=== PATIENT | male | born 1950 | race American Indian/Alaskan Native ===

== ENCOUNTER 2019-12-10 13:26 | Emergency (ER) | payer MEDICARE ==
--- NOTE | 2019-12-10 17:18 | Emergency Department Report ---
ED Medical Clearance HPI - General Chief complaint: BP Check / Ring removal req Stated complaint: HIGH BP Time Seen by Provider: 12/10/19 17:02 Source: patient Mode of arrival: Ambulatory - History of Present Illness Initial comments: 69-year-old -[place] male presents to the emergency room stated that he went to [facility] and his blood pressure was elevated so they sent him to the emergency room to be evaluated. Patient denies any headache no chest pain no shortness of breath. Patient reports no past medical history except chronic back pain. Patient reports he does not have a primary care provider. MD Complaint: medical clearance request Associated Symptoms: denies: chest pain, shortness of breath, palpitations, diaphoresis, fever/chills, headaches, weakness Treatments Prior to Arrival: none Allergies/Adverse reactions: Allergies Allergy/AdvReac Type Severity Reaction Status Date / Time No Known Allergies Allergy Unverified 12/10/19 14:03 ED Review of Systems ROS: Stated complaint: HIGH BP Other details as noted in HPI Comment: All other systems reviewed and negative ED Past Medical Hx - Past Medical History Previous Medical History?: No - Surgical History Past Surgical History?: No - Social History Smoking Status: Never Smoker ED Physical Exam - General Limitations: No Limitations General appearance: alert, in no apparent distress - Head Head exam: Present: atraumatic, normocephalic - Eye Eye exam: Present: normal appearance - ENT ENT exam: Present: mucous membranes moist - Respiratory Respiratory exam: Present: normal lung sounds bilaterally. Absent: respiratory distress - Cardiovascular Cardiovascular Exam: Present: regular rate, normal rhythm. Absent: systolic murmur, diastolic murmur, rubs, gallop - GI/Abdominal GI/Abdominal exam: Present: soft, normal bowel sounds - Extremities Exam Extremities exam: Present: normal inspection, full ROM. Absent: pedal edema - Back Exam Back exam: Present: full ROM - Neurological Exam Neurological exam: Present: alert, oriented X3, normal gait - Psychiatric Psychiatric exam: Present: normal affect, normal mood - Skin Skin exam: Present: warm, dry, intact, normal color. Absent: rash ED Course Vital Signs 12/10/19 14:01 Temperature 98.4 F Pulse Rate 53 L Respiratory 16 Rate Blood Pressure 185/90 O2 Sat by Pulse 98 Oximetry ED Medical Decision Making - Lab Data Result diagrams: 12/10/19 18:06 12/10/19 18:06 - Medical Decision Making 69-year-old -[place] male presents to the emergency room stated that he went to [facility] and his blood pressure was elevated so they sent him to the emergency room to be evaluated. Patient denies any headache no chest pain no shortness of breath. Patient reports no past medical history except chronic back pain. Patient reports he does not have a primary care provider. Patient has asymptomatic elevated blood pressure. We recommend patient to follow-up with a primary care provider so he can have his blood pressure rechecked and monitored. Labs are stable. Patient is to follow-up with her primary care provider. ED Disposition Clinical Impression: Elevated blood pressure reading Disposition: -01 TO HOME OR SELFCARE Is pt being admited?: No Does the pt Need Aspirin: No Condition: Stable Instructions: Heart Healthy Diet (ED), Low Sodium Diet (ED) Additional Instructions: Recommend for you to follow-up with a primary care provider Referrals: PRIMARY CARE [Primary Care Provider] - 3-5 Days
[2019-12-10 18:27] LABS: Basophils # (Auto) 0.1 K/mm3 (0.0-0.1); Basophils % (Auto) 1.7 % (0.0-1.8); Eosinophils # (Auto) 0.6 K/mm3 (0.0-0.4); Eosinophils % (Auto) 10.3 % (0.0-4.3); Hematocrit 46.4 % (35.5-45.6); Hemoglobin 15.6 gm/dl (11.8-15.2); Lymphocytes # (Auto) 1.7 K/mm3 (1.2-5.4); Lymphocytes % (Auto) 29.5 % (13.4-35.0); Mean Corpuscular HGB Conc 34 % (32-34); Mean Corpuscular Volume 92 fl (84-94); Monocytes # (Auto) 0.6 K/mm3 (0.0-0.8); Platelet Count 165 K/mm3 (140-440); Red Blood Count 5.05 M/mm3 (3.65-5.03); Red Cell Distribution Width 15.4 % (13.2-15.2)
[2019-12-10 18:48] LABS: Alanine Aminotransferase 20 units/L (7-56); Albumin 4.5 g/dL (3.9-5); BUN/Creatinine Ratio 14; Blood Urea Nitrogen 17 mg/dL (9-20); Calcium 9.7 mg/dL (8.4-10.2); Hemolysis Index 15
[2019-12-10 20:47] VITALS: BP 169/92
== END 2019-12-10 19:30 | disposition home or self-care (01) ==
LOC: ED 13:26
DX: R03.0 Elevated blood-pressure reading, without diagnosis of hypertension (principal)
CPT/HCPCS: 36415; 80053; 85025; 99283

== ENCOUNTER 2021-02-18 19:49 | Emergency (ER) | payer MEDICARE ==
[2021-02-18] MEDS ORDERED: SODIUM CHLORIDE 0.9% 1000 ML 1,000 ML IV ONE (21:15)
[2021-02-18] MEDS ORDERED: ONDANSETRON 4 MG/2 ML INJ IV ONE (21:15)
--- NOTE | 2021-02-18 21:16 | Emergency Department Report ---
ED Abdominal Pain HPI - General Stated Complaint: NAUSEA, WEAKNESS Time Seen by Provider: 02/18/21 21:04 - History of Present Illness Initial Comments: Patient presents ambulance with anorexia. He has had no appetite for 3 days. He has not eaten anything in 3 days. He has not had anything to drink. He states that he does have nausea. He does have epigastric pain. There is no history of recent travel or trauma. Is no cough congestion. There is no hematemesis or coffee-ground emesis. He has no melenic stool. Patient states he is never had symptoms like this before. There is no chest pain or shortness of breath. Has had no fever. He has had no sick contacts. He has not eaten anything that tasted bad unusual. Pain is kind of cramping and in the epigastric area. It does not radiate or migrate. He has not noticed aggravating or alleviating factors. - Related Data Allergies Allergy/AdvReac Type Severity Reaction Status Date / Time No Known Allergies Allergy Verified 02/18/21 22:00 ED Review of Systems ROS: Stated complaint: NAUSEA, WEAKNESS Other details as noted in HPI Comment: All other systems reviewed and negative Constitutional: denies: fever Eyes: denies: eye pain ENT: denies: throat pain Respiratory: denies: cough Cardiovascular: denies: chest pain Endocrine: denies: unexplained weight loss Gastrointestinal: as per HPI Genitourinary: denies: dysuria Musculoskeletal: denies: back pain Skin: denies: rash Neurological: denies: headache Hematological/Lymphatic: denies: easy bruising ED Past Medical Hx - Family History Family history: hypertension - Social History Smoking Status: Never Smoker ED Physical Exam - General Limitations: No Limitations, Other (Pulse ox noted and normal) General appearance: alert, in no apparent distress - Head Head exam: Present: atraumatic, normocephalic, normal inspection - Eye Eye exam: Present: normal appearance, EOMI. Absent: scleral icterus - ENT ENT exam: Present: mucous membranes dry, normal external ear exam - Neck Neck exam: Present: normal inspection. Absent: meningismus - Respiratory Respiratory exam: Present: normal lung sounds bilaterally. Absent: respiratory distress - Cardiovascular Cardiovascular Exam: Present: regular rate, normal rhythm - GI/Abdominal GI/Abdominal exam: Present: soft, tenderness (Mild epigastric). Absent: guarding, rebound, pulsatile mass - Extremities Exam Extremities exam: Present: normal capillary refill. Absent: pedal edema - Back Exam Back exam: Absent: CVA tenderness (R), CVA tenderness (L) - Neurological Exam Neurological exam: Present: alert, oriented X3, CN II-XII intact. Absent: motor sensory deficit - Psychiatric Psychiatric exam: Present: normal affect, normal mood - Skin Skin exam: Present: warm, dry ED Course Vital Signs 02/18/21 22:00 Temperature 97.8 F Pulse Rate 70 Respiratory 16 Rate Blood Pressure 147/88 [Right] O2 Sat by Pulse 99 Oximetry - Reevaluation(s) Reevaluation #1: 02/18/21 21:10 EMS was met. Labs ordered. Old records reviewed. Reevaluation #2: 02/18/21 23:[address] was ordered. Reevaluation #3: 02/19/21 01:[address] was noted. This was reviewed with the patient. Subsequently discharged. ED Medical Decision Making - Lab Data Result diagrams: 02/18/21 21:42 02/18/21 21:42 Rhythm strip: Normal sinus rhythm without ectopy per monitor observe 10 seconds. - Radiology Data Radiology results: report reviewed - Medical Decision Making Patient presents with abdominal pain and nausea and vomiting. He states that he felt weak. He did have some slightly bumped pancreatic enzyme but no CT evidence of acute pancreatitis. There is no bowel obstruction. There is no tumor there is no mass. He does have an acute kidney injury and has been hydrated. He had mild hyperkalemia but did not have symptoms from this. He had been hydrated as well. This will dilute his potassium. He certainly does not appear to be dehydrated clinically at this time. He feels well. Abdomen remains soft and nontender at this time. There is no distention or tympany. He has had no vomiting or diarrhea. I do believe the discharge would be appropriate. He is tolerating liquids at this time. He was referred back to his PCP for recheck and invited to return for any problems or concerns. We have discussed dehydration. We have discussed his electrolytes. At this time, there is no evidence of focal weakness. He is not taking exogenous potassium. He does not appear to be toxic. He is able to tolerate orals without difficulty. Critical Care Time: No Critical care attestation.: If time is entered above; I have spent that time in minutes in the direct care of this critically ill patient, excluding procedure time. ED Disposition Clinical Impression: General weakness, Anorexia, Hyperkalemia, HARDIK (acute kidney injury), Hyponatremia Disposition: 01 HOME / SELF CARE / HOMELESS Is pt being admited?: No Condition: Stable Instructions: Acute Kidney Injury, Adult, Weakness, [id number], Hyperkalemia Additional Instructions: Do not eat bananas or drink orange juice. Return for problems. Follow-up with your regular doctor in 48 hours for recheck. If you cannot follow-up with your doctor, return here. Eat a regular and balanced diet. Referrals: NEVAEH WILEY MD [Primary Care Provider] - 2-3 Days
[2021-02-18 22:07] LABS: Hematocrit 45.7 % (35.5-45.6); Hemoglobin 15.3 gm/dl (11.8-15.2); Mean Corpuscular HGB Conc 33 % (32-34); Mean Corpuscular Volume 93 fl (84-94); Red Blood Count 4.92 M/mm3 (3.65-5.03); Red Cell Distribution Width 17.3 % (13.2-15.2)
[2021-02-18 22:23] LABS: Alanine Aminotransferase 8 units/L (7-56); Albumin 4.2 g/dL (3.9-5); BUN/Creatinine Ratio 16; Blood Urea Nitrogen 28 mg/dL (9-20); Calcium 9.8 mg/dL (8.4-10.2); Hemolysis Index 62
[2021-02-18 22:29] LABS: Platelet Count 237 K/mm3 (140-440)
--- NOTE | 2021-02-19 00:08 | Cat Scan Report ---
CT ABDOMEN AND PELVIS WITHOUT CONTRAST INDICATION / CLINICAL INFORMATION: Abdominal pain, elevated lipase. TECHNIQUE: Axial CT images were obtained through the abdomen and pelvis without IV contrast. All CT scans at this location are performed using CT dose reduction for ALARA by means of automated exposure control. COMPARISON: None available. FINDINGS: LOWER CHEST: Mild bibasilar bronchiectasis and scarring. No acute airspace disease. LIVER: No significant abnormality. GALLBLADDER: No significant abnormality. BILE DUCTS: No significant abnormality. PANCREAS: No significant abnormality. No peripancreatic inflammation. SPLEEN: No significant abnormality. ADRENALS: No significant abnormality. RIGHT KIDNEY / URETER: No significant abnormality. LEFT KIDNEY / URETER: No significant abnormality. STOMACH / SMALL BOWEL: No significant abnormality. COLON: No significant abnormality. APPENDIX: No significant abnormality. PERITONEUM: No free fluid. No free air. No fluid collection. LYMPH NODES: No significant adenopathy. AORTA / ARTERIES: Mild atherosclerotic calcification without acute abnormality. IVC / VEINS: No significant abnormality. URINARY BLADDER: No significant abnormality. REPRODUCTIVE ORGANS: No significant abnormality. ADDITIONAL FINDINGS: None. SKELETAL SYSTEM: No significant abnormality. IMPRESSION: 1. No acute process in the abdomen or pelvis. No CT evidence for acute pancreatitis. Signer Name: Timbo Montoya MD Signed: 02/19/2021 12:04 AM Workstation Name: [id number]
[2021-02-19] MEDS ORDERED: METOCLOPRAMIDE 10 MG/2 ML INJ IV ONE (01:31)
[2021-02-19 02:22] VITALS: BP 127/87
== END 2021-02-19 02:23 | disposition home or self-care (01) ==
LOC: ED 19:49
DX: E87.5 Hyperkalemia (principal); R53.1 Weakness; R63.0 Anorexia; N17.9 Acute kidney failure, unspecified; E87.1 Hypo-osmolality and hyponatremia; R10.13 Epigastric pain
CPT/HCPCS: 36415; 74176; 80053; 83690; 84484; 85027; 96361; 96374; 96375; 99284; J2405; J2765; J7030

== ENCOUNTER 2021-05-06 23:57 | Inpatient (IN) | payer MEDICARE ==
[2021-05-07] MEDS ORDERED: ACETAMINOPHEN 500 MG TAB PO ONE (05:32)
--- NOTE | 2021-05-07 05:34 | Event Note ---
ED Screening Note Date of service: 05/07/21 Time: 05:33 ED Screening Note: Patient is a 20-year-old -[place]ian male with a history of chronic renal failure who presented to the ED with complaint of acute onset persistent bilateral foot and ankle swelling with severe pain for the last 1 week, worse in the last 2 days. Patient states that he has been on his feet extensively in the last 1 week and that the swelling has worsened. Patient denies dizziness, syncope, chest pain, shortness of breath, traumatic injury, fall, numbness and tingling or weakness of lower extremities bilaterally, low back pain, fever and chills. This initial assessment/diagnostic orders/clinical plan/treatment(s) is/are subject to change based on patients health status, clinical progression and re- assessment by fellow clinical providers in the ED. Further treatment and workup at subsequent clinical providers discretion. Patient/guardian urged not to elope from the ED as their condition may be serious if not clinically assessed and managed. Initial orders include: CBC, CMP, BNP,
[2021-05-07 06:29] LABS: Basophils # (Auto) 0.1 K/mm3 (0.0-0.1); Basophils % (Auto) 0.6 % (0.0-1.8); Eosinophils % (Auto) 0.5 % (0.0-4.3); Hematocrit 36.3 % (35.5-45.6); Hemoglobin 11.7 gm/dl (11.8-15.2); Lymphocytes # (Auto) 1.3 K/mm3 (1.2-5.4); Lymphocytes % (Auto) 15.1 % (13.4-35.0); Mean Corpuscular HGB Conc 32 % (32-34); Mean Corpuscular Volume 87 fl (84-94); Monocytes # (Auto) 1.2 K/mm3 (0.0-0.8); Monocytes % (Auto) 13.7 % (0.0-7.3); Platelet Count 233 K/mm3 (140-440); Red Blood Count 4.16 M/mm3 (3.65-5.03); Red Cell Distribution Width 16.4 % (13.2-15.2)
[2021-05-07 06:53] LABS: Alanine Aminotransferase 11 units/L (7-56); Albumin 3.8 g/dL (3.9-5); BUN/Creatinine Ratio 13; Blood Urea Nitrogen 18 mg/dL (9-20); Calcium 8.8 mg/dL (8.4-10.2); Hemolysis Index 0
--- NOTE | 2021-05-07 06:55 | Emergency Department Report ---
ED General Adult HPI - General Chief complaint: Extremity Problem,Nontraumatic Stated complaint: DOES NOT FEEL WELL PUI?: No Time Seen by Provider: 05/07/21 06:33 Source: patient Mode of arrival: Wheelchair Limitations: No Limitations, Physical Limitation - History of Present Illness Initial comments: Chief complaint: Feet swelling HPI: This is a 70-year-old male with history of CKD, hypertension, depression who presents with ankle and foot swelling with pain for 1 to 2 weeks. He denies shortness of breath, chest pain. No known history of heart failure. -: Gradual, week(s) (1 to 2 weeks) Location: left, right, lower extremity Severity scale (0 -10): 5 Consistency: constant Improves with: none Worsens with: none Associated Symptoms: denies other symptoms Treatments Prior to Arrival: none - Related Data Allergies Allergy/AdvReac Type Severity Reaction Status Date / Time No Known Allergies Allergy Verified 02/18/21 22:00 ED Review of Systems ROS: Stated complaint: DOES NOT FEEL WELL Other details as noted in HPI Comment: All other systems reviewed and negative Constitutional: denies: fever, malaise Respiratory: denies: cough, shortness of breath Cardiovascular: denies: chest pain Gastrointestinal: denies: abdominal pain, nausea, vomiting Skin: rash, lesions, change in color ED Past Medical Hx - Past Medical History Previous Medical History?: Yes Hx Hypertension: Yes Hx Psychiatric Treatment: (depression) - Surgical History Past Surgical History?: No - Social History Smoking Status: Never Smoker Substance Use Type: None ED Physical Exam - General Limitations: No Limitations, Physical Limitation General appearance: alert, in no apparent distress - Head Head exam: Present: atraumatic, normocephalic - Eye Eye exam: Present: normal appearance - ENT ENT exam: Present: mucous membranes moist - Neck Neck exam: Present: normal inspection, full ROM - Respiratory Respiratory exam: Present: normal lung sounds bilaterally. Absent: respiratory distress, wheezes, rales, rhonchi, stridor - Cardiovascular Cardiovascular Exam: Present: regular rate, normal rhythm. Absent: systolic murmur, diastolic murmur, rubs, gallop - GI/Abdominal GI/Abdominal exam: Present: soft, normal bowel sounds. Absent: distended, tenderness, guarding, rebound - Rectal Rectal exam: Present: deferred - Extremities Exam Extremities exam: Present: other (Bilateral feet erythematous edematous intact pedal pulses, lower legs scaly flaking skin) - Back Exam Back exam: Present: normal inspection - Neurological Exam Neurological exam: Present: alert, oriented X3 - Psychiatric Psychiatric exam: Present: normal mood, flat affect - Skin Skin exam: Present: warm, dry, intact, normal color. Absent: rash ED Course Vital Signs 05/07/21 03:31 Temperature 99.3 F Pulse Rate 80 Respiratory 19 Rate Blood Pressure 180/100 [Right] O2 Sat by Pulse 97 Oximetry ED Medical Decision Making - Lab Data Result diagrams: 05/07/21 06:09 05/07/21 06:09 - EKG Data -: EKG Interpreted by Me - EKG Data 05/07/21 08:52 EKG obtained 0846 EKG read by me Rate 70 bpm normal sinus rhythm normal axis normal intervals PVC present positive LVH no significant ST elevation nonspecific T wave pattern - Radiology Data Radiology results: report reviewed [facility] [address] [place] [address] XRay Report Signed Patient: MOO ROCHA MR#: [id number] : 1950 Acct:[id number] Age/Sex: 70 / M ADM Date: 05/06/21 Loc: ED Attending Dr: Ordering Physician: Franci Murguia MD Date of Service: 05/07/21 Procedure(s): XR chest routine 2V Accession Number(s): [id number] cc: Franci Murguia MD Fluoro Time In Minutes: CHEST 2 VIEWS INDICATION / CLINICAL INFORMATION: leg swelling. COMPARISON: None available. FINDINGS: SUPPORT DEVICES: None. HEART / MEDIASTINUM: No significant abnormality. LUNGS / PLEURA: Mild increased interstitial prominence/chronic changes in the lower lungs No pneumothorax. ADDITIONAL FINDINGS: No significant additional findings. IMPRESSION: 1. No acute findings. Signer Name: Mariusz Melgar MD Signed: 05/07/2021 7:51 AM Workstation Name: [id number] Transcribed By: WOODY Dictated By: NEERU MELGAR MD Electronically Authenticated By: NEERU MELGAR MD Signed Date/Time: 05/07/21750 DD/ 9 TD/TT: - Medical Decision Making 1. Subacute lower extremity swelling due to right-sided heart failure will need further evaluation treatment Admitted to hospital service. 2. Venous stasis dermatitis with superimposed cellulitis: IV clindamycin administered in the ED Critical care attestation.: If time is entered above; I have spent that time in minutes in the direct care of this critically ill patient, excluding procedure time. ED Disposition Clinical Impression: Acute heart failure, Venous stasis dermatitis of both lower extremities, Bilateral lower leg cellulitis Disposition: 09 ADMITTED INPATIENT Is pt being admited?: Yes Does the pt Need Aspirin: No Condition: Stable Referrals: SILVERIO CEJA MD [Primary Care Provider] - 3-5 Days
--- NOTE | 2021-05-07 07:55 | XRay Report ---
CHEST 2 VIEWS INDICATION / CLINICAL INFORMATION: leg swelling. COMPARISON: None available. FINDINGS: SUPPORT DEVICES: None. HEART / MEDIASTINUM: No significant abnormality. LUNGS / PLEURA: Mild increased interstitial prominence/chronic changes in the lower lungs No pneumoth orax. ADDITIONAL FINDINGS: No significant additional findings. IMPRESSION: 1. No acute findings. Signer Name: Mariusz Melgar MD Signed: 05/07/2021 7:51 AM Workstation Name: [id number] [id number]
[2021-05-07] MEDS ORDERED: CLINDAMYCIN 600 MG/50 mL 600 MG/50 ML BAG IV ONE (08:19)
--- NOTE | 2021-05-07 09:45 | History and Physical Report ---
History of Present Illness Date of examination: 05/07/21 Date of admission: 05/07/2021 Chief complaint: BLE edema History of present illness: 70-year-old male with history of CKD, hypertension, depression who presents with ankle and foot swelling with pain for 1 to 2 weeks. He denies shortness of breath, chest pain. No headache or visual disturbances. Patient denies PND or orthopnea. No diaphoresis. No nausea vomiting Past History Past Medical History: hypertension Medications and Allergies Allergies Allergy/AdvReac Type Severity Reaction Status Date / Time No Known Allergies Allergy Verified 02/18/21 22:00 Review of Systems All systems: negative Exam - Constitutional Vitals: Temp Pulse Resp BP Pulse Ox 99.3 F 80 19 180/100 97 05/07/21 03:31 05/07/21 03:31 05/07/21 03:31 05/07/21 03:31 05/07/21 03:31 General appearance: Present: no acute distress, well-nourished - EENT Eyes: Present: PERRL ENT: hearing intact, clear oral mucosa - Neck Neck: Present: supple, normal ROM - Respiratory Respiratory effort: normal Respiratory: bilateral: CTA - Cardiovascular Heart Sounds: Present: S1 & S2. Absent: rub, click - Extremities Extremities: pulses symmetrical Extremity abnormal: edema Peripheral Pulses: within normal limits - Abdominal General gastrointestinal: Present: soft, non-tender, non-distended, normal bowel sounds Male genitourinary: Present: normal - Integumentary Integumentary: Present: clear, warm, dry - Musculoskeletal Musculoskeletal: gait normal, strength equal bilaterally - Psychiatric Psychiatric: appropriate mood/affect, intact judgment & insight - Neurologic Neurologic: CNII-XII intact, moves all extremities HEART Score - HEART Score Troponin: Troponin T < 0.010 ng/mL (0.00-0.029) 05/07/21 07:10 Results - Labs CBC & Chem 7: 05/07/21 06:09 05/07/21 06:09 Labs: Laboratory Last Values WBC 8.6 K/mm3 (4.5-11.0) 05/07/21 06:09 RBC 4.16 M/mm3 (3.65-5.03) 05/07/21 06:09 Hgb 11.7 gm/dl (11.8-15.2) L 05/07/21 06:09 Hct 36.3 % (35.5-45.6) 05/07/21 06:09 MCV 87 fl (84-94) 05/07/21 06:09 MCH 28 pg (28-32) 05/07/21 06:09 MCHC 32 % (32-34) 05/07/21 06:09 RDW 16.4 % (13.2-15.2) H 05/07/21 06:09 Plt Count 233 K/mm3 (140-440) 05/07/21 06:09 Lymph % (Auto) 15.1 % (13.4-35.0) 05/07/21 06:09 Hood % (Auto) 13.7 % (0.0-7.3) H 05/07/21 06:09 Eos % (Auto) 0.5 % (0.0-4.3) 05/07/21 06:09 Baso % (Auto) 0.6 % (0.0-1.8) 05/07/21 06:09 Lymph # (Auto) 1.3 K/mm3 (1.2-5.4) 05/07/21 06:09 Hood # (Auto) 1.2 K/mm3 (0.0-0.8) H 05/07/21 06:09 Eos # (Auto) 0.0 K/mm3 (0.0-0.4) 05/07/21 06:09 Baso # (Auto) 0.1 K/mm3 (0.0-0.1) 05/07/21 06:09 Seg Neutrophils % 70.1 % (40.0-70.0) H 05/07/21 06:09 Seg Neutrophils # 6.1 K/mm3 (1.8-7.7) 05/07/21 06:09 Sodium 144 mmol/L (137-145) 05/07/21 06:09 Potassium 4.5 mmol/L (3.6-5.0) 05/07/21 06:09 Chloride 104.1 mmol/L (98-107) 05/07/21 06:09 Carbon Dioxide 26 mmol/L (22-30) 05/07/21 06:09 Anion Gap 18 mmol/L 05/07/21 06:09 BUN 18 mg/dL (9-20) 05/07/21 06:09 Creatinine 1.4 mg/dL (0.8-1.3) H 05/07/21 06:09 Estimated GFR > 60 ml/min 05/07/21 06:09 BUN/Creatinine Ratio 13 % 05/07/21 06:09 Glucose 112 mg/dL (75-100) H 05/07/21 06:09 Calcium 8.8 mg/dL (8.4-10.2) 05/07/21 06:09 Total Bilirubin 0.50 mg/dL (0.1-1.2) 05/07/21 06:09 AST 29 units/L (5-40) 05/07/21 06:09 ALT 11 units/L (7-56) 05/07/21 06:09 Alkaline Phosphatase 93 units/L (35-129) 05/07/21 06:09 Troponin T < 0.010 ng/mL (0.00-0.029) 05/07/21 07:10 NT-Pro-B Natriuret Pep 1206 pg/mL (0-900) H 05/07/21 06:09 Total Protein 7.0 g/dL (6.3-8.2) 05/07/21 06:09 Albumin 3.8 g/dL (3.9-5) L 05/07/21 06:09 Albumin/Globulin Ratio 1.2 % 05/07/21 06:09 Assessment and Plan Assessment and plan: Mild CHF. Bilateral lower extremity edema Hypertension 05/07/2021. Patient will be admitted to the hospital with diagnosis of mild heart failure. Etiology of systolic or diastolic dysfunction yet to be determined. We will obtain an echocardiogram for further evaluation. Patient has a mildly elevated BNP at 1206. We will also check bilateral lower extremity Dopplers for lower extremity edema
[2021-05-07] MEDS ORDERED: ONDANSETRON 4 MG/2 ML INJ IV PRN ×2 (09:48→09:52)
[2021-05-07] MEDS ORDERED: MORPHINE 4 MG/1 ML INJ IV PRN ×2 (09:48→21:48)
[2021-05-07] MEDS ORDERED: ACETAMINOPHEN 325 MG TAB PO PRN ×3 (09:48→21:48)
[2021-05-07] MEDS: carvediloL 3.125 MG TAB PO SCH (13:17)
[2021-05-07] MEDS: FUROSEMIDE 20 MG/2 ML INJ IV SCH (13:18)
[2021-05-07] MEDS: LISINOPRIL 5 MG TAB PO SCH (14:28)
[2021-05-07] MEDS ORDERED: MORPHINE 2 MG/1 ML INJ IV PRN (21:48)
[2021-05-08] MEDS: LISINOPRIL 5 MG TAB PO SCH ×3 (00:40→21:49)
[2021-05-08] MEDS: carvediloL 3.125 MG TAB PO SCH ×3 (00:40→21:48)
[2021-05-08] MEDS: HYDROcodone/ACETAMINOPHEN 5-325 MG TAB PO PRN ×3 (00:47→21:49)
[2021-05-08 08:38] LABS: Basophils % (Auto) 0.7 % (0.0-1.8); Eosinophils # (Auto) 0.1 K/mm3 (0.0-0.4); Eosinophils % (Auto) 1.2 % (0.0-4.3); Hematocrit 34.4 % (35.5-45.6); Hemoglobin 10.9 gm/dl (11.8-15.2); Lymphocytes # (Auto) 1.3 K/mm3 (1.2-5.4); Lymphocytes % (Auto) 21.8 % (13.4-35.0); Mean Corpuscular HGB Conc 32 % (32-34); Mean Corpuscular Volume 87 fl (84-94); Monocytes # (Auto) 0.9 K/mm3 (0.0-0.8); Monocytes % (Auto) 15.2 % (0.0-7.3); Platelet Count 285 K/mm3 (140-440); Red Blood Count 3.95 M/mm3 (3.65-5.03); Red Cell Distribution Width 16.6 % (13.2-15.2)
[2021-05-08 09:01] LABS: BUN/Creatinine Ratio 14; Blood Urea Nitrogen 20 mg/dL (9-20); Calcium 8.8 mg/dL (8.4-10.2); Hemolysis Index 4
--- NOTE | 2021-05-08 09:19 | Progress Note ---
Assessment and Plan Assessment and plan: Mild CHF. Bilateral lower extremity edema Hypertension 05/07/2021. Patient will be admitted to the hospital with diagnosis of mild heart failure. Etiology of systolic or diastolic dysfunction yet to be determined. We will obtain an echocardiogram for further evaluation. Patient has a mildly elevated BNP at 1206. We will also check bilateral lower extremity Dopplers for lower extremity edema 05/08/2021. Await bilateral lower extremity Dopplers and echocardiogram. Consider cardiology consultation for CHF. Continue aspirin, Coreg 3.125 p.o. twice daily, lisinopril 5 mg p.o. twice daily and Lasix IV. History Interval history: No new issues overnight Hospitalist Physical - Constitutional Vitals: Temp Pulse Resp BP Pulse Ox 98.4 F 74 18 148/78 98 05/08/21 08:09 05/08/21 08:09 05/08/21 08:09 05/08/21 08:09 05/08/21 08:09 General appearance: Present: no acute distress, well-nourished - EENT Eyes: Present: PERRL, EOM intact ENT: hearing intact, clear oral mucosa, dentition normal - Neck Neck: Present: supple, normal ROM - Respiratory Respiratory effort: normal Respiratory: bilateral: CTA - Cardiovascular Rhythm: regular Heart Sounds: Present: S1 & S2. Absent: gallop, rub - Extremities Extremities: no ischemia, No edema, Full ROM - Abdominal General gastrointestinal: soft, non-tender, non-distended, normal bowel sounds - Integumentary Integumentary: Present: clear, warm, dry - Neurologic Neurologic: CNII-XII intact, moves all extremities HEART Score - HEART Score Troponin: Troponin T < 0.010 ng/mL (0.00-0.029) 05/07/21 07:10 Results - Labs CBC & Chem 7: 05/08/21 08:19 05/08/21 08:19 Labs: Laboratory Last Values WBC 5.7 K/mm3 (4.5-11.0) 05/08/21 08:19 RBC 3.95 M/mm3 (3.65-5.03) 05/08/21 08:19 Hgb 10.9 gm/dl (11.8-15.2) L 05/08/21 08:19 Hct 34.4 % (35.5-45.6) L 05/08/21 08:19 MCV 87 fl (84-94) 05/08/21 08:19 MCH 28 pg (28-32) 05/08/21 08:19 MCHC 32 % (32-34) 05/08/21 08:19 RDW 16.6 % (13.2-15.2) H 05/08/21 08:19 Plt Count 285 K/mm3 (140-440) 05/08/21 08:19 Lymph % (Auto) 21.8 % (13.4-35.0) 05/08/21 08:19 [place] % (Auto) 15.2 % (0.0-7.3) H 05/08/21 08:19 Eos % (Auto) 1.2 % (0.0-4.3) 05/08/21 08:19 Baso % (Auto) 0.7 % (0.0-1.8) 05/08/21 08:19 Lymph # (Auto) 1.3 K/mm3 (1.2-5.4) 05/08/21 08:19 [place] # (Auto) 0.9 K/mm3 (0.0-0.8) H 05/08/21 08:19 Eos # (Auto) 0.1 K/mm3 (0.0-0.4) 05/08/21 08:19 Baso # (Auto) 0.0 K/mm3 (0.0-0.1) 05/08/21 08:19 Seg Neutrophils % 61.1 % (40.0-70.0) 05/08/21 08:19 Seg Neutrophils # 3.5 K/mm3 (1.8-7.7) 05/08/21 08:19 Sodium 138 mmol/L (137-145) 05/08/21 08:19 Potassium 3.9 mmol/L (3.6-5.0) 05/08/21 08:19 Chloride 101.2 mmol/L (98-107) 05/08/21 08:19 Carbon Dioxide 25 mmol/L (22-30) 05/08/21 08:19 Anion Gap 16 mmol/L 05/08/21 08:19 BUN 20 mg/dL (9-20) 05/08/21 08:19 Creatinine 1.4 mg/dL (0.8-1.3) H 05/08/21 08:19 Estimated GFR > 60 ml/min 05/08/21 08:19 BUN/Creatinine Ratio 14 % 05/08/21 08:19 Glucose 93 mg/dL (75-100) 05/08/21 08:19 Calcium 8.8 mg/dL (8.4-10.2) 05/08/21 08:19 Total Bilirubin 0.50 mg/dL (0.1-1.2) 05/07/21 06:09 AST 29 units/L (5-40) 05/07/21 06:09 ALT 11 units/L (7-56) 05/07/21 06:09 Alkaline Phosphatase 93 units/L (35-129) 05/07/21 06:09 Troponin T < 0.010 ng/mL (0.00-0.029) 05/07/21 07:10 NT-Pro-B Natriuret Pep 1206 pg/mL (0-900) H 05/07/21 06:09 Total Protein 7.0 g/dL (6.3-8.2) 05/07/21 06:09 Albumin 3.8 g/dL (3.9-5) L 05/07/21 06:09 Albumin/Globulin Ratio 1.2 % 05/07/21 06:09 Paez/IV: Voiding Method Urinal Active Medications - Current Medications Current Medications: Generic Name Dose Route Start Last Admin Trade Name Freq PRN Reason Stop Dose Admin Acetaminophen 650 mg 05/07/21 09:48 Acetaminophen 325 Mg Tab PO Q4H PRN Pain MILD(1-3)/Fever >100.5/[place] Hydrocodone Bitart/Acetaminophen 2 each 05/07/21 09:48 05/08/21 00:47 Hydrocodone/Acetaminophen 5-325 Mg Tab PO 2 each Q6H PRN Administration Pain, Moderate (4-6) Carvedilol 3.125 mg 05/07/21 12:00 05/08/21 00:40 Carvedilol 3.125 Mg Tab PO 3.125 mg BID FREDI Administration Furosemide 20 mg 05/07/21 12:00 05/07/21 13:18 Furosemide 20 Mg/2 Ml Inj IV 20 mg QDAY FREDI Administration Lisinopril 5 mg 05/07/21 12:00 05/08/21 00:40 Lisinopril 5 Mg Tab PO 5 mg BID FREDI Administration Morphine Sulfate 2 mg 05/07/21 09:48 Morphine 4 Mg/1 Ml Inj IV Q4H PRN Pain , Severe (7-10) Morphine Sulfate 4 mg 05/07/21 21:48 Morphine 4 Mg/1 Ml Inj IV Q4H PRN Pain , Severe (7-10) Ondansetron HCl 4 mg 05/07/21 09:52 Ondansetron 4 Mg/2 Ml Inj IV Q8H PRN Nausea And Vomiting Sodium Chloride 10 ml 05/07/21 10:00 05/08/21 00:40 Sodium Chloride 0.9% 10 Ml Flush Syringe IV 10 ml BID FREDI Administration Sodium Chloride 10 ml 05/07/21 09:48 Sodium Chloride 0.9% 10 Ml Flush Syringe IV PRN PRN LINE FLUSH Sodium Chloride 10 ml 05/07/21 10:00 05/08/21 00:40 Sodium Chloride 0.9% 10 Ml Flush Syringe IV 10 ml BID FREDI Administration Sodium Chloride 10 ml 05/07/21 09:52 Sodium Chloride 0.9% 10 Ml Flush Syringe IV PRN PRN LINE FLUSH
[2021-05-08] MEDS: FUROSEMIDE 20 MG/2 ML INJ IV SCH (09:36)
[2021-05-09 06:16] LABS: Basophils # (Auto) 0.1 K/mm3 (0.0-0.1); Basophils % (Auto) 1.2 % (0.0-1.8); Eosinophils # (Auto) 0.1 K/mm3 (0.0-0.4); Hematocrit 34.8 % (35.5-45.6); Hemoglobin 10.8 gm/dl (11.8-15.2); Lymphocytes # (Auto) 1.4 K/mm3 (1.2-5.4); Lymphocytes % (Auto) 25.2 % (13.4-35.0); Mean Corpuscular HGB Conc 31 % (32-34); Mean Corpuscular Volume 88 fl (84-94); Monocytes # (Auto) 0.9 K/mm3 (0.0-0.8); Monocytes % (Auto) 15.8 % (0.0-7.3); Platelet Count 316 K/mm3 (140-440); Red Blood Count 3.95 M/mm3 (3.65-5.03); Red Cell Distribution Width 16.2 % (13.2-15.2)
[2021-05-09 06:34] LABS: BUN/Creatinine Ratio 17; Blood Urea Nitrogen 20 mg/dL (9-20); Calcium 8.7 mg/dL (8.4-10.2); Hemolysis Index 19
--- NOTE | 2021-05-09 08:54 | Progress Note ---
Assessment and Plan Assessment and plan: Mild diastolic heart failure exacerbation. Bilateral lower extremity edema Hypertension 05/07/2021. Patient will be admitted to the hospital with diagnosis of mild heart failure. Etiology of systolic or diastolic dysfunction yet to be determined. We will obtain an echocardiogram for further evaluation. Patient has a mildly elevated BNP at 1206. We will also check bilateral lower extremity Dopplers for lower extremity edema 05/08/2021. Await bilateral lower extremity Dopplers and echocardiogram. Consider cardiology consultation for CHF. Continue aspirin, Coreg 3.125 p.o. twice daily, lisinopril 5 mg p.o. twice daily and Lasix IV. 05/09/2021. Echocardiogram reveals left ventricular size normal with function normal as well. LVEF is 60-65%. Patient with bilateral lower extremity edema. Await bilateral lower extremity Dopplers. Anticipate discharge later today or in a.m. History Interval history: No new issues overnight Hospitalist Physical - Constitutional Vitals: Temp Pulse Resp BP Pulse Ox 98.0 F 78 18 166/93 96 05/09/21 08:41 05/09/21 08:41 05/09/21 08:41 05/09/21 08:41 05/09/21 08:41 General appearance: Present: no acute distress, well-nourished - EENT Eyes: Present: PERRL, EOM intact ENT: hearing intact, clear oral mucosa, dentition normal - Neck Neck: Present: supple, normal ROM - Respiratory Respiratory effort: normal Respiratory: bilateral: CTA - Cardiovascular Rhythm: regular Heart Sounds: Present: S1 & S2. Absent: gallop, rub - Extremities Extremities: no ischemia, No edema, Full ROM - Abdominal General gastrointestinal: soft, non-tender, non-distended, normal bowel sounds - Integumentary Integumentary: Present: clear, warm, dry - Neurologic Neurologic: CNII-XII intact, moves all extremities HEART Score - HEART Score Troponin: Troponin T < 0.010 ng/mL (0.00-0.029) 05/07/21 07:10 Results - Labs CBC & Chem 7: 05/09/21 06:03 05/09/21 06:03 Labs: Laboratory Last Values WBC 5.7 K/mm3 (4.5-11.0) 05/09/21 06:03 RBC 3.95 M/mm3 (3.65-5.03) 05/09/21 06:03 Hgb 10.8 gm/dl (11.8-15.2) L 05/09/21 06:03 Hct 34.8 % (35.5-45.6) L 05/09/21 06:03 MCV 88 fl (84-94) 05/09/21 06:03 MCH 28 pg (28-32) 05/09/21 06:03 MCHC 31 % (32-34) L 05/09/21 06:03 RDW 16.2 % (13.2-15.2) H 05/09/21 06:03 Plt Count 316 K/mm3 (140-440) 05/09/21 06:03 Lymph % (Auto) 25.2 % (13.4-35.0) 05/09/21 06:03 [place] % (Auto) 15.8 % (0.0-7.3) H 05/09/21 06:03 Eos % (Auto) 1.0 % (0.0-4.3) 05/09/21 06:03 Baso % (Auto) 1.2 % (0.0-1.8) 05/09/21 06:03 Lymph # (Auto) 1.4 K/mm3 (1.2-5.4) 05/09/21 06:03 [place] # (Auto) 0.9 K/mm3 (0.0-0.8) H 05/09/21 06:03 Eos # (Auto) 0.1 K/mm3 (0.0-0.4) 05/09/21 06:03 Baso # (Auto) 0.1 K/mm3 (0.0-0.1) 05/09/21 06:03 Seg Neutrophils % 56.8 % (40.0-70.0) 05/09/21 06:03 Seg Neutrophils # 3.2 K/mm3 (1.8-7.7) 05/09/21 06:03 Sodium 143 mmol/L (137-145) 05/09/21 06:03 Potassium 4.5 mmol/L (3.6-5.0) 05/09/21 06:03 Chloride 104.2 mmol/L (98-107) 05/09/21 06:03 Carbon Dioxide 26 mmol/L (22-30) 05/09/21 06:03 Anion Gap 17 mmol/L 05/09/21 06:03 BUN 20 mg/dL (9-20) 05/09/21 06:03 Creatinine 1.2 mg/dL (0.8-1.3) 05/09/21 06:03 Estimated GFR > 60 ml/min 05/09/21 06:03 BUN/Creatinine Ratio 17 % 05/09/21 06:03 Glucose 94 mg/dL (75-100) 05/09/21 06:03 Calcium 8.7 mg/dL (8.4-10.2) 05/09/21 06:03 Total Bilirubin 0.50 mg/dL (0.1-1.2) 05/07/21 06:09 AST 29 units/L (5-40) 05/07/21 06:09 ALT 11 units/L (7-56) 05/07/21 06:09 Alkaline Phosphatase 93 units/L (35-129) 05/07/21 06:09 Troponin T < 0.010 ng/mL (0.00-0.029) 05/07/21 07:10 NT-Pro-B Natriuret Pep 1206 pg/mL (0-900) H 05/07/21 06:09 Total Protein 7.0 g/dL (6.3-8.2) 05/07/21 06:09 Albumin 3.8 g/dL (3.9-5) L 05/07/21 06:09 Albumin/Globulin Ratio 1.2 % 05/07/21 06:09 Paez/IV: Voiding Method Urinal Active Medications - Current Medications Current Medications: Generic Name Dose Route Start Last Admin Trade Name Freq PRN Reason Stop Dose Admin Acetaminophen 650 mg 05/07/21 09:48 Acetaminophen 325 Mg Tab PO Q4H PRN Pain MILD(1-3)/Fever >100.5/[place] Hydrocodone Bitart/Acetaminophen 2 each 05/07/21 09:48 05/08/21 21:49 Hydrocodone/Acetaminophen 5-325 Mg Tab PO 2 each Q6H PRN Administration Pain, Moderate (4-6) Carvedilol 3.125 mg 05/07/21 12:00 05/08/21 21:48 Carvedilol 3.125 Mg Tab PO 3.125 mg BID FREDI Administration Furosemide 20 mg 05/07/21 12:00 05/08/21 09:36 Furosemide 20 Mg/2 Ml Inj IV 20 mg QDAY FREDI Administration Lisinopril 5 mg 05/07/21 12:00 05/08/21 21:49 Lisinopril 5 Mg Tab PO 5 mg BID FREDI Administration Morphine Sulfate 2 mg 05/07/21 09:48 Morphine 4 Mg/1 Ml Inj IV Q4H PRN Pain , Severe (7-10) Morphine Sulfate 4 mg 05/07/21 21:48 Morphine 4 Mg/1 Ml Inj IV Q4H PRN Pain , Severe (7-10) Ondansetron HCl 4 mg 05/07/21 09:52 Ondansetron 4 Mg/2 Ml Inj IV Q8H PRN Nausea And Vomiting Sodium Chloride 10 ml 05/07/21 10:00 05/08/21 21:49 Sodium Chloride 0.9% 10 Ml Flush Syringe IV 10 ml BID FREDI Administration Sodium Chloride 10 ml 05/07/21 09:48 Sodium Chloride 0.9% 10 Ml Flush Syringe IV PRN PRN LINE FLUSH Sodium Chloride 10 ml 05/07/21 10:00 05/08/21 21:49 Sodium Chloride 0.9% 10 Ml Flush Syringe IV 10 ml BID FREDI Administration
[2021-05-09] MEDS: LISINOPRIL 5 MG TAB PO SCH ×2 (11:13→21:56)
[2021-05-09] MEDS: carvediloL 3.125 MG TAB PO SCH ×2 (11:13→21:56)
[2021-05-09] MEDS: FUROSEMIDE 20 MG/2 ML INJ IV SCH (11:14)
--- NOTE | 2021-05-09 14:12 | Vascular Lab Report ---
DUPLEX DOPPLER LOWER EXTREMITY VEINS, BILATERAL INDICATION / CLINICAL INFORMATION: BLE edema. TECHNIQUE: Duplex doppler imaging was performed through the veins of both lower extremities using arely ous compression and other maneuvers. COMPARISON: None available. FINDINGS: RIGHT COMMON FEMORAL VEIN: Negative. RIGHT FEMORAL VEIN: Negative. RIGHT POPLITEAL VEIN: Negative. RIGHT CALF VEINS: Negative. LEFT COMMON FEMORAL VEIN: Negative. LEFT FEMORAL VEIN: Negative. LEFT POPLITEAL VEIN: Negative. LEFT CALF VEINS: Negative. ADDITIONAL FINDINGS: None. IMPRESSION: 1. No sonographic evidence for DVT in either lower extremity. Signer Name: Ryan Sims MD Signed: 05/09/2021 2:08 PM Workstation Name: [id number]
[2021-05-09] MEDS: HYDROcodone/ACETAMINOPHEN 5-325 MG TAB PO PRN (21:55)
[2021-05-10] MEDS: FUROSEMIDE 20 MG/2 ML INJ IV SCH (09:32)
[2021-05-10] MEDS: carvediloL 3.125 MG TAB PO SCH ×2 (09:32→21:25)
[2021-05-10] MEDS: LISINOPRIL 5 MG TAB PO SCH ×2 (09:33→21:24)
[2021-05-10] MEDS: HYDROcodone/ACETAMINOPHEN 5-325 MG TAB PO PRN ×2 (09:33→21:24)
--- NOTE | 2021-05-10 12:40 | Discharge Summary ---
Providers - Providers Date of Admission: 05/07/21 21:48 Date of discharge: 05/10/21 Attending physician: LEAH ROSENTHAL MD [facility] Reason for admission: HARDIK Condition: Stable Pertinent studies: Reviewed. Procedures: None. Hospital course: The patient is a 70-year-old male with past medical history of hypertension and depression who presented with bilateral ankle and foot swelling for approximately 1 to 2 weeks. The patient endorses "not feeling well". Patient was found to be hemodynamically stable on presentation; however, the patient had an HARDIK with a creatinine of 1.4. The patient was found to be negative for coronavirus. The patient was found to have an elevated BNP of 1206. A TTE was ordered and was unremarkable with an EF of 60-65%. Bilateral venous Dopplers were performed to evaluate for possible DVT, and it was unremarkable. The patient's creatinine has decreased to 1.2. Patient is currently medically ready for discharge. Patient expresses understanding. Disposition: 01 HOME / SELF CARE / HOMELESS Final Discharge Diagnosis (Prints w/discharge instructions): Mild acute on chronic diastolic heart failure, hypertension, HARDIK secondary to vasomotor nephropathy Time spent for discharge: 45 min Core Measure Documentation - Palliative Care Palliative Care/ Comfort Measures: Not Applicable - Core Measures Any of the following diagnoses?: none - Heart Failure Discharge Requirements EMILIANO/ARB for LVSD if EF <40%: Yes Beta timur at discharge: Yes Exam - Constitutional Vitals: Temp Pulse Resp BP Pulse Ox 98.5 F 70 20 156/80 97 05/10/21 08:05 05/10/21 08:05 05/10/21 08:05 05/10/21 08:05 05/10/21 08:05 General appearance: Present: no acute distress - EENT Eyes: Present: PERRL, EOM intact ENT: hearing intact, clear oral mucosa, poor dentition, edentulous - Neck Neck: Present: supple, normal ROM - Respiratory Respiratory effort: normal Respiratory: bilateral: CTA - Cardiovascular Rhythm: regular Heart Sounds: Present: S1 & S2 - Extremities Extremities: no ischemia, pulses intact, pulses symmetrical, normal temperature, normal color, Full ROM Peripheral Pulses: within normal limits - Abdominal General gastrointestinal: Present: soft, non-tender, non-distended, normal bowel sounds Male genitourinary: Present: deferred - Rectal Rectal Exam: deferred - Integumentary Integumentary: Present: clear, warm, dry - Musculoskeletal Musculoskeletal: strength equal bilaterally - Psychiatric Psychiatric: appropriate mood/affect, cooperative - Neurologic Neurologic: CNII-XII intact, moves all extremities - Allied Health Allied health notes reviewed: nursing Plan Activity: advance as tolerated Diet: low salt Additional Instructions: The patient is a 70-year-old male with past medical history of hypertension and depression who presented with bilateral ankle and foot swelling for approximately 1 to 2 weeks. The patient endorses "not feeling well". Patient was found to be hemodynamically stable on presentation; however, the patient had an HARDIK with a creatinine of 1.4. The patient was found to be negative for coronavirus. The patient was found to have an elevated BNP of 1206. A TTE was ordered and was unremarkable with an EF of 60-65%. Bilateral venous Dopplers were performed to evaluate for possible DVT, and it was unremarkable. The patient's creatinine has decreased to 1.2. Patient is currently medically ready for discharge. Patient expresses understanding. Care Plan Goals: Patient is medically cleared for discharge. Assessment: The patient is a 70-year-old male with past medical history of hypertension and depression who presented with bilateral ankle and foot swelling for approximately 1 to 2 weeks. The patient endorses "not feeling well". Patient was found to be hemodynamically stable on presentation; however, the patient had an HARDIK with a creatinine of 1.4. The patient was found to be negative for coronavirus. The patient was found to have an elevated BNP of 1206. A TTE was ordered and was unremarkable with an EF of 60-65%. Bilateral venous Dopplers were performed to evaluate for possible DVT, and it was unremarkable. The patient's creatinine has decreased to 1.2. Patient is currently medically ready for discharge. Patient expresses understanding. Follow up with: SILVERIO CEJA MD [Primary Care Provider] - 3-5 Days Prescriptions: carvediloL [Coreg] 3.125 mg PO BID #60 tablet lisinopriL [Zestril TAB] 5 mg PO BID #30 tablet
[2021-05-11] MEDS ORDERED: carvediloL 3.125 MG TAB PO SCH (07:43)
[2021-05-11] MEDS ORDERED: LISINOPRIL 5 MG TAB PO SCH (07:44)
[2021-05-11] MEDS: carvediloL 6.25 MG TAB PO SCH (10:15)
[2021-05-11] MEDS: HYDROcodone/ACETAMINOPHEN 5-325 MG TAB PO PRN ×2 (10:16→20:35)
[2021-05-11] MEDS: LISINOPRIL 20 MG TAB PO SCH (10:16)
[2021-05-11] MEDS: FUROSEMIDE 20 MG/2 ML INJ IV SCH (10:50)
[2021-05-12] MEDS: carvediloL 6.25 MG TAB PO SCH ×3 (00:11→21:34)
[2021-05-12] MEDS: LISINOPRIL 20 MG TAB PO SCH (05:36)
[2021-05-12] MEDS ORDERED: NIFEdipine XL 30 MG TAB PO SCH (07:39)
--- NOTE | 2021-05-12 13:19 | Electrocardiograph Report ---
[facility] Test Date: 2021-05-07 Test Time: 08:46:35 Pat Name: MOO ROCHA Department: Room: A472 Gender: M [employer] Equipment [employer]: CU[employer] : 1950 Requested By: WILLIAM VALDES Order Number: [id number] Reading MD: Nini Dee Measurements Intervals [place] Rate: 71 P: 68 ND: 167 QRS: 22 QRSD: 95 T: 17 QT: 408 QTc: 443 Interpretive Statements Sinus rhythm Ventricular premature complex Probable anterior infarct, age indeterminate No previous ECG available for comparison Electronically Signed On 05-12-2021 13:18:46 EST by Nini Dee
[2021-05-12] MEDS: VALSARTAN 160MG TAB PO SCH (16:22)
[2021-05-12] MEDS: FUROSEMIDE 20 MG/2 ML INJ IV SCH ×2 (16:22→22:31)
[2021-05-12] MEDS: NIFEdipine XL 60 MG TAB PO SCH (16:23)
[2021-05-12] MEDS: FUROSEMIDE 20 MG TAB PO SCH (20:45)
[2021-05-12] MEDS: HYDROcodone/ACETAMINOPHEN 5-325 MG TAB PO PRN (21:34)
[2021-05-13] MEDS: VALSARTAN 160MG TAB PO SCH (10:44)
[2021-05-13] MEDS: HYDROcodone/ACETAMINOPHEN 5-325 MG TAB PO PRN ×2 (10:44→22:30)
[2021-05-13] MEDS: NIFEdipine XL 60 MG TAB PO SCH (10:44)
[2021-05-13] MEDS: FUROSEMIDE 20 MG TAB PO SCH (10:44)
[2021-05-13] MEDS: carvediloL 6.25 MG TAB PO SCH ×2 (10:45→22:30)
--- NOTE | 2021-05-13 15:52 | Progress Note ---
Assessment and Plan Assessment and plan: #Acute on chronic diastolic heart failureresolved - Continue CHF exacerbation protocol: Telemetry, Strict I/O, monitor urine output every shift, daily weights, afterload reduction, low-sodium diet, and fluid restriction of approximately 1.5 mL/day - Supplemental oxygen: None - Cardiology consulted; appreciate recs - TTE (05/08/2021) reveals moderate concentric LVH. Grade 1 abnormal relaxation pattern. EF 60-65%. - Continue to monitor #Hypertension - home medications: None - current medications: Coreg 6.25 mg twice daily, valsartan 160 mg daily, nifedipine 60 mg daily, p.o. Lasix 40 mg daily - SBP goal <160 and DBP goal <90 while inpatient - continue to monitor #Debility Physical therapy evaluated; recommending SNF Case management made aware #Advanced care planning -Disease education conducted, care plan discussed, diagnoses discussed, prognosis discussed, and patient acknowledges understanding with care plan -Time: +30 min Disposition Plan: Pending SNF placement Total Time Spent with Patient (Minutes): 45 minutes History Interval history: No acute events overnight. Hospitalist Physical - Constitutional Vitals: Temp Pulse Resp BP Pulse Ox 98.0 F 57 L 16 119/58 100 05/13/21 07:46 05/13/21 07:46 05/13/21 07:46 05/13/21 07:46 05/13/21 08:27 General appearance: Present: no acute distress, disheveled - EENT Eyes: Present: PERRL, EOM intact ENT: hearing intact, poor dentition, edentulous - Neck Neck: Present: supple, normal ROM - Respiratory Respiratory effort: normal - Cardiovascular Rhythm: regular Heart Sounds: Present: S1 & S2 - Extremities Extremities: no ischemia, pulses intact, pulses symmetrical, No edema, normal temperature, normal color Peripheral Pulses: within normal limits - Abdominal General gastrointestinal: soft, non-tender, non-distended, normal bowel sounds - Integumentary Integumentary: Present: clear, warm, dry - Psychiatric Psychiatric: appropriate mood/affect, cooperative - Neurologic Neurologic: CNII-XII intact, moves all extremities - Allied Health Allied health notes reviewed: nursing HEART Score - HEART Score Troponin: Troponin T < 0.010 ng/mL (0.00-0.029) 05/07/21 07:10 Results - Labs CBC & Chem 7: 05/09/21 06:03 05/09/21 06:03 Labs: Laboratory Last Values WBC 5.7 K/mm3 (4.5-11.0) 05/09/21 06:03 RBC 3.95 M/mm3 (3.65-5.03) 05/09/21 06:03 Hgb 10.8 gm/dl (11.8-15.2) L 05/09/21 06:03 Hct 34.8 % (35.5-45.6) L 05/09/21 06:03 MCV 88 fl (84-94) 05/09/21 06:03 MCH 28 pg (28-32) 05/09/21 06:03 MCHC 31 % (32-34) L 05/09/21 06:03 RDW 16.2 % (13.2-15.2) H 05/09/21 06:03 Plt Count 316 K/mm3 (140-440) 05/09/21 06:03 Lymph % (Auto) 25.2 % (13.4-35.0) 05/09/21 06:03 [place] % (Auto) 15.8 % (0.0-7.3) H 05/09/21 06:03 Eos % (Auto) 1.0 % (0.0-4.3) 05/09/21 06:03 Baso % (Auto) 1.2 % (0.0-1.8) 05/09/21 06:03 Lymph # (Auto) 1.4 K/mm3 (1.2-5.4) 05/09/21 06:03 [place] # (Auto) 0.9 K/mm3 (0.0-0.8) H 05/09/21 06:03 Eos # (Auto) 0.1 K/mm3 (0.0-0.4) 05/09/21 06:03 Baso # (Auto) 0.1 K/mm3 (0.0-0.1) 05/09/21 06:03 Seg Neutrophils % 56.8 % (40.0-70.0) 05/09/21 06:03 Seg Neutrophils # 3.2 K/mm3 (1.8-7.7) 05/09/21 06:03 Sodium 143 mmol/L (137-145) 05/09/21 06:03 Potassium 4.5 mmol/L (3.6-5.0) 05/09/21 06:03 Chloride 104.2 mmol/L (98-107) 05/09/21 06:03 Carbon Dioxide 26 mmol/L (22-30) 05/09/21 06:03 Anion Gap 17 mmol/L 05/09/21 06:03 BUN 20 mg/dL (9-20) 05/09/21 06:03 Creatinine 1.2 mg/dL (0.8-1.3) 05/09/21 06:03 Estimated GFR > 60 ml/min 05/09/21 06:03 BUN/Creatinine Ratio 17 % 05/09/21 06:03 Glucose 94 mg/dL (75-100) 05/09/21 06:03 Calcium 8.7 mg/dL (8.4-10.2) 05/09/21 06:03 Total Bilirubin 0.50 mg/dL (0.1-1.2) 05/07/21 06:09 AST 29 units/L (5-40) 05/07/21 06:09 ALT 11 units/L (7-56) 05/07/21 06:09 Alkaline Phosphatase 93 units/L (35-129) 05/07/21 06:09 Troponin T < 0.010 ng/mL (0.00-0.029) 05/07/21 07:10 NT-Pro-B Natriuret Pep 1206 pg/mL (0-900) H 05/07/21 06:09 Total Protein 7.0 g/dL (6.3-8.2) 05/07/21 06:09 Albumin 3.8 g/dL (3.9-5) L 05/07/21 06:09 Albumin/Globulin Ratio 1.2 % 05/07/21 06:09 Coronavirus (PCR) Negative (Negative) 05/13/21 Unknown Paez/IV: Voiding Method Urinal Active Medications - Current Medications Current Medications: Generic Name Dose Route Start Last Admin Trade Name Freq PRN Reason Stop Dose Admin Acetaminophen 650 mg 05/07/21 09:48 05/12/21 16:34 Acetaminophen 325 Mg Tab PO 650 mg Q4H PRN Administration Pain MILD(1-3)/Fever >100.5/[place] Hydrocodone Bitart/Acetaminophen 2 each 05/07/21 09:48 05/13/21 10:44 Hydrocodone/Acetaminophen 5-325 Mg Tab PO 2 each Q6H PRN Administration Pain, Moderate (4-6) Carvedilol 6.25 mg 05/12/21 10:00 05/13/21 10:45 Carvedilol 6.25 Mg Tab PO 6.25 mg BID FREDI Administration Furosemide 20 mg 05/12/21 17:00 05/13/21 10:44 Furosemide 20 Mg Tab PO 20 mg QDAY FREDI Administration Morphine Sulfate 2 mg 05/07/21 09:48 Morphine 4 Mg/1 Ml Inj IV Q4H PRN Pain , Severe (7-10) Morphine Sulfate 4 mg 05/07/21 21:48 Morphine 4 Mg/1 Ml Inj IV Q4H PRN Pain , Severe (7-10) Nifedipine 60 mg 05/12/21 10:00 05/13/21 10:44 Nifedipine Xl 60 Mg Tab PO 60 mg QDAY FREDI Administration Ondansetron HCl 4 mg 05/07/21 09:52 Ondansetron 4 Mg/2 Ml Inj IV Q8H PRN Nausea And Vomiting Sodium Chloride 10 ml 05/07/21 10:00 05/13/21 15:27 Sodium Chloride 0.9% 10 Ml Flush Syringe IV Not Given BID FREDI Sodium Chloride 10 ml 05/07/21 09:48 Sodium Chloride 0.9% 10 Ml Flush Syringe IV PRN PRN LINE FLUSH Valsartan 160 mg 05/12/21 10:00 05/13/21 10:44 Valsartan 160mg Tab PO 160 mg DAILY FREDI Administration Nutrition/Malnutrition Assess - Dietary Evaluation Nutrition/Malnutrition Findings: Nutrition Notes Start: 05/12/21 12:15 Freq: Status: Active Protocol: Document 05/12/21 12:15 NOEL (Rec: 05/12/21 12:28 NOEL [id number]) Nutrition Notes Need for Assessment generated from: Low BMI Initial or Follow up Assessment Current Diagnosis Acute Kidney Injury, Hypertension,Heart Failure Current Diet Cardiac Diet (since L 05/07). Labs/Tests 05/12: WNL. Pertinent Medications 05/12: Nutritionally unremarkable. Height 6 ft 2 in Weight 63.4 kg [place] Body Weight (kg) 86.36 BMI 17.9 Intake Prior to Admission Good Weight change and time frame Pt states not having loss body weight [employer]. Weight Status Underweight Subjective/Other Information RD consult for Low BMI assessment. Pt's PO intake of meals has been Good (75-100%), according to ADL notes. Pt has missing teeth, but not difficulty chewing, according to Physical Assessment History notes. Pt ready to be discharged. Pt's Low BMI seems to correspond to a natural body composition, and not related to a sudden loss of body weight nor chronic malnutrition, since none were mentioned in the Physical Assessment History or the Progress notes. Percent of energy/protein needs met: Prescribed Cardiac Diet provides for energy/protein needs (2,230 Kcal/85 g) during LOS. Burn Absent Trauma Absent GI Symptoms None Food Allergy No Skin Integrity/Comment Clear, warm, dry. Current % PO Good (75-100%) Minimum of two criteria No Is patient on ventilator? No Is Patient Ambulatory and/or Out of Bed Yes REE-([facility]-ambulatory/OOB) [ [id number] [id number]] Calculation Used for Recommendations [facility] Additional Notes Protein: 1-1.2 g/Kg; 63-76 g/ day. Fluids: 1 ml/Kcal, or as per MD. Nutrition Intervention Revisit per MD consult or patient Sign Off request: Additional Comments Continue monitoring food tolerance, %PO intake of meals , and BM.
[2021-05-14] MEDS: HYDROcodone/ACETAMINOPHEN 5-325 MG TAB PO PRN ×2 (08:35→22:04)
[2021-05-14] MEDS: FUROSEMIDE 20 MG TAB PO SCH (10:33)
[2021-05-14] MEDS: VALSARTAN 160MG TAB PO SCH (10:33)
[2021-05-14] MEDS: carvediloL 6.25 MG TAB PO SCH ×2 (10:33→22:03)
[2021-05-14] MEDS: NIFEdipine XL 60 MG TAB PO SCH (10:34)
--- NOTE | 2021-05-14 13:51 | Progress Note ---
Assessment and Plan Assessment and plan: #Acute on chronic diastolic heart failureresolved - Continue CHF exacerbation protocol: Telemetry, Strict I/O, monitor urine output every shift, daily weights, afterload reduction, low-sodium diet, and fluid restriction of approximately 1.5 mL/day - Supplemental oxygen: None - Cardiology consulted; appreciate recs - TTE (05/08/2021) reveals moderate concentric LVH. Grade 1 abnormal relaxation pattern. EF 60-65%. - Continue to monitor #Hypertension - home medications: None - current medications: Coreg 6.25 mg twice daily, valsartan 160 mg daily, nifedipine 60 mg daily, p.o. Lasix 40 mg daily - SBP goal <160 and DBP goal <90 while inpatient - continue to monitor #Debility Physical therapy evaluated; recommending SNF Case management made aware #Advanced care planning -Disease education conducted, care plan discussed, diagnoses discussed, prognosis discussed, and patient acknowledges understanding with care plan -Time: +30 min Disposition Plan: Pending SNF placement Total Time Spent with Patient (Minutes): 30 minutes History Interval history: No acute events overnight. Hospitalist Physical - Constitutional Vitals: Temp Pulse Resp BP Pulse Ox 99.7 F H 57 L 20 134/75 98 05/14/21 11:57 05/14/21 11:57 05/14/21 11:57 05/14/21 11:57 05/14/21 11:57 General appearance: Present: no acute distress, disheveled - EENT Eyes: Present: PERRL, EOM intact ENT: hearing intact, clear oral mucosa, poor dentition, edentulous - Neck Neck: Present: supple, normal ROM - Respiratory Respiratory effort: normal Respiratory: bilateral: CTA - Cardiovascular Rhythm: regular Heart Sounds: Present: S1 & S2 - Extremities Extremities: no ischemia, pulses intact, pulses symmetrical, No edema, normal temperature, normal color Peripheral Pulses: within normal limits - Abdominal General gastrointestinal: soft, non-tender, non-distended, normal bowel sounds - Integumentary Integumentary: Present: clear, warm, dry - Psychiatric Psychiatric: appropriate mood/affect - Neurologic Neurologic: CNII-XII intact, moves all extremities - Allied Health Allied health notes reviewed: nursing HEART Score - HEART Score Troponin: Troponin T < 0.010 ng/mL (0.00-0.029) 05/07/21 07:10 Results - Labs CBC & Chem 7: 05/09/21 06:03 05/09/21 06:03 Labs: Laboratory Last Values WBC 5.7 K/mm3 (4.5-11.0) 05/09/21 06:03 RBC 3.95 M/mm3 (3.65-5.03) 05/09/21 06:03 Hgb 10.8 gm/dl (11.8-15.2) L 05/09/21 06:03 Hct 34.8 % (35.5-45.6) L 05/09/21 06:03 MCV 88 fl (84-94) 05/09/21 06:03 MCH 28 pg (28-32) 05/09/21 06:03 MCHC 31 % (32-34) L 05/09/21 06:03 RDW 16.2 % (13.2-15.2) H 05/09/21 06:03 Plt Count 316 K/mm3 (140-440) 05/09/21 06:03 Lymph % (Auto) 25.2 % (13.4-35.0) 05/09/21 06:03 [place] % (Auto) 15.8 % (0.0-7.3) H 05/09/21 06:03 Eos % (Auto) 1.0 % (0.0-4.3) 05/09/21 06:03 Baso % (Auto) 1.2 % (0.0-1.8) 05/09/21 06:03 Lymph # (Auto) 1.4 K/mm3 (1.2-5.4) 05/09/21 06:03 [place] # (Auto) 0.9 K/mm3 (0.0-0.8) H 05/09/21 06:03 Eos # (Auto) 0.1 K/mm3 (0.0-0.4) 05/09/21 06:03 Baso # (Auto) 0.1 K/mm3 (0.0-0.1) 05/09/21 06:03 Seg Neutrophils % 56.8 % (40.0-70.0) 05/09/21 06:03 Seg Neutrophils # 3.2 K/mm3 (1.8-7.7) 05/09/21 06:03 Sodium 143 mmol/L (137-145) 05/09/21 06:03 Potassium 4.5 mmol/L (3.6-5.0) 05/09/21 06:03 Chloride 104.2 mmol/L (98-107) 05/09/21 06:03 Carbon Dioxide 26 mmol/L (22-30) 05/09/21 06:03 Anion Gap 17 mmol/L 05/09/21 06:03 BUN 20 mg/dL (9-20) 05/09/21 06:03 Creatinine 1.2 mg/dL (0.8-1.3) 05/09/21 06:03 Estimated GFR > 60 ml/min 05/09/21 06:03 BUN/Creatinine Ratio 17 % 05/09/21 06:03 Glucose 94 mg/dL (75-100) 05/09/21 06:03 Calcium 8.7 mg/dL (8.4-10.2) 05/09/21 06:03 Total Bilirubin 0.50 mg/dL (0.1-1.2) 05/07/21 06:09 AST 29 units/L (5-40) 05/07/21 06:09 ALT 11 units/L (7-56) 05/07/21 06:09 Alkaline Phosphatase 93 units/L (35-129) 05/07/21 06:09 Troponin T < 0.010 ng/mL (0.00-0.029) 05/07/21 07:10 NT-Pro-B Natriuret Pep 1206 pg/mL (0-900) H 05/07/21 06:09 Total Protein 7.0 g/dL (6.3-8.2) 05/07/21 06:09 Albumin 3.8 g/dL (3.9-5) L 05/07/21 06:09 Albumin/Globulin Ratio 1.2 % 05/07/21 06:09 Coronavirus (PCR) Negative (Negative) 05/13/21 Unknown Paez/IV: Voiding Method Urinal Active Medications - Current Medications Current Medications: Generic Name Dose Route Start Last Admin Trade Name Freq PRN Reason Stop Dose Admin Acetaminophen 650 mg 05/07/21 09:48 05/12/21 16:34 Acetaminophen 325 Mg Tab PO 650 mg Q4H PRN Administration Pain MILD(1-3)/Fever >100.5/[place]IN Hydrocodone Bitart/Acetaminophen 2 each 05/07/21 09:48 05/14/21 08:35 Hydrocodone/Acetaminophen 5-325 Mg Tab PO 2 each Q6H PRN Administration Pain, Moderate (4-6) Carvedilol 6.25 mg 05/12/21 10:00 05/13/21 22:30 Carvedilol 6.25 Mg Tab PO 6.25 mg BID FREDI Administration Furosemide 20 mg 05/12/21 17:00 05/13/21 10:44 Furosemide 20 Mg Tab PO 20 mg QDAY FREDI Administration Morphine Sulfate 2 mg 05/07/21 09:48 Morphine 4 Mg/1 Ml Inj IV Q4H PRN Pain , Severe (7-10) Morphine Sulfate 4 mg 05/07/21 21:48 Morphine 4 Mg/1 Ml Inj IV Q4H PRN Pain , Severe (7-10) Nifedipine 60 mg 05/12/21 10:00 05/13/21 10:44 Nifedipine Xl 60 Mg Tab PO 60 mg QDAY FREDI Administration Ondansetron HCl 4 mg 05/07/21 09:52 Ondansetron 4 Mg/2 Ml Inj IV Q8H PRN Nausea And Vomiting Sodium Chloride 10 ml 05/07/21 10:00 05/13/21 22:32 Sodium Chloride 0.9% 10 Ml Flush Syringe IV 10 ml BID FREDI Administration Sodium Chloride 10 ml 05/07/21 09:48 Sodium Chloride 0.9% 10 Ml Flush Syringe IV PRN PRN LINE FLUSH Valsartan 160 mg 05/12/21 10:00 05/13/21 10:44 Valsartan 160mg Tab PO 160 mg DAILY FREDI Administration Nutrition/Malnutrition Assess - Dietary Evaluation Nutrition/Malnutrition Findings: Nutrition Notes Start: 05/12/21 12:15 Freq: Status: Active Protocol: Document 05/12/21 12:15 NOEL (Rec: 05/12/21 12:28 NOEL [id number]) Nutrition Notes Need for Assessment generated from: Low BMI Initial or Follow up Assessment Current Diagnosis Acute Kidney Injury, Hypertension,Heart Failure Current Diet Cardiac Diet (since L 05/07). Labs/Tests 05/12: WNL. Pertinent Medications 05/12: Nutritionally unremarkable. 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 Pt's PO intake of meals has been Good (75-100%), according to ADL notes. Pt has missing teeth, but not difficulty chewing, according to Physical Assessment History notes. Pt ready to be discharged. Pt's Low BMI seems to correspond to a natural body composition, and not related to a sudden loss of body weight nor chronic malnutrition, since none were mentioned in the Physical Assessment History or the Progress notes. Percent of energy/protein needs met: Prescribed Cardiac Diet provides for energy/protein needs (2,230 Kcal/85 g) during LOS. Burn Absent Trauma Absent GI Symptoms None Food Allergy No Skin Integrity/Comment Clear, warm, dry. Current % PO Good (75-100%) Minimum of two criteria No Is patient on ventilator? No Is Patient Ambulatory and/or Out of Bed Yes REE-([facility]-ambulatory/OOB) [ 1902.875 NUTR.[id number]] Calculation Used for Recommendations [facility] Additional Notes Protein: 1-1.2 g/Kg; 63-76 g/ day. Fluids: 1 ml/Kcal, or as per MD. Nutrition Intervention Revisit per MD consult or patient Sign Off request: Additional Comments Continue monitoring food tolerance, %PO intake of meals , and BM.
[2021-05-15] MEDS: HYDROcodone/ACETAMINOPHEN 5-325 MG TAB PO PRN ×2 (03:45→22:05)
[2021-05-15] MEDS: VALSARTAN 160MG TAB PO SCH (10:20)
[2021-05-15] MEDS: NIFEdipine XL 60 MG TAB PO SCH (10:20)
[2021-05-15] MEDS: carvediloL 6.25 MG TAB PO SCH ×2 (10:20→22:06)
[2021-05-15] MEDS: FUROSEMIDE 20 MG TAB PO SCH (10:20)
--- NOTE | 2021-05-15 13:35 | Progress Note ---
Assessment and Plan Assessment and plan: #Acute on chronic diastolic heart failureresolved - Continue CHF exacerbation protocol: Telemetry, Strict I/O, monitor urine output every shift, daily weights, afterload reduction, low-sodium diet, and fluid restriction of approximately 1.5 mL/day - Supplemental oxygen: None - Cardiology consulted; appreciate recs - TTE (05/08/2021) reveals moderate concentric LVH. Grade 1 abnormal relaxation pattern. EF 60-65%. - Continue to monitor #Hypertension - home medications: None - current medications: Coreg 6.25 mg twice daily, valsartan 160 mg daily, nifedipine 60 mg daily, p.o. Lasix 40 mg daily - SBP goal <160 and DBP goal <90 while inpatient - continue to monitor #Debility Physical therapy evaluated; recommending SNF Case management made aware #Advanced care planning -Disease education conducted, care plan discussed, diagnoses discussed, prognosis discussed, and patient acknowledges understanding with care plan -Time: +30 min Disposition Plan: Pending SNF placement Total Time Spent with Patient (Minutes): 30 min History Interval history: No acute events overnight. Hospitalist Physical - Constitutional Vitals: Temp Pulse Resp BP Pulse Ox 97.4 F L 69 18 155/85 96 05/15/21 08:36 05/15/21 08:36 05/15/21 08:36 05/15/21 08:36 05/15/21 08:36 General appearance: Present: no acute distress, disheveled - EENT Eyes: Present: PERRL, EOM intact ENT: hearing intact, clear oral mucosa, poor dentition - Neck Neck: Present: supple, normal ROM - Respiratory Respiratory effort: normal Respiratory: bilateral: CTA - Cardiovascular Rhythm: regular Heart Sounds: Present: S1 & S2 - Extremities Extremities: no ischemia, pulses intact, pulses symmetrical, No edema, normal temperature, normal color Peripheral Pulses: within normal limits - Abdominal General gastrointestinal: soft, non-tender, non-distended, normal bowel sounds - Integumentary Integumentary: Present: clear, warm, dry - Psychiatric Psychiatric: cooperative - Neurologic Neurologic: CNII-XII intact, moves all extremities - Allied Health Allied health notes reviewed: nursing HEART Score - HEART Score Troponin: Troponin T < 0.010 ng/mL (0.00-0.029) 05/07/21 07:10 Results - Labs CBC & Chem 7: 05/09/21 06:03 05/09/21 06:03 Labs: Laboratory Last Values WBC 5.7 K/mm3 (4.5-11.0) 05/09/21 06:03 RBC 3.95 M/mm3 (3.65-5.03) 05/09/21 06:03 Hgb 10.8 gm/dl (11.8-15.2) L 05/09/21 06:03 Hct 34.8 % (35.5-45.6) L 05/09/21 06:03 MCV 88 fl (84-94) 05/09/21 06:03 MCH 28 pg (28-32) 05/09/21 06:03 MCHC 31 % (32-34) L 05/09/21 06:03 RDW 16.2 % (13.2-15.2) H 05/09/21 06:03 Plt Count 316 K/mm3 (140-440) 05/09/21 06:03 Lymph % (Auto) 25.2 % (13.4-35.0) 05/09/21 06:03 [place] % (Auto) 15.8 % (0.0-7.3) H 05/09/21 06:03 Eos % (Auto) 1.0 % (0.0-4.3) 05/09/21 06:03 Baso % (Auto) 1.2 % (0.0-1.8) 05/09/21 06:03 Lymph # (Auto) 1.4 K/mm3 (1.2-5.4) 05/09/21 06:03 [place] # (Auto) 0.9 K/mm3 (0.0-0.8) H 05/09/21 06:03 Eos # (Auto) 0.1 K/mm3 (0.0-0.4) 05/09/21 06:03 Baso # (Auto) 0.1 K/mm3 (0.0-0.1) 05/09/21 06:03 Seg Neutrophils % 56.8 % (40.0-70.0) 05/09/21 06:03 Seg Neutrophils # 3.2 K/mm3 (1.8-7.7) 05/09/21 06:03 Sodium 143 mmol/L (137-145) 05/09/21 06:03 Potassium 4.5 mmol/L (3.6-5.0) 05/09/21 06:03 Chloride 104.2 mmol/L (98-107) 05/09/21 06:03 Carbon Dioxide 26 mmol/L (22-30) 05/09/21 06:03 Anion Gap 17 mmol/L 05/09/21 06:03 BUN 20 mg/dL (9-20) 05/09/21 06:03 Creatinine 1.2 mg/dL (0.8-1.3) 05/09/21 06:03 Estimated GFR > 60 ml/min 05/09/21 06:03 BUN/Creatinine Ratio 17 % 05/09/21 06:03 Glucose 94 mg/dL (75-100) 05/09/21 06:03 Calcium 8.7 mg/dL (8.4-10.2) 05/09/21 06:03 Total Bilirubin 0.50 mg/dL (0.1-1.2) 05/07/21 06:09 AST 29 units/L (5-40) 05/07/21 06:09 ALT 11 units/L (7-56) 05/07/21 06:09 Alkaline Phosphatase 93 units/L (35-129) 05/07/21 06:09 Troponin T < 0.010 ng/mL (0.00-0.029) 05/07/21 07:10 NT-Pro-B Natriuret Pep 1206 pg/mL (0-900) H 05/07/21 06:09 Total Protein 7.0 g/dL (6.3-8.2) 05/07/21 06:09 Albumin 3.8 g/dL (3.9-5) L 05/07/21 06:09 Albumin/Globulin Ratio 1.2 % 05/07/21 06:09 Coronavirus (PCR) Negative (Negative) 05/13/21 Unknown Paez/IV: Voiding Method Urinal Active Medications - Current Medications Current Medications: Generic Name Dose Route Start Last Admin Trade Name Freq PRN Reason Stop Dose Admin Acetaminophen 650 mg 05/07/21 09:48 05/12/21 16:34 Acetaminophen 325 Mg Tab PO 650 mg Q4H PRN Administration Pain MILD(1-3)/Fever >100.5/[place] Hydrocodone Bitart/Acetaminophen 2 each 05/07/21 09:48 05/15/21 03:45 Hydrocodone/Acetaminophen 5-325 Mg Tab PO 2 each Q6H PRN Administration Pain, Moderate (4-6) Carvedilol 6.25 mg 05/12/21 10:00 05/14/21 22:03 Carvedilol 6.25 Mg Tab PO 6.25 mg BID FREDI Administration Furosemide 20 mg 05/12/21 17:00 05/14/21 10:33 Furosemide 20 Mg Tab PO 20 mg QDAY FREDI Administration Morphine Sulfate 2 mg 05/07/21 09:48 Morphine 4 Mg/1 Ml Inj IV Q4H PRN Pain , Severe (7-10) Morphine Sulfate 4 mg 05/07/21 21:48 Morphine 4 Mg/1 Ml Inj IV Q4H PRN Pain , Severe (7-10) Nifedipine 60 mg 05/12/21 10:00 05/14/21 10:34 Nifedipine Xl 60 Mg Tab PO 60 mg QDAY FREDI Administration Ondansetron HCl 4 mg 05/07/21 09:52 Ondansetron 4 Mg/2 Ml Inj IV Q8H PRN Nausea And Vomiting Sodium Chloride 10 ml 05/07/21 10:00 05/14/21 22:03 Sodium Chloride 0.9% 10 Ml Flush Syringe IV 10 ml BID FREDI Administration Sodium Chloride 10 ml 05/07/21 09:48 Sodium Chloride 0.9% 10 Ml Flush Syringe IV PRN PRN LINE FLUSH Valsartan 160 mg 05/12/21 10:00 05/14/21 10:33 Valsartan 160mg Tab PO 160 mg DAILY FREDI Administration Nutrition/Malnutrition Assess - Dietary Evaluation Nutrition/Malnutrition Findings: Nutrition Notes Start: 05/12/21 12:15 Freq: Status: Active Protocol: Document 05/12/21 12:15 NOEL (Rec: 05/12/21 12:28 NOEL [id number]) Nutrition Notes Need for Assessment generated from: Low BMI Initial or Follow up Assessment Current Diagnosis Acute Kidney Injury, Hypertension,Heart Failure Current Diet Cardiac Diet (since L 05/07). Labs/Tests 05/12: WNL. Pertinent Medications 05/12: Nutritionally unremarkable. 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 Weight Status Underweight Subjective/Other Information RD consult for Low BMI assessment. Pt's PO intake of meals has been Good (75-100%), according to ADL notes. Pt has missing teeth, but not difficulty chewing, according to Physical Assessment History notes. Pt ready to be discharged. Pt's Low BMI seems to correspond to a natural body composition, and not related to a sudden loss of body weight nor chronic malnutrition, since none were mentioned in the Physical Assessment History or the Progress notes. Percent of energy/protein needs met: Prescribed Cardiac Diet provides for energy/protein needs (2,230 Kcal/85 g) during LOS. Burn Absent Trauma Absent GI Symptoms None Food Allergy No Skin Integrity/Comment Clear, warm, dry. Current % PO Good (75-100%) Minimum of two criteria No Is patient on ventilator? No Is Patient Ambulatory and/or Out of Bed Yes REE-([facility]-ambulatory/OOB) [ 1902.875 NUTR.MSJOOB] Calculation Used for Recommendations [facility] Additional Notes Protein: 1-1.2 g/Kg; 63-76 g/ day. Fluids: 1 ml/Kcal, or as per MD. Nutrition Intervention Revisit per MD consult or patient Sign Off request: Additional Comments Continue monitoring food tolerance, %PO intake of meals , and BM.
[2021-05-16] MEDS: HYDROcodone/ACETAMINOPHEN 5-325 MG TAB PO PRN (04:22)
[2021-05-16] MEDS: FUROSEMIDE 20 MG TAB PO SCH (10:10)
[2021-05-16] MEDS: VALSARTAN 160MG TAB PO SCH (10:10)
[2021-05-16] MEDS: carvediloL 6.25 MG TAB PO SCH (10:10)
[2021-05-16] MEDS: NIFEdipine XL 60 MG TAB PO SCH (10:10)
[2021-05-16 11:29] VITALS: BP 179/66
--- NOTE | 2021-05-16 11:55 | Event Note ---
Date: 05/16/21 Please refer to discharge summary on 05/10/2021.
== END 2021-05-16 18:40 | DRG 291 ==
LOC: ED 23:57 → 4A 05-07 21:48 → OBSVTOIN 05-13 12:23
PROVIDERS: ADMIT Hospitalist; ATTEND Student in an Organized Health Care Education/Training Program
DX: I13.0 Hypertensive heart and chronic kidney disease with heart failure and stage 1 through stage 4 chronic kidney disease, or unspecified chronic kidney disease (principal); N17.0 Acute kidney failure with tubular necrosis; I50.33 Acute on chronic diastolic (congestive) heart failure; L03.116 Cellulitis of left lower limb; L03.115 Cellulitis of right lower limb; N18.9 Chronic kidney disease, unspecified; Z20.822 Contact with and (suspected) exposure to COVID-19; F32.9 Major depressive disorder, single episode, unspecified; I87.8 Other specified disorders of veins; R53.81 Other malaise
CPT/HCPCS: 36415; 71046; 80048; 80053; 83880; 84484; 85025; 93005; 93010; 93306; 93970; G0378; J7502; C8929; J1940; J2405; U0003

== ENCOUNTER 2021-10-05 20:11 | Inpatient (IN) | payer MEDICARE ==
[2021-10-05] MEDS ORDERED: SODIUM CHLORIDE 0.9% 500 ML 500 ML IV ONE (21:30)
[2021-10-05 22:00] LABS: Basophils # (Auto) 0.1 K/mm3 (0.0-0.1); Basophils % (Auto) 0.5 % (0.0-1.8); Eosinophils # (Auto) 0.1 K/mm3 (0.0-0.4); Eosinophils % (Auto) 0.5 % (0.0-4.3); Hemoglobin 12.9 gm/dl (11.8-15.2); Lymphocytes # (Auto) 0.9 K/mm3 (1.2-5.4); Lymphocytes % (Auto) 7.6 % (13.4-35.0); Mean Corpuscular HGB Conc 33 % (32-34); Mean Corpuscular Volume 91 fl (84-94); Monocytes # (Auto) 0.9 K/mm3 (0.0-0.8); Monocytes % (Auto) 7.7 % (0.0-7.3); Red Blood Count 4.31 M/mm3 (3.65-5.03); Red Cell Distribution Width 15.3 % (13.2-15.2)
[2021-10-05 22:07] LABS: Platelet Count 221 K/mm3 (140-440)
[2021-10-05 22:12] LABS: INR 1.2 (0.87-1.13)
--- NOTE | 2021-10-05 22:39 | Cat Scan Report ---
CT HEAD WITHOUT CONTRAST INDICATION / CLINICAL INFORMATION: Altered Mental Status. Confused. No hemiplegia. TECHNIQUE: CT head was performed without administration of intravenous contrast. All CT scans at this location are performed using CT dose reduction for ALARA by means of automated exposure control. COMPARISON: None available. FINDINGS: CEREBRAL HEMISPHERES: Generalized atrophy and bilateral regions of periventricular white matter hypoa ttenuation compatible with microvascular ischemia are demonstrated. No midline shift. Basal cisterns patent. Lacunar infarctions are noted bilaterally within the basal ganglia as well as within the left centrum semiovale. Moderate hypoattenuation of the anterior right temporal lobe is demonstrated. No significant extra-axial dilatation of the right temporal horn. HEMORRHAGE: None. CEREBELLUM / BRAINSTEM: No significant abnormality. ORBITS: No significant abnormality. SOFT TISSUES: No significant abnormality. SKULL: No significant abnormality. PARANASAL SINUSES / MASTOID AIR CELLS: Normal as visualized. ADDITIONAL FINDINGS: IMPRESSION: 1. Moderately advanced central and cortical atrophy of the features of microvascular ischemic disease and bilateral lacunar infarctions within the basal ganglia and left centrum semiovale. 2. Area of hypoattenuation involving the right temporal lobe has minimal to no associated ex vacuo di latation of the right temporal horn. Subacute ischemia is not excluded. MRI recommended for further c haracterization. IMPORTANT FINDING: Possible subacute ischemia right temporal lobe. 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 Lemus Signer Name: Tim Zarate II, MD Signed: 10/05/2021 10:34 PM Workstation Name: [id number]
--- NOTE | 2021-10-05 22:46 | XRay Report ---
CHEST 1 VIEW 10/05/2021 9:02 PM INDICATION / CLINICAL INFORMATION: Altered Mental Status. COMPARISON: 05/07/2021 FINDINGS: SUPPORT DEVICES: None. HEART / MEDIASTINUM: No significant abnormality. LUNGS / PLEURA: No significant pulmonary or pleural abnormality. No pneumothorax. ADDITIONAL FINDINGS: No significant additional findings. IMPRESSION: 1. No acute findings. Signer Name: Rod Montoya DO Signed: 10/05/2021 10:42 PM Workstation Name: [id number]
--- NOTE | 2021-10-05 22:58 | Consultation ---
History of Present Illness - Reason for Consult Consult date: 10/05/21 - History of Present Illness [facility] Consult Note # Demographics Consult Type: General Neurology Patient Location: Emergency Room First Name: Reid Last Name: Joel Date of : 1950 Age: 71 Gender: Male Facility: [facility] Time of Initial Page (Eastern Time): 10/05/2021, 22:51 Time of Return Call (Eastern Time): 10/05/2021, 22:54 # HPI History: 71yo man who presents from correction with altered mentation. no focal weakness Last Known Normal: unknown Associated Symptoms: confusion # Data Head CT: subacute ischemic stroke right temporal lobe # Assessment Impression: Ischemic Stroke (Subacute) # Plan Thrombolytic/Intervention: NOT IV Thrombolysis or IA Intervention candidate Thrombolytic Exclusion (< 3 hour window): time of onset unclear Intraarterial Exclusion: unfavorable imaging/hypodensity Target Blood Pressure: SBP < 220 Labs: lipid panel Imaging: (urgency: STAT): CT Angiogram Head and CT Angiogram Neck AND call back with results if abnormal Imaging: (urgency: routine): MRI Brain without contrast Diagnostic Test: echo without bubble study Therapy/Evaluation: NPO until swallow evaluation PT/OT evaluation speech/swallow consultation Medication: aspirin 81 mg PLUS clopidogrel (Plavix) 75 mg for 21 days, then monotherapy DVT Prophylaxis: SCD chemical DVT prophylaxis Other: LDL < 70 If patient has any neurological deterioration please call me back immediately permissive hypertension telemetry monitoring I have discussed my recommendations with the referring provider Disposition: admit Medications and Allergies Allergies Allergy/AdvReac Type Severity Reaction Status Date / Time No Known Allergies Allergy Verified 05/09/21 13:32 Home Medications Medication Instructions Recorded Confirmed Last Taken Type Furosemide [Lasix TAB] 40 mg PO QDAY #30 tablet 05/10/21 Unknown Rx carvediloL [Coreg] 6.25 mg PO BID #60 tablet 05/11/21 Unknown Rx NIFEdipine [Nifedipine ER] 60 mg PO DAILY #30 tab 05/13/21 Unknown Rx Valsartan [Diovan] 160 mg PO QDAY #30 tablet 05/13/21 Unknown Rx Exam - Constitutional Vitals: Temp Pulse Resp BP Pulse Ox 98.9 F 50 L 10 L 133/68 90 10/05/21 21:14 10/05/21 22:31 10/05/21 22:31 10/05/21 22:15 10/05/21 22:45 Results - Labs CBC & Chem 7: 10/05/21 21:39 Labs: Abnormal lab results 10/05/21 10/05/21 Range/Units 21:39 21:39 WBC 11.3 H (4.5-11.0) K/mm3 RDW 15.3 H (13.2-15.2) % Lymph % (Auto) 7.6 L (13.4-35.0) % [place] % (Auto) 7.7 H (0.0-7.3) % Lymph # (Auto) 0.9 L (1.2-5.4) K/mm3 [place] # (Auto) 0.9 H (0.0-0.8) K/mm3 Seg Neutrophils % 83.7 H (40.0-70.0) % Seg Neutrophils # 9.5 H (1.8-7.7) K/mm3 PT 16.6 H (12.2-14.9) Sec. INR 1.20 H (0.87-1.13)
[2021-10-05 23:41] LABS: Albumin 4.9 g/dL (3.9-5); Calcium 10.1 mg/dL (8.4-10.2); Hemolysis Index 15
[2021-10-05 23:52] LABS: Alanine Aminotransferase < 5 units/L (7-56); BUN/Creatinine Ratio 12; Blood Urea Nitrogen 216 mg/dL (9-20)
[2021-10-06] MEDS ORDERED: SODIUM POLYSTYRENE 15 GM/60 ML ORAL LIQD PO ONE (01:17)
[2021-10-06] MEDS ORDERED: CALCIUM CHLORIDE 1,000 MG in SODIUM CHLORIDE 0.9% 100 ML IV ONE (01:17)
[2021-10-06] MEDS ORDERED: INSULIN REGULAR, HUMAN 100 UNITS/1 ML IV ONE (01:18)
[2021-10-06] MEDS ORDERED: DEXTROSE 50% IN WATER (25GM) 50 ML SYRINGE IV ONE (01:18)
[2021-10-06] MEDS ORDERED: ASPIRIN 81 MG TAB CHEW PO ONE (01:21)
--- NOTE | 2021-10-06 01:21 | Emergency Department Report ---
ED Altered Mental Status HPI - General Chief Complaint: Altered Mental Status Stated Complaint: CONFUSED Time Seen by Provider: 10/05/21 21:27 Source: EMS Mode of arrival: Stretcher Limitations: No Limitations - History of Present Illness Initial Comments: PT COMING FROM [facility] STAFF TOLD EMS PT IS CONFUSED "DIFFERENT THAN NORMAL SINCE YESTERDAY" EMS STATES STAFF WAS NOT HELPFUL IN GIVING REPORT, PT NOT ANSWERING DIRECT QUESTIONS TO EMS, Complaint: altered mental status, confusion -: unknown Severity: moderate Consistency of Symptoms: constant Associated Symptoms: denies: denies other symptoms, chest pain, cough, lloyd phoresis, fever/chills - Related Data Previous Rx's Medication Instructions Recorded Last Taken Type Furosemide [Lasix TAB] 40 mg PO QDAY #30 tablet 05/10/21 Unknown Rx carvediloL [Coreg] 6.25 mg PO BID #60 tablet 05/11/21 Unknown Rx NIFEdipine [Nifedipine ER] 60 mg PO DAILY #30 tab 05/13/21 Unknown Rx Valsartan [Diovan] 160 mg PO QDAY #30 tablet 05/13/21 Unknown Rx Allergies Allergy/AdvReac Type Severity Reaction Status Date / Time No Known Allergies Allergy Verified 05/09/21 13:32 ED Review of Systems ROS: Stated complaint: CONFUSED Other details as noted in HPI Constitutional: denies: chills, fever Eyes: denies: eye pain, eye discharge, vision change ENT: denies: ear pain, throat pain Respiratory: denies: cough, shortness of breath, wheezing Cardiovascular: denies: chest pain, palpitations Endocrine: no symptoms reported Gastrointestinal: denies: abdominal pain, nausea, diarrhea Genitourinary: denies: urgency, dysuria Musculoskeletal: denies: back pain, joint swelling, arthralgia Skin: denies: rash, lesions Neurological: denies: headache, weakness, paresthesias Psychiatric: denies: anxiety, depression Hematological/Lymphatic: denies: easy bleeding, easy bruising ED Past Medical Hx - Past Medical History Previous Medical History?: Yes Hx Hypertension: Yes Hx Congestive Heart Failure: Yes Hx Psychiatric Treatment: (depression) - Surgical History Past Surgical History?: No - Social History Smoking Status: Unknown if ever smoked - Medications Home Medications: Home Medications Medication Instructions Recorded Confirmed Last Taken Type Furosemide [Lasix TAB] 40 mg PO QDAY #30 tablet 05/10/21 Unknown Rx carvediloL [Coreg] 6.25 mg PO BID #60 tablet 05/11/21 Unknown Rx NIFEdipine [Nifedipine ER] 60 mg PO DAILY #30 tab 05/13/21 Unknown Rx Valsartan [Diovan] 160 mg PO QDAY #30 tablet 05/13/21 Unknown Rx ED Physical Exam - General Limitations: No Limitations General appearance: alert, other (confused) - Head Head exam: Present: atraumatic, normocephalic - Eye Eye exam: Present: normal appearance - ENT ENT exam: Present: mucous membranes moist - Neck Neck exam: Present: normal inspection - Respiratory Respiratory exam: Present: normal lung sounds bilaterally. Absent: respiratory distress - Cardiovascular Cardiovascular Exam: Present: regular rate, normal rhythm. Absent: systolic murmur, diastolic murmur, rubs, gallop - GI/Abdominal GI/Abdominal exam: Present: soft, normal bowel sounds - Rectal Rectal exam: Present: deferred - Extremities Exam Extremities exam: Present: normal inspection - Back Exam Back exam: Present: normal inspection - Neurological Exam Neurological exam: Present: other - Skin Skin exam: Present: warm, dry, intact, normal color. Absent: rash ED Course Vital Signs 10/05/21 10/05/21 10/05/21 21:14 21:39 21:45 Temperature 98.9 F Pulse Rate 56 L 52 L Respiratory 18 17 Rate Blood Pressure 132/69 141/67 O2 Sat by Pulse 100 90 99 Oximetry 10/05/21 10/05/21 10/05/21 22:01 22:15 22:31 Temperature Pulse Rate 51 L 51 L 50 L Respiratory 13 12 10 L Rate Blood Pressure 127/65 133/68 O2 Sat by Pulse 94 94 97 Oximetry 10/05/21 22:45 Temperature Pulse Rate Respiratory Rate Blood Pressure O2 Sat by Pulse 90 Oximetry - Lab Data Result diagrams: 10/05/21 21:39 10/05/21 22:41 Lab Results 10/05/21 10/05/21 10/05/21 Range/Units 21:39 21:39 21:39 WBC 11.3 H (4.5-11.0) K/mm3 RBC 4.31 (3.65-5.03) M/mm3 Hgb 12.9 (11.8-15.2) gm/dl Hct 39.0 (35.5-45.6) % MCV 91 (84-94) fl MCH 30 (28-32) pg MCHC 33 (32-34) % RDW 15.3 H (13.2-15.2) % Plt Count 221 (140-440) K/mm3 Lymph % (Auto) 7.6 L (13.4-35.0) % [place] % (Auto) 7.7 H (0.0-7.3) % Eos % (Auto) 0.5 (0.0-4.3) % Baso % (Auto) 0.5 (0.0-1.8) % Lymph # (Auto) 0.9 L (1.2-5.4) K/mm3 [place] # (Auto) 0.9 H (0.0-0.8) K/mm3 Eos # (Auto) 0.1 (0.0-0.4) K/mm3 Baso # (Auto) 0.1 (0.0-0.1) K/mm3 Seg Neutrophils % 83.7 H (40.0-70.0) % Seg Neutrophils # 9.5 H (1.8-7.7) K/mm3 PT 16.6 H (12.2-14.9) Sec. INR 1.20 H (0.87-1.13) Sodium (137-145) mmol/L Potassium (3.6-5.0) mmol/L Chloride (98-107) mmol/L Carbon Dioxide (22-30) mmol/L Anion Gap mmol/L BUN (9-20) mg/dL Creatinine (0.8-1.3) mg/dL Estimated GFR ml/min BUN/Creatinine Ratio % Glucose (75-100) mg/dL Calcium (8.4-10.2) mg/dL Total Bilirubin (0.1-1.2) mg/dL AST (5-40) units/L ALT (7-56) units/L Alkaline Phosphatase (35-129) units/L Ammonia (25-60) umol/L Total Protein (6.3-8.2) g/dL Albumin (3.9-5) g/dL Albumin/Globulin Ratio % Salicylates (2.8-20.0) mg/dL Plasma/Serum Alcohol < 0.01 (0-0.07) % 06/22/22 06/22/22 06/22/22 Range/Units 22:41 22:41 22:41 WBC (4.5-11.0) K/mm3 RBC (3.65-5.03) M/mm3 Hgb (11.8-15.2) gm/dl Hct (35.5-45.6) % MCV (84-94) fl MCH (28-32) pg MCHC (32-34) % RDW (13.2-15.2) % Plt Count (140-440) K/mm3 Lymph % (Auto) (13.4-35.0) % [place] % (Auto) (0.0-7.3) % Eos % (Auto) (0.0-4.3) % Baso % (Auto) (0.0-1.8) % Lymph # (Auto) (1.2-5.4) K/mm3 [place] # (Auto) (0.0-0.8) K/mm3 Eos # (Auto) (0.0-0.4) K/mm3 Baso # (Auto) (0.0-0.1) K/mm3 Seg Neutrophils % (40.0-70.0) % Seg Neutrophils # (1.8-7.7) K/mm3 PT (12.2-14.9) Sec. INR (0.87-1.13) Sodium 142 (137-145) mmol/L Potassium 7.7 H* (3.6-5.0) mmol/L Chloride 98.8 (98-107) mmol/L Carbon Dioxide 22 (22-30) mmol/L Anion Gap 29 mmol/L BUN 216 H (9-20) mg/dL Creatinine 18.1 H (0.8-1.3) mg/dL Estimated GFR 3 ml/min BUN/Creatinine Ratio 12 % Glucose 117 H (75-100) mg/dL Calcium 10.1 (8.4-10.2) mg/dL Total Bilirubin 0.50 (0.1-1.2) mg/dL AST 11 (5-40) units/L ALT < 5 L (7-56) units/L Alkaline Phosphatase 64 (35-129) units/L Ammonia 14.0 L (25-60) umol/L Total Protein 8.3 H (6.3-8.2) g/dL Albumin 4.9 (3.9-5) g/dL Albumin/Globulin Ratio 1.4 % Salicylates < 0.3 L (2.8-20.0) mg/dL Plasma/Serum Alcohol (0-0.07) % - Radiology Data Radiology results: report reviewed, image reviewed - Medical Decision Making ct scan shwqoed possible subacute stroke, not condidate for TPA or LVO, spoke with dr joaquin , will admit for stroke work up , hyperkalemia noted meds given , HARDIK noted Critical care attestation.: If time is entered above; I have spent that time in minutes in the direct care of this critically ill patient, excluding procedure time. ED Disposition Clinical Impression: Altered mental status, CVA (cerebral vascular accident), HARDIK (acute kidney injury), Hyperkalemia Disposition: 30 STILL A PATIENT Is pt being admited?: Yes Does the pt Need Aspirin: Yes Condition: Stable Referrals: PRIMARY CARE, [Primary Care Provider] - 3-5 Days
[2021-10-06] MEDS ORDERED: DEXTROSE 50% IN WATER (25GM) 50 ML SYRINGE IV PRN (01:42)
[2021-10-06] MEDS ORDERED: METOCLOPRAMIDE 10 MG TAB PO PRN (01:42)
[2021-10-06] MEDS ORDERED: ACETAMINOPHEN 325 MG TAB PO PRN ×2 (01:42)
[2021-10-06] MEDS ORDERED: PROMETHAZINE 25 MG RECT SUPP PR PRN (01:42)
[2021-10-06] MEDS ORDERED: ONDANSETRON 4 MG/2 ML INJ IV PRN ×2 (01:42)
[2021-10-06] MEDS ORDERED: MORPHINE 2 MG/1 ML INJ IV PRN ×2 (01:42)
[2021-10-06] MEDS ORDERED: MAGNESIUM HYDROXIDE (MOM) ORAL LIQD UDC PO PRN ×2 (01:42)
[2021-10-06] MEDS ORDERED: MORPHINE 4 MG/1 ML INJ IV PRN ×2 (01:42)
[2021-10-06] MEDS ORDERED: METOCLOPRAMIDE 10 MG/10 ML ORAL LIQD PO PRN (01:59)
--- NOTE | 2021-10-06 02:28 | History and Physical Report ---
History of Present Illness Date of examination: 10/06/21 Date of admission: 10/06/21 01:43 Chief complaint: Altered mental status History of present illness: 71-year-old male resident of [facility] with known history of hypertension sent to the emergency room for evaluation of changes in mental status since yesterday. Patient was said not to be his normal self over the past 24 hours. Patient unable to give any good history at this time most of the information was obtained from the ER staff. Work-up in the emergency room today, lab was significant for leukocytosis of 11.3, potassium of 7.7, BUN to 16 and creatinine of 18.1. EKG shows some peaked T waves. CT scan of the head consistent with features of microvascular ischemia bilateral lacunar infarcts within the basal ganglia and left central semiovale. Area of hypoattenuation involving the right temporal lobe. Subacute ischemia is not excluded. MRI recommended for further evaluation. Teleneurology consulted by the ER physician and recommendation was to have CVA work-up. Chemist Physical was also consulted regarding lab findings and EKG findings and admitted dialysis was recommended. [employer] was also consulted for prompt evaluation as a possible vascular access for dialysis. Past History Past Medical History: heart failure, hypertension, other (Depression) Past Surgical History: No surgical history Social history: no significant social history Family history: no significant family history Medications and Allergies Allergies Allergy/AdvReac Type Severity Reaction Status Date / Time No Known Allergies Allergy Verified 05/09/21 13:32 Home Medications Medication Instructions Recorded Confirmed Last Taken Type Furosemide [Lasix TAB] 40 mg PO QDAY #30 tablet 05/10/21 Unknown Rx carvediloL [Coreg] 6.25 mg PO BID #60 tablet 05/11/21 Unknown Rx NIFEdipine [Nifedipine ER] 60 mg PO DAILY #30 tab 05/13/21 Unknown Rx Valsartan [Diovan] 160 mg PO QDAY #30 tablet 05/13/21 Unknown Rx Active Meds: Active Medications Acetaminophen (Acetaminophen 325 Mg Tab) 650 mg PO Q4H PRN PRN Reason: Pain MILD(1-3)/Fever >100.5/MARROQUIN Aspirin (Aspirin 325 Mg Tab) 325 mg PO QDAY FREDI Bisacodyl (Bisacodyl 10 Mg Rect Supp) 10 mg [place] QDAY PRN PRN Reason: Constipation Dextrose (Dextrose 50% In Water (25gm) 50 Ml Syringe) 50 ml IV Q30MIN PRN; Protocol PRN Reason: Hypoglycemia Magnesium Hydroxide (Magnesium Hydroxide (Mom) Oral Liqd Udc) 30 ml PO Q4H PRN PRN Reason: Constipation Metoclopramide HCl (Metoclopramide 10 Mg/10 Ml Oral Liqd) 2.5 mg PO Q6H PRN PRN Reason: Nausea And Vomiting Morphine Sulfate (Morphine 2 Mg/1 Ml Inj) 2 mg IV Q4H PRN PRN Reason: Pain, Moderate (4-6) Morphine Sulfate (Morphine 4 Mg/1 Ml Inj) 4 mg IV Q4H PRN PRN Reason: Pain , Severe (7-10) Ondansetron HCl (Ondansetron 4 Mg/2 Ml Inj) 4 mg IV Q8H PRN PRN Reason: Nausea And Vomiting Promethazine HCl (Promethazine 25 Mg Rect Supp) 25 mg LA Q6H PRN PRN Reason: Nausea And Vomiting Sodium Chloride (Sodium Chloride 0.9% 10 Ml Flush Syringe) 10 ml IV BID FREDI Sodium Chloride (Sodium Chloride 0.9% 10 Ml Flush Syringe) 10 ml IV PRN PRN PRN Reason: LINE FLUSH Review of Systems ROS unobtainable: due to mental status Exam - Constitutional Vitals: Temp Pulse Resp BP Pulse Ox 98.9 F 50 L 10 L 133/68 90 10/05/21 21:14 10/05/21 22:31 10/05/21 22:31 10/05/21 22:15 10/05/21 22:45 General appearance: Present: no acute distress, well-nourished - EENT Eyes: Present: PERRL, EOM intact. Absent: scleral icterus ENT: hearing intact, clear oral mucosa, dentition normal - Neck Neck: Present: supple, normal ROM - Respiratory Respiratory effort: normal Respiratory: bilateral: CTA - Cardiovascular Rhythm: regular Heart Sounds: Present: S1 & S2. Absent: gallop, systolic murmur, diastolic murmur, rub, click - Extremities Extremities: no ischemia, No edema, Full ROM Peripheral Pulses: within normal limits - Abdominal General gastrointestinal: Present: soft, non-tender, non-distended, normal bowel sounds. Absent: mass - Integumentary Integumentary: Present: clear, warm, dry, normal turgor. Absent: rash - Musculoskeletal Musculoskeletal: strength equal bilaterally - Psychiatric Psychiatric: cooperative - Neurologic Neurologic: CNII-XII intact, moves all extremities, other (Confused) Results - Labs CBC & Chem 7: 10/05/21 21:39 10/06/21 04:21 Labs: Abnormal lab results 10/05/21 10/05/21 10/05/21 Range/Units 21:39 21:39 22:41 WBC 11.3 H (4.5-11.0) K/mm3 RDW 15.3 H (13.2-15.2) % Lymph % (Auto) 7.6 L (13.4-35.0) % [place] % (Auto) 7.7 H (0.0-7.3) % Lymph # (Auto) 0.9 L (1.2-5.4) K/mm3 [place] # (Auto) 0.9 H (0.0-0.8) K/mm3 Seg Neutrophils % 83.7 H (40.0-70.0) % Seg Neutrophils # 9.5 H (1.8-7.7) K/mm3 PT 16.6 H (12.2-14.9) Sec. INR 1.20 H (0.87-1.13) Potassium (3.6-5.0) mmol/L BUN (9-20) mg/dL Creatinine (0.8-1.3) mg/dL Glucose (75-100) mg/dL ALT (7-56) units/L Ammonia (25-60) umol/L Total Protein (6.3-8.2) g/dL Salicylates < 0.3 L (2.8-20.0) mg/dL 10/05/21 10/05/21 Range/Units 22:41 22:41 WBC (4.5-11.0) K/mm3 RDW (13.2-15.2) % Lymph % (Auto) (13.4-35.0) % [place] % (Auto) (0.0-7.3) % Lymph # (Auto) (1.2-5.4) K/mm3 [place] # (Auto) (0.0-0.8) K/mm3 Seg Neutrophils % (40.0-70.0) % Seg Neutrophils # (1.8-7.7) K/mm3 PT (12.2-14.9) Sec. INR (0.87-1.13) Potassium 7.7 H* (3.6-5.0) mmol/L BUN 216 H (9-20) mg/dL Creatinine 18.1 H (0.8-1.3) mg/dL Glucose 117 H (75-100) mg/dL ALT < 5 L (7-56) units/L Ammonia 14.0 L (25-60) umol/L Total Protein 8.3 H (6.3-8.2) g/dL Salicylates (2.8-20.0) mg/dL Assessment and Plan Assessment: 1.Altered mental Status 2.CVA 3. Hypertension 4. Acute renal failure 5. Hypokalemia Plan: 1. Patient admitted into the intensive care unit 2. Immediate dialysis recommended by dye mixer 3. Will monitor chemistry. 4. Consult placed to neurology for further evaluation and recommendations 5. We will resume routine home medications once reconciled. DVT Prophylaxis: Subcutaneous heparin Code Status: Full Code.
[2021-10-06] MEDS ORDERED: SODIUM CHLORIDE 0.9% 100 ML IV PRN (02:34)
--- NOTE | 2021-10-06 02:42 | Event Note ---
Date: 10/06/[address] Lemus. Patient admitted with CVA . Patient has HARDIK with a BUN/Cr of 216/18 and K of 7.7 Patient needs urgent dialysis . ICU team to be contacted from ER for vascath placement. Stat dialysis orders written . grinder dresser dialysis nurse to be notified . Medical treatment for hyperkalemia in the interim.
[2021-10-06 02:48] LABS: Bilirubin,Urine NEG (Negative); Blood,Urine SM (Negative); Color,Urine Yellow (Yellow); Protein,Urine <15 mg/dL mg/dL (Negative); Urobilinogen,Urine < 2.0 mg/dL (<2.0)
[2021-10-06 02:57] LABS: Bacteria,Urine 1+ /HPF (Negative); Hyaline Casts,Urine 14 /LPF; Mucus,Urine FEW /HPF
--- NOTE | 2021-10-06 03:21 | Event Note ---
Date: 10/06/21 - transfer to ICU - repeat [id number]@[id number] - Joe @ [phone]
[2021-10-06 03:28] LABS: Amphetamine Screen,Urine PRESUMPTIVE NEGATIVE; Benzodiazepines Screen,Urine PRESUMPTIVE NEGATIVE; Cannabinoid Screen,Urine PRESUMPTIVE NEGATIVE; Cocaine Screen,Urine PRESUMPTIVE NEGATIVE; Methadone Screen,Urine PRESUMPTIVE NEGATIVE; Opiate Screen,Urine PRESUMPTIVE NEGATIVE
[2021-10-06] MEDS ORDERED: LIDOCAINE (1%) 10 MG/1 ML VIAL 20 ML MDV ONE (06:06)
--- NOTE | 2021-10-06 06:28 | Consultation ---
History of Present Illness Consult date: 10/06/21 Requesting physician: THO OAKLEY Reason for consult: other (Severe Hyperkalemia; HARDIK) History of present illness: PULMONARY/CCM CONSULT NOTE (Full dictation # [id number]) Please see dictated notes for full details Past History Past Medical History: heart failure, hypertension, other (Depression) Past Surgical History: No surgical history Social history: no significant social history Family history: no significant family history Medications and Allergies Allergies Allergy/AdvReac Type Severity Reaction Status Date / Time No Known Allergies Allergy Verified 05/09/21 13:32 Home Medications Medication Instructions Recorded Confirmed Last Taken Type Furosemide [Lasix TAB] 40 mg PO QDAY #30 tablet 05/10/21 Unknown Rx carvediloL [Coreg] 6.25 mg PO BID #60 tablet 05/11/21 Unknown Rx NIFEdipine [Nifedipine ER] 60 mg PO DAILY #30 tab 05/13/21 Unknown Rx Valsartan [Diovan] 160 mg PO QDAY #30 tablet 05/13/21 Unknown Rx Active Meds: Active Medications Acetaminophen (Acetaminophen 325 Mg Tab) 650 mg PO Q4H PRN PRN Reason: Pain MILD(1-3)/Fever >100.5/MARROQUIN Aspirin (Aspirin 325 Mg Tab) 325 mg PO QDAY FREDI Bisacodyl (Bisacodyl 10 Mg Rect Supp) 10 mg [place] QDAY PRN PRN Reason: Constipation Dextrose (Dextrose 50% In Water (25gm) 50 Ml Syringe) 50 ml IV Q30MIN PRN; Protocol PRN Reason: Hypoglycemia Sodium Chloride (Nacl 0.9%) 100 mls @ 999 mls/hr IV DESHAWN PRN PRN Reason: Hypotension Magnesium Hydroxide (Magnesium Hydroxide (Mom) Oral Liqd Udc) 30 ml PO Q4H PRN PRN Reason: Constipation Metoclopramide HCl (Metoclopramide 10 Mg/10 Ml Oral Liqd) 2.5 mg PO Q6H PRN PRN Reason: Nausea And Vomiting Morphine Sulfate (Morphine 2 Mg/1 Ml Inj) 2 mg IV Q4H PRN PRN Reason: Pain, Moderate (4-6) Morphine Sulfate (Morphine 4 Mg/1 Ml Inj) 4 mg IV Q4H PRN PRN Reason: Pain , Severe (7-10) Ondansetron HCl (Ondansetron 4 Mg/2 Ml Inj) 4 mg IV Q8H PRN PRN Reason: Nausea And Vomiting Promethazine HCl (Promethazine 25 Mg Rect Supp) 25 mg [place] Q6H PRN PRN Reason: Nausea And Vomiting Sodium Chloride (Sodium Chloride 0.9% 10 Ml Flush Syringe) 10 ml IV BID FREDI Sodium Chloride (Sodium Chloride 0.9% 10 Ml Flush Syringe) 10 ml IV PRN PRN PRN Reason: LINE FLUSH Physical Examination Vital signs: Vital Signs Temp Pulse Resp BP Pulse Ox 98.9 F 56 L 18 132/69 100 10/05/21 21:14 10/05/21 21:14 10/05/21 21:14 10/05/21 21:14 10/05/21 21:14 Results - Laboratory Findings CBC and BMP: 10/05/21 21:39 10/06/21 04:21 PT/INR, D-dimer PT 16.6 Sec. (12.2-14.9) H 10/05/21 21:39 INR 1.20 (0.87-1.13) H 10/05/21 21:39 Abnormal lab findings: Abnormal Labs 10/05/21 10/05/21 10/05/21 21:39 21:39 22:41 WBC 11.3 H RDW 15.3 H Lymph % (Auto) 7.6 L [place] % (Auto) 7.7 H Lymph # (Auto) 0.9 L [place] # (Auto) 0.9 H Seg Neutrophils % 83.7 H Seg Neutrophils # 9.5 H PT 16.6 H INR 1.20 H Potassium Carbon Dioxide BUN Creatinine Glucose Calcium ALT Ammonia Total Protein Salicylates < 0.3 L 10/05/21 10/05/21 10/06/21 22:41 22:41 04:21 WBC RDW Lymph % (Auto) [place] % (Auto) Lymph # (Auto) [place] # (Auto) Seg Neutrophils % Seg Neutrophils # PT INR Potassium 7.7 H* 6.1 H* D Carbon Dioxide 19 L BUN 216 H 224 H Creatinine 18.1 H 19.7 H Glucose 117 H 64 L Calcium 11.0 H ALT < 5 L Ammonia 14.0 L Total Protein 8.3 H Salicylates
--- NOTE | 2021-10-06 06:44 | Procedure Note ---
Date of procedure: 10/06/21 Pre-op diagnosis: Hyperkalemia Post-op diagnosis: same Procedure: USS GUIDED RIJ TRIALYSIS VASCULAR CATHETER PLACEMENT (Full dictation # [id number]) Please see dictated notes for full details
--- NOTE | 2021-10-06 07:07 | XRay Report ---
CHEST 1 VIEW INDICATION / CLINICAL INFORMATION: Vas-cath placement, confirmation.. COMPARISON: Chest x-ray 10/05/2021 FINDINGS: SUPPORT DEVICES: Right IJ central venous catheter terminates within the superior vena cava. HEART / MEDIASTINUM: Heart size is within normal limits. Mediastinal contour demonstrates no signific ant abnormality. LUNGS / PLEURA: No significant pulmonary abnormality. BONES: Stable appearance of remote posterolateral left rib fractures. ADDITIONAL FINDINGS: No significant additional findings. IMPRESSION: 1. Interval placement right IJ central venous catheter tip within the superior vena cava. 2. Stable chest no superimposed acute process. Signer Name: Tim Zarate II, MD Signed: 10/06/2021 7:03 AM Workstation Name: [id number]
--- NOTE | 2021-10-06 07:25 | Operative Report ---
DATE OF SURGERY: 10/06/2021 PULMONARY PROCEDURE NOTE PROCEDURE: Right IJ vascular catheter placement. INDICATIONS: Acute kidney injury with severe hyperkalemia with a potassium of 7.7 and a creatinine of 18.1, BUN of 220. CONSENT: The sister was notified. The patient was also notified, but this is an emergent procedure, especially considering the acute encephalopathy in the patient. COMPLICATIONS: No immediate procedural complications. DESCRIPTION OF PROCEDURE: After consent, the area of the right upper anterior triangle of the neck was sterilely prepped and draped, strict sterile technique including hat, sterile gowns, sterile gloves, mask were used. Full barrier protection was also provided. Generous local anesthetic agent was used. This was an ultrasound-guided placement. The right IJ that is the right internal jugular vein was viewed with the ultrasound probe. He had a good vessel. It was easily collapsible. The patient, however, appeared to also be dry as there was not significant filling of the right IJ with the patient placed in the Trendelenburg position. The provided central venous access needle under ultrasound guidance was used to enter the right internal jugular vein. Good venous looking blood return was obtained. Again, it was a little difficult to keep the needle in the lumen of the vessel due to his hypovolemia, I would say hypovolemic state or dehydrated state. I was able to hold it in and the wire was passed threaded through the needle and catheter was then advanced over the wire after dilatation with 2 dilators provided. Blood loss was minimal. A good looking venous blood return was noticed. The catheter lumens were flushed. Catheter was sutured in place. A post-procedure chest x-ray is pending. No immediate procedural complications. TID: [id number] RECEIPT: [id number] CLAUDE/DOMINIC
--- NOTE | 2021-10-06 07:49 | Consultation ---
DATE OF CONSULTATION: 10/06/2021 PULMONARY CRITICAL CARE CONSULTATION NOTE CONSULTING PHYSICIAN: Dr. Herman as well as Dr. Rodgers of the Emergency Room. REASON FOR CONSULTATION: Severe hyperkalemia, acute kidney injury, need for emergent hemodialysis and vascular access. CHIEF COMPLAINT AND HISTORY OF PRESENT ILLNESS: The patient is a now 71-year-old male, as far as I can tell past medical history significant for a diagnosis of chronic kidney disease as well as hypertension, resident of a jail in the area, brought in by [facility] for altered mental status and confusion. They have described a change that had occurred over 24-48 hours. They gave no more history. In the Emergency Room, he was found to be indeed confused, moaning intermittently, alert and oriented only x1. Evaluation in the Emergency Room revealed severe hyperkalemia with a potassium of 7.7 as well as an acute kidney injury with a serum BUN of 216 and a creatinine of 18.1. Nephrology consultation was placed and emergent dialysis was recommended and we are asked to assist with management. When I stopped by to see him, he was resting in bed. He was on 2 liters nasal cannula, breathing without significant distress. He seemed to nod his head no when asked if he was in pain. I do not have any history of vomiting or overt aspiration. The patient's tobacco use/abuse history is unknown. This really is as much of the history of presentation as I have. PAST MEDICAL HISTORY: Chronic kidney disease, hypertension. PAST SURGICAL HISTORY: Unknown. MEDICATIONS: He was on at the time I stopped by to see him, according to the medication physician record included the following: Tylenol 650 mg p.o. q. 4 hours p.r.n. mild pain or fevers, aspirin 325 mg p.o. daily, bisacodyl 10 mg per rectum daily, Reglan 2.5 mg p.o. q. 6 hours p.r.n. nausea and vomiting, morphine sulfate 2 mg IV q. 4 hours p.r.n. moderate pain and 4 mg IV q. 4 hours p.r.n. severe pain, Zofran 4 mg IV q. 8 hours p.r.n. nausea and vomiting. ALLERGIES: No known drug allergies. DIET: Thin gentleman, cachectic in some ways. Acute weight loss or gain history is unknown. FAMILY AND SOCIAL HISTORY: [facility] resident. He has a sister in the community. Alcohol, tobacco or illicit drug use or abuse history is unknown. FAMILY HISTORY: Otherwise unknown. REVIEW OF SYSTEMS: Unobtainable secondary to the patient's medical and mental condition. Since he has been here, no gross hematochezia or melena, no gross hematuria, no hematemesis, no hemoptysis, no witnessed seizures. No palpitations. Complete 13-system review of system was obtained as best as I could. Pertinent positives and/or negatives as in body of history above, otherwise noncontributory. PHYSICAL EXAMINATION: VITAL SIGNS: At presentation in the Emergency Room, he was afebrile, temperature was 98.9 degrees Fahrenheit with a pulse of 56, respiratory rate of 18, blood pressure 132/69, O2 sats were 100% at the time I saw him on 2 liters nasal cannula. GENERAL: Again, he is an elderly, chronically ill looking male. Normocephalic, atraumatic. Resting in bed with normal respiratory effort at rest, but moaning intermittently. HEAD, EYES, EARS, NOSE AND THROAT: Anicteric. No conjunctival erythema. Oropharynx was dry. NECK: No gross jugular venous distention, no thyromegaly. He had bilateral temporal wasting. Grossly, there were no palpable lymph nodes in the supraclavicular or submandibular lymph node chains. LUNGS: Auscultation of both lung coyne, clear lungs, good bilateral air movement. No wheezing. HEART: Sounds 1 and 2 are heard. There were regular rate and rhythm at the time of my evaluation without overt rubs or murmurs. ABDOMEN: Soft, flat, bowel sounds are positive, nontender. No palpable hepatosplenomegaly. EXTREMITIES: Without overt digital clubbing or cyanosis. No pedal edema. Pedal pulses are 2+ bilaterally. NEUROLOGIC: Pupils were equal, round, about 4 mm, reactive to light. Extraocular muscle movements appeared intact. He had spontaneous movements to all his extremities. SKIN: Poor turgor in the areas I examined without overt cellulitis or rash. Please see the wound care nurses' notes for full description of his skin. PSYCHIATRIC: Mood was normal. Affect was appropriate. He did not have intact judgment and insight. LABORATORY DATA: From my review are as follows: Admission white cell count 11,300, hemoglobin 12.9, hematocrit 39.0, platelet count 221. INR 1.20. Serum sodium was 142, potassium was 7.7, chloride was 99, bicarbonate 22, BUN 216, creatinine 18.1, glucose was 117. Ammonia was within normal limits. Liver function tests otherwise within normal limits. Urinalysis was negative for nitrites and leukocyte esterase, small blood. Aspirin, Tylenol levels within expected limits. Urine drug screen was presumptive negative. No microbiology studies for my review. A chest x-ray was done. I have reviewed the x-ray as well as the radiologist's interpretation. There are clear lungs really. No gross cardiomegaly, no gross bony fractures, no acute findings. A CT scan was done, it was read as showing moderately advanced central and cortical atrophy and features of microvascular ischemic disease and bilateral lacunar infarcts within the basal ganglia, also areas of hypoattenuation that could be consistent with a subacute ischemia. ASSESSMENT: 1. Acute toxic metabolic encephalopathy. 2. Acute kidney injury. Serum creatinine was normal in April of this year.. 3. Severe hyperkalemia. 4. History of hypertension. 5. History of a cardiomyopathy, reported congestive heart failure. 6. Mild leukocytosis as presentation. PLAN: Vas-Cath has been placed. Dialysis will be done once written by the flight communications operator. We will continue supplemental oxygen to keep sats greater than or equal to about 90%. I should mention he did receive hyperkalemia cocktail at presentation. He received calcium. He received sodium bicarbonate. He received glucose and insulin I am told. His repeat potassium has just come back at 6.1. No major dysrhythmias. His initial EKG did show some peaked T waves. We will surveil those. Aspiration precautions will be maintained. I do feel he will benefit from gentle hydration. Actually I will go with D5W with a 75 mEq sodium bicarbonate per liter, run it just at 75 mL per hour for 1 liter, pending the time when he will begin dialysis. Chronic disease medications will be resumed by the attending physician. He is going to be placed on GI prophylaxis with Pepcid. DVT prophylaxis will be with SCDs in the short term. Flu and pneumonia vaccination will be addressed per protocol. Thank you very much for the consult. We will follow along and make further recommendations as picture progresses/becomes clearer. He is critically ill, about to be on life-sustaining interventions including the hemodialysis, at very high risk of from renal system decompensation. At this time, I spent about 35-40 minutes of critical care time without overlap and excluding any procedural time that may be necessary. TID: [id number] RECEIPT: [id number] CLAUDE/MUKUND
[2021-10-06] MEDS: ASPIRIN 325 MG TAB PO SCH (09:32)
[2021-10-06 09:35] LABS: Chol/HDL Ratio 10.11 %
[2021-10-06] MEDS ORDERED: FAMOTIDINE 20 MG/2 ML INJ IV SCH (10:00)
--- NOTE | 2021-10-06 10:05 | Consultation ---
History of Present Illness - Reason for Consult Consult date: 10/06/21 acute renal failure, hyperkalemia - History of Present Illness 71-year-old man, resident of [facility], with known history of hypertension sent to the emergency room for evaluation of changes in mental status. At time of consult, patient continues to be altered, unable to obtain history, all chart review performed. Noted to have K 7.7, BUN>200, creatinine 18.1 (creatinine 1.2 in 04/2021). EKG showed some peaked T waves. CT scan of the head consistent with features of microvascular ischemia bilateral lacunar infarcts within the basal ganglia and left central semiovale . Past History Past Medical History: heart failure, hypertension, other (Depression) Past Surgical History: No surgical history Social history: no significant social history Family history: no significant family history Medications and Allergies Allergies Allergy/AdvReac Type Severity Reaction Status Date / Time No Known Allergies Allergy Verified 05/09/21 13:32 Home Medications Medication Instructions Recorded Confirmed Last Taken Type Furosemide [Lasix TAB] 40 mg PO QDAY #30 tablet 05/10/21 Unknown Rx carvediloL [Coreg] 6.25 mg PO BID #60 tablet 05/11/21 Unknown Rx NIFEdipine [Nifedipine ER] 60 mg PO DAILY #30 tab 05/13/21 Unknown Rx Valsartan [Diovan] 160 mg PO QDAY #30 tablet 05/13/21 Unknown Rx Active Meds: Active Medications Acetaminophen (Acetaminophen 325 Mg Tab) 650 mg PO Q4H PRN PRN Reason: Pain MILD(1-3)/Fever >100.5/MARROQUIN Aspirin (Aspirin 325 Mg Tab) 325 mg PO QDAY [facility] Last Admin: 10/06/21 09:32 Dose: 325 mg Atorvastatin Calcium (Atorvastatin 40 Mg Tab) 40 mg PO QHS FREDI Bisacodyl (Bisacodyl 10 Mg Rect Supp) 10 mg AR QDAY PRN PRN Reason: Constipation Dextrose (Dextrose 50% In Water (25gm) 50 Ml Syringe) 50 ml IV Q30MIN PRN; Protocol PRN Reason: Hypoglycemia Famotidine (Famotidine 20 Mg/2 Ml Inj) 20 mg IV QDAY [facility] Last Admin: 10/06/21 09:32 Dose: 20 mg Heparin Sodium (Porcine) (Heparin 5,000 Unit/1 Ml Vial) 5,000 unit SUB-Q Q8HR [facility] Sodium Chloride (Nacl 0.9%) 100 mls @ 999 mls/hr IV DESHAWN PRN PRN Reason: Hypotension Magnesium Hydroxide (Magnesium Hydroxide (Mom) Oral Liqd Udc) 30 ml PO Q4H PRN PRN Reason: Constipation Metoclopramide HCl (Metoclopramide 10 Mg/10 Ml Oral Liqd) 2.5 mg PO Q6H PRN PRN Reason: Nausea And Vomiting Ondansetron HCl (Ondansetron 4 Mg/2 Ml Inj) 4 mg IV Q8H PRN PRN Reason: Nausea And Vomiting Promethazine HCl (Promethazine 25 Mg Rect Supp) 25 mg AR Q6H PRN PRN Reason: Nausea And Vomiting Sodium Chloride (Sodium Chloride 0.9% 10 Ml Flush Syringe) 10 ml IV BID [facility] Last Admin: 10/06/21 09:32 Dose: 10 ml Sodium Chloride (Sodium Chloride 0.9% 10 Ml Flush Syringe) 10 ml IV PRN PRN PRN Reason: LINE FLUSH Review of Systems ROS unobtainable: due to mental status Exam - Vital Signs Vital signs: Vital Signs Temp Pulse Resp BP Pulse Ox 98.9 F 56 L 18 132/69 100 10/05/21 21:14 10/05/21 21:14 10/05/21 21:14 10/05/21 21:14 10/05/21 21:14 - General Appearance General appearance: moderate distress, frail EENT: ATNC Neck: Present: neck supple Respiratory: Clear to Ascultation, Normal Exam Heart: regular Gastrointestinal: Present: normoactive bowel sounds Integumentary: no rash, cool/clammy Neurologic: asterixis, confused Results - Lab Results 10/05/21 21:39 10/06/21 04:21 Most recent lab results Calcium 11.0 mg/dL (8.4-10.2) H 10/06/21 04:21 Assessment and Plan # Acute Kidney Injury/Kidney Failure: creatinine 18, BUN>200 with hyperkalemia, acidosis, likely uremic effects. Noted to have creatinine 1.2 earlier this year so suspect acute kidney injury, needs full workup - STAT HD this AM for hyperkalemia, azotemia/uremia- appreciate vascath plac ement - check renal ultrasound, rule out obstruction - urinalysis reviewed, check serologies to rule out GN injury - check PTH, phos - may have CKD at baseline given HTN but less likely to have such drastic progression - strict Is/Os - consider IVF challenges as may have pre-renal injury - suspect will need daily dialysis for short duration given severity of azotemia, need to avoid dialysis disequilibrium - assess for renal recovery as able - avoid nephrotoxins - hold diuretics, EMILIANO/ARB for now # HTN: BP stable currently, off medications for now # Altered Mentation: unknown baseline, may have uremic effects # CVA: care per primary, neurology
--- NOTE | 2021-10-06 10:50 | Progress Note ---
<DIXON SANTO - Last Filed: 10/06/21 17:48> Assessment and Plan Assessment and plan: This is a 71- year- old male who resides at [facility] with known past medical history of HTN, HF, depression, and CKD admitted for AMS, hyperkalemia, and acute on chronic kidney failure required emergent iHD Hospital Course to Date: 10/06: Remains altered but stable on 2L NC, VSS. Still hyperkalemic this am, HD in progress at the bedside. Repeat BMP a hour after HD. CT head/Brain noted. Continue CVA workup, MRI brain, US carotid, and 2D echo pending. Neurology consulted. Patient is hypoglycemic this am, s/p IV insulin for hyperkalemia, continue BG check and hypoglycemic protocol. Will order diet if patient pass bedside swallow. PT/OT/Speech consulted. Left big toe ulcer noted. Per patient's daughter, patient is following with Vascular Surgery outpatient, revascularization was performed in the [facility] in the past and they were talking of possibly amputating that left toe. No evidence of any infectious process at this time and patient is currently hemodynamicaly stable. Will get wound care for w ound management. Follow up with Vascular surgery outpatient for further management. Assessment and Plan #Acute Metabolic Encephalopathy #R/O CVA - Presented with alerted mental status - Probably due to azotemia, but will also r/o acute cva - CT head/brain noted, please see report for full details - Patient is still pleasantly confused this am, still moving all extremities - No significant neuro deficits appreciated - MRI brain, Carotid US, and 2D Echo pending - ASA and Statin initiated - Continue Neuro check per protocol - PT/OT/Speech ordered - Neurology consulted - VTE proph- Heparin SubQ #Acute on Chronic Kidney Disease #Severe Hyperkalemia - Presented with a K of 7.1, Bun/Scr. as high as 224/19.7 this am - s/p IV insulin, D10w, cagluconate, and D50 for high K - Patient is oliguric, ST changes noted on the monitor - Nephrology Consulted and recommended emergent iHD - Temp VasCath inserted this am and HD initiated - Repeat BMP 1 hour after HD treatment - Avoid nephrotoxic medications; Renally dose medications - Monitor and replace electrolytes as needed #Hypertension - SBP in the 160s, SR on the monitor - Resume home meds - Continue blood pressure monitor per protocol - Maintain SBP less than 160 #Big Toe Ulcer, Left - Left big toe ulcer noted - Per patient's daughter, patient is following with Vascular Surgery outpatient, revascularization was performed in the [facility] in the past and they were talking of possibly amputating that left toe. - No evidence of any infectious process at this time and patient is currently hemodynamicaly stable - Will get wound care for wound management - Follow up with Vascular Surgery outpatient for further management. #Hypoglycemia - Received IV insulin for hyperkalemia - BG improved post IV D50w per hypoglycemic protocol - Continue BG check Q6hrs - Continue Hypoglycemic protocol - Will order diet if patient pass bedside swallow - Avoid hypoglycemia #GI/DVT Prophylaxis - PPI- Pepcid - Heparin SubQ - SCDs to bilateral lower extremities while in bed #Advance Care Planning - Disease education data, care plan, diagnoses, and prognosis were discussed with patient's daughter vai phone. Patient is a FULL code. Patient's daughter acknowledged understanding and agreement with current care plan. +CCT 60 minutes History Interval history: Patient seen and examined at the bedside. Only alert and oriented to self, pleasantly confused, on 2L NC. HD in process at the bedside. VSS Hospitalist Physical - Constitutional Vitals: Temp Pulse Resp BP Pulse Ox 98.9 F 56 L 17 113/62 100 10/05/21 21:14 10/06/21 10:15 10/06/21 10:15 10/06/21 10:15 10/06/21 10:15 General appearance: Present: no acute distress, cachectic - EENT Eyes: Present: PERRL ENT: hearing intact - Neck Neck: Present: normal ROM - Respiratory Respiratory effort: normal Respiratory: bilateral: diminished - Cardiovascular Rhythm: regular Heart Sounds: Present: S1 & S2 - Extremities Extremities: no ischemia, pulses intact, pulses symmetrical, abnormal (Lt. big toe ulcer noted) Peripheral Pulses: within normal limits - Abdominal General gastrointestinal: soft, non-distended, normal bowel sounds - Integumentary Integumentary: Present: warm, dry - Psychiatric Psychiatric: appropriate mood/affect, cooperative, other (AAOx1, pleasantly confused) - Neurologic Neurologic: moves all extremities, other (AAOx1, pleasantly confused) - Allied Health Allied health notes reviewed: nursing Results - Labs CBC & Chem 7: 10/05/21 21:39 10/06/21 04:21 Labs: Laboratory Last Values WBC 11.3 K/mm3 (4.5-11.0) H 10/05/21 21:39 RBC 4.31 M/mm3 (3.65-5.03) 10/05/21 21:39 Hgb 12.9 gm/dl (11.8-15.2) 10/05/21 21:39 Hct 39.0 % (35.5-45.6) 10/05/21 21:39 MCV 91 fl (84-94) 10/05/21 21:39 MCH 30 pg (28-32) 10/05/21 21:39 MCHC 33 % (32-34) 10/05/21 21:39 RDW 15.3 % (13.2-15.2) H 10/05/21 21:39 Plt Count 221 K/mm3 (140-440) 10/05/21 21:39 Lymph % (Auto) 7.6 % (13.4-35.0) L 10/05/21 21:39 Hardy % (Auto) 7.7 % (0.0-7.3) H 10/05/21 21:39 Eos % (Auto) 0.5 % (0.0-4.3) 10/05/21 21:39 Baso % (Auto) 0.5 % (0.0-1.8) 10/05/21 21:39 Lymph # (Auto) 0.9 K/mm3 (1.2-5.4) L 10/05/21 21:39 Hardy # (Auto) 0.9 K/mm3 (0.0-0.8) H 10/05/21 21:39 Eos # (Auto) 0.1 K/mm3 (0.0-0.4) 10/05/21 21:39 Baso # (Auto) 0.1 K/mm3 (0.0-0.1) 10/05/21 21:39 Seg Neutrophils % 83.7 % (40.0-70.0) H 10/05/21 21:39 Seg Neutrophils # 9.5 K/mm3 (1.8-7.7) H 10/05/21 21:39 PT 16.6 Sec. (12.2-14.9) H 10/05/21 21:39 INR 1.20 (0.87-1.13) H 10/05/21 21:39 Sodium 145 mmol/L (137-145) 10/06/21 04:21 Potassium 6.1 mmol/L (3.6-5.0) H* D 10/06/21 04:21 Chloride 101.6 mmol/L (98-107) 10/06/21 04:21 Carbon Dioxide 19 mmol/L (22-30) L 10/06/21 04:21 Anion Gap 31 mmol/L 10/06/21 04:21 BUN 224 mg/dL (9-20) H 10/06/21 04:21 Creatinine 19.7 mg/dL (0.8-1.3) H 10/06/21 04:21 Estimated GFR 3 ml/min 10/06/21 04:21 BUN/Creatinine Ratio 11 % 10/06/21 04:21 Glucose 64 mg/dL (75-100) L 10/06/21 04:21 Calcium 11.0 mg/dL (8.4-10.2) H 10/06/21 04:21 Total Bilirubin 0.50 mg/dL (0.1-1.2) 10/05/21 22:41 AST 11 units/L (5-40) 10/05/21 22:41 ALT < 5 units/L (7-56) L 10/05/21 22:41 Alkaline Phosphatase 64 units/L (35-129) 10/05/21 22:41 Ammonia 14.0 umol/L (25-60) L 10/05/21 22:41 Total Protein 8.3 g/dL (6.3-8.2) H 10/05/21 22:41 Albumin 4.9 g/dL (3.9-5) 10/05/21 22:41 Albumin/Globulin Ratio 1.4 % 10/05/21 22:41 Triglycerides 382 mg/dL (2-149) H 10/06/21 04:21 Cholesterol 273 mg/dL (50-199) H 10/06/21 04:21 LDL Cholesterol Direct 151 mg/dL (50-130) H 10/06/21 04:21 HDL Cholesterol 27 mg/dL (40-59) L 10/06/21 04:21 Cholesterol/HDL Ratio 10.11 % 10/06/21 04:21 Urine Color Yellow (Yellow) 10/06/21 Unknown Urine Turbidity Clear (Clear) 10/06/21 Unknown Urine pH 5.0 (5.0-7.0) 10/06/21 Unknown Ur Specific Daphne 1.015 (1.003-1.030) 10/06/21 Unknown Urine Protein <15 mg/dl mg/dL (Negative) 10/06/21 Unknown Urine Glucose (UA) Neg mg/dL (Negative) 10/06/21 Unknown Urine Ketones Neg mg/dL (Negative) 10/06/21 Unknown Urine Blood Sm (Negative) 10/06/21 Unknown Urine Nitrite Neg (Negative) 10/06/21 Unknown Urine Bilirubin Neg (Negative) 10/06/21 Unknown Urine Urobilinogen < 2.0 mg/dL (<2.0) 10/06/21 Unknown Ur Leukocyte Esterase Neg (Negative) 10/06/21 Unknown Urine WBC (Auto) 2.0 /HPF (0.0-6.0) 10/06/21 Unknown Urine RBC (Auto) 4.0 /HPF (0.0-6.0) 10/06/21 Unknown U Epithel Cells (Auto) 3.0 /HPF (0-13.0) 10/06/21 Unknown Urine Bacteria (Auto) 1+ /HPF (Negative) 10/06/21 Unknown Hyaline Casts 14 /LPF 10/06/21 Unknown Urine Mucus Few /HPF 10/06/21 Unknown Urine Yeast (Budding) 2+ /HPF 10/06/21 Unknown Salicylates < 0.3 mg/dL (2.8-20.0) L 10/05/21 22:41 Urine Opiates Screen Presumptive negative 10/06/21 Unknown Urine Methadone Screen Presumptive negative 10/06/21 Unknown Ur Barbiturates Screen Presumptive negative 10/06/21 Unknown Ur Phencyclidine Scrn Presumptive negative 10/06/21 Unknown Ur Amphetamines Screen Presumptive negative 10/06/21 Unknown U Benzodiazepines Scrn Presumptive negative 10/06/21 Unknown Urine Cocaine Screen Presumptive negative 10/06/21 Unknown U Marijuana (THC) Screen Presumptive negative 10/06/21 Unknown Drugs of Abuse Note Disclamer 10/06/21 Unknown Plasma/Serum Alcohol < 0.01 % (0-0.07) 10/05/21 21:39 Paez/IV: Voiding Method Condom Catheter Active Medications - Current Medications Current Medications: Generic Name Dose Route Start Last Admin Trade Name Freq PRN Reason Stop Dose Admin Acetaminophen 650 mg 10/06/21 01:42 Acetaminophen 325 Mg Tab PO Q4H PRN Pain MILD(1-3)/Fever >100.5/MARROQUIN Aspirin 325 mg 10/06/21 10:00 10/06/21 09:32 Aspirin 325 Mg Tab PO 325 mg QDAY FREDI Administration Atorvastatin Calcium 40 mg 10/06/21 22:00 Atorvastatin 40 Mg Tab PO QHS FREDI Bisacodyl 10 mg 10/06/21 01:42 Bisacodyl 10 Mg Rect Supp VA QDAY PRN Constipation Dextrose 50 ml 10/06/21 01:42 Dextrose 50% In Water (25gm) 50 Ml Syringe IV Q30MIN PRN Hypoglycemia Protocol Famotidine 20 mg 10/06/21 10:00 10/06/21 09:32 Famotidine 20 Mg/2 Ml Inj IV 20 mg QDAY FREDI Administration Heparin Sodium (Porcine) 5,000 unit 10/06/21 14:00 Heparin 5,000 Unit/1 Ml Vial SUB-Q Q8HR [facility] Sodium Chloride 100 mls @ 999 mls/hr 10/06/21 02:34 Nacl 0.9% IV DESHAWN PRN Hypotension Magnesium Hydroxide 30 ml 10/06/21 01:42 Magnesium Hydroxide (Mom) Oral Liqd Udc PO Q4H PRN Constipation Metoclopramide HCl 2.5 mg 10/06/21 01:59 Metoclopramide 10 Mg/10 Ml Oral Liqd PO Q6H PRN Nausea And Vomiting Ondansetron HCl 4 mg 10/06/21 01:42 Ondansetron 4 Mg/2 Ml Inj IV Q8H PRN Nausea And Vomiting Promethazine HCl 25 mg 10/06/21 01:42 Promethazine 25 Mg Rect Supp VA Q6H PRN Nausea And Vomiting Sodium Chloride 10 ml 10/06/21 10:00 10/06/21 09:32 Sodium Chloride 0.9% 10 Ml Flush Syringe IV 10 ml BID FREDI Administration Sodium Chloride 10 ml 10/06/21 01:42 Sodium Chloride 0.9% 10 Ml Flush Syringe IV PRN PRN LINE FLUSH <FEMI RICHTER - Last Filed: 10/07/21 10:00> Assessment and Plan Assessment and plan: I saw and evaluated the patient. I agree with the findings and the plan of care as documented in the Nurse Practitioner's~note, with the following corrections and additions. Hospitalist Physical - Constitutional Vitals: Temp Pulse Resp BP Pulse Ox 97.3 F L 66 14 151/80 100 10/07/21 03:29 10/07/21 09:56 10/07/21 06:15 10/07/21 09:56 10/07/21 06:15 Results - Labs CBC & Chem 7: 10/07/21 05:14 10/07/21 05:14 Labs: Laboratory Last Values WBC 6.8 K/mm3 (4.5-11.0) 10/07/21 05:14 RBC 3.37 M/mm3 (3.65-5.03) L 10/07/21 05:14 Hgb 10.0 gm/dl (11.8-15.2) L 10/07/21 05:14 Hct 30.1 % (35.5-45.6) L D 10/07/21 05:14 MCV 89 fl (84-94) 10/07/21 05:14 MCH 30 pg (28-32) 10/07/21 05:14 MCHC 33 % (32-34) 10/07/21 05:14 RDW 15.2 % (13.2-15.2) 10/07/21 05:14 Plt Count 117 K/mm3 (140-440) L 10/07/21 05:14 Lymph % (Auto) 10.4 % (13.4-35.0) L 10/07/21 05:14 Hardy % (Auto) 7.9 % (0.0-7.3) H 10/07/21 05:14 Eos % (Auto) 0.4 % (0.0-4.3) 10/07/21 05:14 Baso % (Auto) 1.1 % (0.0-1.8) 10/07/21 05:14 Lymph # (Auto) 0.7 K/mm3 (1.2-5.4) L 10/07/21 05:14 Hardy # (Auto) 0.5 K/mm3 (0.0-0.8) 10/07/21 05:14 Eos # (Auto) 0.0 K/mm3 (0.0-0.4) 10/07/21 05:14 Baso # (Auto) 0.1 K/mm3 (0.0-0.1) 10/07/21 05:14 Seg Neutrophils % 80.2 % (40.0-70.0) H 10/07/21 05:14 Seg Neutrophils # 5.4 K/mm3 (1.8-7.7) 10/07/21 05:14 PT 16.6 Sec. (12.2-14.9) H 10/05/21 21:39 INR 1.20 (0.87-1.13) H 10/05/21 21:39 Sodium 144 mmol/L (137-145) 10/07/21 05:14 Potassium 4.4 mmol/L (3.6-5.0) 10/07/21 05:14 Chloride 104.4 mmol/L (98-107) 10/07/21 05:14 Carbon Dioxide 23 mmol/L (22-30) 10/07/21 05:14 Anion Gap 21 mmol/L 10/07/21 05:14 BUN 123 mg/dL (9-20) H 10/07/21 05:14 Creatinine 10.9 mg/dL (0.8-1.3) H 10/07/21 05:14 Estimated GFR 6 ml/min 10/07/21 05:14 BUN/Creatinine Ratio 11 % 10/07/21 05:14 Glucose 119 mg/dL (75-100) H 10/07/21 05:14 Calcium 8.8 mg/dL (8.4-10.2) 10/07/21 05:14 Total Bilirubin 0.50 mg/dL (0.1-1.2) 10/05/21 22:41 AST 11 units/L (5-40) 10/05/21 22:41 ALT < 5 units/L (7-56) L 10/05/21 22:41 Alkaline Phosphatase 64 units/L (35-129) 10/05/21 22:41 Ammonia 14.0 umol/L (25-60) L 10/05/21 22:41 Total Protein 8.3 g/dL (6.3-8.2) H 10/05/21 22:41 Albumin 4.9 g/dL (3.9-5) 10/05/21 22:41 Albumin/Globulin Ratio 1.4 % 10/05/21 22:41 Triglycerides 382 mg/dL (2-149) H 10/06/21 04:21 Cholesterol 273 mg/dL (50-199) H 10/06/21 04:21 LDL Cholesterol Direct 151 mg/dL (50-130) H 10/06/21 04:21 HDL Cholesterol 27 mg/dL (40-59) L 10/06/21 04:21 Cholesterol/HDL Ratio 10.11 % 10/06/21 04:21 PTH Intact 333.5 pg/mL (15-65) H 10/07/21 05:14 Urine Color Yellow (Yellow) 10/06/21 Unknown Urine Turbidity Clear (Clear) 10/06/21 Unknown Urine pH 5.0 (5.0-7.0) 10/06/21 Unknown Ur Specific Daphne 1.015 (1.003-1.030) 10/06/21 Unknown Urine Protein <15 mg/dl mg/dL (Negative) 10/06/21 Unknown Urine Glucose (UA) Neg mg/dL (Negative) 10/06/21 Unknown Urine Ketones Neg mg/dL (Negative) 10/06/21 Unknown Urine Blood Sm (Negative) 10/06/21 Unknown Urine Nitrite Neg (Negative) 10/06/21 Unknown Urine Bilirubin Neg (Negative) 10/06/21 Unknown Urine Urobilinogen < 2.0 mg/dL (<2.0) 10/06/21 Unknown Ur Leukocyte Esterase Neg (Negative) 10/06/21 Unknown Urine WBC (Auto) 2.0 /HPF (0.0-6.0) 10/06/21 Unknown Urine RBC (Auto) 4.0 /HPF (0.0-6.0) 10/06/21 Unknown U Epithel Cells (Auto) 3.0 /HPF (0-13.0) 10/06/21 Unknown Urine Bacteria (Auto) 1+ /HPF (Negative) 10/06/21 Unknown Hyaline Casts 14 /LPF 10/06/21 Unknown Urine Mucus Few /HPF 10/06/21 Unknown Urine Yeast (Budding) 2+ /HPF 10/06/21 Unknown Urine Creatinine 234.3 mg/dL (0.1-20.0) H 10/06/21 14:04 Protein/Creatinin Ratio 0.12 10/06/21 14:04 Urine Total Protein 28 mg/dL (5-11.8) H 10/06/21 14:04 Salicylates < 0.3 mg/dL (2.8-20.0) L 10/05/21 22:41 Urine Opiates Screen Presumptive negative 10/06/21 Unknown Urine Methadone Screen Presumptive negative 10/06/21 Unknown Ur Barbiturates Screen Presumptive negative 10/06/21 Unknown Ur Phencyclidine Scrn Presumptive negative 10/06/21 Unknown Ur Amphetamines Screen Presumptive negative 10/06/21 Unknown U Benzodiazepines Scrn Presumptive negative 10/06/21 Unknown Urine Cocaine Screen Presumptive negative 10/06/21 Unknown U Marijuana (THC) Screen Presumptive negative 10/06/21 Unknown Drugs of Abuse Note Disclamer 10/06/21 Unknown Plasma/Serum Alcohol < 0.01 % (0-0.07) 10/05/21 21:39 Hepatitis A IgM Ab Non-reactive (NonReactive) 10/06/21 09:12 Hep Bs Antigen Non-reactive (Negative) 10/06/21 09:12 Hep B Core IgM Ab Non-reactive (NonReactive) 10/06/21 09:12 Hepatitis C Antibody Non-reactive (NonReactive) 10/06/21 09:12 Paez/IV: Voiding Method Incontinent Active Medications - Current Medications Current Medications: Generic Name Dose Route Start Last Admin Trade Name Freq PRN Reason Stop Dose Admin Acetaminophen 650 mg 10/06/21 01:42 Acetaminophen 325 Mg Tab PO Q4H PRN Pain MILD(1-3)/Fever >100.5/MARROQUIN Aspirin 325 mg 10/06/21 10:00 10/07/21 09:56 Aspirin 325 Mg Tab PO 325 mg QDAY FREDI Administration Atorvastatin Calcium 40 mg 10/06/21 22:00 10/06/21 21:34 Atorvastatin 40 Mg Tab PO 40 mg QHS FREDI Administration Bisacodyl 10 mg 10/06/21 01:42 Bisacodyl 10 Mg Rect Supp VA QDAY PRN Constipation Carvedilol 6.25 mg 10/07/21 10:00 10/07/21 09:56 Carvedilol 6.25 Mg Tab PO 6.25 mg BID FREDI Administration Dextrose 50 ml 10/06/21 01:42 Dextrose 50% In Water (25gm) 50 Ml Syringe IV Q30MIN PRN Hypoglycemia Protocol Famotidine 20 mg 10/07/21 10:00 10/07/21 09:56 Famotidine 20 Mg Tab PO 20 mg DAILY FREDI Administration Heparin Sodium (Porcine) 5,000 unit 10/06/21 14:00 10/07/21 06:29 Heparin 5,000 Unit/1 Ml Vial SUB-Q Not Given Q8HR FREDI Hydralazine HCl 10 mg 10/06/21 18:38 10/07/21 06:28 Hydralazine 20 Mg/1 Ml Inj IV 10 mg Q4HR PRN Administration Hypertension Sodium Chloride 100 mls @ 999 mls/hr 10/06/21 02:34 Nacl 0.9% IV DESHAWN PRN Hypotension Sodium Chloride 1,000 mls @ 100 mls/hr 10/06/21 15:00 10/07/21 02:37 Nacl 0.9% 1000 Ml IV 100 mls/hr DIRECT FREDI Administration Magnesium Hydroxide 30 ml 10/06/21 01:42 Magnesium Hydroxide (Mom) Oral Liqd Udc PO Q4H PRN Constipation Metoclopramide HCl 2.5 mg 10/06/21 01:59 Metoclopramide 10 Mg/10 Ml Oral Liqd PO Q6H PRN Nausea And Vomiting Nifedipine 60 mg 10/07/21 10:00 10/07/21 09:56 Nifedipine Xl 60 Mg Tab PO 60 mg DAILY FREDI Administration Ondansetron HCl 4 mg 10/06/21 01:42 Ondansetron 4 Mg/2 Ml Inj IV Q8H PRN Nausea And Vomiting Promethazine HCl 25 mg 10/06/21 01:42 Promethazine 25 Mg Rect Supp VA Q6H PRN Nausea And Vomiting Sodium Chloride 10 ml 10/06/21 10:00 10/07/21 09:57 Sodium Chloride 0.9% 10 Ml Flush Syringe IV 10 ml BID FREDI Administration Sodium Chloride 10 ml 10/06/21 01:42 Sodium Chloride 0.9% 10 Ml Flush Syringe IV PRN PRN LINE FLUSH Valsartan 160 mg 10/07/21 10:00 10/07/21 09:56 Valsartan 160mg Tab PO 160 mg QDAY FREDI Administration Nutrition/Malnutrition Assess - Dietary Evaluation Nutrition/Malnutrition Findings: Nutrition Notes Start: 10/06/21 1 6:50 Freq: Status: Active Protocol: Document 10/06/21 16:50 NOEL (Rec: 10/06/21 17:01 NOEL [id number]) Nutrition Notes Need for Assessment generated from: Order,ethanol operations manager,MST, Education Initial or Follow up Assessment Current Diagnosis Acute Kidney Injury, Hypertension,Stroke Other Pertinent Diagnosis AMS, HARDIK+HD, Hyperkalemia. Current Diet Pureed Diet (since D 10/06). Labs/Tests 10/06: K 6.1, CO2 19, BUN 224, Crea 19.7, Glu 64, Ca 11.0. Pertinent Medications 10/06: Nutritionally unremarkable. Height 6 ft 2 in Weight 74.843 kg [place] Body Weight (kg) 86.36 BMI 21.2 Intake Prior to Admission Poor Weight change and time frame Pt states being unsure if loss body weight STRATEGIC BUSINESS DEVELOPMENT. Weight Status Appropriate Subjective/Other Information RD consult for nutrition education assessment. No reports available on Pt's PO intake of meals at the time , will assess at F/U. REGISTRATION REP note on 10/06/21 14:53: Patient demonstrates a delayed oral transit time with a swallow reflex of 1 second. No evidence of aspiration was identified. However, per nurse , the patient's family reported that the patient's baseline intake is poor. Recommend a pureed diet with thins with an alternative method of nutrition. - END OF NOTE. Pt is on Nasal Cannula, O2 saturation @ 96%, according to Physical Assessment History notes. Pt shows no signs of concer for risk of malnutrition at the time, according to Physical Assessment History notes. Pt has missing teeth, according to Physical Assessment History notes. Pt is a SNF reesident, according to Progress notes. Pt still in critical condition , not a candidate for Nutrition Education at the time, will assess feasibility on F/U. Percent of energy/protein needs met: Prescribed Pureed Diet provides for energy/protein needs (1,804 Kcal/77 g) during LOS. Burn Absent Trauma Absent GI Symptoms None Food Allergy No Skin Integrity/Comment Unspecified dryness. Minimum of two criteria No Fluid Accumulation N/A Reduced Wrapper Layer And Examiner Soft Work Strength N/A (non-severe) Protein-Calorie Malnutrition N\A #1 Nutrition Diagnosis No nutrition diagnosis at this time Comments: Will assess Pt's PO intake of meals at F/U. Is patient on ventilator? No Is Patient Ambulatory and/or Out of Bed No REE-([facility]-confined to bed) 1893.732 Kcal/Kg value to use for calculation 31 Approximate Energy Requirements Using 2320 kcal/Kg Calculation Used for Recommendations Kcal/kg Additional Notes Protein: >1.2 g/Kg IBW; >103 g /day. Fluids: 1 ml/Kcal, or as per MD. Nutrition Intervention Change Diet Order: Continue Pureed Diet. Follow-Up By: 10/13/21 Additional Comments Nutrition education will be provided at F/U, if feasible. Continue monitoring food tolerance, %PO intake of meals , and BM.
[2021-10-06 13:48] LABS: Hepatitis B Surface Antigen Non-Reactive (Negative); Hepatitis C Virus Antibody Non-Reactive (NonReactive)
[2021-10-06] MEDS: HEPARIN 5,000 UNIT/1 ML VIAL SUB-Q SCH ×2 (14:00→21:34)
--- NOTE | 2021-10-06 14:54 | XRay Report ---
CHEST 1 VIEW INDICATION / CLINICAL INFORMATION: Pneumothorax evaluation STUDY TIME: 1326 COMPARISON: 10/06/2021 FINDINGS: SUPPORT DEVICES: Stable HEART / MEDIASTINUM: No significant abnormality. LUNGS / PLEURA: Less than full inspiration. Mild bibasilar linear atelectatic change. Mild chronic ch anges. No definite pneumonic infiltrates or effusions. No pneumothorax. ADDITIONAL FINDINGS: No significant additional findings. Signer Name: Alejandro Nino MD Signed: 10/06/2021 2:49 PM Workstation Name: [id number]
--- NOTE | 2021-10-06 15:29 | Vascular Lab Report ---
DUPLEX DOPPLER ULTRASOUND CAROTID, BILATERAL INDICATION / CLINICAL INFORMATION: stroke. COMPARISON: None available. FINDINGS: RIGHT CAROTID: - PLAQUE ESTIMATE (%): < 50% - CCA velocity: 31.9 cm/sec. - ICA peak systolic velocity: 73.6 cm/sec. - ICA/CCA PSV Ratio: 2.3 Right Vertebral Artery: Antegrade flow. LEFT CAROTID: - PLAQUE ESTIMATE: < 50% - CCA velocity: 47.0 cm/sec. - ICA peak systolic velocity: 65.3 cm/sec. - ICA/CCA PSV Ratio: 1.4 Left Vertebral Artery: Antegrade flow. IMPRESSION: 1. Right Internal Carotid Artery: Less than 50% diameter stenosis.Nonspecific elevation of the right ICA/CCA ratio without abnormally elevated peak systolic velocities to suggest arterial stenosis great er than 50%. 2. Left Internal Carotid Artery: Less than 50% diameter stenosis. Velocity criteria are extrapolated from diameter data as defined by the Society of Radiologists in Ul trasound Consensus Conference, Radiology 2003; 229;340-346. NO STENOSIS (NORMAL) * Plaque = none; ICA PSV < 125 cm/sec; ICA/CCA PSV Ratio < 2.0 <50% STENOSIS * Plaque < 50%; ICA PSV < 125 cm/sec; ICA/CCA PSV Ratio < 2.0 50-69% STENOSIS * Plaque > 50%; ICA PSV = 125-230 cm/sec; ICA/CCA PSV Ratio = 2.0-4.0 >70% BUT <100% STENOSIS * Plaque > 50%; ICA PSV > 230 cm/sec; ICA/CCA PSV Ratio > 4.0 NEAR OCCLUSION * Plaque = visible lumen; ICA PSV = high/low/none; ICA/CCA PSV Ratio = variable TOTAL OCCLUSION * Plaque = no lumen; ICA PSV = none; ICA/CCA PSV Ratio = N/A Signer Name: Yayo Ragland MD Signed: 10/06/2021 3:24 PM Workstation Name: [id number]
[2021-10-06] MEDS: SODIUM CHLORIDE 0.9% 1000 ML 1,000 ML IV SCH (16:00)
--- NOTE | 2021-10-06 16:13 | Consultation ---
History of Present Illness Consult date: 10/06/21 Reason for Consult: Confusion History of present illness: The Consult is for Confusion, some improvement since the admission . Past History Past Medical History: heart failure, hypertension, other (Depression) Past Surgical History: No surgical history Social history: no significant social history Family history: no significant family history Medications and Allergies Allergies Allergy/AdvReac Type Severity Reaction Status Date / Time No Known Allergies Allergy Verified 05/09/21 13:32 Home Medications Medication Instructions Recorded Confirmed Last Taken Type Furosemide [Lasix TAB] 40 mg PO QDAY #30 tablet 05/10/21 Unknown Rx carvediloL [Coreg] 6.25 mg PO BID #60 tablet 05/11/21 Unknown Rx NIFEdipine [Nifedipine ER] 60 mg PO DAILY #30 tab 05/13/21 Unknown Rx Valsartan [Diovan] 160 mg PO QDAY #30 tablet 05/13/21 Unknown Rx Active Meds: Active Medications Acetaminophen (Acetaminophen 325 Mg Tab) 650 mg PO Q4H PRN PRN Reason: Pain MILD(1-3)/Fever >100.5/[place] Aspirin (Aspirin 325 Mg Tab) 325 mg PO QDAY [facility] Last Admin: 10/06/21 09:32 Dose: 325 mg Atorvastatin Calcium (Atorvastatin 40 Mg Tab) 40 mg PO QHS FREDI Bisacodyl (Bisacodyl 10 Mg Rect Supp) 10 mg CO QDAY PRN PRN Reason: Constipation Dextrose (Dextrose 50% In Water (25gm) 50 Ml Syringe) 50 ml IV Q30MIN PRN; Protocol PRN Reason: Hypoglycemia Famotidine (Famotidine 20 Mg/2 Ml Inj) 20 mg IV QDAY [facility] Last Admin: 10/06/21 09:32 Dose: 20 mg Heparin Sodium (Porcine) (Heparin 5,000 Unit/1 Ml Vial) 5,000 unit SUB-Q Q8HR [facility] Last Admin: 10/06/21 14:00 Dose: 5,000 unit Sodium Chloride (Nacl 0.9%) 100 mls @ 999 mls/hr IV DESHAWN PRN PRN Reason: Hypotension Sodium Chloride (Nacl 0.9% 1000 Ml) 1,000 mls @ 100 mls/hr IV DIRECT FREDI Magnesium Hydroxide (Magnesium Hydroxide (Mom) Oral Liqd Udc) 30 ml PO Q4H PRN PRN Reason: Constipation Metoclopramide HCl (Metoclopramide 10 Mg/10 Ml Oral Liqd) 2.5 mg PO Q6H PRN PRN Reason: Nausea And Vomiting Ondansetron HCl (Ondansetron 4 Mg/2 Ml Inj) 4 mg IV Q8H PRN PRN Reason: Nausea And Vomiting Promethazine HCl (Promethazine 25 Mg Rect Supp) 25 mg CO Q6H PRN PRN Reason: Nausea And Vomiting Sodium Chloride (Sodium Chloride 0.9% 10 Ml Flush Syringe) 10 ml IV BID FREDI Last Admin: 10/06/21 09:32 Dose: 10 ml Sodium Chloride (Sodium Chloride 0.9% 10 Ml Flush Syringe) 10 ml IV PRN PRN PRN Reason: LINE FLUSH Physical Examination - Vital Signs Vital Signs: Vital Signs Temp Pulse Resp BP Pulse Ox 98.9 F 56 L 18 132/69 100 10/05/21 21:14 10/05/21 21:14 10/05/21 21:14 10/05/21 21:14 10/05/21 21:14 - Physical Exam Narrative exam: The patient is alert , moves all 4 extremity , able to follow mid line commanda . Results - Laboratory Findings CBC and BMP: 10/05/21 21:39 10/06/21 04:21 Abnormal Lab Findings: Abnormal Labs 10/05/21 10/05/21 10/05/21 21:39 21:39 22:41 WBC 11.3 H RDW 15.3 H Lymph % (Auto) 7.6 L [place] % (Auto) 7.7 H Lymph # (Auto) 0.9 L [place] # (Auto) 0.9 H Seg Neutrophils % 83.7 H Seg Neutrophils # 9.5 H PT 16.6 H INR 1.20 H Potassium Carbon Dioxide BUN Creatinine Glucose Calcium ALT Ammonia Total Protein Triglycerides Cholesterol LDL Cholesterol Direct HDL Cholesterol Salicylates < 0.3 L 10/05/21 10/05/21 10/06/21 22:41 22:41 04:21 WBC RDW Lymph % (Auto) [place] % (Auto) Lymph # (Auto) [place] # (Auto) Seg Neutrophils % Seg Neutrophils # PT INR Potassium 7.7 H* 6.1 H* D Carbon Dioxide 19 L BUN 216 H 224 H Creatinine 18.1 H 19.7 H Glucose 117 H 64 L Calcium 11.0 H ALT < 5 L [place] 14.0 L Total Protein 8.3 H Triglycerides Cholesterol LDL Cholesterol Direct HDL Cholesterol Salicylates 10/06/21 04:21 WBC RDW Lymph % (Auto) [place] % (Auto) Lymph # (Auto) [place] # (Auto) Seg Neutrophils % Seg Neutrophils # PT INR Potassium Carbon Dioxide BUN Creatinine Glucose Calcium ALT [place] Total Protein Triglycerides 382 H Cholesterol 273 H LDL Cholesterol Direct 151 H HDL Cholesterol 27 L Salicylates Assessment and Plan 1.Improving Encephalopathy - rule out acute CVA -reviewed CT Brain . 2. MRI Brain no contrast . 3. Continue ALL home medications . 4. Call Back with questions . Dr. Watt
[2021-10-06 16:27] LABS: Creatinine,Urine 234.3 mg/dL (0.1-20.0); Protein/Creatinine Ratio,Urine 0.12
--- NOTE | 2021-10-06 17:19 | Ultrasound Report ---
ULTRASOUND RENAL INDICATION: HARDIK. COMPARISON: No relevant prior imaging study available. FINDINGS: RIGHT KIDNEY: Size: 8.4 cm. Echogenicity: Normal. Cortical thickness: Normal. Stones: None. Hydronephrosis: None. Cyst or mass: None. LEFT KIDNEY: Size: 8.5 cm. Echogenicity: Normal. Cortical thickness: Normal. Stones: None. Hydronephrosis: None. Cyst or mass: None. Urinary Bladder: No significant abnormality. Free Fluid: None. Additional Findings: None. IMPRESSION 1. No acute sonographic abnormality of the kidneys. Mild bilateral renal atrophy. Signer Name: Fortunato Hayes MD Signed: 10/06/2021 5:15 PM Workstation Name: [id number]
[2021-10-06 18:13] LABS: Calcium 9.3 mg/dL (8.4-10.2)
[2021-10-06] MEDS ORDERED: carvediloL 3.125 MG TAB PO SCH (22:00)
[2021-10-07] MEDS: hydrALAZINE 20 MG/1 ML INJ IV PRN ×2 (02:29→06:28)
[2021-10-07] MEDS: SODIUM CHLORIDE 0.9% 1000 ML 1,000 ML IV SCH (02:37)
[2021-10-07 05:45] LABS: Basophils # (Auto) 0.1 K/mm3 (0.0-0.1); Basophils % (Auto) 1.1 % (0.0-1.8); Eosinophils % (Auto) 0.4 % (0.0-4.3); Hematocrit 30.1 % (35.5-45.6); Lymphocytes # (Auto) 0.7 K/mm3 (1.2-5.4); Lymphocytes % (Auto) 10.4 % (13.4-35.0); Mean Corpuscular HGB Conc 33 % (32-34); Mean Corpuscular Volume 89 fl (84-94); Monocytes # (Auto) 0.5 K/mm3 (0.0-0.8); Monocytes % (Auto) 7.9 % (0.0-7.3); Platelet Count 117 K/mm3 (140-440); Red Blood Count 3.37 M/mm3 (3.65-5.03); Red Cell Distribution Width 15.2 % (13.2-15.2)
[2021-10-07 05:55] LABS: Calcium 8.8 mg/dL (8.4-10.2)
[2021-10-07] MEDS: HEPARIN 5,000 UNIT/1 ML VIAL SUB-Q SCH ×3 (06:29→21:37)
[2021-10-07] MEDS: NIFEdipine XL 60 MG TAB PO SCH (09:56)
[2021-10-07] MEDS: ASPIRIN 325 MG TAB PO SCH (09:56)
[2021-10-07] MEDS: FAMOTIDINE 20 MG TAB PO SCH (09:56)
[2021-10-07] MEDS: carvediloL 6.25 MG TAB PO SCH ×2 (09:56→21:37)
[2021-10-07] MEDS ORDERED: VALSARTAN 160MG TAB PO SCH (10:00)
--- NOTE | 2021-10-07 10:06 | Magnetic Resonance Report ---
MRI BRAIN 10/07/2021 INDICATION / CLINICAL INFORMATION: confusion. TECHNIQUE: Multiplanar, multisequence MR images of the brain were obtained. COMPARISON: None available. FINDINGS: BRAIN / INTRACRANIAL CONTENTS: Unenhanced MR images of the brain were obtained. Ventricles and sulci are prominent in size, consistent with prominent age-related diffuse cerebral at rophy. Extensive diffuse chronic white matter T2 weighted signal changes present throughout the cereb ral hemispheric white matter. There is more focal area of encephalomalacia involving the anterior aspect of the right temporal lobe . There is no evidence of associated ischemic injury at this location. There is a subtle punctate area of increased diffusion weighted signal present in the left thalamus, too small to correlate with ADC signal change. This may be evidence of recent or acute left thalamic infarct. Chronic ischemic change in the left basal ganglia associated with evidence of remote hemosid jaelyn deposition is present. There is no evidence of acute hemorrhage. There is no evidence of mass. There are no abnormal extra-a xial fluid collections. EXTRACRANIAL: Unremarkable CRANIOCERVICAL JUNCTION: No significant abnormality. VASCULAR FLOW-VOIDS: No significant abnormality. IMPRESSION: 1. Extensive chronic and age-related changes. 2. Punctate focus of increased diffusion weighted signal in left thalamus as discussed above. Signer Name: Ty Yeboah MD Signed: 10/07/2021 10:02 AM Workstation Name: [id number]
--- NOTE | 2021-10-07 10:09 | Progress Note ---
Assessment and Plan Acute toxic metabolic encephalopathy Acute on chronic kidney injury Severe hyperkalemia Hypertension CMOP Mild leukocytosis Left big toe ulcer -Titrate supplemental oxygen to keep SpO2 89-92%. Currently on NC, FIO2 32% -Aspiration precautions - continue to avoid nephrotoxins, renally dose all medications -Supportive HD per renal service -continue mobility, off loading, frequent turning to prevent pressure ulcers - PT/OT to evaluate and treat - continue accuchecks with glycemic control per SSI for target blood glucose < 180 mg/dL -Avoid hypoglycemia, patient had an episode of hypoglycemia that required D50 -Avoid delirium, maintain sleep-wake cycle -VTE prophylaxis- Heparin -Chronic home medications as clinically indicated - Flu & pneumovax per protocol -Follow up with Vascular Surgery outpatient for further management, of toe ulcer - continue other care per attending / other consultants Can transfer telemetry Subjective Date of service: 10/07/21 Interval history: Patient is seen today for: Acute toxic metabolic encephalopathy; Acute kidney injury; Severe hyperkalemia; Hypertension; CMOP; Mild leukocytosis Seen and examined at bedside; 24hour events reviewed; nursing and respiratory care staff consulted; no adverse overnight events reported to me; resting in bed; s/p HD- RIJ HD catheter Objective - Exam Narrative Exam: Vitals reviewed General appearance: Present: no acute distress, cachectic - EENT Eyes: Present: PERRL ENT: hearing intact - Neck Neck: Present: normal ROM RIJ HD catheter - Respiratory Respiratory effort: normal Respiratory: bilateral: diminished - Cardiovascular Rhythm: regular Heart Sounds: Present: S1 & S2 - Extremities Extremities: no ischemia, pulses intact, pulses symmetrical, abnormal (Lt. big toe ulcer noted) Peripheral Pulses: within normal limits - Abdominal General gastrointestinal: soft, non-distended, normal bowel sounds - Integumentary Integumentary: Present: warm, dry - Psychiatric Psychiatric: appropriate mood/affect, cooperative, other (AAOx1, pleasantly confused) - Neurologic Neurologic: moves all extremities, other (AAOx1, pleasantly confused) Vital Signs - 12hr 10/06/21 10/06/21 10/06/21 22:29 22:30 22:45 Temperature Pulse Rate 86 77 Respiratory 25 H 14 Rate Blood Pressure 138/101 160/80 160/80 O2 Sat by Pulse Oximetry 10/06/21 10/06/21 10/06/21 23:00 23:01 23:15 Temperature Pulse Rate 89 74 69 Respiratory 14 12 Rate Blood Pressure 179/86 179/86 O2 Sat by Pulse Oximetry 10/06/21 10/06/21 10/06/21 23:25 23:30 23:45 Temperature 97.6 F Pulse Rate 72 74 Respiratory 15 15 Rate Blood Pressure 172/89 172/89 O2 Sat by Pulse Oximetry 10/07/21 10/07/21 10/07/21 00:00 00:01 00:15 Temperature Pulse Rate 87 83 Respiratory 25 H 21 Rate Blood Pressure 170/94 170/94 O2 Sat by Pulse 97 Oximetry 10/07/21 10/07/21 10/07/21 00:31 00:55 01:00 Temperature Pulse Rate 87 90 85 Respiratory 19 15 11 L Rate Blood Pressure 169/89 169/89 178/94 O2 Sat by Pulse Oximetry 10/07/21 10/07/21 10/07/21 01:15 01:30 01:45 Temperature Pulse Rate 78 71 82 Respiratory 12 13 19 Rate Blood Pressure 178/94 178/91 166/88 O2 Sat by Pulse Oximetry 10/07/21 10/07/21 10/07/21 02:01 02:15 02:29 Temperature Pulse Rate 76 78 99 H Respiratory 12 14 Rate Blood Pressure 183/74 183/74 183/74 O2 Sat by Pulse Oximetry 10/07/21 10/07/21 10/07/21 02:31 02:45 03:00 Temperature Pulse Rate 85 71 70 Respiratory 15 16 24 Rate Blood Pressure 183/74 183/74 190/92 O2 Sat by Pulse Oximetry 10/07/21 10/07/21 10/07/21 03:15 03:29 03:31 Temperature 97.3 F L Pulse Rate 103 H 88 Respiratory 15 14 Rate Blood Pressure 190/92 139/82 O2 Sat by Pulse Oximetry 10/07/21 10/07/21 10/07/21 03:45 04:00 04:15 Temperature Pulse Rate 72 77 94 H Respiratory 10 L 11 L 13 Rate Blood Pressure 139/82 154/77 154/77 O2 Sat by Pulse 97 Oximetry 10/07/21 10/07/21 10/07/21 04:49 05:00 05:15 Temperature Pulse Rate 87 77 Respiratory 17 12 Rate Blood Pressure 154/77 175/98 176/93 O2 Sat by Pulse 65 L 97 Oximetry 10/07/21 10/07/21 10/07/21 05:31 05:45 06:00 Temperature Pulse Rate 69 71 78 Respiratory 8 L 13 25 H Rate Blood Pressure 176/93 154/77 179/95 O2 Sat by Pulse 97 99 100 Oximetry 10/07/21 10/07/21 10/07/21 06:15 06:28 09:56 Temperature Pulse Rate 68 67 66 Respiratory 14 Rate Blood Pressure 179/95 179/95 151/80 O2 Sat by Pulse 100 Oximetry CBC and BMP: 10/08/21 04:56 10/12/21 04:50 ABG, PT/INR, D-dimer: PT/INR, D-dimer PT 16.6 Sec. (12.2-14.9) H 10/05/21 21:39 INR 1.20 (0.87-1.13) H 10/05/21 21:39 Abnormal lab findings: Abnormal Labs 10/05/21 10/05/21 10/05/21 21:39 21:39 22:41 WBC 11.3 H RBC Hgb Hct RDW 15.3 H Plt Count Lymph % (Auto) 7.6 L [place] % (Auto) 7.7 H Lymph # (Auto) 0.9 L [place] # (Auto) 0.9 H Seg Neutrophils % 83.7 H Seg Neutrophils # 9.5 H PT 16.6 H INR 1.20 H Potassium Carbon Dioxide BUN Creatinine Glucose Calcium ALT Ammonia Total Protein Triglycerides Cholesterol LDL Cholesterol Direct HDL Cholesterol PTH Intact Urine Creatinine Urine Total Protein Salicylates < 0.3 L 10/05/21 10/05/21 10/06/21 22:41 22:41 04:21 WBC RBC Hgb Hct RDW Plt Count Lymph % (Auto) [place] % (Auto) Lymph # (Auto) [place] # (Auto) Seg Neutrophils % Seg Neutrophils # PT INR Potassium 7.7 H* 6.1 H* D Carbon Dioxide 19 L BUN 216 H 224 H Creatinine 18.1 H 19.7 H Glucose 117 H 64 L Calcium 11.0 H ALT < 5 L Ammonia 14.0 L Total Protein 8.3 H Triglycerides Cholesterol LDL Cholesterol Direct HDL Cholesterol PTH Intact Urine Creatinine Urine Total Protein Salicylates 10/06/21 10/06/21 10/06/21 04:21 14:04 17:30 WBC RBC Hgb Hct RDW Plt Count Lymph % (Auto) [place] % (Auto) Lymph # (Auto) [place] # (Auto) Seg Neutrophils % Seg Neutrophils # PT INR Potassium Carbon Dioxide BUN 131 H Creatinine 12.7 H Glucose 157 H Calcium ALT Ammonia Total Protein Triglycerides 382 H Cholesterol 273 H LDL Cholesterol Direct 151 H HDL Cholesterol 27 L PTH Intact Urine Creatinine 234.3 H Urine Total Protein 28 H Salicylates 10/07/21 10/07/21 10/07/21 05:14 05:14 05:14 WBC RBC 3.37 L Hgb 10.0 L Hct 30.1 L D RDW Plt Count 117 L Lymph % (Auto) 10.4 L [place] % (Auto) 7.9 H Lymph # (Auto) 0.7 L [place] # (Auto) Seg Neutrophils % 80.2 H Seg Neutrophils # PT INR Potassium Carbon Dioxide BUN 123 H Creatinine 10.9 H Glucose 119 H Calcium ALT [place] Total Protein Triglycerides Cholesterol LDL Cholesterol Direct HDL Cholesterol PTH Intact 333.5 H Urine Creatinine Urine Total Protein Salicylates Allied health notes reviewed: nursing
--- NOTE | 2021-10-07 11:06 | Progress Note ---
<DIXON SANTO - Last Filed: 10/07/21 17:23> Assessment and Plan Assessment and plan: This is a 71- year- old male who resides at [facility] with known past medical history of HTN, HF, depression, and CKD admitted for AMS, hyperkalemia, and acute on chronic kidney failure required emergent iHD Hospital Course to Date: 10/06: Remains altered but stable on 2L NC, VSS. Still hyperkalemic this am, HD in progress at the bedside. Repeat BMP a hour after HD. CT head/Brain noted. Continue CVA workup, MRI brain, US carotid, and 2D echo pending. Neurology consulted. Patient is hypoglycemic this am, s/p IV insulin for hyperkalemia, continue BG check and hypoglycemic protocol. Will order diet if patient pass bedside swallow. PT/OT/Speech consulted. Left big toe ulcer noted. Per patient's daughter, patient is following with Vascular Surgery outpatient, revascularization was performed in the [facility] in the past and they were talking of possibly amputating that left toe. No evidence of any infectious process at this time and patient is currently hemodynamicaly stable. Will get wound care for w ound management. Follow up with Vascular surgery outpatient for further management. 10/07: Increased confusion and agitation required wrist restraints overnight for safety. Patient is still confused this am, but calm and cooperative. MRI brain pending. Patient tolerated HD yesterday. Hypertensive this am, resumed home meds and continue PRN antihypertensives. Continue HD per Nephro. Patient is stable for transfer to Telemetry. Assessment and Plan #Acute Metabolic Encephalopathy #R/O CVA - Presented with alerted mental status - Probably due to azotemia, but will also r/o acute cva - CT head/brain noted, please see report for full details - Patient is still pleasantly confused this am, still moving all extremities - No significant neuro deficits appreciated - MRI brain, Carotid US,2D Echo pending - ASA and Statin initiated - Continue Neuro check per protocol - PT/OT/Speech ordered - Neurology consulted, appreciated recommendations - VTE proph- Heparin SubQ #Acute on Chronic Kidney Disease #Severe Hyperkalemia- resolved - Presented with a K of 7.1, Bun/Scr. as high as 224/19.7 this am - s/p IV insulin, D10w, cagluconate, and D50 for high K - Patient is oliguric, ST changes noted on the monitor - Nephrology Consulted and recommended emergent iHD - Temp. VasCath inserted this am and HD initiated on 10/07 - Continue HD per Nephro - Avoid nephrotoxic medications; Renally dose medications - Monitor and replace electrolytes as needed #Hypertension - SBP in the 160s, SR on the monitor - Resume home meds - Continue blood pressure monitor per protocol - PRN Hydralazine for SBP greater than 160 #Big Toe Ulcer, Left - Left big toe ulcer noted - Per patient's daughter, patient is following with Vascular Surgery outpatient, revascularization was performed in the [facility] in the past and they were talking of possibly amputating that left toe. - No evidence of any infectious process at this time and patient is currently hemodynamicaly stable - Will get wound care for wound management - Follow up with Vascular Surgery outpatient for further management. #Hypoglycemia-resolved - Received IV insulin for hyperkalemia - BG improved post IV D50w per hypoglycemic protocol - Continue BG check Q6hrs - Continue Hypoglycemic protocol - On pureed diet per Speech therapy - Avoid hypoglycemia #GI/DVT Prophylaxis - PPI- Pepcid - Heparin SubQ - SCDs to bilateral lower extremities while in bed #Advance Care Planning - Disease education data, care plan, diagnoses, and prognosis were discussed wit h patient's daughter. Patient is a FULL code. Patient's daughter acknowledged understanding and agreement with current care plan. The high probability of a clinically significant, sudden or life threatening deterioration of the [multiple] system(s) required my full and direct attention, intervention and personal management. The aggregate critical care time was [60] minutes. This time is in addition to time spent performing reported procedures but includes the following: [x] Data Review and interpretation [x] Patient assessment and monitoring of vital signs [x] Documentation [x] Medication orders and management Disposition Plan: ICU Total Time Spent with Patient (Minutes): 60 History Interval history: Patient seen and examined at the bedside. Only alert and oriented to self, pleasantly confused this am, stable on RA. Patient tolerated HD yesterday. Increased confusion and agitation overnight, patient was placed a bilateral wrist restraints for safety. Hospitalist Physical - Physical exam Narrative exam: General appearance: Present: no acute distress, cachectic - EENT Eyes: Present: PERRL ENT: hearing intact - Neck Neck: Present: normal ROM - Respiratory Respiratory effort: normal Respiratory: bilateral: diminished - Cardiovascular Rhythm: regular Heart Sounds: Present: S1 & S2 - Extremities Extremities: no ischemia, pulses intact, pulses symmetrical, abnormal (Lt. big toe ulcer noted) Peripheral Pulses: within normal limits - Abdominal General gastrointestinal: soft, non-distended, normal bowel sounds - Integumentary Integumentary: Present: warm, dry - Psychiatric Psychiatric: appropriate mood/affect, cooperative, other (AAOx1, pleasantly confused) - Neurologic Neurologic: moves all extremities, other (AAOx1, pleasantly confused) - Allied Health Allied health notes reviewed: nursing, case management - Constitutional Vitals: Temp Pulse Resp BP Pulse Ox 97.3 F L 66 14 151/80 100 10/07/21 03:29 10/07/21 09:56 10/07/21 06:15 10/07/21 09:56 10/07/21 06:15 Results - Labs CBC & Chem 7: 10/07/21 05:14 10/07/21 05:14 Labs: Laboratory Last Values WBC 6.8 K/mm3 (4.5-11.0) 10/07/21 05:14 RBC 3.37 M/mm3 (3.65-5.03) L 10/07/21 05:14 Hgb 10.0 gm/dl (11.8-15.2) L 10/07/21 05:14 Hct 30.1 % (35.5-45.6) L D 10/07/21 05:14 MCV 89 fl (84-94) 10/07/21 05:14 MCH 30 pg (28-32) 10/07/21 05:14 MCHC 33 % (32-34) 10/07/21 05:14 RDW 15.2 % (13.2-15.2) 10/07/21 05:14 Plt Count 117 K/mm3 (140-440) L 10/07/21 05:14 Lymph % (Auto) 10.4 % (13.4-35.0) L 10/07/21 05:14 [place] % (Auto) 7.9 % (0.0-7.3) H 10/07/21 05:14 Eos % (Auto) 0.4 % (0.0-4.3) 10/07/21 05:14 Baso % (Auto) 1.1 % (0.0-1.8) 10/07/21 05:14 Lymph # (Auto) 0.7 K/mm3 (1.2-5.4) L 10/07/21 05:14 [place] # (Auto) 0.5 K/mm3 (0.0-0.8) 10/07/21 05:14 Eos # (Auto) 0.0 K/mm3 (0.0-0.4) 10/07/21 05:14 Baso # (Auto) 0.1 K/mm3 (0.0-0.1) 10/07/21 05:14 Seg Neutrophils % 80.2 % (40.0-70.0) H 10/07/21 05:14 Seg Neutrophils # 5.4 K/mm3 (1.8-7.7) 10/07/21 05:14 PT 16.6 Sec. (12.2-14.9) H 10/05/21 21:39 INR 1.20 (0.87-1.13) H 10/05/21 21:39 Sodium 144 mmol/L (137-145) 10/07/21 05:14 Potassium 4.4 mmol/L (3.6-5.0) 10/07/21 05:14 Chloride 104.4 mmol/L (98-107) 10/07/21 05:14 Carbon Dioxide 23 mmol/L (22-30) 10/07/21 05:14 Anion Gap 21 mmol/L 10/07/21 05:14 BUN 123 mg/dL (9-20) H 10/07/21 05:14 Creatinine 10.9 mg/dL (0.8-1.3) H 10/07/21 05:14 Estimated GFR 6 ml/min 10/07/21 05:14 BUN/Creatinine Ratio 11 % 10/07/21 05:14 Glucose 119 mg/dL (75-100) H 10/07/21 05:14 Calcium 8.8 mg/dL (8.4-10.2) 10/07/21 05:14 Total Bilirubin 0.50 mg/dL (0.1-1.2) 10/05/21 22:41 AST 11 units/L (5-40) 10/05/21 22:41 ALT < 5 units/L (7-56) L 10/05/21 22:41 Alkaline Phosphatase 64 units/L (35-129) 10/05/21 22:41 Ammonia 14.0 umol/L (25-60) L 10/05/21 22:41 Total Protein 8.3 g/dL (6.3-8.2) H 10/05/21 22:41 Albumin 4.9 g/dL (3.9-5) 10/05/21 22:41 Albumin/Globulin Ratio 1.4 % 10/05/21 22:41 Triglycerides 382 mg/dL (2-149) H 10/06/21 04:21 Cholesterol 273 mg/dL (50-199) H 10/06/21 04:21 LDL Cholesterol Direct 151 mg/dL (50-130) H 10/06/21 04:21 HDL Cholesterol 27 mg/dL (40-59) L 10/06/21 04:21 Cholesterol/HDL Ratio 10.11 % 10/06/21 04:21 PTH Intact 333.5 pg/mL (15-65) H 10/07/21 05:14 Urine Color Yellow (Yellow) 10/06/21 Unknown Urine Turbidity Clear (Clear) 10/06/21 Unknown Urine pH 5.0 (5.0-7.0) 10/06/21 Unknown Ur Specific [place] 1.015 (1.003-1.030) 10/06/21 Unknown Urine Protein <15 mg/dl mg/dL (Negative) 10/06/21 Unknown Urine Glucose (UA) Neg mg/dL (Negative) 10/06/21 Unknown Urine Ketones Neg mg/dL (Negative) 10/06/21 Unknown Urine Blood Sm (Negative) 10/06/21 Unknown Urine Nitrite Neg (Negative) 10/06/21 Unknown Urine Bilirubin Neg (Negative) 10/06/21 Unknown Urine Urobilinogen < 2.0 mg/dL (<2.0) 10/06/21 Unknown Ur Leukocyte Esterase Neg (Negative) 10/06/21 Unknown Urine WBC (Auto) 2.0 /HPF (0.0-6.0) 10/06/21 Unknown Urine RBC (Auto) 4.0 /HPF (0.0-6.0) 10/06/21 Unknown U Epithel Cells (Auto) 3.0 /HPF (0-13.0) 10/06/21 Unknown Urine Bacteria (Auto) 1+ /HPF (Negative) 10/06/21 Unknown Hyaline Casts 14 /LPF 10/06/21 Unknown Urine Mucus Few /HPF 10/06/21 Unknown Urine Yeast (Budding) 2+ /HPF 10/06/21 Unknown Urine Creatinine 234.3 mg/dL (0.1-20.0) H 10/06/21 14:04 Protein/Creatinin Ratio 0.12 10/06/21 14:04 Urine Total Protein 28 mg/dL (5-11.8) H 10/06/21 14:04 Salicylates < 0.3 mg/dL (2.8-20.0) L 10/05/21 22:41 Urine Opiates Screen Presumptive negative 10/06/21 Unknown Urine Methadone Screen Presumptive negative 10/06/21 Unknown Ur Barbiturates Screen Presumptive negative 10/06/21 Unknown Ur Phencyclidine Scrn Presumptive negative 10/06/21 Unknown Ur Amphetamines Screen Presumptive negative 10/06/21 Unknown U Benzodiazepines Scrn Presumptive negative 10/06/21 Unknown Urine Cocaine Screen Presumptive negative 10/06/21 Unknown U Marijuana (THC) Screen Presumptive negative 10/06/21 Unknown Drugs of Abuse Note Disclamer 10/06/21 Unknown Plasma/Serum Alcohol < 0.01 % (0-0.07) 10/05/21 21:39 Hepatitis A IgM Ab Non-reactive (NonReactive) 10/06/21 09:12 Hep Bs Antigen Non-reactive (Negative) 10/06/21 09:12 Hep B Core IgM Ab Non-reactive (NonReactive) 10/06/21 09:12 Hepatitis C Antibody Non-reactive (NonReactive) 10/06/21 09:12 Paez/IV: Voiding Method Incontinent Active Medications - Current Medications Current Medications: Generic Name Dose Route Start Last Admin Trade Name Freq PRN Reason Stop Dose Admin Acetaminophen 650 mg 10/06/21 01:42 Acetaminophen 325 Mg Tab PO Q4H PRN Pain MILD(1-3)/Fever >100.5/MARROQUIN Aspirin 325 mg 10/06/21 10:00 10/07/21 09:56 Aspirin 325 Mg Tab PO 325 mg QDAY FREDI Administration Atorvastatin Calcium 40 mg 10/06/21 22:00 10/06/21 21:34 Atorvastatin 40 Mg Tab PO 40 mg QHS FREDI Administration Bisacodyl 10 mg 10/06/21 01:42 Bisacodyl 10 Mg Rect Supp MI QDAY PRN Constipation Carvedilol 6.25 mg 10/07/21 10:00 10/07/21 09:56 Carvedilol 6.25 Mg Tab PO 6.25 mg BID FREDI Administration Dextrose 50 ml 10/06/21 01:42 Dextrose 50% In Water (25gm) 50 Ml Syringe IV Q30MIN PRN Hypoglycemia Protocol Famotidine 20 mg 10/07/21 10:00 10/07/21 09:56 Famotidine 20 Mg Tab PO 20 mg DAILY FREDI Administration Heparin Sodium (Porcine) 5,000 unit 10/06/21 14:00 10/07/21 06:29 Heparin 5,000 Unit/1 Ml Vial SUB-Q Not Given Q8HR FREDI Hydralazine HCl 10 mg 10/06/21 18:38 10/07/21 06:28 Hydralazine 20 Mg/1 Ml Inj IV 10 mg Q4HR PRN Administration Hypertension Sodium Chloride 100 mls @ 999 mls/hr 10/06/21 02:34 Nacl 0.9% IV DESHAWN PRN Hypotension Sodium Chloride 1,000 mls @ 100 mls/hr 10/06/21 15:00 10/07/21 02:37 Nacl 0.9% 1000 Ml IV 100 mls/hr DIRECT FREDI Administration Magnesium Hydroxide 30 ml 10/06/21 01:42 Magnesium Hydroxide (Mom) Oral Liqd Udc PO Q4H PRN Constipation Metoclopramide HCl 2.5 mg 10/06/21 01:59 Metoclopramide 10 Mg/10 Ml Oral Liqd PO Q6H PRN Nausea And Vomiting Nifedipine 60 mg 10/07/21 10:00 10/07/21 09:56 Nifedipine Xl 60 Mg Tab PO 60 mg DAILY FREDI Administration Ondansetron HCl 4 mg 10/06/21 01:42 Ondansetron 4 Mg/2 Ml Inj IV Q8H PRN Nausea And Vomiting Promethazine HCl 25 mg 10/06/21 01:42 Promethazine 25 Mg Rect Supp MI Q6H PRN Nausea And Vomiting Sodium Chloride 10 ml 10/06/21 10:00 10/07/21 09:57 Sodium Chloride 0.9% 10 Ml Flush Syringe IV 10 ml BID FREDI Administration Sodium Chloride 10 ml 10/06/21 01:42 Sodium Chloride 0.9% 10 Ml Flush Syringe IV PRN PRN LINE FLUSH Valsartan 160 mg 10/07/21 10:00 10/07/21 09:56 Valsartan 160mg Tab PO 160 mg QDAY FREDI Administration Nutrition/Malnutrition Assess - Dietary Evaluation Nutrition/Malnutrition Findings: Nutrition Notes Start: 10/06/21 16:50 Freq: Status: Active Protocol: Document 10/06/21 16:50 NOEL (Rec: 10/06/21 17:01 NOEL [id number]) Nutrition Notes Need for Assessment generated from: MD Order,dock operator,MST, Education Initial or Follow up Assessment Current Diagnosis Acute Kidney Injury, Hypertension,Stroke Other Pertinent Diagnosis AMS, HARDIK+HD, Hyperkalemia. Current Diet Pureed Diet (since D 10/06). Labs/Tests 10/06: K 6.1, CO2 19, BUN 224, Crea 19.7, Glu 64, Ca 11.0. Pertinent Medications 10/06: Nutritionally unremarkable. 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 Weight Status Appropriate Subjective/Other Information RD consult for nutrition education assessment. No reports available on Pt's PO intake of meals at the time , will assess at F/U. DOG BREEDER note on 10/06/21 14:53: Patient demonstrates a delayed oral transit time with a swallow reflex of 1 second. No evidence of aspiration was identified. However, per nurse , the patient's family reported that the patient's baseline intake is poor. Recommend a pureed diet with thins with an alternative method of nutrition. - END OF NOTE. Pt is on Nasal Cannula, O2 saturation @ 96%, according to Physical Assessment History notes. Pt shows no signs of concer for risk of malnutrition at the time, according to Physical Assessment History notes. Pt has missing teeth, according to Physical Assessment History notes. Pt is a SNF reesident, according to Progress notes. Pt still in critical condition , not a candidate for Nutrition Education at the time, will assess feasibility on F/U. Percent of energy/protein needs met: Prescribed Pureed Diet provides for energy/protein needs (1,804 Kcal/77 g) during LOS. Burn Absent Trauma Absent GI Symptoms None Food Allergy No Skin Integrity/Comment Unspecified dryness. Minimum of two criteria No Fluid Accumulation N/A Reduced Rn Camp Strength N/A (non-severe) Protein-Calorie Malnutrition N\A #1 Nutrition Diagnosis No nutrition diagnosis at this time Comments: Will assess Pt's PO intake of meals at F/U. Is patient on ventilator? No Is Patient Ambulatory and/or Out of Bed No REE-([facility]-confined to bed) 1893.732 Kcal/Kg value to use for calculation 31 Approximate Energy Requirements Using 2320 kcal/Kg Calculation Used for Recommendations Kcal/kg Additional Notes Protein: >1.2 g/Kg IBW; >103 g /day. Fluids: 1 ml/Kcal, or as per MD. Nutrition Intervention Change Diet Order: Continue Pureed Diet. Follow-Up By: 10/13/21 Additional Comments Nutrition education will be provided at F/U, if feasible. Continue monitoring food tolerance, %PO intake of meals , and BM. <FEMI RICHTER - Last Filed: 10/07/21 17:35> Assessment and Plan Assessment and plan: I saw and evaluated the patient. I agree with the findings and the plan of care as documented in the Nurse Practitioner's~note, with the following corrections and additions. Presumed Encephalomalcia based on MRI, Patient is from a nursing facility it appears, will anticipate discharge over the or sunday based on clinically progression Hospitalist Physical - Constitutional Vitals: Temp Pulse Resp BP Pulse Ox 97.3 F L 71 16 113/57 96 10/07/21 03:29 10/07/21 13:45 10/07/21 13:45 10/07/21 13:45 10/07/21 12:31 Results - Labs CBC & Chem 7: 10/07/21 05:14 10/07/21 05:14 Labs: Laboratory Last Values WBC 6.8 K/mm3 (4.5-11.0) 10/07/21 05:14 RBC 3.37 M/mm3 (3.65-5.03) L 10/07/21 05:14 Hgb 10.0 gm/dl (11.8-15.2) L 10/07/21 05:14 Hct 30.1 % (35.5-45.6) L D 10/07/21 05:14 MCV 89 fl (84-94) 10/07/21 05:14 MCH 30 pg (28-32) 10/07/21 05:14 MCHC 33 % (32-34) 10/07/21 05:14 RDW 15.2 % (13.2-15.2) 10/07/21 05:14 Plt Count 117 K/mm3 (140-440) L 10/07/21 05:14 Lymph % (Auto) 10.4 % (13.4-35.0) L 10/07/21 05:14 [place] % (Auto) 7.9 % (0.0-7.3) H 10/07/21 05:14 Eos % (Auto) 0.4 % (0.0-4.3) 10/07/21 05:14 Baso % (Auto) 1.1 % (0.0-1.8) 10/07/21 05:14 Lymph # (Auto) 0.7 K/mm3 (1.2-5.4) L 10/07/21 05:14 [place] # (Auto) 0.5 K/mm3 (0.0-0.8) 10/07/21 05:14 Eos # (Auto) 0.0 K/mm3 (0.0-0.4) 10/07/21 05:14 Baso # (Auto) 0.1 K/mm3 (0.0-0.1) 10/07/21 05:14 Seg Neutrophils % 80.2 % (40.0-70.0) H 10/07/21 05:14 Seg Neutrophils # 5.4 K/mm3 (1.8-7.7) 10/07/21 05:14 PT 16.6 Sec. (12.2-14.9) H 10/05/21 21:39 INR 1.20 (0.87-1.13) H 10/05/21 21:39 Sodium 144 mmol/L (137-145) 10/07/21 05:14 Potassium 4.4 mmol/L (3.6-5.0) 10/07/21 05:14 Chloride 104.4 mmol/L (98-107) 10/07/21 05:14 Carbon Dioxide 23 mmol/L (22-30) 10/07/21 05:14 Anion Gap 21 mmol/L 10/07/21 05:14 BUN 123 mg/dL (9-20) H 10/07/21 05:14 Creatinine 10.9 mg/dL (0.8-1.3) H 10/07/21 05:14 Estimated GFR 6 ml/min 10/07/21 05:14 BUN/Creatinine Ratio 11 % 10/07/21 05:14 Glucose 119 mg/dL (75-100) H 10/07/21 05:14 Calcium 8.8 mg/dL (8.4-10.2) 10/07/21 05:14 Total Bilirubin 0.50 mg/dL (0.1-1.2) 10/05/21 22:41 AST 11 units/L (5-40) 10/05/21 22:41 ALT < 5 units/L (7-56) L 10/05/21 22:41 Alkaline Phosphatase 64 units/L (35-129) 10/05/21 22:41 Ammonia 14.0 umol/L (25-60) L 10/05/21 22:41 Total Protein 8.3 g/dL (6.3-8.2) H 10/05/21 22:41 Albumin 4.9 g/dL (3.9-5) 10/05/21 22:41 Albumin/Globulin Ratio 1.4 % 10/05/21 22:41 Triglycerides 382 mg/dL (2-149) H 10/06/21 04:21 Cholesterol 273 mg/dL (50-199) H 10/06/21 04:21 LDL Cholesterol Direct 151 mg/dL (50-130) H 10/06/21 04:21 HDL Cholesterol 27 mg/dL (40-59) L 10/06/21 04:21 Cholesterol/HDL Ratio 10.11 % 10/06/21 04:21 PTH Intact 333.5 pg/mL (15-65) H 10/07/21 05:14 Urine Color Yellow (Yellow) 10/06/21 Unknown Urine Turbidity Clear (Clear) 10/06/21 Unknown Urine pH 5.0 (5.0-7.0) 10/06/21 Unknown Ur Specific [place] 1.015 (1.003-1.030) 10/06/21 Unknown Urine Protein <15 mg/dl mg/dL (Negative) 10/06/21 Unknown Urine Glucose (UA) Neg mg/dL (Negative) 10/06/21 Unknown Urine Ketones Neg mg/dL (Negative) 10/06/21 Unknown Urine Blood Sm (Negative) 10/06/21 Unknown Urine Nitrite Neg (Negative) 10/06/21 Unknown Urine Bilirubin Neg (Negative) 10/06/21 Unknown Urine Urobilinogen < 2.0 mg/dL (<2.0) 10/06/21 Unknown Ur Leukocyte Esterase Neg (Negative) 10/06/21 Unknown Urine WBC (Auto) 2.0 /HPF (0.0-6.0) 10/06/21 Unknown Urine RBC (Auto) 4.0 /HPF (0.0-6.0) 10/06/21 Unknown U Epithel Cells (Auto) 3.0 /HPF (0-13.0) 10/06/21 Unknown Urine Bacteria (Auto) 1+ /HPF (Negative) 10/06/21 Unknown Hyaline Casts 14 /LPF 10/06/21 Unknown Urine Mucus Few /HPF 10/06/21 Unknown Urine Yeast (Budding) 2+ /HPF 10/06/21 Unknown Urine Creatinine 234.3 mg/dL (0.1-20.0) H 10/06/21 14:04 Protein/Creatinin Ratio 0.12 10/06/21 14:04 Urine Total Protein 28 mg/dL (5-11.8) H 10/06/21 14:04 Salicylates < 0.3 mg/dL (2.8-20.0) L 10/05/21 22:41 Urine Opiates Screen Presumptive negative 10/06/21 Unknown Urine Methadone Screen Presumptive negative 10/06/21 Unknown Ur Barbiturates Screen Presumptive negative 10/06/21 Unknown Ur Phencyclidine Scrn Presumptive negative 10/06/21 Unknown Ur Amphetamines Screen Presumptive negative 10/06/21 Unknown U Benzodiazepines Scrn Presumptive negative 10/06/21 Unknown Urine Cocaine Screen Presumptive negative 10/06/21 Unknown U Marijuana (THC) Screen Presumptive negative 10/06/21 Unknown Drugs of Abuse Note Disclamer 10/06/21 Unknown Plasma/Serum Alcohol < 0.01 % (0-0.07) 10/05/21 21:39 Hepatitis A IgM Ab Non-reactive (NonReactive) 10/06/21 09:12 Hep Bs Antigen Non-reactive (Negative) 10/06/21 09:12 Hep B Core IgM Ab Non-reactive (NonReactive) 10/06/21 09:12 Hepatitis C Antibody Non-reactive (NonReactive) 10/06/21 09:12 Paez/IV: Voiding Method Incontinent Active Medications - Current Medications Current Medications: Generic Name Dose Route Start Last Admin Trade Name Freq PRN Reason Stop Dose Admin Acetaminophen 650 mg 10/06/21 01:42 Acetaminophen 325 Mg Tab PO Q4H PRN Pain MILD(1-3)/Fever >100.5/MARROQUIN Aspirin 81 mg 10/08/21 10:00 Aspirin 81 Mg Tab Chew PO QDAY FREDI Atorvastatin Calcium 40 mg 10/06/21 22:00 10/06/21 21:34 Atorvastatin 40 Mg Tab PO 40 mg QHS FREDI Administration Bisacodyl 10 mg 10/06/21 01:42 Bisacodyl 10 Mg Rect Supp MI QDAY PRN Constipation Carvedilol 6.25 mg 10/07/21 10:00 10/07/21 09:56 Carvedilol 6.25 Mg Tab PO 6.25 mg BID FREDI Administration Dextrose 50 ml 10/06/21 01:42 Dextrose 50% In Water (25gm) 50 Ml Syringe IV Q30MIN PRN Hypoglycemia Protocol Famotidine 20 mg 10/07/21 10:00 10/07/21 09:56 Famotidine 20 Mg Tab PO 20 mg DAILY FREDI Administration Heparin Sodium (Porcine) 5,000 unit 10/06/21 14:00 10/07/21 13:52 Heparin 5,000 Unit/1 Ml Vial SUB-Q 5,000 unit Q8HR FREDI Administration Hydralazine HCl 10 mg 10/06/21 18:38 10/07/21 06:28 Hydralazine 20 Mg/1 Ml Inj IV 10 mg Q4HR PRN Administration Hypertension Sodium Chloride 100 mls @ 999 mls/hr 10/06/21 02:34 Nacl 0.9% IV DESHAWN PRN Hypotension Sodium Chloride 1,000 mls @ 100 mls/hr 10/06/21 15:00 10/07/21 02:37 Nacl 0.9% 1000 Ml IV 100 mls/hr DIRECT FREDI Administration Magnesium Hydroxide 30 ml 10/06/21 01:42 Magnesium Hydroxide (Mom) Oral Liqd Udc PO Q4H PRN Constipation Metoclopramide HCl 2.5 mg 10/06/21 01:59 Metoclopramide 10 Mg/10 Ml Oral Liqd PO Q6H PRN Nausea And Vomiting Nifedipine 60 mg 06/24/22 10:00 10/07/21 09:56 Nifedipine Xl 60 Mg Tab PO 60 mg DAILY FREDI Administration Ondansetron HCl 4 mg 10/06/21 01:42 Ondansetron 4 Mg/2 Ml Inj IV Q8H PRN Nausea And Vomiting Promethazine HCl 25 mg 10/06/21 01:42 Promethazine 25 Mg Rect Supp MI Q6H PRN Nausea And Vomiting Sodium Chloride 10 ml 10/06/21 10:00 10/07/21 09:57 Sodium Chloride 0.9% 10 Ml Flush Syringe IV 10 ml BID FREDI Administration Sodium Chloride 10 ml 10/06/21 01:42 Sodium Chloride 0.9% 10 Ml Flush Syringe IV PRN PRN LINE FLUSH Valsartan 160 mg 10/07/21 10:00 10/07/21 09:56 Valsartan 160mg Tab PO 160 mg QDAY FREDI Administration Nutrition/Malnutrition Assess - Dietary Evaluation Nutrition/Malnutrition Findings: Nutrition Notes Start: 10/06/21 16:50 Freq: Status: Active Protocol: Document 10/06/21 16:50 NOEL (Rec: 10/06/21 17:01 NOEL [id number]) Nutrition Notes Need for Assessment generated from: MD Order,dock operator,MST, Education Initial or Follow up Assessment Current Diagnosis Acute Kidney Injury, Hypertension,Stroke Other Pertinent Diagnosis AMS, HARDIK+HD, Hyperkalemia. Current Diet Pureed Diet (since D 10/06). Labs/Tests 10/06: K 6.1, CO2 19, BUN 224, Crea 19.7, Glu 64, Ca 11.0. Pertinent Medications 10/06: Nutritionally unremarkable. 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 Weight Status Appropriate Subjective/Other Information RD consult for nutrition education assessment. No reports available on Pt's PO intake of meals at the time , will assess at F/U. DOG BREEDER note on 10/06/21 14:53: Patient demonstrates a delayed oral transit time with a swallow reflex of 1 second. No evidence of aspiration was identified. However, per nurse , the patient's family reported that the patient's baseline intake is poor. Recommend a pureed diet with thins with an alternative method of nutrition. - END OF NOTE. Pt is on Nasal Cannula, O2 saturation @ 96%, according to Physical Assessment History notes. Pt shows no signs of concer for risk of malnutrition at the time, according to Physical Assessment History notes. Pt has missing teeth, according to Physical Assessment History notes. Pt is a SNF reesident, according to Progress notes. Pt still in critical condition , not a candidate for Nutrition Education at the time, will assess feasibility on F/U. Percent of energy/protein needs met: Prescribed Pureed Diet provides for energy/protein needs (1,804 Kcal/77 g) during LOS. Burn Absent Trauma Absent GI Symptoms None Food Allergy No Skin Integrity/Comment Unspecified dryness. Minimum of two criteria No Fluid Accumulation N/A Reduced Rn Camp Strength N/A (non-severe) Protein-Calorie Malnutrition N\A #1 Nutrition Diagnosis No nutrition diagnosis at this time Comments: Will assess Pt's PO intake of meals at F/U. Is patient on ventilator? No Is Patient Ambulatory and/or Out of Bed No REE-([facility]-confined to bed) [phone] Kcal/Kg value to use for calculation 31 Approximate Energy Requirements Using 2320 kcal/Kg Calculation Used for Recommendations Kcal/kg Additional Notes Protein: >1.2 g/Kg IBW; >103 g /day. Fluids: 1 ml/Kcal, or as per MD. Nutrition Intervention Change Diet Order: Continue Pureed Diet. Follow-Up By: 10/13/21 Additional Comments Nutrition education will be provided at F/U, if feasible. Continue monitoring food tolerance, %PO intake of meals , and BM.
--- NOTE | 2021-10-07 13:39 | Electrocardiograph Report ---
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
--- NOTE | 2021-10-07 13:44 | Electrocardiograph Report ---
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
--- NOTE | 2021-10-07 18:05 | Progress Note ---
Assessment and Plan # Acute Kidney Injury/Kidney Failure: creatinine 18, BUN>200 with hyperkalemia, acidosis, likely uremic effects. Noted to have creatinine 1.2 earlier this year so suspect acute kidney injury, needs full workup - STAT HD started 10/06 for hyperkalemia, azotemia/uremia; continue daily HD x3 days for now given uremia/azotemia and need to avoid disequilibrium - renal ultrasound acutely WNL, no obstruction - urinalysis reviewed, check serologies to rule out GN injury - note PTH high, may have secondary to underlying CKD - strict Is/Os - consider IVF challenges as may have pre-renal injury - assess for renal recovery as able - avoid nephrotoxins - hold diuretics, EMILIANO/ARB for now # HTN: BP stable currently, restarted on nifedipine per primary team due to HTN in AM. Avoid ARB for now given hyperkalemia, HARDIK. Can restart once HARDIK im proves or clearly CKD progression # Altered Mentation: unknown baseline, may have uremic effects # CVA: care per primary, neurology Subjective Date of service: 10/07/21 Interval history: Continues to cover face with blankets, appears altered still Objective - Exam Narrative Exam: General appearance: no distress, frail EENT: ATNC Neck: Present: neck supple Respiratory: Clear to Ascultation, Normal Exam Heart: regular Gastrointestinal: Present: normoactive bowel sounds Integumentary: no rash, cool/clammy Neurologic: no asterixis, confused - Vital Signs Vital signs: Vital Signs - 12hr 10/07/21 10/07/21 10/07/21 06:15 06:28 06:31 Pulse Rate 68 67 73 Respiratory 14 10 L Rate Blood Pressure 179/95 179/95 141/71 O2 Sat by Pulse 100 100 Oximetry 10/07/21 10/07/21 10/07/21 06:45 07:00 07:15 Pulse Rate 70 86 78 Respiratory 18 19 26 H Rate Blood Pressure 141/71 168/85 168/85 O2 Sat by Pulse 100 99 100 Oximetry 10/07/21 10/07/21 10/07/21 07:30 07:45 08:00 Pulse Rate 73 81 75 Respiratory 21 18 14 Rate Blood Pressure 149/81 149/81 162/83 O2 Sat by Pulse 97 100 100 Oximetry 10/07/21 10/07/21 10/07/21 08:15 09:43 09:45 Pulse Rate 73 70 71 Respiratory 13 13 10 L Rate Blood Pressure 162/83 162/83 151/80 O2 Sat by Pulse 100 99 99 Oximetry 10/07/21 10/07/21 10/07/21 09:56 10:00 10:15 Pulse Rate 66 64 70 Respiratory 10 L 13 Rate Blood Pressure 151/80 149/75 151/80 O2 Sat by Pulse 99 100 Oximetry 10/07/21 10/07/21 10/07/21 10:30 10:45 11:00 Pulse Rate 68 74 73 Respiratory 11 L 18 12 Rate Blood Pressure 127/66 127/66 131/73 O2 Sat by Pulse 99 99 97 Oximetry 10/07/21 10/07/21 10/07/21 11:15 11:31 11:45 Pulse Rate 84 80 73 Respiratory 14 17 19 Rate Blood Pressure 120/65 135/65 135/65 O2 Sat by Pulse 85 100 Oximetry 10/07/21 10/07/21 10/07/21 12:01 12:15 12:31 Pulse Rate 62 60 62 Respiratory 12 12 12 Rate Blood Pressure 105/51 105/51 101/51 O2 Sat by Pulse 100 99 96 Oximetry 10/07/21 10/07/21 10/07/21 12:45 13:00 13:15 Pulse Rate 72 63 68 Respiratory 11 L 11 L 18 Rate Blood Pressure 101/51 103/54 103/54 O2 Sat by Pulse Oximetry 10/07/21 10/07/21 13:30 13:45 Pulse Rate 67 71 Respiratory 18 16 Rate Blood Pressure 113/57 113/57 O2 Sat by Pulse Oximetry - Lab 10/07/21 05:14 10/07/21 05:14 Most recent lab results Calcium 8.8 mg/dL (8.4-10.2) 10/07/21 05:14 Urine Creatinine 234.3 mg/dL (0.1-20.0) H 10/06/21 14:04 Urine Total Protein 28 mg/dL (5-11.8) H 10/06/21 14:04 Medications & Allergies - Medications Allergies/Adverse Reactions: Allergies No Known Allergies Allergy (Verified 05/09/21 13:32) Home Medications: Home Medications Medication Instructions Recorded Confirmed Last Taken Type Furosemide [Lasix TAB] 40 mg PO QDAY #30 tablet 05/10/21 Unknown Rx carvediloL [Coreg] 6.25 mg PO BID #60 tablet 05/11/21 Unknown Rx NIFEdipine [Nifedipine ER] 60 mg PO DAILY #30 tab 05/13/21 Unknown Rx Valsartan [Diovan] 160 mg PO QDAY #30 tablet 05/13/21 Unknown Rx Active Medications: Generic Name Dose Route Start Last Admin Trade Name Freq PRN Reason Stop Dose Admin Acetaminophen 650 mg 10/06/21 01:42 Acetaminophen 325 Mg Tab PO Q4H PRN Pain MILD(1-3)/Fever >100.5/MARROQUIN Aspirin 81 mg 10/08/21 10:00 Aspirin 81 Mg Tab Chew PO QDAY FREDI Atorvastatin Calcium 40 mg 10/06/21 22:00 10/06/21 21:34 Atorvastatin 40 Mg Tab PO 40 mg QHS FREDI Administration Bisacodyl 10 mg 10/06/21 01:42 Bisacodyl 10 Mg Rect Supp [place] QDAY PRN Constipation Carvedilol 6.25 mg 10/07/21 10:00 10/07/21 09:56 Carvedilol 6.25 Mg Tab PO 6.25 mg BID FREDI Administration Dextrose 50 ml 10/06/21 01:42 Dextrose 50% In Water (25gm) 50 Ml Syringe IV Q30MIN PRN Hypoglycemia Protocol Famotidine 20 mg 10/07/21 10:00 10/07/21 09:56 Famotidine 20 Mg Tab PO 20 mg DAILY FREDI Administration Heparin Sodium (Porcine) 5,000 unit 10/06/21 14:00 10/07/21 13:52 Heparin 5,000 Unit/1 Ml Vial SUB-Q 5,000 unit Q8HR FREDI Administration Hydralazine HCl 10 mg 10/06/21 18:38 10/07/21 06:28 Hydralazine 20 Mg/1 Ml Inj IV 10 mg Q4HR PRN Administration Hypertension Sodium Chloride 100 mls @ 999 mls/hr 10/06/21 02:34 Nacl 0.9% IV DESHAWN PRN Hypotension Sodium Chloride 1,000 mls @ 100 mls/hr 10/06/21 15:00 10/07/21 02:37 Nacl 0.9% 1000 Ml IV 100 mls/hr DIRECT FREDI Administration Magnesium Hydroxide 30 ml 10/06/21 01:42 Magnesium Hydroxide (Mom) Oral Liqd Udc PO Q4H PRN Constipation Metoclopramide HCl 2.5 mg 10/06/21 01:59 Metoclopramide 10 Mg/10 Ml Oral Liqd PO Q6H PRN Nausea And Vomiting Nifedipine 60 mg 10/07/21 10:00 10/07/21 09:56 Nifedipine Xl 60 Mg Tab PO 60 mg DAILY FREDI Administration Ondansetron HCl 4 mg 10/06/21 01:42 Ondansetron 4 Mg/2 Ml Inj IV Q8H PRN Nausea And Vomiting Promethazine HCl 25 mg 10/06/21 01:42 Promethazine 25 Mg Rect Supp [place] Q6H PRN Nausea And Vomiting Sodium Chloride 10 ml 10/06/21 10:00 10/07/21 09:57 Sodium Chloride 0.9% 10 Ml Flush Syringe IV 10 ml BID FREDI Administration Sodium Chloride 10 ml 10/06/21 01:42 Sodium Chloride 0.9% 10 Ml Flush Syringe IV PRN PRN LINE FLUSH Valsartan 160 mg 10/07/21 10:00 10/07/21 09:56 Valsartan 160mg Tab PO 160 mg QDAY FREDI Administration
[2021-10-08] MEDS: hydrALAZINE 20 MG/1 ML INJ IV PRN (00:41)
[2021-10-08 05:16] LABS: Hematocrit 32.2 % (35.5-45.6); Hemoglobin 10.4 gm/dl (11.8-15.2); Mean Corpuscular HGB Conc 32 % (32-34); Mean Corpuscular Volume 90 fl (84-94); Platelet Count 116 K/mm3 (140-440); Red Blood Count 3.59 M/mm3 (3.65-5.03); Red Cell Distribution Width 15.1 % (13.2-15.2)
[2021-10-08] MEDS: HEPARIN 5,000 UNIT/1 ML VIAL SUB-Q SCH ×3 (05:58→22:26)
[2021-10-08] MEDS: FAMOTIDINE 20 MG TAB PO SCH (10:36)
[2021-10-08] MEDS: carvediloL 6.25 MG TAB PO SCH ×2 (10:36→22:26)
[2021-10-08] MEDS: NIFEdipine XL 60 MG TAB PO SCH (10:36)
[2021-10-08] MEDS: ASPIRIN 81 MG TAB CHEW PO SCH (10:36)
--- NOTE | 2021-10-08 10:51 | Progress Note ---
Assessment and Plan 71-year-old male resident of [facility] with known history of hypertension , CHF sent to the emergency room for evaluation of changes in mental status since yesterday. Patient was said not to be his normal self over the past 24 hours. Patient unable to give any good history at this time most of the information was obtained from the ER staff. Work-up in the emergency room , labs were significant for leukocytosis of 11.3, potassium of 7.7, BUN to 216 and creatinine of 18.1. EKG shows some peaked T waves. CT scan of the head consistent with features of microvascular ischemia bilateral lacunar infarcts within the basal ganglia and left central semiovale. Area of hypoattenuation involving the right temporal lobe. Subacute ischemia is not excluded. MRI recommended for further evaluation. Teleneurology consulted by the ER physician and recommendation was to have CVA work-up. Pipe Covering Molder was also consulted regarding lab findings and EKG findings and admitted dialysis was recommended. Patient awake still confused, not oriented.Says has history of smoking. However based on patients mental status does not know how reliable it is. Denies chest pain, shortness of breath. Patient is on room air. O2 saturation 99%. No acute respiratory distress. Patient afebrile. No leukocytosis. Blood pressure 178/85, Pulse 68, Respirations 18. Patient is on Nifedipine, Hydralogine, coreg.Blood pressure management as per primary care. Chest ray done 10/06/21 reported Mild bibasilar linear atelectatic change. Mild chronic changes. No definite pneumonic infiltrates or effusions. No pneumothorax. Patient is on S/C Heparin and famotidine. - Patient Problems (1) CVA (cerebral vascular accident) Current Visit: Yes Status: Acute Plan to address problem: Management as per primary care and neurology. (2) Altered mental status Current Visit: Yes Status: Acute Plan to address problem: Management as per primary care. (3) HARDIK (acute kidney injury) Current Visit: Yes Status: Acute Plan to address problem: Management as per nephrology. (4) Bilateral lower leg cellulitis Current Visit: No Status: Acute Plan to address problem: Recommend to consult infectious diseases. Subjective Date of service: 10/08/21 Interval history: 71-year-old male resident of [employer] [facility] with known history of hypertension , CHF sent to the emergency room for evaluation of changes in mental status since yesterday. Patient was said not to be his normal self over the past 24 hours. Patient unable to give any good history at this time most of the information was obtained from the ER staff. Work-up in the emergency room , labs were significant for leukocytosis of 11.3, potassium of 7.7, BUN to 216 and creatinine of 18.1. EKG shows some peaked T waves. CT scan of the head consistent with features of microvascular ischemia bilateral lacunar infarcts within the basal ganglia and left central semiovale. Area of hypoattenuation involving the right temporal lobe. Subacute ischemia is not excluded. MRI recommended for further evaluation. Teleneurology consulted by the ER physician and recommendation was to have CVA work-up. Pipe Covering Molder was also consulted regarding lab findings and EKG findings and admitted dialysis was recommended. Patient awake still confused, not oriented.Says has history of smoking. However based on patients mental status does not know how reliable it is. Denies chest pain, shortness of breath. Patient is on room air. O2 saturation 99%. No acute respiratory distress. Patient afebrile. No leukocytosis. Blood pressure 178/85, Pulse 68, Respirations 18. Patient is on Nifedipine, Hydralogine, coreg.Blood pressure management as per primary care. Chest ray done 10/06/21 reported Mild bibasilar linear atelectatic change. Mild chronic changes. No definite pneumonic infiltrates or effusions. No pneumothorax. Patient is on S/C Heparin and famotidine. Objective Vital Signs - 12hr 10/07/21 10/08/21 10/08/21 23:45 00:41 01:15 Temperature 98.5 F Pulse Rate 60 62 61 Respiratory 18 Rate Blood Pressure 172/92 172/92 Blood Pressure [Right] O2 Sat by Pulse 100 Oximetry 10/08/21 10/08/21 10/08/21 04:00 04:45 05:00 Temperature 98.6 F Pulse Rate 78 77 Respiratory 18 Rate Blood Pressure 149/95 Blood Pressure [Right] O2 Sat by Pulse 98 96 Oximetry 10/08/21 10/08/21 08:08 08:26 Temperature 98.1 F Pulse Rate 68 Respiratory 18 Rate Blood Pressure 178/85 Blood Pressure 178/85 [Right] O2 Sat by Pulse 99 Oximetry Constitutional: no acute distress, alert, other (Confused. Not oriented.) Eyes: non-icteric ENT: oropharynx moist Neck: supple, no lymphadenopathy Effort: normal Ascultation: Bilateral: diminished breath sounds Cardiovascular: regular rate and rhythm Gastrointestinal: normoactive bowel sounds, soft, non-tender Integumentary: cellulitis Extremities: other (Stasis dermatitis.) Neurologic: pupils equal and round, unable to assess Psychiatric: other (Confused. Not oriented.) CBC and BMP: 10/08/21 04:56 10/08/21 04:56 ABG, PT/INR, D-dimer: PT/INR, D-dimer PT 16.6 Sec. (12.2-14.9) H 10/05/21 21:39 INR 1.20 (0.87-1.13) H 10/05/21 21:39 Abnormal lab findings: Abnormal Labs 10/05/21 10/05/21 10/05/21 21:39 21:39 22:41 WBC 11.3 H RBC Hgb Hct RDW 15.3 H Plt Count Lymph % (Auto) 7.6 L Gila % (Auto) 7.7 H Lymph # (Auto) 0.9 L Gila # (Auto) 0.9 H Seg Neutrophils % 83.7 H Seg Neutrophils # 9.5 H PT 16.6 H INR 1.20 H Sodium Potassium Chloride Carbon Dioxide BUN Creatinine Glucose POC Glucose Calcium ALT Ammonia Total Protein Triglycerides Cholesterol LDL Cholesterol Direct HDL Cholesterol PTH Intact Urine Creatinine Urine Total Protein Salicylates < 0.3 L 10/05/21 10/05/21 10/06/21 22:41 22:41 04:21 WBC RBC Hgb Hct RDW Plt Count Lymph % (Auto) Gila % (Auto) Lymph # (Auto) Gila # (Auto) Seg Neutrophils % Seg Neutrophils # PT INR Sodium Potassium 7.7 H* 6.1 H* D Chloride Carbon Dioxide 19 L BUN 216 H 224 H Creatinine 18.1 H 19.7 H Glucose 117 H 64 L POC Glucose Calcium 11.0 H ALT < 5 L Ammonia 14.0 L Total Protein 8.3 H Triglycerides Cholesterol LDL Cholesterol Direct HDL Cholesterol PTH Intact Urine Creatinine Urine Total Protein Salicylates 10/06/21 10/06/21 10/06/21 04:21 14:04 17:30 WBC RBC Hgb Hct RDW Plt Count Lymph % (Auto) Gila % (Auto) Lymph # (Auto) Gila # (Auto) Seg Neutrophils % Seg Neutrophils # PT INR Sodium Potassium Chloride Carbon Dioxide BUN 131 H Creatinine 12.7 H Glucose 157 H POC Glucose Calcium ALT [place]monia Total Protein Triglycerides 382 H Cholesterol 273 H LDL Cholesterol Direct 151 H HDL Cholesterol 27 L PTH Intact Urine Creatinine 234.3 H Urine Total Protein 28 H Salicylates 10/07/21 10/07/21 10/07/21 05:14 05:14 05:14 WBC RBC 3.37 L Hgb 10.0 L Hct 30.1 L D RDW Plt Count 117 L Lymph % (Auto) 10.4 L Gila % (Auto) 7.9 H Lymph # (Auto) 0.7 L Gila # (Auto) Seg Neutrophils % 80.2 H Seg Neutrophils # PT INR Sodium Potassium Chloride Carbon Dioxide BUN 123 H Creatinine 10.9 H Glucose 119 H POC Glucose Calcium ALT Ammonia Total Protein Triglycerides Cholesterol LDL Cholesterol Direct HDL Cholesterol PTH Intact 333.5 H Urine Creatinine Urine Total Protein Salicylates 10/07/21 10/08/21 10/08/21 21:43 04:56 04:56 WBC RBC 3.59 L Hgb 10.4 L Hct 32.2 L RDW Plt Count 116 L Lymph % (Auto) Gila % (Auto) Lymph # (Auto) Gila # (Auto) Seg Neutrophils % Seg Neutrophils # PT INR Sodium 147 H Potassium Chloride 109.8 H Carbon Dioxide 20 L BUN 123 H Creatinine 9.7 H Glucose 110 H POC Glucose 144 H Calcium ALT Ammonia Total Protein Triglycerides Cholesterol LDL Cholesterol Direct HDL Cholesterol PTH Intact Urine Creatinine Urine Total Protein Salicylates Chest x-ray: report reviewed, image reviewed Additional Studies: CHEST 1 VIEW 10/06/21 INDICATION / CLINICAL INFORMATION: Pneumothorax evaluation STUDY TIME: 1326 COMPARISON: 10/06/2021 FINDINGS: SUPPORT DEVICES: Stable HEART / MEDIASTINUM: No significant abnormality. LUNGS / PLEURA: Less than full inspiration. Mild bibasilar linear atelectatic change. Mild chronic changes. No definite pneumonic infiltrates or effusions. No pneumothorax. ADDITIONAL FINDINGS: No significant additional findings.
--- NOTE | 2021-10-08 12:41 | Progress Note ---
Assessment and Plan Assessment and plan: This is a 71- year- old male who resides at [facility] with known past medical history of HTN, HF, depression, and CKD admitted for AMS, hyperkalemia, and acute on chronic kidney failure required emergent iHD Hospital Course to Date: 10/06: Remains altered but stable on 2L NC, VSS. Still hyperkalemic this am, HD in progress at the bedside. Repeat BMP a hour after HD. CT head/Brain noted. Continue CVA workup, MRI brain, US carotid, and 2D echo pending. Neurology consulted. Patient is hypoglycemic this am, s/p IV insulin for hyperkalemia, continue BG check and hypoglycemic protocol. Will order diet if patient pass bedside swallow. PT/OT/Speech consulted. Left big toe ulcer noted. Per patient's daughter, patient is following with Vascular Surgery outpatient, revascula rization was performed in the [facility] in the past and they were talking of possibly amputating that left toe. No evidence of any infectious process at this time and patient is currently hemodynamicaly stable. Will get wound care for wound management. Follow up with Vascular surgery outpatient for further management. 10/07: Increased confusion and agitation required wrist restraints overnight for safety. Patient is still confused this am, but calm and cooperative. MRI brain pending. Patient tolerated HD yesterday. Hypertensive this am, resumed home meds and continue PRN antihypertensives. Continue HD per Nephro. Patient is stable for transfer to Telemetry. MRI brain show extensive chronic and age-related changes Punctate focus of increased diffusion-weighted signal in the left thalamic area This may be an evidence of recent or acute left thalamic infarction Continue current management PT evaluated the patient and recommended subacute rehab or [facility] for trans ition to LTAC DC planning per case management Assessment and Plan #Acute Metabolic Encephalopathy Multifactorial, treat the underlying cause Supportive care #R/O CVA/acute CVA - Presented with alerted mental status - Probably due to azotemia, but will also r/o acute cva - CT head/brain noted, please see report for full details - Patient is still pleasantly confused this am, still moving all extremities - No significant neuro deficits appreciated - MRI brain, Carotid US,2D Echo pending - ASA and Statin initiated - Continue Neuro check per protocol - PT/OT/Speech ordered - Neurology consulted, appreciated recommendations - VTE proph- Heparin SubQ Acute on Chronic Kidney Disease; Nephrology evaluated, initiated hemodialysis on 10/06/21 HD per schedule, outpatient HD chair placement if needed #Severe Hyperkalemia- resolved -Initial potassium was 7.1, managed appropriately Currently hemodialysis per schedule #Hypertension; moderate control Continue current antihypertensives As needed hydralazine Closely monitor #Big Toe Ulcer, Left/wound dressing. Elevate the limb Supportive care - Left big toe ulcer noted - Per patient's daughter, patient is following with Vascular Surgery outpatient, revascularization was performed in the [facility] in the past and they were talking of possibly amputating that left toe. - No evidence of any infectious process at this time and patient is currently hemodynamicaly stable - Will get wound care for wound management - Follow up with Vascular Surgery outpatient for further management. #Hypoglycemia-resolved - Received IV insulin for hyperkalemia - BG improved post IV D50w per hypoglycemic protocol - Continue BG check Q6hrs - Continue Hypoglycemic protocol - On pureed diet per Speech therapy - Avoid hypoglycemia #GI/DVT Prophylaxis - PPI- Pepcid - Heparin SubQ - SCDs to bilateral lower extremities while in bed #Advance Care Planning - Disease education data, care plan, diagnoses, and prognosis were discussed with patient's daughter. Patient is a FULL code. Patient's daughter acknowledged understanding and agreement with current care plan. Closely monitor the patient and adjust the management as needed Plan of care reviewed with the patient and his nurse Discharge planning; PT recommended subacute rehab versus [facility] DC planning per case management when medically stable History Interval history: I have seen and examined the patient at the bedside Patient's chart and medications reviewed Patient was admitted with altered level of consciousness Extensive neuro work-up is done Patient feels slightly better Vital signs Hospitalist Physical - Constitutional Vitals: Temp Pulse Resp BP Pulse Ox 98.1 F 55 L 18 178/85 97 10/08/21 08:26 10/08/21 11:00 10/08/21 08:26 10/08/21 08:26 10/08/21 11:00 General appearance: Present: no acute distress, cachectic - EENT Eyes: Present: PERRL, EOM intact - Neck Neck: Present: supple, normal ROM - Respiratory Respiratory effort: normal Respiratory: bilateral: diminished, negative: rales, rhonchi, wheezing - Cardiovascular Rhythm: regular Heart Sounds: Present: S1 & S2 - Extremities Extremities: no ischemia, No edema - Abdominal General gastrointestinal: soft, non-tender, non-distended, normal bowel sounds - Integumentary Integumentary: Present: clear, warm - Psychiatric Psychiatric: appropriate mood/affect, cooperative - Neurologic Neurologic: moves all extremities Results - Labs CBC & Chem 7: 10/08/21 04:56 10/08/21 04:56 Labs: Laboratory Last Values WBC 6.6 K/mm3 (4.5-11.0) 10/08/21 04:56 RBC 3.59 M/mm3 (3.65-5.03) L 10/08/21 04:56 Hgb 10.4 gm/dl (11.8-15.2) L 10/08/21 04:56 Hct 32.2 % (35.5-45.6) L 10/08/21 04:56 MCV 90 fl (84-94) 10/08/21 04:56 MCH 29 pg (28-32) 10/08/21 04:56 MCHC 32 % (32-34) 10/08/21 04:56 RDW 15.1 % (13.2-15.2) 10/08/21 04:56 Plt Count 116 K/mm3 (140-440) L 10/08/21 04:56 Lymph % (Auto) 10.4 % (13.4-35.0) L 10/07/21 05:14 [place] % (Auto) 7.9 % (0.0-7.3) H 10/07/21 05:14 Eos % (Auto) 0.4 % (0.0-4.3) 10/07/21 05:14 Baso % (Auto) 1.1 % (0.0-1.8) 10/07/21 05:14 Lymph # (Auto) 0.7 K/mm3 (1.2-5.4) L 10/07/21 05:14 [place] # (Auto) 0.5 K/mm3 (0.0-0.8) 10/07/21 05:14 Eos # (Auto) 0.0 K/mm3 (0.0-0.4) 10/07/21 05:14 Baso # (Auto) 0.1 K/mm3 (0.0-0.1) 10/07/21 05:14 Seg Neutrophils % 80.2 % (40.0-70.0) H 10/07/21 05:14 Seg Neutrophils # 5.4 K/mm3 (1.8-7.7) 10/07/21 05:14 PT 16.6 Sec. (12.2-14.9) H 10/05/21 21:39 INR 1.20 (0.87-1.13) H 10/05/21 21:39 Sodium 147 mmol/L (137-145) H 10/08/21 04:56 Potassium 4.5 mmol/L (3.6-5.0) 10/08/21 04:56 Chloride 109.8 mmol/L (98-107) H 10/08/21 04:56 Carbon Dioxide 20 mmol/L (22-30) L 10/08/21 04:56 Anion Gap 22 mmol/L 10/08/21 04:56 BUN 123 mg/dL (9-20) H 10/08/21 04:56 Creatinine 9.7 mg/dL (0.8-1.3) H 10/08/21 04:56 Estimated GFR 6 ml/min 10/08/21 04:56 BUN/Creatinine Ratio 13 % 10/08/21 04:56 Glucose 110 mg/dL (75-100) H 10/08/21 04:56 POC Glucose 145 mg/dL (70-105) H 10/08/21 11:22 Calcium 9.0 mg/dL (8.4-10.2) 10/08/21 04:56 Total Bilirubin 0.50 mg/dL (0.1-1.2) 10/05/21 22:41 AST 11 units/L (5-40) 10/05/21 22:41 ALT < 5 units/L (7-56) L 10/05/21 22:41 Alkaline Phosphatase 64 units/L (35-129) 10/05/21 22:41 Ammonia 14.0 umol/L (25-60) L 10/05/21 22:41 Total Protein 8.3 g/dL (6.3-8.2) H 10/05/21 22:41 Albumin 4.9 g/dL (3.9-5) 10/05/21 22:41 Albumin/Globulin Ratio 1.4 % 10/05/21 22:41 Triglycerides 382 mg/dL (2-149) H 10/06/21 04:21 Cholesterol 273 mg/dL (50-199) H 10/06/21 04:21 LDL Cholesterol Direct 151 mg/dL (50-130) H 10/06/21 04:21 HDL Cholesterol 27 mg/dL (40-59) L 10/06/21 04:21 Cholesterol/HDL Ratio 10.11 % 10/06/21 04:21 PTH Intact 333.5 pg/mL (15-65) H 10/07/21 05:14 Urine Color Yellow (Yellow) 10/06/21 Unknown Urine Turbidity Clear (Clear) 10/06/21 Unknown Urine pH 5.0 (5.0-7.0) 10/06/21 Unknown Ur Specific [place] 1.015 (1.003-1.030) 10/06/21 Unknown Urine Protein <15 mg/dl mg/dL (Negative) 10/06/21 Unknown Urine Glucose (UA) Neg mg/dL (Negative) 10/06/21 Unknown Urine Ketones Neg mg/dL (Negative) 10/06/21 Unknown Urine Blood Sm (Negative) 10/06/21 Unknown Urine Nitrite Neg (Negative) 10/06/21 Unknown Urine Bilirubin Neg (Negative) 10/06/21 Unknown Urine Urobilinogen < 2.0 mg/dL (<2.0) 10/06/21 Unknown Ur Leukocyte Esterase Neg (Negative) 10/06/21 Unknown Urine WBC (Auto) 2.0 /HPF (0.0-6.0) 10/06/21 Unknown Urine RBC (Auto) 4.0 /HPF (0.0-6.0) 10/06/21 Unknown U Epithel Cells (Auto) 3.0 /HPF (0-13.0) 10/06/21 Unknown Urine Bacteria (Auto) 1+ /HPF (Negative) 10/06/21 Unknown Hyaline Casts 14 /LPF 10/06/21 Unknown Urine Mucus Few /HPF 10/06/21 Unknown Urine Yeast (Budding) 2+ /HPF 10/06/21 Unknown Urine Creatinine 234.3 mg/dL (0.1-20.0) H 10/06/21 14:04 Protein/Creatinin Ratio 0.12 10/06/21 14:04 Urine Total Protein 28 mg/dL (5-11.8) H 10/06/21 14:04 Salicylates < 0.3 mg/dL (2.8-20.0) L 10/05/21 22:41 Urine Opiates Screen Presumptive negative 10/06/21 Unknown Urine Methadone Screen Presumptive negative 10/06/21 Unknown Ur Barbiturates Screen Presumptive negative 10/06/21 Unknown Ur Phencyclidine Scrn Presumptive negative 10/06/21 Unknown Ur Amphetamines Screen Presumptive negative 10/06/21 Unknown U Benzodiazepines Scrn Presumptive negative 10/06/21 Unknown Urine Cocaine Screen Presumptive negative 10/06/21 Unknown U Marijuana (THC) Screen Presumptive negative 10/06/21 Unknown Drugs of Abuse Note Disclamer 10/06/21 Unknown Plasma/Serum Alcohol < 0.01 % (0-0.07) 10/05/21 21:39 Hepatitis A IgM Ab Non-reactive (NonReactive) 10/06/21 09:12 Hep Bs Antigen Non-reactive (Negative) 10/06/21 09:12 Hep B Core IgM Ab Non-reactive (NonReactive) 10/06/21 09:12 Hepatitis C Antibody Non-reactive (NonReactive) 10/06/21 09:12 Paez/IV: Voiding Method Condom Catheter Active Medications - Current Medications Current Medications: Generic Name Dose Route Start Last Admin Trade Name Freq PRN Reason Stop Dose Admin Acetaminophen 650 mg 10/06/21 01:42 Acetaminophen 325 Mg Tab PO Q4H PRN Pain MILD(1-3)/Fever >100.5/MARROQUIN Aspirin 81 mg 10/08/21 10:00 10/08/21 10:36 Aspirin 81 Mg Tab Chew PO 81 mg QDAY FREDI Administration Atorvastatin Calcium 40 mg 10/06/21 22:00 10/07/21 21:37 Atorvastatin 40 Mg Tab PO 40 mg QHS FREDI Administration Bisacodyl 10 mg 10/06/21 01:42 Bisacodyl 10 Mg Rect Supp [place] QDAY PRN Constipation Carvedilol 6.25 mg 10/07/21 10:00 10/08/21 10:36 Carvedilol 6.25 Mg Tab PO 6.25 mg BID FREDI Administration Dextrose 50 ml 10/06/21 01:42 Dextrose 50% In Water (25gm) 50 Ml Syringe IV Q30MIN PRN Hypoglycemia Protocol Famotidine 20 mg 10/07/21 10:00 10/08/21 10:36 Famotidine 20 Mg Tab PO 20 mg DAILY FREDI Administration Heparin Sodium (Porcine) 5,000 unit 10/06/21 14:00 10/08/21 05:58 Heparin 5,000 Unit/1 Ml Vial SUB-Q 5,000 unit Q8HR FREDI Administration Hydralazine HCl 10 mg 10/06/21 18:38 10/08/21 00:41 Hydralazine 20 Mg/1 Ml Inj IV 10 mg Q4HR PRN Administration Hypertension Sodium Chloride 100 mls @ 999 mls/hr 10/06/21 02:34 Nacl 0.9% IV DESHAWN PRN Hypotension Sodium Chloride 1,000 mls @ 100 mls/hr 10/06/21 15:00 10/07/21 02:37 Nacl 0.9% 1000 Ml IV 100 mls/hr DIRECT FREDI Administration Magnesium Hydroxide 30 ml 10/06/21 01:42 Magnesium Hydroxide (Mom) Oral Liqd Udc PO Q4H PRN Constipation Metoclopramide HCl 2.5 mg 10/06/21 01:59 Metoclopramide 10 Mg/10 Ml Oral Liqd PO Q6H PRN Nausea And Vomiting Nifedipine 60 mg 10/07/21 10:00 10/08/21 10:36 Nifedipine Xl 60 Mg Tab PO 60 mg DAILY FREDI Administration Ondansetron HCl 4 mg 10/06/21 01:42 Ondansetron 4 Mg/2 Ml Inj IV Q8H PRN Nausea And Vomiting Promethazine HCl 25 mg 10/06/21 01:42 Promethazine 25 Mg Rect Supp [place] Q6H PRN Nausea And Vomiting Sodium Chloride 10 ml 10/06/21 10:00 10/08/21 10:36 Sodium Chloride 0.9% 10 Ml Flush Syringe IV 10 ml BID FREDI Administration Sodium Chloride 10 ml 10/06/21 01:42 Sodium Chloride 0.9% 10 Ml Flush Syringe IV PRN PRN LINE FLUSH Nutrition/Malnutrition Assess - Dietary Evaluation Nutrition/Malnutrition Findings: Nutrition Notes Start: 10/06/21 16:50 Freq: Status: Active Protocol: Document 10/06/21 16:50 NOEL (Rec: 10/06/21 17:01 NOEL [email or web address]) Nutrition Notes Need for Assessment generated from: MD Order,human resources trainer,MST, Education Initial or Follow up Assessment Current Diagnosis Acute Kidney Injury, Hypertension,Stroke Other Pertinent Diagnosis AMS, HARDIK+HD, Hyperkalemia. Current Diet Pureed Diet (since D 10/06). Labs/Tests 10/06: K 6.1, CO2 19, BUN 224, Crea 19.7, Glu 64, Ca 11.0. Pertinent Medications 10/06: Nutritionally unremarkable. 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 Weight Status Appropriate Subjective/Other Information RD consult for nutrition education assessment. No reports available on Pt's PO intake of meals at the time , will assess at F/U. CONTROL SYSTEMS ENG note on 10/06/21 14:53: Patient demonstrates a delayed oral transit time with a swallow reflex of 1 second. No evidence of aspiration was identified. However, per nurse , the patient's family reported that the patient's baseline intake is poor. Recommend a pureed diet with thins with an alternative method of nutrition. - END OF NOTE. Pt is on Nasal Cannula, O2 saturation @ 96%, according to Physical Assessment History notes. Pt shows no signs of concer for risk of malnutrition at the time, according to Physical Assessment History notes. Pt has missing teeth, according to Physical Assessment History notes. Pt is a SNF reesident, according to Progress notes. Pt still in critical condition , not a candidate for Nutrition Education at the time, will assess feasibility on F/U. Percent of energy/protein needs met: Prescribed Pureed Diet provides for energy/protein needs (1,804 Kcal/77 g) during LOS. Burn Absent Trauma Absent GI Symptoms None Food Allergy No Skin Integrity/Comment Unspecified dryness. Minimum of two criteria No Fluid Accumulation N/A Reduced Health Information Managers Strength N/A (non-severe) Protein-Calorie Malnutrition N\A #1 Nutrition Diagnosis No nutrition diagnosis at this time Comments: Will assess Pt's PO intake of meals at F/U. Is patient on ventilator? No Is Patient Ambulatory and/or Out of Bed No REE-([facility]-confined to bed) 1893.732 Kcal/Kg value to use for calculation 31 Approximate Energy Requirements Using 2320 kcal/Kg Calculation Used for Recommendations Kcal/kg Additional Notes Protein: >1.2 g/Kg IBW; >103 g /day. Fluids: 1 ml/Kcal, or as per MD. Nutrition Intervention Change Diet Order: Continue Pureed Diet. Follow-Up By: 10/13/21 Additional Comments Nutrition education will be provided at F/U, if feasible. Continue monitoring food tolerance, %PO intake of meals , and BM.
--- NOTE | 2021-10-08 17:50 | Progress Note ---
Assessment and Plan # Acute Kidney Injury/Kidney Failure: creatinine 18, BUN>200 with hyperkalemia, acidosis, likely uremic effects. Noted to have creatinine 1.2 earlier this year so suspect acute kidney injury, needs full workup - STAT HD started 10/06 for hyperkalemia, azotemia/uremia; continue daily HD x3 days for now given uremia/azotemia and need to avoid disequilibrium - plan for next HD 10/10 - renal ultrasound acutely WNL, no obstruction - urinalysis reviewed, check serologies to rule out GN injury - note PTH high, may have secondary to underlying CKD - strict Is/Os- not much urine output noted - consider IVF challenges as may have pre-renal injury - assess for renal recovery as able - avoid nephrotoxins - hold diuretics, EMILIANO/ARB for now # HTN: BP stable currently, restarted on nifedipine per primary team due to HTN, increase to 90mg. Avoid ARB for now given hyperkalemia, HARDIK. Can restart once HARDIK improves or clearly CKD progression # Altered Mentation: unknown baseline, may have uremic effects # CVA: care per primary, neurology Subjective Date of service: 10/08/21 Interval history: No acute events noted Objective - Exam Narrative Exam: General appearance: no distress, frail EENT: ATNC Neck: Present: neck supple Respiratory: Clear to Ascultation, Normal Exam Heart: regular Gastrointestinal: Present: normoactive bowel sounds Integumentary: no rash, cool/clammy Neurologic: no asterixis, confused - Vital Signs Vital signs: Vital Signs - 12hr 10/08/21 10/08/21 10/08/21 08:08 08:26 11:00 Temperature 98.1 F Pulse Rate 68 55 L Respiratory 18 Rate Blood Pressure 178/85 Blood Pressure 178/85 [Right] O2 Sat by Pulse 99 97 Oximetry 10/08/21 17:10 Temperature 98 F Pulse Rate 65 Respiratory 18 Rate Blood Pressure Blood Pressure 164/81 [Right] O2 Sat by Pulse 97 Oximetry - Lab 10/08/21 04:56 10/08/21 04:56 Most recent lab results Calcium 9.0 mg/dL (8.4-10.2) 10/08/21 04:56 Urine Creatinine 234.3 mg/dL (0.1-20.0) H 10/06/21 14:04 Urine Total Protein 28 mg/dL (5-11.8) H 10/06/21 14:04 Medications & Allergies - Medications Allergies/Adverse Reactions: Allergies No Known Allergies Allergy (Verified 05/09/21 13:32) Home Medications: Home Medications Medication Instructions Recorded Confirmed Last Taken Type Furosemide [Lasix TAB] 40 mg PO QDAY #30 tablet 05/10/21 10/08/21 Unknown Rx carvediloL [Coreg] 6.25 mg PO BID #60 tablet 05/11/21 10/08/21 Unknown Rx NIFEdipine [Nifedipine ER] 60 mg PO DAILY #30 tab 05/13/21 10/08/21 Unknown Rx Valsartan [Diovan] 160 mg PO QDAY #30 tablet 05/13/21 10/08/21 Unknown Rx Active Medications: Generic Name Dose Route Start Last Admin Trade Name Freq PRN Reason Stop Dose Admin Acetaminophen 650 mg 10/06/21 01:42 Acetaminophen 325 Mg Tab PO Q4H PRN Pain MILD(1-3)/Fever >100.5/MARROQUIN Aspirin 81 mg 10/08/21 10:00 10/08/21 10:36 Aspirin 81 Mg Tab Chew PO 81 mg QDAY FREDI Administration Atorvastatin Calcium 40 mg 10/06/21 22:00 10/07/21 21:37 Atorvastatin 40 Mg Tab PO 40 mg QHS FREDI Administration Bisacodyl 10 mg 10/06/21 01:42 Bisacodyl 10 Mg Rect Supp [place] QDAY PRN Constipation Carvedilol 6.25 mg 10/07/21 10:00 10/08/21 10:36 Carvedilol 6.25 Mg Tab PO 6.25 mg BID FREDI Administration Dextrose 50 ml 10/06/21 01:42 Dextrose 50% In Water (25gm) 50 Ml Syringe IV Q30MIN PRN Hypoglycemia Protocol Famotidine 20 mg 10/07/21 10:00 10/08/21 10:36 Famotidine 20 Mg Tab PO 20 mg DAILY FREDI Administration Heparin Sodium (Porcine) 5,000 unit 10/06/21 14:00 10/08/21 14:00 Heparin 5,000 Unit/1 Ml Vial SUB-Q 5,000 unit Q8HR FREDI Administration Hydralazine HCl 10 mg 10/06/21 18:38 10/08/21 00:41 Hydralazine 20 Mg/1 Ml Inj IV 10 mg Q4HR PRN Administration Hypertension Sodium Chloride 100 mls @ 999 mls/hr 10/06/21 02:34 Nacl 0.9% IV DESHAWN PRN Hypotension Sodium Chloride 1,000 mls @ 100 mls/hr 10/06/21 15:00 10/07/21 02:37 Nacl 0.9% 1000 Ml IV 100 mls/hr DIRECT FREDI Administration Magnesium Hydroxide 30 ml 10/06/21 01:42 Magnesium Hydroxide (Mom) Oral Liqd Udc PO Q4H PRN Constipation Metoclopramide HCl 2.5 mg 10/06/21 01:59 Metoclopramide 10 Mg/10 Ml Oral Liqd PO Q6H PRN Nausea And Vomiting Nifedipine 60 mg 10/07/21 10:00 10/08/21 10:36 Nifedipine Xl 60 Mg Tab PO 60 mg DAILY FREDI Administration Ondansetron HCl 4 mg 10/06/21 01:42 Ondansetron 4 Mg/2 Ml Inj IV Q8H PRN Nausea And Vomiting Promethazine HCl 25 mg 10/06/21 01:42 Promethazine 25 Mg Rect Supp [place] Q6H PRN Nausea And Vomiting Sodium Chloride 10 ml 10/06/21 10:00 10/08/21 10:36 Sodium Chloride 0.9% 10 Ml Flush Syringe IV 10 ml BID FREDI Administration Sodium Chloride 10 ml 10/06/21 01:42 Sodium Chloride 0.9% 10 Ml Flush Syringe IV PRN PRN LINE FLUSH
[2021-10-08] MEDS ORDERED: NIFEdipine XL 30 MG TAB PO SCH (19:00)
[2021-10-09] MEDS: HEPARIN 5,000 UNIT/1 ML VIAL SUB-Q SCH ×3 (06:54→21:58)
--- NOTE | 2021-10-09 08:48 | Progress Note ---
Assessment and Plan Assessment and plan: Hospital Course to Date: 10/06: Remains altered but stable on 2L NC, VSS. Still hyperkalemic this am, HD in progress at the bedside. Repeat BMP a hour after HD. CT head/Brain noted. Continue CVA workup, MRI brain, US carotid, and 2D echo pending. Neurology consulted. Patient is hypoglycemic this am, s/p IV insulin for hyperkalemia, continue BG check and hypoglycemic protocol. Will order diet if patient pass bedside swallow. PT/OT/Speech consulted. Left big toe ulcer noted. Per patient's daughter, patient is following with Vascular Surgery outpatient, revascularization was performed in the [facility] in the past and they were talking of possibly amputating that left toe. No evidence of any infectious process at this time and patient is currently hemodynamicaly stable. Will get wound care for wound management. Follow up with Vascular surgery outpatient for further management. 10/07: Increased confusion and agitation required wrist restraints overnight for safety. Patient is still confused this am, but calm and cooperative. MRI brain pending. Patient tolerated HD yesterday. Hypertensive this am, resumed home meds and continue PRN antihypertensives. Continue HD per Nephro. Patient is stable for transfer to Telemetry. 10/09/2021; patient is slightly agitated requiring restraints Awaiting return to SNF when medically stable Nephrology initiated hemodialysis, HD as needed If renal decides that patient needs long-term hemodialysis Case management will assist with outpatient HD chair scheduling MRI brain show extensive chronic and age-related changes Punctate focus of increased diffusion-weighted signal in the left thalamic area This may be an evidence of recent or acute left thalamic infarction Continue current management PT evaluated the patient and recommended subacute rehab or [facility] for transition to LTAC DC planning per case management Assessment and Plan #Acute Metabolic Encephalopathy Multifactorial, treat the underlying cause Supportive care #R/O CVA/acute CVA - Presented with alerted mental status - Probably due to azotemia, but will also r/o acute cva - CT head/brain noted, please see report for full details - Patient is still pleasantly confused this am, still moving all extremities - No significant neuro deficits appreciated - MRI brain, Carotid US,2D Echo pending - ASA and Statin initiated - Continue Neuro check per protocol - PT/OT/Speech ordered - Neurology consulted, appreciated recommendations - VTE proph- Heparin SubQ Acute on Chronic Kidney Disease; Nephrology evaluated, initiated hemodialysis on 10/06/21 HD per schedule, outpatient HD chair placement if needed #Severe Hyperkalemia- resolved -Initial potassium was 7.1, managed appropriately Currently hemodialysis per schedule #Hypertension; moderate control Continue current antihypertensives As needed hydralazine Closely monitor #Big Toe Ulcer, Left/wound dressing. Elevate the limb Supportive care - Left big toe ulcer noted - Per patient's daughter, patient is following with Vascular Surgery outpatient, revascularization was performed in the [facility] in the past and they were talking of possibly amputating that left toe. - No evidence of any infectious process at this time and patient is currently hemodynamicaly stable - Will get wound care for wound management - Follow up with Vascular Surgery outpatient for further management. #Hypoglycemia-resolved - Received IV insulin for hyperkalemia - BG improved post IV D50w per hypoglycemic protocol - Continue BG check Q6hrs - Continue Hypoglycemic protocol - On pureed diet per Speech therapy - Avoid hypoglycemia #GI/DVT Prophylaxis - PPI- Pepcid - Heparin SubQ - SCDs to bilateral lower extremities while in bed #Advance Care Planning - Disease education data, care plan, diagnoses, and prognosis were discussed with patient's daughter. Patient is a FULL code. Patient's daughter acknowledged understanding and agreement with current care plan. Closely monitor the patient and adjust the management as needed Plan of care reviewed with the patient and his nurse Discharge planning; PT recommended subacute rehab versus [facility] facility Patient would return to [facility] facility when medically stable DC planning per case management when medically stable Plan of care reviewed with the patient. His nurse History Interval history: I have seen and examined the patient at the bedside Patient's chart and medications reviewed Patient is alert and awake confused at times Restraint for safety no new events reported by the nursing Vital signs reviewed Hospitalist Physical - Constitutional Vitals: Temp Pulse Resp BP Pulse Ox 98.5 F 72 18 165/79 100 10/09/21 08:05 10/09/21 08:05 10/09/21 08:05 10/09/21 08:05 10/09/21 08:05 General appearance: Present: no acute distress, cachectic - EENT Eyes: Present: PERRL, EOM intact - Neck Neck: Present: supple, normal ROM - Respiratory Respiratory effort: normal Respiratory: bilateral: diminished, negative: rales, rhonchi, wheezing - Cardiovascular Rhythm: regular Heart Sounds: Present: S1 & S2 - Extremities Extremities: no ischemia, No edema - Abdominal General gastrointestinal: soft, non-tender, non-distended, normal bowel sounds - Integumentary Integumentary: Present: clear, warm - Psychiatric Psychiatric: appropriate mood/affect, other (Confused) - Neurologic Neurologic: moves all extremities Results - Labs CBC & Chem 7: 10/08/21 04:56 10/08/21 04:56 Labs: Laboratory Last Values WBC 6.6 K/mm3 (4.5-11.0) 10/08/21 04:56 RBC 3.59 M/mm3 (3.65-5.03) L 10/08/21 04:56 Hgb 10.4 gm/dl (11.8-15.2) L 10/08/21 04:56 Hct 32.2 % (35.5-45.6) L 10/08/21 04:56 MCV 90 fl (84-94) 10/08/21 04:56 MCH 29 pg (28-32) 10/08/21 04:56 MCHC 32 % (32-34) 10/08/21 04:56 RDW 15.1 % (13.2-15.2) 10/08/21 04:56 Plt Count 116 K/mm3 (140-440) L 10/08/21 04:56 Lymph % (Auto) 10.4 % (13.4-35.0) L 10/07/21 05:14 [place] % (Auto) 7.9 % (0.0-7.3) H 10/07/21 05:14 Eos % (Auto) 0.4 % (0.0-4.3) 10/07/21 05:14 Baso % (Auto) 1.1 % (0.0-1.8) 10/07/21 05:14 Lymph # (Auto) 0.7 K/mm3 (1.2-5.4) L 10/07/21 05:14 [place] # (Auto) 0.5 K/mm3 (0.0-0.8) 10/07/21 05:14 Eos # (Auto) 0.0 K/mm3 (0.0-0.4) 10/07/21 05:14 Baso # (Auto) 0.1 K/mm3 (0.0-0.1) 10/07/21 05:14 Seg Neutrophils % 80.2 % (40.0-70.0) H 10/07/21 05:14 Seg Neutrophils # 5.4 K/mm3 (1.8-7.7) 10/07/21 05:14 PT 16.6 Sec. (12.2-14.9) H 10/05/21 21:39 INR 1.20 (0.87-1.13) H 10/05/21 21:39 Sodium 147 mmol/L (137-145) H 10/08/21 04:56 Potassium 4.5 mmol/L (3.6-5.0) 10/08/21 04:56 Chloride 109.8 mmol/L (98-107) H 10/08/21 04:56 Carbon Dioxide 20 mmol/L (22-30) L 10/08/21 04:56 Anion Gap 22 mmol/L 10/08/21 04:56 BUN 123 mg/dL (9-20) H 10/08/21 04:56 Creatinine 9.7 mg/dL (0.8-1.3) H 10/08/21 04:56 Estimated GFR 6 ml/min 10/08/21 04:56 BUN/Creatinine Ratio 13 % 10/08/21 04:56 Glucose 110 mg/dL (75-100) H 10/08/21 04:56 POC Glucose 93 mg/dL (70-105) 10/09/21 06:58 Calcium 9.0 mg/dL (8.4-10.2) 10/08/21 04:56 Total Bilirubin 0.50 mg/dL (0.1-1.2) 10/05/21 22:41 AST 11 units/L (5-40) 10/05/21 22:41 ALT < 5 units/L (7-56) L 10/05/21 22:41 Alkaline Phosphatase 64 units/L (35-129) 10/05/21 22:41 Ammonia 14.0 umol/L (25-60) L 10/05/21 22:41 Total Protein 8.3 g/dL (6.3-8.2) H 10/05/21 22:41 Albumin 4.9 g/dL (3.9-5) 10/05/21 22:41 Albumin/Globulin Ratio 1.4 % 10/05/21 22:41 Triglycerides 382 mg/dL (2-149) H 10/06/21 04:21 Cholesterol 273 mg/dL (50-199) H 10/06/21 04:21 LDL Cholesterol Direct 151 mg/dL (50-130) H 10/06/21 04:21 HDL Cholesterol 27 mg/dL (40-59) L 10/06/21 04:21 Cholesterol/HDL Ratio 10.11 % 10/06/21 04:21 PTH Intact 333.5 pg/mL (15-65) H 10/07/21 05:14 Urine Color Yellow (Yellow) 10/06/21 Unknown Urine Turbidity Clear (Clear) 10/06/21 Unknown Urine pH 5.0 (5.0-7.0) 10/06/21 Unknown Ur Specific [place] 1.015 (1.003-1.030) 10/06/21 Unknown Urine Protein <15 mg/dl mg/dL (Negative) 10/06/21 Unknown Urine Glucose (UA) Neg mg/dL (Negative) 10/06/21 Unknown Urine Ketones Neg mg/dL (Negative) 10/06/21 Unknown Urine Blood Sm (Negative) 10/06/21 Unknown Urine Nitrite Neg (Negative) 10/06/21 Unknown Urine Bilirubin Neg (Negative) 10/06/21 Unknown Urine Urobilinogen < 2.0 mg/dL (<2.0) 10/06/21 Unknown Ur Leukocyte Esterase Neg (Negative) 10/06/21 Unknown Urine WBC (Auto) 2.0 /HPF (0.0-6.0) 10/06/21 Unknown Urine RBC (Auto) 4.0 /HPF (0.0-6.0) 10/06/21 Unknown U Epithel Cells (Auto) 3.0 /HPF (0-13.0) 10/06/21 Unknown Urine Bacteria (Auto) 1+ /HPF (Negative) 10/06/21 Unknown Hyaline Casts 14 /LPF 10/06/21 Unknown Urine Mucus Few /HPF 10/06/21 Unknown Urine Yeast (Budding) 2+ /HPF 10/06/21 Unknown Urine Creatinine 234.3 mg/dL (0.1-20.0) H 10/06/21 14:04 Protein/Creatinin Ratio 0.12 10/06/21 14:04 Urine Total Protein 28 mg/dL (5-11.8) H 10/06/21 14:04 Salicylates < 0.3 mg/dL (2.8-20.0) L 10/05/21 22:41 Urine Opiates Screen Presumptive negative 10/06/21 Unknown Urine Methadone Screen Presumptive negative 10/06/21 Unknown Ur Barbiturates Screen Presumptive negative 10/06/21 Unknown Ur Phencyclidine Scrn Presumptive negative 10/06/21 Unknown Ur Amphetamines Screen Presumptive negative 10/06/21 Unknown U Benzodiazepines Scrn Presumptive negative 10/06/21 Unknown Urine Cocaine Screen Presumptive negative 10/06/21 Unknown U Marijuana (THC) Screen Presumptive negative 10/06/21 Unknown Drugs of Abuse Note Disclamer 10/06/21 Unknown Plasma/Serum Alcohol < 0.01 % (0-0.07) 10/05/21 21:39 Hepatitis A IgM Ab Non-reactive (NonReactive) 10/06/21 09:12 Hep Bs Antigen Non-reactive (Negative) 10/06/21 09:12 Hep B Core IgM Ab Non-reactive (NonReactive) 10/06/21 09:12 Hepatitis C Antibody Non-reactive (NonReactive) 10/06/21 09:12 Paez/IV: Voiding Method Condom Catheter Active Medications - Current Medications Current Medications: Generic Name Dose Route Start Last Admin Trade Name Freq PRN Reason Stop Dose Admin Acetaminophen 650 mg 10/06/21 01:42 Acetaminophen 325 Mg Tab PO Q4H PRN Pain MILD(1-3)/Fever >100.5/MARROQUIN Aspirin 81 mg 10/08/21 10:00 10/08/21 10:36 Aspirin 81 Mg Tab Chew PO 81 mg QDAY FREDI Administration Atorvastatin Calcium 40 mg 10/06/21 22:00 10/08/21 22:27 Atorvastatin 40 Mg Tab PO 40 mg QHS FREDI Administration Bisacodyl 10 mg 10/06/21 01:42 Bisacodyl 10 Mg Rect Supp [place] QDAY PRN Constipation Carvedilol 6.25 mg 10/07/21 10:00 10/08/21 22:26 Carvedilol 6.25 Mg Tab PO 6.25 mg BID FREDI Administration Dextrose 50 ml 10/06/21 01:42 Dextrose 50% In Water (25gm) 50 Ml Syringe IV Q30MIN PRN Hypoglycemia Protocol Famotidine 20 mg 10/07/21 10:00 10/08/21 10:36 Famotidine 20 Mg Tab PO 20 mg DAILY FREDI Administration Heparin Sodium (Porcine) 5,000 unit 10/06/21 14:00 10/09/21 06:54 Heparin 5,000 Unit/1 Ml Vial SUB-Q 5,000 unit Q8HR FREDI Administration Hydralazine HCl 10 mg 10/06/21 18:38 10/08/21 00:41 Hydralazine 20 Mg/1 Ml Inj IV 10 mg Q4HR PRN Administration Hypertension Sodium Chloride 100 mls @ 999 mls/hr 10/06/21 02:34 Nacl 0.9% IV DESHAWN PRN Hypotension Sodium Chloride 1,000 mls @ 100 mls/hr 10/06/21 15:00 10/07/21 02:37 Nacl 0.9% 1000 Ml IV 100 mls/hr DIRECT FREDI Administration Magnesium Hydroxide 30 ml 10/06/21 01:42 Magnesium Hydroxide (Mom) Oral Liqd Udc PO Q4H PRN Constipation Metoclopramide HCl 2.5 mg 10/06/21 01:59 Metoclopramide 10 Mg/10 Ml Oral Liqd PO Q6H PRN Nausea And Vomiting Nifedipine 90 mg 10/09/21 10:00 Nifedipine Xl 90 Mg Tab PO QDAY FREDI Ondansetron HCl 4 mg 10/06/21 01:42 Ondansetron 4 Mg/2 Ml Inj IV Q8H PRN Nausea And Vomiting Promethazine HCl 25 mg 10/06/21 01:42 Promethazine 25 Mg Rect Supp [place] Q6H PRN Nausea And Vomiting Sodium Chloride 10 ml 10/06/21 10:00 10/08/21 22:27 Sodium Chloride 0.9% 10 Ml Flush Syringe IV 10 ml BID FREDI Administration Sodium Chloride 10 ml 10/06/21 01:42 Sodium Chloride 0.9% 10 Ml Flush Syringe IV PRN PRN LINE FLUSH Nutrition/Malnutrition Assess - Dietary Evaluation Nutrition/Malnutrition Findings: Nutrition Notes Start: 10/06/21 16:50 Freq: Status: Active Protocol: Document 10/06/21 16:50 NOEL (Rec: 10/06/21 17:01 NOEL [id number]) Nutrition Notes Need for Assessment generated from: MD Order,youth associate,MST, Education Initial or Follow up Assessment Current Diagnosis Acute Kidney Injury, Hypertension,Stroke Other Pertinent Diagnosis AMS, HARDIK+HD, Hyperkalemia. Current Diet Pureed Diet (since D 10/06). Labs/Tests 10/06: K 6.1, CO2 19, BUN 224, Crea 19.7, Glu 64, Ca 11.0. Pertinent Medications 10/06: Nutritionally unremarkable. 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 Weight Status Appropriate Subjective/Other Information RD consult for nutrition education assessment. No reports available on Pt's PO intake of meals at the time , will assess at F/U. [employer] note on 10/06/21 14:53: Patient demonstrates a delayed oral transit time with a swallow reflex of 1 second. No evidence of aspiration was identified. However, per nurse , the patient's family reported that the patient's baseline intake is poor. Recommend a pureed diet with thins with an alternative method of nutrition. - END OF NOTE. Pt is on Nasal Cannula, O2 saturation @ 96%, according to Physical Assessment History notes. Pt shows no signs of concer for risk of malnutrition at the time, according to Physical Assessment History notes. Pt has missing teeth, according to Physical Assessment History notes. Pt is a SNF reesident, according to Progress notes. Pt still in critical condition , not a candidate for Nutrition Education at the time, will assess feasibility on F/U. Percent of energy/protein needs met: Prescribed Pureed Diet provides for energy/protein needs (1,804 Kcal/77 g) during LOS. Burn Absent Trauma Absent GI Symptoms None Food Allergy No Skin Integrity/Comment Unspecified dryness. Minimum of two criteria No Fluid Accumulation N/A Reduced Oncology Social Work Strength N/A (non-severe) Protein-Calorie Malnutrition N\A #1 Nutrition Diagnosis No nutrition diagnosis at this time Comments: Will assess Pt's PO intake of meals at F/U. Is patient on ventilator? No Is Patient Ambulatory and/or Out of Bed No REE-([facility]-confined to bed) 1893.732 Kcal/Kg value to use for calculation 31 Approximate Energy Requirements Using 2320 kcal/Kg Calculation Used for Recommendations Kcal/kg Additional Notes Protein: >1.2 g/Kg IBW; >103 g /day. Fluids: 1 ml/Kcal, or as per MD. Nutrition Intervention Change Diet Order: Continue Pureed Diet. Follow-Up By: 10/13/21 Additional Comments Nutrition education will be provided at F/U, if feasible. Continue monitoring food tolerance, %PO intake of meals , and BM.
[2021-10-09] MEDS: FAMOTIDINE 20 MG TAB PO SCH (09:09)
[2021-10-09] MEDS: carvediloL 6.25 MG TAB PO SCH ×2 (09:09→21:57)
[2021-10-09] MEDS: ASPIRIN 81 MG TAB CHEW PO SCH (09:09)
[2021-10-09] MEDS: NIFEdipine XL 90 MG TAB PO SCH (09:09)
--- NOTE | 2021-10-09 09:18 | Progress Note ---
Assessment and Plan # Acute Kidney Injury/Kidney Failure: creatinine 18, BUN>200 with hyperkalemia, acidosis, likely uremic effects. Noted to have creatinine 1.2 earlier this year so suspect acute kidney injury - STAT HD started 10/06 for hyperkalemia, azotemia/uremia; s/p daily HD x3 days for now given uremia/azotemia and need to avoid disequilibrium - plan for next HD 10/10 for ongoing solute/toxin management - renal ultrasound acutely WNL, no obstruction - urinalysis reviewed, check serologies to rule out GN injury, still pending - note PTH high, may have secondary to underlying CKD - strict Is/Os- not much urine output noted - consider IVF challenges as may have pre-renal injury, appears hypovolemic on exam - assess for renal recovery as able - avoid nephrotoxins - hold diuretics, EMILIANO/ARB for now # HTN: BP stable currently, restarted on nifedipine per primary team due to HTN, increased to 90mg. Avoid ARB for now given hyperkalemia, HARDIK. Can restart once HARDIK improves or clearly CKD progression # Altered Mentation: unknown baseline, may have uremic effects # CVA: care per primary, neurology Subjective Date of service: 10/09/21 Interval history: No acute events noted, remains drowsy in bed Objective - Exam Narrative Exam: General appearance: no distress, frail EENT: ATNC Neck: Present: neck supple Respiratory: Clear to Ascultation, Normal Exam Heart: regular Gastrointestinal: Present: normoactive bowel sounds Integumentary: no rash, cool/clammy Neurologic: asterixis/tremulous, confused - Vital Signs Vital signs: Vital Signs - 12hr 10/08/21 10/08/21 10/08/21 21:29 21:36 22:26 Temperature Pulse Rate 67 76 Respiratory Rate Blood Pressure 152/83 O2 Sat by Pulse 97 Oximetry 10/08/21 10/09/21 10/09/21 23:30 04:39 08:05 Temperature 98.6 F 98.4 F 98.5 F Pulse Rate 79 72 Respiratory 20 20 18 Rate Blood Pressure 148/86 147/96 165/79 O2 Sat by Pulse 97 100 Oximetry - Lab 10/08/21 04:56 10/08/21 04:56 Most recent lab results Calcium 9.0 mg/dL (8.4-10.2) 10/08/21 04:56 Urine Creatinine 234.3 mg/dL (0.1-20.0) H 10/06/21 14:04 Urine Total Protein 28 mg/dL (5-11.8) H 10/06/21 14:04 Medications & Allergies - Medications Allergies/Adverse Reactions: Allergies No Known Allergies Allergy (Verified 05/09/21 13:32) Home Medications: Home Medications Medication Instructions Recorded Confirmed Last Taken Type Furosemide [Lasix TAB] 40 mg PO QDAY #30 tablet 05/10/21 10/08/21 Unknown Rx carvediloL [Coreg] 6.25 mg PO BID #60 tablet 05/11/21 10/08/21 Unknown Rx NIFEdipine [Nifedipine ER] 60 mg PO DAILY #30 tab 05/13/21 10/08/21 Unknown Rx Valsartan [Diovan] 160 mg PO QDAY #30 tablet 05/13/21 10/08/21 Unknown Rx Active Medications: Generic Name Dose Route Start Last Admin Trade Name Freq PRN Reason Stop Dose Admin Acetaminophen 650 mg 10/06/21 01:42 Acetaminophen 325 Mg Tab PO Q4H PRN Pain MILD(1-3)/Fever >100.5/MARROQUIN Aspirin 81 mg 10/08/21 10:00 10/09/21 09:09 Aspirin 81 Mg Tab Chew PO 81 mg QDAY FREDI Administration Atorvastatin Calcium 40 mg 10/06/21 22:00 10/08/21 22:27 Atorvastatin 40 Mg Tab PO 40 mg QHS FREDI Administration Bisacodyl 10 mg 10/06/21 01:42 Bisacodyl 10 Mg Rect Supp [place] QDAY PRN Constipation Carvedilol 6.25 mg 10/07/21 10:00 10/09/21 09:09 Carvedilol 6.25 Mg Tab PO 6.25 mg BID FREDI Administration Dextrose 50 ml 10/06/21 01:42 Dextrose 50% In Water (25gm) 50 Ml Syringe IV Q30MIN PRN Hypoglycemia Protocol Famotidine 20 mg 10/07/21 10:00 10/09/21 09:09 Famotidine 20 Mg Tab PO 20 mg DAILY FREDI Administration Heparin Sodium (Porcine) 5,000 unit 10/06/21 14:00 10/09/21 06:54 Heparin 5,000 Unit/1 Ml Vial SUB-Q 5,000 unit Q8HR FREDI Administration Hydralazine HCl 10 mg 10/06/21 18:38 10/08/21 00:41 Hydralazine 20 Mg/1 Ml Inj IV 10 mg Q4HR PRN Administration Hypertension Sodium Chloride 100 mls @ 999 mls/hr 10/06/21 02:34 Nacl 0.9% IV DESHAWN PRN Hypotension Sodium Chloride 1,000 mls @ 100 mls/hr 10/06/21 15:00 10/07/21 02:37 Nacl 0.9% 1000 Ml IV 100 mls/hr DIRECT FREDI Administration Magnesium Hydroxide 30 ml 10/06/21 01:42 Magnesium Hydroxide (Mom) Oral Liqd Udc PO Q4H PRN Constipation Metoclopramide HCl 2.5 mg 10/06/21 01:59 Metoclopramide 10 Mg/10 Ml Oral Liqd PO Q6H PRN Nausea And Vomiting Nifedipine 90 mg 10/09/21 10:00 10/09/21 09:09 Nifedipine Xl 90 Mg Tab PO 90 mg QDAY FREDI Administration Ondansetron HCl 4 mg 10/06/21 01:42 Ondansetron 4 Mg/2 Ml Inj IV Q8H PRN Nausea And Vomiting Promethazine HCl 25 mg 10/06/21 01:42 Promethazine 25 Mg Rect Supp [place] Q6H PRN Nausea And Vomiting Sodium Chloride 10 ml 10/06/21 10:00 10/09/21 09:09 Sodium Chloride 0.9% 10 Ml Flush Syringe IV 10 ml BID FREDI Administration Sodium Chloride 10 ml 10/06/21 01:42 Sodium Chloride 0.9% 10 Ml Flush Syringe IV PRN PRN LINE FLUSH
[2021-10-09 14:03] LABS: ABG Base Excess -1.5 mmol/L (-2.0-3.0); ABG HCO3 22.5 mmol/L (20.0-26.0); ABG Methemoglobin 0.5 % (0.0-1.5); ABG Oxygen Saturation 96.4 % (95.0-99.0); ABG PCO2 35.1 mm Hg; ABG PH 7.425 pH Units (7.350-7.450); ABG PO2 75.9 mm Hg (80.0-90.0)
--- NOTE | 2021-10-09 17:33 | Progress Note ---
Assessment and Plan 71-year-old male resident of [facility] with known history of hypertension , CHF sent to the emergency room for evaluation of changes in mental status since yesterday. Patient was said not to be his normal self over the past 24 hours. Patient unable to give any good history at this time most of the information was obtained from the ER staff. Work-up in the emergency room , labs were significant for leukocytosis of 11.3, potassium of 7.7, BUN to 216 and creatinine of 18.1. EKG shows some peaked T waves. CT scan of the head consistent with features of microvascular ischemia bilateral lacunar infarcts within the basal ganglia and left central semiovale. Area of hypoattenuation involving the right temporal lobe. Subacute ischemia is not excluded. MRI recommended for further evaluation. Teleneurology consulted by the ER physician and recommendation was to have CVA work-up. Crm Dynamics Developer was also consulted regarding lab findings and EKG findings and admitted dialysis was recommended. Patient awake confused, not oriented.Says has history of smoking. However based on patients mental status does not know how reliable it is. Denies chest pain, shortness of breath. Patient is on room air. O2 saturation 100%. No acute respiratory distress. Patient afebrile. No leukocytosis. Blood pressure 126/67, Pulse 69, Respirations 18. Patient is on Nifedipine, Hydralogine, coreg.Blood pressure management as per primary care. Chest ray done 10/06/21 reported Mild bibasilar linear atelectatic change. Mild chronic changes. No definite pneumonic infiltrates or effusions. No pneumothorax. Patient is on S/C Heparin and famotidine. - Patient Problems (1) CVA (cerebral vascular accident) Current Visit: Yes Status: Acute Plan to address problem: Management as per primary care and neurology. (2) Altered mental status Current Visit: Yes Status: Acute Plan to address problem: Management as per primary care. (3) HARDIK (acute kidney injury) Current Visit: Yes Status: Acute Plan to address problem: Management as per nephrology. (4) Bilateral lower leg cellulitis Current Visit: No Status: Acute Plan to address problem: Recommend to consult infectious diseases. Subjective Date of service: 10/09/21 Interval history: 71-year-old male resident of [facility] with known history of hypertension , CHF sent to the emergency room for evaluation of changes in mental status since yesterday. Patient was said not to be his normal self over the past 24 hours. Patient unable to give any good history at this time most of the information was obtained from the ER staff. Work-up in the emergency room , labs were significant for leukocytosis of 11.3, potassium of 7.7, BUN to 216 and creatinine of 18.1. EKG shows some peaked T waves. CT scan of the head consistent with features of microvascular ischemia bilateral lacunar infarcts within the basal ganglia and left central semiovale. Area of hypoattenuation involving the right temporal lobe. Subacute ischemia is not excluded. MRI recommended for further evaluation. Teleneurology consulted by the ER physician and recommendation was to have CVA work-up. Crm Dynamics Developer was also consulted regarding lab findings and EKG findings and admitted dialysis was recommended. Patient awake confused, not oriented.Says has history of smoking. However based on patients mental status does not know how reliable it is. Denies chest pain, shortness of breath. Patient is on room air. O2 saturation 100%. No acute respiratory distress. Patient afebrile. No leukocytosis. Blood pressure 126/67, Pulse 69, Respirations 18. Patient is on Nifedipine, Hydralogine, coreg.Blood pressure management as per primary care. Chest ray done 10/06/21 reported Mild bibasilar linear atelectatic change. Mild chronic changes. No definite pneumonic infiltrates or effusions. No pneumothorax. Patient is on S/C Heparin and famotidine. Objective Vital Signs - 12hr 10/09/21 10/09/21 10/09/21 08:05 10:00 11:00 Temperature 98.5 F Pulse Rate 72 65 Respiratory 18 18 Rate Blood Pressure 165/79 O2 Sat by Pulse 100 96 Oximetry 10/09/21 10/09/21 11:38 16:35 Temperature 97.8 F 98.6 F Pulse Rate 61 69 Respiratory 18 18 Rate Blood Pressure 137/84 126/67 O2 Sat by Pulse 99 100 Oximetry Constitutional: no acute distress, alert, other (Confused. Not oriented.) Eyes: non-icteric ENT: oropharynx moist Neck: supple, no lymphadenopathy Effort: normal Ascultation: Bilateral: diminished breath sounds Cardiovascular: regular rate and rhythm Gastrointestinal: normoactive bowel sounds, soft, non-tender Integumentary: cellulitis Extremities: other (Stasis dermatitis.) Neurologic: pupils equal and round, unable to assess Psychiatric: other (Confused. Not oriented.) CBC and BMP: 10/08/21 04:56 10/08/21 04:56 ABG, PT/INR, D-dimer: ABG ABG pH 7.425 pH Units (7.350-7.450) 10/09/21 13:45 ABG pCO2 35.1 mm Hg 10/09/21 13:45 ABG pO2 75.9 mm Hg (80.0-90.0) L 10/09/21 13:45 ABG O2 Saturation 96.4 % (95.0-99.0) 10/09/21 13:45 PT/INR, D-dimer PT 16.6 Sec. (12.2-14.9) H 10/05/21 21:39 INR 1.20 (0.87-1.13) H 10/05/21 21:39 Abnormal lab findings: Abnormal Labs 10/05/21 10/05/21 10/05/21 21:39 21:39 22:41 WBC 11.3 H RBC Hgb Hct RDW 15.3 H Plt Count Lymph % (Auto) 7.6 L [place] % (Auto) 7.7 H Lymph # (Auto) 0.9 L [place] # (Auto) 0.9 H Seg Neutrophils % 83.7 H Seg Neutrophils # 9.5 H PT 16.6 H INR 1.20 H ABG pO2 ABG Hemoglobin Oxyhemoglobin Sodium Potassium Chloride Carbon Dioxide BUN Creatinine Glucose POC Glucose Calcium ALT Ammonia Total Protein Triglycerides Cholesterol LDL Cholesterol Direct HDL Cholesterol PTH Intact Urine Creatinine Urine Total Protein Salicylates < 0.3 L 10/05/21 10/05/21 10/06/21 22:41 22:41 04:21 WBC RBC Hgb Hct RDW Plt Count Lymph % (Auto) [place] % (Auto) Lymph # (Auto) [place] # (Auto) Seg Neutrophils % Seg Neutrophils # PT INR ABG pO2 ABG Hemoglobin Oxyhemoglobin Sodium Potassium 7.7 H* 6.1 H* D Chloride Carbon Dioxide 19 L BUN 216 H 224 H Creatinine 18.1 H 19.7 H Glucose 117 H 64 L POC Glucose Calcium 11.0 H ALT < 5 L Ammonia 14.0 L Total Protein 8.3 H Triglycerides Cholesterol LDL Cholesterol Direct HDL Cholesterol PTH Intact Urine Creatinine Urine Total Protein Salicylates 10/06/21 10/06/21 10/06/21 04:21 14:04 17:30 WBC RBC Hgb Hct RDW Plt Count Lymph % (Auto) [place] % (Auto) Lymph # (Auto) [place] # (Auto) Seg Neutrophils % Seg Neutrophils # PT INR ABG pO2 ABG Hemoglobin Oxyhemoglobin Sodium Potassium Chloride Carbon Dioxide BUN 131 H Creatinine 12.7 H Glucose 157 H POC Glucose Calcium ALT Ammonia Total Protein Triglycerides 382 H Cholesterol 273 H LDL Cholesterol Direct 151 H HDL Cholesterol 27 L PTH Intact Urine Creatinine 234.3 H Urine Total Protein 28 H Salicylates 10/07/21 10/07/21 10/07/21 05:14 05:14 05:14 WBC RBC 3.37 L Hgb 10.0 L Hct 30.1 L D RDW Plt Count 117 L Lymph % (Auto) 10.4 L [place] % (Auto) 7.9 H Lymph # (Auto) 0.7 L [place] # (Auto) Seg Neutrophils % 80.2 H Seg Neutrophils # PT INR ABG pO2 ABG Hemoglobin Oxyhemoglobin Sodium Potassium Chloride Carbon Dioxide BUN 123 H Creatinine 10.9 H Glucose 119 H POC Glucose Calcium ALT Ammonia Total Protein Triglycerides Cholesterol LDL Cholesterol Direct HDL Cholesterol PTH Intact 333.5 H Urine Creatinine Urine Total Protein Salicylates 10/07/21 10/08/21 10/08/21 21:43 04:56 04:56 WBC RBC 3.59 L Hgb 10.4 L Hct 32.2 L RDW Plt Count 116 L Lymph % (Auto) [place] % (Auto) Lymph # (Auto) [place] # (Auto) Seg Neutrophils % Seg Neutrophils # PT INR ABG pO2 ABG Hemoglobin Oxyhemoglobin Sodium 147 H Potassium Chloride 109.8 H Carbon Dioxide 20 L BUN 123 H Creatinine 9.7 H Glucose 110 H POC Glucose 144 H Calcium ALT Ammonia Total Protein Triglycerides Cholesterol LDL Cholesterol Direct HDL Cholesterol PTH Intact Urine Creatinine Urine Total Protein Salicylates 10/08/21 10/08/21 10/09/21 11:22 15:36 12:36 WBC RBC Hgb Hct RDW Plt Count Lymph % (Auto) [place] % (Auto) Lymph # (Auto) [place] # (Auto) Seg Neutrophils % Seg Neutrophils # PT INR ABG pO2 ABG Hemoglobin Oxyhemoglobin Sodium Potassium Chloride Carbon Dioxide BUN Creatinine Glucose POC Glucose 145 H 139 H 121 H Calcium ALT Ammonia Total Protein Triglycerides Cholesterol LDL Cholesterol Direct HDL Cholesterol PTH Intact Urine Creatinine Urine Total Protein Salicylates 10/09/21 13:45 WBC RBC Hgb Hct RDW Plt Count Lymph % (Auto) [place] % (Auto) Lymph # (Auto) [place] # (Auto) Seg Neutrophils % Seg Neutrophils # PT INR ABG pO2 75.9 L ABG Hemoglobin 10.8 L Oxyhemoglobin 94.8 L Sodium Potassium Chloride Carbon Dioxide BUN Creatinine Glucose POC Glucose Calcium ALT Ammonia Total Protein Triglycerides Cholesterol LDL Cholesterol Direct HDL Cholesterol PTH Intact Urine Creatinine Urine Total Protein Salicylates
[2021-10-10 05:56] LABS: Calcium 9.4 mg/dL (8.4-10.2)
[2021-10-10] MEDS: HEPARIN 5,000 UNIT/1 ML VIAL SUB-Q SCH ×3 (06:33→23:09)
--- NOTE | 2021-10-10 09:47 | Progress Note ---
Assessment and Plan Assessment and plan: 10/06: Remains altered but stable on 2L NC, VSS. Still hyperkalemic this am, HD in progress at the bedside. Repeat BMP a hour after HD. CT head/Brain noted. Continue CVA workup, MRI brain, US carotid, and 2D echo pending. Neurology consulted. Patient is hypoglycemic this am, s/p IV insulin for hyperkalemia, continue BG check and hypoglycemic protocol. Will order diet if patient pass bedside swallow. PT/OT/Speech consulted. Left big toe ulcer noted. Per patient's daughter, patient is following with Vascular Surgery outpatient, revascularization was performed in the [facility] in the past and they were talking of possibly amputating that left toe. No evidence of any infectious process at this time and patient is currently hemodynamicaly stable. Will get wound care for wound management. Follow up with Vascular surgery outpatient for further management. 10/07: Increased confusion and agitation required wrist restraints overnight for safety. Patient is still confused this am, but calm and cooperative. MRI brain pending. Patient tolerated HD yesterday. Hypertensive this am, resumed home meds and continue PRN antihypertensives. Continue HD per Nephro. Patient is stable for transfer to Telemetry. 10/09/2021; patient is slightly agitated requiring restraints Awaiting return to SNF when medically stable Nephrology initiated hemodialysis, HD as needed If renal decides that patient needs long-term hemodialysis Case management will assist with outpatient HD chair scheduling MRI brain show extensive chronic and age-related changes Punctate focus of increased diffusion-weighted signal in the left thalamic area This may be an evidence of recent or acute left thalamic infarction Continue current management PT evaluated the patient and recommended subacute rehab or [facility] for transition to LTAC DC planning per case management Assessment and Plan #Acute Metabolic Encephalopathy Multifactorial, treat the underlying cause Supportive care #R/O CVA/acute CVA - Presented with alerted mental status - Probably due to azotemia, but will also r/o acute cva - CT head/brain noted, please see report for full details - Patient is still pleasantly confused this am, still moving all extremities - No significant neuro deficits appreciated - MRI brain, Carotid US,2D Echo pending - ASA and Statin initiated - Continue Neuro check per protocol - PT/OT/Speech ordered - Neurology consulted, appreciated recommendations - VTE proph- Heparin SubQ Acute on Chronic Kidney Disease; Nephrology evaluated, initiated hemodialysis on 10/06/21 HD per schedule, outpatient HD chair placement if needed #Severe Hyperkalemia- resolved -Initial potassium was 7.1, managed appropriately Currently hemodialysis per schedule #Hypertension; moderate control Continue current antihypertensives As needed hydralazine Closely monitor #Big Toe Ulcer, Left/wound dressing. Elevate the limb Supportive care - Left big toe ulcer noted - Per patient's daughter, patient is following with Vascular Surgery outpatient, revascularization was performed in the [facility] in the past and they were talking of possibly amputating that left toe. - No evidence of any infectious process at this time and patient is currently hemodynamicaly stable - Will get wound care for wound management - Follow up with Vascular Surgery outpatient for further management. #Hypoglycemia-resolved - Received IV insulin for hyperkalemia - BG improved post IV D50w per hypoglycemic protocol - Continue BG check Q6hrs - Continue Hypoglycemic protocol - On pureed diet per Speech therapy - Avoid hypoglycemia #GI/DVT Prophylaxis - PPI- Pepcid - Heparin SubQ - SCDs to bilateral lower extremities while in bed #Advance Care Planning - Disease education data, care plan, diagnoses, and prognosis were discussed with patient's daughter. Patient is a FULL code. Patient's daughter acknowledged understanding and agreement with current care plan. Closely monitor the patient and adjust the management as needed Plan of care reviewed with the patient and his nurse Discharge planning; PT recommended subacute rehab versus [facility] facility Patient would return to [facility] facility when medically stable DC planning per case management when medically stable Plan of care reviewed with the patient. His nurse History Interval history: I have seen and examined the patient at the bedside Patient's chart and medications reviewed No new events reported by the nursing Vital signs noted Patient scheduled for hemodialysis today Hospitalist Physical - Constitutional Vitals: Temp Pulse Resp BP Pulse Ox 98.5 F 55 L 18 163/84 100 10/10/21 08:07 10/10/21 08:07 10/10/21 03:54 10/10/21 08:07 10/10/21 08:07 General appearance: Present: no acute distress, cachectic - EENT Eyes: Present: PERRL, EOM intact - Neck Neck: Present: supple, normal ROM - Respiratory Respiratory effort: normal Respiratory: bilateral: diminished, negative: rales, rhonchi, wheezing - Cardiovascular Rhythm: regular Heart Sounds: Present: S1 & S2 - Extremities Extremities: no ischemia, No edema - Abdominal General gastrointestinal: soft, non-tender, non-distended, normal bowel sounds - Integumentary Integumentary: Present: clear, warm - Psychiatric Psychiatric: appropriate mood/affect, other (Confused at times) - Neurologic Neurologic: moves all extremities (CVA with residual weakness) Results - Labs CBC & Chem 7: 10/08/21 04:56 10/10/21 05:09 Labs: Laboratory Last Values WBC 6.6 K/mm3 (4.5-11.0) 10/08/21 04:56 RBC 3.59 M/mm3 (3.65-5.03) L 10/08/21 04:56 Hgb 10.4 gm/dl (11.8-15.2) L 10/08/21 04:56 Hct 32.2 % (35.5-45.6) L 10/08/21 04:56 MCV 90 fl (84-94) 10/08/21 04:56 MCH 29 pg (28-32) 10/08/21 04:56 MCHC 32 % (32-34) 10/08/21 04:56 RDW 15.1 % (13.2-15.2) 10/08/21 04:56 Plt Count 116 K/mm3 (140-440) L 10/08/21 04:56 Lymph % (Auto) 10.4 % (13.4-35.0) L 10/07/21 05:14 [place] % (Auto) 7.9 % (0.0-7.3) H 10/07/21 05:14 Eos % (Auto) 0.4 % (0.0-4.3) 10/07/21 05:14 Baso % (Auto) 1.1 % (0.0-1.8) 10/07/21 05:14 Lymph # (Auto) 0.7 K/mm3 (1.2-5.4) L 10/07/21 05:14 [place] # (Auto) 0.5 K/mm3 (0.0-0.8) 10/07/21 05:14 Eos # (Auto) 0.0 K/mm3 (0.0-0.4) 10/07/21 05:14 Baso # (Auto) 0.1 K/mm3 (0.0-0.1) 10/07/21 05:14 Seg Neutrophils % 80.2 % (40.0-70.0) H 10/07/21 05:14 Seg Neutrophils # 5.4 K/mm3 (1.8-7.7) 10/07/21 05:14 PT 16.6 Sec. (12.2-14.9) H 10/05/21 21:39 INR 1.20 (0.87-1.13) H 10/05/21 21:39 ABG pH 7.425 pH Units (7.350-7.450) 10/09/21 13:45 ABG pCO2 35.1 mm Hg 10/09/21 13:45 ABG pO2 75.9 mm Hg (80.0-90.0) L 10/09/21 13:45 ABG HCO3 22.5 mmol/L (20.0-26.0) 10/09/21 13:45 ABG O2 Saturation 96.4 % (95.0-99.0) 10/09/21 13:45 ABG O2 Content 14.5 (0.0-44) 10/09/21 13:45 ABG Base Excess -1.5 mmol/L (-2.0-3.0) 10/09/21 13:45 ABG Hemoglobin 10.8 gm/dl (14.0-18.0) L 10/09/21 13:45 ABG Carboxyhemoglobin 1.2 % (0.0-5.0) 10/09/21 13:45 ABG Methemoglobin 0.5 % (0.0-1.5) 10/09/21 13:45 Oxyhemoglobin 94.8 % (95.0-99.0) L 10/09/21 13:45 FiO2 21 % 10/09/21 13:45 Sodium 147 mmol/L (137-145) H 10/10/21 05:09 Potassium 4.1 mmol/L (3.6-5.0) 10/10/21 05:09 Chloride 109.0 mmol/L (98-107) H 10/10/21 05:09 Carbon Dioxide 23 mmol/L (22-30) 10/10/21 05:09 Anion Gap 19 mmol/L 10/10/21 05:09 BUN 103 mg/dL (9-20) H 10/10/21 05:09 Creatinine 6.8 mg/dL (0.8-1.3) H 10/10/21 05:09 Estimated GFR 10 ml/min 10/10/21 05:09 BUN/Creatinine Ratio 15 % 10/10/21 05:09 Glucose 108 mg/dL (75-100) H 10/10/21 05:09 POC Glucose 108 mg/dL (70-105) H 10/10/21 00:16 Calcium 9.4 mg/dL (8.4-10.2) 10/10/21 05:09 Total Bilirubin 0.50 mg/dL (0.1-1.2) 10/05/21 22:41 AST 11 units/L (5-40) 10/05/21 22:41 ALT < 5 units/L (7-56) L 10/05/21 22:41 Alkaline Phosphatase 64 units/L (35-129) 10/05/21 22:41 Ammonia 14.0 umol/L (25-60) L 10/05/21 22:41 Total Protein 8.3 g/dL (6.3-8.2) H 10/05/21 22:41 Albumin 4.9 g/dL (3.9-5) 10/05/21 22:41 Albumin/Globulin Ratio 1.4 % 10/05/21 22:41 Triglycerides 382 mg/dL (2-149) H 10/06/21 04:21 Cholesterol 273 mg/dL (50-199) H 10/06/21 04:21 LDL Cholesterol Direct 151 mg/dL (50-130) H 10/06/21 04:21 HDL Cholesterol 27 mg/dL (40-59) L 10/06/21 04:21 Cholesterol/HDL Ratio 10.11 % 10/06/21 04:21 PTH Intact 333.5 pg/mL (15-65) H 10/07/21 05:14 Urine Color Yellow (Yellow) 10/06/21 Unknown Urine Turbidity Clear (Clear) 10/06/21 Unknown Urine pH 5.0 (5.0-7.0) 10/06/21 Unknown Ur Specific [place] 1.015 (1.003-1.030) 10/06/21 Unknown Urine Protein <15 mg/dl mg/dL (Negative) 10/06/21 Unknown Urine Glucose (UA) Neg mg/dL (Negative) 10/06/21 Unknown Urine Ketones Neg mg/dL (Negative) 10/06/21 Unknown Urine Blood Sm (Negative) 10/06/21 Unknown Urine Nitrite Neg (Negative) 10/06/21 Unknown Urine Bilirubin Neg (Negative) 10/06/21 Unknown Urine Urobilinogen < 2.0 mg/dL (<2.0) 10/06/21 Unknown Ur Leukocyte Esterase Neg (Negative) 10/06/21 Unknown Urine WBC (Auto) 2.0 /HPF (0.0-6.0) 10/06/21 Unknown Urine RBC (Auto) 4.0 /HPF (0.0-6.0) 10/06/21 Unknown U Epithel Cells (Auto) 3.0 /HPF (0-13.0) 10/06/21 Unknown Urine Bacteria (Auto) 1+ /HPF (Negative) 10/06/21 Unknown Hyaline Casts 14 /LPF 10/06/21 Unknown Urine Mucus Few /HPF 10/06/21 Unknown Urine Yeast (Budding) 2+ /HPF 10/06/21 Unknown Urine Creatinine 234.3 mg/dL (0.1-20.0) H 10/06/21 14:04 Protein/Creatinin Ratio 0.12 10/06/21 14:04 Urine Total Protein 28 mg/dL (5-11.8) H 10/06/21 14:04 Salicylates < 0.3 mg/dL (2.8-20.0) L 10/05/21 22:41 Urine Opiates Screen Presumptive negative 10/06/21 Unknown Urine Methadone Screen Presumptive negative 10/06/21 Unknown Ur Barbiturates Screen Presumptive negative 10/06/21 Unknown Ur Phencyclidine Scrn Presumptive negative 10/06/21 Unknown Ur Amphetamines Screen Presumptive negative 10/06/21 Unknown U Benzodiazepines Scrn Presumptive negative 10/06/21 Unknown Urine Cocaine Screen Presumptive negative 10/06/21 Unknown U Marijuana (THC) Screen Presumptive negative 10/06/21 Unknown Drugs of Abuse Note Disclamer 10/06/21 Unknown Plasma/Serum Alcohol < 0.01 % (0-0.07) 10/05/21 21:39 Hepatitis A IgM Ab Non-reactive (NonReactive) 10/06/21 09:12 Hep Bs Antigen Non-reactive (Negative) 10/06/21 09:12 Hep B Core IgM Ab Non-reactive (NonReactive) 10/06/21 09:12 Hepatitis C Antibody Non-reactive (NonReactive) 10/06/21 09:12 Paez/IV: Voiding Method Condom Catheter Active Medications - Current Medications Current Medications: Generic Name Dose Route Start Last Admin Trade Name Freq PRN Reason Stop Dose Admin Acetaminophen 650 mg 10/06/21 01:42 Acetaminophen 325 Mg Tab PO Q4H PRN Pain MILD(1-3)/Fever >100.5/MARROQUIN Aspirin 81 mg 10/08/21 10:00 10/09/21 09:09 Aspirin 81 Mg Tab Chew PO 81 mg QDAY FREDI Administration Atorvastatin Calcium 40 mg 10/06/21 22:00 10/09/21 21:57 Atorvastatin 40 Mg Tab PO 40 mg QHS FREDI Administration Bisacodyl 10 mg 10/06/21 01:42 Bisacodyl 10 Mg Rect Supp NV QDAY PRN Constipation Carvedilol 6.25 mg 10/07/21 10:00 10/09/21 21:57 Carvedilol 6.25 Mg Tab PO 6.25 mg BID FREDI Administration Dextrose 50 ml 10/06/21 01:42 Dextrose 50% In Water (25gm) 50 Ml Syringe IV Q30MIN PRN Hypoglycemia Protocol Famotidine 20 mg 10/07/21 10:00 10/09/21 09:09 Famotidine 20 Mg Tab PO 20 mg DAILY FREDI Administration Heparin Sodium (Porcine) 5,000 unit 10/06/21 14:00 10/10/21 06:33 Heparin 5,000 Unit/1 Ml Vial SUB-Q 5,000 unit Q8HR FREDI Administration Hydralazine HCl 10 mg 10/06/21 18:38 10/08/21 00:41 Hydralazine 20 Mg/1 Ml Inj IV 10 mg Q4HR PRN Administration Hypertension Sodium Chloride 100 mls @ 999 mls/hr 10/06/21 02:34 Nacl 0.9% IV DESHAWN PRN Hypotension Sodium Chloride 1,000 mls @ 100 mls/hr 10/06/21 15:00 10/07/21 02:37 Nacl 0.9% 1000 Ml IV 100 mls/hr DIRECT FREDI Administration Magnesium Hydroxide 30 ml 10/06/21 01:42 Magnesium Hydroxide (Mom) Oral Liqd Udc PO Q4H PRN Constipation Metoclopramide HCl 2.5 mg 10/06/21 01:59 Metoclopramide 10 Mg/10 Ml Oral Liqd PO Q6H PRN Nausea And Vomiting Nifedipine 90 mg 10/09/21 10:00 10/09/21 09:09 Nifedipine Xl 90 Mg Tab PO 90 mg QDAY FREDI Administration Ondansetron HCl 4 mg 10/06/21 01:42 Ondansetron 4 Mg/2 Ml Inj IV Q8H PRN Nausea And Vomiting Promethazine HCl 25 mg 10/06/21 01:42 Promethazine 25 Mg Rect Supp NV Q6H PRN Nausea And Vomiting Sodium Chloride 10 ml 10/06/21 10:00 10/09/21 21:57 Sodium Chloride 0.9% 10 Ml Flush Syringe IV 10 ml BID FREDI Administration Sodium Chloride 10 ml 10/06/21 01:42 Sodium Chloride 0.9% 10 Ml Flush Syringe IV PRN PRN LINE FLUSH Nutrition/Malnutrition Assess - Dietary Evaluation Nutrition/Malnutrition Findings: Nutrition Notes Start: 10/06/21 16:50 Freq: Status: Active Protocol: Document 10/06/21 16:50 NOEL (Rec: 10/06/21 17:01 NOEL [id number]) Nutrition Notes Need for Assessment generated from: MD Order,ski production supervisor,MST, Education Initial or Follow up Assessment Current Diagnosis Acute Kidney Injury, Hypertension,Stroke Other Pertinent Diagnosis AMS, HARDIK+HD, Hyperkalemia. Current Diet Pureed Diet (since D 10/06). Labs/Tests 10/06: K 6.1, CO2 19, BUN 224, Crea 19.7, Glu 64, Ca 11.0. Pertinent Medications 10/06: Nutritionally unremarkable. 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 Weight Status Appropriate Subjective/Other Information RD consult for nutrition education assessment. No reports available on Pt's PO intake of meals at the time , will assess at F/U. COAT HANGER SHAPER MACHINE OPERATOR note on 10/06/21 14:53: Patient demonstrates a delayed oral transit time with a swallow reflex of 1 second. No evidence of aspiration was identified. However, per nurse , the patient's family reported that the patient's baseline intake is poor. Recommend a pureed diet with thins with an alternative method of nutrition. - END OF NOTE. Pt is on Nasal Cannula, O2 saturation @ 96%, according to Physical Assessment History notes. Pt shows no signs of concer for risk of malnutrition at the time, according to Physical Assessment History notes. Pt has missing teeth, according to Physical Assessment History notes. Pt is a SNF reesident, according to Progress notes. Pt still in critical condition , not a candidate for Nutrition Education at the time, will assess feasibility on F/U. Percent of energy/protein needs met: Prescribed Pureed Diet provides for energy/protein needs (1,804 Kcal/77 g) during LOS. Burn Absent Trauma Absent GI Symptoms None Food Allergy No Skin Integrity/Comment Unspecified dryness. Minimum of two criteria No Fluid Accumulation N/A Reduced Investment Underwriter Strength N/A (non-severe) Protein-Calorie Malnutrition N\A #1 Nutrition Diagnosis No nutrition diagnosis at this time Comments: Will assess Pt's PO intake of meals at F/U. Is patient on ventilator? No Is Patient Ambulatory and/or Out of Bed No REE-([facility]-confined to bed) 1893.732 Kcal/Kg value to use for calculation 31 Approximate Energy Requirements Using 2320 kcal/Kg Calculation Used for Recommendations Kcal/kg Additional Notes Protein: >1.2 g/Kg IBW; >103 g /day. Fluids: 1 ml/Kcal, or as per MD. Nutrition Intervention Change Diet Order: Continue Pureed Diet. Follow-Up By: 10/13/21 Additional Comments Nutrition education will be provided at F/U, if feasible. Continue monitoring food tolerance, %PO intake of meals , and BM.
[2021-10-10] MEDS: NIFEdipine XL 90 MG TAB PO SCH (10:38)
[2021-10-10] MEDS: FAMOTIDINE 20 MG TAB PO SCH (10:38)
[2021-10-10] MEDS: carvediloL 6.25 MG TAB PO SCH ×2 (10:38→23:09)
[2021-10-10] MEDS: ASPIRIN 81 MG TAB CHEW PO SCH (10:38)
--- NOTE | 2021-10-10 11:56 | Progress Note ---
Subjective Date of service: 10/10/21 Principal diagnosis: esrd Interval history: # Acute Kidney Injury/Kidney Failure: creatinine 18, BUN>200 with hyperkalemia, acidosis, likely uremic effects. Noted to have creatinine 1.2 earlier this year so suspect acute kidney injury - STAT HD started 10/06 for hyperkalemia, azotemia/uremia; s/p daily HD x3 days for now given uremia/azotemia and need to avoid disequilibrium - plan for MWF HD for ongoing solute/toxin management - renal ultrasound acutely WNL, no obstruction - urinalysis reviewed, check serologies to rule out GN injury, still pending - note PTH high, may have secondary to underlying CKD - strict Is/Os- not much urine output noted - assess for renal recovery as able - avoid nephrotoxins - hold diuretics, EMILIANO/ARB for now # HTN: BP stable currently, per primary team due to HTN, Avoid ARB for now given hyperkalemia, HARDIK. Can restart once HARDIK improves or clearly CKD progression # Altered Mentation: unknown baseline, may have uremic effects # CVA: care per primary, neurology Subjective Interval history: No acute events noted, remains drowsy in bed Objective - Exam Narrative Exam: General appearance: no distress, frail EENT: ATNC Neck: Present: neck supple Respiratory: Clear to Ascultation, Normal Exam Heart: regular Gastrointestinal: Present: normoactive bowel sounds Integumentary: no rash, cool/clammy Neurologic: asterixis/tremulous, confused Objective - Vital Signs Vital signs: Vital Signs - 12hr 10/10/21 10/10/21 10/10/21 03:54 05:53 08:07 Temperature 98.2 F 98.5 F Pulse Rate 72 55 L Respiratory 18 Rate Blood Pressure 163/84 Blood Pressure 161/87 [Right] O2 Sat by Pulse 99 96 100 Oximetry - Lab 10/08/21 04:56 10/10/21 05:09 Most recent lab results ABG pH 7.425 pH Units (7.350-7.450) 10/09/21 13:45 ABG pCO2 35.1 mm Hg 10/09/21 13:45 ABG pO2 75.9 mm Hg (80.0-90.0) L 10/09/21 13:45 ABG HCO3 22.5 mmol/L (20.0-26.0) 10/09/21 13:45 ABG O2 Saturation 96.4 % (95.0-99.0) 10/09/21 13:45 Calcium 9.4 mg/dL (8.4-10.2) 10/10/21 05:09 Urine Creatinine 234.3 mg/dL (0.1-20.0) H 10/06/21 14:04 Urine Total Protein 28 mg/dL (5-11.8) H 10/06/21 14:04 Medications & Allergies - Medications Allergies/Adverse Reactions: Allergies No Known Allergies Allergy (Verified 05/09/21 13:32) Home Medications: Home Medications Medication Instructions Recorded Confirmed Last Taken Type Furosemide [Lasix TAB] 40 mg PO QDAY #30 tablet 05/10/21 10/08/21 Unknown Rx carvediloL [Coreg] 6.25 mg PO BID #60 tablet 05/11/21 10/08/21 Unknown Rx NIFEdipine [Nifedipine ER] 60 mg PO DAILY #30 tab 05/13/21 10/08/21 Unknown Rx Valsartan [Diovan] 160 mg PO QDAY #30 tablet 05/13/21 10/08/21 Unknown Rx Active Medications: Generic Name Dose Route Start Last Admin Trade Name Freq PRN Reason Stop Dose Admin Acetaminophen 650 mg 10/06/21 01:42 Acetaminophen 325 Mg Tab PO Q4H PRN Pain MILD(1-3)/Fever >100.5/MARROQUIN Aspirin 81 mg 10/08/21 10:00 10/10/21 10:38 Aspirin 81 Mg Tab Chew PO 81 mg QDAY FREDI Administration Atorvastatin Calcium 40 mg 10/06/21 22:00 10/09/21 21:57 Atorvastatin 40 Mg Tab PO 40 mg QHS FREDI Administration Bisacodyl 10 mg 10/06/21 01:42 Bisacodyl 10 Mg Rect Supp ID QDAY PRN Constipation Carvedilol 6.25 mg 10/07/21 10:00 10/10/21 10:38 Carvedilol 6.25 Mg Tab PO 6.25 mg BID FREDI Administration Dextrose 50 ml 10/06/21 01:42 Dextrose 50% In Water (25gm) 50 Ml Syringe IV Q30MIN PRN Hypoglycemia Protocol Famotidine 20 mg 10/07/21 10:00 10/10/21 10:38 Famotidine 20 Mg Tab PO 20 mg DAILY FREDI Administration Heparin Sodium (Porcine) 5,000 unit 10/06/21 14:00 10/10/21 06:33 Heparin 5,000 Unit/1 Ml Vial SUB-Q 5,000 unit Q8HR FREDI Administration Hydralazine HCl 10 mg 10/06/21 18:38 10/08/21 00:41 Hydralazine 20 Mg/1 Ml Inj IV 10 mg Q4HR PRN Administration Hypertension Sodium Chloride 1,000 mls @ 100 mls/hr 10/06/21 15:00 10/07/21 02:37 Nacl 0.9% 1000 Ml IV 100 mls/hr DIRECT FREDI Administration Magnesium Hydroxide 30 ml 10/06/21 01:42 Magnesium Hydroxide (Mom) Oral Liqd Udc PO Q4H PRN Constipation Metoclopramide HCl 2.5 mg 10/06/21 01:59 Metoclopramide 10 Mg/10 Ml Oral Liqd PO Q6H PRN Nausea And Vomiting Nifedipine 90 mg 10/09/21 10:00 10/10/21 10:38 Nifedipine Xl 90 Mg Tab PO 90 mg QDAY FREDI Administration Ondansetron HCl 4 mg 10/06/21 01:42 Ondansetron 4 Mg/2 Ml Inj IV Q8H PRN Nausea And Vomiting Promethazine HCl 25 mg 10/06/21 01:42 Promethazine 25 Mg Rect Supp ID Q6H PRN Nausea And Vomiting Sodium Chloride 10 ml 10/06/21 10:00 10/10/21 10:38 Sodium Chloride 0.9% 10 Ml Flush Syringe IV 10 ml BID FREDI Administration Sodium Chloride 10 ml 10/06/21 01:42 Sodium Chloride 0.9% 10 Ml Flush Syringe IV PRN PRN LINE FLUSH
--- NOTE | 2021-10-10 12:31 | Progress Note ---
Assessment and Plan Acute toxic metabolic encephalopathy Acute kidney injury Severe hyperkalemia Hypertension CMOP Mild leukocytosis - prn supplemental oxygen to keep O2 sats > 90% - prn bronchodilators (MAY) with pulm hygiene per RT - continue to avoid nephrotoxins, renally dose all medications - continue mobility protocols to prevent pressure ulcers - PT/OT as tolerated - Wound care per RN/WCT - continue accuchecks with glycemic control per SSI for target blood glucose < 180 mg/dL - tobacco abstinence strongly counseled at the bedside - home oxygen evaluation at discharge - prn analgesia per pain score - GI & VTE prophylaxis - Flu & pneumovax per protocol - Pulmonary out patient follow up for PFTs and optimization of respiratory status - continue other care per attending / other consultants ... re-evaluate in am & prn Subjective Date of service: 10/10/21 Principal diagnosis: AMS; HARDIK; Severe hyperkalemia; Hypertension; CMOP; Mild leukocytosis Interval history: Patient is seen today for: Acute toxic metabolic encephalopathy; Acute kidney injury; Severe hyperkalemia; Hypertension; CMOP; Mild leukocytosis Seen and examined at bedside; 24hour events reviewed; nursing and respiratory care staff consulted; no adverse overnight events reported to me; resting in bed; denies chest pain; slept well; no N/V/F/C Objective Vital Signs - 12hr 10/10/21 10/10/21 10/10/21 03:54 05:53 08:07 Temperature 98.2 F 98.5 F Pulse Rate 72 55 L Respiratory 18 Rate Blood Pressure 163/84 Blood Pressure 161/87 [Right] O2 Sat by Pulse 99 96 100 Oximetry 10/10/21 11:24 Temperature 98.3 F Pulse Rate 64 Respiratory Rate Blood Pressure 100/60 Blood Pressure [Right] O2 Sat by Pulse 98 Oximetry Constitutional: no acute distress, alert, other (dementia) Eyes: non-icteric ENT: oropharynx moist Neck: supple, no lymphadenopathy Effort: normal Ascultation: Bilateral: diminished breath sounds Cardiovascular: regular rate and rhythm Gastrointestinal: normoactive bowel sounds, soft, non-tender Integumentary: cellulitis Extremities: other (Stasis dermatitis.) Neurologic: pupils equal and round, unable to assess Psychiatric: other (Confused. Not oriented.) CBC and BMP: 10/14/21 04:40 10/14/21 04:40 ABG, PT/INR, D-dimer: ABG ABG pH 7.425 pH Units (7.350-7.450) 10/09/21 13:45 ABG pCO2 35.1 mm Hg 10/09/21 13:45 ABG pO2 75.9 mm Hg (80.0-90.0) L 10/09/21 13:45 ABG O2 Saturation 96.4 % (95.0-99.0) 10/09/21 13:45 PT/INR, D-dimer PT 16.6 Sec. (12.2-14.9) H 10/05/21 21:39 INR 1.20 (0.87-1.13) H 10/05/21 21:39 Abnormal lab findings: Abnormal Labs 10/05/21 10/05/21 10/05/21 21:39 21:39 22:41 WBC 11.3 H RBC Hgb Hct RDW 15.3 H Plt Count Lymph % (Auto) 7.6 L Walsh % (Auto) 7.7 H Lymph # (Auto) 0.9 L Walsh # (Auto) 0.9 H Seg Neutrophils % 83.7 H Seg Neutrophils # 9.5 H PT 16.6 H INR 1.20 H ABG pO2 ABG Hemoglobin Oxyhemoglobin Sodium Potassium Chloride Carbon Dioxide BUN Creatinine Glucose POC Glucose Calcium ALT Ammonia Total Protein Triglycerides Cholesterol LDL Cholesterol Direct HDL Cholesterol PTH Intact Urine Creatinine Urine Total Protein Salicylates < 0.3 L 10/05/21 10/05/21 10/06/21 22:41 22:41 04:21 WBC RBC Hgb Hct RDW Plt Count Lymph % (Auto) Walsh % (Auto) Lymph # (Auto) Walsh # (Auto) Seg Neutrophils % Seg Neutrophils # PT INR ABG pO2 ABG Hemoglobin Oxyhemoglobin Sodium Potassium 7.7 H* 6.1 H* D Chloride Carbon Dioxide 19 L BUN 216 H 224 H Creatinine 18.1 H 19.7 H Glucose 117 H 64 L POC Glucose Calcium 11.0 H ALT < 5 L Ammonia 14.0 L Total Protein 8.3 H Triglycerides Cholesterol LDL Cholesterol Direct HDL Cholesterol PTH Intact Urine Creatinine Urine Total Protein Salicylates 10/06/21 10/06/21 10/06/21 04:21 14:04 17:30 WBC RBC Hgb Hct RDW Plt Count Lymph % (Auto) Walsh % (Auto) Lymph # (Auto) Walsh # (Auto) Seg Neutrophils % Seg Neutrophils # PT INR ABG pO2 ABG Hemoglobin Oxyhemoglobin Sodium Potassium Chloride Carbon Dioxide BUN 131 H Creatinine 12.7 H Glucose 157 H POC Glucose Calcium ALT Ammonia Total Protein Triglycerides 382 H Cholesterol 273 H LDL Cholesterol Direct 151 H HDL Cholesterol 27 L PTH Intact Urine Creatinine 234.3 H Urine Total Protein 28 H Salicylates 10/07/21 10/07/21 10/07/21 05:14 05:14 05:14 WBC RBC 3.37 L Hgb 10.0 L Hct 30.1 L D RDW Plt Count 117 L Lymph % (Auto) 10.4 L Walsh % (Auto) 7.9 H Lymph # (Auto) 0.7 L Walsh # (Auto) Seg Neutrophils % 80.2 H Seg Neutrophils # PT INR ABG pO2 ABG Hemoglobin Oxyhemoglobin Sodium Potassium Chloride Carbon Dioxide BUN 123 H Creatinine 10.9 H Glucose 119 H POC Glucose Calcium ALT Ammonia Total Protein Triglycerides Cholesterol LDL Cholesterol Direct HDL Cholesterol PTH Intact 333.5 H Urine Creatinine Urine Total Protein Salicylates 10/07/21 10/08/21 10/08/21 21:43 04:56 04:56 WBC RBC 3.59 L Hgb 10.4 L Hct 32.2 L RDW Plt Count 116 L Lymph % (Auto) Walsh % (Auto) Lymph # (Auto) Walsh # (Auto) Seg Neutrophils % Seg Neutrophils # PT INR ABG pO2 ABG Hemoglobin Oxyhemoglobin Sodium 147 H Potassium Chloride 109.8 H Carbon Dioxide 20 L BUN 123 H Creatinine 9.7 H Glucose 110 H POC Glucose 144 H Calcium ALT Ammonia Total Protein Triglycerides Cholesterol LDL Cholesterol Direct HDL Cholesterol PTH Intact Urine Creatinine Urine Total Protein Salicylates 10/08/21 10/08/21 10/09/21 11:22 15:36 12:36 WBC RBC Hgb Hct RDW Plt Count Lymph % (Auto) Walsh % (Auto) Lymph # (Auto) Walsh # (Auto) Seg Neutrophils % Seg Neutrophils # PT INR ABG pO2 ABG Hemoglobin Oxyhemoglobin Sodium Potassium Chloride Carbon Dioxide BUN Creatinine Glucose POC Glucose 145 H 139 H 121 H Calcium ALT Ammonia Total Protein Triglycerides Cholesterol LDL Cholesterol Direct HDL Cholesterol PTH Intact Urine Creatinine Urine Total Protein Salicylates 10/09/21 10/09/21 10/10/21 13:45 18:01 00:16 WBC RBC Hgb Hct RDW Plt Count Lymph % (Auto) Walsh % (Auto) Lymph # (Auto) Walsh # (Auto) Seg Neutrophils % Seg Neutrophils # PT INR ABG pO2 75.9 L ABG Hemoglobin 10.8 L Oxyhemoglobin 94.8 L Sodium Potassium Chloride Carbon Dioxide BUN Creatinine Glucose POC Glucose 143 H 108 H Calcium ALT Ammonia Total Protein Triglycerides Cholesterol LDL Cholesterol Direct HDL Cholesterol PTH Intact Urine Creatinine Urine Total Protein Salicylates 10/10/21 05:09 WBC RBC Hgb Hct RDW Plt Count Lymph % (Auto) Walsh % (Auto) Lymph # (Auto) Walsh # (Auto) Seg Neutrophils % Seg Neutrophils # PT INR ABG pO2 ABG Hemoglobin Oxyhemoglobin Sodium 147 H Potassium Chloride 109.0 H Carbon Dioxide BUN 103 H Creatinine 6.8 H Glucose 108 H POC Glucose Calcium ALT Ammonia Total Protein Triglycerides Cholesterol LDL Cholesterol Direct HDL Cholesterol PTH Intact Urine Creatinine Urine Total Protein Salicylates
[2021-10-11 05:54] LABS: Calcium 9.1 mg/dL (8.4-10.2)
[2021-10-11] MEDS: HEPARIN 5,000 UNIT/1 ML VIAL SUB-Q SCH ×3 (06:17→22:08)
[2021-10-11] MEDS: FAMOTIDINE 20 MG TAB PO SCH (09:34)
[2021-10-11] MEDS: NIFEdipine XL 90 MG TAB PO SCH (09:34)
[2021-10-11] MEDS: ASPIRIN 81 MG TAB CHEW PO SCH (09:34)
[2021-10-11] MEDS: carvediloL 6.25 MG TAB PO SCH ×2 (09:34→22:08)
--- NOTE | 2021-10-11 11:23 | Progress Note ---
Assessment and Plan Assessment and plan: 10/06: Remains altered but stable on 2L NC, VSS. Still hyperkalemic this am, HD in progress at the bedside. Repeat BMP a hour after HD. CT head/Brain noted. Continue CVA workup, MRI brain, US carotid, and 2D echo pending. Neurology consulted. Patient is hypoglycemic this am, s/p IV insulin for hyperkalemia, continue BG check and hypoglycemic protocol. Will order diet if patient pass bedside swallow. PT/OT/Speech consulted. Left big toe ulcer noted. Per patient's daughter, patient is following with Vascular Surgery outpatient, revascularization was performed in the [facility] in the past and they were talking of possibly amputating that left toe. No evidence of any infectious process at this time and patient is currently hemodynamicaly stable. Will get wound care for wound management. Follow up with Vascular surgery outpatient for further management. 10/07: Increased confusion and agitation required wrist restraints overnight for safety. Patient is still confused this am, but calm and cooperative. MRI brain pending. Patient tolerated HD yesterday. Hypertensive this am, resumed home meds and continue PRN antihypertensives. Continue HD per Nephro. Patient is stable for transfer to Telemetry. 10/09/2021; patient is slightly agitated requiring restraints Awaiting return to SNF when medically stable Nephrology initiated hemodialysis, HD as needed If renal decides that patient needs long-term hemodialysis Case management will assist with outpatient HD chair scheduling MRI brain show extensive chronic and age-related changes Punctate focus of increased diffusion-weighted signal in the left thalamic area This may be an evidence of recent or acute left thalamic infarction Continue current management PT evaluated the patient and recommended subacute rehab or [facility] for transition to LTAC DC planning per case management Assessment and Plan #Acute Metabolic Encephalopathy Multifactorial, treat the underlying cause Supportive care #R/O CVA/acute CVA - Presented with alerted mental status - Probably due to azotemia, but will also r/o acute cva - CT head/brain noted, please see report for full details - Patient is still pleasantly confused this am, still moving all extremities - No significant neuro deficits appreciated - MRI brain, Carotid US,2D Echo pending - ASA and Statin initiated - Continue Neuro check per protocol - PT/OT/Speech ordered - Neurology consulted, appreciated recommendations - VTE proph- Heparin SubQ Acute on Chronic Kidney Disease; Nephrology evaluated, initiated hemodialysis on 10/06/21 HD per schedule, outpatient HD chair placement if needed #Severe Hyperkalemia- resolved -Initial potassium was 7.1, managed appropriately Currently hemodialysis per schedule #Hypertension; moderate control Continue current antihypertensives As needed hydralazine Closely monitor #Big Toe Ulcer, Left/wound dressing. Elevate the limb Supportive care - Left big toe ulcer noted - Per patient's daughter, patient is following with Vascular Surgery outpatient, revascularization was performed in the [facility] in the past and they were talking of possibly amputating that left toe. - No evidence of any infectious process at this time and patient is currently hemodynamicaly stable - Will get wound care for wound management - Follow up with Vascular Surgery outpatient for further management. #Hypoglycemia-resolved - Received IV insulin for hyperkalemia - BG improved post IV D50w per hypoglycemic protocol - Continue BG check Q6hrs - Continue Hypoglycemic protocol - On pureed diet per Speech therapy - Avoid hypoglycemia #GI/DVT Prophylaxis - PPI- Pepcid - Heparin SubQ - SCDs to bilateral lower extremities while in bed #Advance Care Planning - Disease education data, care plan, diagnoses, and prognosis were discussed with patient's daughter. Patient is a FULL code. Patient's daughter acknowledged understanding and agreement with current care plan. Closely monitor the patient and adjust the management as needed Plan of care reviewed with the patient and his nurse Discharge planning; PT recommended subacute rehab versus [facility] Patient would return to [facility] facility when medically stable DC planning per case management when medically stable Plan of care reviewed with the patient. His nurse 10/11/2021; patient feels slightly better some constipation Stool softener, awaiting placement DC planning per case management Plan of care reviewed with the patient and his nurse History Interval history: I have seen and examined the patient at the bedside Patient's chart and medications Patient is agitated requiring restraints for safety No new events reported by the nursing Patient received dialysis yesterday Nephrology evaluating renal function Hospitalist Physical - Constitutional Vitals: Temp Pulse Resp BP Pulse Ox 97.4 F L 90 18 152/85 93 10/11/21 08:01 10/11/21 08:01 10/11/21 08:01 10/11/21 08:01 10/11/21 08:53 General appearance: Present: no acute distress, cachectic - EENT Eyes: Present: PERRL, EOM intact - Neck Neck: Present: supple, normal ROM - Respiratory Respiratory effort: normal Respiratory: bilateral: diminished, negative: rales, rhonchi, wheezing - Cardiovascular Rhythm: regular Heart Sounds: Present: S1 & S2 - Extremities Extremities: no ischemia, No edema - Abdominal General gastrointestinal: soft, non-tender, non-distended, normal bowel sounds - Integumentary Integumentary: Present: clear, warm - Psychiatric Psychiatric: cooperative, agitated, other (Confused at times) - Neurologic Neurologic: moves all extremities Results - Labs CBC & Chem 7: 10/08/21 04:56 10/11/21 05:13 Labs: Laboratory Last Values WBC 6.6 K/mm3 (4.5-11.0) 10/08/21 04:56 RBC 3.59 M/mm3 (3.65-5.03) L 10/08/21 04:56 Hgb 10.4 gm/dl (11.8-15.2) L 10/08/21 04:56 Hct 32.2 % (35.5-45.6) L 10/08/21 04:56 MCV 90 fl (84-94) 10/08/21 04:56 MCH 29 pg (28-32) 10/08/21 04:56 MCHC 32 % (32-34) 10/08/21 04:56 RDW 15.1 % (13.2-15.2) 10/08/21 04:56 Plt Count 116 K/mm3 (140-440) L 10/08/21 04:56 Lymph % (Auto) 10.4 % (13.4-35.0) L 10/07/21 05:14 Fisher % (Auto) 7.9 % (0.0-7.3) H 10/07/21 05:14 Eos % (Auto) 0.4 % (0.0-4.3) 10/07/21 05:14 Baso % (Auto) 1.1 % (0.0-1.8) 10/07/21 05:14 Lymph # (Auto) 0.7 K/mm3 (1.2-5.4) L 10/07/21 05:14 Fisher # (Auto) 0.5 K/mm3 (0.0-0.8) 10/07/21 05:14 Eos # (Auto) 0.0 K/mm3 (0.0-0.4) 10/07/21 05:14 Baso # (Auto) 0.1 K/mm3 (0.0-0.1) 10/07/21 05:14 Seg Neutrophils % 80.2 % (40.0-70.0) H 10/07/21 05:14 Seg Neutrophils # 5.4 K/mm3 (1.8-7.7) 10/07/21 05:14 PT 16.6 Sec. (12.2-14.9) H 10/05/21 21:39 INR 1.20 (0.87-1.13) H 10/05/21 21:39 ABG pH 7.425 pH Units (7.350-7.450) 10/09/21 13:45 ABG pCO2 35.1 mm Hg 10/09/21 13:45 ABG pO2 75.9 mm Hg (80.0-90.0) L 10/09/21 13:45 ABG HCO3 22.5 mmol/L (20.0-26.0) 10/09/21 13:45 ABG O2 Saturation 96.4 % (95.0-99.0) 10/09/21 13:45 ABG O2 Content 14.5 (0.0-44) 10/09/21 13:45 ABG Base Excess -1.5 mmol/L (-2.0-3.0) 10/09/21 13:45 ABG Hemoglobin 10.8 gm/dl (14.0-18.0) L 10/09/21 13:45 ABG Carboxyhemoglobin 1.2 % (0.0-5.0) 10/09/21 13:45 ABG Methemoglobin 0.5 % (0.0-1.5) 10/09/21 13:45 Oxyhemoglobin 94.8 % (95.0-99.0) L 10/09/21 13:45 FiO2 21 % 10/09/21 13:45 Sodium 143 mmol/L (137-145) 10/11/21 05:13 Potassium 3.9 mmol/L (3.6-5.0) 10/11/21 05:13 Chloride 105.2 mmol/L (98-107) 10/11/21 05:13 Carbon Dioxide 25 mmol/L (22-30) 10/11/21 05:13 Anion Gap 17 mmol/L 10/11/21 05:13 BUN 45 mg/dL (9-20) H 10/11/21 05:13 Creatinine 4.6 mg/dL (0.8-1.3) H 10/11/21 05:13 Estimated GFR 15 ml/min 10/11/21 05:13 BUN/Creatinine Ratio 10 % 10/11/21 05:13 Glucose 100 mg/dL (75-100) 10/11/21 05:13 POC Glucose 81 mg/dL (70-105) 10/11/21 08:00 Calcium 9.1 mg/dL (8.4-10.2) 10/11/21 05:13 Total Bilirubin 0.50 mg/dL (0.1-1.2) 10/05/21 22:41 AST 11 units/L (5-40) 10/05/21 22:41 ALT < 5 units/L (7-56) L 10/05/21 22:41 Alkaline Phosphatase 64 units/L (35-129) 10/05/21 22:41 Ammonia 14.0 umol/L (25-60) L 10/05/21 22:41 Total Protein 8.3 g/dL (6.3-8.2) H 10/05/21 22:41 Albumin 4.9 g/dL (3.9-5) 10/05/21 22:41 Albumin/Globulin Ratio 1.4 % 10/05/21 22:41 Triglycerides 382 mg/dL (2-149) H 10/06/21 04:21 Cholesterol 273 mg/dL (50-199) H 10/06/21 04:21 LDL Cholesterol Direct 151 mg/dL (50-130) H 10/06/21 04:21 HDL Cholesterol 27 mg/dL (40-59) L 10/06/21 04:21 Cholesterol/HDL Ratio 10.11 % 10/06/21 04:21 PTH Intact 333.5 pg/mL (15-65) H 10/07/21 05:14 Urine Color Yellow (Yellow) 10/06/21 Unknown Urine Turbidity Clear (Clear) 10/06/21 Unknown Urine pH 5.0 (5.0-7.0) 10/06/21 Unknown Ur Specific [place] 1.015 (1.003-1.030) 10/06/21 Unknown Urine Protein <15 mg/dl mg/dL (Negative) 10/06/21 Unknown Urine Glucose (UA) Neg mg/dL (Negative) 10/06/21 Unknown Urine Ketones Neg mg/dL (Negative) 10/06/21 Unknown Urine Blood Sm (Negative) 10/06/21 Unknown Urine Nitrite Neg (Negative) 10/06/21 Unknown Urine Bilirubin Neg (Negative) 10/06/21 Unknown Urine Urobilinogen < 2.0 mg/dL (<2.0) 10/06/21 Unknown Ur Leukocyte Esterase Neg (Negative) 10/06/21 Unknown Urine WBC (Auto) 2.0 /HPF (0.0-6.0) 10/06/21 Unknown Urine RBC (Auto) 4.0 /HPF (0.0-6.0) 10/06/21 Unknown U Epithel Cells (Auto) 3.0 /HPF (0-13.0) 10/06/21 Unknown Urine Bacteria (Auto) 1+ /HPF (Negative) 10/06/21 Unknown Hyaline Casts 14 /LPF 10/06/21 Unknown Urine Mucus Few /HPF 10/06/21 Unknown Urine Yeast (Budding) 2+ /HPF 10/06/21 Unknown Urine Creatinine 234.3 mg/dL (0.1-20.0) H 10/06/21 14:04 Protein/Creatinin Ratio 0.12 10/06/21 14:04 Urine Total Protein 28 mg/dL (5-11.8) H 10/06/21 14:04 Salicylates < 0.3 mg/dL (2.8-20.0) L 10/05/21 22:41 Urine Opiates Screen Presumptive negative 10/06/21 Unknown Urine Methadone Screen Presumptive negative 10/06/21 Unknown Ur Barbiturates Screen Presumptive negative 10/06/21 Unknown Ur Phencyclidine Scrn Presumptive negative 10/06/21 Unknown Ur Amphetamines Screen Presumptive negative 10/06/21 Unknown U Benzodiazepines Scrn Presumptive negative 10/06/21 Unknown Urine Cocaine Screen Presumptive negative 10/06/21 Unknown U Marijuana (THC) Screen Presumptive negative 10/06/21 Unknown Drugs of Abuse Note Disclamer 10/06/21 Unknown Plasma/Serum Alcohol < 0.01 % (0-0.07) 10/05/21 21:39 Complement C3 117 mg/dL (82-185) 10/07/21 05:14 Complement C4 40 mg/dL (15-53) 10/07/21 05:14 Hepatitis A IgM Ab Non-reactive (NonReactive) 10/06/21 09:12 Hep Bs Antigen Non-reactive (Negative) 10/06/21 09:12 Hep B Core IgM Ab Non-reactive (NonReactive) 10/06/21 09:12 Hepatitis C Antibody Non-reactive (NonReactive) 10/06/21 09:12 Paez/IV: Voiding Method Condom Catheter Active Medications - Current Medications Current Medications: Generic Name Dose Route Start Last Admin Trade Name Freq PRN Reason Stop Dose Admin Acetaminophen 650 mg 10/06/21 01:42 Acetaminophen 325 Mg Tab PO Q4H PRN Pain MILD(1-3)/Fever >100.5/MARROQUIN Aspirin 81 mg 10/08/21 10:00 10/11/21 09:34 Aspirin 81 Mg Tab Chew PO 81 mg QDAY FREDI Administration Atorvastatin Calcium 40 mg 10/06/21 22:00 10/10/21 23:10 Atorvastatin 40 Mg Tab PO 40 mg QHS FREDI Administration Bisacodyl 10 mg 10/06/21 01:42 Bisacodyl [address] QDAY PRN Constipation Carvedilol 6.25 mg 10/07/21 10:00 10/11/21 09:34 Carvedilol 6.25 Mg Tab PO 6.25 mg BID FREDI Administration Dextrose 50 ml 10/06/21 01:42 Dextrose 50% In Water (25gm) 50 Ml Syringe IV Q30MIN PRN Hypoglycemia Protocol Famotidine 20 mg 10/07/21 10:00 10/11/21 09:34 Famotidine 20 Mg Tab PO 20 mg DAILY FREDI Administration Heparin Sodium (Porcine) 5,000 unit 10/06/21 14:00 10/11/21 06:17 Heparin 5,000 Unit/1 Ml Vial SUB-Q 5,000 unit Q8HR FREDI Administration Hydralazine HCl 10 mg 10/06/21 18:38 10/08/21 00:41 Hydralazine 20 Mg/1 Ml Inj IV 10 mg Q4HR PRN Administration Hypertension Sodium Chloride 1,000 mls @ 100 mls/hr 10/06/21 15:00 10/07/21 02:37 Nacl 0.9% 1000 Ml IV 100 mls/hr DIRECT FREDI Administration Magnesium Hydroxide 30 ml 10/06/21 01:42 Magnesium Hydroxide (Mom) Oral Liqd Udc PO Q4H PRN Constipation Metoclopramide HCl 2.5 mg 10/06/21 01:59 Metoclopramide 10 Mg/10 Ml Oral Liqd PO Q6H PRN Nausea And Vomiting Nifedipine 90 mg 10/09/21 10:00 10/11/21 09:34 Nifedipine Xl 90 Mg Tab PO 90 mg QDAY FREDI Administration Ondansetron HCl 4 mg 10/06/21 01:42 Ondansetron 4 Mg/2 Ml Inj IV Q8H PRN Nausea And Vomiting Promethazine HCl 25 mg 10/06/21 01:42 [address]ethazine [address] Q6H PRN Nausea And Vomiting Sodium Chloride 10 ml 10/06/21 10:00 10/11/21 09:34 Sodium Chloride 0.9% 10 Ml Flush Syringe IV 10 ml BID FREDI Administration Sodium Chloride 10 ml 10/06/21 01:42 Sodium Chloride 0.9% 10 Ml Flush Syringe IV PRN PRN LINE FLUSH Nutrition/Malnutrition Assess - Dietary Evaluation Nutrition/Malnutrition Findings: Nutrition Notes Start: 10/06/21 16:50 Freq: Status: Active Protocol: Document 10/06/21 16:50 NOEL (Rec: 10/06/21 17:01 NOEL [id number]) Nutrition Notes Need for Assessment generated from: MD Order,internal communications intern,MST, Education Initial or Follow up Assessment Current Diagnosis Acute Kidney Injury, Hypertension,Stroke Other Pertinent Diagnosis AMS, HARDIK+HD, Hyperkalemia. Current Diet Pureed Diet (since D 10/06). Labs/Tests 10/06: K 6.1, CO2 19, BUN 224, Crea 19.7, Glu 64, Ca 11.0. Pertinent Medications 10/06: Nutritionally unremarkable. Height 6 ft 2 in Weight 74.843 kg [place] Body Weight (kg) 86.36 BMI 21.2 Intake Prior to Admission Poor Weight change and time frame Pt states being unsure if loss body weight STRIPPER BLACK AND WHITE. Weight Status Appropriate Subjective/Other Information RD consult for nutrition education assessment. No reports available on Pt's PO intake of meals at the time , will assess at F/U. COLOR TECHNICIAN note on 10/06/21 14:53: Patient demonstrates a delayed oral transit time with a swallow reflex of 1 second. No evidence of aspiration was identified. However, per nurse , the patient's family reported that the patient's baseline intake is poor. Recommend a pureed diet with thins with an alternative method of nutrition. - END OF NOTE. Pt is on Nasal Cannula, O2 saturation @ 96%, according to Physical Assessment History notes. Pt shows no signs of concer for risk of malnutrition at the time, according to Physical Assessment History notes. Pt has missing teeth, according to Physical Assessment History notes. Pt is a SNF reesident, according to Progress notes. Pt still in critical condition , not a candidate for Nutrition Education at the time, will assess feasibility on F/U. Percent of energy/protein needs met: Prescribed Pureed Diet provides for energy/protein needs (1,804 Kcal/77 g) during LOS. Burn Absent Trauma Absent GI Symptoms None Food Allergy No Skin Integrity/Comment Unspecified dryness. 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 Is patient on ventilator? No Is Patient Ambulatory and/or Out of Bed No REE-([facility]-confined to bed) 1893.732 Kcal/Kg value to use for calculation 31 Approximate Energy Requirements Using 2320 kcal/Kg Calculation Used for Recommendations Kcal/kg Additional Notes Protein: >1.2 g/Kg IBW; >103 g /day. Fluids: 1 ml/Kcal, or as per MD. Nutrition Intervention Change Diet Order: Continue Pureed Diet. Follow-Up By: 10/13/21 Additional Comments Nutrition education will be provided at F/U, if feasible. Continue monitoring food tolerance, %PO intake of meals , and BM.
--- NOTE | 2021-10-11 11:28 | Progress Note ---
Subjective Date of service: 10/11/21 Principal diagnosis: AMS; HARDIK; Severe hyperkalemia; Hypertension; CMOP; Mild leukocytosis Interval history: # Acute Kidney Injury/Kidney Failure: creatinine 18, BUN>200 with hyperkalemia, acidosis, likely uremic effects. Noted to have creatinine 1.2 earlier this year so suspect acute kidney injury - STAT HD started 10/06 for hyperkalemia, azotemia/uremia; s/p daily HD x3 days for now given uremia/azotemia and need to avoid disequilibrium - plan for MWF HD for ongoing solute/toxin management - renal ultrasound acutely WNL, no obstruction - urinalysis reviewed, check serologies to rule out GN injury, still pending - note PTH high, may have secondary to underlying CKD - strict Is/Os- not much urine output noted - assess for renal recovery as able - avoid nephrotoxins - hold diuretics, EMILIANO/ARB for now # HTN: BP stable currently, per primary team due to HTN, Avoid ARB for now given hyperkalemia, HARDIK. Can restart once HARDIK improves or clearly CKD progression # Altered Mentation: unknown baseline, may have uremic effects # CVA: care per primary, neurology Subjective Interval history: No acute events noted, remains drowsy in bed Objective - Exam Narrative Exam: General appearance: no distress, frail EENT: ATNC Neck: Present: neck supple Respiratory: Clear to Ascultation, Normal Exam Heart: regular Gastrointestinal: Present: normoactive bowel sounds Integumentary: no rash, cool/clammy Neurologic: asterixis/tremulous, confused Objective - Vital Signs Vital signs: Vital Signs - 12hr 10/11/21 10/11/21 10/11/21 03:34 08:01 08:53 Temperature 97.9 F 97.4 F L Pulse Rate 65 90 Respiratory 18 18 Rate Blood Pressure 133/72 152/85 O2 Sat by Pulse 96 96 93 Oximetry - Lab 10/08/21 04:56 10/11/21 05:13 Most recent lab results ABG pH 7.425 pH Units (7.350-7.450) 10/09/21 13:45 ABG pCO2 35.1 mm Hg 10/09/21 13:45 ABG pO2 75.9 mm Hg (80.0-90.0) L 10/09/21 13:45 ABG HCO3 22.5 mmol/L (20.0-26.0) 10/09/21 13:45 ABG O2 Saturation 96.4 % (95.0-99.0) 10/09/21 13:45 Calcium 9.1 mg/dL (8.4-10.2) 10/11/21 05:13 Urine Creatinine 234.3 mg/dL (0.1-20.0) H 10/06/21 14:04 Urine Total Protein 28 mg/dL (5-11.8) H 10/06/21 14:04 Medications & Allergies - Medications Allergies/Adverse Reactions: Allergies No Known Allergies Allergy (Verified 05/09/21 13:32) Home Medications: Home Medications Medication Instructions Recorded Confirmed Last Taken Type Furosemide [Lasix TAB] 40 mg PO QDAY #30 tablet 05/10/21 10/08/21 Unknown Rx carvediloL [Coreg] 6.25 mg PO BID #60 tablet 05/11/21 10/08/21 Unknown Rx NIFEdipine [Nifedipine ER] 60 mg PO DAILY #30 tab 05/13/21 10/08/21 Unknown Rx Valsartan [Diovan] 160 mg PO QDAY #30 tablet 05/13/21 10/08/21 Unknown Rx Active Medications: Generic Name Dose Route Start Last Admin Trade Name Freq PRN Reason Stop Dose Admin Acetaminophen 650 mg 10/06/21 01:42 Acetaminophen 325 Mg Tab PO Q4H PRN Pain MILD(1-3)/Fever >100.5/MARROQUIN Aspirin 81 mg 10/08/21 10:00 10/11/21 09:34 Aspirin 81 Mg Tab Chew PO 81 mg QDAY FREDI Administration Atorvastatin Calcium 40 mg 10/06/21 22:00 10/10/21 23:10 Atorvastatin 40 Mg Tab PO 40 mg QHS FREDI Administration Bisacodyl 10 mg 10/06/21 01:42 Bisacodyl 10 Mg Rect Supp TN QDAY PRN Constipation Carvedilol 6.25 mg 10/07/21 10:00 10/11/21 09:34 Carvedilol 6.25 Mg Tab PO 6.25 mg BID FREDI Administration Dextrose 50 ml 10/06/21 01:42 Dextrose 50% In Water (25gm) 50 Ml Syringe IV Q30MIN PRN Hypoglycemia Protocol Famotidine 20 mg 10/07/21 10:00 10/11/21 09:34 Famotidine 20 Mg Tab PO 20 mg DAILY FREDI Administration Heparin Sodium (Porcine) 5,000 unit 10/06/21 14:00 10/11/21 06:17 Heparin 5,000 Unit/1 Ml Vial SUB-Q 5,000 unit Q8HR FREDI Administration Hydralazine HCl 10 mg 10/06/21 18:38 10/08/21 00:41 Hydralazine 20 Mg/1 Ml Inj IV 10 mg Q4HR PRN Administration Hypertension Sodium Chloride 1,000 mls @ 100 mls/hr 10/06/21 15:00 10/07/21 02:37 Nacl 0.9% 1000 Ml IV 100 mls/hr DIRECT FREDI Administration Magnesium Hydroxide 30 ml 10/06/21 01:42 Magnesium Hydroxide (Mom) Oral Liqd Udc PO Q4H PRN Constipation Metoclopramide HCl 2.5 mg 10/06/21 01:59 Metoclopramide 10 Mg/10 Ml Oral Liqd PO Q6H PRN Nausea And Vomiting Nifedipine 90 mg 10/09/21 10:00 10/11/21 09:34 Nifedipine Xl 90 Mg Tab PO 90 mg QDAY FREDI Administration Ondansetron HCl 4 mg 10/06/21 01:42 Ondansetron 4 Mg/2 Ml Inj IV Q8H PRN Nausea And Vomiting Promethazine HCl 25 mg 10/06/21 01:42 Promethazine 25 Mg Rect Supp [place] Q6H PRN Nausea And Vomiting Sodium Chloride 10 ml 10/06/21 10:00 10/11/21 09:34 Sodium Chloride 0.9% 10 Ml Flush Syringe IV 10 ml BID FREDI Administration Sodium Chloride 10 ml 10/06/21 01:42 Sodium Chloride 0.9% 10 Ml Flush Syringe IV PRN PRN LINE FLUSH
[2021-10-11 12:40] LABS: Albumin 3.7 g/dL (3.8-4.8); Gamma Globulin 1.1 g/dL (0.8-1.7)
--- NOTE | 2021-10-11 16:55 | Progress Note ---
Assessment and Plan Acute toxic metabolic encephalopathy Acute on chronic kidney injury Severe hyperkalemia Hypertension CMOP Thrombocytopenia Left big toe ulcer -Titrate supplemental oxygen to keep SpO2 89-92%. Currently on NC, FIO2 28% -Aspiration precautions - continue to avoid nephrotoxins, renally dose all medications -Supportive HD per renal service -continue mobility, off loading, frequent turning to prevent pressure ulcers - PT/OT, increase activity -Trend platelets, monitor for bleeding - continue accuchecks with glycemic control per SSI for target blood glucose < 180 mg/dL -Avoid hypoglycemia, patient had an episode of hypoglycemia that required D50 -Avoid delirium, maintain sleep-wake cycle -VTE prophylaxis- Heparin -Chronic home medications as clinically indicated - Flu & pneumovax per protocol -Follow up with Vascular Surgery outpatient for further management, of toe ulcer - continue other care per attending / other consultants Discharge planning per primary- may need rn long term care HD Subjective Date of service: 10/11/21 Principal diagnosis: AMS; HARDIK; Severe hyperkalemia; Hypertension; CMOP; Mild leukocytosis Interval history: Patient is seen today for: Acute toxic metabolic encephalopathy; Acute kidney injury; Severe hyperkalemia; Hypertension; CMOP; Mild leukocytosis Seen and examined at bedside; 24hour events reviewed; nursing and respiratory care staff consulted; no adverse overnight events reported to me; resting in bed; awake and alert, denies any chest pain, no shortness of breath, no fevers or chills. In restrains, agitation reported by RN Objective Vital Signs - 12hr 10/11/21 10/11/21 10/11/21 08:01 08:53 09:00 Temperature 97.4 F L Pulse Rate 90 54 L Respiratory 18 Rate Blood Pressure 152/85 O2 Sat by Pulse 96 93 Oximetry 10/11/21 10/11/21 12:24 16:00 Temperature 98.6 F 97.6 F Pulse Rate 60 63 Respiratory 18 18 Rate Blood Pressure 102/62 113/66 O2 Sat by Pulse 96 100 Oximetry Constitutional: no acute distress, alert, other (Confused. Not oriented.) Eyes: non-icteric ENT: oropharynx moist Neck: supple, no lymphadenopathy Effort: normal Ascultation: Bilateral: diminished breath sounds Cardiovascular: regular rate and rhythm Gastrointestinal: normoactive bowel sounds, soft, non-tender Integumentary: cellulitis Extremities: other (Stasis dermatitis.) Neurologic: non-focal exam (moves all extremities), pupils equal and round, motor strength normal and Psychiatric: mood appropriate, affect normal, other (Confused. Not oriented.) CBC and BMP: 10/08/21 04:56 10/12/21 04:50 ABG, PT/INR, D-dimer: ABG ABG pH 7.425 pH Units (7.350-7.450) 10/09/21 13:45 ABG pCO2 35.1 mm Hg 10/09/21 13:45 ABG pO2 75.9 mm Hg (80.0-90.0) L 10/09/21 13:45 ABG O2 Saturation 96.4 % (95.0-99.0) 10/09/21 13:45 PT/INR, D-dimer PT 16.6 Sec. (12.2-14.9) H 10/05/21 21:39 INR 1.20 (0.87-1.13) H 10/05/21 21:39 Abnormal lab findings: Abnormal Labs 10/05/21 10/05/21 10/05/21 21:39 21:39 22:41 WBC 11.3 H RBC Hgb Hct RDW 15.3 H Plt Count Lymph % (Auto) 7.6 L Josephine % (Auto) 7.7 H Lymph # (Auto) 0.9 L Josephine # (Auto) 0.9 H Seg Neutrophils % 83.7 H Seg Neutrophils # 9.5 H PT 16.6 H INR 1.20 H ABG pO2 ABG Hemoglobin Oxyhemoglobin Sodium Potassium Chloride Carbon Dioxide BUN Creatinine Glucose POC Glucose Calcium ALT Ammonia Total Protein Albumin Hxqts-8-Qikzyirjn Vdmni-1-Psipzvlvv PEP Interpretation Triglycerides Cholesterol LDL Cholesterol Direct HDL Cholesterol PTH Intact Urine Creatinine Urine Total Protein Salicylates < 0.3 L 10/05/21 10/05/21 10/06/21 22:41 22:41 04:21 WBC RBC Hgb Hct RDW Plt Count Lymph % (Auto) Josephine % (Auto) Lymph # (Auto) Josephine # (Auto) Seg Neutrophils % Seg Neutrophils # PT INR ABG pO2 ABG Hemoglobin Oxyhemoglobin Sodium Potassium 7.7 H* 6.1 H* D Chloride Carbon Dioxide 19 L BUN 216 H 224 H Creatinine 18.1 H 19.7 H Glucose 117 H 64 L POC Glucose Calcium 11.0 H ALT < 5 L Ammonia 14.0 L Total Protein 8.3 H Albumin Rcnzq-6-Fwxnfqzom Nstpr-9-Nuemelrsz PEP Interpretation Triglycerides Cholesterol LDL Cholesterol Direct HDL Cholesterol PTH Intact Urine Creatinine Urine Total Protein Salicylates 10/06/21 10/06/21 10/06/21 04:21 14:04 17:30 WBC RBC Hgb Hct RDW Plt Count Lymph % (Auto) Josephine % (Auto) Lymph # (Auto) Josephine # (Auto) Seg Neutrophils % Seg Neutrophils # PT INR ABG pO2 ABG Hemoglobin Oxyhemoglobin Sodium Potassium Chloride Carbon Dioxide BUN 131 H Creatinine 12.7 H Glucose 157 H POC Glucose Calcium ALT Ammonia Total Protein Albumin Qsshh-1-Vfubwihyq Qsaov-4-Bihhnodeg PEP Interpretation Triglycerides 382 H Cholesterol 273 H LDL Cholesterol Direct 151 H HDL Cholesterol 27 L PTH Intact Urine Creatinine 234.3 H Urine Total Protein 28 H Salicylates 10/07/21 10/07/21 10/07/21 05:14 05:14 05:14 WBC RBC 3.37 L Hgb 10.0 L Hct 30.1 L D RDW Plt Count 117 L Lymph % (Auto) 10.4 L Josephine % (Auto) 7.9 H Lymph # (Auto) 0.7 L Josephine # (Auto) Seg Neutrophils % 80.2 H Seg Neutrophils # PT INR ABG pO2 ABG Hemoglobin Oxyhemoglobin Sodium Potassium Chloride Carbon Dioxide BUN 123 H Creatinine 10.9 H Glucose 119 H POC Glucose Calcium ALT Ammonia Total Protein Albumin Pexme-2-Tsnquejsc Dbggh-7-Rjxdtznqb PEP Interpretation Triglycerides Cholesterol LDL Cholesterol Direct HDL Cholesterol PTH Intact 333.5 H Urine Creatinine Urine Total Protein Salicylates 10/07/21 10/07/21 10/08/21 05:14 21:43 04:56 WBC RBC 3.59 L Hgb 10.4 L Hct 32.2 L RDW Plt Count 116 L Lymph % (Auto) Josephine % (Auto) Lymph # (Auto) Josephine # (Auto) Seg Neutrophils % Seg Neutrophils # PT INR ABG pO2 ABG Hemoglobin Oxyhemoglobin Sodium Potassium Chloride Carbon Dioxide BUN Creatinine Glucose POC Glucose 144 H Calcium ALT Ammonia Total Protein Albumin 3.7 L Dnenw-6-Amfcymjho 0.4 H Clsve-8-Tcobviuir 1.0 H PEP Interpretation see below H Triglycerides Cholesterol LDL Cholesterol Direct HDL Cholesterol PTH Intact Urine Creatinine Urine Total Protein Salicylates 10/08/21 10/08/21 10/08/21 04:56 11:22 15:36 WBC RBC Hgb Hct RDW Plt Count Lymph % (Auto) Josephine % (Auto) Lymph # (Auto) Josephine # (Auto) Seg Neutrophils % Seg Neutrophils # PT INR ABG pO2 ABG Hemoglobin Oxyhemoglobin Sodium 147 H Potassium Chloride 109.8 H Carbon Dioxide 20 L BUN 123 H Creatinine 9.7 H Glucose 110 H POC Glucose 145 H 139 H Calcium ALT Ammonia Total Protein Albumin Lruwt-3-Ohthinksp Vxlrl-9-Ofgjpbrmf PEP Interpretation Triglycerides Cholesterol LDL Cholesterol Direct HDL Cholesterol PTH Intact Urine Creatinine Urine Total Protein Salicylates 10/09/21 10/09/21 10/09/21 12:36 13:45 18:01 WBC RBC Hgb Hct RDW Plt Count Lymph % (Auto) Josephine % (Auto) Lymph # (Auto) Josephine # (Auto) Seg Neutrophils % Seg Neutrophils # PT INR ABG pO2 75.9 L ABG Hemoglobin 10.8 L Oxyhemoglobin 94.8 L Sodium Potassium Chloride Carbon Dioxide BUN Creatinine Glucose POC Glucose 121 H 143 H Calcium ALT Ammonia Total Protein Albumin Luwrk-4-Znirrgiis Dezqr-7-Pdmeumwlz PEP Interpretation Triglycerides Cholesterol LDL Cholesterol Direct HDL Cholesterol PTH Intact Urine Creatinine Urine Total Protein Salicylates 10/10/21 10/10/21 10/11/21 00:16 05:09 05:13 WBC RBC Hgb Hct RDW Plt Count Lymph % (Auto) Josephine % (Auto) Lymph # (Auto) Josephine # (Auto) Seg Neutrophils % Seg Neutrophils # PT INR ABG pO2 ABG Hemoglobin Oxyhemoglobin Sodium 147 H Potassium Chloride 109.0 H Carbon Dioxide BUN 103 H 45 H Creatinine 6.8 H 4.6 H Glucose 108 H POC Glucose 108 H Calcium ALT Ammonia Total Protein Albumin Bzdfd-5-Puxevbijf Kwweg-3-Onvgpzjvl PEP Interpretation Triglycerides Cholesterol LDL Cholesterol Direct HDL Cholesterol PTH Intact Urine Creatinine Urine Total Protein Salicylates Allied health notes reviewed: nursing
--- NOTE | 2021-10-11 19:21 | Progress Note ---
Assessment and Plan Assessment and plan: 10/06: Remains altered but stable on 2L NC, VSS. Still hyperkalemic this am, HD in progress at the bedside. Repeat BMP a hour after HD. CT head/Brain noted. Continue CVA workup, MRI brain, US carotid, and 2D echo pending. Neurology consulted. Patient is hypoglycemic this am, s/p IV insulin for hyperkalemia, continue BG check and hypoglycemic protocol. Will order diet if patient pass bedside swallow. PT/OT/Speech consulted. Left big toe ulcer noted. Per patient's daughter, patient is following with Vascular Surgery outpatient, revascularization was performed in the [facility] in the past and they were talking of possibly amputating that left toe. No evidence of any infectious process at this time and patient is currently hemodynamicaly stable. Will get wound care for wound management. Follow up with Vascular surgery outpatient for further management. 10/07: Increased confusion and agitation required wrist restraints overnight for safety. Patient is still confused this am, but calm and cooperative. MRI brain pending. Patient tolerated HD yesterday. Hypertensive this am, resumed home meds and continue PRN antihypertensives. Continue HD per Nephro. Patient is stable for transfer to Telemetry. 10/09/2021; patient is slightly agitated requiring restraints Awaiting return to SNF when medically stable Nephrology initiated hemodialysis, HD as needed If renal decides that patient needs long-term hemodialysis Case management will assist with outpatient HD chair scheduling MRI brain show extensive chronic and age-related changes Punctate focus of increased diffusion-weighted signal in the left thalamic area This may be an evidence of recent or acute left thalamic infarction Continue current management PT evaluated the patient and recommended subacute rehab or [facility] for transition to LTAC DC planning per case management Assessment and Plan #Acute Metabolic Encephalopathy Multifactorial, treat the underlying cause Supportive care #R/O CVA/acute CVA - Presented with alerted mental status - Probably due to azotemia, but will also r/o acute cva - CT head/brain noted, please see report for full details - Patient is still pleasantly confused this am, still moving all extremities - No significant neuro deficits appreciated - MRI brain, Carotid US,2D Echo pending - ASA and Statin initiated - Continue Neuro check per protocol - PT/OT/Speech ordered - Neurology consulted, appreciated recommendations - VTE proph- Heparin SubQ Acute on Chronic Kidney Disease; Nephrology evaluated, initiated hemodialysis on 10/06/21 HD per schedule, outpatient HD chair placement if needed #Severe Hyperkalemia- resolved -Initial potassium was 7.1, managed appropriately Currently hemodialysis per schedule #Hypertension; moderate control Continue current antihypertensives As needed hydralazine Closely monitor #Big Toe Ulcer, Left/wound dressing. Elevate the limb Supportive care - Left big toe ulcer noted - Per patient's daughter, patient is following with Vascular Surgery outpatient, revascularization was performed in the [facility] in the past and they were talking of possibly amputating that left toe. - No evidence of any infectious process at this time and patient is currently hemodynamicaly stable - Will get wound care for wound management - Follow up with Vascular Surgery outpatient for further management. #Hypoglycemia-resolved - Received IV insulin for hyperkalemia - BG improved post IV D50w per hypoglycemic protocol - Continue BG check Q6hrs - Continue Hypoglycemic protocol - On pureed diet per Speech therapy - Avoid hypoglycemia #GI/DVT Prophylaxis - PPI- Pepcid - Heparin SubQ - SCDs to bilateral lower extremities while in bed #Advance Care Planning - Disease education data, care plan, diagnoses, and prognosis were discussed with patient's daughter. Patient is a FULL code. Patient's daughter acknowledged understanding and agreement with current care plan. Closely monitor the patient and adjust the management as needed Plan of care reviewed with the patient and his nurse Discharge planning; PT recommended subacute rehab versus [facility] facility Patient would return to [facility] facility when medically stable DC planning per case management when medically stable Plan of care reviewed with the patient. His nurse History Interval history: I have seen and examined the patient at the bedside Patient's chart and medications reviewed No new events reported by the nursing Vital signs noted Patient is confused and agitated Requiring restraints for safety Hospitalist Physical - Constitutional Vitals: Temp Pulse Resp BP Pulse Ox 97.6 F 63 18 113/66 100 10/11/21 16:00 10/11/21 16:00 10/11/21 16:00 10/11/21 16:00 10/11/21 16:00 General appearance: Present: no acute distress, cachectic - EENT Eyes: Present: PERRL, EOM intact - Neck Neck: Present: supple, normal ROM - Respiratory Respiratory effort: normal Respiratory: bilateral: diminished, negative: rales, rhonchi, wheezing - Cardiovascular Rhythm: regular Heart Sounds: Present: S1 & S2 - Extremities Extremities: no ischemia, No edema - Abdominal General gastrointestinal: soft, non-tender, non-distended, normal bowel sounds - Integumentary Integumentary: Present: clear, warm - Psychiatric Psychiatric: appropriate mood/affect, cooperative - Neurologic Neurologic: CNII-XII intact, moves all extremities Results - Labs CBC & Chem 7: 10/08/21 04:56 10/12/21 04:50 Labs: Laboratory Last Values WBC 6.6 K/mm3 (4.5-11.0) 10/08/21 04:56 RBC 3.59 M/mm3 (3.65-5.03) L 10/08/21 04:56 Hgb 10.4 gm/dl (11.8-15.2) L 10/08/21 04:56 Hct 32.2 % (35.5-45.6) L 10/08/21 04:56 MCV 90 fl (84-94) 10/08/21 04:56 MCH 29 pg (28-32) 10/08/21 04:56 MCHC 32 % (32-34) 10/08/21 04:56 RDW 15.1 % (13.2-15.2) 10/08/21 04:56 Plt Count 116 K/mm3 (140-440) L 10/08/21 04:56 Lymph % (Auto) 10.4 % (13.4-35.0) L 10/07/21 05:14 [place] % (Auto) 7.9 % (0.0-7.3) H 10/07/21 05:14 Eos % (Auto) 0.4 % (0.0-4.3) 10/07/21 05:14 Baso % (Auto) 1.1 % (0.0-1.8) 10/07/21 05:14 Lymph # (Auto) 0.7 K/mm3 (1.2-5.4) L 10/07/21 05:14 [place] # (Auto) 0.5 K/mm3 (0.0-0.8) 10/07/21 05:14 Eos # (Auto) 0.0 K/mm3 (0.0-0.4) 10/07/21 05:14 Baso # (Auto) 0.1 K/mm3 (0.0-0.1) 10/07/21 05:14 Seg Neutrophils % 80.2 % (40.0-70.0) H 10/07/21 05:14 Seg Neutrophils # 5.4 K/mm3 (1.8-7.7) 10/07/21 05:14 PT 16.6 Sec. (12.2-14.9) H 10/05/21 21:39 INR 1.20 (0.87-1.13) H 10/05/21 21:39 ABG pH 7.425 pH Units (7.350-7.450) 10/09/21 13:45 ABG pCO2 35.1 mm Hg 10/09/21 13:45 ABG pO2 75.9 mm Hg (80.0-90.0) L 10/09/21 13:45 ABG HCO3 22.5 mmol/L (20.0-26.0) 10/09/21 13:45 ABG O2 Saturation 96.4 % (95.0-99.0) 10/09/21 13:45 ABG O2 Content 14.5 (0.0-44) 10/09/21 13:45 ABG Base Excess -1.5 mmol/L (-2.0-3.0) 10/09/21 13:45 ABG Hemoglobin 10.8 gm/dl (14.0-18.0) L 10/09/21 13:45 ABG Carboxyhemoglobin 1.2 % (0.0-5.0) 10/09/21 13:45 ABG Methemoglobin 0.5 % (0.0-1.5) 10/09/21 13:45 Oxyhemoglobin 94.8 % (95.0-99.0) L 10/09/21 13:45 FiO2 21 % 10/09/21 13:45 Sodium 143 mmol/L (137-145) 10/11/21 05:13 Potassium 3.9 mmol/L (3.6-5.0) 10/11/21 05:13 Chloride 105.2 mmol/L (98-107) 10/11/21 05:13 Carbon Dioxide 25 mmol/L (22-30) 10/11/21 05:13 Anion Gap 17 mmol/L 10/11/21 05:13 BUN 45 mg/dL (9-20) H 10/11/21 05:13 Creatinine 4.6 mg/dL (0.8-1.3) H 10/11/21 05:13 Estimated GFR 15 ml/min 10/11/21 05:13 BUN/Creatinine Ratio 10 % 10/11/21 05:13 Glucose 100 mg/dL (75-100) 10/11/21 05:13 POC Glucose 102 mg/dL (70-105) 10/11/21 15:59 Calcium 9.1 mg/dL (8.4-10.2) 10/11/21 05:13 Total Bilirubin 0.50 mg/dL (0.1-1.2) 10/05/21 22:41 AST 11 units/L (5-40) 10/05/21 22:41 ALT < 5 units/L (7-56) L 10/05/21 22:41 Alkaline Phosphatase 64 units/L (35-129) 10/05/21 22:41 Ammonia 14.0 umol/L (25-60) L 10/05/21 22:41 Serum Total Protein 6.9 g/dL (6.1-8.1) 10/07/21 05:14 Total Protein 8.3 g/dL (6.3-8.2) H 10/05/21 22:41 Albumin 3.7 g/dL (3.8-4.8) L 10/07/21 05:14 Albumin/Globulin Ratio 1.4 % 10/05/21 22:41 Wrnfg-3-Uhmmzukou 0.4 g/dL (0.2-0.3) H 10/07/21 05:14 Sitgv-3-Iuauapcra 1.0 g/dL (0.5-0.9) H 10/07/21 05:14 Beta Globulins 0.4 g/dL (0.2-0.5) 10/07/21 05:14 Gamma Globulins 1.1 g/dL (0.8-1.7) 10/07/21 05:14 Abnorm Protein Band 1 see below 10/07/21 05:14 PEP Interpretation see below H 10/07/21 05:14 Triglycerides 382 mg/dL (2-149) H 10/06/21 04:21 Cholesterol 273 mg/dL (50-199) H 10/06/21 04:21 LDL Cholesterol Direct 151 mg/dL (50-130) H 10/06/21 04:21 HDL Cholesterol 27 mg/dL (40-59) L 10/06/21 04:21 Cholesterol/HDL Ratio 10.11 % 10/06/21 04:21 PTH Intact 333.5 pg/mL (15-65) H 10/07/21 05:14 Urine Color Yellow (Yellow) 10/06/21 Unknown Urine Turbidity Clear (Clear) 10/06/21 Unknown Urine pH 5.0 (5.0-7.0) 10/06/21 Unknown Ur Specific [place] 1.015 (1.003-1.030) 10/06/21 Unknown Urine Protein <15 mg/dl mg/dL (Negative) 10/06/21 Unknown Urine Glucose (UA) Neg mg/dL (Negative) 10/06/21 Unknown Urine Ketones Neg mg/dL (Negative) 10/06/21 Unknown Urine Blood Sm (Negative) 10/06/21 Unknown Urine Nitrite Neg (Negative) 10/06/21 Unknown Urine Bilirubin Neg (Negative) 10/06/21 Unknown Urine Urobilinogen < 2.0 mg/dL (<2.0) 10/06/21 Unknown Ur Leukocyte Esterase Neg (Negative) 10/06/21 Unknown Urine WBC (Auto) 2.0 /HPF (0.0-6.0) 10/06/21 Unknown Urine RBC (Auto) 4.0 /HPF (0.0-6.0) 10/06/21 Unknown U Epithel Cells (Auto) 3.0 /HPF (0-13.0) 10/06/21 Unknown Urine Bacteria (Auto) 1+ /HPF (Negative) 10/06/21 Unknown Hyaline Casts 14 /LPF 10/06/21 Unknown Urine Mucus Few /HPF 10/06/21 Unknown Urine Yeast (Budding) 2+ /HPF 10/06/21 Unknown Urine Creatinine 234.3 mg/dL (0.1-20.0) H 10/06/21 14:04 Protein/Creatinin Ratio 0.12 10/06/21 14:04 Urine Total Protein 28 mg/dL (5-11.8) H 10/06/21 14:04 Salicylates < 0.3 mg/dL (2.8-20.0) L 10/05/21 22:41 Urine Opiates Screen Presumptive negative 10/06/21 Unknown Urine Methadone Screen Presumptive negative 10/06/21 Unknown Ur Barbiturates Screen Presumptive negative 10/06/21 Unknown Ur Phencyclidine Scrn Presumptive negative 10/06/21 Unknown Ur Amphetamines Screen Presumptive negative 10/06/21 Unknown U Benzodiazepines Scrn Presumptive negative 10/06/21 Unknown Urine Cocaine Screen Presumptive negative 10/06/21 Unknown U Marijuana (THC) Screen Presumptive negative 10/06/21 Unknown Drugs of Abuse Note Disclamer 10/06/21 Unknown Plasma/Serum Alcohol < 0.01 % (0-0.07) 10/05/21 21:39 Complement C3 117 mg/dL (82-185) 10/07/21 05:14 Complement C4 40 mg/dL (15-53) 10/07/21 05:14 Hepatitis A IgM Ab Non-reactive (NonReactive) 10/06/21 09:12 Hep Bs Antigen Non-reactive (Negative) 10/06/21 09:12 Hep B Core IgM Ab Non-reactive (NonReactive) 10/06/21 09:12 Hepatitis C Antibody Non-reactive (NonReactive) 10/06/21 09:12 Paez/IV: Voiding Method Condom Catheter Active Medications - Current Medications Current Medications: Generic Name Dose Route Start Last Admin Trade Name Freq PRN Reason Stop Dose Admin Acetaminophen 650 mg 10/06/21 01:42 Acetaminophen 325 Mg Tab PO Q4H PRN Pain MILD(1-3)/Fever >100.5/MARROQUIN Aspirin 81 mg 10/08/21 10:00 10/11/21 09:34 Aspirin 81 Mg Tab Chew PO 81 mg QDAY FREDI Administration Atorvastatin Calcium 40 mg 10/06/21 22:00 10/10/21 23:10 Atorvastatin 40 Mg Tab PO 40 mg QHS FREDI Administration Bisacodyl 10 mg 10/06/21 01:42 Bisacodyl 10 Mg Rect Supp WI QDAY PRN Constipation Carvedilol 6.25 mg 10/07/21 10:00 10/11/21 09:34 Carvedilol 6.25 Mg Tab PO 6.25 mg BID FREDI Administration Dextrose 50 ml 10/06/21 01:42 Dextrose 50% In Water (25gm) 50 Ml Syringe IV Q30MIN PRN Hypoglycemia Protocol Famotidine 20 mg 10/07/21 10:00 10/11/21 09:34 Famotidine 20 Mg Tab PO 20 mg DAILY FREDI Administration Heparin Sodium (Porcine) 5,000 unit 10/06/21 14:00 10/11/21 15:37 Heparin 5,000 Unit/1 Ml Vial SUB-Q 5,000 unit Q8HR FREDI Administration Hydralazine HCl 10 mg 10/06/21 18:38 10/08/21 00:41 Hydralazine 20 Mg/1 Ml Inj IV 10 mg Q4HR PRN Administration Hypertension Sodium Chloride 1,000 mls @ 100 mls/hr 10/06/21 15:00 10/07/21 02:37 Nacl 0.9% 1000 Ml IV 100 mls/hr DIRECT FREDI Administration Magnesium Hydroxide 30 ml 10/06/21 01:42 Magnesium Hydroxide (Mom) Oral Liqd Udc PO Q4H PRN Constipation Metoclopramide HCl 2.5 mg 10/06/21 01:59 Metoclopramide 10 Mg/10 Ml Oral Liqd PO Q6H PRN Nausea And Vomiting Nifedipine 90 mg 10/09/21 10:00 10/11/21 09:34 Nifedipine Xl 90 Mg Tab PO 90 mg QDAY FREDI Administration Ondansetron HCl 4 mg 10/06/21 01:42 Ondansetron 4 Mg/2 Ml Inj IV Q8H PRN Nausea And Vomiting Promethazine HCl 25 mg 10/06/21 01:42 Promethazine 25 Mg Rect Supp WI Q6H PRN Nausea And Vomiting Sodium Chloride 10 ml 10/06/21 10:00 10/11/21 09:34 Sodium Chloride 0.9% 10 Ml Flush Syringe IV 10 ml BID FREDI Administration Sodium Chloride 10 ml 10/06/21 01:42 Sodium Chloride 0.9% 10 Ml Flush Syringe IV PRN PRN LINE FLUSH Nutrition/Malnutrition Assess - Dietary Evaluation Nutrition/Malnutrition Findings: Nutrition Notes Start: 10/06/21 16:50 Freq: Status: Active Protocol: Document 10/06/21 16:50 NOEL (Rec: 10/06/21 17:01 NOEL [id number]) Nutrition Notes Need for Assessment generated from: MD Order,business development assistant,MST, Education Initial or Follow up Assessment Current Diagnosis Acute Kidney Injury, Hypertension,Stroke Other Pertinent Diagnosis AMS, HARDIK+HD, Hyperkalemia. Current Diet Pureed Diet (since D 10/06). Labs/Tests 10/06: K 6.1, CO2 19, BUN 224, Crea 19.7, Glu 64, Ca 11.0. Pertinent Medications 10/06: Nutritionally unremarkable. 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 Weight Status Appropriate Subjective/Other Information RD consult for nutrition education assessment. No reports available on Pt's PO intake of meals at the time , will assess at F/U. CINDER PIT CRANE OPERATOR note on 10/06/21 14:53: Patient demonstrates a delayed oral transit time with a swallow reflex of 1 second. No evidence of aspiration was identified. However, per nurse , the patient's family reported that the patient's baseline intake is poor. Recommend a pureed diet with thins with an alternative method of nutrition. - END OF NOTE. Pt is on Nasal Cannula, O2 saturation @ 96%, according to Physical Assessment History notes. Pt shows no signs of concer for risk of malnutrition at the time, according to Physical Assessment History notes. Pt has missing teeth, according to Physical Assessment History notes. Pt is a SNF reesident, according to Progress notes. Pt still in critical condition , not a candidate for Nutrition Education at the time, will assess feasibility on F/U. Percent of energy/protein needs met: Prescribed Pureed Diet provides for energy/protein needs (1,804 Kcal/77 g) during LOS. Burn Absent Trauma Absent GI Symptoms None Food Allergy No Skin Integrity/Comment Unspecified dryness. Minimum of two criteria No Fluid Accumulation N/A Reduced Student Services Advisor Strength N/A (non-severe) Protein-Calorie Malnutrition N\A #1 Nutrition Diagnosis No nutrition diagnosis at this time Comments: Will assess Pt's PO intake of meals at F/U. Is patient on ventilator? No Is Patient Ambulatory and/or Out of Bed No REE-([facility]-confined to bed) 1893.732 Kcal/Kg value to use for calculation 31 Approximate Energy Requirements Using 2320 kcal/Kg Calculation Used for Recommendations Kcal/kg Additional Notes Protein: >1.2 g/Kg IBW; >103 g /day. Fluids: 1 ml/Kcal, or as per MD. Nutrition Intervention Change Diet Order: Continue Pureed Diet. Follow-Up By: 10/13/21 Additional Comments Nutrition education will be provided at F/U, if feasible. Continue monitoring food tolerance, %PO intake of meals , and BM.
[2021-10-12 05:42] LABS: Calcium 8.9 mg/dL (8.4-10.2)
[2021-10-12] MEDS: HEPARIN 5,000 UNIT/1 ML VIAL SUB-Q SCH ×3 (06:15→21:49)
--- NOTE | 2021-10-12 08:02 | Progress Note ---
Assessment and Plan 71-year-old male resident of [facility] with known history of hypertension , CHF sent to the emergency room for evaluation of changes in mental status since yesterday. Patient was said not to be his normal self over the past 24 hours. Patient unable to give any good history at this time most of the information was obtained from the ER staff. Work-up in the emergency room , labs were significant for leukocytosis of 11.3, potassium of 7.7, BUN to 216 and creatinine of 18.1. EKG shows some peaked T waves. CT scan of the head consistent with features of microvascular ischemia bilateral lacunar infarcts within the basal ganglia and left central semiovale. Area of hypoattenuation involving the right temporal lobe. Subacute ischemia is not excluded. MRI recommended for further evaluation. Teleneurology consulted by the ER physician and recommendation was to have CVA work-up. Natural Science Manager was also consulted regarding lab findings and EKG findings and admitted dialysis was recommended. Patient sleeping. Patient is on room air. O2 saturation 100%. No acute respiratory distress. Patient afebrile. No leukocytosis. Blood pressure 140/73, Pulse 64, Respirations 16. Patient is on Nifedipine, Hydralogine, coreg.Blood pressure management as per primary care. Chest ray done 10/06/21 reported Mild bibasilar linear atelectatic change. Mild chronic changes. No definite pneumonic infiltrates or effusions. No pneumothorax. Patient is on S/C Heparin and famotidine. - Patient Problems (1) CVA (cerebral vascular accident) Current Visit: Yes Status: Acute Plan to address problem: Management as per primary care and neurology. (2) Altered mental status Current Visit: Yes Status: Acute Plan to address problem: Management as per primary care. (3) HARDIK (acute kidney injury) Current Visit: Yes Status: Acute Plan to address problem: Management as per nephrology. (4) Bilateral lower leg cellulitis Current Visit: No Status: Acute Plan to address problem: Recommend to consult infectious diseases. Subjective Date of service: 10/12/21 Principal diagnosis: AMS; HARDIK; Severe hyperkalemia; Hypertension; CMOP; Mild leukocytosis Interval history: 71-year-old male resident of [facility] with known history of hypertension , CHF sent to the emergency room for evaluation of changes in mental status since yesterday. Patient was said not to be his normal self over the past 24 hours. Patient unable to give any good history at this time most of the information was obtained from the ER staff. Work-up in the emergency room , labs were significant for leukocytosis of 11.3, potassium of 7.7, BUN to 216 and creatinine of 18.1. EKG shows some peaked T waves. CT scan of the head consistent with features of microvascular ischemia bilateral lacunar infarcts within the basal ganglia and left central semiovale. Area of hypoattenuation involving the right temporal lobe. Subacute ischemia is not excluded. MRI recommended for further evaluation. Teleneurology consulted by the ER physician and recommendation was to have CVA work-up. Natural Science Manager was also consulted regarding lab findings and EKG findings and admitted dialysis was recommended. Patient sleeping. Patient is on room air. O2 saturation 100%. No acute re spiratory distress. Patient afebrile. No leukocytosis. Blood pressure 140/73, Pulse 64, Respirations 16. Patient is on Nifedipine, Hydralogine, coreg.Blood pressure management as per primary care. Chest ray done 10/06/21 reported Mild bibasilar linear atelectatic change. Mild chronic changes. No definite pneumonic infiltrates or effusions. No pneumothorax. Patient is on S/C Heparin and famotidine. Objective Vital Signs - 12hr 10/11/21 10/11/21 10/11/21 22:08 22:30 22:51 Temperature 97.3 F L Pulse Rate 64 52 L Respiratory 16 16 Rate Blood Pressure 136/72 130/70 O2 Sat by Pulse 100 91 Oximetry 10/12/21 04:12 Temperature 98.5 F Pulse Rate 67 Respiratory 16 Rate Blood Pressure 144/82 O2 Sat by Pulse 98 Oximetry Constitutional: no acute distress, alert, other (Confused. Not oriented.) Eyes: non-icteric ENT: oropharynx moist Neck: supple, no lymphadenopathy Effort: normal Ascultation: Bilateral: diminished breath sounds Cardiovascular: regular rate and rhythm Gastrointestinal: normoactive bowel sounds, soft, non-tender Integumentary: cellulitis Extremities: other (Stasis dermatitis.) Neurologic: pupils equal and round, unable to assess Psychiatric: other (Confused. Not oriented.) CBC and BMP: 10/08/21 04:56 10/12/21 04:50 ABG, PT/INR, D-dimer: ABG ABG pH 7.425 pH Units (7.350-7.450) 10/09/21 13:45 ABG pCO2 35.1 mm Hg 10/09/21 13:45 ABG pO2 75.9 mm Hg (80.0-90.0) L 10/09/21 13:45 ABG O2 Saturation 96.4 % (95.0-99.0) 10/09/21 13:45 PT/INR, D-dimer PT 16.6 Sec. (12.2-14.9) H 10/05/21 21:39 INR 1.20 (0.87-1.13) H 10/05/21 21:39 Abnormal lab findings: Abnormal Labs 10/05/21 10/05/21 10/05/21 21:39 21:39 22:41 WBC 11.3 H RBC Hgb Hct RDW 15.3 H Plt Count Lymph % (Auto) 7.6 L Falls % (Auto) 7.7 H Lymph # (Auto) 0.9 L Falls # (Auto) 0.9 H Seg Neutrophils % 83.7 H Seg Neutrophils # 9.5 H PT 16.6 H INR 1.20 H ABG pO2 ABG Hemoglobin Oxyhemoglobin Sodium Potassium Chloride Carbon Dioxide BUN Creatinine Glucose POC Glucose Calcium ALT Ammonia Total Protein Albumin Rxzfy-6-Jkywwsjow Kdtqa-6-Pdegmvvew PEP Interpretation Triglycerides Cholesterol LDL Cholesterol Direct HDL Cholesterol PTH Intact Urine Creatinine Urine Total Protein Salicylates < 0.3 L 10/05/21 10/05/21 10/06/21 22:41 22:41 04:21 WBC RBC Hgb Hct RDW Plt Count Lymph % (Auto) Falls % (Auto) Lymph # (Auto) Falls # (Auto) Seg Neutrophils % Seg Neutrophils # PT INR ABG pO2 ABG Hemoglobin Oxyhemoglobin Sodium Potassium 7.7 H* 6.1 H* D Chloride Carbon Dioxide 19 L BUN 216 H 224 H Creatinine 18.1 H 19.7 H Glucose 117 H 64 L POC Glucose Calcium 11.0 H ALT < 5 L Ammonia 14.0 L Total Protein 8.3 H Albumin Turdu-1-Mcvpmzykm Jsviu-5-Rqxonvrra PEP Interpretation Triglycerides Cholesterol LDL Cholesterol Direct HDL Cholesterol PTH Intact Urine Creatinine Urine Total Protein Salicylates 10/06/21 10/06/21 10/06/21 04:21 14:04 17:30 WBC RBC Hgb Hct RDW Plt Count Lymph % (Auto) Falls % (Auto) Lymph # (Auto) Falls # (Auto) Seg Neutrophils % Seg Neutrophils # PT INR ABG pO2 ABG Hemoglobin Oxyhemoglobin Sodium Potassium Chloride Carbon Dioxide BUN 131 H Creatinine 12.7 H Glucose 157 H POC Glucose Calcium ALT Ammonia Total Protein Albumin Ngvzd-0-Wbhukvrik Krdnt-8-Mmldmqgvz PEP Interpretation Triglycerides 382 H Cholesterol 273 H LDL Cholesterol Direct 151 H HDL Cholesterol 27 L PTH Intact Urine Creatinine 234.3 H Urine Total Protein 28 H Salicylates 10/07/21 10/07/21 10/07/21 05:14 05:14 05:14 WBC RBC 3.37 L Hgb 10.0 L Hct 30.1 L D RDW Plt Count 117 L Lymph % (Auto) 10.4 L Falls % (Auto) 7.9 H Lymph # (Auto) 0.7 L Falls # (Auto) Seg Neutrophils % 80.2 H Seg Neutrophils # PT INR ABG pO2 ABG Hemoglobin Oxyhemoglobin Sodium Potassium Chloride Carbon Dioxide BUN 123 H Creatinine 10.9 H Glucose 119 H POC Glucose Calcium ALT Ammonia Total Protein Albumin Fhxrt-6-Abwpvfrtk Mppna-2-Hwucnnmjh PEP Interpretation Triglycerides Cholesterol LDL Cholesterol Direct HDL Cholesterol PTH Intact 333.5 H Urine Creatinine Urine Total Protein Salicylates 10/07/21 10/07/21 10/08/21 05:14 21:43 04:56 WBC RBC 3.59 L Hgb 10.4 L Hct 32.2 L RDW Plt Count 116 L Lymph % (Auto) Falls % (Auto) Lymph # (Auto) Falls # (Auto) Seg Neutrophils % Seg Neutrophils # PT INR ABG pO2 ABG Hemoglobin Oxyhemoglobin Sodium Potassium Chloride Carbon Dioxide BUN Creatinine Glucose POC Glucose 144 H Calcium ALT Ammonia Total Protein Albumin 3.7 L Zoujc-2-Gmzztwzyu 0.4 H Olldk-6-Xulmztjad 1.0 H PEP Interpretation see below H Triglycerides Cholesterol LDL Cholesterol Direct HDL Cholesterol PTH Intact Urine Creatinine Urine Total Protein Salicylates 10/08/21 10/08/21 10/08/21 04:56 11:22 15:36 WBC RBC Hgb Hct RDW Plt Count Lymph % (Auto) Falls % (Auto) Lymph # (Auto) Falls # (Auto) Seg Neutrophils % Seg Neutrophils # PT INR ABG pO2 ABG Hemoglobin Oxyhemoglobin Sodium 147 H Potassium Chloride 109.8 H Carbon Dioxide 20 L BUN 123 H Creatinine 9.7 H Glucose 110 H POC Glucose 145 H 139 H Calcium ALT Ammonia Total Protein Albumin Isqzn-0-Jaqwexkok Mbzzi-6-Oibkurofb PEP Interpretation Triglycerides Cholesterol LDL Cholesterol Direct HDL Cholesterol PTH Intact Urine Creatinine Urine Total Protein Salicylates 10/09/21 10/09/21 10/09/21 12:36 13:45 18:01 WBC RBC Hgb Hct RDW Plt Count Lymph % (Auto) Falls % (Auto) Lymph # (Auto) Falls # (Auto) Seg Neutrophils % Seg Neutrophils # PT INR ABG pO2 75.9 L ABG Hemoglobin 10.8 L Oxyhemoglobin 94.8 L Sodium Potassium Chloride Carbon Dioxide BUN Creatinine Glucose POC Glucose 121 H 143 H Calcium ALT Ammonia Total Protein Albumin Nkbbm-5-Yvflvgitn Dkbuc-1-Txsjjkoji PEP Interpretation Triglycerides Cholesterol LDL Cholesterol Direct HDL Cholesterol PTH Intact Urine Creatinine Urine Total Protein Salicylates 10/10/21 10/10/21 10/11/21 00:16 05:09 05:13 WBC RBC Hgb Hct RDW Plt Count Lymph % (Auto) Falls % (Auto) Lymph # (Auto) Falls # (Auto) Seg Neutrophils % Seg Neutrophils # PT INR ABG pO2 ABG Hemoglobin Oxyhemoglobin Sodium 147 H Potassium Chloride 109.0 H Carbon Dioxide BUN 103 H 45 H Creatinine 6.8 H 4.6 H Glucose 108 H POC Glucose 108 H Calcium ALT Ammonia Total Protein Albumin Qxlst-3-Dhzcjvbez Zbzba-3-Hdznajysn PEP Interpretation Triglycerides Cholesterol LDL Cholesterol Direct HDL Cholesterol PTH Intact Urine Creatinine Urine Total Protein Salicylates 10/12/21 04:50 WBC RBC Hgb Hct RDW Plt Count Lymph % (Auto) Falls % (Auto) Lymph # (Auto) Falls # (Auto) Seg Neutrophils % Seg Neutrophils # PT INR ABG pO2 ABG Hemoglobin Oxyhemoglobin Sodium Potassium Chloride Carbon Dioxide BUN 52 H Creatinine 4.9 H Glucose POC Glucose Calcium ALT Ammonia Total Protein Albumin Bwpyi-3-Wgbuwkwku Wqqev-4-Uzfekmvqp PEP Interpretation Triglycerides Cholesterol LDL Cholesterol Direct HDL Cholesterol PTH Intact Urine Creatinine Urine Total Protein Salicylates
--- NOTE | 2021-10-12 12:02 | Progress Note ---
Subjective Date of service: 10/12/21 Principal diagnosis: AMS; HARDIK; Severe hyperkalemia; Hypertension; CMOP; Mild leukocytosis Interval history: # Acute Kidney Injury/Kidney Failure: creatinine 18, BUN>200 with hyperkalemia, acidosis, likely uremic effects. Noted to have creatinine 1.2 earlier this year so suspect acute kidney injury - STAT HD started 10/06 for hyperkalemia, azotemia/uremia; s/p daily HD x3 days for now given uremia/azotemia and need to avoid disequilibrium - plan for MWF HD for ongoing solute/toxin management - renal ultrasound acutely WNL, no obstruction - urinalysis reviewed, check serologies to rule out GN injury, still pending - note PTH high, may have secondary to underlying CKD - strict Is/Os- not much urine output noted - assess for renal recovery as able - avoid nephrotoxins - hold diuretics, EMILIANO/ARB for now # HTN: BP stable currently, per primary team due to HTN, Avoid ARB for now given hyperkalemia, HARDIK. Can restart once HADRIK improves or clearly CKD progression # Altered Mentation: unknown baseline, may have uremic effects # CVA: care per primary, neurology Subjective Interval history: No acute events noted, remains drowsy in bed Objective - Exam Narrative Exam: General appearance: no distress, frail EENT: ATNC Neck: Present: neck supple Respiratory: Clear to Ascultation, Normal Exam Heart: regular Gastrointestinal: Present: normoactive bowel sounds Integumentary: no rash, cool/clammy Neurologic: asterixis/tremulous, confused Objective - Vital Signs Vital signs: Vital Signs - 12hr 10/12/21 10/12/21 10/12/21 04:12 09:55 09:56 Temperature 98.5 F 98.2 F Pulse Rate 67 64 66 Respiratory 16 17 Rate Blood Pressure 144/82 140/73 138/74 O2 Sat by Pulse 98 Oximetry O2 Sat by Pulse 100 Oximetry [ Anterior Bilateral] 10/12/21 10/12/21 10/12/21 10:00 10:15 10:30 Temperature Pulse Rate 61 65 68 Respiratory Rate Blood Pressure 132/76 130/75 109/67 O2 Sat by Pulse Oximetry O2 Sat by Pulse Oximetry [ Anterior Bilateral] 10/12/21 10/12/21 10/12/21 10:45 11:00 11:15 Temperature Pulse Rate 66 59 L 66 Respiratory Rate Blood Pressure 103/76 119/68 122/70 O2 Sat by Pulse Oximetry O2 Sat by Pulse Oximetry [ Anterior Bilateral] 10/12/21 11:30 Temperature Pulse Rate 68 Respiratory Rate Blood Pressure 115/74 O2 Sat by Pulse Oximetry O2 Sat by Pulse Oximetry [ Anterior Bilateral] - Lab 10/08/21 04:56 10/12/21 04:50 Most recent lab results ABG pH 7.425 pH Units (7.350-7.450) 10/09/21 13:45 ABG pCO2 35.1 mm Hg 10/09/21 13:45 ABG pO2 75.9 mm Hg (80.0-90.0) L 10/09/21 13:45 ABG HCO3 22.5 mmol/L (20.0-26.0) 10/09/21 13:45 ABG O2 Saturation 96.4 % (95.0-99.0) 10/09/21 13:45 Calcium 8.9 mg/dL (8.4-10.2) 10/12/21 04:50 Urine Creatinine 234.3 mg/dL (0.1-20.0) H 10/06/21 14:04 Urine Total Protein 28 mg/dL (5-11.8) H 10/06/21 14:04 Medications & Allergies - Medications Allergies/Adverse Reactions: Allergies No Known Allergies Allergy (Verified 05/09/21 13:32) Home Medications: Home Medications Medication Instructions Recorded Confirmed Last Taken Type Furosemide [Lasix TAB] 40 mg PO QDAY #30 tablet 05/10/21 10/08/21 Unknown Rx carvediloL [Coreg] 6.25 mg PO BID #60 tablet 05/11/21 10/08/21 Unknown Rx NIFEdipine [Nifedipine ER] 60 mg PO DAILY #30 tab 05/13/21 10/08/21 Unknown Rx Valsartan [Diovan] 160 mg PO QDAY #30 tablet 05/13/21 10/08/21 Unknown Rx Active Medications: Generic Name Dose Route Start Last Admin Trade Name Freq PRN Reason Stop Dose Admin Acetaminophen 650 mg 10/06/21 01:42 Acetaminophen 325 Mg Tab PO Q4H PRN Pain MILD(1-3)/Fever >100.5/MARROQUIN Aspirin 81 mg 10/08/21 10:00 10/11/21 09:34 Aspirin 81 Mg Tab Chew PO 81 mg QDAY FREDI Administration Atorvastatin Calcium 40 mg 10/06/21 22:00 10/11/21 22:08 Atorvastatin 40 Mg Tab PO 40 mg QHS FREDI Administration Bisacodyl 10 mg 10/06/21 01:42 Bisacodyl 10 Mg Rect Supp [place] QDAY PRN Constipation Carvedilol 6.25 mg 10/07/21 10:00 10/11/21 22:08 Carvedilol 6.25 Mg Tab PO 6.25 mg BID FREDI Administration Dextrose 50 ml 10/06/21 01:42 Dextrose 50% In Water (25gm) 50 Ml Syringe IV Q30MIN PRN Hypoglycemia Protocol Famotidine 20 mg 10/07/21 10:00 10/11/21 09:34 Famotidine 20 Mg Tab PO 20 mg DAILY FREDI Administration Heparin Sodium (Porcine) 5,000 unit 10/06/21 14:00 10/12/21 06:15 Heparin 5,000 Unit/1 Ml Vial SUB-Q 5,000 unit Q8HR FREDI Administration Hydralazine HCl 10 mg 10/06/21 18:38 10/08/21 00:41 Hydralazine 20 Mg/1 Ml Inj IV 10 mg Q4HR PRN Administration Hypertension Sodium Chloride 1,000 mls @ 100 mls/hr 10/06/21 15:00 10/07/21 02:37 Nacl 0.9% 1000 Ml IV 100 mls/hr DIRECT FREDI Administration Magnesium Hydroxide 30 ml 10/06/21 01:42 Magnesium Hydroxide (Mom) Oral Liqd Udc PO Q4H PRN Constipation Metoclopramide HCl 2.5 mg 10/06/21 01:59 Metoclopramide 10 Mg/10 Ml Oral Liqd PO Q6H PRN Nausea And Vomiting Nifedipine 90 mg 10/09/21 10:00 10/11/21 09:34 Nifedipine Xl 90 Mg Tab PO 90 mg QDAY FREDI Administration Ondansetron HCl 4 mg 10/06/21 01:42 Ondansetron 4 Mg/2 Ml Inj IV Q8H PRN Nausea And Vomiting Promethazine HCl 25 mg 10/06/21 01:42 Promethazine 25 Mg Rect Supp [place] Q6H PRN Nausea And Vomiting Sodium Chloride 10 ml 10/06/21 10:00 10/11/21 22:11 Sodium Chloride 0.9% 10 Ml Flush Syringe IV 10 ml BID FREDI Administration Sodium Chloride 10 ml 10/06/21 01:42 Sodium Chloride 0.9% 10 Ml Flush Syringe IV PRN PRN LINE FLUSH
[2021-10-12] MEDS: ASPIRIN 81 MG TAB CHEW PO SCH (13:43)
[2021-10-12] MEDS: NIFEdipine XL 90 MG TAB PO SCH (13:43)
[2021-10-12] MEDS: FAMOTIDINE 20 MG TAB PO SCH (13:43)
[2021-10-12] MEDS: carvediloL 6.25 MG TAB PO SCH ×2 (13:43→21:49)
[2021-10-12 18:19] LABS: ANA Screen, IFA Negative (Negative)
[2021-10-13] MEDS: HEPARIN 5,000 UNIT/1 ML VIAL SUB-Q SCH ×3 (05:47→22:34)
[2021-10-13] MEDS: FAMOTIDINE 20 MG TAB PO SCH (09:46)
[2021-10-13] MEDS: carvediloL 6.25 MG TAB PO SCH ×2 (09:46→22:35)
[2021-10-13] MEDS: ASPIRIN 81 MG TAB CHEW PO SCH (09:46)
[2021-10-13] MEDS: NIFEdipine XL 90 MG TAB PO SCH (09:46)
--- NOTE | 2021-10-13 12:38 | Progress Note ---
Subjective Date of service: 10/13/21 Principal diagnosis: AMS; HARDIK; Severe hyperkalemia; Hypertension; CMOP; Mild leukocytosis Interval history: # Acute Kidney Injury/Kidney Failure: creatinine 18, BUN>200 with hyperkalemia, acidosis, likely uremic effects. Noted to have creatinine 1.2 earlier this year so suspect acute kidney injury - STAT HD started 10/06 for hyperkalemia, azotemia/uremia; s/p daily HD x3 days for now given uremia/azotemia and need to avoid disequilibrium - plan for MWF HD for ongoing solute/toxin management - renal ultrasound acutely WNL, no obstruction - urinalysis reviewed, check serologies to rule out GN injury, still pending - note PTH high, may have secondary to underlying CKD - strict Is/Os- not much urine output noted - assess for renal recovery as able - avoid nephrotoxins - hold diuretics, EMILIANO/ARB for now # HTN: BP stable currently, per primary team due to HTN, Avoid ARB for now given hyperkalemia, HARDIK. Can restart once HARDIK improves or clearly CKD progression # Altered Mentation: unknown baseline, may have uremic effects # CVA: care per primary, neurology Subjective Interval history: No acute events noted, remains drowsy in bed Objective - Exam Narrative Exam: General appearance: no distress, frail EENT: ATNC Neck: Present: neck supple Respiratory: Clear to Ascultation, Normal Exam Heart: regular Gastrointestinal: Present: normoactive bowel sounds Integumentary: no rash, cool/clammy Neurologic: asterixis/tremulous, confused Objective - Vital Signs Vital signs: Vital Signs - 12hr 10/13/21 10/13/21 04:36 08:11 Temperature 98.4 F 98.5 F Pulse Rate 75 57 L Respiratory 16 Rate Blood Pressure 125/77 140/76 O2 Sat by Pulse 100 99 Oximetry - Lab 10/08/21 04:56 10/12/21 04:50 Most recent lab results ABG pH 7.425 pH Units (7.350-7.450) 10/09/21 13:45 ABG pCO2 35.1 mm Hg 10/09/21 13:45 ABG pO2 75.9 mm Hg (80.0-90.0) L 10/09/21 13:45 ABG HCO3 22.5 mmol/L (20.0-26.0) 10/09/21 13:45 ABG O2 Saturation 96.4 % (95.0-99.0) 10/09/21 13:45 Calcium 8.9 mg/dL (8.4-10.2) 10/12/21 04:50 Urine Creatinine 234.3 mg/dL (0.1-20.0) H 10/06/21 14:04 Urine Total Protein 28 mg/dL (5-11.8) H 10/06/21 14:04 Medications & Allergies - Medications Allergies/Adverse Reactions: Allergies No Known Allergies Allergy (Verified 05/09/21 13:32) Home Medications: Home Medications Medication Instructions Recorded Confirmed Last Taken Type Furosemide [Lasix TAB] 40 mg PO QDAY #30 tablet 05/10/21 10/08/21 Unknown Rx carvediloL [Coreg] 6.25 mg PO BID #60 tablet 05/11/21 10/08/21 Unknown Rx NIFEdipine [Nifedipine ER] 60 mg PO DAILY #30 tab 05/13/21 10/08/21 Unknown Rx Valsartan [Diovan] 160 mg PO QDAY #30 tablet 05/13/21 10/08/21 Unknown Rx Active Medications: Generic Name Dose Route Start Last Admin Trade Name Freq PRN Reason Stop Dose Admin Acetaminophen 650 mg 10/06/21 01:42 Acetaminophen 325 Mg Tab PO Q4H PRN Pain MILD(1-3)/Fever >100.5/MARROQUIN Aspirin 81 mg 10/08/21 10:00 10/13/21 09:46 Aspirin 81 Mg Tab Chew PO 81 mg QDAY FREDI Administration Atorvastatin Calcium 40 mg 10/06/21 22:00 10/12/21 21:49 Atorvastatin 40 Mg Tab PO 40 mg QHS FREDI Administration Bisacodyl 10 mg 10/06/21 01:42 Bisacodyl 10 Mg Rect Supp [place] QDAY PRN Constipation Carvedilol 6.25 mg 10/07/21 10:00 10/13/21 09:46 Carvedilol 6.25 Mg Tab PO 6.25 mg BID FREDI Administration Dextrose 50 ml 10/06/21 01:42 Dextrose 50% In Water (25gm) 50 Ml Syringe IV Q30MIN PRN Hypoglycemia Protocol Famotidine 20 mg 10/07/21 10:00 10/13/21 09:46 Famotidine 20 Mg Tab PO 20 mg DAILY FREDI Administration Heparin Sodium (Porcine) 5,000 unit 10/06/21 14:00 10/13/21 05:47 Heparin 5,000 Unit/1 Ml Vial SUB-Q 5,000 unit Q8HR FREDI Administration Hydralazine HCl 10 mg 10/06/21 18:38 10/08/21 00:41 Hydralazine 20 Mg/1 Ml Inj IV 10 mg Q4HR PRN Administration Hypertension Sodium Chloride 1,000 mls @ 100 mls/hr 10/06/21 15:00 10/07/21 02:37 Nacl 0.9% 1000 Ml IV 100 mls/hr DIRECT FREDI Administration Magnesium Hydroxide 30 ml 10/06/21 01:42 Magnesium Hydroxide (Mom) Oral Liqd Udc PO Q4H PRN Constipation Metoclopramide HCl 2.5 mg 10/06/21 01:59 Metoclopramide 10 Mg/10 Ml Oral Liqd PO Q6H PRN Nausea And Vomiting Nifedipine 90 mg 10/09/21 10:00 10/13/21 09:46 Nifedipine Xl 90 Mg Tab PO 90 mg QDAY FREDI Administration Ondansetron HCl 4 mg 10/06/21 01:42 Ondansetron 4 Mg/2 Ml Inj IV Q8H PRN Nausea And Vomiting Promethazine HCl 25 mg 10/06/21 01:42 Promethazine 25 Mg Rect Supp [place] Q6H PRN Nausea And Vomiting Sodium Chloride 10 ml 10/06/21 10:00 10/13/21 09:46 Sodium Chloride 0.9% 10 Ml Flush Syringe IV 10 ml BID FREDI Administration Sodium Chloride 10 ml 10/06/21 01:42 Sodium Chloride 0.9% 10 Ml Flush Syringe IV PRN PRN LINE FLUSH
--- NOTE | 2021-10-13 13:11 | Progress Note ---
Assessment and Plan 71-year-old male resident of [facility] with known history of hypertension , CHF sent to the emergency room for evaluation of changes in mental status since yesterday. Patient was said not to be his normal self over the past 24 hours. Patient unable to give any good history at this time most of the information was obtained from the ER staff. Work-up in the emergency room , labs were significant for leukocytosis of 11.3, potassium of 7.7, BUN to 216 and creatinine of 18.1. EKG shows some peaked T waves. CT scan of the head consistent with features of microvascular ischemia bilateral lacunar infarcts within the basal ganglia and left central semiovale. Area of hypoattenuation involving the right temporal lobe. Subacute ischemia is not excluded. MRI recommended for further evaluation. Teleneurology consulted by the ER physician and recommendation was to have CVA work-up. [employer]inder was also consulted regarding lab findings and EKG findings and admitted dialysis was recommended. Patient awake Patient is on room air. O2 saturation 100%. No acute respiratory distress. Patient afebrile. No leukocytosis. Blood pressure 118/63, Pulse 69, Respirations 18. Patient is on Nifedipine, Hydralogine, coreg.Blood pressure management as per primary care. Chest ray done 10/06/21 reported Mild bibasilar linear atelectatic change. Mild chronic changes. No definite pneumonic infiltrates or effusions. No pneumothorax. Patient is on S/C Heparin and famotidine. - Patient Problems (1) CVA (cerebral vascular accident) Current Visit: Yes Status: Acute Plan to address problem: Management as per primary care and neurology. (2) Altered mental status Current Visit: Yes Status: Acute Plan to address problem: Management as per primary care. (3) HARDIK (acute kidney injury) Current Visit: Yes Status: Acute Plan to address problem: Management as per nephrology. (4) Bilateral lower leg cellulitis Current Visit: No Status: Acute Plan to address problem: Recommend to consult infectious diseases. Subjective Date of service: 10/13/21 Principal diagnosis: AMS; HARDIK; Severe hyperkalemia; Hypertension; CMOP; Mild leukocytosis Interval history: 71-year-old male resident of [facility] with known history of hypertension , CHF sent to the emergency room for evaluation of changes in mental status since yesterday. Patient was said not to be his normal self over the past 24 hours. Patient unable to give any good history at this time most of the information was obtained from the ER staff. Work-up in the emergency room , labs were significant for leukocytosis of 11.3, potassium of 7.7, BUN to 216 and creatinine of 18.1. EKG shows some peaked T waves. CT scan of the head consistent with features of microvascular ischemia bilateral lacunar infarcts within the basal ganglia and left central semiovale. Area of hypoattenuation involving the right temporal lobe. Subacute ischemia is not excluded. MRI recommended for further evaluation. Teleneurology consulted by the ER physician and recommendation was to have CVA work-up. Plate Glass Grinder was also consulted regarding lab findings and EKG findings and admitted dialysis was recommended. Patient awake Patient is on room air. O2 saturation 100%. No acute respiratory distress. Patient afebrile. No leukocytosis. Blood pressure 118/63, Pulse 69, Respirations 18. Patient is on Nifedipine, Hydralogine, coreg.Blood pressure management as per primary care. Chest ray done 10/06/21 reported Mild bibasilar linear atelectatic change. Mild chronic changes. No definite pneumonic infiltrates or effusions. No pneumothorax. Patient is on S/C Heparin and famotidine. Objective - Exam Narrative Exam: Vitals reviewed General appearance: Present: no acute distress, cachectic - EENT Eyes: Present: PERRL ENT: hearing intact - Neck Neck: Present: normal ROM RIJ HD catheter - Respiratory Respiratory effort: normal Respiratory: bilateral: diminished - Cardiovascular Rhythm: regular Heart Sounds: Present: S1 & S2 - Extremities Extremities: no ischemia, pulses intact, pulses symmetrical, abnormal (Lt. big toe ulcer noted) Peripheral Pulses: within normal limits - Abdominal General gastrointestinal: soft, non-distended, normal bowel sounds - Integumentary Integumentary: Present: warm, dry - Psychiatric Psychiatric: appropriate mood/affect, cooperative, other (AAOx1, pleasantly confused) - Neurologic Neurologic: moves all extremities, other (AAOx1, pleasantly confused) Vital Signs - 12hr 10/13/21 10/13/21 10/13/21 04:36 08:11 12:17 Temperature 98.4 F 98.5 F 97.8 F Pulse Rate 75 57 L 69 Respiratory 16 Rate Blood Pressure 125/77 140/76 118/63 O2 Sat by Pulse 100 99 100 Oximetry Constitutional: no acute distress, alert, other (Confused. Not oriented.) Eyes: non-icteric ENT: oropharynx moist Neck: supple, no lymphadenopathy Effort: normal Ascultation: Bilateral: diminished breath sounds Cardiovascular: regular rate and rhythm Gastrointestinal: normoactive bowel sounds, soft, non-tender Integumentary: cellulitis Extremities: other (Stasis dermatitis.) Neurologic: pupils equal and round, unable to assess Psychiatric: other (Confused. Not oriented.) CBC and BMP: 10/14/21 04:40 10/14/21 04:40 ABG, PT/INR, D-dimer: ABG ABG pH 7.425 pH Units (7.350-7.450) 10/09/21 13:45 ABG pCO2 35.1 mm Hg 10/09/21 13:45 ABG pO2 75.9 mm Hg (80.0-90.0) L 10/09/21 13:45 ABG O2 Saturation 96.4 % (95.0-99.0) 10/09/21 13:45 PT/INR, D-dimer PT 16.6 Sec. (12.2-14.9) H 10/05/21 21:39 INR 1.20 (0.87-1.13) H 10/05/21 21:39 Abnormal lab findings: Abnormal Labs 10/05/21 10/05/21 10/05/21 21:39 21:39 22:41 WBC 11.3 H RBC Hgb Hct RDW 15.3 H Plt Count Lymph % (Auto) 7.6 L Grand % (Auto) 7.7 H Lymph # (Auto) 0.9 L Grand # (Auto) 0.9 H Seg Neutrophils % 83.7 H Seg Neutrophils # 9.5 H PT 16.6 H INR 1.20 H ABG pO2 ABG Hemoglobin Oxyhemoglobin Sodium Potassium Chloride Carbon Dioxide BUN Creatinine Glucose POC Glucose Calcium ALT Ammonia Total Protein Albumin Zyomf-9-Jfoepdgyg Gagva-0-Mibtobasv PEP Interpretation Triglycerides Cholesterol LDL Cholesterol Direct HDL Cholesterol PTH Intact Urine Creatinine Urine Total Protein Salicylates < 0.3 L 10/05/21 10/05/21 10/06/21 22:41 22:41 04:21 WBC RBC Hgb Hct RDW Plt Count Lymph % (Auto) Grand % (Auto) Lymph # (Auto) Grand # (Auto) Seg Neutrophils % Seg Neutrophils # PT INR ABG pO2 ABG Hemoglobin Oxyhemoglobin Sodium Potassium 7.7 H* 6.1 H* D Chloride Carbon Dioxide 19 L BUN 216 H 224 H Creatinine 18.1 H 19.7 H Glucose 117 H 64 L POC Glucose Calcium 11.0 H ALT < 5 L Ammonia 14.0 L Total Protein 8.3 H Albumin Kxdfy-2-Moxtyxiru Ksybo-4-Gactlkohx PEP Interpretation Triglycerides Cholesterol LDL Cholesterol Direct HDL Cholesterol PTH Intact Urine Creatinine Urine Total Protein Salicylates 10/06/21 10/06/21 10/06/21 04:21 14:04 17:30 WBC RBC Hgb Hct RDW Plt Count Lymph % (Auto) Grand % (Auto) Lymph # (Auto) Grand # (Auto) Seg Neutrophils % Seg Neutrophils # PT INR ABG pO2 ABG Hemoglobin Oxyhemoglobin Sodium Potassium Chloride Carbon Dioxide BUN 131 H Creatinine 12.7 H Glucose 157 H POC Glucose Calcium ALT Ammonia Total Protein Albumin Slbhi-9-Zjntsoskj Cmydx-6-Ykhtqxzzg PEP Interpretation Triglycerides 382 H Cholesterol 273 H LDL Cholesterol Direct 151 H HDL Cholesterol 27 L PTH Intact Urine Creatinine 234.3 H Urine Total Protein 28 H Salicylates 10/07/21 10/07/21 10/07/21 05:14 05:14 05:14 WBC RBC 3.37 L Hgb 10.0 L Hct 30.1 L D RDW Plt Count 117 L Lymph % (Auto) 10.4 L Grand % (Auto) 7.9 H Lymph # (Auto) 0.7 L Grand # (Auto) Seg Neutrophils % 80.2 H Seg Neutrophils # PT INR ABG pO2 ABG Hemoglobin Oxyhemoglobin Sodium Potassium Chloride Carbon Dioxide BUN 123 H Creatinine 10.9 H Glucose 119 H POC Glucose Calcium ALT Ammonia Total Protein Albumin Uxcrw-6-Besgeahlz Uxsku-9-Wcxqeblgi PEP Interpretation Triglycerides Cholesterol LDL Cholesterol Direct HDL Cholesterol PTH Intact 333.5 H Urine Creatinine Urine Total Protein Salicylates 10/07/21 10/07/21 10/08/21 05:14 21:43 04:56 WBC RBC 3.59 L Hgb 10.4 L Hct 32.2 L RDW Plt Count 116 L Lymph % (Auto) Grand % (Auto) Lymph # (Auto) Grand # (Auto) Seg Neutrophils % Seg Neutrophils # PT INR ABG pO2 ABG Hemoglobin Oxyhemoglobin Sodium Potassium Chloride Carbon Dioxide BUN Creatinine Glucose POC Glucose 144 H Calcium ALT Ammonia Total Protein Albumin 3.7 L Nakfb-7-Hedifxnjc 0.4 H Hkffn-2-Ygyjriqlv 1.0 H PEP Interpretation see below H Triglycerides Cholesterol LDL Cholesterol Direct HDL Cholesterol PTH Intact Urine Creatinine Urine Total Protein Salicylates 10/08/21 10/08/21 10/08/21 04:56 11:22 15:36 WBC RBC Hgb Hct RDW Plt Count Lymph % (Auto) Grand % (Auto) Lymph # (Auto) Grand # (Auto) Seg Neutrophils % Seg Neutrophils # PT INR ABG pO2 ABG Hemoglobin Oxyhemoglobin Sodium 147 H Potassium Chloride 109.8 H Carbon Dioxide 20 L BUN 123 H Creatinine 9.7 H Glucose 110 H POC Glucose 145 H 139 H Calcium ALT Ammonia Total Protein Albumin Ihgmr-9-Cyoqiwyfu Ihwlz-2-Uivimoqgd PEP Interpretation Triglycerides Cholesterol LDL Cholesterol Direct HDL Cholesterol PTH Intact Urine Creatinine Urine Total Protein Salicylates 10/09/21 10/09/21 10/09/21 12:36 13:45 18:01 WBC RBC Hgb Hct RDW Plt Count Lymph % (Auto) Grand % (Auto) Lymph # (Auto) Grand # (Auto) Seg Neutrophils % Seg Neutrophils # PT INR ABG pO2 75.9 L ABG Hemoglobin 10.8 L Oxyhemoglobin 94.8 L Sodium Potassium Chloride Carbon Dioxide BUN Creatinine Glucose POC Glucose 121 H 143 H Calcium ALT Ammonia Total Protein Albumin Nbjxj-5-Pfmqcegnv Qalag-9-Nsegapjgk PEP Interpretation Triglycerides Cholesterol LDL Cholesterol Direct HDL Cholesterol PTH Intact Urine Creatinine Urine Total Protein Salicylates 10/10/21 10/10/21 10/11/21 00:16 05:09 05:13 WBC RBC Hgb Hct RDW Plt Count Lymph % (Auto) Grand % (Auto) Lymph # (Auto) Grand # (Auto) Seg Neutrophils % Seg Neutrophils # PT INR ABG pO2 ABG Hemoglobin Oxyhemoglobin Sodium 147 H Potassium Chloride 109.0 H Carbon Dioxide BUN 103 H 45 H Creatinine 6.8 H 4.6 H Glucose 108 H POC Glucose 108 H Calcium ALT Ammonia Total Protein Albumin Vimwd-1-Uuwypcgea Hdlqb-2-Qdqqfuemo PEP Interpretation Triglycerides Cholesterol LDL Cholesterol Direct HDL Cholesterol PTH Intact Urine Creatinine Urine Total Protein Salicylates 10/12/21 10/12/21 10/13/21 04:50 16:31 00:01 WBC RBC Hgb Hct RDW Plt Count Lymph % (Auto) Grand % (Auto) Lymph # (Auto) Grand # (Auto) Seg Neutrophils % Seg Neutrophils # PT INR ABG pO2 ABG Hemoglobin Oxyhemoglobin Sodium Potassium Chloride Carbon Dioxide BUN 52 H Creatinine 4.9 H Glucose POC Glucose 117 H 111 H Calcium ALT Ammonia Total Protein Albumin Jrhcv-4-Jhojatfcc Gnfgk-8-Ctyyrmtpd PEP Interpretation Triglycerides Cholesterol LDL Cholesterol Direct HDL Cholesterol PTH Intact Urine Creatinine Urine Total Protein Salicylates 10/13/21 12:30 WBC RBC Hgb Hct RDW Plt Count Lymph % (Auto) Grand % (Auto) Lymph # (Auto) Grand # (Auto) Seg Neutrophils % Seg Neutrophils # PT INR ABG pO2 ABG Hemoglobin Oxyhemoglobin Sodium Potassium Chloride Carbon Dioxide BUN Creatinine Glucose POC Glucose 116 H Calcium ALT Ammonia Total Protein Albumin Gyzdf-5-Sspwsnlgk Fphxf-4-Rhqnhjsni PEP Interpretation Triglycerides Cholesterol LDL Cholesterol Direct HDL Cholesterol PTH Intact Urine Creatinine Urine Total Protein Salicylates Allied health notes reviewed: nursing
--- NOTE | 2021-10-13 14:15 | Consultation ---
History of Present Illness - Reason for Consult Consult date: 10/13/21 PermCath placement - History of Present Illness Patient with a history of altered mental status who presented in acute renal failure and underwent placement of a Vas-Cath. Patient's mental capacity is improved significantly Past History Past Medical History: heart failure, hypertension, other (Depression) Past Surgical History: No surgical history Social history: no significant social history Family history: no significant family history Medications and Allergies Allergies Allergy/AdvReac Type Severity Reaction Status Date / Time No Known Allergies Allergy Verified 05/09/21 13:32 Home Medications Medication Instructions Recorded Confirmed Last Taken Type Furosemide [Lasix TAB] 40 mg PO QDAY #30 tablet 05/10/21 10/08/21 Unknown Rx carvediloL [Coreg] 6.25 mg PO BID #60 tablet 05/11/21 10/08/21 Unknown Rx NIFEdipine [Nifedipine ER] 60 mg PO DAILY #30 tab 05/13/21 10/08/21 Unknown Rx Valsartan [Diovan] 160 mg PO QDAY #30 tablet 05/13/21 10/08/21 Unknown Rx Active Meds: Active Medications Acetaminophen (Acetaminophen 325 Mg Tab) 650 mg PO Q4H PRN PRN Reason: Pain MILD(1-3)/Fever >100.5/MARROQUIN Aspirin (Aspirin 81 Mg Tab Chew) 81 mg PO QDAY [facility] Last Admin: 10/13/21 09:46 Dose: 81 mg Atorvastatin Calcium (Atorvastatin 40 Mg Tab) 40 mg PO QHS [facility] Last Admin: 10/12/21 21:49 Dose: 40 mg Bisacodyl (Bisacodyl 10 Mg Rect Supp) 10 mg FL QDAY PRN PRN Reason: Constipation Carvedilol (Carvedilol 6.25 Mg Tab) 6.25 mg PO BID [facility] Last Admin: 10/13/21 09:46 Dose: 6.25 mg Dextrose (Dextrose 50% In Water (25gm) 50 Ml Syringe) 50 ml IV Q30MIN PRN; Protocol PRN Reason: Hypoglycemia Famotidine (Famotidine 20 Mg Tab) 20 mg PO DAILY [facility] Last Admin: 10/13/21 09:46 Dose: 20 mg Heparin Sodium (Porcine) (Heparin 5,000 Unit/1 Ml Vial) 5,000 unit SUB-Q Q8HR [facility] Last Admin: 10/13/21 13:25 Dose: 5,000 unit Hydralazine HCl (Hydralazine 20 Mg/1 Ml Inj) 10 mg IV Q4HR PRN PRN Reason: Hypertension Last Admin: 10/08/21 00:41 Dose: 10 mg Sodium Chloride (Nacl 0.9% 1000 Ml) 1,000 mls @ 100 mls/hr IV DIRECT [facility] Last Admin: 10/07/21 02:37 Dose: 100 mls/hr Magnesium Hydroxide (Magnesium Hydroxide (Mom) Oral Liqd Udc) 30 ml PO Q4H PRN PRN Reason: Constipation Metoclopramide HCl (Metoclopramide 10 Mg/10 Ml Oral Liqd) 2.5 mg PO Q6H PRN PRN Reason: Nausea And Vomiting Nifedipine (Nifedipine Xl 90 Mg Tab) 90 mg PO QDAY [facility] Last Admin: 10/13/21 09:46 Dose: 90 mg Ondansetron HCl (Ondansetron 4 Mg/2 Ml Inj) 4 mg IV Q8H PRN PRN Reason: Nausea And Vomiting Promethazine HCl (Promethazine 25 Mg Rect Supp) 25 mg FL Q6H PRN PRN Reason: Nausea And Vomiting Sodium Chloride (Sodium Chloride 0.9% 10 Ml Flush Syringe) 10 ml IV BID [facility] Last Admin: 10/13/21 09:46 Dose: 10 ml Sodium Chloride (Sodium Chloride 0.9% 10 Ml Flush Syringe) 10 ml IV PRN PRN PRN Reason: LINE FLUSH Review of Systems All systems: negative Exam - Constitutional Vitals: Temp Pulse Resp BP Pulse Ox 97.8 F 69 18 118/63 100 10/13/21 12:17 10/13/21 12:17 10/13/21 10:00 10/13/21 12:17 10/13/21 12:17 General appearance: Present: no acute distress - EENT Eyes: Present: EOM intact ENT: hearing intact - Neck Neck: Present: supple, normal ROM - Respiratory Respiratory effort: normal - Abdominal General gastrointestinal: Present: deferred Male genitourinary: Present: deferred - Rectal Rectal Exam: deferred - Psychiatric Psychiatric: cooperative Results - Labs CBC & Chem 7: 10/08/21 04:56 10/12/21 04:50 Labs: Abnormal lab results 10/12/21 10/13/21 10/13/21 Range/Units 16:31 00:01 12:30 POC Glucose 117 H 111 H 116 H (70-105) mg/dL Assessment and Plan . Patient with currently indwelling right IJ Vas-Cath. He will need placement of tunneled hemodialysis catheter. This will be scheduled for tomorrow.
--- NOTE | 2021-10-13 17:56 | Progress Note ---
Assessment and Plan Assessment and plan: 10/06: Remains altered but stable on 2L NC, VSS. Still hyperkalemic this am, HD in progress at the bedside. Repeat BMP a hour after HD. CT head/Brain noted. Continue CVA workup, MRI brain, US carotid, and 2D echo pending. Neurology consulted. Patient is hypoglycemic this am, s/p IV insulin for hyperkalemia, continue BG check and hypoglycemic protocol. Will order diet if patient pass bedside swallow. PT/OT/Speech consulted. Left big toe ulcer noted. Per patient's daughter, patient is following with Vascular Surgery outpatient, revascularization was performed in the [facility] in the past and they were talking of possibly amputating that left toe. No evidence of any infectious process at this time and patient is currently hemodynamicaly stable. Will get wound care for wound management. Follow up with Vascular surgery outpatient for further management. Daily hospital course: 10/07: Increased confusion and agitation required wrist restraints overnight for safety. Patient is still confused this am, but calm and cooperative. MRI brain pending. Patient tolerated HD yesterday. Hypertensive this am, resumed home meds and continue PRN antihypertensives. Continue HD per Nephro. Patient is stable for transfer to Telemetry. 10/09/2021; patient is slightly agitated requiring restraints Awaiting return to SNF when medically stable Nephrology initiated hemodialysis, HD as needed If renal decides that patient needs long-term hemodialysis Case management will assist with outpatient HD chair scheduling 10/11/2021; patient is receiving hemodialysis Once nephrology confirms long-term HD, check with case management for outpatient HD placement Patient continues to be confused requiring restraints 10/12/2021; patient is more alert and awake responding appropriately Continue current management, if he continues to be manageable, will try to DC restraints 10/13/2021; today patient is more alert and awake,, CM assisting with outpatient HD placement Hemodialysis per schedule MWF, possible discharge in 1 to 2 days if stable MRI brain show extensive chronic and age-related changes Punctate focus of increased diffusion-weighted signal in the left thalamic area This may be an evidence of recent or acute left thalamic infarction Continue current management PT evaluated the patient and recommended subacute rehab or [facility] for transition to LTAC DC planning per case management Assessment and Plan #Acute Metabolic Encephalopathy Multifactorial, treat the underlying cause Supportive care #Acute CVA: Left thalamic infarction MRI punctate focus of increased diffusion weighted signal in the left thalamic area Evidence of recent or acute left thalamic infarction - Presented with alerted mental status -Extensive neuro work-up reviewed - ASA and Statin initiated - Continue Neuro check per protocol -Continue PT/OT/Speech therapy - Neurology evaluated once on admission Awaiting placement/return to [facility]/awaiting authorization Acute on Chronic Kidney Disease; transition to end-stage renal disease Nephrology evaluated, initiated hemodialysis on 10/06/21 HD per schedule, MWF, outpatient HD placement in process per CM #Severe Hyperkalemia- resolved -Initial potassium was 7.1, managed appropriately Currently hemodialysis per schedule #Hypertension; moderate control Continue current antihypertensives As needed hydralazine #Big Toe Ulcer, Left/wound dressing. Elevate the limb Supportive care - Left big toe ulcer noted - Per patient's daughter, patient is following with Vascular Surgery outpatient, revascularization was performed in the [facility] in the past and they were talking of possibly amputating that left toe. - No evidence of any infectious process at this time and patient is currently hemodynamicaly stable - Will get wound care for wound management - Follow up with Vascular Surgery outpatient for further management. #Hypoglycemia-resolved Closely monitor blood sugars Adjust management as needed Closely monitor blood sugars Hypoglycemia resolved #GI/DVT Prophylaxis - PPI- Pepcid - Heparin SubQ - SCDs to bilateral lower extremities while in bed #Advance Care Planning - Disease education data, care plan, diagnoses, and prognosis were discussed with patient's daughter. Patient is a FULL code. Patient's daughter acknowledged understanding and agreement with current care plan. Closely monitor the patient and adjust the management as needed Plan of care reviewed with the patient and his nurse Discharge planning; PT recommended subacute rehab versus [facility] facility Patient would return to [facility] facility when medically stable Awaiting authorization Possible discharge in 1 to 2 days if stable Plan of care reviewed with the patient. His nurse History Interval history: I have seen and examined the patient at the bedside Patient's chart and medications reviewed Patient is more alert and awake Responding to simple questions appropriately Still restrained intermittently for agitation Vital signs noted Hospitalist Physical - Constitutional Vitals: Temp Pulse Resp BP Pulse Ox 97.8 F 69 18 118/63 100 10/13/21 12:17 10/13/21 12:17 10/13/21 10:00 10/13/21 12:17 10/13/21 12:17 General appearance: Present: no acute distress, well-nourished - EENT Eyes: Present: PERRL, EOM intact - Neck Neck: Present: supple, normal ROM - Respiratory Respiratory effort: normal Respiratory: bilateral: diminished, negative: rales, rhonchi, wheezing - Cardiovascular Rhythm: regular Heart Sounds: Present: S1 & S2 - Extremities Extremities: no ischemia, No edema - Abdominal General gastrointestinal: soft, non-tender, non-distended, normal bowel sounds - Integumentary Integumentary: Present: clear, warm - Psychiatric Psychiatric: appropriate mood/affect, cooperative - Neurologic Neurologic: CNII-XII intact, moves all extremities Results - Labs CBC & Chem 7: 10/08/21 04:56 10/12/21 04:50 Labs: Laboratory Last Values WBC 6.6 K/mm3 (4.5-11.0) 10/08/21 04:56 RBC 3.59 M/mm3 (3.65-5.03) L 10/08/21 04:56 Hgb 10.4 gm/dl (11.8-15.2) L 10/08/21 04:56 Hct 32.2 % (35.5-45.6) L 10/08/21 04:56 MCV 90 fl (84-94) 10/08/21 04:56 MCH 29 pg (28-32) 10/08/21 04:56 MCHC 32 % (32-34) 10/08/21 04:56 RDW 15.1 % (13.2-15.2) 10/08/21 04:56 Plt Count 116 K/mm3 (140-440) L 10/08/21 04:56 Lymph % (Auto) 10.4 % (13.4-35.0) L 10/07/21 05:14 [place] % (Auto) 7.9 % (0.0-7.3) H 10/07/21 05:14 Eos % (Auto) 0.4 % (0.0-4.3) 10/07/21 05:14 Baso % (Auto) 1.1 % (0.0-1.8) 10/07/21 05:14 Lymph # (Auto) 0.7 K/mm3 (1.2-5.4) L 10/07/21 05:14 [place] # (Auto) 0.5 K/mm3 (0.0-0.8) 10/07/21 05:14 Eos # (Auto) 0.0 K/mm3 (0.0-0.4) 10/07/21 05:14 Baso # (Auto) 0.1 K/mm3 (0.0-0.1) 10/07/21 05:14 Seg Neutrophils % 80.2 % (40.0-70.0) H 10/07/21 05:14 Seg Neutrophils # 5.4 K/mm3 (1.8-7.7) 10/07/21 05:14 PT 16.6 Sec. (12.2-14.9) H 10/05/21 21:39 INR 1.20 (0.87-1.13) H 10/05/21 21:39 ABG pH 7.425 pH Units (7.350-7.450) 10/09/21 13:45 ABG pCO2 35.1 mm Hg 10/09/21 13:45 ABG pO2 75.9 mm Hg (80.0-90.0) L 10/09/21 13:45 ABG HCO3 22.5 mmol/L (20.0-26.0) 10/09/21 13:45 ABG O2 Saturation 96.4 % (95.0-99.0) 10/09/21 13:45 ABG O2 Content 14.5 (0.0-44) 10/09/21 13:45 ABG Base Excess -1.5 mmol/L (-2.0-3.0) 10/09/21 13:45 ABG Hemoglobin 10.8 gm/dl (14.0-18.0) L 10/09/21 13:45 ABG Carboxyhemoglobin 1.2 % (0.0-5.0) 10/09/21 13:45 ABG Methemoglobin 0.5 % (0.0-1.5) 10/09/21 13:45 Oxyhemoglobin 94.8 % (95.0-99.0) L 10/09/21 13:45 FiO2 21 % 10/09/21 13:45 Sodium 143 mmol/L (137-145) 10/12/21 04:50 Potassium 3.8 mmol/L (3.6-5.0) 10/12/21 04:50 Chloride 104.2 mmol/L (98-107) 10/12/21 04:50 Carbon Dioxide 25 mmol/L (22-30) 10/12/21 04:50 Anion Gap 18 mmol/L 10/12/21 04:50 BUN 52 mg/dL (9-20) H 10/12/21 04:50 Creatinine 4.9 mg/dL (0.8-1.3) H 10/12/21 04:50 Estimated GFR 14 ml/min 10/12/21 04:50 BUN/Creatinine Ratio 11 % 10/12/21 04:50 Glucose 94 mg/dL (75-100) 10/12/21 04:50 POC Glucose 116 mg/dL (70-105) H 10/13/21 12:30 Calcium 8.9 mg/dL (8.4-10.2) 10/12/21 04:50 Total Bilirubin 0.50 mg/dL (0.1-1.2) 10/05/21 22:41 AST 11 units/L (5-40) 10/05/21 22:41 ALT < 5 units/L (7-56) L 10/05/21 22:41 Alkaline Phosphatase 64 units/L (35-129) 10/05/21 22:41 Ammonia 14.0 umol/L (25-60) L 10/05/21 22:41 Serum Total Protein 6.9 g/dL (6.1-8.1) 10/07/21 05:14 Total Protein 8.3 g/dL (6.3-8.2) H 10/05/21 22:41 Albumin 3.7 g/dL (3.8-4.8) L 10/07/21 05:14 Albumin/Globulin Ratio 1.4 % 10/05/21 22:41 Gixti-1-Xmarryucj 0.4 g/dL (0.2-0.3) H 10/07/21 05:14 Daoyn-2-Haeifjvrx 1.0 g/dL (0.5-0.9) H 10/07/21 05:14 Beta Globulins 0.4 g/dL (0.2-0.5) 10/07/21 05:14 Gamma Globulins 1.1 g/dL (0.8-1.7) 10/07/21 05:14 Abnorm Protein Band 1 see below 10/07/21 05:14 PEP Interpretation see below H 10/07/21 05:14 Triglycerides 382 mg/dL (2-149) H 10/06/21 04:21 Cholesterol 273 mg/dL (50-199) H 10/06/21 04:21 LDL Cholesterol Direct 151 mg/dL (50-130) H 10/06/21 04:21 HDL Cholesterol 27 mg/dL (40-59) L 10/06/21 04:21 Cholesterol/HDL Ratio 10.11 % 10/06/21 04:21 PTH Intact 333.5 pg/mL (15-65) H 10/07/21 05:14 Urine Color Yellow (Yellow) 10/06/21 Unknown Urine Turbidity Clear (Clear) 10/06/21 Unknown Urine pH 5.0 (5.0-7.0) 10/06/21 Unknown Ur Specific [place] 1.015 (1.003-1.030) 10/06/21 Unknown Urine Protein <15 mg/dl mg/dL (Negative) 10/06/21 Unknown Urine Glucose (UA) Neg mg/dL (Negative) 10/06/21 Unknown Urine Ketones Neg mg/dL (Negative) 10/06/21 Unknown Urine Blood Sm (Negative) 10/06/21 Unknown Urine Nitrite Neg (Negative) 10/06/21 Unknown Urine Bilirubin Neg (Negative) 10/06/21 Unknown Urine Urobilinogen < 2.0 mg/dL (<2.0) 10/06/21 Unknown Ur Leukocyte Esterase Neg (Negative) 10/06/21 Unknown Urine WBC (Auto) 2.0 /HPF (0.0-6.0) 10/06/21 Unknown Urine RBC (Auto) 4.0 /HPF (0.0-6.0) 10/06/21 Unknown U Epithel Cells (Auto) 3.0 /HPF (0-13.0) 10/06/21 Unknown Urine Bacteria (Auto) 1+ /HPF (Negative) 10/06/21 Unknown Hyaline Casts 14 /LPF 10/06/21 Unknown Urine Mucus Few /HPF 10/06/21 Unknown Urine Yeast (Budding) 2+ /HPF 10/06/21 Unknown Urine Creatinine 234.3 mg/dL (0.1-20.0) H 10/06/21 14:04 Protein/Creatinin Ratio 0.12 10/06/21 14:04 Urine Total Protein 28 mg/dL (5-11.8) H 10/06/21 14:04 Salicylates < 0.3 mg/dL (2.8-20.0) L 10/05/21 22:41 Urine Opiates Screen Presumptive negative 10/06/21 Unknown Urine Methadone Screen Presumptive negative 10/06/21 Unknown Ur Barbiturates Screen Presumptive negative 10/06/21 Unknown Ur Phencyclidine Scrn Presumptive negative 10/06/21 Unknown Ur Amphetamines Screen Presumptive negative 10/06/21 Unknown U Benzodiazepines Scrn Presumptive negative 10/06/21 Unknown Urine Cocaine Screen Presumptive negative 10/06/21 Unknown U Marijuana (THC) Screen Presumptive negative 10/06/21 Unknown Drugs of Abuse Note Disclamer 10/06/21 Unknown Plasma/Serum Alcohol < 0.01 % (0-0.07) 10/05/21 21:39 LILIYA Screen Negative (Negative) 10/07/21 05:14 Complement C3 117 mg/dL (82-185) 10/07/21 05:14 Complement C4 40 mg/dL (15-53) 10/07/21 05:14 Coronavirus (PCR) Negative (Negative) 10/12/21 14:10 Hepatitis A IgM Ab Non-reactive (NonReactive) 10/06/21 09:12 Hep Bs Antigen Non-reactive (Negative) 10/06/21 09:12 Hep B Core IgM Ab Non-reactive (NonReactive) 10/06/21 09:12 Hepatitis C Antibody Non-reactive (NonReactive) 10/06/21 09:12 Paez/IV: Voiding Method Condom Catheter Active Medications - Current Medications Current Medications: Generic Name Dose Route Start Last Admin Trade Name Freq PRN Reason Stop Dose Admin Acetaminophen 650 mg 10/06/21 01:42 Acetaminophen 325 Mg Tab PO Q4H PRN Pain MILD(1-3)/Fever >100.5/MARROQUIN Aspirin 81 mg 10/08/21 10:00 10/13/21 09:46 Aspirin 81 Mg Tab Chew PO 81 mg QDAY FREDI Administration Atorvastatin Calcium 40 mg 10/06/21 22:00 10/12/21 21:49 Atorvastatin 40 Mg Tab PO 40 mg QHS FREDI Administration Bisacodyl 10 mg 10/06/21 01:42 Bisacodyl 10 Mg Rect Supp RI QDAY PRN Constipation Carvedilol 6.25 mg 10/07/21 10:00 10/13/21 09:46 Carvedilol 6.25 Mg Tab PO 6.25 mg BID FREDI Administration Dextrose 50 ml 10/06/21 01:42 Dextrose 50% In Water (25gm) 50 Ml Syringe IV Q30MIN PRN Hypoglycemia Protocol Famotidine 20 mg 10/07/21 10:00 10/13/21 09:46 Famotidine 20 Mg Tab PO 20 mg DAILY FREDI Administration Heparin Sodium (Porcine) 5,000 unit 10/06/21 14:00 10/13/21 13:25 Heparin 5,000 Unit/1 Ml Vial SUB-Q 5,000 unit Q8HR FREDI Administration Hydralazine HCl 10 mg 10/06/21 18:38 10/08/21 00:41 Hydralazine 20 Mg/1 Ml Inj IV 10 mg Q4HR PRN Administration Hypertension Magnesium Hydroxide 30 ml 10/06/21 01:42 Magnesium Hydroxide (Mom) Oral Liqd Udc PO Q4H PRN Constipation Metoclopramide HCl 2.5 mg 10/06/21 01:59 Metoclopramide 10 Mg/10 Ml Oral Liqd PO Q6H PRN Nausea And Vomiting Nifedipine 90 mg 10/09/21 10:00 10/13/21 09:46 Nifedipine Xl 90 Mg Tab PO 90 mg QDAY FREDI Administration Ondansetron HCl 4 mg 10/06/21 01:42 Ondansetron 4 Mg/2 Ml Inj IV Q8H PRN Nausea And Vomiting Promethazine HCl 25 mg 10/06/21 01:42 Promethazine 25 Mg Rect Supp RI Q6H PRN Nausea And Vomiting Sodium Chloride 10 ml 10/06/21 10:00 10/13/21 09:46 Sodium Chloride 0.9% 10 Ml Flush Syringe IV 10 ml BID FREDI Administration Sodium Chloride 10 ml 10/06/21 01:42 Sodium Chloride 0.9% 10 Ml Flush Syringe IV PRN PRN LINE FLUSH Nutrition/Malnutrition Assess - Dietary Evaluation Nutrition/Malnutrition Findings: Nutrition Notes Start: 10/06/21 16:50 Freq: Status: Active Protocol: Document 10/12/21 18:47 NOEL (Rec: 10/12/21 19:17 NOEL [id number]) Nutrition Notes Need for Assessment generated from: Low BMI Initial or Follow up Reassessment Current Diagnosis Acute Kidney Injury, Hypertension,Stroke Other Pertinent Diagnosis AMS, HARDIK+HD, Leukocytosis. Current Diet Pureed Diet (since D 10/06), D Suppl (from B 10/13). Labs/Tests 10/12: BUN 52, Crea 4.9. Pertinent Medications 10/12: Nutritionally unremarkable. Height 6 ft 2 in Weight 56 kg [place] Body Weight (kg) 86.36 BMI 15.8 Weight change and time frame Anthropometric data from [facility] visit 05/16/21: Wt 63.4 Kg, BMI 17.9 Kg/m2. Discrepancy of 18.843 Kg body weight loss in 6 days reported . Weight Status Underweight Subjective/Other Information RD consult for Low BMI assessment. Pt's PO intake of meals has been Negligible (0-25%), according to ADL notes. I will prescribe Dietary Supplements to compensate for poor or insufficient PO intake of meals. Pt is on Room Air, O2 saturation @ 98%, according to Physical Assessment History notes. Anthropometric data from [facility] visit 05/16/21: Wt 63.4 Kg, BMI 17.9 Kg/m2. Pt's Low BMI seems to correspond to a natural body composition, and related to a gradual loss of body weight along with chronic malnutrition, according to anthropometric information referred from previous visits. Pt needs total assistance with ADL activities, not a candidate for Nutrition Education. Percent of energy/protein needs met: Prescribed Pureed Diet provides for energy/protein needs (1,804 Kcal/77 g) during LOS; additionally, Dietary Supplements will compensate for possible poor or insufficient PO intake of meals with 1,275 Kcal and 57 g of protein. Burn Absent Trauma Absent GI Symptoms None Food Allergy No Skin Integrity/Comment L-Big Toe area of concern. Current % PO Negligible Minimum of two criteria Yes Energy Intake (severe) < or equal to 50% Estimated Energy Requirement > or equal to 5 days Interpretation of Weight Loss (severe) >7.5% in 3 months Fluid Accumulation N/A Reduced Instructional Assistant Strength N/A (non-severe) Protein-Calorie Malnutrition Severe #1 Nutrition Diagnosis Malnutrition Etiology Ongoing and concomitant chronic metabolic conditions. As Evidenced by Signs and Symptoms Poor appetite < or equal to 50 % Estimated Energy Requirement > or equal to 5 days, Loss of body weight >7.5% in 3 months . Is patient on ventilator? No Is Patient Ambulatory and/or Out of Bed No REE-([place]os[place]-St. Jeor-confined to bed) 1667.844 Kcal/Kg value to use for calculation 42 Approximate Energy Requirements Using 2352 kcal/Kg Calculation Used for Recommendations Kcal/kg Additional Notes Protein: >1.2 g/Kg IBW; >103 g /day. Fluids: 1 ml/Kcal, or as per MD. Nutrition Intervention Change Diet Order: Continue Pureed Diet. Add Supplement/Snack (indicate name/kcal Start 8 fl oz Nepro w/ /protein ) CARBSTEADY; TID. Provides kCal: 1,275 Provides Protein (gm) 57 Goal #1 Compensate, through dietary supplementation, for possible poor or insufficient PO intake of meals during LOS. Goal #2 Adjust the dietary intervention to better serve Pt's needs and clinical conditions during LOS. Follow-Up By: 10/19/21 Additional Comments Continue monitoring food tolerance, %PO intake of meals and ONS, and BM.
[2021-10-13 21:57] LABS: Myeloperoxidase Antibody <1.0 AI (<1.0)
[2021-10-14] MEDS: HEPARIN 5,000 UNIT/1 ML VIAL SUB-Q SCH ×3 (05:16→21:27)
[2021-10-14 05:22] LABS: Basophils % (Auto) 0.7 % (0.0-1.8); Eosinophils # (Auto) 0.2 K/mm3 (0.0-0.4); Eosinophils % (Auto) 3.3 % (0.0-4.3); Hematocrit 25.3 % (35.5-45.6); Hemoglobin 8.3 gm/dl (11.8-15.2); Lymphocytes # (Auto) 1.5 K/mm3 (1.2-5.4); Lymphocytes % (Auto) 26.8 % (13.4-35.0); Mean Corpuscular HGB Conc 33 % (32-34); Mean Corpuscular Volume 90 fl (84-94); Monocytes # (Auto) 0.8 K/mm3 (0.0-0.8); Monocytes % (Auto) 14.4 % (0.0-7.3); Platelet Count 186 K/mm3 (140-440); Red Blood Count 2.81 M/mm3 (3.65-5.03); Red Cell Distribution Width 14.6 % (13.2-15.2)
[2021-10-14 05:44] LABS: Calcium 8.7 mg/dL (8.4-10.2)
[2021-10-14] MEDS ORDERED: HEPARIN/NS 5000 UNIT/500ML 500 ML IR ONE (08:08)
[2021-10-14] MEDS ORDERED: LIDOCAINE (1%) 10 MG/1 ML VIAL 20 ML MDV ONE (08:09)
[2021-10-14] MEDS ORDERED: ceFAZolin/Water 2 GM/20 ML 2 GM/20 ML SYRINGE IV ONE (08:09)
--- NOTE | 2021-10-14 08:59 | Progress Note ---
Assessment and Plan Assessment and plan: Patient is scheduled for permacath placement today Patient is n.p.o. status Daily hospital course: 10/06: Remains altered but stable on 2L NC, VSS. Still hyperkalemic this am, HD in progress at the bedside. Repeat BMP a hour after HD. CT head/Brain noted. Continue CVA workup, MRI brain, US carotid, and 2D echo pending. Neurology consulted. Patient is hypoglycemic this am, s/p IV insulin for hyperkalemia, continue BG check and hypoglycemic protocol. Will order diet if patient pass bedside swallow. PT/OT/Speech consulted. Left big toe ulcer noted. Per patient's daughter, patient is following with Vascular Surgery outpatient, revascularization was performed in the [facility] in the past and they were talking of possibly amputating that left toe. No evidence of any infectious process at this time and patient is currently hemodynamicaly stable. Will get wound care for wound management. Follow up with Vascular surgery outpatient for further management. 10/07: Increased confusion and agitation required wrist restraints overnight for safety. Patient is still confused this am, but calm and cooperative. MRI brain pending. Patient tolerated HD yesterday. Hypertensive this am, resumed home meds and continue PRN antihypertensives. Continue HD per Nephro. Patient is stable for transfer to Telemetry. 10/09/2021; patient is slightly agitated requiring restraints Awaiting return to SNF when medically stable Nephrology initiated hemodialysis, HD as needed If renal decides that patient needs long-term hemodialysis Case management will assist with outpatient HD chair scheduling 10/11/2021; patient is receiving hemodialysis Once nephrology confirms long-term HD, check with case management for outpatient HD placement Patient continues to be confused requiring restraints 10/12/2021; patient is more alert and awake responding appropriately Continue current management, if he continues to be manageable, will try to DC restraints 10/13/2021; today patient is more alert and awake,, CM assisting with outpatient HD placement Hemodialysis per schedule MWF, possible discharge in 1 to 2 days if stable 10/14/2021; patient had permacath followed by hemodialysis today tolerated well, Case management assisting with outpatient HD placement MRI brain show extensive chronic and age-related changes Punctate focus of increased diffusion-weighted signal in the left thalamic area This may be an evidence of recent or acute left thalamic infarction Continue current management PT evaluated the patient and recommended subacute rehab or [facility] for transition to LTAC DC planning per case management Assessment and Plan #Acute Metabolic Encephalopathy Multifactorial, treat the underlying cause Supportive care #Acute CVA: Left thalamic infarction MRI punctate focus of increased diffusion weighted signal in the left thalamic area Evidence of recent or acute left thalamic infarction - Presented with alerted mental status -Extensive neuro work-up reviewed - ASA and Statin initiated - Continue Neuro check per protocol -Continue PT/OT/Speech therapy - Neurology evaluated once on admission Awaiting placement/return to [facility]/awaiting authorization Acute on Chronic Kidney Disease; transition to end-stage renal disease Nephrology evaluated, initiated hemodialysis on 10/06/21 HD per schedule, MWF, outpatient HD placement in process per CM #Severe Hyperkalemia- resolved -Initial potassium was 7.1, managed appropriately Currently hemodialysis per schedule #Hypertension; moderate control Continue current antihypertensives As needed hydralazine #Big Toe Ulcer, Left/wound dressing. Elevate the limb Supportive care - Left big toe ulcer noted - Per patient's daughter, patient is following with Vascular Surgery outpatient, revascularization was performed in the [facility] in the past and they were talking of possibly amputating that left toe. - No evidence of any infectious process at this time and patient is currently hemodynamicaly stable - Will get wound care for wound management - Follow up with Vascular Surgery outpatient for further management. #Hypoglycemia-resolved Closely monitor blood sugars Adjust management as needed Closely monitor blood sugars Hypoglycemia resolved #GI/DVT Prophylaxis - PPI- Pepcid - Heparin SubQ - SCDs to bilateral lower extremities while in bed #Advance Care Planning - Disease education data, care plan, diagnoses, and prognosis were discussed with patient's daughter. Patient is a FULL code. Patient's daughter acknowledged understanding and agreement with current care plan. Closely monitor the patient and adjust the management as needed Plan of care reviewed with the patient and his nurse Discharge planning; PT recommended subacute rehab versus [facility] facility Patient would return to [facility] facility when medically stable Awaiting authorization Possible discharge in 1 to 2 days if stable Plan of care reviewed with the patient. His nurse s/p permacath placement followed by HD today processing outpatient HD placement. Closely monitor History Interval history: Patient is scheduled for permacath placement today. Patient had successful permacath placement today followed by hemodialysis Patient tolerated the procedure well No new complaints Vital signs noted Hospitalist Physical - Constitutional Vitals: Temp Pulse Resp BP Pulse Ox 98.7 F 62 18 126/64 97 10/14/21 04:15 10/14/21 04:15 10/14/21 04:15 10/14/21 04:15 10/14/21 04:15 General appearance: Present: no acute distress, well-nourished - EENT Eyes: Present: PERRL, EOM intact - Neck Neck: Present: supple, normal ROM - Respiratory Respiratory effort: normal Respiratory: bilateral: diminished, negative: rales, rhonchi, wheezing - Cardiovascular Rhythm: regular Heart Sounds: Present: S1 & S2 - Extremities Extremities: no ischemia, No edema - Abdominal General gastrointestinal: soft, non-tender, non-distended, normal bowel sounds - Integumentary Integumentary: Present: clear, warm - Psychiatric Psychiatric: other (Confused) - Neurologic Neurologic: moves all extremities Results - Labs CBC & Chem 7: 10/14/21 04:40 10/14/21 04:40 Labs: Laboratory Last Values WBC 5.6 K/mm3 (4.5-11.0) 10/14/21 04:40 RBC 2.81 M/mm3 (3.65-5.03) L 10/14/21 04:40 Hgb 8.3 gm/dl (11.8-15.2) L 10/14/21 04:40 Hct 25.3 % (35.5-45.6) L 10/14/21 04:40 MCV 90 fl (84-94) 10/14/21 04:40 MCH 30 pg (28-32) 10/14/21 04:40 MCHC 33 % (32-34) 10/14/21 04:40 RDW 14.6 % (13.2-15.2) 10/14/21 04:40 Plt Count 186 K/mm3 (140-440) 10/14/21 04:40 Lymph % (Auto) 26.8 % (13.4-35.0) 10/14/21 04:40 [place] % (Auto) 14.4 % (0.0-7.3) H 10/14/21 04:40 Eos % (Auto) 3.3 % (0.0-4.3) 10/14/21 04:40 Baso % (Auto) 0.7 % (0.0-1.8) 10/14/21 04:40 Lymph # (Auto) 1.5 K/mm3 (1.2-5.4) 10/14/21 04:40 [place] # (Auto) 0.8 K/mm3 (0.0-0.8) 10/14/21 04:40 Eos # (Auto) 0.2 K/mm3 (0.0-0.4) 10/14/21 04:40 Baso # (Auto) 0.0 K/mm3 (0.0-0.1) 10/14/21 04:40 Seg Neutrophils % 54.8 % (40.0-70.0) 10/14/21 04:40 Seg Neutrophils # 3.1 K/mm3 (1.8-7.7) 10/14/21 04:40 PT 16.6 Sec. (12.2-14.9) H 10/05/21 21:39 INR 1.20 (0.87-1.13) H 10/05/21 21:39 ABG pH 7.425 pH Units (7.350-7.450) 10/09/21 13:45 ABG pCO2 35.1 mm Hg 10/09/21 13:45 ABG pO2 75.9 mm Hg (80.0-90.0) L 10/09/21 13:45 ABG HCO3 22.5 mmol/L (20.0-26.0) 10/09/21 13:45 ABG O2 Saturation 96.4 % (95.0-99.0) 10/09/21 13:45 ABG O2 Content 14.5 (0.0-44) 10/09/21 13:45 ABG Base Excess -1.5 mmol/L (-2.0-3.0) 10/09/21 13:45 ABG Hemoglobin 10.8 gm/dl (14.0-18.0) L 10/09/21 13:45 ABG Carboxyhemoglobin 1.2 % (0.0-5.0) 10/09/21 13:45 ABG Methemoglobin 0.5 % (0.0-1.5) 10/09/21 13:45 Oxyhemoglobin 94.8 % (95.0-99.0) L 10/09/21 13:45 FiO2 21 % 10/09/21 13:45 Sodium 144 mmol/L (137-145) 10/14/21 04:40 Potassium 3.5 mmol/L (3.6-5.0) L 10/14/21 04:40 Chloride 103.7 mmol/L (98-107) 10/14/21 04:40 Carbon Dioxide 25 mmol/L (22-30) 10/14/21 04:40 Anion Gap 19 mmol/L 10/14/21 04:40 BUN 47 mg/dL (9-20) H 10/14/21 04:40 Creatinine 5.0 mg/dL (0.8-1.3) H 10/14/21 04:40 Estimated GFR 14 ml/min 10/14/21 04:40 BUN/Creatinine Ratio 9 % 10/14/21 04:40 Glucose 99 mg/dL (75-100) 10/14/21 04:40 POC Glucose 92 mg/dL (70-105) 10/14/21 06:18 Calcium 8.7 mg/dL (8.4-10.2) 10/14/21 04:40 Total Bilirubin 0.50 mg/dL (0.1-1.2) 10/05/21 22:41 AST 11 units/L (5-40) 10/05/21 22:41 ALT < 5 units/L (7-56) L 10/05/21 22:41 Alkaline Phosphatase 64 units/L (35-129) 10/05/21 22:41 Ammonia 14.0 umol/L (25-60) L 10/05/21 22:41 Serum Total Protein 6.9 g/dL (6.1-8.1) 10/07/21 05:14 Total Protein 8.3 g/dL (6.3-8.2) H 10/05/21 22:41 Albumin 3.7 g/dL (3.8-4.8) L 10/07/21 05:14 Albumin/Globulin Ratio 1.4 % 10/05/21 22:41 Dwatq-1-Dmvdaqpce 0.4 g/dL (0.2-0.3) H 10/07/21 05:14 Oqxoi-4-Wucuznkfv 1.0 g/dL (0.5-0.9) H 10/07/21 05:14 Beta Globulins 0.4 g/dL (0.2-0.5) 10/07/21 05:14 Gamma Globulins 1.1 g/dL (0.8-1.7) 10/07/21 05:14 Abnorm Protein Band 1 see below 10/07/21 05:14 PEP Interpretation see below H 10/07/21 05:14 Triglycerides 382 mg/dL (2-149) H 10/06/21 04:21 Cholesterol 273 mg/dL (50-199) H 10/06/21 04:21 LDL Cholesterol Direct 151 mg/dL (50-130) H 10/06/21 04:21 HDL Cholesterol 27 mg/dL (40-59) L 10/06/21 04:21 Cholesterol/HDL Ratio 10.11 % 10/06/21 04:21 PTH Intact 333.5 pg/mL (15-65) H 10/07/21 05:14 Urine Color Yellow (Yellow) 10/06/21 Unknown Urine Turbidity Clear (Clear) 10/06/21 Unknown Urine pH 5.0 (5.0-7.0) 10/06/21 Unknown Ur Specific [place] 1.015 (1.003-1.030) 10/06/21 Unknown Urine Protein <15 mg/dl mg/dL (Negative) 10/06/21 Unknown Urine Glucose (UA) Neg mg/dL (Negative) 10/06/21 Unknown Urine Ketones Neg mg/dL (Negative) 10/06/21 Unknown Urine Blood Sm (Negative) 10/06/21 Unknown Urine Nitrite Neg (Negative) 10/06/21 Unknown Urine Bilirubin Neg (Negative) 10/06/21 Unknown Urine Urobilinogen < 2.0 mg/dL (<2.0) 10/06/21 Unknown Ur Leukocyte Esterase Neg (Negative) 10/06/21 Unknown Urine WBC (Auto) 2.0 /HPF (0.0-6.0) 10/06/21 Unknown Urine RBC (Auto) 4.0 /HPF (0.0-6.0) 10/06/21 Unknown U Epithel Cells (Auto) 3.0 /HPF (0-13.0) 10/06/21 Unknown Urine Bacteria (Auto) 1+ /HPF (Negative) 10/06/21 Unknown Hyaline Casts 14 /LPF 10/06/21 Unknown Urine Mucus Few /HPF 10/06/21 Unknown Urine Yeast (Budding) 2+ /HPF 10/06/21 Unknown Urine Creatinine 234.3 mg/dL (0.1-20.0) H 10/06/21 14:04 Protein/Creatinin Ratio 0.12 10/06/21 14:04 Urine Total Protein 28 mg/dL (5-11.8) H 10/06/21 14:04 Salicylates < 0.3 mg/dL (2.8-20.0) L 10/05/21 22:41 Urine Opiates Screen Presumptive negative 10/06/21 Unknown Urine Methadone Screen Presumptive negative 10/06/21 Unknown Ur Barbiturates Screen Presumptive negative 10/06/21 Unknown Ur Phencyclidine Scrn Presumptive negative 10/06/21 Unknown Ur Amphetamines Screen Presumptive negative 10/06/21 Unknown U Benzodiazepines Scrn Presumptive negative 10/06/21 Unknown Urine Cocaine Screen Presumptive negative 10/06/21 Unknown U Marijuana (THC) Screen Presumptive negative 10/06/21 Unknown Drugs of Abuse Note Disclamer 10/06/21 Unknown Plasma/Serum Alcohol < 0.01 % (0-0.07) 10/05/21 21:39 LILIYA Screen Negative (Negative) 10/07/21 05:14 Proteinase 3 (PR3) Ab <1.0 AI (<1.0) 10/07/21 05:14 Myeloperoxidase Ab <1.0 AI (<1.0) 10/07/21 05:14 Complement C3 117 mg/dL (82-185) 10/07/21 05:14 Complement C4 40 mg/dL (15-53) 10/07/21 05:14 Coronavirus (PCR) Negative (Negative) 10/12/21 14:10 Hepatitis A IgM Ab Non-reactive (NonReactive) 10/06/21 09:12 Hep Bs Antigen Non-reactive (Negative) 10/06/21 09:12 Hep B Core IgM Ab Non-reactive (NonReactive) 10/06/21 09:12 Hepatitis C Antibody Non-reactive (NonReactive) 10/06/21 09:12 Paez/IV: Voiding Method Condom Catheter Active Medications - Current Medications Current Medications: Generic Name Dose Route Start Last Admin Trade Name Freq PRN Reason Stop Dose Admin Acetaminophen 650 mg 10/06/21 01:42 Acetaminophen 325 Mg Tab PO Q4H PRN Pain MILD(1-3)/Fever >100.5/MARROQUIN Aspirin 81 mg 10/08/21 10:00 10/13/21 09:46 Aspirin 81 Mg Tab Chew PO 81 mg QDAY FREDI Administration Atorvastatin Calcium 40 mg 10/06/21 22:00 10/13/21 22:33 Atorvastatin 40 Mg Tab PO 40 mg QHS FREDI Administration Bisacodyl 10 mg 10/06/21 01:42 Bisacodyl 10 Mg Rect Supp FL QDAY PRN Constipation Carvedilol 6.25 mg 10/07/21 10:00 10/13/21 22:35 Carvedilol 6.25 Mg Tab PO 6.25 mg BID FREDI Administration Dextrose 50 ml 10/06/21 01:42 Dextrose 50% In Water (25gm) 50 Ml Syringe IV Q30MIN PRN Hypoglycemia Protocol Famotidine 20 mg 10/07/21 10:00 10/13/21 09:46 Famotidine 20 Mg Tab PO 20 mg DAILY FREDI Administration Heparin Sodium (Porcine) 5,000 unit 10/06/21 14:00 10/14/21 05:16 Heparin 5,000 Unit/1 Ml Vial SUB-Q Not Given Q8HR [facility] Hydralazine HCl 10 mg 10/06/21 18:38 10/08/21 00:41 Hydralazine 20 Mg/1 Ml Inj IV 10 mg Q4HR PRN Administration Hypertension Magnesium Hydroxide 30 ml 10/06/21 01:42 Magnesium Hydroxide (Mom) Oral Liqd Udc PO Q4H PRN Constipation Metoclopramide HCl 2.5 mg 10/06/21 01:59 Metoclopramide 10 Mg/10 Ml Oral Liqd PO Q6H PRN Nausea And Vomiting Nifedipine 90 mg 10/09/21 10:00 10/13/21 09:46 Nifedipine Xl 90 Mg Tab PO 90 mg QDAY FREDI Administration Ondansetron HCl 4 mg 10/06/21 01:42 Ondansetron 4 Mg/2 Ml Inj IV Q8H PRN Nausea And Vomiting Promethazine HCl 25 mg 10/06/21 01:42 Promethazine 25 Mg Rect Supp FL Q6H PRN Nausea And Vomiting Sodium Chloride 10 ml 10/06/21 10:00 10/13/21 22:35 Sodium Chloride 0.9% 10 Ml Flush Syringe IV 10 ml BID FREDI Administration Sodium Chloride 10 ml 10/06/21 01:42 Sodium Chloride 0.9% 10 Ml Flush Syringe IV PRN PRN LINE FLUSH Nutrition/Malnutrition Assess - Dietary Evaluation Nutrition/Malnutrition Findings: Nutrition Notes Start: 10/06/21 16:50 Freq: Status: Active Protocol: Document 10/12/21 18:47 NOEL (Rec: 10/12/21 19:17 NOEL [id number]) Nutrition Notes Need for Assessment generated from: Low BMI Initial or Follow up Reassessment Current Diagnosis Acute Kidney Injury, Hypertension,Stroke Other Pertinent Diagnosis AMS, HARDIK+HD, Leukocytosis. Current Diet Pureed Diet (since D 10/06), D Suppl (from B 10/13). Labs/Tests 10/12: BUN 52, Crea 4.9. Pertinent Medications 10/12: Nutritionally unremarkable. Height 6 ft 2 in Weight 56 kg [place] Body Weight (kg) 86.36 BMI 15.8 Weight change and time frame Anthropometric data from [facility] visit 05/16/21: Wt 63.4 Kg, BMI 17.9 Kg/m2. Discrepancy of 18.843 Kg body weight loss in 6 days reported . Weight Status Underweight Subjective/Other Information RD consult for Low BMI assessment. Pt's PO intake of meals has been Negligible (0-25%), according to ADL notes. I will prescribe Dietary Supplements to compensate for poor or insufficient PO intake of meals. Pt is on Room Air, O2 saturation @ 98%, according to Physical Assessment History notes. Anthropometric data from [facility] visit 05/16/21: Wt 63.4 Kg, BMI 17.9 Kg/m2. Pt's Low BMI seems to correspond to a natural body composition, and related to a gradual loss of body weight along with chronic malnutrition, according to anthropometric information referred from previous visits. Pt needs total assistance with ADL activities, not a candidate for Nutrition Education. Percent of energy/protein needs met: Prescribed Pureed Diet provides for energy/protein needs (1,804 Kcal/77 g) during LOS; additionally, Dietary Supplements will compensate for possible poor or insufficient PO intake of meals with 1,275 Kcal and 57 g of protein. Burn Absent Trauma Absent GI Symptoms None Food Allergy No Skin Integrity/Comment L-Big Toe area of concern. 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 As Evidenced by Signs and Symptoms Poor appetite < or equal to 50 % Estimated Energy Requirement > or equal to 5 days, Loss of body weight >7.5% in 3 months . Is patient on ventilator? No Is Patient Ambulatory and/or Out of Bed No REE-([facility]-confined to bed) 1667.844 Kcal/Kg value to use for calculation 42 Approximate Energy Requirements Using 2352 kcal/Kg Calculation Used for Recommendations Kcal/kg Additional Notes Protein: >1.2 g/Kg IBW; >103 g /day. Fluids: 1 ml/Kcal, or as per MD. Nutrition Intervention Change Diet Order: Continue Pureed Diet. Add Supplement/Snack (indicate name/kcal Start 8 fl oz Nepro w/ /protein ) CARBSTEADY; TID. Provides kCal: 1,275 Provides Protein (gm) 57 Goal #1 Compensate, through dietary supplementation, for possible poor or insufficient PO intake of meals during LOS. Goal #2 Adjust the dietary intervention to better serve Pt's needs and clinical conditions during LOS. Follow-Up By: 10/19/21 Additional Comments Continue monitoring food tolerance, %PO intake of meals and ONS, and BM.
[2021-10-14] MEDS ORDERED: SODIUM CHLORIDE 0.9% 250ML 250 ML ONE (09:08)
[2021-10-14] MEDS: HEPARIN 10,000 UNITS/10 ML VIAL ONE ×2 (09:18→09:44)
--- NOTE | 2021-10-14 10:11 | Operative Report ---
Operative Report Operative Report: Date of procedure: 10/14/2021 Pre-operative diagnosis: Acute on Chronic Renal Failure Post-operative diagnosis: Same Procedure(s): 1. Ultrasound-Guided Access Right Internal Vein 2. Placement of 23 cm GlidePath Permacath 3. Radiologic Supervision with Interpretation 4. Monitored Moderate Sedation (Total Anesthesia Time: 15 Minutes) Surgeon: Henrik Barillas MD Privacy Compliance Manager: None Anesthesia: Local/Monitored Moderate Sedation Total Anesthesia Time: 15 Minutes EBL: Minimal Counts: Correct Complications: None Condition: Stable Findings: Successful placement of right IJ permacath with the distal tip in the right atrium and no evidence of pneumothorax at the completion of the case. Specimen: None Indication: The patient is a 71-year-old male who presented with mental status changes and the need for emergent dialysis. He underwent placement of a Vas-Cath however he requires a permacath prior to discharge. His family was given the risk, benefits, and alternative procedures and consented to the procedure. Description of Procedure: The patient was brought to the cardiac cath rn and laid in supine position and the right neck and chest were prepped and draped in normal sterile fashion. The patient's Vas-Cath was placed into cephalad position to be used for the permacath access. The new stick and access site was required for placement of the permacath. Ultrasound was used to identify the right internal jugular vein and the overlying skin and soft tissue was anesthetized with lidocaine. An 11 blade was used to make a small stab incision and a 21-gauge micropuncture needle was used with ultrasound guidance to enter the right internal jugular vein. A 0.018 micropuncture wire was advanced into the inferior vena cava under fluoroscopy and after removing the needle the micropuncture sheath was advanced into the internal jugular vein by Seldinger technique. The wire and inner cannula were removed and a 0.035 J-wire was advanced into the inferior vena cava under direct fluoroscopic visualization. The tract was serially dilated up to a 16 Welsh peel-away safety sheath. An exit site on the chest was then chosen and the presumed tunnel was anesthetized with lidocaine. A small stab incision was made on the chest and then the permacath was connected to the tunneler and pulled antegrade through the tunnel. The J-wire and inner cannula were remove from the SafeSheath and the catheter was inserted into the safe sheath. The safe sheath was then peeled away while advancing the catheter. The catheter was positioned under fluoroscopy with the distal tip in the right atrium. Once in adequate position, both ports were aspirated, flushed, and primed with the appropriate amount of heparin. The neck incision was then closed with 4-0 Monocryl in interrupted subcuticular fashion and dressed with Dermabond. The permacath was secured in place with a 2-0 Ethilon in interrupted fashion and dressed with a sterile dressing. Final fluoroscopy demonstrated the catheter was in adequate position with the distal tip in the right atrium and no evidence of pneumothorax. The patient tolerated the procedure well. All sponge, needle, and instrument counts were correct. The patient was taken to recovery in stable condition.
--- NOTE | 2021-10-14 13:13 | Progress Note ---
Assessment and Plan 71-year-old male resident of [facility] with known history of hypertension , CHF sent to the emergency room for evaluation of changes in mental status since yesterday. Patient was said not to be his normal self over the past 24 hours. Patient unable to give any good history at this time most of the information was obtained from the ER staff. Work-up in the emergency room , labs were significant for leukocytosis of 11.3, potassium of 7.7, BUN to 216 and creatinine of 18.1. EKG shows some peaked T waves. CT scan of the head consistent with features of microvascular ischemia bilateral lacunar infarcts within the basal ganglia and left central semiovale. Area of hypoattenuation involving the right temporal lobe. Subacute ischemia is not excluded. MRI recommended for further evaluation. Teleneurology consulted by the ER physician and recommendation was to have CVA work-up. Geotechnicial Properties Technician was also consulted regarding lab findings and EKG findings and admitted dialysis was recommended. Patient went to flower shop laborer/designer to get his Perma cath. Nursing staff told me no change in patients clinical condition. Patient awake. on room air . O2 saturation 100%. No acute respiratory distress. Patient afebrile. No leukocytosis. Blood pressure 113/79, Pulse 65, Respirations 22. Chest ray done 10/06/21 reported Mild bibasilar linear atelectatic change. Mild chronic changes. No definite pneumonic infiltrates or effusions. No pneumothorax. Patient is on S/C Heparin and famotidine. - Patient Problems (1) CVA (cerebral vascular accident) Current Visit: Yes Status: Acute Plan to address problem: Management as per primary care and neurology. (2) Altered mental status Current Visit: Yes Status: Acute Plan to address problem: Management as per primary care. (3) HARDIK (acute kidney injury) Current Visit: Yes Status: Acute Plan to address problem: Management as per nephrology. (4) Bilateral lower leg cellulitis Current Visit: No Status: Acute Plan to address problem: Recommend to consult infectious diseases. Subjective Date of service: 10/14/21 Principal diagnosis: AMS; HARDIK; Severe hyperkalemia; Hypertension; CMOP; Mild leukocytosis Interval history: 71-year-old male resident of [facility] with known history of hypert ension , CHF sent to the emergency room for evaluation of changes in mental status since yesterday. Patient was said not to be his normal self over the past 24 hours. Patient unable to give any good history at this time most of the information was obtained from the ER staff. Work-up in the emergency room , labs were significant for leukocytosis of 11.3, potassium of 7.7, BUN to 216 and creatinine of 18.1. EKG shows some peaked T waves. CT scan of the head consistent with features of microvascular ischemia bilateral lacunar infarcts within the basal ganglia and left central semiovale. Area of hypoattenuation involving the right temporal lobe. Subacute ischemia is not excluded. MRI recommended for further evaluation. Teleneurology consulted by the ER physician and recommendation was to have CVA work-up. Geotechnicial Properties Technician was also consulted regarding lab findings and EKG findings and admitted dialysis was recommended. Patient went to [facility] shop lab[facility]/designer to get his Perma cath. Nursing staff told me no change in patients clinical condition. Patient awake. on room air . O2 saturation 100%. No acute respiratory distress. Patient afebrile. No leukocytosis. Blood pressure 113/79, Pulse 65, Respirations 22. Chest ray done 10/06/21 reported Mild bibasilar linear atelectatic change. Mild chronic changes. No definite pneumonic infiltrates or effusions. No pneumothorax. Patient is on S/C Heparin and famotidine. Objective - Exam Narrative Exam: Vitals reviewed General appearance: Present: no acute distress, cachectic - EENT Eyes: Present: PERRL ENT: hearing intact - Neck Neck: Present: normal ROM RIJ HD catheter - Respiratory Respiratory effort: normal Respiratory: bilateral: diminished - Cardiovascular Rhythm: regular Heart Sounds: Present: S1 & S2 - Extremities Extremities: no ischemia, pulses intact, pulses symmetrical, abnormal (Lt. big toe ulcer noted) Peripheral Pulses: within normal limits - Abdominal General gastrointestinal: soft, non-distended, normal bowel sounds - Integumentary Integumentary: Present: warm, dry - Psychiatric Psychiatric: appropriate mood/affect, cooperative, other (AAOx1, pleasantly confused) - Neurologic Neurologic: moves all extremities, other (AAOx1, pleasantly confused) Vital Signs - 12hr 10/14/21 10/14/21 10/14/21 04:15 07:10 10:30 Temperature 98.7 F Pulse Rate 62 58 L 60 Respiratory 18 16 Rate Blood Pressure 126/64 144/77 O2 Sat by Pulse 97 97 Oximetry O2 Sat by Pulse Oximetry [ Anterior Bilateral] 10/14/21 10/14/21 10/14/21 10:45 11:00 11:10 Temperature 97.6 F Pulse Rate 63 67 50 L Respiratory 18 Rate Blood Pressure 149/85 125/90 147/68 O2 Sat by Pulse Oximetry O2 Sat by Pulse 100 Oximetry [ Anterior Bilateral] Constitutional: no acute distress, alert Eyes: non-icteric ENT: oropharynx moist Neck: supple, no lymphadenopathy Effort: normal Ascultation: Bilateral: diminished breath sounds Cardiovascular: regular rate and rhythm Gastrointestinal: normoactive bowel sounds, soft, non-tender Integumentary: cellulitis Extremities: other (Stasis dermatitis.) Neurologic: pupils equal and round, unable to assess Psychiatric: other (Confused. ) CBC and BMP: 10/14/21 04:40 10/14/21 04:40 ABG, PT/INR, D-dimer: ABG ABG pH 7.425 pH Units (7.350-7.450) 10/09/21 13:45 ABG pCO2 35.1 mm Hg 10/09/21 13:45 ABG pO2 75.9 mm Hg (80.0-90.0) L 10/09/21 13:45 ABG O2 Saturation 96.4 % (95.0-99.0) 10/09/21 13:45 PT/INR, D-dimer PT 16.6 Sec. (12.2-14.9) H 10/05/21 21:39 INR 1.20 (0.87-1.13) H 10/05/21 21:39 Abnormal lab findings: Abnormal Labs 10/05/21 10/05/21 10/05/21 21:39 21:39 22:41 WBC 11.3 H RBC Hgb Hct RDW 15.3 H Plt Count Lymph % (Auto) 7.6 L [place] % (Auto) 7.7 H Lymph # (Auto) 0.9 L [place] # (Auto) 0.9 H Seg Neutrophils % 83.7 H Seg Neutrophils # 9.5 H PT 16.6 H INR 1.20 H ABG pO2 ABG Hemoglobin Oxyhemoglobin Sodium Potassium Chloride Carbon Dioxide BUN Creatinine Glucose POC Glucose Calcium ALT Ammonia Total Protein Albumin Lgrsy-1-Tfakjhwjd Ykwpl-3-Omdvknqks PEP Interpretation Triglycerides Cholesterol LDL Cholesterol Direct HDL Cholesterol PTH Intact Urine Creatinine Urine Total Protein Salicylates < 0.3 L 10/05/21 10/05/21 10/06/21 22:41 22:41 04:21 WBC RBC Hgb Hct RDW Plt Count Lymph % (Auto) [place] % (Auto) Lymph # (Auto) [place] # (Auto) Seg Neutrophils % Seg Neutrophils # PT INR ABG pO2 ABG Hemoglobin Oxyhemoglobin Sodium Potassium 7.7 H* 6.1 H* D Chloride Carbon Dioxide 19 L BUN 216 H 224 H Creatinine 18.1 H 19.7 H Glucose 117 H 64 L POC Glucose Calcium 11.0 H ALT < 5 L Ammonia 14.0 L Total Protein 8.3 H Albumin Qgkzs-9-Asrnikcda Tkbtv-3-Lwbzmrnkl PEP Interpretation Triglycerides Cholesterol LDL Cholesterol Direct HDL Cholesterol PTH Intact Urine Creatinine Urine Total Protein Salicylates 10/06/21 10/06/21 10/06/21 04:21 14:04 17:30 WBC RBC Hgb Hct RDW Plt Count Lymph % (Auto) [place] % (Auto) Lymph # (Auto) [place] # (Auto) Seg Neutrophils % Seg Neutrophils # PT INR ABG pO2 ABG Hemoglobin Oxyhemoglobin Sodium Potassium Chloride Carbon Dioxide BUN 131 H Creatinine 12.7 H Glucose 157 H POC Glucose Calcium ALT Ammonia Total Protein Albumin Zgsyj-0-Spwmcdneu Gfela-1-Gthndyihk PEP Interpretation Triglycerides 382 H Cholesterol 273 H LDL Cholesterol Direct 151 H HDL Cholesterol 27 L PTH Intact Urine Creatinine 234.3 H Urine Total Protein 28 H Salicylates 10/07/21 10/07/21 10/07/21 05:14 05:14 05:14 WBC RBC 3.37 L Hgb 10.0 L Hct 30.1 L D RDW Plt Count 117 L Lymph % (Auto) 10.4 L [place] % (Auto) 7.9 H Lymph # (Auto) 0.7 L [place] # (Auto) Seg Neutrophils % 80.2 H Seg Neutrophils # PT INR ABG pO2 ABG Hemoglobin Oxyhemoglobin Sodium Potassium Chloride Carbon Dioxide BUN 123 H Creatinine 10.9 H Glucose 119 H POC Glucose Calcium ALT Ammonia Total Protein Albumin Nsjej-2-Aqwrtvkpk Lyjis-9-Kdqfvjvtp PEP Interpretation Triglycerides Cholesterol LDL Cholesterol Direct HDL Cholesterol PTH Intact 333.5 H Urine Creatinine Urine Total Protein Salicylates 10/07/21 10/07/21 10/08/21 05:14 21:43 04:56 WBC RBC 3.59 L Hgb 10.4 L Hct 32.2 L RDW Plt Count 116 L Lymph % (Auto) [place] % (Auto) Lymph # (Auto) [place] # (Auto) Seg Neutrophils % Seg Neutrophils # PT INR ABG pO2 ABG Hemoglobin Oxyhemoglobin Sodium Potassium Chloride Carbon Dioxide BUN Creatinine Glucose POC Glucose 144 H Calcium ALT Ammonia Total Protein Albumin 3.7 L Zowfn-8-Smziwfzsw 0.4 H Nnrwr-3-Zmzfabtac 1.0 H PEP Interpretation see below H Triglycerides Cholesterol LDL Cholesterol Direct HDL Cholesterol PTH Intact Urine Creatinine Urine Total Protein Salicylates 10/08/21 10/08/21 10/08/21 04:56 11:22 15:36 WBC RBC Hgb Hct RDW Plt Count Lymph % (Auto) [place] % (Auto) Lymph # (Auto) [place] # (Auto) Seg Neutrophils % Seg Neutrophils # PT INR ABG pO2 ABG Hemoglobin Oxyhemoglobin Sodium 147 H Potassium Chloride 109.8 H Carbon Dioxide 20 L BUN 123 H Creatinine 9.7 H Glucose 110 H POC Glucose 145 H 139 H Calcium ALT Ammonia Total Protein Albumin Ydwgq-9-Ndatviblu Mmkiw-2-Ablkfghyn PEP Interpretation Triglycerides Cholesterol LDL Cholesterol Direct HDL Cholesterol PTH Intact Urine Creatinine Urine Total Protein Salicylates 10/09/21 10/09/21 10/09/21 12:36 13:45 18:01 WBC RBC Hgb Hct RDW Plt Count Lymph % (Auto) [place] % (Auto) Lymph # (Auto) [place] # (Auto) Seg Neutrophils % Seg Neutrophils # PT INR ABG pO2 75.9 L ABG Hemoglobin 10.8 L Oxyhemoglobin 94.8 L Sodium Potassium Chloride Carbon Dioxide BUN Creatinine Glucose POC Glucose 121 H 143 H Calcium ALT Ammonia Total Protein Albumin Vgvfr-8-Uemvtqriz Jrigt-3-Afyanclpr PEP Interpretation Triglycerides Cholesterol LDL Cholesterol Direct HDL Cholesterol PTH Intact Urine Creatinine Urine Total Protein Salicylates 10/10/21 10/10/21 10/11/21 00:16 05:09 05:13 WBC RBC Hgb Hct RDW Plt Count Lymph % (Auto) [place] % (Auto) Lymph # (Auto) [place] # (Auto) Seg Neutrophils % Seg Neutrophils # PT INR ABG pO2 ABG Hemoglobin Oxyhemoglobin Sodium 147 H Potassium Chloride 109.0 H Carbon Dioxide BUN 103 H 45 H Creatinine 6.8 H 4.6 H Glucose 108 H POC Glucose 108 H Calcium ALT Ammonia Total Protein Albumin Mlske-5-Gjwyoziht Rabot-5-Jbphnxqdp PEP Interpretation Triglycerides Cholesterol LDL Cholesterol Direct HDL Cholesterol PTH Intact Urine Creatinine Urine Total Protein Salicylates 10/12/21 10/12/21 10/13/21 04:50 16:31 00:01 WBC RBC Hgb Hct RDW Plt Count Lymph % (Auto) [place] % (Auto) Lymph # (Auto) [place] # (Auto) Seg Neutrophils % Seg Neutrophils # PT INR ABG pO2 ABG Hemoglobin Oxyhemoglobin Sodium Potassium Chloride Carbon Dioxide BUN 52 H Creatinine 4.9 H Glucose POC Glucose 117 H 111 H Calcium ALT Ammonia Total Protein Albumin Dcdwp-8-Dgnqqojmm Atirz-7-Midkzgibq PEP Interpretation Triglycerides Cholesterol LDL Cholesterol Direct HDL Cholesterol PTH Intact Urine Creatinine Urine Total Protein Salicylates 10/13/21 10/13/21 10/13/21 12:30 18:27 23:30 WBC RBC Hgb Hct RDW Plt Count Lymph % (Auto) [place] % (Auto) Lymph # (Auto) [place] # (Auto) Seg Neutrophils % Seg Neutrophils # PT INR ABG pO2 ABG Hemoglobin Oxyhemoglobin Sodium Potassium Chloride Carbon Dioxide BUN Creatinine Glucose POC Glucose 116 H 133 H 109 H Calcium ALT Ammonia Total Protein Albumin Batoi-1-Dpqqbhabd Tkbws-5-Nhtogkrtr PEP Interpretation Triglycerides Cholesterol LDL Cholesterol Direct HDL Cholesterol PTH Intact Urine Creatinine Urine Total Protein Salicylates 10/14/21 10/14/21 04:40 04:40 WBC RBC 2.81 L Hgb 8.3 L Hct 25.3 L RDW Plt Count Lymph % (Auto) [place] % (Auto) 14.4 H Lymph # (Auto) [place] # (Auto) Seg Neutrophils % Seg Neutrophils # PT INR ABG pO2 ABG Hemoglobin Oxyhemoglobin Sodium Potassium 3.5 L Chloride Carbon Dioxide BUN 47 H Creatinine 5.0 H Glucose POC Glucose Calcium ALT Ammonia Total Protein Albumin Gcclt-4-Cthmcrkuo Gbude-0-Qxoxqdlcw PEP Interpretation Triglycerides Cholesterol LDL Cholesterol Direct HDL Cholesterol PTH Intact Urine Creatinine Urine Total Protein Salicylates Allied health notes reviewed: nursing
[2021-10-14] MEDS: FAMOTIDINE 20 MG TAB PO SCH (14:02)
[2021-10-14] MEDS: carvediloL 6.25 MG TAB PO SCH ×2 (14:02→21:27)
[2021-10-14] MEDS: ASPIRIN 81 MG TAB CHEW PO SCH (14:03)
[2021-10-14] MEDS: NIFEdipine XL 90 MG TAB PO SCH (14:03)
--- NOTE | 2021-10-14 15:55 | Progress Note ---
Subjective Date of service: 10/14/21 Principal diagnosis: AMS; HARDIK; Severe hyperkalemia; Hypertension; CMOP; Mild leukocytosis Interval history: # Acute Kidney Injury/Kidney Failure: creatinine 18, BUN>200 with hyperkalemia, acidosis, likely uremic effects. Noted to have creatinine 1.2 earlier this year so suspect acute kidney injury - STAT HD started 10/06 for hyperkalemia, azotemia/uremia; s/p daily HD x3 days for now given uremia/azotemia and need to avoid disequilibrium - plan for MWF HD for ongoing solute/toxin management - renal ultrasound acutely WNL, no obstruction - urinalysis reviewed, check serologies to rule out GN injury, still pending - note PTH high, may have secondary to underlying CKD - strict Is/Os- not much urine output noted - assess for renal recovery as able - avoid nephrotoxins - hold diuretics, EMILIANO/ARB for now s/p perm cath--await outpatient hd arrangement # HTN: BP stable currently, per primary team due to HTN, Avoid ARB for now given hyperkalemia, HARDIK. Can restart once HARDIK improves or clearly CKD progression # Altered Mentation: unknown baseline # CVA: care per primary, neurology Subjective Interval history: No acute events noted, remains drowsy in bed Objective - Exam Narrative Exam: General appearance: no distress, frail EENT: ATNC Neck: Present: neck supple Respiratory: Clear to Ascultation, Normal Exam Heart: regular Gastrointestinal: Present: normoactive bowel sounds Integumentary: no rash, cool/clammy Neurologic: asterixis/tremulous, confused Objective - Vital Signs Vital signs: Vital Signs - 12hr 10/14/21 10/14/21 10/14/21 04:15 07:10 10:30 Temperature 98.7 F Pulse Rate 62 58 L 60 Respiratory 18 16 Rate Blood Pressure 126/64 144/77 O2 Sat by Pulse 97 97 Oximetry O2 Sat by Pulse Oximetry [ Anterior Bilateral] 10/14/21 10/14/21 10/14/21 10:45 11:00 11:10 Temperature 97.6 F Pulse Rate 63 67 50 L Respiratory 18 Rate Blood Pressure 149/85 125/90 147/68 O2 Sat by Pulse Oximetry O2 Sat by Pulse 100 Oximetry [ Anterior Bilateral] 10/14/21 10/14/21 10/14/21 11:15 11:45 12:00 Temperature Pulse Rate 64 58 L 50 L Respiratory Rate Blood Pressure 137/81 144/76 132/86 O2 Sat by Pulse Oximetry O2 Sat by Pulse Oximetry [ Anterior Bilateral] 10/14/21 10/14/21 10/14/21 12:15 12:30 12:45 Temperature Pulse Rate 56 L 59 L 58 L Respiratory Rate Blood Pressure 153/74 126/75 138/77 O2 Sat by Pulse Oximetry O2 Sat by Pulse Oximetry [ Anterior Bilateral] 10/14/21 10/14/21 10/14/21 13:00 13:15 13:45 Temperature 97.3 F L Pulse Rate 55 L 63 55 L Respiratory 20 Rate Blood Pressure 145/79 141/80 149/68 O2 Sat by Pulse Oximetry O2 Sat by Pulse 100 Oximetry [ Anterior Bilateral] 10/14/21 10/14/21 14:02 15:08 Temperature Pulse Rate 65 60 Respiratory Rate Blood Pressure 113/79 139/77 O2 Sat by Pulse Oximetry O2 Sat by Pulse Oximetry [ Anterior Bilateral] - Lab 10/14/21 04:40 10/14/21 04:40 Most recent lab results ABG pH 7.425 pH Units (7.350-7.450) 10/09/21 13:45 ABG pCO2 35.1 mm Hg 10/09/21 13:45 ABG pO2 75.9 mm Hg (80.0-90.0) L 10/09/21 13:45 ABG HCO3 22.5 mmol/L (20.0-26.0) 10/09/21 13:45 ABG O2 Saturation 96.4 % (95.0-99.0) 10/09/21 13:45 Calcium 8.7 mg/dL (8.4-10.2) 10/14/21 04:40 Urine Creatinine 234.3 mg/dL (0.1-20.0) H 10/06/21 14:04 Urine Total Protein 28 mg/dL (5-11.8) H 10/06/21 14:04 Medications & Allergies - Medications Allergies/Adverse Reactions: Allergies No Known Allergies Allergy (Verified 05/09/21 13:32) Home Medications: Home Medications Medication Instructions Recorded Confirmed Last Taken Type Furosemide [Lasix TAB] 40 mg PO QDAY #30 tablet 05/10/21 10/08/21 Unknown Rx carvediloL [Coreg] 6.25 mg PO BID #60 tablet 05/11/21 10/08/21 Unknown Rx NIFEdipine [Nifedipine ER] 60 mg PO DAILY #30 tab 05/13/21 10/08/21 Unknown Rx Valsartan [Diovan] 160 mg PO QDAY #30 tablet 05/13/21 10/08/21 Unknown Rx Active Medications: Generic Name Dose Route Start Last Admin Trade Name Freq PRN Reason Stop Dose Admin Acetaminophen 650 mg 10/06/21 01:42 Acetaminophen 325 Mg Tab PO Q4H PRN Pain MILD(1-3)/Fever >100.5/MARROQUIN Aspirin 81 mg 10/08/21 10:00 10/14/21 14:03 Aspirin 81 Mg Tab Chew PO 81 mg QDAY FREDI Administration Atorvastatin Calcium 40 mg 10/06/21 22:00 10/13/21 22:33 Atorvastatin 40 Mg Tab PO 40 mg QHS FREDI Administration Bisacodyl 10 mg 10/06/21 01:42 Bisacodyl 10 Mg Rect Supp AL QDAY PRN Constipation Carvedilol 6.25 mg 10/07/21 10:00 10/14/21 14:02 Carvedilol 6.25 Mg Tab PO 6.25 mg BID FREDI Administration Dextrose 50 ml 10/06/21 01:42 Dextrose 50% In Water (25gm) 50 Ml Syringe IV Q30MIN PRN Hypoglycemia Protocol Famotidine 20 mg 10/07/21 10:00 10/14/21 14:02 Famotidine 20 Mg Tab PO 20 mg DAILY FREDI Administration Heparin Sodium (Porcine) 5,000 unit 10/06/21 14:00 10/14/21 14:49 Heparin 5,000 Unit/1 Ml Vial SUB-Q 5,000 unit Q8HR FREDI Administration Hydralazine HCl 10 mg 10/06/21 18:38 10/08/21 00:41 Hydralazine 20 Mg/1 Ml Inj IV 10 mg Q4HR PRN Administration Hypertension Magnesium Hydroxide 30 ml 10/06/21 01:42 Magnesium Hydroxide (Mom) Oral Liqd Udc PO Q4H PRN Constipation Metoclopramide HCl 2.5 mg 10/06/21 01:59 Metoclopramide 10 Mg/10 Ml Oral Liqd PO Q6H PRN Nausea And Vomiting Nifedipine 90 mg 10/09/21 10:00 10/14/21 14:03 Nifedipine Xl 90 Mg Tab PO 90 mg QDAY FREDI Administration Ondansetron HCl 4 mg 10/06/21 01:42 Ondansetron 4 Mg/2 Ml Inj IV Q8H PRN Nausea And Vomiting Promethazine HCl 25 mg 10/06/21 01:42 Promethazine 25 Mg Rect Supp AL Q6H PRN Nausea And Vomiting Sodium Chloride 10 ml 10/06/21 10:00 10/14/21 14:03 Sodium Chloride 0.9% 10 Ml Flush Syringe IV 10 ml BID FREDI Administration Sodium Chloride 10 ml 10/06/21 01:42 Sodium Chloride 0.9% 10 Ml Flush Syringe IV PRN PRN LINE FLUSH
[2021-10-15] MEDS: HEPARIN 5,000 UNIT/1 ML VIAL SUB-Q SCH ×3 (05:06→21:33)
--- NOTE | 2021-10-15 08:29 | Progress Note ---
Subjective Date of service: 10/15/21 Principal diagnosis: AMS; HARDIK; Severe hyperkalemia; Hypertension; CMOP; Mild leukocytosis Interval history: # Acute Kidney Injury/Kidney Failure: creatinine 18, BUN>200 with hyperkalemia, acidosis, likely uremic effects. Noted to have creatinine 1.2 earlier this year so suspect acute kidney injury - STAT HD started 10/06 for hyperkalemia, azotemia/uremia; s/p daily HD x3 days for now given uremia/azotemia and need to avoid disequilibrium - plan for MWF HD for ongoing solute/toxin management - renal ultrasound acutely WNL, no obstruction - urinalysis reviewed, check serologies to rule out GN injury, still pending - note PTH high, may have secondary to underlying CKD - strict Is/Os- not much urine output noted - assess for renal recovery as able - avoid nephrotoxins - hold diuretics, EMILIANO/ARB for now s/p perm cath--await outpatient hd arrangement # HTN: BP stable currently, per primary team due to HTN, Avoid ARB for now given hyperkalemia, HARDIK. Can restart once HARDIK improves or clearly CKD progression # Altered Mentation: unknown baseline # CVA: care per primary, neurology Subjective Interval history: No acute events noted, remains drowsy in bed Objective - Exam Narrative Exam: General appearance: no distress, frail EENT: ATNC Neck: Present: neck supple Respiratory: Clear to Ascultation, Normal Exam Heart: regular Gastrointestinal: Present: normoactive bowel sounds Integumentary: no rash, cool/clammy Neurologic: asterixis/tremulous, confused Objective - Vital Signs Vital signs: Vital Signs - 12hr 10/14/21 10/15/21 10/15/21 22:00 01:29 03:05 Temperature Pulse Rate 62 70 Respiratory 18 Rate Blood Pressure 137/79 O2 Sat by Pulse 96 98 Oximetry 10/15/21 10/15/21 10/15/21 03:07 03:08 08:11 Temperature 99.1 F 99.0 F Pulse Rate Respiratory 19 Rate Blood Pressure 125/67 143/76 O2 Sat by Pulse Oximetry 10/15/21 08:19 Temperature Pulse Rate 68 Respiratory Rate Blood Pressure O2 Sat by Pulse 98 Oximetry - Lab 10/14/21 04:40 10/14/21 04:40 Most recent lab results ABG pH 7.425 pH Units (7.350-7.450) 10/09/21 13:45 ABG pCO2 35.1 mm Hg 10/09/21 13:45 ABG pO2 75.9 mm Hg (80.0-90.0) L 10/09/21 13:45 ABG HCO3 22.5 mmol/L (20.0-26.0) 10/09/21 13:45 ABG O2 Saturation 96.4 % (95.0-99.0) 10/09/21 13:45 Calcium 8.7 mg/dL (8.4-10.2) 10/14/21 04:40 Urine Creatinine 234.3 mg/dL (0.1-20.0) H 10/06/21 14:04 Urine Total Protein 28 mg/dL (5-11.8) H 10/06/21 14:04 Medications & Allergies - Medications Allergies/Adverse Reactions: Allergies No Known Allergies Allergy (Verified 05/09/21 13:32) Home Medications: Home Medications Medication Instructions Recorded Confirmed Last Taken Type Furosemide [Lasix TAB] 40 mg PO QDAY #30 tablet 05/10/21 10/08/21 Unknown Rx carvediloL [Coreg] 6.25 mg PO BID #60 tablet 05/11/21 10/08/21 Unknown Rx NIFEdipine [Nifedipine ER] 60 mg PO DAILY #30 tab 05/13/21 10/08/21 Unknown Rx Valsartan [Diovan] 160 mg PO QDAY #30 tablet 05/13/21 10/08/21 Unknown Rx Active Medications: Generic Name Dose Route Start Last Admin Trade Name Freq PRN Reason Stop Dose Admin Acetaminophen 650 mg 10/06/21 01:42 Acetaminophen 325 Mg Tab PO Q4H PRN Pain MILD(1-3)/Fever >100.5/MARROQUIN Aspirin 81 mg 10/08/21 10:00 10/14/21 14:03 Aspirin 81 Mg Tab Chew PO 81 mg QDAY FREDI Administration Atorvastatin Calcium 40 mg 10/06/21 22:00 10/14/21 21:27 Atorvastatin 40 Mg Tab PO 40 mg QHS FREDI Administration Bisacodyl 10 mg 10/06/21 01:42 Bisacodyl 10 Mg Rect Supp AR QDAY PRN Constipation Carvedilol 6.25 mg 10/07/21 10:00 10/14/21 21:27 Carvedilol 6.25 Mg Tab PO 6.25 mg BID FREDI Administration Dextrose 50 ml 10/06/21 01:42 Dextrose 50% In Water (25gm) 50 Ml Syringe IV Q30MIN PRN Hypoglycemia Protocol Famotidine 20 mg 10/07/21 10:00 10/14/21 14:02 Famotidine 20 Mg Tab PO 20 mg DAILY FREDI Administration Heparin Sodium (Porcine) 5,000 unit 10/06/21 14:00 10/15/21 05:06 Heparin 5,000 Unit/1 Ml Vial SUB-Q 5,000 unit Q8HR FREDI Administration Hydralazine HCl 10 mg 10/06/21 18:38 10/08/21 00:41 Hydralazine 20 Mg/1 Ml Inj IV 10 mg Q4HR PRN Administration Hypertension Magnesium Hydroxide 30 ml 10/06/21 01:42 Magnesium Hydroxide (Mom) Oral Liqd Udc PO Q4H PRN Constipation Metoclopramide HCl 2.5 mg 10/06/21 01:59 Metoclopramide 10 Mg/10 Ml Oral Liqd PO Q6H PRN Nausea And Vomiting Nifedipine 90 mg 10/09/21 10:00 10/14/21 14:03 Nifedipine Xl 90 Mg Tab PO 90 mg QDAY FREDI Administration Ondansetron HCl 4 mg 10/06/21 01:42 Ondansetron 4 Mg/2 Ml Inj IV Q8H PRN Nausea And Vomiting Promethazine HCl 25 mg 10/06/21 01:42 Promethazine 25 Mg Rect Supp AR Q6H PRN Nausea And Vomiting Sodium Chloride 10 ml 10/06/21 10:00 10/14/21 21:28 Sodium Chloride 0.9% 10 Ml Flush Syringe IV 10 ml BID FREDI Administration Sodium Chloride 10 ml 10/06/21 01:42 Sodium Chloride 0.9% 10 Ml Flush Syringe IV PRN PRN LINE FLUSH
[2021-10-15] MEDS: carvediloL 6.25 MG TAB PO SCH ×2 (09:43→21:32)
[2021-10-15] MEDS: FAMOTIDINE 20 MG TAB PO SCH (09:43)
[2021-10-15] MEDS: NIFEdipine XL 90 MG TAB PO SCH (09:43)
[2021-10-15] MEDS: ASPIRIN 81 MG TAB CHEW PO SCH (09:43)
--- NOTE | 2021-10-15 11:39 | Progress Note ---
Assessment and Plan Assessment and plan: Patient had permacath placement on 10/14/2021 Daily hospital course: 10/06: Remains altered but stable on 2L NC, VSS. Still hyperkalemic this am, HD in progress at the bedside. Repeat BMP a hour after HD. CT head/Brain noted. Continue CVA workup, MRI brain, US carotid, and 2D echo pending. Neurology consulted. Patient is hypoglycemic this am, s/p IV insulin for hyperkalemia, con tinue BG check and hypoglycemic protocol. Will order diet if patient pass bedside swallow. PT/OT/Speech consulted. Left big toe ulcer noted. Per patient's daughter, patient is following with Vascular Surgery outpatient, revascularization was performed in the [facility] in the past and they were talking of possibly amputating that left toe. No evidence of any infectious process at this time and patient is currently hemodynamicaly stable. Will get wound care for wound management. Follow up with Vascular surgery outpatient for further management. 10/07: Increased confusion and agitation required wrist restraints overnight for safety. Patient is still confused this am, but calm and cooperative. MRI brain pending. Patient tolerated HD yesterday. Hypertensive this am, resumed home meds and continue PRN antihypertensives. Continue HD per Nephro. Patient is stable for transfer to Telemetry. 10/09/2021; patient is slightly agitated requiring restraints Awaiting return to SNF when medically stable Nephrology initiated hemodialysis, HD as needed If renal decides that patient needs long-term hemodialysis Case management will assist with outpatient HD chair scheduling 10/11/2021; patient is receiving hemodialysis Once nephrology confirms long-term HD, check with case management for outpatient HD placement Patient continues to be confused requiring restraints 10/12/2021; patient is more alert and awake responding appropriately Continue current management, if he continues to be manageable, will try to DC restraints 10/13/2021; today patient is more alert and awake,, CM assisting with outpatient HD placement Hemodialysis per schedule MWF, possible discharge in 1 to 2 days if stable 10/14/2021; patient had permacath followed by hemodialysis today tolerated well, Case management assisting with outpatient HD placement 10/15/2021; patient is comfortable no new complaints Awaiting placement/return to [facility] facility MRI brain show extensive chronic and age-related changes Punctate focus of increased diffusion-weighted signal in the left thalamic area This may be an evidence of recent or acute left thalamic infarction Continue current management PT evaluated the patient and recommended subacute rehab or [facility] for transition to LTAC DC planning per case management Assessment and Plan #Acute Metabolic Encephalopathy Multifactorial, treat the underlying cause Supportive care #Acute CVA: Left thalamic infarction MRI punctate focus of increased diffusion weighted signal in the left thalamic area Evidence of recent or acute left thalamic infarction - Presented with alerted mental status -Extensive neuro work-up reviewed - ASA and Statin initiated - Continue Neuro check per protocol -Continue PT/OT/Speech therapy - Neurology evaluated once on admission Awaiting placement/return to [facility]/awaiting authorization Acute on Chronic Kidney Disease; transition to end-stage renal disease Nephrology evaluated, initiated hemodialysis on 10/06/21 HD per schedule, MWF, outpatient HD placement in process per #Severe Hyperkalemia- resolved -Initial potassium was 7.1, managed appropriately Currently hemodialysis per schedule #Hypertension; moderate control Continue current antihypertensives As needed hydralazine #Big Toe Ulcer, Left/wound dressing. Elevate the limb Supportive care - Left big toe ulcer noted - Per patient's daughter, patient is following with Vascular Surgery outpatient, revascularization was performed in the [facility] in the past and they were talking of possibly amputating that left toe. - No evidence of any infectious process at this time and patient is currently hemodynamicaly stable - Will get wound care for wound management - Follow up with Vascular Surgery outpatient for further management. #Hypoglycemia-resolved Closely monitor blood sugars Adjust management as needed Closely monitor blood sugars Hypoglycemia resolved #GI/DVT Prophylaxis - PPI- Pepcid - Heparin SubQ - SCDs to bilateral lower extremities while in bed #Advance Care Planning - Disease education data, care plan, diagnoses, and prognosis were discussed with patient's daughter. Patient is a FULL code. Patient's daughter acknowledged understanding and agreement with current care plan. Closely monitor the patient and adjust the management as needed Plan of care reviewed with the patient and his nurse Discharge planning; PT recommended subacute rehab versus [facility] facility Patient would return to [facility] facility when medically stable Awaiting authorization Possible discharge in 1 to 2 days if stable Plan of care reviewed with the patient. His nurse s/p permacath placement followed by HD today CM processing outpatient HD placement. Closely monitor History Interval history: Seen and examined the patient at the bedside Patient's chart and medications reviewed Patient feels better awaiting HD placement and return to SNF Vital signs noted Hospitalist Physical - Constitutional Vitals: Temp Pulse Resp BP Pulse Ox 99.0 F 68 19 143/76 96 10/15/21 08:11 10/15/21 08:19 10/15/21 08:11 10/15/21 08:11 10/15/21 10:00 General appearance: Present: no acute distress, well-nourished - EENT Eyes: Present: PERRL, EOM intact - Neck Neck: Present: supple, normal ROM - Respiratory Respiratory effort: normal Respiratory: bilateral: diminished, negative: rales, rhonchi, wheezing - Cardiovascular Rhythm: regular Heart Sounds: Present: S1 & S2 - Extremities Extremities: no ischemia, No edema - Abdominal General gastrointestinal: soft, non-tender, non-distended, normal bowel sounds - Integumentary Integumentary: Present: clear, warm - Psychiatric Psychiatric: appropriate mood/affect, cooperative - Neurologic Neurologic: moves all extremities Results - Labs CBC & Chem 7: 10/14/21 04:40 10/14/21 04:40 Labs: Laboratory Last Values WBC 5.6 K/mm3 (4.5-11.0) 10/14/21 04:40 RBC 2.81 M/mm3 (3.65-5.03) L 10/14/21 04:40 Hgb 8.3 gm/dl (11.8-15.2) L 10/14/21 04:40 Hct 25.3 % (35.5-45.6) L 10/14/21 04:40 MCV 90 fl (84-94) 10/14/21 04:40 MCH 30 pg (28-32) 10/14/21 04:40 MCHC 33 % (32-34) 10/14/21 04:40 RDW 14.6 % (13.2-15.2) 10/14/21 04:40 Plt Count 186 K/mm3 (140-440) 10/14/21 04:40 Lymph % (Auto) 26.8 % (13.4-35.0) 10/14/21 04:40 [place] % (Auto) 14.4 % (0.0-7.3) H 10/14/21 04:40 Eos % (Auto) 3.3 % (0.0-4.3) 10/14/21 04:40 Baso % (Auto) 0.7 % (0.0-1.8) 10/14/21 04:40 Lymph # (Auto) 1.5 K/mm3 (1.2-5.4) 10/14/21 04:40 [place] # (Auto) 0.8 K/mm3 (0.0-0.8) 10/14/21 04:40 Eos # (Auto) 0.2 K/mm3 (0.0-0.4) 10/14/21 04:40 Baso # (Auto) 0.0 K/mm3 (0.0-0.1) 10/14/21 04:40 Seg Neutrophils % 54.8 % (40.0-70.0) 10/14/21 04:40 Seg Neutrophils # 3.1 K/mm3 (1.8-7.7) 10/14/21 04:40 PT 16.6 Sec. (12.2-14.9) H 10/05/21 21:39 INR 1.20 (0.87-1.13) H 10/05/21 21:39 ABG pH 7.425 pH Units (7.350-7.450) 10/09/21 13:45 ABG pCO2 35.1 mm Hg 10/09/21 13:45 ABG pO2 75.9 mm Hg (80.0-90.0) L 10/09/21 13:45 ABG HCO3 22.5 mmol/L (20.0-26.0) 10/09/21 13:45 ABG O2 Saturation 96.4 % (95.0-99.0) 10/09/21 13:45 ABG O2 Content 14.5 (0.0-44) 10/09/21 13:45 ABG Base Excess -1.5 mmol/L (-2.0-3.0) 10/09/21 13:45 ABG Hemoglobin 10.8 gm/dl (14.0-18.0) L 10/09/21 13:45 ABG Carboxyhemoglobin 1.2 % (0.0-5.0) 10/09/21 13:45 ABG Methemoglobin 0.5 % (0.0-1.5) 10/09/21 13:45 Oxyhemoglobin 94.8 % (95.0-99.0) L 10/09/21 13:45 FiO2 21 % 10/09/21 13:45 Sodium 144 mmol/L (137-145) 10/14/21 04:40 Potassium 3.5 mmol/L (3.6-5.0) L 10/14/21 04:40 Chloride 103.7 mmol/L (98-107) 10/14/21 04:40 Carbon Dioxide 25 mmol/L (22-30) 10/14/21 04:40 Anion Gap 19 mmol/L 10/14/21 04:40 BUN 47 mg/dL (9-20) H 10/14/21 04:40 Creatinine 5.0 mg/dL (0.8-1.3) H 10/14/21 04:40 Estimated GFR 14 ml/min 10/14/21 04:40 BUN/Creatinine Ratio 9 % 10/14/21 04:40 Glucose 99 mg/dL (75-100) 10/14/21 04:40 POC Glucose 88 mg/dL (70-105) 10/15/21 05:44 Calcium 8.7 mg/dL (8.4-10.2) 10/14/21 04:40 Total Bilirubin 0.50 mg/dL (0.1-1.2) 10/05/21 22:41 AST 11 units/L (5-40) 10/05/21 22:41 ALT < 5 units/L (7-56) L 10/05/21 22:41 Alkaline Phosphatase 64 units/L (35-129) 10/05/21 22:41 Ammonia 14.0 umol/L (25-60) L 10/05/21 22:41 Serum Total Protein 6.9 g/dL (6.1-8.1) 10/07/21 05:14 Total Protein 8.3 g/dL (6.3-8.2) H 10/05/21 22:41 Albumin 3.7 g/dL (3.8-4.8) L 10/07/21 05:14 Albumin/Globulin Ratio 1.4 % 10/05/21 22:41 Xzjdy-2-Xyphxvipl 0.4 g/dL (0.2-0.3) H 10/07/21 05:14 Clqba-6-Bmvqdfumt 1.0 g/dL (0.5-0.9) H 10/07/21 05:14 Beta Globulins 0.4 g/dL (0.2-0.5) 10/07/21 05:14 Gamma Globulins 1.1 g/dL (0.8-1.7) 10/07/21 05:14 Abnorm Protein Band 1 see below 10/07/21 05:14 PEP Interpretation see below H 10/07/21 05:14 Triglycerides 382 mg/dL (2-149) H 10/06/21 04:21 Cholesterol 273 mg/dL (50-199) H 10/06/21 04:21 LDL Cholesterol Direct 151 mg/dL (50-130) H 10/06/21 04:21 HDL Cholesterol 27 mg/dL (40-59) L 10/06/21 04:21 Cholesterol/HDL Ratio 10.11 % 10/06/21 04:21 PTH Intact 333.5 pg/mL (15-65) H 10/07/21 05:14 Urine Color Yellow (Yellow) 10/06/21 Unknown Urine Turbidity Clear (Clear) 10/06/21 Unknown Urine pH 5.0 (5.0-7.0) 10/06/21 Unknown Ur Specific [place] 1.015 (1.003-1.030) 10/06/21 Unknown Urine Protein <15 mg/dl mg/dL (Negative) 10/06/21 Unknown Urine Glucose (UA) Neg mg/dL (Negative) 10/06/21 Unknown Urine Ketones Neg mg/dL (Negative) 10/06/21 Unknown Urine Blood Sm (Negative) 10/06/21 Unknown Urine Nitrite Neg (Negative) 10/06/21 Unknown Urine Bilirubin Neg (Negative) 10/06/21 Unknown Urine Urobilinogen < 2.0 mg/dL (<2.0) 10/06/21 Unknown Ur Leukocyte Esterase Neg (Negative) 10/06/21 Unknown Urine WBC (Auto) 2.0 /HPF (0.0-6.0) 10/06/21 Unknown Urine RBC (Auto) 4.0 /HPF (0.0-6.0) 10/06/21 Unknown U Epithel Cells (Auto) 3.0 /HPF (0-13.0) 10/06/21 Unknown Urine Bacteria (Auto) 1+ /HPF (Negative) 10/06/21 Unknown Hyaline Casts 14 /LPF 10/06/21 Unknown Urine Mucus Few /HPF 10/06/21 Unknown Urine Yeast (Budding) 2+ /HPF 10/06/21 Unknown Urine Creatinine 234.3 mg/dL (0.1-20.0) H 10/06/21 14:04 Protein/Creatinin Ratio 0.12 10/06/21 14:04 Urine Total Protein 28 mg/dL (5-11.8) H 10/06/21 14:04 Salicylates < 0.3 mg/dL (2.8-20.0) L 10/05/21 22:41 Urine Opiates Screen Presumptive negative 10/06/21 Unknown Urine Methadone Screen Presumptive negative 10/06/21 Unknown Ur Barbiturates Screen Presumptive negative 10/06/21 Unknown Ur Phencyclidine Scrn Presumptive negative 10/06/21 Unknown Ur Amphetamines Screen Presumptive negative 10/06/21 Unknown U Benzodiazepines Scrn Presumptive negative 10/06/21 Unknown Urine Cocaine Screen Presumptive negative 10/06/21 Unknown U Marijuana (THC) Screen Presumptive negative 10/06/21 Unknown Drugs of Abuse Note Disclamer 10/06/21 Unknown Plasma/Serum Alcohol < 0.01 % (0-0.07) 10/05/21 21:39 LILIYA Screen Negative (Negative) 10/07/21 05:14 Proteinase 3 (PR3) Ab <1.0 AI (<1.0) 10/07/21 05:14 Myeloperoxidase Ab <1.0 AI (<1.0) 10/07/21 05:14 Complement C3 117 mg/dL (82-185) 10/07/21 05:14 Complement C4 40 mg/dL (15-53) 10/07/21 05:14 Coronavirus (PCR) Negative (Negative) 10/12/21 14:10 Hepatitis A IgM Ab Non-reactive (NonReactive) 10/06/21 09:12 Hep Bs Antigen Non-reactive (Negative) 10/06/21 09:12 Hep B Core IgM Ab Non-reactive (NonReactive) 10/06/21 09:12 Hepatitis C Antibody Non-reactive (NonReactive) 10/06/21 09:12 Paez/IV: Voiding Method Condom Catheter Active Medications - Current Medications Current Medications: Generic Name Dose Route Start Last Admin Trade Name Freq PRN Reason Stop Dose Admin Acetaminophen 650 mg 10/06/21 01:42 Acetaminophen 325 Mg Tab PO Q4H PRN Pain MILD(1-3)/Fever >100.5/MARROQUIN Aspirin 81 mg 10/08/21 10:00 10/15/21 09:43 Aspirin 81 Mg Tab Chew PO 81 mg QDAY FREDI Administration Atorvastatin Calcium 40 mg 10/06/21 22:00 10/14/21 21:27 Atorvastatin 40 Mg Tab PO 40 mg QHS FREDI Administration Bisacodyl 10 mg 10/06/21 01:42 Bisacodyl 10 Mg Rect Supp [place] QDAY PRN Constipation Carvedilol 6.25 mg 10/07/21 10:00 10/15/21 09:43 Carvedilol 6.25 Mg Tab PO 6.25 mg BID FREDI Administration Dextrose 50 ml 10/06/21 01:42 Dextrose 50% In Water (25gm) 50 Ml Syringe IV Q30MIN PRN Hypoglycemia Protocol Famotidine 20 mg 10/07/21 10:00 10/15/21 09:43 Famotidine 20 Mg Tab PO 20 mg DAILY FREDI Administration Heparin Sodium (Porcine) 5,000 unit 10/06/21 14:00 10/15/21 05:06 Heparin 5,000 Unit/1 Ml Vial SUB-Q 5,000 unit Q8HR FREDI Administration Hydralazine HCl 10 mg 10/06/21 18:38 10/08/21 00:41 Hydralazine 20 Mg/1 Ml Inj IV 10 mg Q4HR PRN Administration Hypertension Magnesium Hydroxide 30 ml 10/06/21 01:42 Magnesium Hydroxide (Mom) Oral Liqd Udc PO Q4H PRN Constipation Metoclopramide HCl 2.5 mg 10/06/21 01:59 Metoclopramide 10 Mg/10 Ml Oral Liqd PO Q6H PRN Nausea And Vomiting Nifedipine 90 mg 10/09/21 10:00 10/15/21 09:43 Nifedipine Xl 90 Mg Tab PO 90 mg QDAY FREDI Administration Ondansetron HCl 4 mg 10/06/21 01:42 Ondansetron 4 Mg/2 Ml Inj IV Q8H PRN Nausea And Vomiting Promethazine HCl 25 mg 10/06/21 01:42 Promethazine 25 Mg Rect Supp [place] Q6H PRN Nausea And Vomiting Sodium Chloride 10 ml 10/06/21 10:00 10/15/21 09:43 Sodium Chloride 0.9% 10 Ml Flush Syringe IV 10 ml BID FREDI Administration Sodium Chloride 10 ml 10/06/21 01:42 Sodium Chloride 0.9% 10 Ml Flush Syringe IV PRN PRN LINE FLUSH Nutrition/Malnutrition Assess - Dietary Evaluation Nutrition/Malnutrition Findings: Nutrition Notes Start: 10/06/21 16:50 Freq: Status: Active Protocol: Document 10/12/21 18:47 NOEL (Rec: 10/12/21 19:17 NOEL [id number]) Nutrition Notes Need for Assessment generated from: Low BMI Initial or Follow up Reassessment Current Diagnosis Acute Kidney Injury, Hypertension,Stroke Other Pertinent Diagnosis AMS, HARDIK+HD, Leukocytosis. Current Diet Pureed Diet (since D 10/06), D Suppl (from B 10/13). Labs/Tests 10/12: BUN 52, Crea 4.9. Pertinent Medications 10/12: Nutritionally unremarkable. Height 6 ft 2 in Weight 56 kg [place] Body Weight (kg) 86.36 BMI 15.8 Weight change and time frame Anthropometric data from [facility] visit 05/16/21: Wt 63.4 Kg, BMI 17.9 Kg/m2. Discrepancy of 18.843 Kg body weight loss in 6 days reported . Weight Status Underweight Subjective/Other Information RD consult for Low BMI assessment. Pt's PO intake of meals has been Negligible (0-25%), according to ADL notes. I will prescribe Dietary Supplements to compensate for poor or insufficient PO intake of meals. Pt is on Room Air, O2 saturation @ 98%, according to Physical Assessment History notes. Anthropometric data from [facility] visit 05/16/21: Wt 63.4 Kg, BMI 17.9 Kg/m2. Pt's Low BMI seems to correspond to a natural body composition, and related to a gradual loss of body weight along with chronic malnutrition, according to anthropometric information referred from previous visits. Pt needs total assistance with ADL activities, not a candidate for Nutrition Education. Percent of energy/protein needs met: Prescribed Pureed Diet provides for energy/protein needs (1,804 Kcal/77 g) during LOS; additionally, Dietary Supplements will compensate for possible poor or insufficient PO intake of meals with 1,275 Kcal and 57 g of protein. Burn Absent Trauma Absent GI Symptoms None Food Allergy No Skin Integrity/Comment L-Big Toe area of concern. Current % PO Negligible Minimum of two criteria Yes Energy Intake (severe) < or equal to 50% Estimated Energy Requirement > or equal to 5 days Interpretation of Weight Loss (severe) >7.5% in 3 months Fluid Accumulation N/A Reduced Software Technical Lead Strength N/A (non-severe) Protein-Calorie Malnutrition Severe #1 Nutrition Diagnosis Malnutrition Etiology Ongoing and concomitant chronic metabolic conditions. As Evidenced by Signs and Symptoms Poor appetite < or equal to 50 % Estimated Energy Requirement > or equal to 5 days, Loss of body weight >7.5% in 3 months . Is patient on ventilator? No Is Patient Ambulatory and/or Out of Bed No REE-([facility]-confined to bed) 1667.844 Kcal/Kg value to use for calculation 42 Approximate Energy Requirements Using 2352 kcal/Kg Calculation Used for Recommendations Kcal/kg Additional Notes Protein: >1.2 g/Kg IBW; >103 g /day. Fluids: 1 ml/Kcal, or as per MD. Nutrition Intervention Change Diet Order: Continue Pureed Diet. Add Supplement/Snack (indicate name/kcal Start 8 fl oz Nepro w/ /protein ) CARBSTEADY; TID. Provides kCal: 1,275 Provides Protein (gm) 57 Goal #1 Compensate, through dietary supplementation, for possible poor or insufficient PO intake of meals during LOS. Goal #2 Adjust the dietary intervention to better serve Pt's needs and clinical conditions during LOS. Follow-Up By: 10/19/21 Additional Comments Continue monitoring food tolerance, %PO intake of meals and ONS, and BM.
--- NOTE | 2021-10-15 12:46 | Progress Note ---
Assessment and Plan Acute toxic metabolic encephalopathy Acute kidney injury Severe hyperkalemia Hypertension CMOP Mild leukocytosis - no new issues today, continue care as below; - prn supplemental oxygen to keep O2 sats > 90% - prn bronchodilators (MAY) with pulm hygiene per RT - continue to avoid nephrotoxins, renally dose all medications - continue mobility protocols to prevent pressure ulcers - PT/OT as tolerated - Wound care per RN/WCT - continue accuchecks with glycemic control per SSI for target blood glucose < 180 mg/dL - tobacco abstinence strongly counseled at the bedside - home oxygen evaluation at discharge - prn analgesia per pain score - GI & VTE prophylaxis - Flu & pneumovax per protocol - Pulmonary out patient follow up for PFTs and optimization of respiratory status - continue other care per attending / other consultants ... re-evaluate in am & prn Subjective Date of service: 10/15/21 Principal diagnosis: AMS; HARDIK; Severe hyperkalemia; Hypertension; CMOP; Mild leukocytosis Interval history: Patient is seen today for: Acute toxic metabolic encephalopathy; Acute kidney injury; Severe hyperkalemia; Hypertension; CMOP; Mild leukocytosis Seen and examined at bedside; 24hour events reviewed; nursing and respiratory care staff consulted; no adverse overnight events reported to me; resting in bed; comfortable; awaiting transfer back to [place]; no N/V/F/C Objective Vital Signs - 12hr 10/15/21 10/15/21 10/15/21 01:29 03:05 03:07 Temperature Pulse Rate 70 Respiratory 18 Rate Blood Pressure 137/79 125/67 Blood Pressure [Right] O2 Sat by Pulse 96 98 Oximetry 10/15/21 10/15/21 10/15/21 03:08 08:11 08:19 Temperature 99.1 F 99.0 F Pulse Rate 68 Respiratory 19 Rate Blood Pressure 143/76 Blood Pressure [Right] O2 Sat by Pulse 98 Oximetry 10/15/21 10/15/21 10:00 12:39 Temperature 98.9 F Pulse Rate 56 L Respiratory 18 Rate Blood Pressure Blood Pressure 111/68 [Right] O2 Sat by Pulse 96 97 Oximetry Constitutional: no acute distress, alert, other (dementia) Eyes: non-icteric ENT: oropharynx moist Neck: supple, no lymphadenopathy Effort: normal Ascultation: Bilateral: diminished breath sounds Cardiovascular: regular rate and rhythm Gastrointestinal: normoactive bowel sounds, soft, non-tender Integumentary: cellulitis Extremities: other (Stasis dermatitis.) Neurologic: pupils equal and round, unable to assess Psychiatric: other (Confused. Not oriented.) CBC and BMP: 10/14/21 04:40 10/14/21 04:40 ABG, PT/INR, D-dimer: ABG ABG pH 7.425 pH Units (7.350-7.450) 10/09/21 13:45 ABG pCO2 35.1 mm Hg 10/09/21 13:45 ABG pO2 75.9 mm Hg (80.0-90.0) L 10/09/21 13:45 ABG O2 Saturation 96.4 % (95.0-99.0) 10/09/21 13:45 PT/INR, D-dimer PT 16.6 Sec. (12.2-14.9) H 10/05/21 21:39 INR 1.20 (0.87-1.13) H 10/05/21 21:39 Abnormal lab findings: Abnormal Labs 10/05/21 10/05/21 10/05/21 21:39 21:39 22:41 WBC 11.3 H RBC Hgb Hct RDW 15.3 H Plt Count Lymph % (Auto) 7.6 L [place] % (Auto) 7.7 H Lymph # (Auto) 0.9 L [place] # (Auto) 0.9 H Seg Neutrophils % 83.7 H Seg Neutrophils # 9.5 H PT 16.6 H INR 1.20 H ABG pO2 ABG Hemoglobin Oxyhemoglobin Sodium Potassium Chloride Carbon Dioxide BUN Creatinine Glucose POC Glucose Calcium ALT Ammonia Total Protein Albumin Vixqz-1-Ciybsevir Fifzk-4-Iimoacovw PEP Interpretation Triglycerides Cholesterol LDL Cholesterol Direct HDL Cholesterol PTH Intact Urine Creatinine Urine Total Protein Salicylates < 0.3 L 10/05/21 10/05/21 10/06/21 22:41 22:41 04:21 WBC RBC Hgb Hct RDW Plt Count Lymph % (Auto) [place] % (Auto) Lymph # (Auto) [place] # (Auto) Seg Neutrophils % Seg Neutrophils # PT INR ABG pO2 ABG Hemoglobin Oxyhemoglobin Sodium Potassium 7.7 H* 6.1 H* D Chloride Carbon Dioxide 19 L BUN 216 H 224 H Creatinine 18.1 H 19.7 H Glucose 117 H 64 L POC Glucose Calcium 11.0 H ALT < 5 L Ammonia 14.0 L Total Protein 8.3 H Albumin Hxhxw-6-Qpzcoabzq Hovvz-3-Mijqnotju PEP Interpretation Triglycerides Cholesterol LDL Cholesterol Direct HDL Cholesterol PTH Intact Urine Creatinine Urine Total Protein Salicylates 10/06/21 10/06/21 10/06/21 04:21 14:04 17:30 WBC RBC Hgb Hct RDW Plt Count Lymph % (Auto) [place] % (Auto) Lymph # (Auto) [place] # (Auto) Seg Neutrophils % Seg Neutrophils # PT INR ABG pO2 ABG Hemoglobin Oxyhemoglobin Sodium Potassium Chloride Carbon Dioxide BUN 131 H Creatinine 12.7 H Glucose 157 H POC Glucose Calcium ALT Ammonia Total Protein Albumin Doicw-2-Iufgwdbya Qmedw-7-Zwwlkiajc PEP Interpretation Triglycerides 382 H Cholesterol 273 H LDL Cholesterol Direct 151 H HDL Cholesterol 27 L PTH Intact Urine Creatinine 234.3 H Urine Total Protein 28 H Salicylates 10/07/21 10/07/21 10/07/21 05:14 05:14 05:14 WBC RBC 3.37 L Hgb 10.0 L Hct 30.1 L D RDW Plt Count 117 L Lymph % (Auto) 10.4 L [place] % (Auto) 7.9 H Lymph # (Auto) 0.7 L [place] # (Auto) Seg Neutrophils % 80.2 H Seg Neutrophils # PT INR ABG pO2 ABG Hemoglobin Oxyhemoglobin Sodium Potassium Chloride Carbon Dioxide BUN 123 H Creatinine 10.9 H Glucose 119 H POC Glucose Calcium ALT Ammonia Total Protein Albumin Kiljn-2-Zennusxnz Ptkbq-9-Grjbotqym PEP Interpretation Triglycerides Cholesterol LDL Cholesterol Direct HDL Cholesterol PTH Intact 333.5 H Urine Creatinine Urine Total Protein Salicylates 10/07/21 10/07/21 10/08/21 05:14 21:43 04:56 WBC RBC 3.59 L Hgb 10.4 L Hct 32.2 L RDW Plt Count 116 L Lymph % (Auto) [place] % (Auto) Lymph # (Auto) [place] # (Auto) Seg Neutrophils % Seg Neutrophils # PT INR ABG pO2 ABG Hemoglobin Oxyhemoglobin Sodium Potassium Chloride Carbon Dioxide BUN Creatinine Glucose POC Glucose 144 H Calcium ALT Ammonia Total Protein Albumin 3.7 L Uhobc-0-Dfulxxsky 0.4 H Zyxke-6-Qanjlqwvh 1.0 H PEP Interpretation see below H Triglycerides Cholesterol LDL Cholesterol Direct HDL Cholesterol PTH Intact Urine Creatinine Urine Total Protein Salicylates 10/08/21 10/08/21 10/08/21 04:56 11:22 15:36 WBC RBC Hgb Hct RDW Plt Count Lymph % (Auto) [place] % (Auto) Lymph # (Auto) [place] # (Auto) Seg Neutrophils % Seg Neutrophils # PT INR ABG pO2 ABG Hemoglobin Oxyhemoglobin Sodium 147 H Potassium Chloride 109.8 H Carbon Dioxide 20 L BUN 123 H Creatinine 9.7 H Glucose 110 H POC Glucose 145 H 139 H Calcium ALT Ammonia Total Protein Albumin Bpylw-8-Zvusihlfm Qkqpr-1-Xxjeetlxg PEP Interpretation Triglycerides Cholesterol LDL Cholesterol Direct HDL Cholesterol PTH Intact Urine Creatinine Urine Total Protein Salicylates 10/09/21 10/09/21 10/09/21 12:36 13:45 18:01 WBC RBC Hgb Hct RDW Plt Count Lymph % (Auto) [place] % (Auto) Lymph # (Auto) [place] # (Auto) Seg Neutrophils % Seg Neutrophils # PT INR ABG pO2 75.9 L ABG Hemoglobin 10.8 L Oxyhemoglobin 94.8 L Sodium Potassium Chloride Carbon Dioxide BUN Creatinine Glucose POC Glucose 121 H 143 H Calcium ALT Ammonia Total Protein Albumin Spmhl-5-Dplhqvhdx Umkri-8-Khuacktzs PEP Interpretation Triglycerides Cholesterol LDL Cholesterol Direct HDL Cholesterol PTH Intact Urine Creatinine Urine Total Protein Salicylates 10/10/21 10/10/21 10/11/21 00:16 05:09 05:13 WBC RBC Hgb Hct RDW Plt Count Lymph % (Auto) [place] % (Auto) Lymph # (Auto) [place] # (Auto) Seg Neutrophils % Seg Neutrophils # PT INR ABG pO2 ABG Hemoglobin Oxyhemoglobin Sodium 147 H Potassium Chloride 109.0 H Carbon Dioxide BUN 103 H 45 H Creatinine 6.8 H 4.6 H Glucose 108 H POC Glucose 108 H Calcium ALT Ammonia Total Protein Albumin Ndrkg-4-Fxsgutgzb Yoxev-3-Njcwkpczx PEP Interpretation Triglycerides Cholesterol LDL Cholesterol Direct HDL Cholesterol PTH Intact Urine Creatinine Urine Total Protein Salicylates 10/12/21 10/12/21 10/13/21 04:50 16:31 00:01 WBC RBC Hgb Hct RDW Plt Count Lymph % (Auto) [place] % (Auto) Lymph # (Auto) [place] # (Auto) Seg Neutrophils % Seg Neutrophils # PT INR ABG pO2 ABG Hemoglobin Oxyhemoglobin Sodium Potassium Chloride Carbon Dioxide BUN 52 H Creatinine 4.9 H Glucose POC Glucose 117 H 111 H Calcium ALT Ammonia Total Protein Albumin Ofavp-5-Shaudqgim Zcbcw-7-Yqokdgloy PEP Interpretation Triglycerides Cholesterol LDL Cholesterol Direct HDL Cholesterol PTH Intact Urine Creatinine Urine Total Protein Salicylates 10/13/21 10/13/21 10/13/21 12:30 18:27 23:30 WBC RBC Hgb Hct RDW Plt Count Lymph % (Auto) [place] % (Auto) Lymph # (Auto) [place] # (Auto) Seg Neutrophils % Seg Neutrophils # PT INR ABG pO2 ABG Hemoglobin Oxyhemoglobin Sodium Potassium Chloride Carbon Dioxide BUN Creatinine Glucose POC Glucose 116 H 133 H 109 H Calcium ALT Ammonia Total Protein Albumin Wjxrf-8-Jpryfmbsw Pipxb-0-Amrtxqrjz PEP Interpretation Triglycerides Cholesterol LDL Cholesterol Direct HDL Cholesterol PTH Intact Urine Creatinine Urine Total Protein Salicylates 10/14/21 10/14/21 10/14/21 04:40 04:40 17:31 WBC RBC 2.81 L Hgb 8.3 L Hct 25.3 L RDW Plt Count Lymph % (Auto) [place] % (Auto) 14.4 H Lymph # (Auto) [place] # (Auto) Seg Neutrophils % Seg Neutrophils # PT INR ABG pO2 ABG Hemoglobin Oxyhemoglobin Sodium Potassium 3.5 L Chloride Carbon Dioxide BUN 47 H Creatinine 5.0 H Glucose POC Glucose 106 H Calcium ALT Ammonia Total Protein Albumin Vbjgj-2-Bhsfzqmkq Xsxsj-9-Nxxqxrkfb PEP Interpretation Triglycerides Cholesterol LDL Cholesterol Direct HDL Cholesterol PTH Intact Urine Creatinine Urine Total Protein Salicylates Allied health notes reviewed: nursing
[2021-10-16] MEDS: HEPARIN 5,000 UNIT/1 ML VIAL SUB-Q SCH ×3 (05:32→21:14)
[2021-10-16] MEDS: carvediloL 6.25 MG TAB PO SCH ×2 (09:05→21:14)
[2021-10-16] MEDS: ASPIRIN 81 MG TAB CHEW PO SCH (09:06)
[2021-10-16] MEDS: FAMOTIDINE 20 MG TAB PO SCH (09:06)
[2021-10-16] MEDS: NIFEdipine XL 90 MG TAB PO SCH (09:06)
--- NOTE | 2021-10-16 09:18 | Progress Note ---
Assessment and Plan Assessment and plan: Patient had permacath placement on 10/14/2021 Daily hospital course: 10/06: Remains altered but stable on 2L NC, VSS. Still hyperkalemic this am, HD in progress at the bedside. Repeat BMP a hour after HD. CT head/Brain noted. Continue CVA workup, MRI brain, US carotid, and 2D echo pending. Neurology consulted. Patient is hypoglycemic this am, s/p IV insulin for hyperkalemia, con tinue BG check and hypoglycemic protocol. Will order diet if patient pass bedside swallow. PT/OT/Speech consulted. Left big toe ulcer noted. Per patient's daughter, patient is following with Vascular Surgery outpatient, revascularization was performed in the [facility] in the past and they were talking of possibly amputating that left toe. No evidence of any infectious process at this time and patient is currently hemodynamicaly stable. Will get wound care for wound management. Follow up with Vascular surgery outpatient for further management. 10/07: Increased confusion and agitation required wrist restraints overnight for safety. Patient is still confused this am, but calm and cooperative. MRI brain pending. Patient tolerated HD yesterday. Hypertensive this am, resumed home meds and continue PRN antihypertensives. Continue HD per Nephro. Patient is stable for transfer to Telemetry. 10/09/2021; patient is slightly agitated requiring restraints Awaiting return to SNF when medically stable Nephrology initiated hemodialysis, HD as needed If renal decides that patient needs long-term hemodialysis Case management will assist with outpatient HD chair scheduling 10/11/2021; patient is receiving hemodialysis Once nephrology confirms long-term HD, check with case management for outpatient HD placement Patient continues to be confused requiring restraints 10/12/2021; patient is more alert and awake responding appropriately Continue current management, if he continues to be manageable, will try to DC restraints 10/13/2021; today patient is more alert and awake,, CM assisting with outpatient HD placement Hemodialysis per schedule MWF, possible discharge in 1 to 2 days if stable 10/14/2021; patient had permacath followed by hemodialysis today tolerated well, Case management assisting with outpatient HD placement 10/15/2021; patient is comfortable no new complaints Awaiting placement/return to [facility] 10/16/2021; awaiting to go back to [facility] Awaiting authorization MRI brain show extensive chronic and age-related changes Punctate focus of increased diffusion-weighted signal in the left thalamic area This may be an evidence of recent or acute left thalamic infarction Continue current management PT evaluated the patient and recommended subacute rehab or [facility] for transition to LTAC DC planning per case management Assessment and Plan #Acute Metabolic Encephalopathy Multifactorial, treat the underlying cause Supportive care #Acute CVA: Left thalamic infarction MRI punctate focus of increased diffusion weighted signal in the left thalamic area Evidence of recent or acute left thalamic infarction - Presented with alerted mental status -Extensive neuro work-up reviewed - ASA and Statin initiated - Continue Neuro check per protocol -Continue PT/OT/Speech therapy - Neurology evaluated once on admission Awaiting placement/return to [facility]/awaiting authorization Acute on Chronic Kidney Disease; transition to end-stage renal disease Nephrology evaluated, initiated hemodialysis on 10/06/21 HD per schedule, MWF, outpatient HD placement in process per #Severe Hyperkalemia- resolved -Initial potassium was 7.1, managed appropriately Currently hemodialysis per schedule #Hypertension; moderate control Continue current antihypertensives As needed hydralazine #Big Toe Ulcer, Left/wound dressing. Elevate the limb Supportive care - Left big toe ulcer noted - Per patient's daughter, patient is following with Vascular Surgery outpatient, revascularization was performed in the [facility] in the past and they were talking of possibly amputating that left toe. - No evidence of any infectious process at this time and patient is currently hemodynamicaly stable - Will get wound care for wound management - Follow up with Vascular Surgery outpatient for further management. #Hypoglycemia-resolved Closely monitor blood sugars Adjust management as needed Closely monitor blood sugars Hypoglycemia resolved #GI/DVT Prophylaxis - PPI- Pepcid - Heparin SubQ - SCDs to bilateral lower extremities while in bed #Advance Care Planning - Disease education data, care plan, diagnoses, and prognosis were discussed with patient's daughter. Patient is a FULL code. Patient's daughter acknowledged understanding and agreement with current care plan. Closely monitor the patient and adjust the management as needed Plan of care reviewed with the patient and his nurse Discharge planning; PT recommended subacute rehab versus [facility] facility Patient would return to [facility] facility when medically stable Awaiting authorization Possible discharge in 1 to 2 days if stable Plan of care reviewed with the patient. His nurse s/p permacath placement followed by HD today CM processing outpatient HD placement. Closely monitor History Interval history: Have seen and examined the patient at the bedside Patient's chart and medications reviewed Patient has no new complaints alert awake oriented x3 Patient is awaiting placement/return to [facility] facility Waiting for authorization Hospitalist Physical - Constitutional Vitals: Temp Pulse Resp BP Pulse Ox 97.4 F L 60 18 138/69 100 10/16/21 07:54 10/16/21 07:54 10/16/21 04:21 10/16/21 07:54 10/16/21 07:54 General appearance: Present: no acute distress, well-nourished - EENT Eyes: Present: PERRL, EOM intact - Neck Neck: Present: supple, normal ROM - Respiratory Respiratory effort: normal Respiratory: bilateral: diminished, negative: rales, rhonchi, wheezing - Cardiovascular Rhythm: regular Heart Sounds: Present: S1 & S2 - Extremities Extremities: no ischemia, No edema - Abdominal General gastrointestinal: soft, non-tender, non-distended, normal bowel sounds - Integumentary Integumentary: Present: clear, warm - Psychiatric Psychiatric: appropriate mood/affect, cooperative - Neurologic Neurologic: moves all extremities Results - Labs CBC & Chem 7: 10/14/21 04:40 10/14/21 04:40 Labs: Laboratory Last Values WBC 5.6 K/mm3 (4.5-11.0) 10/14/21 04:40 RBC 2.81 M/mm3 (3.65-5.03) L 10/14/21 04:40 Hgb 8.3 gm/dl (11.8-15.2) L 10/14/21 04:40 Hct 25.3 % (35.5-45.6) L 10/14/21 04:40 MCV 90 fl (84-94) 10/14/21 04:40 MCH 30 pg (28-32) 10/14/21 04:40 MCHC 33 % (32-34) 10/14/21 04:40 RDW 14.6 % (13.2-15.2) 10/14/21 04:40 Plt Count 186 K/mm3 (140-440) 10/14/21 04:40 Lymph % (Auto) 26.8 % (13.4-35.0) 10/14/21 04:40 [place] % (Auto) 14.4 % (0.0-7.3) H 10/14/21 04:40 Eos % (Auto) 3.3 % (0.0-4.3) 10/14/21 04:40 Baso % (Auto) 0.7 % (0.0-1.8) 10/14/21 04:40 Lymph # (Auto) 1.5 K/mm3 (1.2-5.4) 10/14/21 04:40 [place] # (Auto) 0.8 K/mm3 (0.0-0.8) 10/14/21 04:40 Eos # (Auto) 0.2 K/mm3 (0.0-0.4) 10/14/21 04:40 Baso # (Auto) 0.0 K/mm3 (0.0-0.1) 10/14/21 04:40 Seg Neutrophils % 54.8 % (40.0-70.0) 10/14/21 04:40 Seg Neutrophils # 3.1 K/mm3 (1.8-7.7) 10/14/21 04:40 PT 16.6 Sec. (12.2-14.9) H 10/05/21 21:39 INR 1.20 (0.87-1.13) H 10/05/21 21:39 ABG pH 7.425 pH Units (7.350-7.450) 10/09/21 13:45 ABG pCO2 35.1 mm Hg 10/09/21 13:45 ABG pO2 75.9 mm Hg (80.0-90.0) L 10/09/21 13:45 ABG HCO3 22.5 mmol/L (20.0-26.0) 10/09/21 13:45 ABG O2 Saturation 96.4 % (95.0-99.0) 10/09/21 13:45 ABG O2 Content 14.5 (0.0-44) 10/09/21 13:45 ABG Base Excess -1.5 mmol/L (-2.0-3.0) 10/09/21 13:45 ABG Hemoglobin 10.8 gm/dl (14.0-18.0) L 10/09/21 13:45 ABG Carboxyhemoglobin 1.2 % (0.0-5.0) 10/09/21 13:45 ABG Methemoglobin 0.5 % (0.0-1.5) 10/09/21 13:45 Oxyhemoglobin 94.8 % (95.0-99.0) L 10/09/21 13:45 FiO2 21 % 10/09/21 13:45 Sodium 144 mmol/L (137-145) 10/14/21 04:40 Potassium 3.5 mmol/L (3.6-5.0) L 10/14/21 04:40 Chloride 103.7 mmol/L (98-107) 10/14/21 04:40 Carbon Dioxide 25 mmol/L (22-30) 10/14/21 04:40 Anion Gap 19 mmol/L 10/14/21 04:40 BUN 47 mg/dL (9-20) H 10/14/21 04:40 Creatinine 5.0 mg/dL (0.8-1.3) H 10/14/21 04:40 Estimated GFR 14 ml/min 10/14/21 04:40 BUN/Creatinine Ratio 9 % 10/14/21 04:40 Glucose 99 mg/dL (75-100) 10/14/21 04:40 POC Glucose 88 mg/dL (70-105) 10/15/21 05:44 Calcium 8.7 mg/dL (8.4-10.2) 10/14/21 04:40 Total Bilirubin 0.50 mg/dL (0.1-1.2) 10/05/21 22:41 AST 11 units/L (5-40) 10/05/21 22:41 ALT < 5 units/L (7-56) L 10/05/21 22:41 Alkaline Phosphatase 64 units/L (35-129) 10/05/21 22:41 Ammonia 14.0 umol/L (25-60) L 10/05/21 22:41 Serum Total Protein 6.9 g/dL (6.1-8.1) 10/07/21 05:14 Total Protein 8.3 g/dL (6.3-8.2) H 10/05/21 22:41 Albumin 3.7 g/dL (3.8-4.8) L 10/07/21 05:14 Albumin/Globulin Ratio 1.4 % 10/05/21 22:41 Nofpu-5-Bddfzhryj 0.4 g/dL (0.2-0.3) H 10/07/21 05:14 Ucznu-9-Mccwzgedh 1.0 g/dL (0.5-0.9) H 10/07/21 05:14 Beta Globulins 0.4 g/dL (0.2-0.5) 10/07/21 05:14 Gamma Globulins 1.1 g/dL (0.8-1.7) 10/07/21 05:14 Abnorm Protein Band 1 see below 10/07/21 05:14 PEP Interpretation see below H 10/07/21 05:14 Triglycerides 382 mg/dL (2-149) H 10/06/21 04:21 Cholesterol 273 mg/dL (50-199) H 10/06/21 04:21 LDL Cholesterol Direct 151 mg/dL (50-130) H 10/06/21 04:21 HDL Cholesterol 27 mg/dL (40-59) L 10/06/21 04:21 Cholesterol/HDL Ratio 10.11 % 10/06/21 04:21 PTH Intact 333.5 pg/mL (15-65) H 10/07/21 05:14 Urine Color Yellow (Yellow) 10/06/21 Unknown Urine Turbidity Clear (Clear) 10/06/21 Unknown Urine pH 5.0 (5.0-7.0) 10/06/21 Unknown Ur Specific [place] 1.015 (1.003-1.030) 10/06/21 Unknown Urine Protein <15 mg/dl mg/dL (Negative) 10/06/21 Unknown Urine Glucose (UA) Neg mg/dL (Negative) 10/06/21 Unknown Urine Ketones Neg mg/dL (Negative) 10/06/21 Unknown Urine Blood Sm (Negative) 10/06/21 Unknown Urine Nitrite Neg (Negative) 10/06/21 Unknown Urine Bilirubin Neg (Negative) 10/06/21 Unknown Urine Urobilinogen < 2.0 mg/dL (<2.0) 10/06/21 Unknown Ur Leukocyte Esterase Neg (Negative) 10/06/21 Unknown Urine WBC (Auto) 2.0 /HPF (0.0-6.0) 10/06/21 Unknown Urine RBC (Auto) 4.0 /HPF (0.0-6.0) 10/06/21 Unknown U Epithel Cells (Auto) 3.0 /HPF (0-13.0) 10/06/21 Unknown Urine Bacteria (Auto) 1+ /HPF (Negative) 10/06/21 Unknown Hyaline Casts 14 /LPF 10/06/21 Unknown Urine Mucus Few /HPF 10/06/21 Unknown Urine Yeast (Budding) 2+ /HPF 10/06/21 Unknown Urine Creatinine 234.3 mg/dL (0.1-20.0) H 10/06/21 14:04 Protein/Creatinin Ratio 0.12 10/06/21 14:04 Urine Total Protein 28 mg/dL (5-11.8) H 10/06/21 14:04 Salicylates < 0.3 mg/dL (2.8-20.0) L 10/05/21 22:41 Urine Opiates Screen Presumptive negative 10/06/21 Unknown Urine Methadone Screen Presumptive negative 10/06/21 Unknown Ur Barbiturates Screen Presumptive negative 10/06/21 Unknown Ur Phencyclidine Scrn Presumptive negative 10/06/21 Unknown Ur Amphetamines Screen Presumptive negative 10/06/21 Unknown U Benzodiazepines Scrn Presumptive negative 10/06/21 Unknown Urine Cocaine Screen Presumptive negative 10/06/21 Unknown U Marijuana (THC) Screen Presumptive negative 10/06/21 Unknown Drugs of Abuse Note Disclamer 10/06/21 Unknown Plasma/Serum Alcohol < 0.01 % (0-0.07) 10/05/21 21:39 LILIYA Screen Negative (Negative) 10/07/21 05:14 Proteinase 3 (PR3) Ab <1.0 AI (<1.0) 10/07/21 05:14 Myeloperoxidase Ab <1.0 AI (<1.0) 10/07/21 05:14 Complement C3 117 mg/dL (82-185) 10/07/21 05:14 Complement C4 40 mg/dL (15-53) 10/07/21 05:14 Coronavirus (PCR) Negative (Negative) 10/12/21 14:10 Hepatitis A IgM Ab Non-reactive (NonReactive) 10/06/21 09:12 Hep Bs Antigen Non-reactive (Negative) 10/06/21 09:12 Hep B Core IgM Ab Non-reactive (NonReactive) 10/06/21 09:12 Hepatitis C Antibody Non-reactive (NonReactive) 10/06/21 09:12 Paez/IV: Voiding Method Condom Catheter Active Medications - Current Medications Current Medications: Generic Name Dose Route Start Last Admin Trade Name Freq PRN Reason Stop Dose Admin Acetaminophen 650 mg 10/06/21 01:42 Acetaminophen 325 Mg Tab PO Q4H PRN Pain MILD(1-3)/Fever >100.5/MARROQUIN Aspirin 81 mg 10/08/21 10:00 10/15/21 09:43 Aspirin 81 Mg Tab Chew PO 81 mg QDAY FREDI Administration Atorvastatin Calcium 40 mg 10/06/21 22:00 10/15/21 21:32 Atorvastatin 40 Mg Tab PO 40 mg QHS ON LICENSE OF [facility] Administration Bisacodyl 10 mg 10/06/21 01:42 Bisacodyl 10 Mg Rect Supp VA QDAY PRN Constipation Carvedilol 6.25 mg 10/07/21 10:00 10/15/21 21:32 Carvedilol 6.25 Mg Tab PO 6.25 mg BID FREDI Administration Dextrose 50 ml 10/06/21 01:42 Dextrose 50% In Water (25gm) 50 Ml Syringe IV Q30MIN PRN Hypoglycemia Protocol Famotidine 20 mg 10/07/21 10:00 10/15/21 09:43 Famotidine 20 Mg Tab PO 20 mg DAILY ON LICENSE OF [facility] Administration Heparin Sodium (Porcine) 5,000 unit 10/06/21 14:00 10/16/21 05:32 Heparin 5,000 Unit/1 Ml Vial SUB-Q Not Given Q8HR ON LICENSE OF [facility] Hydralazine HCl 10 mg 10/06/21 18:38 10/08/21 00:41 Hydralazine 20 Mg/1 Ml Inj IV 10 mg Q4HR PRN Administration Hypertension Magnesium Hydroxide 30 ml 10/06/21 01:42 Magnesium Hydroxide (Mom) Oral Liqd Udc PO Q4H PRN Constipation Metoclopramide HCl 2.5 mg 10/06/21 01:59 Metoclopramide 10 Mg/10 Ml Oral Liqd PO Q6H PRN Nausea And Vomiting Nifedipine 90 mg 10/09/21 10:00 10/15/21 09:43 Nifedipine Xl 90 Mg Tab PO 90 mg QDAY ON LICENSE OF [facility] Administration Ondansetron HCl 4 mg 10/06/21 01:42 Ondansetron 4 Mg/2 Ml Inj IV Q8H PRN Nausea And Vomiting Promethazine HCl 25 mg 10/06/21 01:42 Promethazine 25 Mg Rect Supp VA Q6H PRN Nausea And Vomiting Sodium Chloride 10 ml 10/06/21 10:00 10/15/21 21:33 Sodium Chloride 0.9% 10 Ml Flush Syringe IV 10 ml BID FREDI Administration Sodium Chloride 10 ml 10/06/21 01:42 Sodium Chloride 0.9% 10 Ml Flush Syringe IV PRN PRN LINE FLUSH Nutrition/Malnutrition Assess - Dietary Evaluation Nutrition/Malnutrition Findings: Nutrition Notes Start: 10/06/21 16:50 Freq: Status: Active Protocol: Document 10/12/21 18:47 NOEL (Rec: 10/12/21 19:17 NOEL [id number]) Nutrition Notes Need for Assessment generated from: Low BMI Initial or Follow up Reassessment Current Diagnosis Acute Kidney Injury, Hypertension,Stroke Other Pertinent Diagnosis AMS, HARDIK+HD, Leukocytosis. Current Diet Pureed Diet (since D 10/06), D Suppl (from B 10/13). Labs/Tests 10/12: BUN 52, Crea 4.9. Pertinent Medications 10/12: Nutritionally unremarkable. Height 6 ft 2 in Weight 56 kg [place] Body Weight (kg) 86.36 BMI 15.8 Weight change and time frame Anthropometric data from [facility] visit 05/16/21: Wt 63.4 Kg, BMI 17.9 Kg/m2. Discrepancy of 18.843 Kg body weight loss in 6 days reported . Weight Status Underweight Subjective/Other Information RD consult for Low BMI assessment. Pt's PO intake of meals has been Negligible (0-25%), according to ADL notes. I will prescribe Dietary Supplements to compensate for poor or insufficient PO intake of meals. Pt is on Room Air, O2 saturation @ 98%, according to Physical Assessment History notes. Anthropometric data from [facility] visit 05/16/21: Wt 63.4 Kg, BMI 17.9 Kg/m2. Pt's Low BMI seems to correspond to a natural body composition, and related to a gradual loss of body weight along with chronic malnutrition, according to anthropometric information referred from previous visits. Pt needs total assistance with ADL activities, not a candidate for Nutrition Education. Percent of energy/protein needs met: Prescribed Pureed Diet provides for energy/protein needs (1,804 Kcal/77 g) during LOS; additionally, Dietary Supplements will compensate for possible poor or insufficient PO intake of meals with 1,275 Kcal and 57 g of protein. Burn Absent Trauma Absent GI Symptoms None Food Allergy No Skin Integrity/Comment L-Big Toe area of concern. Current % PO Negligible Minimum of two criteria Yes Energy Intake (severe) < or equal to 50% Estimated Energy Requirement > or equal to 5 days Interpretation of Weight Loss (severe) >7.5% in 3 months Fluid Accumulation N/A Reduced Hospital [facility] Service Worker Strength N/A (non-severe) Protein-Calorie Malnutrition Severe #1 Nutrition Diagnosis Malnutrition Etiology Ongoing and concomitant chronic metabolic conditions. As Evidenced by Signs and Symptoms Poor appetite < or equal to 50 % Estimated Energy Requirement > or equal to 5 days, Loss of body weight >7.5% in 3 months . Is patient on ventilator? No Is Patient Ambulatory and/or Out of Bed No REE-([place]-confined to bed) 1667.844 Kcal/Kg value to use for calculation 42 Approximate Energy Requirements Using 2352 kcal/Kg Calculation Used for Recommendations Kcal/kg Additional Notes Protein: >1.2 g/Kg IBW; >103 g /day. Fluids: 1 ml/Kcal, or as per MD. Nutrition Intervention Change Diet Order: Continue Pureed Diet. Add Supplement/Snack (indicate name/kcal Start 8 fl oz Nepro w/ /protein ) CARBSTEADY; TID. Provides kCal: 1,275 Provides Protein (gm) 57 Goal #1 Compensate, through dietary supplementation, for possible poor or insufficient PO intake of meals during LOS. Goal #2 Adjust the dietary intervention to better serve Pt's needs and clinical conditions during LOS. Follow-Up By: 10/19/21 Additional Comments Continue monitoring food tolerance, %PO intake of meals and ONS, and BM.
--- NOTE | 2021-10-16 11:45 | Progress Note ---
Subjective Date of service: 10/16/21 Principal diagnosis: AMS; HARDIK; Severe hyperkalemia; Hypertension; CMOP; Mild leukocytosis Interval history: # Acute Kidney Injury/Kidney Failure: creatinine 18, BUN>200 with hyperkalemia, acidosis, likely uremic effects. Noted to have creatinine 1.2 earlier this year so suspect acute kidney injury - STAT HD started 10/06 for hyperkalemia, azotemia/uremia; s/p daily HD x3 days for now given uremia/azotemia and need to avoid disequilibrium - plan for MWF HD for ongoing solute/toxin management - renal ultrasound acutely WNL, no obstruction - urinalysis reviewed, check serologies to rule out GN injury, still pending - note PTH high, may have secondary to underlying CKD - strict Is/Os- not much urine output noted - assess for renal recovery as able - avoid nephrotoxins - hold diuretics, EMILIANO/ARB for now s/p perm cath--await outpatient hd arrangement # HTN: BP stable currently, per primary team due to HTN, Avoid ARB for now given hyperkalemia, HARDIK. Can restart once HARDIK improves or clearly CKD progression # Altered Mentation: unknown baseline # CVA: care per primary, neurology Subjective Interval history: No acute events noted, remains drowsy in bed Objective - Exam Narrative Exam: General appearance: no distress, frail EENT: ATNC Neck: Present: neck supple Respiratory: Clear to Ascultation, Normal Exam Heart: regular Gastrointestinal: Present: normoactive bowel sounds Integumentary: no rash, cool/clammy Neurologic: asterixis/tremulous, confused Objective - Vital Signs Vital signs: Vital Signs - 12hr 10/16/21 10/16/21 10/16/21 04:03 04:21 07:54 Temperature 98.1 F 97.4 F L Pulse Rate 67 66 60 Respiratory 18 Rate Blood Pressure 138/69 Blood Pressure 159/87 [Right] O2 Sat by Pulse 100 100 100 Oximetry - Lab 10/14/21 04:40 10/14/21 04:40 Most recent lab results ABG pH 7.425 pH Units (7.350-7.450) 10/09/21 13:45 ABG pCO2 35.1 mm Hg 10/09/21 13:45 ABG pO2 75.9 mm Hg (80.0-90.0) L 10/09/21 13:45 ABG HCO3 22.5 mmol/L (20.0-26.0) 10/09/21 13:45 ABG O2 Saturation 96.4 % (95.0-99.0) 10/09/21 13:45 Calcium 8.7 mg/dL (8.4-10.2) 10/14/21 04:40 Urine Creatinine 234.3 mg/dL (0.1-20.0) H 10/06/21 14:04 Urine Total Protein 28 mg/dL (5-11.8) H 10/06/21 14:04 Medications & Allergies - Medications Allergies/Adverse Reactions: Allergies No Known Allergies Allergy (Verified 05/09/21 13:32) Home Medications: Home Medications Medication Instructions Recorded Confirmed Last Taken Type Furosemide [Lasix TAB] 40 mg PO QDAY #30 tablet 05/10/21 10/08/21 Unknown Rx carvediloL [Coreg] 6.25 mg PO BID #60 tablet 05/11/21 10/08/21 Unknown Rx NIFEdipine [Nifedipine ER] 60 mg PO DAILY #30 tab 05/13/21 10/08/21 Unknown Rx Valsartan [Diovan] 160 mg PO QDAY #30 tablet 05/13/21 10/08/21 Unknown Rx Active Medications: Generic Name Dose Route Start Last Admin Trade Name Freq PRN Reason Stop Dose Admin Acetaminophen 650 mg 10/06/21 01:42 Acetaminophen 325 Mg Tab PO Q4H PRN Pain MILD(1-3)/Fever >100.5/MARROQUIN Aspirin 81 mg 10/08/21 10:00 10/16/21 09:06 Aspirin 81 Mg Tab Chew PO 81 mg QDAY FREDI Administration Atorvastatin Calcium 40 mg 10/06/21 22:00 10/15/21 21:32 Atorvastatin 40 Mg Tab PO 40 mg QHS FREDI Administration Bisacodyl 10 mg 10/06/21 01:42 Bisacodyl 10 Mg Rect Supp SC QDAY PRN Constipation Carvedilol 6.25 mg 10/07/21 10:00 10/16/21 09:05 Carvedilol 6.25 Mg Tab PO 6.25 mg BID FREDI Administration Dextrose 50 ml 10/06/21 01:42 Dextrose 50% In Water (25gm) 50 Ml Syringe IV Q30MIN PRN Hypoglycemia Protocol Famotidine 20 mg 10/07/21 10:00 10/16/21 09:06 Famotidine 20 Mg Tab PO 20 mg DAILY FREDI Administration Heparin Sodium (Porcine) 5,000 unit 10/06/21 14:00 10/16/21 05:32 Heparin 5,000 Unit/1 Ml Vial SUB-Q Not Given Q8HR FREDI Hydralazine HCl 10 mg 10/06/21 18:38 10/08/21 00:41 Hydralazine 20 Mg/1 Ml Inj IV 10 mg Q4HR PRN Administration Hypertension Magnesium Hydroxide 30 ml 10/06/21 01:42 Magnesium Hydroxide (Mom) Oral Liqd Udc PO Q4H PRN Constipation Metoclopramide HCl 2.5 mg 10/06/21 01:59 Metoclopramide 10 Mg/10 Ml Oral Liqd PO Q6H PRN Nausea And Vomiting Nifedipine 90 mg 10/09/21 10:00 10/16/21 09:06 Nifedipine Xl 90 Mg Tab PO 90 mg QDAY FREDI Administration Ondansetron HCl 4 mg 10/06/21 01:42 Ondansetron 4 Mg/2 Ml Inj IV Q8H PRN Nausea And Vomiting Promethazine HCl 25 mg 10/06/21 01:42 Promethazine 25 Mg Rect Supp SC Q6H PRN Nausea And Vomiting Sodium Chloride 10 ml 10/06/21 10:00 10/16/21 09:06 Sodium Chloride 0.9% 10 Ml Flush Syringe IV 10 ml BID FREDI Administration Sodium Chloride 10 ml 10/06/21 01:42 Sodium Chloride 0.9% 10 Ml Flush Syringe IV PRN PRN LINE FLUSH
--- NOTE | 2021-10-16 15:05 | Progress Note ---
Assessment and Plan Acute toxic metabolic encephalopathy Acute kidney injury Severe hyperkalemia Hypertension CMOP Mild leukocytosis - tentatively for HD/UF M/W/F - no new issues today, continue care as below; - prn supplemental oxygen to keep O2 sats > 90% - prn bronchodilators (MAY) with pulm hygiene per RT - continue to avoid nephrotoxins, renally dose all medications - continue mobility protocols to prevent pressure ulcers - PT/OT as tolerated - Wound care per RN/WCT - continue accuchecks with glycemic control per SSI for target blood glucose < 180 mg/dL - tobacco abstinence strongly counseled at the bedside - home oxygen evaluation at discharge - prn analgesia per pain score - GI & VTE prophylaxis - Flu & pneumovax per protocol - Pulmonary out patient follow up for PFTs and optimization of respiratory status - continue other care per attending / other consultants ... re-evaluate in am & prn Subjective Date of service: 10/16/21 Principal diagnosis: AMS; HARDIK; Severe hyperkalemia; Hypertension; CMOP; Mild leukocytosis Interval history: Patient is seen today for: Acute toxic metabolic encephalopathy; Acute kidney injury; Severe hyperkalemia; Hypertension; CMOP; Mild leukocytosis Seen and examined at bedside; 24hour events reviewed; nursing and respiratory care staff consulted; no adverse overnight events reported to me; resting in bed; still with dementia; denies acute SOB; no N/V/F/C Objective Vital Signs - 12hr 10/16/21 10/16/21 10/16/21 04:03 04:21 07:54 Temperature 98.1 F 97.4 F L Pulse Rate 67 66 60 Respiratory 18 Rate Blood Pressure 138/69 Blood Pressure 159/87 [Right] O2 Sat by Pulse 100 100 100 Oximetry 10/16/21 10:00 Temperature Pulse Rate 55 L Respiratory 18 Rate Blood Pressure Blood Pressure [Right] O2 Sat by Pulse 98 Oximetry Constitutional: no acute distress, alert, other (dementia) Eyes: non-icteric ENT: oropharynx moist Neck: supple, no lymphadenopathy Effort: normal Ascultation: Bilateral: diminished breath sounds Percussion: Bilateral: not dull Cardiovascular: regular rate and rhythm Gastrointestinal: normoactive bowel sounds, soft, non-tender, non-distended Integumentary: cellulitis Extremities: other (Stasis dermatitis.) Neurologic: non-focal exam (grossly), pupils equal and round, motor strength normal and Psychiatric: other (Confused. Not oriented.) CBC and BMP: 10/14/21 04:40 10/14/21 04:40 ABG, PT/INR, D-dimer: ABG ABG pH 7.425 pH Units (7.350-7.450) 10/09/21 13:45 ABG pCO2 35.1 mm Hg 10/09/21 13:45 ABG pO2 75.9 mm Hg (80.0-90.0) L 10/09/21 13:45 ABG O2 Saturation 96.4 % (95.0-99.0) 10/09/21 13:45 PT/INR, D-dimer PT 16.6 Sec. (12.2-14.9) H 10/05/21 21:39 INR 1.20 (0.87-1.13) H 10/05/21 21:39 Abnormal lab findings: Abnormal Labs 10/05/21 10/05/21 10/05/21 21:39 21:39 22:41 WBC 11.3 H RBC Hgb Hct RDW 15.3 H Plt Count Lymph % (Auto) 7.6 L Lipscomb % (Auto) 7.7 H Lymph # (Auto) 0.9 L Lipscomb # (Auto) 0.9 H Seg Neutrophils % 83.7 H Seg Neutrophils # 9.5 H PT 16.6 H INR 1.20 H ABG pO2 ABG Hemoglobin Oxyhemoglobin Sodium Potassium Chloride Carbon Dioxide BUN Creatinine Glucose POC Glucose Calcium ALT Ammonia Total Protein Albumin Nrhxc-8-Xhrypyvmc Nlpcj-2-Lxtgpqsvj PEP Interpretation Triglycerides Cholesterol LDL Cholesterol Direct HDL Cholesterol PTH Intact Urine Creatinine Urine Total Protein Salicylates < 0.3 L 10/05/21 10/05/21 10/06/21 22:41 22:41 04:21 WBC RBC Hgb Hct RDW Plt Count Lymph % (Auto) Lipscomb % (Auto) Lymph # (Auto) Lipscomb # (Auto) Seg Neutrophils % Seg Neutrophils # PT INR ABG pO2 ABG Hemoglobin Oxyhemoglobin Sodium Potassium 7.7 H* 6.1 H* D Chloride Carbon Dioxide 19 L BUN 216 H 224 H Creatinine 18.1 H 19.7 H Glucose 117 H 64 L POC Glucose Calcium 11.0 H ALT < 5 L Ammonia 14.0 L Total Protein 8.3 H Albumin Jgztl-0-Zrhizhkff Akwhp-2-Ofnozwfmk PEP Interpretation Triglycerides Cholesterol LDL Cholesterol Direct HDL Cholesterol PTH Intact Urine Creatinine Urine Total Protein Salicylates 10/06/21 10/06/21 10/06/21 04:21 14:04 17:30 WBC RBC Hgb Hct RDW Plt Count Lymph % (Auto) Lipscomb % (Auto) Lymph # (Auto) Lipscomb # (Auto) Seg Neutrophils % Seg Neutrophils # PT INR ABG pO2 ABG Hemoglobin Oxyhemoglobin Sodium Potassium Chloride Carbon Dioxide BUN 131 H Creatinine 12.7 H Glucose 157 H POC Glucose Calcium ALT Ammonia Total Protein Albumin Uknyd-2-Wzxmbfpjs Dauiq-0-Hpiupimku PEP Interpretation Triglycerides 382 H Cholesterol 273 H LDL Cholesterol Direct 151 H HDL Cholesterol 27 L PTH Intact Urine Creatinine 234.3 H Urine Total Protein 28 H Salicylates 10/07/21 10/07/21 10/07/21 05:14 05:14 05:14 WBC RBC 3.37 L Hgb 10.0 L Hct 30.1 L D RDW Plt Count 117 L Lymph % (Auto) 10.4 L Lipscomb % (Auto) 7.9 H Lymph # (Auto) 0.7 L Lipscomb # (Auto) Seg Neutrophils % 80.2 H Seg Neutrophils # PT INR ABG pO2 ABG Hemoglobin Oxyhemoglobin Sodium Potassium Chloride Carbon Dioxide BUN 123 H Creatinine 10.9 H Glucose 119 H POC Glucose Calcium ALT Ammonia Total Protein Albumin Bxdlc-3-Ghqqwxuje Gasbv-2-Rcsqbbjki PEP Interpretation Triglycerides Cholesterol LDL Cholesterol Direct HDL Cholesterol PTH Intact 333.5 H Urine Creatinine Urine Total Protein Salicylates 10/07/21 10/07/21 10/08/21 05:14 21:43 04:56 WBC RBC 3.59 L Hgb 10.4 L Hct 32.2 L RDW Plt Count 116 L Lymph % (Auto) Lipscomb % (Auto) Lymph # (Auto) Lipscomb # (Auto) Seg Neutrophils % Seg Neutrophils # PT INR ABG pO2 ABG Hemoglobin Oxyhemoglobin Sodium Potassium Chloride Carbon Dioxide BUN Creatinine Glucose POC Glucose 144 H Calcium ALT Ammonia Total Protein Albumin 3.7 L Fnqaf-5-Sfspbdnhn 0.4 H Fpnjc-7-Vdjtdmknz 1.0 H PEP Interpretation see below H Triglycerides Cholesterol LDL Cholesterol Direct HDL Cholesterol PTH Intact Urine Creatinine Urine Total Protein Salicylates 10/08/21 10/08/21 10/08/21 04:56 11:22 15:36 WBC RBC Hgb Hct RDW Plt Count Lymph % (Auto) Lipscomb % (Auto) Lymph # (Auto) Lipscomb # (Auto) Seg Neutrophils % Seg Neutrophils # PT INR ABG pO2 ABG Hemoglobin Oxyhemoglobin Sodium 147 H Potassium Chloride 109.8 H Carbon Dioxide 20 L BUN 123 H Creatinine 9.7 H Glucose 110 H POC Glucose 145 H 139 H Calcium ALT Ammonia Total Protein Albumin Qjswv-1-Kuahztkua Arhwa-2-Mutdwhhjk PEP Interpretation Triglycerides Cholesterol LDL Cholesterol Direct HDL Cholesterol PTH Intact Urine Creatinine Urine Total Protein Salicylates 10/09/21 10/09/21 10/09/21 12:36 13:45 18:01 WBC RBC Hgb Hct RDW Plt Count Lymph % (Auto) Lipscomb % (Auto) Lymph # (Auto) Lipscomb # (Auto) Seg Neutrophils % Seg Neutrophils # PT INR ABG pO2 75.9 L ABG Hemoglobin 10.8 L Oxyhemoglobin 94.8 L Sodium Potassium Chloride Carbon Dioxide BUN Creatinine Glucose POC Glucose 121 H 143 H Calcium ALT Ammonia Total Protein Albumin Ymfkj-0-Cshifsdnt Adlxz-9-Loyzvuqay PEP Interpretation Triglycerides Cholesterol LDL Cholesterol Direct HDL Cholesterol PTH Intact Urine Creatinine Urine Total Protein Salicylates 10/10/21 10/10/21 10/11/21 00:16 05:09 05:13 WBC RBC Hgb Hct RDW Plt Count Lymph % (Auto) Lipscomb % (Auto) Lymph # (Auto) Lipscomb # (Auto) Seg Neutrophils % Seg Neutrophils # PT INR ABG pO2 ABG Hemoglobin Oxyhemoglobin Sodium 147 H Potassium Chloride 109.0 H Carbon Dioxide BUN 103 H 45 H Creatinine 6.8 H 4.6 H Glucose 108 H POC Glucose 108 H Calcium ALT Ammonia Total Protein Albumin Aztro-8-Tobakvmbd Hdjia-9-Ofcuvkqqp PEP Interpretation Triglycerides Cholesterol LDL Cholesterol Direct HDL Cholesterol PTH Intact Urine Creatinine Urine Total Protein Salicylates 10/12/21 10/12/21 10/13/21 04:50 16:31 00:01 WBC RBC Hgb Hct RDW Plt Count Lymph % (Auto) Lipscomb % (Auto) Lymph # (Auto) Lipscomb # (Auto) Seg Neutrophils % Seg Neutrophils # PT INR ABG pO2 ABG Hemoglobin Oxyhemoglobin Sodium Potassium Chloride Carbon Dioxide BUN 52 H Creatinine 4.9 H Glucose POC Glucose 117 H 111 H Calcium ALT Ammonia Total Protein Albumin Oypud-9-Fgsfuhzap Dpmrc-6-Jwcrhmgat PEP Interpretation Triglycerides Cholesterol LDL Cholesterol Direct HDL Cholesterol PTH Intact Urine Creatinine Urine Total Protein Salicylates 10/13/21 10/13/21 10/13/21 12:30 18:27 23:30 WBC RBC Hgb Hct RDW Plt Count Lymph % (Auto) Lipscomb % (Auto) Lymph # (Auto) Lipscomb # (Auto) Seg Neutrophils % Seg Neutrophils # PT INR ABG pO2 ABG Hemoglobin Oxyhemoglobin Sodium Potassium Chloride Carbon Dioxide BUN Creatinine Glucose POC Glucose 116 H 133 H 109 H Calcium ALT Ammonia Total Protein Albumin Nftur-7-Dspdxrtzm Oanpi-4-Zfqussomc PEP Interpretation Triglycerides Cholesterol LDL Cholesterol Direct HDL Cholesterol PTH Intact Urine Creatinine Urine Total Protein Salicylates 10/14/21 10/14/21 10/14/21 04:40 04:40 17:31 WBC RBC 2.81 L Hgb 8.3 L Hct 25.3 L RDW Plt Count Lymph % (Auto) Lipscomb % (Auto) 14.4 H Lymph # (Auto) Lipscomb # (Auto) Seg Neutrophils % Seg Neutrophils # PT INR ABG pO2 ABG Hemoglobin Oxyhemoglobin Sodium Potassium 3.5 L Chloride Carbon Dioxide BUN 47 H Creatinine 5.0 H Glucose POC Glucose 106 H Calcium ALT Ammonia Total Protein Albumin Cloxv-3-Hlvdzjmzm Barjd-4-Glzuylrzx PEP Interpretation Triglycerides Cholesterol LDL Cholesterol Direct HDL Cholesterol PTH Intact Urine Creatinine Urine Total Protein Salicylates Allied health notes reviewed: nursing
--- NOTE | 2021-10-17 02:12 | Progress Note ---
Assessment and Plan Assessment and plan: #Acute Metabolic Encephalopathy: Resolved (we will continue close 20 flexion 120 Multifactorial, acute stroke , acute kidney injury , electrolyte abnormalities treat the underlying cause, Supportive care #Acute CVA: Left thalamic infarction Continue aspirin and statin Physical therapy occupational therapy Recommended subacute rehab Awaiting placement/return to [facility] facility MRI brain:extensive chronic and age-related changes punctate focus of increased diffusion weighted signal in the left thalamic area Evidence of recent or acute left thalamic infarction Neurology evaluated once on admission Awaiting placement/return to [facility]/awaiting authorization Acute on Chronic Kidney Disease; transition to end-stage renal disease Nephrology evaluated, initiated hemodialysis on 10/06/21 Patient had permacath placement on 10/14/2021 HD per schedule, MWF, outpatient HD placement in process per #Severe Hyperkalemia- resolved -Initial potassium was 7.1, managed appropriately Currently hemodialysis per schedule #Hypertension; moderate control Continue current antihypertensives As needed hydralazine #Big Toe Ulcer, Left/wound dressing. Elevate the limb Supportive care - Left big toe ulcer noted - Per patient's daughter, patient is following with Vascular Surgery outpatient, revascularization was performed in the [facility] in the past and they were considering the possibility of amputating that left toe. - No evidence of any infectious process at this time and patient is currently he modynamicaly stable - Will get wound care for wound management - Follow up with Vascular Surgery outpatient for further management. #Hypoglycemia-resolved Closely monitor blood sugars Adjust management as needed Closely monitor blood sugars Hypoglycemia resolved #GI/DVT Prophylaxis - PPI- Pepcid - Heparin SubQ - SCDs to bilateral lower extremities while in bed #Advance Care Planning - Disease education data, care plan, diagnoses, and prognosis were discussed with patient's daughter. Patient is a FULL code. Patient's daughter acknowledged understanding and agreement with current care plan. Closely monitor the patient and adjust the management as needed Plan of care reviewed with the patient and his nurse Discharge planning; PT recommended subacute rehab versus [facility] Patient would return to [facility] when medically stable Awaiting authorization Possible discharge in 1 to 2 days if stable Plan of care reviewed with the patient. His nurse, case management s/p permacath placement followed by HD today processing outpatient HD placement. Brief history and Daily hospital course: 10/06: Remains altered but stable on 2L NC, VSS. Still hyperkalemic this am, HD in progress at the bedside. Repeat BMP a hour after HD. CT head/Brain noted. Continue CVA workup, MRI brain, US carotid, and 2D echo pending. Neurology consulted. Patient is hypoglycemic this am, s/p IV insulin for hyperkalemia, continue BG check and hypoglycemic protocol. Will order diet if patient pass bedside swallow. PT/OT/Speech consulted. Left big toe ulcer noted. Per patient's daughter, patient is following with Vascular Surgery outpatient, revasculariz ation was performed in the [facility] in the past and they were talking of possibly amputating that left toe. No evidence of any infectious process at this time and patient is currently hemodynamicaly stable. Will get wound care for wound management. Follow up with Vascular surgery outpatient for further management. 10/07: Increased confusion and agitation required wrist restraints overnight for safety. Patient is still confused this am, but calm and cooperative. MRI brain pending. Patient tolerated HD yesterday. Hypertensive this am, resumed home meds and continue PRN antihypertensives. Continue HD per Nephro. Patient is stable for transfer to Telemetry. 10/09/2021; patient is slightly agitated requiring restraints Awaiting return to SNF when medically stable Nephrology initiated hemodialysis, HD as needed If renal decides that patient needs long-term hemodialysis Case management will assist with outpatient HD chair scheduling 10/11/2021; patient is receiving hemodialysis Once nephrology confirms long-term HD, check with case management for outpatient HD placement Patient continues to be confused requiring restraints 10/12/2021; patient is more alert and awake responding appropriately Continue current management, if he continues to be manageable, will try to DC restraints 10/13/2021; today patient is more alert and awake,, CM assisting with outpatient HD placement Hemodialysis per schedule MWF, possible discharge in [facility] facility 2 days if stable 10/14/2021; patient had permacath followed by hemodialysis today tolerated well, Case management assisting with outpatient HD placement 10/15/2021; patient is comfortable no new complaints Awaiting placement/return to [facility] facility 10/16/2021; awaiting to go back to [facility] Awaiting authorization 10/17/2021; patient is medically stable awaiting Placement/return to [facility] facility pending authorization. Disposition: Patient medically stable for discharge DC planning per case management. Echo with 70 recommend continue noninvasive collar admitted to skilled History Interval history: I have seen and examined the patient this morning at the bedside Patient's chart and medications reviewed Patient feels better no new complaints No new events reported by the nursing staff Patient is alert awake oriented no new complaints Patient is awaiting long-term/subacute rehab placement Vital signs reviewed Hospitalist Physical - Constitutional Vitals: Temp Pulse Resp BP Pulse Ox 98.9 F 64 17 124/78 96 10/16/21 20:11 10/16/21 20:11 10/16/21 20:11 10/16/21 20:11 10/16/21 22:12 General appearance: Present: no acute distress, well-nourished - EENT Eyes: Present: PERRL, EOM intact - Neck Neck: Present: supple, normal ROM - Respiratory Respiratory effort: normal Respiratory: bilateral: diminished, negative: rales, rhonchi, wheezing - Cardiovascular Rhythm: regular Heart Sounds: Present: S1 & S2 - Extremities Extremities: no ischemia, No edema - Abdominal General gastrointestinal: soft, non-tender, non-distended, normal bowel sounds - Integumentary Integumentary: Present: clear, warm - Psychiatric Psychiatric: appropriate mood/affect, cooperative - Neurologic Neurologic: moves all extremities, other (Acute CVA with residual weakness) Results - Labs CBC & Chem 7: 10/14/21 04:40 10/14/21 04:40 Labs: Laboratory Last Values WBC 5.6 K/mm3 (4.5-11.0) 10/14/21 04:40 RBC 2.81 M/mm3 (3.65-5.03) L 10/14/21 04:40 Hgb 8.3 gm/dl (11.8-15.2) L 10/14/21 04:40 Hct 25.3 % (35.5-45.6) L 10/14/21 04:40 MCV 90 fl (84-94) 10/14/21 04:40 MCH 30 pg (28-32) 10/14/21 04:40 MCHC 33 % (32-34) 10/14/21 04:40 RDW 14.6 % (13.2-15.2) 10/14/21 04:40 Plt Count 186 K/mm3 (140-440) 10/14/21 04:40 Lymph % (Auto) 26.8 % (13.4-35.0) 10/14/21 04:40 [place] % (Auto) 14.4 % (0.0-7.3) H 10/14/21 04:40 Eos % (Auto) 3.3 % (0.0-4.3) 10/14/21 04:40 Baso % (Auto) 0.7 % (0.0-1.8) 10/14/21 04:40 Lymph # (Auto) 1.5 K/mm3 (1.2-5.4) 10/14/21 04:40 [place] # (Auto) 0.8 K/mm3 (0.0-0.8) 10/14/21 04:40 Eos # (Auto) 0.2 K/mm3 (0.0-0.4) 10/14/21 04:40 Baso # (Auto) 0.0 K/mm3 (0.0-0.1) 10/14/21 04:40 Seg Neutrophils % 54.8 % (40.0-70.0) 10/14/21 04:40 Seg Neutrophils # 3.1 K/mm3 (1.8-7.7) 10/14/21 04:40 PT 16.6 Sec. (12.2-14.9) H 10/05/21 21:39 INR 1.20 (0.87-1.13) H 10/05/21 21:39 ABG pH 7.425 pH Units (7.350-7.450) 10/09/21 13:45 ABG pCO2 35.1 mm Hg 10/09/21 13:45 ABG pO2 75.9 mm Hg (80.0-90.0) L 10/09/21 13:45 ABG HCO3 22.5 mmol/L (20.0-26.0) 10/09/21 13:45 ABG O2 Saturation 96.4 % (95.0-99.0) 10/09/21 13:45 ABG O2 Content 14.5 (0.0-44) 10/09/21 13:45 ABG Base Excess -1.5 mmol/L (-2.0-3.0) 10/09/21 13:45 ABG Hemoglobin 10.8 gm/dl (14.0-18.0) L 10/09/21 13:45 ABG Carboxyhemoglobin 1.2 % (0.0-5.0) 10/09/21 13:45 ABG Methemoglobin 0.5 % (0.0-1.5) 10/09/21 13:45 Oxyhemoglobin 94.8 % (95.0-99.0) L 10/09/21 13:45 FiO2 21 % 10/09/21 13:45 Sodium 144 mmol/L (137-145) 10/14/21 04:40 Potassium 3.5 mmol/L (3.6-5.0) L 10/14/21 04:40 Chloride 103.7 mmol/L (98-107) 10/14/21 04:40 Carbon Dioxide 25 mmol/L (22-30) 10/14/21 04:40 Anion Gap 19 mmol/L 10/14/21 04:40 BUN 47 mg/dL (9-20) H 10/14/21 04:40 Creatinine 5.0 mg/dL (0.8-1.3) H 10/14/21 04:40 Estimated GFR 14 ml/min 10/14/21 04:40 BUN/Creatinine Ratio 9 % 10/14/21 04:40 Glucose 99 mg/dL (75-100) 10/14/21 04:40 POC Glucose 119 mg/dL (70-105) H 10/16/21 16:02 Calcium 8.7 mg/dL (8.4-10.2) 10/14/21 04:40 Total Bilirubin 0.50 mg/dL (0.1-1.2) 10/05/21 22:41 AST 11 units/L (5-40) 10/05/21 22:41 ALT < 5 units/L (7-56) L 10/05/21 22:41 Alkaline Phosphatase 64 units/L (35-129) 10/05/21 22:41 Ammonia 14.0 umol/L (25-60) L 10/05/21 22:41 Serum Total Protein 6.9 g/dL (6.1-8.1) 10/07/21 05:14 Total Protein 8.3 g/dL (6.3-8.2) H 10/05/21 22:41 Albumin 3.7 g/dL (3.8-4.8) L 10/07/21 05:14 Albumin/Globulin Ratio 1.4 % 10/05/21 22:41 Ogpcx-0-Qlkqavaeo 0.4 g/dL (0.2-0.3) H 10/07/21 05:14 Qonnr-3-Mndeiamzl 1.0 g/dL (0.5-0.9) H 10/07/21 05:14 Beta Globulins 0.4 g/dL (0.2-0.5) 10/07/21 05:14 Gamma Globulins 1.1 g/dL (0.8-1.7) 10/07/21 05:14 Abnorm Protein Band 1 see below 10/07/21 05:14 PEP Interpretation see below H 10/07/21 05:14 Triglycerides 382 mg/dL (2-149) H 10/06/21 04:21 Cholesterol 273 mg/dL (50-199) H 10/06/21 04:21 LDL Cholesterol Direct 151 mg/dL (50-130) H 10/06/21 04:21 HDL Cholesterol 27 mg/dL (40-59) L 10/06/21 04:21 Cholesterol/HDL Ratio 10.11 % 10/06/21 04:21 PTH Intact 333.5 pg/mL (15-65) H 10/07/21 05:14 Urine Color Yellow (Yellow) 10/06/21 Unknown Urine Turbidity Clear (Clear) 10/06/21 Unknown Urine pH 5.0 (5.0-7.0) 10/06/21 Unknown Ur Specific [place] 1.015 (1.003-1.030) 10/06/21 Unknown Urine Protein <15 mg/dl mg/dL (Negative) 10/06/21 Unknown Urine Glucose (UA) Neg mg/dL (Negative) 10/06/21 Unknown Urine Ketones Neg mg/dL (Negative) 10/06/21 Unknown Urine Blood Sm (Negative) 10/06/21 Unknown Urine Nitrite Neg (Negative) 10/06/21 Unknown Urine Bilirubin Neg (Negative) 10/06/21 Unknown Urine Urobilinogen < 2.0 mg/dL (<2.0) 10/06/21 Unknown Ur Leukocyte Esterase Neg (Negative) 10/06/21 Unknown Urine WBC (Auto) 2.0 /HPF (0.0-6.0) 10/06/21 Unknown Urine RBC (Auto) 4.0 /HPF (0.0-6.0) 10/06/21 Unknown U Epithel Cells (Auto) 3.0 /HPF (0-13.0) 10/06/21 Unknown Urine Bacteria (Auto) 1+ /HPF (Negative) 10/06/21 Unknown Hyaline Casts 14 /LPF 10/06/21 Unknown Urine Mucus Few /HPF 10/06/21 Unknown Urine Yeast (Budding) 2+ /HPF 10/06/21 Unknown Urine Creatinine 234.3 mg/dL (0.1-20.0) H 10/06/21 14:04 Protein/Creatinin Ratio 0.12 10/06/21 14:04 Urine Total Protein 28 mg/dL (5-11.8) H 10/06/21 14:04 Salicylates < 0.3 mg/dL (2.8-20.0) L 10/05/21 22:41 Urine Opiates Screen Presumptive negative 10/06/21 Unknown Urine Methadone Screen Presumptive negative 10/06/21 Unknown Ur Barbiturates Screen Presumptive negative 10/06/21 Unknown Ur Phencyclidine Scrn Presumptive negative 10/06/21 Unknown Ur Amphetamines Screen Presumptive negative 10/06/21 Unknown U Benzodiazepines Scrn Presumptive negative 10/06/21 Unknown Urine Cocaine Screen Presumptive negative 10/06/21 Unknown U Marijuana (THC) Screen Presumptive negative 10/06/21 Unknown Drugs of Abuse Note Disclamer 10/06/21 Unknown Plasma/Serum Alcohol < 0.01 % (0-0.07) 10/05/21 21:39 LILIYA Screen Negative (Negative) 10/07/21 05:14 Proteinase 3 (PR3) Ab <1.0 AI (<1.0) 10/07/21 05:14 Myeloperoxidase Ab <1.0 AI (<1.0) 10/07/21 05:14 Complement C3 117 mg/dL (82-185) 10/07/21 05:14 Complement C4 40 mg/dL (15-53) 10/07/21 05:14 Coronavirus (PCR) Negative (Negative) 10/12/21 14:10 Hepatitis A IgM Ab Non-reactive (NonReactive) 10/06/21 09:12 Hep Bs Antigen Non-reactive (Negative) 10/06/21 09:12 Hep B Core IgM Ab Non-reactive (NonReactive) 10/06/21 09:12 Hepatitis C Antibody Non-reactive (NonReactive) 10/06/21 09:12 Paez/IV: Voiding Method Condom Catheter Active Medications - Current Medications Current Medications: Generic Name Dose Route Start Last Admin Trade Name Freq PRN Reason Stop Dose Admin Acetaminophen 650 mg 10/06/21 01:42 Acetaminophen 325 Mg Tab PO Q4H PRN Pain MILD(1-3)/Fever >100.5/MARROQUIN Aspirin 81 mg 10/08/21 10:00 10/16/21 09:06 Aspirin 81 Mg Tab Chew PO 81 mg QDAY FREDI Administration Atorvastatin Calcium 40 mg 10/06/21 22:00 10/16/21 21:14 Atorvastatin 40 Mg Tab PO 40 mg QHS FREDI Administration Bisacodyl 10 mg 10/06/21 01:42 Bisacodyl 10 Mg Rect Supp GA QDAY PRN Constipation Carvedilol 6.25 mg 10/07/21 10:00 10/16/21 21:14 Carvedilol 6.25 Mg Tab PO 6.25 mg BID FREDI Administration Dextrose 50 ml 10/06/21 01:42 Dextrose 50% In Water (25gm) 50 Ml Syringe IV Q30MIN PRN Hypoglycemia Protocol Famotidine 20 mg 10/07/21 10:00 10/16/21 09:06 Famotidine 20 Mg Tab PO 20 mg DAILY FREDI Administration Heparin Sodium (Porcine) 5,000 unit 10/06/21 14:00 10/16/21 21:14 Heparin 5,000 Unit/1 Ml Vial SUB-Q 5,000 unit Q8HR FREDI Administration Hydralazine HCl 10 mg 10/06/21 18:38 10/08/21 00:41 Hydralazine 20 Mg/1 Ml Inj IV 10 mg Q4HR PRN Administration Hypertension Magnesium Hydroxide 30 ml 10/06/21 01:42 Magnesium Hydroxide (Mom) Oral Liqd Udc PO Q4H PRN Constipation Metoclopramide HCl 2.5 mg 10/06/21 01:59 Metoclopramide 10 Mg/10 Ml Oral Liqd PO Q6H PRN Nausea And Vomiting Nifedipine 90 mg 10/09/21 10:00 10/16/21 09:06 Nifedipine Xl 90 Mg Tab PO 90 mg QDAY FREDI Administration Ondansetron HCl 4 mg 10/06/21 01:42 Ondansetron 4 Mg/2 Ml Inj IV Q8H PRN Nausea And Vomiting Promethazine HCl 25 mg 10/06/21 01:42 Promethazine 25 Mg Rect Supp GA Q6H PRN Nausea And Vomiting Sodium Chloride 10 ml 10/06/21 10:00 10/16/21 21:14 Sodium Chloride 0.9% 10 Ml Flush Syringe IV 10 ml BID FREDI Administration Sodium Chloride 10 ml 10/06/21 01:42 Sodium Chloride 0.9% 10 Ml Flush Syringe IV PRN PRN LINE FLUSH Nutrition/Malnutrition Assess - Dietary Evaluation Nutrition/Malnutrition Findings: Nutrition Notes Start: 10/06/21 16:50 Freq: Status: Active Protocol: Document 10/12/21 18:47 NOEL (Rec: 10/12/21 19:17 NOEL [id number]) Nutrition Notes Need for Assessment generated from: Low BMI Initial or Follow up Reassessment Current Diagnosis Acute Kidney Injury, Hypertension,Stroke Other Pertinent Diagnosis AMS, HARDIK+HD, Leukocytosis. Current Diet Pureed Diet (since D 10/06), D Suppl (from B 10/13). Labs/Tests 10/12: BUN 52, Crea 4.9. Pertinent Medications 10/12: Nutritionally unremarkable. Height 6 ft 2 in Weight 56 kg [place] Body Weight (kg) 86.36 BMI 15.8 Weight change and time frame Anthropometric data from [facility] visit 05/16/21: Wt 63.4 Kg, BMI 17.9 Kg/m2. Discrepancy of 18.843 Kg body weight loss in 6 days reported . Weight Status Underweight Subjective/Other Information RD consult for Low BMI assessment. Pt's PO intake of meals has been Negligible (0-25%), according to ADL notes. I will prescribe Dietary Supplements to compensate for poor or insufficient PO intake of meals. Pt is on Room Air, O2 saturation @ 98%, according to Physical Assessment History notes. Anthropometric data from [facility] visit 05/16/21: Wt 63.4 Kg, BMI 17.9 Kg/m2. Pt's Low BMI seems to correspond to a natural body composition, and related to a gradual loss of body weight along with chronic malnutrition, according to anthropometric information referred from previous visits. Pt needs total assistance with ADL activities, not a candidate for Nutrition Education. Percent of energy/protein needs met: Prescribed Pureed Diet provides for energy/protein needs (1,804 Kcal/77 g) during LOS; additionally, Dietary Supplements will compensate for possible poor or insufficient PO intake of meals with 1,275 Kcal and 57 g of protein. Burn Absent Trauma Absent GI Symptoms None Food Allergy No Skin Integrity/Comment L-Big Toe area of concern. Current % PO Negligible Minimum of two criteria Yes Energy Intake (severe) < or equal to 50% Estimated Energy Requirement > or equal to 5 days Interpretation of Weight Loss (severe) >7.5% in 3 months Fluid Accumulation N/A Reduced Pl [employer] Strength N/A (non-severe) Protein-Calorie Malnutrition Severe #1 Nutrition Diagnosis Malnutrition Etiology Ongoing and concomitant chronic metabolic conditions. As Evidenced by Signs and Symptoms Poor appetite < or equal to 50 % Estimated Energy Requirement > or equal to 5 days, Loss of body weight >7.5% in 3 months . Is patient on ventilator? No Is Patient Ambulatory and/or Out of Bed No REE-([facility]-confined to bed) 1667.844 Kcal/Kg value to use for calculation 42 Approximate Energy Requirements Using 2352 kcal/Kg Calculation Used for Recommendations Kcal/kg Additional Notes Protein: >1.2 g/Kg IBW; >103 g /day. Fluids: 1 ml/Kcal, or as per MD. Nutrition Intervention Change Diet Order: Continue Pureed Diet. Add Supplement/Snack (indicate name/kcal Start 8 fl oz Nepro w/ /protein ) CARBSTEADY; TID. Provides kCal: 1,275 Provides Protein (gm) 57 Goal #1 Compensate, through dietary supplementation, for possible poor or insufficient PO intake of meals during LOS. Goal #2 Adjust the dietary intervention to better serve Pt's needs and clinical conditions during LOS. Follow-Up By: 10/19/21 Additional Comments Continue monitoring food tolerance, %PO intake of meals and ONS, and BM.
[2021-10-17] MEDS: HEPARIN 5,000 UNIT/1 ML VIAL SUB-Q SCH ×3 (06:15→21:07)
[2021-10-17] MEDS: NIFEdipine XL 90 MG TAB PO SCH (09:23)
[2021-10-17] MEDS: FAMOTIDINE 20 MG TAB PO SCH (09:23)
[2021-10-17] MEDS: carvediloL 6.25 MG TAB PO SCH ×2 (09:23→21:07)
[2021-10-17] MEDS: ASPIRIN 81 MG TAB CHEW PO SCH (09:23)
--- NOTE | 2021-10-17 13:58 | Progress Note ---
Assessment and Plan Acute toxic metabolic encephalopathy Acute kidney injury Severe hyperkalemia Hypertension CMOP Mild leukocytosis - tentatively for HD/UF M/W/F - no new issues today, continue care as below; - prn supplemental oxygen to keep O2 sats > 90% - prn bronchodilators (MAY) with pulm hygiene per RT - continue to avoid nephrotoxins, renally dose all medications - continue mobility protocols to prevent pressure ulcers - PT/OT as tolerated - Wound care per RN/WCT - continue accuchecks with glycemic control per SSI for target blood glucose < 180 mg/dL - tobacco abstinence strongly counseled at the bedside - home oxygen evaluation at discharge - prn analgesia per pain score - GI & VTE prophylaxis - Flu & pneumovax per protocol - Pulmonary out patient follow up for PFTs and optimization of respiratory status - continue other care per attending / other consultants ... re-evaluate in am & prn Subjective Date of service: 10/17/21 Principal diagnosis: AMS; HARDIK; Severe hyperkalemia; Hypertension; CMOP; Mild leukocytosis Interval history: Patient is seen today for: Acute toxic metabolic encephalopathy; Acute kidney injury; Severe hyperkalemia; Hypertension; CMOP; Mild leukocytosis Seen and examined at bedside; 24hour events reviewed; nursing and respiratory care staff consulted; no adverse overnight events reported to me; resting in bed; Objective Vital Signs - 12hr 10/17/21 10/17/21 10/17/21 03:53 08:04 10:00 Temperature 99.0 F 98.9 F Pulse Rate 65 Respiratory 18 16 18 Rate Blood Pressure 133/72 139/87 O2 Sat by Pulse 100 97 Oximetry O2 Sat by Pulse Oximetry [ Anterior Bilateral] 10/17/21 10/17/21 10/17/21 10:15 10:30 10:45 Temperature Pulse Rate 72 66 68 Respiratory Rate Blood Pressure 139/78 121/67 121/75 O2 Sat by Pulse Oximetry O2 Sat by Pulse Oximetry [ Anterior Bilateral] 10/17/21 10/17/21 10/17/21 11:00 11:15 11:30 Temperature Pulse Rate 67 60 64 Respiratory Rate Blood Pressure 125/73 123/66 118/71 O2 Sat by Pulse Oximetry O2 Sat by Pulse Oximetry [ Anterior Bilateral] 10/17/21 10/17/21 10/17/21 11:45 12:00 12:15 Temperature Pulse Rate 65 66 67 Respiratory Rate Blood Pressure 117/71 122/73 121/71 O2 Sat by Pulse Oximetry O2 Sat by Pulse Oximetry [ Anterior Bilateral] 10/17/21 10/17/21 12:30 12:35 Temperature 98.2 F Pulse Rate 67 70 Respiratory 20 Rate Blood Pressure 136/80 143/79 O2 Sat by Pulse Oximetry O2 Sat by Pulse 100 Oximetry [ Anterior Bilateral] Constitutional: no acute distress, alert, other (dementia) Eyes: non-icteric ENT: oropharynx moist Neck: supple, no lymphadenopathy Effort: normal Ascultation: Bilateral: diminished breath sounds Percussion: Bilateral: not dull Cardiovascular: regular rate and rhythm Gastrointestinal: normoactive bowel sounds, soft, non-tender, non-distended Integumentary: cellulitis Extremities: other (Stasis dermatitis.) Neurologic: non-focal exam (grossly), pupils equal and round, motor strength normal and Psychiatric: other (Confused. Not oriented.) CBC and BMP: 10/14/21 04:40 10/14/21 04:40 ABG, PT/INR, D-dimer: ABG ABG pH 7.425 pH Units (7.350-7.450) 10/09/21 13:45 ABG pCO2 35.1 mm Hg 10/09/21 13:45 ABG pO2 75.9 mm Hg (80.0-90.0) L 10/09/21 13:45 ABG O2 Saturation 96.4 % (95.0-99.0) 10/09/21 13:45 PT/INR, D-dimer PT 16.6 Sec. (12.2-14.9) H 10/05/21 21:39 INR 1.20 (0.87-1.13) H 10/05/21 21:39 Abnormal lab findings: Abnormal Labs 10/05/21 10/05/21 10/05/21 21:39 21:39 22:41 WBC 11.3 H RBC Hgb Hct RDW 15.3 H Plt Count Lymph % (Auto) 7.6 L [place] % (Auto) 7.7 H Lymph # (Auto) 0.9 L [place] # (Auto) 0.9 H Seg Neutrophils % 83.7 H Seg Neutrophils # 9.5 H PT 16.6 H INR 1.20 H ABG pO2 ABG Hemoglobin Oxyhemoglobin Sodium Potassium Chloride Carbon Dioxide BUN Creatinine Glucose POC Glucose Calcium ALT Ammonia Total Protein Albumin [place]-8-Holgoiheb Aocus-4-Muunlaqlv PEP Interpretation Triglycerides Cholesterol LDL Cholesterol Direct HDL Cholesterol PTH Intact Urine Creatinine Urine Total Protein Salicylates < 0.3 L 10/05/21 10/05/21 10/06/21 22:41 22:41 04:21 WBC RBC Hgb Hct RDW Plt Count Lymph % (Auto) [place] % (Auto) Lymph # (Auto) [place] # (Auto) Seg Neutrophils % Seg Neutrophils # PT INR ABG pO2 ABG Hemoglobin Oxyhemoglobin Sodium Potassium 7.7 H* 6.1 H* D Chloride Carbon Dioxide 19 L BUN 216 H 224 H Creatinine 18.1 H 19.7 H Glucose 117 H 64 L POC Glucose Calcium 11.0 H ALT < 5 L Ammonia 14.0 L Total Protein 8.3 H Albumin Dtwpi-5-Wyokscbfr Cftin-4-Cnlmukmws PEP Interpretation Triglycerides Cholesterol LDL Cholesterol Direct HDL Cholesterol PTH Intact Urine Creatinine Urine Total Protein Salicylates 10/06/21 10/06/21 10/06/21 04:21 14:04 17:30 WBC RBC Hgb Hct RDW Plt Count Lymph % (Auto) [place] % (Auto) Lymph # (Auto) [place] # (Auto) Seg Neutrophils % Seg Neutrophils # PT INR ABG pO2 ABG Hemoglobin Oxyhemoglobin Sodium Potassium Chloride Carbon Dioxide BUN 131 H Creatinine 12.7 H Glucose 157 H POC Glucose Calcium ALT Ammonia Total Protein Albumin Ncroc-7-Edohddcvf Yefdo-1-Rzcuxxyvh PEP Interpretation Triglycerides 382 H Cholesterol 273 H LDL Cholesterol Direct 151 H HDL Cholesterol 27 L PTH Intact Urine Creatinine 234.3 H Urine Total Protein 28 H Salicylates 10/07/21 10/07/21 10/07/21 05:14 05:14 05:14 WBC RBC 3.37 L Hgb 10.0 L Hct 30.1 L D RDW Plt Count 117 L Lymph % (Auto) 10.4 L [place] % (Auto) 7.9 H Lymph # (Auto) 0.7 L [place] # (Auto) Seg Neutrophils % 80.2 H Seg Neutrophils # PT INR ABG pO2 ABG Hemoglobin Oxyhemoglobin Sodium Potassium Chloride Carbon Dioxide BUN 123 H Creatinine 10.9 H Glucose 119 H POC Glucose Calcium ALT Ammonia Total Protein Albumin Spzua-2-Wgffvtvzb Agzaa-9-Ephpyuwyl PEP Interpretation Triglycerides Cholesterol LDL Cholesterol Direct HDL Cholesterol PTH Intact 333.5 H Urine Creatinine Urine Total Protein Salicylates 10/07/21 10/07/21 10/08/21 05:14 21:43 04:56 WBC RBC 3.59 L Hgb 10.4 L Hct 32.2 L RDW Plt Count 116 L Lymph % (Auto) [place] % (Auto) Lymph # (Auto) [place] # (Auto) Seg Neutrophils % Seg Neutrophils # PT INR ABG pO2 ABG Hemoglobin Oxyhemoglobin Sodium Potassium Chloride Carbon Dioxide BUN Creatinine Glucose POC Glucose 144 H Calcium ALT Ammonia Total Protein Albumin 3.7 L Iztep-3-Whdzuaytg 0.4 H Zsejc-4-Afcmqoejs 1.0 H PEP Interpretation see below H Triglycerides Cholesterol LDL Cholesterol Direct HDL Cholesterol PTH Intact Urine Creatinine Urine Total Protein Salicylates 10/08/21 10/08/21 10/08/21 04:56 11:22 15:36 WBC RBC Hgb Hct RDW Plt Count Lymph % (Auto) [place] % (Auto) Lymph # (Auto) [place] # (Auto) Seg Neutrophils % Seg Neutrophils # PT INR ABG pO2 ABG Hemoglobin Oxyhemoglobin Sodium 147 H Potassium Chloride 109.8 H Carbon Dioxide 20 L BUN 123 H Creatinine 9.7 H Glucose 110 H POC Glucose 145 H 139 H Calcium ALT Ammonia Total Protein Albumin Ortbq-5-Grmjlebuy Mwqda-0-Hcikrrnux PEP Interpretation Triglycerides Cholesterol LDL Cholesterol Direct HDL Cholesterol PTH Intact Urine Creatinine Urine Total Protein Salicylates 10/09/21 10/09/21 10/09/21 12:36 13:45 18:01 WBC RBC Hgb Hct RDW Plt Count Lymph % (Auto) [place] % (Auto) Lymph # (Auto) [place] # (Auto) Seg Neutrophils % Seg Neutrophils # PT INR ABG pO2 75.9 L ABG Hemoglobin 10.8 L Oxyhemoglobin 94.8 L Sodium Potassium Chloride Carbon Dioxide BUN Creatinine Glucose POC Glucose 121 H 143 H Calcium ALT Ammonia Total Protein Albumin Qucjo-4-Kzttlajht Jhiku-1-Rvqzrpnlc PEP Interpretation Triglycerides Cholesterol LDL Cholesterol Direct HDL Cholesterol PTH Intact Urine Creatinine Urine Total Protein Salicylates 10/10/21 10/10/21 10/11/21 00:16 05:09 05:13 WBC RBC Hgb Hct RDW Plt Count Lymph % (Auto) [place] % (Auto) Lymph # (Auto) [place] # (Auto) Seg Neutrophils % Seg Neutrophils # PT INR ABG pO2 ABG Hemoglobin Oxyhemoglobin Sodium 147 H Potassium Chloride 109.0 H Carbon Dioxide BUN 103 H 45 H Creatinine 6.8 H 4.6 H Glucose 108 H POC Glucose 108 H Calcium ALT Ammonia Total Protein Albumin Aonlk-9-Zcsehgrhs Wjopc-2-Khstdmogt PEP Interpretation Triglycerides Cholesterol LDL Cholesterol Direct HDL Cholesterol PTH Intact Urine Creatinine Urine Total Protein Salicylates 10/12/21 10/12/21 10/13/21 04:50 16:31 00:01 WBC RBC Hgb Hct RDW Plt Count Lymph % (Auto) [place] % (Auto) Lymph # (Auto) [place] # (Auto) Seg Neutrophils % Seg Neutrophils # PT INR ABG pO2 ABG Hemoglobin Oxyhemoglobin Sodium Potassium Chloride Carbon Dioxide BUN 52 H Creatinine 4.9 H Glucose POC Glucose 117 H 111 H Calcium ALT Ammonia Total Protein Albumin Zvrkk-5-Fpjpjpxvy Cqssu-5-Monpziqic PEP Interpretation Triglycerides Cholesterol LDL Cholesterol Direct HDL Cholesterol PTH Intact Urine Creatinine Urine Total Protein Salicylates 10/13/21 10/13/21 10/13/21 12:30 18:27 23:30 WBC RBC Hgb Hct RDW Plt Count Lymph % (Auto) [place] % (Auto) Lymph # (Auto) [place] # (Auto) Seg Neutrophils % Seg Neutrophils # PT INR ABG pO2 ABG Hemoglobin Oxyhemoglobin Sodium Potassium Chloride Carbon Dioxide BUN Creatinine Glucose POC Glucose 116 H 133 H 109 H Calcium ALT Ammonia Total Protein Albumin Asykd-8-Vdfmgzrjm Beklg-1-Rhqleutgz PEP Interpretation Triglycerides Cholesterol LDL Cholesterol Direct HDL Cholesterol PTH Intact Urine Creatinine Urine Total Protein Salicylates 10/14/21 10/14/21 10/14/21 04:40 04:40 17:31 WBC RBC 2.81 L Hgb 8.3 L Hct 25.3 L RDW Plt Count Lymph % (Auto) [place] % (Auto) 14.4 H Lymph # (Auto) [place] # (Auto) Seg Neutrophils % Seg Neutrophils # PT INR ABG pO2 ABG Hemoglobin Oxyhemoglobin Sodium Potassium 3.5 L Chloride Carbon Dioxide BUN 47 H Creatinine 5.0 H Glucose POC Glucose 106 H Calcium ALT Ammonia Total Protein Albumin Stabg-9-Eqkclrntv Fkxdu-1-Tusnamcmy PEP Interpretation Triglycerides Cholesterol LDL Cholesterol Direct HDL Cholesterol PTH Intact Urine Creatinine Urine Total Protein Salicylates 10/16/21 16:02 WBC RBC Hgb Hct RDW Plt Count Lymph % (Auto) [place] % (Auto) Lymph # (Auto) [place] # (Auto) Seg Neutrophils % Seg Neutrophils # PT INR ABG pO2 ABG Hemoglobin Oxyhemoglobin Sodium Potassium Chloride Carbon Dioxide BUN Creatinine Glucose POC Glucose 119 H Calcium ALT Ammonia Total Protein Albumin Xrmik-1-Wjunksjwd Mzkph-6-Kewocqobl PEP Interpretation Triglycerides Cholesterol LDL Cholesterol Direct HDL Cholesterol PTH Intact Urine Creatinine Urine Total Protein Salicylates Allied health notes reviewed: nursing
--- NOTE | 2021-10-17 16:26 | Progress Note ---
Subjective Date of service: 10/17/21 Principal diagnosis: AMS; HARDIK; Severe hyperkalemia; Hypertension; CMOP; Mild leukocytosis Interval history: # Acute Kidney Injury/Kidney Failure: creatinine 18, BUN>200 with hyperkalemia, acidosis, likely uremic effects. Noted to have creatinine 1.2 earlier this year so suspect acute kidney injury - STAT HD started 10/06 for hyperkalemia, azotemia/uremia; s/p daily HD x3 days for now given uremia/azotemia and need to avoid disequilibrium - plan for MWF HD for ongoing solute/toxin management - renal ultrasound acutely WNL, no obstruction - urinalysis reviewed, check serologies to rule out GN injury, still pending - note PTH high, may have secondary to underlying CKD - strict Is/Os- not much urine output noted - assess for renal recovery as able - avoid nephrotoxins - hold diuretics, EMILIANO/ARB for now s/p perm cath--await outpatient hd arrangement # HTN: BP stable currently, per primary team due to HTN, Avoid ARB for now given hyperkalemia, HARDIK. Can restart once HARDIK improves or clearly CKD progression # Altered Mentation: unknown baseline # CVA: care per primary, neurology Subjective Interval history: No acute events noted, remains drowsy in bed Objective - Exam Narrative Exam: General appearance: no distress, frail EENT: ATNC Neck: Present: neck supple Respiratory: Clear to Ascultation, Normal Exam Heart: regular Gastrointestinal: Present: normoactive bowel sounds Integumentary: no rash, cool/clammy Neurologic: asterixis/tremulous, confused Objective - Vital Signs Vital signs: Vital Signs - 12hr 10/17/21 10/17/21 10/17/21 08:04 10:00 10:15 Temperature 98.9 F Pulse Rate 58 L 72 Respiratory 16 18 Rate Blood Pressure 139/87 139/78 O2 Sat by Pulse 97 Oximetry O2 Sat by Pulse Oximetry [ Anterior Bilateral] 10/17/21 10/17/21 10/17/21 10:30 10:45 11:00 Temperature Pulse Rate 66 68 67 Respiratory Rate Blood Pressure 121/67 121/75 125/73 O2 Sat by Pulse Oximetry O2 Sat by Pulse Oximetry [ Anterior Bilateral] 10/17/21 10/17/21 10/17/21 11:15 11:30 11:45 Temperature Pulse Rate 60 64 65 Respiratory Rate Blood Pressure 123/66 118/71 117/71 O2 Sat by Pulse Oximetry O2 Sat by Pulse Oximetry [ Anterior Bilateral] 10/17/21 10/17/21 10/17/21 12:00 12:15 12:30 Temperature Pulse Rate 66 67 67 Respiratory Rate Blood Pressure 122/73 121/71 136/80 O2 Sat by Pulse Oximetry O2 Sat by Pulse Oximetry [ Anterior Bilateral] 10/17/21 10/17/21 10/17/21 12:35 12:45 13:00 Temperature 98.2 F Pulse Rate 70 69 65 Respiratory 20 Rate Blood Pressure 143/79 132/80 133/81 O2 Sat by Pulse Oximetry O2 Sat by Pulse 100 Oximetry [ Anterior Bilateral] 10/17/21 10/17/21 13:15 13:30 Temperature 98.2 F Pulse Rate 70 71 Respiratory 18 Rate Blood Pressure 142/78 123/76 O2 Sat by Pulse Oximetry O2 Sat by Pulse 100 Oximetry [ Anterior Bilateral] - Lab 10/14/21 04:40 10/14/21 04:40 Most recent lab results ABG pH 7.425 pH Units (7.350-7.450) 10/09/21 13:45 ABG pCO2 35.1 mm Hg 10/09/21 13:45 ABG pO2 75.9 mm Hg (80.0-90.0) L 10/09/21 13:45 ABG HCO3 22.5 mmol/L (20.0-26.0) 10/09/21 13:45 ABG O2 Saturation 96.4 % (95.0-99.0) 10/09/21 13:45 Calcium 8.7 mg/dL (8.4-10.2) 10/14/21 04:40 Urine Creatinine 234.3 mg/dL (0.1-20.0) H 10/06/21 14:04 Urine Total Protein 28 mg/dL (5-11.8) H 10/06/21 14:04 Medications & Allergies - Medications Allergies/Adverse Reactions: Allergies No Known Allergies Allergy (Verified 05/09/21 13:32) Home Medications: Home Medications Medication Instructions Recorded Confirmed Last Taken Type Furosemide [Lasix TAB] 40 mg PO QDAY #30 tablet 05/10/21 10/08/21 Unknown Rx carvediloL [Coreg] 6.25 mg PO BID #60 tablet 05/11/21 10/08/21 Unknown Rx NIFEdipine [Nifedipine ER] 60 mg PO DAILY #30 tab 05/13/21 10/08/21 Unknown Rx Valsartan [Diovan] 160 mg PO QDAY #30 tablet 05/13/21 10/08/21 Unknown Rx Active Medications: Generic Name Dose Route Start Last Admin Trade Name Freq PRN Reason Stop Dose Admin Acetaminophen 650 mg 10/06/21 01:42 Acetaminophen 325 Mg Tab PO Q4H PRN Pain MILD(1-3)/Fever >100.5/MARROQUIN Aspirin 81 mg 10/08/21 10:00 10/17/21 09:23 Aspirin 81 Mg Tab Chew PO 81 mg QDAY FREDI Administration Atorvastatin Calcium 40 mg 10/06/21 22:00 10/16/21 21:14 Atorvastatin 40 Mg Tab PO 40 mg QHS FREDI Administration Bisacodyl 10 mg 10/06/21 01:42 Bisacodyl 10 Mg Rect Supp ME QDAY PRN Constipation Carvedilol 6.25 mg 10/07/21 10:00 10/17/21 09:23 Carvedilol 6.25 Mg Tab PO 6.25 mg BID FREDI Administration Dextrose 50 ml 10/06/21 01:42 Dextrose 50% In Water (25gm) 50 Ml Syringe IV Q30MIN PRN Hypoglycemia Protocol Famotidine 20 mg 10/07/21 10:00 10/17/21 09:23 Famotidine 20 Mg Tab PO 20 mg DAILY FREDI Administration Heparin Sodium (Porcine) 5,000 unit 10/06/21 14:00 10/17/21 14:22 Heparin 5,000 Unit/1 Ml Vial SUB-Q 5,000 unit Q8HR FREDI Administration Hydralazine HCl 10 mg 10/06/21 18:38 10/08/21 00:41 Hydralazine 20 Mg/1 Ml Inj IV 10 mg Q4HR PRN Administration Hypertension Magnesium Hydroxide 30 ml 10/06/21 01:42 Magnesium Hydroxide (Mom) Oral Liqd Udc PO Q4H PRN Constipation Metoclopramide HCl 2.5 mg 10/06/21 01:59 Metoclopramide 10 Mg/10 Ml Oral Liqd PO Q6H PRN Nausea And Vomiting Nifedipine 90 mg 10/09/21 10:00 10/17/21 09:23 Nifedipine Xl 90 Mg Tab PO 90 mg QDAY FREDI Administration Ondansetron HCl 4 mg 10/06/21 01:42 Ondansetron 4 Mg/2 Ml Inj IV Q8H PRN Nausea And Vomiting Promethazine HCl 25 mg 10/06/21 01:42 Promethazine 25 Mg Rect Supp ME Q6H PRN Nausea And Vomiting Sodium Chloride 10 ml 10/06/21 10:00 10/17/21 09:23 Sodium Chloride 0.9% 10 Ml Flush Syringe IV 10 ml BID FREDI Administration Sodium Chloride 10 ml 10/06/21 01:42 Sodium Chloride 0.9% 10 Ml Flush Syringe IV PRN PRN LINE FLUSH
[2021-10-17] MEDS ORDERED: EPOETIN ALFA-EPBX 10,000 UNIT/1 ML VIAL IV PRN (16:27)
[2021-10-18] MEDS: HEPARIN 5,000 UNIT/1 ML VIAL SUB-Q SCH ×3 (05:16→21:37)
[2021-10-18] MEDS: FAMOTIDINE 20 MG TAB PO SCH ×2 (08:44→10:00)
[2021-10-18] MEDS: carvediloL 6.25 MG TAB PO SCH ×3 (08:44→21:37)
[2021-10-18] MEDS: ASPIRIN 81 MG TAB CHEW PO SCH ×2 (08:44→10:00)
[2021-10-18] MEDS: NIFEdipine XL 90 MG TAB PO SCH ×2 (08:45→10:00)
--- NOTE | 2021-10-18 11:27 | Progress Note ---
Assessment and Plan # Acute Kidney Injury/Kidney Failure: Noted to have creatinine 1.2 earlier this year so suspect acute kidney injury - STAT HD started 10/06 for hyperkalemia, azotemia/uremia; s/p daily HD x3 days given uremia/azotemia - Continue MWF HD for ongoing solute/toxin management - renal ultrasound acutely WNL, no obstruction - urinalysis reviewed, f/u serologies to rule out GN injury, still pending - note PTH high, may have secondary to underlying CKD - strict Is/Os- not much urine output noted - assess for renal recovery as able - avoid nephrotoxins - hold diuretics, EMILIANO/ARB for now s/p perm cath--await outpatient hd arrangement # HTN: BP stable currently, per primary team due to HTN, Avoid ARB for now given hyperkalemia, HARDIK. Can restart once HARDIK improves or clearly CKD progression # Altered Mentation: unknown baseline # CVA: care per primary, neurology Subjective Date of service: 10/18/21 Principal diagnosis: AMS; HARDIK; Severe hyperkalemia; Hypertension; CMOP; Mild leukocytosis Interval history: Sitting up in bed. Eating pudding. Objective - Exam Narrative Exam: General appearance: no distress, frail EENT: ATNC Neck: Present: neck supple Respiratory: Clear to Ascultation, Normal Exam Heart: regular Gastrointestinal: Present: normoactive bowel sounds Integumentary: no rash, cool/clammy Neurologic: asterixis/tremulous, confused - Vital Signs Vital signs: Vital Signs - 12hr 10/18/21 10/18/21 10/18/21 03:52 08:17 08:44 Temperature 97.6 F Pulse Rate 69 73 73 Blood Pressure 109/64 133/71 133/71 O2 Sat by Pulse 99 100 Oximetry - Lab 10/14/21 04:40 10/14/21 04:40 Most recent lab results ABG pH 7.425 pH Units (7.350-7.450) 10/09/21 13:45 ABG pCO2 35.1 mm Hg 10/09/21 13:45 ABG pO2 75.9 mm Hg (80.0-90.0) L 10/09/21 13:45 ABG HCO3 22.5 mmol/L (20.0-26.0) 10/09/21 13:45 ABG O2 Saturation 96.4 % (95.0-99.0) 10/09/21 13:45 Calcium 8.7 mg/dL (8.4-10.2) 10/14/21 04:40 Urine Creatinine 234.3 mg/dL (0.1-20.0) H 10/06/21 14:04 Urine Total Protein 28 mg/dL (5-11.8) H 10/06/21 14:04 Medications & Allergies - Medications Allergies/Adverse Reactions: Allergies No Known Allergies Allergy (Verified 05/09/21 13:32) Home Medications: Home Medications Medication Instructions Recorded Confirmed Last Taken Type Furosemide [Lasix TAB] 40 mg PO QDAY #30 tablet 05/10/21 10/08/21 Unknown Rx carvediloL [Coreg] 6.25 mg PO BID #60 tablet 05/11/21 10/08/21 Unknown Rx NIFEdipine [Nifedipine ER] 60 mg PO DAILY #30 tab 05/13/21 10/08/21 Unknown Rx Valsartan [Diovan] 160 mg PO QDAY #30 tablet 05/13/21 10/08/21 Unknown Rx Active Medications: Generic Name Dose Route Start Last Admin Trade Name Freq PRN Reason Stop Dose Admin Acetaminophen 650 mg 10/06/21 01:42 Acetaminophen 325 Mg Tab PO Q4H PRN Pain MILD(1-3)/Fever >100.5/MARROQUIN Aspirin 81 mg 10/08/21 10:00 10/18/21 08:44 Aspirin 81 Mg Tab Chew PO 81 mg QDAY FREDI Administration Atorvastatin Calcium 40 mg 10/06/21 22:00 10/17/21 21:07 Atorvastatin 40 Mg Tab PO 40 mg QHS FREDI Administration Bisacodyl 10 mg 10/06/21 01:42 Bisacodyl 10 Mg Rect Supp HI QDAY PRN Constipation Carvedilol 6.25 mg 10/07/21 10:00 10/18/21 08:44 Carvedilol 6.25 Mg Tab PO 6.25 mg BID FREDI Administration Dextrose 50 ml 10/06/21 01:42 Dextrose 50% In Water (25gm) 50 Ml Syringe IV Q30MIN PRN Hypoglycemia Protocol Epoetin Cm-epbx 10,000 unit 10/17/21 16:27 Epoetin Cm-Epbx 10,000 Unit/1 Ml Vial IV DESHAWN PRN hemodialysis Famotidine 20 mg 10/07/21 10:00 10/18/21 08:44 Famotidine 20 Mg Tab PO 20 mg DAILY FREDI Administration Heparin Sodium (Porcine) 5,000 unit 10/06/21 14:00 10/18/21 05:16 Heparin 5,000 Unit/1 Ml Vial SUB-Q Not Given Q8HR FREDI Hydralazine HCl 10 mg 10/06/21 18:38 10/08/21 00:41 Hydralazine 20 Mg/1 Ml Inj IV 10 mg Q4HR PRN Administration Hypertension Magnesium Hydroxide 30 ml 10/06/21 01:42 Magnesium Hydroxide (Mom) Oral Liqd Udc PO Q4H PRN Constipation Metoclopramide HCl 2.5 mg 10/06/21 01:59 Metoclopramide 10 Mg/10 Ml Oral Liqd PO Q6H PRN Nausea And Vomiting Nifedipine 90 mg 10/09/21 10:00 10/18/21 08:45 Nifedipine Xl 90 Mg Tab PO 90 mg QDAY FREDI Administration Ondansetron HCl 4 mg 10/06/21 01:42 Ondansetron 4 Mg/2 Ml Inj IV Q8H PRN Nausea And Vomiting Promethazine HCl 25 mg 10/06/21 01:42 Promethazine 25 Mg Rect Supp HI Q6H PRN Nausea And Vomiting Sodium Chloride 10 ml 10/06/21 10:00 10/18/21 08:53 Sodium Chloride 0.9% 10 Ml Flush Syringe IV 10 ml BID FREDI Administration Sodium Chloride 10 ml 10/06/21 01:42 Sodium Chloride 0.9% 10 Ml Flush Syringe IV PRN PRN LINE FLUSH
--- NOTE | 2021-10-18 18:37 | Progress Note ---
Assessment and Plan 10/06: Remains altered but stable on 2L NC, VSS. Still hyperkalemic this am, HD in progress at the bedside. Repeat BMP a hour after HD. CT head/Brain noted. Continue CVA workup, MRI brain, US carotid, and 2D echo pending. Neurology consulted. Patient is hypoglycemic this am, s/p IV insulin for hyperkalemia, continue BG check and hypoglycemic protocol. Will order diet if patient pass bedside swallow. PT/OT/Speech consulted. Left big toe ulcer noted. Per patient's daughter, patient is following with Vascular Surgery outpatient, revascula rization was performed in the [facility] in the past and they were talking of possibly amputating that left toe. No evidence of any infectious process at this time and patient is currently hemodynamicaly stable. Will get wound care for wound management. Follow up with Vascular surgery outpatient for further management. 10/07: Increased confusion and agitation required wrist restraints overnight for safety. Patient is still confused this am, but calm and cooperative. MRI brain p ending. Patient tolerated HD yesterday. Hypertensive this am, resumed home meds and continue PRN antihypertensives. Continue HD per Nephro. Patient is stable for transfer to Telemetry. 10/09/2021; patient is slightly agitated requiring restraints Awaiting return to SNF when medically stable Nephrology initiated hemodialysis, HD as needed If renal decides that patient needs long-term hemodialysis Case management will assist with outpatient HD chair scheduling 10/11/2021; patient is receiving hemodialysis Once nephrology confirms long-term HD, check with case management for outpatient HD placement Patient continues to be confused requiring restraints 10/12/2021; patient is more alert and awake responding appropriately Continue current management, if he continues to be manageable, will try to DC restraints 10/13/2021; today patient is more alert and awake,, CM assisting with outpatient HD placement Hemodialysis per schedule MWF, possible discharge in [facility] facility 2 days if stable 10/14/2021; patient had permacath followed by hemodialysis today tolerated well, Case management assisting with outpatient HD placement 10/15/2021; patient is comfortable no new complaints Awaiting placement/return to [facility] facility 10/16/2021; awaiting to go back to [facility] Awaiting authorization 10/17/2021; patient is medically stable awaiting Placement/return to [facility] pending authorization. 10/18/21: Patient waiting for outpatient HD set up. Waiting authorization for re turn back to [facility] facility. Continue to follow, patient denies any acute issue today. A/P #Acute Metabolic Encephalopathy: Resolved (we will continue close 20 flexion 120 Multifactorial, acute stroke , acute kidney injury , electrolyte abnormalities treat the underlying cause, Supportive care #Acute CVA: Left thalamic infarction Continue aspirin and statin Physical therapy occupational therapy Recommended subacute rehab Awaiting placement/return to [facility] facility MRI brain:extensive chronic and age-related changes punctate focus of increased diffusion weighted signal in the left thalamic area Evidence of recent or acute left thalamic infarction Neurology evaluated once on admission Awaiting placement/return to [facility]/awaiting authorization Acute on Chronic Kidney Disease; transition to end-stage renal disease Nephrology evaluated, initiated hemodialysis on 10/06/21 Patient had permacath placement on 10/14/2021 HD per schedule, MWF, outpatient HD placement in process per CM #Severe Hyperkalemia- resolved -Initial potassium was 7.1, managed appropriately Currently hemodialysis per schedule #Hypertension; moderate control Continue current antihypertensives As needed hydralazine #Big Toe Ulcer, Left/wound dressing. Elevate the limb Supportive care - Left big toe ulcer noted - Per patient's daughter, patient is following with Vascular Surgery outpatient, revascularization was performed in the [facility] in the past and they were considering the possibility of amputating that left toe. - No evidence of any infectious process at this time and patient is currently hemodynamicaly stable - Will get wound care for wound management - Follow up with Vascular Surgery outpatient for further management. #Hypoglycemia-resolved Closely monitor blood sugars Adjust management as needed Closely monitor blood sugars Hypoglycemia resolved #GI/DVT Prophylaxis - PPI- Pepcid - Heparin SubQ - SCDs to bilateral lower extremities while in bed #Advance Care Planning - Disease education data, care plan, diagnoses, and prognosis were discussed with patient's daughter. Patient is a FULL code. Patient's daughter acknowledged understanding and agreement with current care plan. Closely monitor the patient and adjust the management as needed Plan of care reviewed with the patient and his nurse Discharge planning; PT recommended subacute rehab versus [facility] facility Patient would return to [facility] facility when medically stable Awaiting authorization Possible discharge in 1 to 2 days if stable Plan of care reviewed with the patient. His nurse, case management s/p permacath placement followed by HD today CM processing outpatient HD placement. Subjective Date of service: 10/18/21 Principal diagnosis: AMS; HARDIK; Severe hyperkalemia; Hypertension; CMOP; Mild leukocytosis Interval history: Patient seen and examined. Medical records and medication list reviewed. No acute event overnight noted by the RN. Patient denies any chest pain or difficulty breathing. Patient is tolerating diet. Discussed plan of care at bedside with patient. Pending outpatient hemodialysis set up Objective - Exam Narrative Exam: GENERAL: well-developed malnourished -Swiss male lying on bed appeared to be in no discomfort. HEENT: Normocephalic. Atraumatic. No conjunctival congestion or icterus. Patient has moist mucous membranes. NECK: Supple. Trachea midline. CHEST/LUNGS: Clear to auscultated bilaterally, breathing nonlabored. No wheezes crackles or rhonchi. HEART/CARDIOVASCULAR: Regular in rate and rhythm. S1 and S2 positive. ABDOMEN: Abdomen is soft, nontender. Patient has normal bowel sounds. SKIN: There is no rash. Warm and dry. NEURO: No focal motor deficit. Follows command. MUSCULOSKELETAL: No joint effusion or tenderness. EXTRIMITY: No edema, no cyanosis or clubbing. PSYCH: Cooperative. - Constitutional Vitals: Vital Signs - 12hr 10/18/21 10/18/21 10/18/21 08:17 08:44 10:00 Temperature 97.6 F Pulse Rate 73 73 69 Blood Pressure 133/71 133/71 O2 Sat by Pulse 100 Oximetry 10/18/21 10/18/21 10/18/21 12:00 12:18 15:48 Temperature 98.0 F 98.3 F Pulse Rate 63 65 65 Blood Pressure 98/52 100/55 O2 Sat by Pulse 97 100 Oximetry - Labs CBC & Chem 7: 10/14/21 04:40 10/20/21 10:59 Labs: Abnormal lab results 10/18/21 Range/Units 16:49 POC Glucose 117 H (70-105) mg/dL
--- NOTE | 2021-10-19 08:58 | Progress Note ---
Assessment and Plan 71-year-old male resident of [facility] with known history of hypertension , CHF sent to the emergency room for evaluation of changes in mental status since yesterday. Patient was said not to be his normal self over the past 24 hours. Patient unable to give any good history at this time most of the information was obtained from the ER staff. Work-up in the emergency room , labs were significant for leukocytosis of 11.3, potassium of 7.7, BUN to 216 and creatinine of 18.1. EKG shows some peaked T waves. CT scan of the head consistent with features of microvascular ischemia bilateral lacunar infarcts within the basal ganglia and left central semiovale. Area of hypoattenuation involving the right temporal lobe. Subacute ischemia is not excluded. MRI recommended for further evaluation. Teleneurology consulted by the ER physician and recommendation was to have CVA work-up. Supervisor Throwing Department was also consulted regarding lab findings and EKG findings and admitted dialysis was recommended. Patient receiving hemodialysis.No change in patients clinical condition. Patient awake. on room air . O2 saturation 100%. No acute respiratory distress. Still confused. Patient afebrile. No leukocytosis. Blood pressure 140/78, Pulse 57, Respirations 18. Chest ray done 10/06/21 reported Mild bibasilar linear atelectatic change. Mild chronic changes. No definite pneumonic infiltrates or effusions. No pneumothorax. Patient is on S/C Heparin and famotidine. - Patient Problems (1) CVA (cerebral vascular accident) Current Visit: Yes Status: Acute Plan to address problem: Management as per primary care and neurology. (2) Altered mental status Current Visit: Yes Status: Acute Plan to address problem: Management as per primary care. (3) HARDIK (acute kidney injury) Current Visit: Yes Status: Acute Plan to address problem: Management as per nephrology. (4) Bilateral lower leg cellulitis Current Visit: No Status: Acute Plan to address problem: Recommend to consult infectious diseases. Subjective Date of service: 10/19/21 Principal diagnosis: AMS; HARDIK; Severe hyperkalemia; Hypertension; CMOP; Mild leukocytosis Interval history: 71-year-old male resident of [facility] with known history of hypertension , CHF sent to the emergency room for evaluation of changes in mental status since yesterday. Patient was said not to be his normal self over the past 24 hours. Patient unable to give any good history at this time most of the information was obtained from the ER staff. Work-up in the emergency room , labs were significant for leukocytosis of 11.3, potassium of 7.7, BUN to 216 and creatinine of 18.1. EKG shows some peaked T waves. CT scan of the head consistent with features of microvascular ischemia bilateral lacunar infarcts within the basal ganglia and left central semiovale. Area of hypoattenuation involving the right temporal lobe. Subacute ischemia is not excluded. MRI recommended for further evaluation. Teleneurology consulted by the ER physician and recommendation was to have CVA work-up. Supervisor Throwing Department was also consulted regarding lab findings and EKG findings and admitted dialysis was recommended. Patient receiving hemodialysis.No change in patients clinical condition. Patient awake. on room air . O2 saturation 100%. No acute respiratory distress. Still confused. Patient afebrile. No leukocytosis. Blood pressure 140/78, Pulse 57, Respirations 18. Chest ray done 10/06/21 reported Mild bibasilar linear atelectatic change. Mild chronic changes. No definite pneumonic infiltrates or effusions. No pneumothorax. Patient is on S/C Heparin and famotidine. Objective Vital Signs - 12hr 10/18/21 10/18/21 10/19/21 21:37 22:00 08:47 Temperature 98.4 F Pulse Rate 65 Respiratory 16 Rate Blood Pressure 126/75 135/72 O2 Sat by Pulse 99 100 Oximetry Constitutional: no acute distress, alert, other (still confused.) Eyes: non-icteric ENT: oropharynx moist Neck: supple, no lymphadenopathy Effort: normal Ascultation: Bilateral: diminished breath sounds Percussion: Bilateral: not dull Cardiovascular: regular rate and rhythm Gastrointestinal: normoactive bowel sounds, soft, non-tender, non-distended Integumentary: cellulitis Extremities: other (Stasis dermatitis.) Neurologic: non-focal exam (grossly), pupils equal and round, motor strength normal and Psychiatric: other (Confused. Not oriented.) CBC and BMP: 10/14/21 04:40 10/20/21 10:59 ABG, PT/INR, D-dimer: ABG ABG pH 7.425 pH Units (7.350-7.450) 10/09/21 13:45 ABG pCO2 35.1 mm Hg 10/09/21 13:45 ABG pO2 75.9 mm Hg (80.0-90.0) L 10/09/21 13:45 ABG O2 Saturation 96.4 % (95.0-99.0) 10/09/21 13:45 PT/INR, D-dimer PT 16.6 Sec. (12.2-14.9) H 10/05/21 21:39 INR 1.20 (0.87-1.13) H 10/05/21 21:39 Abnormal lab findings: Abnormal Labs 10/05/21 10/05/21 10/05/21 21:39 21:39 22:41 WBC 11.3 H RBC Hgb Hct RDW 15.3 H Plt Count Lymph % (Auto) 7.6 L R[place]y % (Auto) 7.7 H Lymph # (Auto) 0.9 L [place] # (Auto) 0.9 H Seg Neutrophils % 83.7 H Seg Neutrophils # 9.5 H PT 16.6 H INR 1.20 H ABG pO2 ABG Hemoglobin Oxyhemoglobin Sodium Potassium Chloride Carbon Dioxide BUN Creatinine Glucose POC Glucose Calcium ALT Ammonia Total Protein Albumin Gpwxu-8-Lbzriwkdd Ynjav-7-Tfuiysvdb PEP Interpretation Triglycerides Cholesterol LDL Cholesterol Direct HDL Cholesterol PTH Intact Urine Creatinine Urine Total Protein Salicylates < 0.3 L 10/05/21 10/05/21 10/06/21 22:41 22:41 04:21 WBC RBC Hgb Hct RDW Plt Count Lymph % (Auto) R[place]y % (Auto) Lymph # (Auto) [place]y # (Auto) Seg Neutrophils % Seg Neutrophils # PT INR ABG pO2 ABG Hemoglobin Oxyhemoglobin Sodium Potassium 7.7 H* 6.1 H* D Chloride Carbon Dioxide 19 L BUN 216 H 224 H Creatinine 18.1 H 19.7 H Glucose 117 H 64 L POC Glucose Calcium 11.0 H ALT < 5 L Ammonia 14.0 L Total Protein 8.3 H Albumin Rhajg-0-Hhetptmjk Aoiec-1-Rfgmdzzgh PEP Interpretation Triglycerides Cholesterol LDL Cholesterol Direct HDL Cholesterol PTH Intact Urine Creatinine Urine Total Protein Salicylates 10/06/21 10/06/21 10/06/21 04:21 14:04 17:30 WBC RBC Hgb Hct RDW Plt Count Lymph % (Auto) R[place]y % (Auto) Lymph # (Auto) [place]y # (Auto) Seg Neutrophils % Seg Neutrophils # PT INR ABG pO2 ABG Hemoglobin Oxyhemoglobin Sodium Potassium Chloride Carbon Dioxide BUN 131 H Creatinine 12.7 H Glucose 157 H POC Glucose Calcium ALT Ammonia Total Protein Albumin Cibnq-4-Xkgjqkmtd Dimlk-1-Xbahiyxzk PEP Interpretation Triglycerides 382 H Cholesterol 273 H LDL Cholesterol Direct 151 H HDL Cholesterol 27 L PTH Intact Urine Creatinine 234.3 H Urine Total Protein 28 H Salicylates 10/07/21 10/07/21 10/07/21 05:14 05:14 05:14 WBC RBC 3.37 L Hgb 10.0 L Hct 30.1 L D RDW Plt Count 117 L Lymph % (Auto) 10.4 L Ripley % (Auto) 7.9 H Lymph # (Auto) 0.7 L [place] # (Auto) Seg Neutrophils % 80.2 H Seg Neutrophils # PT INR ABG pO2 ABG Hemoglobin Oxyhemoglobin Sodium Potassium Chloride Carbon Dioxide BUN 123 H Creatinine 10.9 H Glucose 119 H POC Glucose Calcium ALT Ammonia Total Protein Albumin Gzuxo-5-Zrxtyesfv Krtoh-1-Mnvmvxjmf PEP Interpretation Triglycerides Cholesterol LDL Cholesterol Direct HDL Cholesterol PTH Intact 333.5 H Urine Creatinine Urine Total Protein Salicylates 10/07/21 10/07/21 10/08/21 05:14 21:43 04:56 WBC RBC 3.59 L Hgb 10.4 L Hct 32.2 L RDW Plt Count 116 L Lymph % (Auto) Ripley % (Auto) Lymph # (Auto) [place]y # (Auto) Seg Neutrophils % Seg Neutrophils # PT INR ABG pO2 ABG Hemoglobin Oxyhemoglobin Sodium Potassium Chloride Carbon Dioxide BUN Creatinine Glucose POC Glucose 144 H Calcium ALT Ammonia Total Protein Albumin 3.7 L Pcqad-0-Ckxjgeaye 0.4 H Ypqko-5-Bddzcapvq 1.0 H PEP Interpretation see below H Triglycerides Cholesterol LDL Cholesterol Direct HDL Cholesterol PTH Intact Urine Creatinine Urine Total Protein Salicylates 10/08/21 10/08/21 10/08/21 04:56 11:22 15:36 WBC RBC Hgb Hct RDW Plt Count Lymph % (Auto) Ripley % (Auto) Lymph # (Auto) [place]y # (Auto) Seg Neutrophils % Seg Neutrophils # PT INR ABG pO2 ABG Hemoglobin Oxyhemoglobin Sodium 147 H Potassium Chloride 109.8 H Carbon Dioxide 20 L BUN 123 H Creatinine 9.7 H Glucose 110 H POC Glucose 145 H 139 H Calcium ALT Ammonia Total Protein Albumin Ggfjz-0-Qbgncoayb Ccqyc-1-Iqkrmjrry PEP Interpretation Triglycerides Cholesterol LDL Cholesterol Direct HDL Cholesterol PTH Intact Urine Creatinine Urine Total Protein Salicylates 10/09/21 10/09/21 10/09/21 12:36 13:45 18:01 WBC RBC Hgb Hct RDW Plt Count Lymph % (Auto) Ripley % (Auto) Lymph # (Auto) [place]ipley # (Auto) Seg Neutrophils % Seg Neutrophils # PT INR ABG pO2 75.9 L ABG Hemoglobin 10.8 L Oxyhemoglobin 94.8 L Sodium Potassium Chloride Carbon Dioxide BUN Creatinine Glucose POC Glucose 121 H 143 H Calcium ALT Ammonia Total Protein Albumin Wjwlj-0-Gqoakexdp Yqxar-7-Bwjxcwymy PEP Interpretation Triglycerides Cholesterol LDL Cholesterol Direct HDL Cholesterol PTH Intact Urine Creatinine Urine Total Protein Salicylates 10/10/21 10/10/21 10/11/21 00:16 05:09 05:13 WBC RBC Hgb Hct RDW Plt Count Lymph % (Auto) Ripley % (Auto) Lymph # (Auto) [place]y # (Auto) Seg Neutrophils % Seg Neutrophils # PT INR ABG pO2 ABG Hemoglobin Oxyhemoglobin Sodium 147 H Potassium Chloride 109.0 H Carbon Dioxide BUN 103 H 45 H Creatinine 6.8 H 4.6 H Glucose 108 H POC Glucose 108 H Calcium ALT Ammonia Total Protein Albumin Ecyxj-5-Wpijqobfo Zbpnd-0-Jkbdmrntb PEP Interpretation Triglycerides Cholesterol LDL Cholesterol Direct HDL Cholesterol PTH Intact Urine Creatinine Urine Total Protein Salicylates 10/12/21 10/12/21 10/13/21 04:50 16:31 00:01 WBC RBC Hgb Hct RDW Plt Count Lymph % (Auto) Ripley % (Auto) Lymph # (Auto) [place]y # (Auto) Seg Neutrophils % Seg Neutrophils # PT INR ABG pO2 ABG Hemoglobin Oxyhemoglobin Sodium Potassium Chloride Carbon Dioxide BUN 52 H Creatinine 4.9 H Glucose POC Glucose 117 H 111 H Calcium ALT Ammonia Total Protein Albumin Tmjyw-0-Azqkjrczg Dcnyl-9-Rnigxuccf PEP Interpretation Triglycerides Cholesterol LDL Cholesterol Direct HDL Cholesterol PTH Intact Urine Creatinine Urine Total Protein Salicylates 10/13/21 10/13/21 10/13/21 12:30 18:27 23:30 WBC RBC Hgb Hct RDW Plt Count Lymph % (Auto) [place]y % (Auto) Lymph # (Auto) [place]y # (Auto) Seg Neutrophils % Seg Neutrophils # PT INR ABG pO2 ABG Hemoglobin Oxyhemoglobin Sodium Potassium Chloride Carbon Dioxide BUN Creatinine Glucose POC Glucose 116 H 133 H 109 H Calcium ALT Ammonia Total Protein Albumin Upehz-6-Lfapsdypj Cpxlu-2-Uiwgrszos PEP Interpretation Triglycerides Cholesterol LDL Cholesterol Direct HDL Cholesterol PTH Intact Urine Creatinine Urine Total Protein Salicylates 10/14/21 10/14/21 10/14/21 04:40 04:40 17:31 WBC RBC 2.81 L Hgb 8.3 L Hct 25.3 L RDW Plt Count Lymph % (Auto) Ripley % (Auto) 14.4 H Lymph # (Auto) [place]ipley # (Auto) Seg Neutrophils % Seg Neutrophils # PT INR ABG pO2 ABG Hemoglobin Oxyhemoglobin Sodium Potassium 3.5 L Chloride Carbon Dioxide BUN 47 H Creatinine 5.0 H Glucose POC Glucose 106 H Calcium ALT Ammonia Total Protein Albumin Hcaut-0-Ajcrvvctw Czteq-5-Wziemyxph PEP Interpretation Triglycerides Cholesterol LDL Cholesterol Direct HDL Cholesterol PTH Intact Urine Creatinine Urine Total Protein Salicylates 10/16/21 10/18/21 10/18/21 16:02 16:49 21:46 WBC RBC Hgb Hct RDW Plt Count Lymph % (Auto) Ripley % (Auto) Lymph # (Auto) [place]ipley # (Auto) Seg Neutrophils % Seg Neutrophils # PT INR ABG pO2 ABG Hemoglobin Oxyhemoglobin Sodium Potassium Chloride Carbon Dioxide BUN Creatinine Glucose POC Glucose 119 H 117 H 116 H Calcium ALT Ammonia Total Protein Albumin Goiww-2-Gnpbnvuae Jqhcu-0-Pyuryulbx PEP Interpretation Triglycerides Cholesterol LDL Cholesterol Direct HDL Cholesterol PTH Intact Urine Creatinine Urine Total Protein Salicylates Allied health notes reviewed: nursing
[2021-10-19] MEDS: NIFEdipine XL 90 MG TAB PO SCH (10:24)
[2021-10-19] MEDS: FAMOTIDINE 20 MG TAB PO SCH (10:24)
[2021-10-19] MEDS: ASPIRIN 81 MG TAB CHEW PO SCH (10:24)
[2021-10-19] MEDS: carvediloL 6.25 MG TAB PO SCH (10:24)
[2021-10-19] MEDS: HEPARIN 5,000 UNIT/1 ML VIAL SUB-Q SCH ×2 (10:25→16:18)
--- NOTE | 2021-10-19 15:59 | Progress Note ---
Assessment and Plan # Acute Kidney Injury/Kidney Failure: Noted to have creatinine 1.2 earlier this year so suspect acute kidney injury - STAT HD started 10/06 for hyperkalemia, azotemia/uremia; s/p daily HD x3 days given uremia/azotemia - Continue MWF HD for ongoing solute/toxin management - renal ultrasound acutely WNL, no obstruction - urinalysis reviewed, f/u serologies to rule out GN injury, still pending - note PTH high, may have secondary to underlying CKD - strict Is/Os- not much urine output noted - assess for renal recovery as able - avoid nephrotoxins - hold diuretics, EMILIANO/ARB for now s/p perm cath--await outpatient hd arrangement # HTN: BP stable currently, per primary team due to HTN, Avoid ARB for now given hyperkalemia, HARDIK. Can restart once HARDIK improves or clearly CKD progression # Altered Mentation: unknown baseline # CVA: care per primary, neurology Subjective Date of service: 10/19/21 Principal diagnosis: AMS; HARDIK; Severe hyperkalemia; Hypertension; CMOP; Mild leukocytosis Interval history: Seen during HD. Objective - Exam Narrative Exam: General appearance: no distress, frail EENT: ATNC Neck: Present: neck supple Respiratory: Clear to Ascultation, Normal Exam Heart: regular Gastrointestinal: Present: normoactive bowel sounds Integumentary: no rash, cool/clammy Neurologic: asterixis/tremulous, confused - Vital Signs Vital signs: Vital Signs - 12hr 10/19/21 08:47 Temperature 98.4 F Pulse Rate 65 Respiratory 16 Rate Blood Pressure 135/72 O2 Sat by Pulse 100 Oximetry - Lab 10/14/21 04:40 10/14/21 04:40 Most recent lab results ABG pH 7.425 pH Units (7.350-7.450) 10/09/21 13:45 ABG pCO2 35.1 mm Hg 10/09/21 13:45 ABG pO2 75.9 mm Hg (80.0-90.0) L 10/09/21 13:45 ABG HCO3 22.5 mmol/L (20.0-26.0) 10/09/21 13:45 ABG O2 Saturation 96.4 % (95.0-99.0) 10/09/21 13:45 Calcium 8.7 mg/dL (8.4-10.2) 10/14/21 04:40 Urine Creatinine 234.3 mg/dL (0.1-20.0) H 10/06/21 14:04 Urine Total Protein 28 mg/dL (5-11.8) H 10/06/21 14:04 Medications & Allergies - Medications Allergies/Adverse Reactions: Allergies No Known Allergies Allergy (Verified 05/09/21 13:32) Home Medications: Home Medications Medication Instructions Recorded Confirmed Last Taken Type Furosemide [Lasix TAB] 40 mg PO QDAY #30 tablet 05/10/21 10/08/21 Unknown Rx carvediloL [Coreg] 6.25 mg PO BID #60 tablet 05/11/21 10/08/21 Unknown Rx NIFEdipine [Nifedipine ER] 60 mg PO DAILY #30 tab 05/13/21 10/08/21 Unknown Rx Valsartan [Diovan] 160 mg PO QDAY #30 tablet 05/13/21 10/08/21 Unknown Rx Active Medications: Generic Name Dose Route Start Last Admin Trade Name Freq PRN Reason Stop Dose Admin Acetaminophen 650 mg 10/06/21 01:42 Acetaminophen 325 Mg Tab PO Q4H PRN Pain MILD(1-3)/Fever >100.5/MARROQUIN Aspirin 81 mg 10/08/21 10:00 10/19/21 10:24 Aspirin 81 Mg Tab Chew PO 81 mg QDAY FREDI Administration Atorvastatin Calcium 40 mg 10/06/21 22:00 10/18/21 21:37 Atorvastatin 40 Mg Tab PO 40 mg QHS FREDI Administration Bisacodyl 10 mg 10/06/21 01:42 Bisacodyl 10 Mg Rect Supp NM QDAY PRN Constipation Carvedilol 6.25 mg 10/07/21 10:00 10/19/21 10:24 Carvedilol 6.25 Mg Tab PO 6.25 mg BID FREDI Administration Dextrose 50 ml 10/06/21 01:42 Dextrose 50% In Water (25gm) 50 Ml Syringe IV Q30MIN PRN Hypoglycemia Protocol Epoetin Cm-epbx 10,000 unit 10/17/21 16:27 Epoetin Cm-Epbx 10,000 Unit/1 Ml Vial IV DESHAWN PRN hemodialysis Famotidine 20 mg 10/07/21 10:00 10/19/21 10:24 Famotidine 20 Mg Tab PO 20 mg DAILY FREDI Administration Heparin Sodium (Porcine) 5,000 unit 10/06/21 14:00 10/19/21 10:25 Heparin 5,000 Unit/1 Ml Vial SUB-Q Not Given Q8HR FREDI Hydralazine HCl 10 mg 10/06/21 18:38 10/08/21 00:41 Hydralazine 20 Mg/1 Ml Inj IV 10 mg Q4HR PRN Administration Hypertension Magnesium Hydroxide 30 ml 10/06/21 01:42 Magnesium Hydroxide (Mom) Oral Liqd Udc PO Q4H PRN Constipation Metoclopramide HCl 2.5 mg 10/06/21 01:59 Metoclopramide 10 Mg/10 Ml Oral Liqd PO Q6H PRN Nausea And Vomiting Nifedipine 90 mg 10/09/21 10:00 10/19/21 10:24 Nifedipine Xl 90 Mg Tab PO 90 mg QDAY FREDI Administration Ondansetron HCl 4 mg 10/06/21 01:42 Ondansetron 4 Mg/2 Ml Inj IV Q8H PRN Nausea And Vomiting Promethazine HCl 25 mg 10/06/21 01:42 Promethazine 25 Mg Rect Supp NM Q6H PRN Nausea And Vomiting Sodium Chloride 10 ml 10/06/21 10:00 10/19/21 10:24 Sodium Chloride 0.9% 10 Ml Flush Syringe IV 10 ml BID FREDI Administration Sodium Chloride 10 ml 10/06/21 01:42 Sodium Chloride 0.9% 10 Ml Flush Syringe IV PRN PRN LINE FLUSH
--- NOTE | 2021-10-19 16:16 | Progress Note ---
Assessment and Plan 10/06: Remains altered but stable on 2L NC, VSS. Still hyperkalemic this am, HD in progress at the bedside. Repeat BMP a hour after HD. CT head/Brain noted. Continue CVA workup, MRI brain, US carotid, and 2D echo pending. Neurology consulted. Patient is hypoglycemic this am, s/p IV insulin for hyperkalemia, continue BG check and hypoglycemic protocol. Will order diet if patient pass bedside swallow. PT/OT/Speech consulted. Left big toe ulcer noted. Per patient's daughter, patient is following with Vascular Surgery outpatient, revascula rization was performed in the [facility] in the past and they were talking of possibly amputating that left toe. No evidence of any infectious process at this time and patient is currently hemodynamicaly stable. Will get wound care for wound management. Follow up with Vascular surgery outpatient for further management. 10/07: Increased confusion and agitation required wrist restraints overnight for safety. Patient is still confused this am, but calm and cooperative. MRI brain p ending. Patient tolerated HD yesterday. Hypertensive this am, resumed home meds and continue PRN antihypertensives. Continue HD per Nephro. Patient is stable for transfer to Telemetry. 10/09/2021; patient is slightly agitated requiring restraints Awaiting return to SNF when medically stable Nephrology initiated hemodialysis, HD as needed If renal decides that patient needs long-term hemodialysis Case management will assist with outpatient HD chair scheduling 10/11/2021; patient is receiving hemodialysis Once nephrology confirms long-term HD, check with case management for outpatient HD placement Patient continues to be confused requiring restraints 10/12/2021; patient is more alert and awake responding appropriately Continue current management, if he continues to be manageable, will try to DC restraints 10/13/2021; today patient is more alert and awake,, CM assisting with outpatient HD placement Hemodialysis per schedule MWF, possible discharge in [facility] facility 2 days if stable 10/14/2021; patient had permacath followed by hemodialysis today tolerated well, Case management assisting with outpatient HD placement 10/15/2021; patient is comfortable no new complaints Awaiting placement/return to [facility] facility 10/16/2021; awaiting to go back to [facility] Awaiting authorization 10/17/2021; patient is medically stable awaiting Placement/return to [facility] pending authorization. 10/18/21: Patient waiting for outpatient HD set up. Waiting authorization for re turn back to [facility] nursing facility. Continue to follow, patient denies any acute issue today. 10/19/21; pending outpatient HD set up. Patient may going to be discharged home with home health and family supervision. Need inpatient care for continuous need for hemodialysis. We will continue to follow. A/P #Acute Metabolic Encephalopathy: Resolved (we will continue close 20 flexion 120 Multifactorial, acute stroke , acute kidney injury , electrolyte abnormalities treat the underlying cause, Supportive care #Acute CVA: Left thalamic infarction Continue aspirin and statin Physical therapy occupational therapy Recommended subacute rehab Awaiting placement/return to [facility] facility MRI brain:extensive chronic and age-related changes punctate focus of increased diffusion weighted signal in the left thalamic area Evidence of recent or acute left thalamic infarction Neurology evaluated once on admission Awaiting placement/return to [facility]/awaiting authorization Acute on Chronic Kidney Disease; transition to end-stage renal disease Nephrology evaluated, initiated hemodialysis on 10/06/21 Patient had permacath placement on 10/14/2021 HD per schedule, MWF, outpatient HD placement in process per CM #Severe Hyperkalemia- resolved -Initial potassium was 7.1, managed appropriately Currently hemodialysis per schedule #Hypertension; moderate control Continue current antihypertensives As needed hydralazine #Big Toe Ulcer, Left/wound dressing. Elevate the limb Supportive care - Left big toe ulcer noted - Per patient's daughter, patient is following with Vascular Surgery outpatient, revascularization was performed in the [facility] in the past and they were considering the possibility of amputating that left toe. - No evidence of any infectious process at this time and patient is currently hemodynamicaly stable - Will get wound care for wound management - Follow up with Vascular Surgery outpatient for further management. #Hypoglycemia-resolved Closely monitor blood sugars Adjust management as needed Closely monitor blood sugars Hypoglycemia resolved #GI/DVT Prophylaxis - PPI- Pepcid - Heparin SubQ - SCDs to bilateral lower extremities while in bed #Advance Care Planning - Disease education data, care plan, diagnoses, and prognosis were discussed with patient's daughter. Patient is a FULL code. Patient's daughter acknowledged understanding and agreement with current care plan. Closely monitor the patient and adjust the management as needed Plan of care reviewed with the patient and his nurse Discharge planning; PT recommended subacute rehab versus [facility] Patient would return to [facility] facility when medically stable Awaiting authorization Possible discharge in 1 to 2 days if stable Plan of care reviewed with the patient. His nurse, case management s/p permacath placement followed by HD today CM processing outpatient HD placement. Subjective Date of service: 10/19/21 Principal diagnosis: AMS; HARDIK; Severe hyperkalemia; Hypertension; CMOP; Mild leukocytosis Interval history: Patient seen and examined. Medical records and medication list reviewed. No acute event overnight noted by the RN. Patient denies any chest pain or difficulty breathing. Patient is tolerating diet. Discussed plan of care at bedside with patient. Pending outpatient hemodialysis set up Objective - Exam Narrative Exam: GENERAL: well-developed malnourished -[place] male lying on bed appeared to be in no discomfort. HEENT: Normocephalic. Atraumatic. No conjunctival congestion or icterus. Patient has moist mucous membranes. NECK: Supple. Trachea midline. CHEST/LUNGS: Clear to auscultated bilaterally, breathing nonlabored. No wheezes crackles or rhonchi. HEART/CARDIOVASCULAR: Regular in rate and rhythm. S1 and S2 positive. ABDOMEN: Abdomen is soft, nontender. Patient has normal bowel sounds. SKIN: There is no rash. Warm and dry. NEURO: No focal motor deficit. Follows command. MUSCULOSKELETAL: No joint effusion or tenderness. EXTRIMITY: No edema, no cyanosis or clubbing. PSYCH: Cooperative. - Constitutional Vitals: Vital Signs - 12hr 10/19/21 10/19/21 08:47 10:00 Temperature 98.4 F Pulse Rate 65 Respiratory 16 Rate Blood Pressure 135/72 O2 Sat by Pulse 100 100 Oximetry - Labs CBC & Chem 7: 10/14/21 04:40 10/20/21 10:59 Labs: Abnormal lab results 10/18/21 10/18/21 Range/Units 16:49 21:46 POC Glucose 117 H 116 H (70-105) mg/dL
[2021-10-20] MEDS: carvediloL 6.25 MG TAB PO SCH ×3 (00:03→23:47)
[2021-10-20] MEDS: HEPARIN 5,000 UNIT/1 ML VIAL SUB-Q SCH ×4 (00:03→23:44)
[2021-10-20] MEDS: NIFEdipine XL 90 MG TAB PO SCH (10:49)
[2021-10-20] MEDS: ASPIRIN 81 MG TAB CHEW PO SCH (10:49)
[2021-10-20] MEDS: FAMOTIDINE 20 MG TAB PO SCH (10:49)
--- NOTE | 2021-10-20 10:58 | Progress Note ---
Assessment and Plan # Acute Kidney Injury/Kidney Failure: Noted to have creatinine 1.2 earlier this year so suspect acute kidney injury - STAT HD started 10/06 for hyperkalemia, azotemia/uremia; s/p daily HD x3 days given uremia/azotemia - Continue MWF HD for ongoing solute/toxin management - renal ultrasound acutely WNL, no obstruction - urinalysis reviewed, f/u serologies to rule out GN injury, still pending - note PTH high, may have secondary to underlying CKD - strict Is/Os- low urine output noted - assess for renal recovery as able - avoid nephrotoxins - hold diuretics, EMILIANO/ARB for now s/p perm cath--await outpatient hd arrangement # HTN: BP stable currently, per primary team due to HTN, Avoid ARB for now given hyperkalemia, HARDIK. Can restart once HARDIK improves or clearly CKD progression # Altered Mentation: unknown baseline # CVA: care per primary, neurology Subjective Date of service: 10/20/21 Principal diagnosis: AMS; HARDIK; Severe hyperkalemia; Hypertension; CMOP; Mild leukocytosis Interval history: Resting in bed. Low UOP. Objective - Exam Narrative Exam: General appearance: no distress, frail EENT: ATNC Neck: Present: neck supple Respiratory: Clear to Ascultation, Normal Exam Heart: regular Gastrointestinal: Present: normoactive bowel sounds Integumentary: no rash, cool/clammy Neurologic: asterixis/tremulous, confused - Vital Signs Vital signs: Vital Signs - 12hr 10/19/21 10/20/21 10/20/21 23:03 00:00 00:03 Temperature 98.6 F Pulse Rate 65 60 66 Respiratory 18 Rate Blood Pressure 115/72 147/70 O2 Sat by Pulse 100 Oximetry 10/20/21 10/20/21 10/20/21 03:58 08:15 08:42 Temperature 99.2 F 98.5 F Pulse Rate 72 73 Respiratory 18 16 Rate Blood Pressure 138/73 112/64 O2 Sat by Pulse 99 100 99 Oximetry - Lab 10/14/21 04:40 10/20/21 10:59 Most recent lab results ABG pH 7.425 pH Units (7.350-7.450) 10/09/21 13:45 ABG pCO2 35.1 mm Hg 10/09/21 13:45 ABG pO2 75.9 mm Hg (80.0-90.0) L 10/09/21 13:45 ABG HCO3 22.5 mmol/L (20.0-26.0) 10/09/21 13:45 ABG O2 Saturation 96.4 % (95.0-99.0) 10/09/21 13:45 Calcium 8.7 mg/dL (8.4-10.2) 10/14/21 04:40 Urine Creatinine 234.3 mg/dL (0.1-20.0) H 10/06/21 14:04 Urine Total Protein 28 mg/dL (5-11.8) H 10/06/21 14:04 Medications & Allergies - Medications Allergies/Adverse Reactions: Allergies No Known Allergies Allergy (Verified 05/09/21 13:32) Home Medications: Home Medications Medication Instructions Recorded Confirmed Last Taken Type Furosemide [Lasix TAB] 40 mg PO QDAY #30 tablet 05/10/21 10/08/21 Unknown Rx carvediloL [Coreg] 6.25 mg PO BID #60 tablet 05/11/21 10/08/21 Unknown Rx NIFEdipine [Nifedipine ER] 60 mg PO DAILY #30 tab 05/13/21 10/08/21 Unknown Rx Valsartan [Diovan] 160 mg PO QDAY #30 tablet 05/13/21 10/08/21 Unknown Rx Active Medications: Generic Name Dose Route Start Last Admin Trade Name Freq PRN Reason Stop Dose Admin Acetaminophen 650 mg 10/06/21 01:42 Acetaminophen 325 Mg Tab PO Q4H PRN Pain MILD(1-3)/Fever >100.5/MARROQUIN Aspirin 81 mg 10/08/21 10:00 10/20/21 10:49 Aspirin 81 Mg Tab Chew PO 81 mg QDAY FREDI Administration Atorvastatin Calcium 40 mg 10/06/21 22:00 10/20/21 00:04 Atorvastatin 40 Mg Tab PO 40 mg QHS FREDI Administration Bisacodyl 10 mg 10/06/21 01:42 Bisacodyl 10 Mg Rect Supp NJ QDAY PRN Constipation Carvedilol 6.25 mg 10/07/21 10:00 10/20/21 10:49 Carvedilol 6.25 Mg Tab PO 6.25 mg BID FREDI Administration Dextrose 50 ml 10/06/21 01:42 Dextrose 50% In Water (25gm) 50 Ml Syringe IV Q30MIN PRN Hypoglycemia Protocol Epoetin Cm-epbx 10,000 unit 10/17/21 16:27 Epoetin Cm-Epbx 10,000 Unit/1 Ml Vial IV DESHAWN PRN hemodialysis Famotidine 20 mg 10/07/21 10:00 10/20/21 10:49 Famotidine 20 Mg Tab PO 20 mg DAILY FREDI Administration Heparin Sodium (Porcine) 5,000 unit 10/06/21 14:00 10/20/21 05:08 Heparin 5,000 Unit/1 Ml Vial SUB-Q 5,000 unit Q8HR FREDI Administration Hydralazine HCl 10 mg 10/06/21 18:38 10/08/21 00:41 Hydralazine 20 Mg/1 Ml Inj IV 10 mg Q4HR PRN Administration Hypertension Magnesium Hydroxide 30 ml 10/06/21 01:42 Magnesium Hydroxide (Mom) Oral Liqd Udc PO Q4H PRN Constipation Metoclopramide HCl 2.5 mg 10/06/21 01:59 Metoclopramide 10 Mg/10 Ml Oral Liqd PO Q6H PRN Nausea And Vomiting Nifedipine 90 mg 10/09/21 10:00 10/20/21 10:49 Nifedipine Xl 90 Mg Tab PO 90 mg QDAY FREDI Administration Ondansetron HCl 4 mg 10/06/21 01:42 Ondansetron 4 Mg/2 Ml Inj IV Q8H PRN Nausea And Vomiting Promethazine HCl 25 mg 10/06/21 01:42 Promethazine 25 Mg Rect Supp NJ Q6H PRN Nausea And Vomiting Sodium Chloride 10 ml 10/06/21 10:00 10/20/21 10:50 Sodium Chloride 0.9% 10 Ml Flush Syringe IV 10 ml BID FREDI Administration Sodium Chloride 10 ml 10/06/21 01:42 Sodium Chloride 0.9% 10 Ml Flush Syringe IV PRN PRN LINE FLUSH
[2021-10-20 11:36] LABS: Calcium 8.6 mg/dL (8.4-10.2)
--- NOTE | 2021-10-20 13:49 | Progress Note ---
Assessment and Plan 71-year-old male resident of [facility] with known history of hypertension , CHF sent to the emergency room for evaluation of changes in mental status since yesterday. Patient was said not to be his normal self over the past 24 hours. Patient unable to give any good history at this time most of the information was obtained from the ER staff. Work-up in the emergency room , labs were significant for leukocytosis of 11.3, potassium of 7.7, BUN to 216 and creatinine of 18.1. EKG shows some peaked T waves. CT scan of the head consistent with features of microvascular ischemia bilateral lacunar infarcts within the basal ganglia and left central semiovale. Area of hypoattenuation involving the right temporal lobe. Subacute ischemia is not excluded. MRI recommended for further evaluation. Teleneurology consulted by the ER physician and recommendation was to have CVA work-up. Surveillance Officer was also consulted regarding lab findings and EKG findings and admitted dialysis was recommended. Patient sleeping. on room air . O2 saturation 100%. No acute respiratory distress. Patient afebrile. No leukocytosis. Blood pressure 112/64, Pulse 73, Respirations 16. Chest ray done 10/06/21 reported Mild bibasilar linear atelectatic change. Mild chronic changes. No definite pneumonic infiltrates or effusions. No pneumothorax. Patient is on S/C Heparin and famotidine. - Patient Problems (1) CVA (cerebral vascular accident) Current Visit: Yes Status: Acute Plan to address problem: Management as per primary care and neurology. (2) Altered mental status Current Visit: Yes Status: Acute Plan to address problem: Management as per primary care. (3) HARDIK (acute kidney injury) Current Visit: Yes Status: Acute Plan to address problem: Management as per nephrology. (4) Bilateral lower leg cellulitis Current Visit: No Status: Acute Plan to address problem: Recommend to consult infectious diseases. Subjective Date of service: 10/20/21 Principal diagnosis: AMS; HARDIK; Severe hyperkalemia; Hypertension; CMOP; Mild leukocytosis Interval history: 71-year-old male resident of [facility] with known history of hypertension , CHF sent to the emergency room for evaluation of changes in mental status since yesterday. Patient was said not to be his normal self over the past 24 hours. Patient unable to give any good history at this time most of the information was obtained from the ER staff. Work-up in the emergency room , labs were significant for leukocytosis of 11.3, potassium of 7.7, BUN to 216 and creatinine of 18.1. EKG shows some peaked T waves. CT scan of the head consistent with features of microvascular ischemia bilateral lacunar infarcts within the basal ganglia and left central semiovale. Area of hypoattenuation involving the right temporal lobe. Subacute ischemia is not excluded. MRI recommended for further evaluation. Teleneurology consulted by the ER physician and recommendation was to have CVA work-up. Surveillance Officer was also consulted regarding lab findings and EKG findings and admitted dialysis was recommended. Patient sleeping. on room air . O2 saturation 100%. No acute respiratory distr ess. Patient afebrile. No leukocytosis. Blood pressure 112/64, Pulse 73, Respirations 16. Chest ray done 10/06/21 reported Mild bibasilar linear atelectatic change. Mild chronic changes. No definite pneumonic infiltrates or effusions. No pneumothorax. Patient is on S/C Heparin and famotidine. Objective Vital Signs - 12hr 10/20/21 10/20/21 10/20/21 03:58 08:15 08:42 Temperature 99.2 F 98.5 F Pulse Rate 72 73 Respiratory 18 16 Rate Blood Pressure 138/73 112/64 O2 Sat by Pulse 99 100 99 Oximetry Constitutional: no acute distress, alert, other (dementia) Eyes: non-icteric ENT: oropharynx moist Neck: supple, no lymphadenopathy Effort: normal Ascultation: Bilateral: diminished breath sounds Percussion: Bilateral: not dull Cardiovascular: regular rate and rhythm Gastrointestinal: normoactive bowel sounds, soft, non-tender, non-distended Integumentary: cellulitis Extremities: other (Stasis dermatitis.) Neurologic: non-focal exam (grossly), pupils equal and round, motor strength normal and Psychiatric: other (Confused. Not oriented.) CBC and BMP: 10/14/21 04:40 10/20/21 10:59 ABG, PT/INR, D-dimer: ABG ABG pH 7.425 pH Units (7.350-7.450) 10/09/21 13:45 ABG pCO2 35.1 mm Hg 10/09/21 13:45 ABG pO2 75.9 mm Hg (80.0-90.0) L 10/09/21 13:45 ABG O2 Saturation 96.4 % (95.0-99.0) 10/09/21 13:45 PT/INR, D-dimer PT 16.6 Sec. (12.2-14.9) H 10/05/21 21:39 INR 1.20 (0.87-1.13) H 10/05/21 21:39 Abnormal lab findings: Abnormal Labs 10/05/21 10/05/21 10/05/21 21:39 21:39 22:41 WBC 11.3 H RBC Hgb Hct RDW 15.3 H Plt Count Lymph % (Auto) 7.6 L Weld % (Auto) 7.7 H Lymph # (Auto) 0.9 L Weld # (Auto) 0.9 H Seg Neutrophils % 83.7 H Seg Neutrophils # 9.5 H PT 16.6 H INR 1.20 H ABG pO2 ABG Hemoglobin Oxyhemoglobin Sodium Potassium Chloride Carbon Dioxide BUN Creatinine Glucose POC Glucose Calcium ALT Ammonia Total Protein Albumin Vwoui-2-Jecbnepdw Cmdkm-3-Jucupmdvi PEP Interpretation Triglycerides Cholesterol LDL Cholesterol Direct HDL Cholesterol PTH Intact Urine Creatinine Urine Total Protein Salicylates < 0.3 L 10/05/21 10/05/21 10/06/21 22:41 22:41 04:21 WBC RBC Hgb Hct RDW Plt Count Lymph % (Auto) Weld % (Auto) Lymph # (Auto) Weld # (Auto) Seg Neutrophils % Seg Neutrophils # PT INR ABG pO2 ABG Hemoglobin Oxyhemoglobin Sodium Potassium 7.7 H* 6.1 H* D Chloride Carbon Dioxide 19 L BUN 216 H 224 H Creatinine 18.1 H 19.7 H Glucose 117 H 64 L POC Glucose Calcium 11.0 H ALT < 5 L Ammonia 14.0 L Total Protein 8.3 H Albumin Twivr-3-Fwofvzgjz Qgbyf-8-Ruiwweuxt PEP Interpretation Triglycerides Cholesterol LDL Cholesterol Direct HDL Cholesterol PTH Intact Urine Creatinine Urine Total Protein Salicylates 10/06/21 10/06/21 10/06/21 04:21 14:04 17:30 WBC RBC Hgb Hct RDW Plt Count Lymph % (Auto) Weld % (Auto) Lymph # (Auto) Weld # (Auto) Seg Neutrophils % Seg Neutrophils # PT INR ABG pO2 ABG Hemoglobin Oxyhemoglobin Sodium Potassium Chloride Carbon Dioxide BUN 131 H Creatinine 12.7 H Glucose 157 H POC Glucose Calcium ALT Ammonia Total Protein Albumin Oibpl-6-Krgewhuol Latib-0-Tdlyunpmy PEP Interpretation Triglycerides 382 H Cholesterol 273 H LDL Cholesterol Direct 151 H HDL Cholesterol 27 L PTH Intact Urine Creatinine 234.3 H Urine Total Protein 28 H Salicylates 10/07/21 10/07/21 10/07/21 05:14 05:14 05:14 WBC RBC 3.37 L Hgb 10.0 L Hct 30.1 L D RDW Plt Count 117 L Lymph % (Auto) 10.4 L Weld % (Auto) 7.9 H Lymph # (Auto) 0.7 L Weld # (Auto) Seg Neutrophils % 80.2 H Seg Neutrophils # PT INR ABG pO2 ABG Hemoglobin Oxyhemoglobin Sodium Potassium Chloride Carbon Dioxide BUN 123 H Creatinine 10.9 H Glucose 119 H POC Glucose Calcium ALT Ammonia Total Protein Albumin Ulcmt-5-Lmmuoogdp Choui-6-Wmadurvao PEP Interpretation Triglycerides Cholesterol LDL Cholesterol Direct HDL Cholesterol PTH Intact 333.5 H Urine Creatinine Urine Total Protein Salicylates 10/07/21 10/07/21 10/08/21 05:14 21:43 04:56 WBC RBC 3.59 L Hgb 10.4 L Hct 32.2 L RDW Plt Count 116 L Lymph % (Auto) Weld % (Auto) Lymph # (Auto) Weld # (Auto) Seg Neutrophils % Seg Neutrophils # PT INR ABG pO2 ABG Hemoglobin Oxyhemoglobin Sodium Potassium Chloride Carbon Dioxide BUN Creatinine Glucose POC Glucose 144 H Calcium ALT Ammonia Total Protein Albumin 3.7 L Zwnqb-0-Aosxhhnzd 0.4 H Siasm-1-Sxeqwqdvn 1.0 H PEP Interpretation see below H Triglycerides Cholesterol LDL Cholesterol Direct HDL Cholesterol PTH Intact Urine Creatinine Urine Total Protein Salicylates 10/08/21 10/08/21 10/08/21 04:56 11:22 15:36 WBC RBC Hgb Hct RDW Plt Count Lymph % (Auto) Weld % (Auto) Lymph # (Auto) Weld # (Auto) Seg Neutrophils % Seg Neutrophils # PT INR ABG pO2 ABG Hemoglobin Oxyhemoglobin Sodium 147 H Potassium Chloride 109.8 H Carbon Dioxide 20 L BUN 123 H Creatinine 9.7 H Glucose 110 H POC Glucose 145 H 139 H Calcium ALT Ammonia Total Protein Albumin Hoaqt-9-Otwdwydgf Wwnsz-1-Quxomreln PEP Interpretation Triglycerides Cholesterol LDL Cholesterol Direct HDL Cholesterol PTH Intact Urine Creatinine Urine Total Protein Salicylates 06/26/22 06/26/22 06/26/22 12:36 13:45 18:01 WBC RBC Hgb Hct RDW Plt Count Lymph % (Auto) Weld % (Auto) Lymph # (Auto) Weld # (Auto) Seg Neutrophils % Seg Neutrophils # PT INR ABG pO2 75.9 L ABG Hemoglobin 10.8 L Oxyhemoglobin 94.8 L Sodium Potassium Chloride Carbon Dioxide BUN Creatinine Glucose POC Glucose 121 H 143 H Calcium ALT Ammonia Total Protein Albumin Sdeqa-6-Sibmccnua Jcyik-7-Bgdpfcbny PEP Interpretation Triglycerides Cholesterol LDL Cholesterol Direct HDL Cholesterol PTH Intact Urine Creatinine Urine Total Protein Salicylates 10/10/21 10/10/21 10/11/21 00:16 05:09 05:13 WBC RBC Hgb Hct RDW Plt Count Lymph % (Auto) Weld % (Auto) Lymph # (Auto) Weld # (Auto) Seg Neutrophils % Seg Neutrophils # PT INR ABG pO2 ABG Hemoglobin Oxyhemoglobin Sodium 147 H Potassium Chloride 109.0 H Carbon Dioxide BUN 103 H 45 H Creatinine 6.8 H 4.6 H Glucose 108 H POC Glucose 108 H Calcium ALT Ammonia Total Protein Albumin Vsast-9-Ftqcerftz Qcwie-9-Wmcdvhvxi PEP Interpretation Triglycerides Cholesterol LDL Cholesterol Direct HDL Cholesterol PTH Intact Urine Creatinine Urine Total Protein Salicylates 10/12/21 10/12/21 10/13/21 04:50 16:31 00:01 WBC RBC Hgb Hct RDW Plt Count Lymph % (Auto) Weld % (Auto) Lymph # (Auto) Weld # (Auto) Seg Neutrophils % Seg Neutrophils # PT INR ABG pO2 ABG Hemoglobin Oxyhemoglobin Sodium Potassium Chloride Carbon Dioxide BUN 52 H Creatinine 4.9 H Glucose POC Glucose 117 H 111 H Calcium ALT Ammonia Total Protein Albumin Lokty-9-Pklcszaby Kpnzv-7-Utkfftetg PEP Interpretation Triglycerides Cholesterol LDL Cholesterol Direct HDL Cholesterol PTH Intact Urine Creatinine Urine Total Protein Salicylates 10/13/21 10/13/21 10/13/21 12:30 18:27 23:30 WBC RBC Hgb Hct RDW Plt Count Lymph % (Auto) Weld % (Auto) Lymph # (Auto) Weld # (Auto) Seg Neutrophils % Seg Neutrophils # PT INR ABG pO2 ABG Hemoglobin Oxyhemoglobin Sodium Potassium Chloride Carbon Dioxide BUN Creatinine Glucose POC Glucose 116 H 133 H 109 H Calcium ALT Ammonia Total Protein Albumin Hfbzk-1-Mprikbboe Iwrxd-3-Bhwkxnxfb PEP Interpretation Triglycerides Cholesterol LDL Cholesterol Direct HDL Cholesterol PTH Intact Urine Creatinine Urine Total Protein Salicylates 10/14/21 10/14/21 10/14/21 04:40 04:40 17:31 WBC RBC 2.81 L Hgb 8.3 L Hct 25.3 L RDW Plt Count Lymph % (Auto) Weld % (Auto) 14.4 H Lymph # (Auto) Weld # (Auto) Seg Neutrophils % Seg Neutrophils # PT INR ABG pO2 ABG Hemoglobin Oxyhemoglobin Sodium Potassium 3.5 L Chloride Carbon Dioxide BUN 47 H Creatinine 5.0 H Glucose POC Glucose 106 H Calcium ALT Ammonia Total Protein Albumin Xrtna-9-Tooqqzpqk Aelly-2-Qmgtoekpv PEP Interpretation Triglycerides Cholesterol LDL Cholesterol Direct HDL Cholesterol PTH Intact Urine Creatinine Urine Total Protein Salicylates 10/16/21 10/18/21 10/18/21 16:02 16:49 21:46 WBC RBC Hgb Hct RDW Plt Count Lymph % (Auto) Weld % (Auto) Lymph # (Auto) Weld # (Auto) Seg Neutrophils % Seg Neutrophils # PT INR ABG pO2 ABG Hemoglobin Oxyhemoglobin Sodium Potassium Chloride Carbon Dioxide BUN Creatinine Glucose POC Glucose 119 H 117 H 116 H Calcium ALT Ammonia Total Protein Albumin Emefr-4-Jklwqfxva Bgfrl-6-Lnvtfmpyc PEP Interpretation Triglycerides Cholesterol LDL Cholesterol Direct HDL Cholesterol PTH Intact Urine Creatinine Urine Total Protein Salicylates 10/19/21 10/20/21 16:18 10:59 WBC RBC Hgb Hct RDW Plt Count Lymph % (Auto) Weld % (Auto) Lymph # (Auto) Weld # (Auto) Seg Neutrophils % Seg Neutrophils # PT INR ABG pO2 ABG Hemoglobin Oxyhemoglobin Sodium Potassium Chloride 96.8 L Carbon Dioxide BUN 29 H Creatinine 3.5 H Glucose 102 H POC Glucose 144 H Calcium ALT Ammonia Total Protein Albumin Zvtda-5-Ezzoijyic Ddyzc-7-Yyueupele PEP Interpretation Triglycerides Cholesterol LDL Cholesterol Direct HDL Cholesterol PTH Intact Urine Creatinine Urine Total Protein Salicylates Allied health notes reviewed: nursing
[2021-10-21] MEDS: HEPARIN 5,000 UNIT/1 ML VIAL SUB-Q SCH ×3 (05:49→22:22)
--- NOTE | 2021-10-21 10:20 | Progress Note ---
Assessment and Plan 10/06: Remains altered but stable on 2L NC, VSS. Still hyperkalemic this am, HD in progress at the bedside. Repeat BMP a hour after HD. CT head/Brain noted. Continue CVA workup, MRI brain, US carotid, and 2D echo pending. Neurology consulted. Patient is hypoglycemic this am, s/p IV insulin for hyperkalemia, continue BG check and hypoglycemic protocol. Will order diet if patient pass bedside swallow. PT/OT/Speech consulted. Left big toe ulcer noted. Per patient's daughter, patient is following with Vascular Surgery outpatient, revascula rization was performed in the [facility] in the past and they were talking of possibly amputating that left toe. No evidence of any infectious process at this time and patient is currently hemodynamicaly stable. Will get wound care for wound management. Follow up with Vascular surgery outpatient for further management. 10/07: Increased confusion and agitation required wrist restraints overnight for safety. Patient is still confused this am, but calm and cooperative. MRI brain p ending. Patient tolerated HD yesterday. Hypertensive this am, resumed home meds and continue PRN antihypertensives. Continue HD per Nephro. Patient is stable for transfer to Telemetry. 10/09/2021; patient is slightly agitated requiring restraints Awaiting return to SNF when medically stable Nephrology initiated hemodialysis, HD as needed If renal decides that patient needs long-term hemodialysis Case management will assist with outpatient HD chair scheduling 10/11/2021; patient is receiving hemodialysis Once nephrology confirms long-term HD, check with case management for outpatient HD placement Patient continues to be confused requiring restraints 10/12/2021; patient is more alert and awake responding appropriately Continue current management, if he continues to be manageable, will try to DC restraints 10/13/2021; today patient is more alert and awake,, CM assisting with outpatient HD placement Hemodialysis per schedule MWF, possible discharge in [facility] facility 2 days if stable 10/14/2021; patient had permacath followed by hemodialysis today tolerated well, Case management assisting with outpatient HD placement 10/15/2021; patient is comfortable no new complaints Awaiting placement/return to [facility] facility 10/16/2021; awaiting to go back to [facility] Awaiting authorization 10/17/2021; patient is medically stable awaiting Placement/return to [facility] pending authorization. 10/18/21: Patient waiting for outpatient HD set up. Waiting authorization for re turn back to [facility] nursing [facility]. Continue to follow, patient denies any acute issue today. 10/19/21; pending outpatient HD set up. Patient may going to be discharged home with home health and family supervision if family agrees and insurance does approved [facility] stay. Need inpatient care for continuous need for hemodialysis. We will continue to follow. 10/20/21: Patient follows command but according to RN and based on my examination patient is oriented to person only. He is unable to take care of himself and needs total care. Need inpatient monitoring for hemodialysis requirement and 24/7 care. A/P #Acute Metabolic Encephalopathy: Improved Multifactorial, acute stroke , acute kidney injury , electrolyte abnormalities treat the underlying cause, Supportive care [facility] and intermittently still having confusi on Need inpatient care for continuous monitoring and dialysis requirement #Acute CVA: Left thalamic infarction Continue aspirin and statin Physical therapy occupational therapy Recommended subacute rehab Awaiting placement/return to [facility] facility MRI brain:extensive chronic and age-related changes punctate focus of increased diffusion weighted signal in the left thalamic area Evidence of recent or acute left thalamic infarction Neurology evaluated once on admission Awaiting placement/return to [facility]/awaiting authorization Acute on Chronic Kidney Disease; transition to end-stage renal disease Nephrology evaluated, initiated hemodialysis on 10/06/21 Patient had permacath placement on 10/14/2021 HD per schedule, MWF, outpatient HD placement in process per CM #Severe Hyperkalemia- resolved -Initial potassium was 7.1, managed appropriately Currently hemodialysis per schedule #Hypertension; moderate control Continue current antihypertensives As needed hydralazine #Big Toe Ulcer, Left/wound dressing. Elevate the limb Supportive care - Left big toe ulcer noted - Per patient's daughter, patient is following with Vascular Surgery outpatient, revascularization was performed in the [facility] in the past and they were considering the possibility of amputating that left toe. - No evidence of any infectious process at this time and patient is currently hemodynamicaly stable - Will get wound care for wound management - Follow up with Vascular Surgery outpatient for further management. #Hypoglycemia-resolved Closely monitor blood sugars Adjust management as needed Closely monitor blood sugars Hypoglycemia resolved #GI/DVT Prophylaxis - PPI- Pepcid - Heparin SubQ - SCDs to bilateral lower extremities while in bed #Advance Care Planning - Disease education data, care plan, diagnoses, and prognosis were discussed with patient's daughter. Patient is a FULL code. Patient's daughter acknowledged understanding and agreement with current care plan. Closely monitor the patient and adjust the management as needed Plan of care reviewed with the patient and his nurse Discharge planning; PT recommended subacute rehab versus [facility] Patient would return to [facility] when medically stable Awaiting authorization Possible discharge in 1 to 2 days if stable Plan of care reviewed with the patient. His nurse, case management s/p permacath placement followed by HD today CM processing outpatient HD placement. Subjective Date of service: 10/20/21 Principal diagnosis: AMS; HARDIK; Severe hyperkalemia; Hypertension; CMOP; Mild leukocytosis Interval history: Patient seen and examined. Medical records and medication list reviewed. No acute event overnight noted by the RN. Patient denies any chest pain or difficulty breathing. Patient is tolerating diet. RN reports intermittent confusion, patient is a total care Pending outpatient hemodialysis set up Objective - Exam Narrative Exam: GENERAL: well-developed malnourished -[place] male lying on bed appeared to be in no discomfort. HEENT: Normocephalic. Atraumatic. No conjunctival congestion or icterus. Patient has moist mucous membranes. NECK: Supple. Trachea midline. CHEST/LUNGS: Clear to auscultated bilaterally, breathing nonlabored. No wheezes crackles or rhonchi. HEART/CARDIOVASCULAR: Regular in rate and rhythm. S1 and S2 positive. ABDOMEN: Abdomen is soft, nontender. Patient has normal bowel sounds. SKIN: There is no rash. Warm and dry. NEURO: No focal motor deficit. Follows command. MUSCULOSKELETAL: No joint effusion or tenderness. EXTRIMITY: No edema, no cyanosis or clubbing. PSYCH: Cooperative. Oriented to person only - Constitutional Vitals: Vital Signs - 12hr 10/20/21 10/20/21 10/21/21 23:38 23:47 03:23 Temperature 98.7 F 98.7 F Pulse Rate 66 68 68 Respiratory 16 19 Rate Blood Pressure 101/58 131/68 95/60 Blood Pressure [Right] O2 Sat by Pulse 90 100 Oximetry 10/21/21 10/21/21 08:18 08:55 Temperature 98.1 F Pulse Rate 72 Respiratory 16 17 Rate Blood Pressure Blood Pressure 127/65 [Right] O2 Sat by Pulse 96 100 Oximetry - Labs CBC & Chem 7: 10/14/21 04:40 10/20/21 10:59 Labs: Abnormal lab results 10/20/21 Range/Units 10:59 Chloride 96.8 L (98-107) mmol/L BUN 29 H (9-20) mg/dL Creatinine 3.5 H (0.8-1.3) mg/dL Glucose 102 H (75-100) mg/dL
[2021-10-21] MEDS: FAMOTIDINE 20 MG TAB PO SCH (13:11)
--- NOTE | 2021-10-21 13:36 | Progress Note ---
Assessment and Plan 71-year-old male resident of [facility] with known history of hypertension , CHF sent to the emergency room for evaluation of changes in mental status since yesterday. Patient was said not to be his normal self over the past 24 hours. Patient unable to give any good history at this time most of the information was obtained from the ER staff. Work-up in the emergency room , labs were significant for leukocytosis of 11.3, potassium of 7.7, BUN to 216 and creatinine of 18.1. EKG shows some peaked T waves. CT scan of the head consistent with features of microvascular ischemia bilateral lacunar infarcts within the basal ganglia and left central semiovale. Area of hypoattenuation involving the right temporal lobe. Subacute ischemia is not excluded. MRI recommended for further evaluation. Teleneurology consulted by the ER physician and recommendation was to have CVA work-up. Statistical Technician was also consulted regarding lab findings and EKG findings and admitted dialysis was recommended. Patient has hemodialysis to day.No change in patients clinical condition. Patient awake. on room air . O2 saturation 100%. No acute respiratory distress. Still confused. Patient afebrile. No leukocytosis. Blood pressure 164/88 , Pulse 54, Respirations 18. Chest ray done 10/06/21 reported Mild bibasilar linear atelectatic change. Mild chronic changes. No definite pneumonic infiltrates or effusions. No pneumothorax. Patient is on S/C Heparin and famotidine. - Patient Problems (1) CVA (cerebral vascular accident) Current Visit: Yes Status: Acute Plan to address problem: Management as per primary care and neurology. (2) Altered mental status Current Visit: Yes Status: Acute Plan to address problem: Management as per primary care. (3) HARDIK (acute kidney injury) Current Visit: Yes Status: Acute Plan to address problem: Management as per nephrology. (4) Bilateral lower leg cellulitis Current Visit: No Status: Acute Plan to address problem: Recommend to consult infectious diseases. Subjective Date of service: 10/21/21 Principal diagnosis: AMS; HARDIK; Severe hyperkalemia; Hypertension; CMOP; Mild leukocytosis Interval history: 71-year-old male resident of [facility] with known history of hypertension , CHF sent to the emergency room for evaluation of changes in mental status since yesterday. Patient was said not to be his normal self over the past 24 hours. Patient unable to give any good history at this time most of the information was obtained from the ER staff. Work-up in the emergency room , labs were significant for leukocytosis of 11.3, potassium of 7.7, BUN to 216 and creatinine of 18.1. EKG shows some peaked T waves. CT scan of the head consistent with features of microvascular ischemia bilateral lacunar infarcts within the basal ganglia and left central semiovale. Area of hypoattenuation involving the right temporal lobe. Subacute ischemia is not excluded. MRI recommended for further evaluation. Teleneurology consulted by the ER physician and recommendation was to have CVA work-up. Statistical Technician was also consulted regarding lab findings and EKG findings and admitted dialysis was recommended. Patient has hemodialysis to day.No change in patients clinical condition. Patient awake. on room air . O2 saturation 100%. No acute respiratory distress. Still confused. Patient afebrile. No leukocytosis. Blood pressure 164/88 , Pulse 54, Respirations 18. Chest ray done 10/06/21 reported Mild bibasilar linear atelectatic change. Mild chronic changes. No definite pneumonic infiltrates or effusions. No pneumothorax. Patient is on S/C Heparin and famotidine. Objective Vital Signs - 12hr 10/21/21 10/21/21 10/21/21 03:23 08:18 08:55 Temperature 98.7 F 98.1 F Pulse Rate 68 72 Respiratory 19 16 17 Rate Blood Pressure 95/60 Blood Pressure 127/65 [Right] O2 Sat by Pulse 100 96 100 Oximetry Constitutional: no acute distress, alert, other (still confused.) Eyes: non-icteric ENT: oropharynx moist Neck: supple, no lymphadenopathy Effort: normal Ascultation: Bilateral: diminished breath sounds Percussion: Bilateral: not dull Cardiovascular: regular rate and rhythm Gastrointestinal: normoactive bowel sounds, soft, non-tender, non-distended Integumentary: cellulitis Extremities: other (Stasis dermatitis.) Neurologic: non-focal exam (grossly), pupils equal and round, motor strength normal and Psychiatric: other (Confused. Not oriented.) CBC and BMP: 10/14/21 04:40 10/20/21 10:59 ABG, PT/INR, D-dimer: ABG ABG pH 7.425 pH Units (7.350-7.450) 10/09/21 13:45 ABG pCO2 35.1 mm Hg 10/09/21 13:45 ABG pO2 75.9 mm Hg (80.0-90.0) L 10/09/21 13:45 ABG O2 Saturation 96.4 % (95.0-99.0) 10/09/21 13:45 PT/INR, D-dimer PT 16.6 Sec. (12.2-14.9) H 10/05/21 21:39 INR 1.20 (0.87-1.13) H 10/05/21 21:39 Abnormal lab findings: Abnormal Labs 10/05/21 10/05/21 10/05/21 21:39 21:39 22:41 WBC 11.3 H RBC Hgb Hct RDW 15.3 H Plt Count Lymph % (Auto) 7.6 L Jasper % (Auto) 7.7 H Lymph # (Auto) 0.9 L Jasper # (Auto) 0.9 H Seg Neutrophils % 83.7 H Seg Neutrophils # 9.5 H PT 16.6 H INR 1.20 H ABG pO2 ABG Hemoglobin Oxyhemoglobin Sodium Potassium Chloride Carbon Dioxide BUN Creatinine Glucose POC Glucose Calcium ALT Ammonia Total Protein Albumin Zrzlw-0-Zblojjlqs Dizwi-8-Ufftdsxnb PEP Interpretation Triglycerides Cholesterol LDL Cholesterol Direct HDL Cholesterol PTH Intact Urine Creatinine Urine Total Protein Salicylates < 0.3 L 10/05/21 10/05/21 10/06/21 22:41 22:41 04:21 WBC RBC Hgb Hct RDW Plt Count Lymph % (Auto) Jasper % (Auto) Lymph # (Auto) Jasper # (Auto) Seg Neutrophils % Seg Neutrophils # PT INR ABG pO2 ABG Hemoglobin Oxyhemoglobin Sodium Potassium 7.7 H* 6.1 H* D Chloride Carbon Dioxide 19 L BUN 216 H 224 H Creatinine 18.1 H 19.7 H Glucose 117 H 64 L POC Glucose Calcium 11.0 H ALT < 5 L Ammonia 14.0 L Total Protein 8.3 H Albumin Gowbr-3-Shpuswubw Wtpts-1-Qpsxtcwnb PEP Interpretation Triglycerides Cholesterol LDL Cholesterol Direct HDL Cholesterol PTH Intact Urine Creatinine Urine Total Protein Salicylates 10/06/21 10/06/21 10/06/21 04:21 14:04 17:30 WBC RBC Hgb Hct RDW Plt Count Lymph % (Auto) Jasper % (Auto) Lymph # (Auto) Jasper # (Auto) Seg Neutrophils % Seg Neutrophils # PT INR ABG pO2 ABG Hemoglobin Oxyhemoglobin Sodium Potassium Chloride Carbon Dioxide BUN 131 H Creatinine 12.7 H Glucose 157 H POC Glucose Calcium ALT Ammonia Total Protein Albumin Frpwp-2-Dwyitkggd Akgxo-2-Gudbdxtgm PEP Interpretation Triglycerides 382 H Cholesterol 273 H LDL Cholesterol Direct 151 H HDL Cholesterol 27 L PTH Intact Urine Creatinine 234.3 H Urine Total Protein 28 H Salicylates 10/07/21 10/07/21 10/07/21 05:14 05:14 05:14 WBC RBC 3.37 L Hgb 10.0 L Hct 30.1 L D RDW Plt Count 117 L Lymph % (Auto) 10.4 L [place]asper % (Auto) 7.9 H Lymph # (Auto) 0.7 L [place]asper # (Auto) Seg Neutrophils % 80.2 H Seg Neutrophils # PT INR ABG pO2 ABG Hemoglobin Oxyhemoglobin Sodium Potassium Chloride Carbon Dioxide BUN 123 H Creatinine 10.9 H Glucose 119 H POC Glucose Calcium ALT Ammonia Total Protein Albumin Jwsnu-9-Rjecersoj Mwwla-8-Apqsizlzi PEP Interpretation Triglycerides Cholesterol LDL Cholesterol Direct HDL Cholesterol PTH Intact 333.5 H Urine Creatinine Urine Total Protein Salicylates 10/07/21 10/07/21 10/08/21 05:14 21:43 04:56 WBC RBC 3.59 L Hgb 10.4 L Hct 32.2 L RDW Plt Count 116 L Lymph % (Auto) Jasper % (Auto) Lymph # (Auto) [place]asper # (Auto) Seg Neutrophils % Seg Neutrophils # PT INR ABG pO2 ABG Hemoglobin Oxyhemoglobin Sodium Potassium Chloride Carbon Dioxide BUN Creatinine Glucose POC Glucose 144 H Calcium ALT Ammonia Total Protein Albumin 3.7 L Bfbtj-9-Gymnioddu 0.4 H Qekab-0-Vgzwdgnmu 1.0 H PEP Interpretation see below H Triglycerides Cholesterol LDL Cholesterol Direct HDL Cholesterol PTH Intact Urine Creatinine Urine Total Protein Salicylates 10/08/21 10/08/21 10/08/21 04:56 11:22 15:36 WBC RBC Hgb Hct RDW Plt Count Lymph % (Auto) [place]asper % (Auto) Lymph # (Auto) [place]asper # (Auto) Seg Neutrophils % Seg Neutrophils # PT INR ABG pO2 ABG Hemoglobin Oxyhemoglobin Sodium 147 H Potassium Chloride 109.8 H Carbon Dioxide 20 L BUN 123 H Creatinine 9.7 H Glucose 110 H POC Glucose 145 H 139 H Calcium ALT Ammonia Total Protein Albumin Scdgn-4-Enpothfav Mgntg-7-Lmcxfvxyl PEP Interpretation Triglycerides Cholesterol LDL Cholesterol Direct HDL Cholesterol PTH Intact Urine Creatinine Urine Total Protein Salicylates 10/09/21 10/09/21 10/09/21 12:36 13:45 18:01 WBC RBC Hgb Hct RDW Plt Count Lymph % (Auto) [place]asper % (Auto) Lymph # (Auto) [place] # (Auto) Seg Neutrophils % Seg Neutrophils # PT INR ABG pO2 75.9 L ABG Hemoglobin 10.8 L Oxyhemoglobin 94.8 L Sodium Potassium Chloride Carbon Dioxide BUN Creatinine Glucose POC Glucose 121 H 143 H Calcium ALT Ammonia Total Protein Albumin Hnfxv-6-Bikxxzomj Ewegp-6-Ewdlyfquv PEP Interpretation Triglycerides Cholesterol LDL Cholesterol Direct HDL Cholesterol PTH Intact Urine Creatinine Urine Total Protein Salicylates 10/10/21 10/10/21 10/11/21 00:16 05:09 05:13 WBC RBC Hgb Hct RDW Plt Count Lymph % (Auto) [place]asper % (Auto) Lymph # (Auto) [place] # (Auto) Seg Neutrophils % Seg Neutrophils # PT INR ABG pO2 ABG Hemoglobin Oxyhemoglobin Sodium 147 H Potassium Chloride 109.0 H Carbon Dioxide BUN 103 H 45 H Creatinine 6.8 H 4.6 H Glucose 108 H POC Glucose 108 H Calcium ALT Ammonia Total Protein Albumin Cxnjq-7-Pexneolmw Qhukp-9-Wvkxquwxt PEP Interpretation Triglycerides Cholesterol LDL Cholesterol Direct HDL Cholesterol PTH Intact Urine Creatinine Urine Total Protein Salicylates 10/12/21 10/12/21 10/13/21 04:50 16:31 00:01 WBC RBC Hgb Hct RDW Plt Count Lymph % (Auto) [place] % (Auto) Lymph # (Auto) [place] # (Auto) Seg Neutrophils % Seg Neutrophils # PT INR ABG pO2 ABG Hemoglobin Oxyhemoglobin Sodium Potassium Chloride Carbon Dioxide BUN 52 H Creatinine 4.9 H Glucose POC Glucose 117 H 111 H Calcium ALT Ammonia Total Protein Albumin Cihsd-9-Tswkzgkfl Faxol-5-Eedkoiujc PEP Interpretation Triglycerides Cholesterol LDL Cholesterol Direct HDL Cholesterol PTH Intact Urine Creatinine Urine Total Protein Salicylates 10/13/21 10/13/21 10/13/21 12:30 18:27 23:30 WBC RBC Hgb Hct RDW Plt Count Lymph % (Auto) [place] % (Auto) Lymph # (Auto) [place] # (Auto) Seg Neutrophils % Seg Neutrophils # PT INR ABG pO2 ABG Hemoglobin Oxyhemoglobin Sodium Potassium Chloride Carbon Dioxide BUN Creatinine Glucose POC Glucose 116 H 133 H 109 H Calcium ALT Ammonia Total Protein Albumin Jsaci-5-Namygluwp Vmydf-1-Yvxskfeyy PEP Interpretation Triglycerides Cholesterol LDL Cholesterol Direct HDL Cholesterol PTH Intact Urine Creatinine Urine Total Protein Salicylates 10/14/21 10/14/21 10/14/21 04:40 04:40 17:31 WBC RBC 2.81 L Hgb 8.3 L Hct 25.3 L RDW Plt Count Lymph % (Auto) [place]asper % (Auto) 14.4 H Lymph # (Auto) [place] # (Auto) Seg Neutrophils % Seg Neutrophils # PT INR ABG pO2 ABG Hemoglobin Oxyhemoglobin Sodium Potassium 3.5 L Chloride Carbon Dioxide BUN 47 H Creatinine 5.0 H Glucose POC Glucose 106 H Calcium ALT Ammonia Total Protein Albumin Zabsi-7-Vnozqvbtj Dxvor-4-Frtdytnvn PEP Interpretation Triglycerides Cholesterol LDL Cholesterol Direct HDL Cholesterol PTH Intact Urine Creatinine Urine Total Protein Salicylates 10/16/21 10/18/21 10/18/21 16:02 16:49 21:46 WBC RBC Hgb Hct RDW Plt Count Lymph % (Auto) [place] % (Auto) Lymph # (Auto) [place] # (Auto) Seg Neutrophils % Seg Neutrophils # PT INR ABG pO2 ABG Hemoglobin Oxyhemoglobin Sodium Potassium Chloride Carbon Dioxide BUN Creatinine Glucose POC Glucose 119 H 117 H 116 H Calcium ALT Ammonia Total Protein Albumin Xbzxw-5-Rjihfswkg Spghq-7-Obxpsmiki PEP Interpretation Triglycerides Cholesterol LDL Cholesterol Direct HDL Cholesterol PTH Intact Urine Creatinine Urine Total Protein Salicylates 10/19/21 10/20/21 16:18 10:59 WBC RBC Hgb Hct RDW Plt Count Lymph % (Auto) [place] % (Auto) Lymph # (Auto) [place] # (Auto) Seg Neutrophils % Seg Neutrophils # PT INR ABG pO2 ABG Hemoglobin Oxyhemoglobin Sodium Potassium Chloride 96.8 L Carbon Dioxide BUN 29 H Creatinine 3.5 H Glucose 102 H POC Glucose 144 H Calcium ALT Ammonia Total Protein Albumin Ydjkv-8-Lflbjbtuo Mvwth-4-Wpguzckwc PEP Interpretation Triglycerides Cholesterol LDL Cholesterol Direct HDL Cholesterol PTH Intact Urine Creatinine Urine Total Protein Salicylates Allied health notes reviewed: nursing
--- NOTE | 2021-10-21 14:05 | Progress Note ---
Assessment and Plan 10/06: Remains altered but stable on 2L NC, VSS. Still hyperkalemic this am, HD in progress at the bedside. Repeat BMP a hour after HD. CT head/Brain noted. Continue CVA workup, MRI brain, US carotid, and 2D echo pending. Neurology consulted. Patient is hypoglycemic this am, s/p IV insulin for hyperkalemia, continue BG check and hypoglycemic protocol. Will order diet if patient pass bedside swallow. PT/OT/Speech consulted. Left big toe ulcer noted. Per patient's daughter, patient is following with Vascular Surgery outpatient, revascula rization was performed in the [facility] in the past and they were talking of possibly amputating that left toe. No evidence of any infectious process at this time and patient is currently hemodynamicaly stable. Will get wound care for wound management. Follow up with Vascular surgery outpatient for further management. 10/07: Increased confusion and agitation required wrist restraints overnight for safety. Patient is still confused this am, but calm and cooperative. MRI brain p ending. Patient tolerated HD yesterday. Hypertensive this am, resumed home meds and continue PRN antihypertensives. Continue HD per Nephro. Patient is stable for transfer to Telemetry. 10/09/2021; patient is slightly agitated requiring restraints Awaiting return to SNF when medically stable Nephrology initiated hemodialysis, HD as needed If renal decides that patient needs long-term hemodialysis Case management will assist with outpatient HD chair scheduling 10/11/2021; patient is receiving hemodialysis Once nephrology confirms long-term HD, check with case management for outpatient HD placement Patient continues to be confused requiring restraints 10/12/2021; patient is more alert and awake responding appropriately Continue current management, if he continues to be manageable, will try to DC restraints 10/13/2021; today patient is more alert and awake,, CM assisting with outpatient HD placement Hemodialysis per schedule MWF, possible discharge in [facility] facility 2 days if stable 10/14/2021; patient had permacath followed by hemodialysis today tolerated well, Case management assisting with outpatient HD placement 10/15/2021; patient is comfortable no new complaints Awaiting placement/return to [facility] facility 10/16/2021; awaiting to go back to [facility] Awaiting authorization 10/17/2021; patient is medically stable awaiting Placement/return to [facility] pending authorization. 10/18/21: Patient waiting for outpatient HD set up. Waiting authorization for re turn back to [facility]. Continue to follow, patient denies any acute issue today. 10/19/21; pending outpatient HD set up. Patient may going to be discharged home with home health and family supervision if family agrees and insurance does approved correction stay. Need inpatient care for continuous need for hemodialysis. We will continue to follow. 10/20/21: Patient follows command but according to RN and based on my examination patient is oriented to person only. He is unable to take care of himself and needs total care. Need inpatient monitoring for hemodialysis requirement and 24/7 care. 10/21/21: Continue to monitor clinically, patient developed diarrhea. We will monitor for fever curve and CBC. Will order for stool study if continue to have diarrheal episode. Pending placement. Patient is a total care and requiring hemodialysis. Need inpatient care till dialysis arrangement could be made by CM. Otherwise medically stable for discharge. A/P #Acute Metabolic Encephalopathy: Resolved (we will continue close 20 flexion 120 Multifactorial, acute stroke , acute kidney injury , electrolyte abnormalities treat the underlying cause, Supportive care #Acute CVA: Left thalamic infarction Continue aspirin and statin Physical therapy occupational therapy Recommended subacute rehab Awaiting placement/return to [facility] facility MRI brain:extensive chronic and age-related changes punctate focus of increased diffusion weighted signal in the left thalamic area Evidence of recent or acute left thalamic infarction Neurology evaluated once on admission Awaiting placement/return to [facility]/awaiting authorization Acute on Chronic Kidney Disease; transition to end-stage renal disease Nephrology evaluated, initiated hemodialysis on 10/06/21 Patient had permacath placement on 10/14/2021 HD per schedule, MWF, outpatient HD placement in process per CM #Severe Hyperkalemia- resolved -Initial potassium was 7.1, managed appropriately Currently hemodialysis per schedule #Hypertension; moderate control Continue current antihypertensives As needed hydralazine #Big Toe Ulcer, Left/wound dressing. Elevate the limb Supportive care - Left big toe ulcer noted - Per patient's daughter, patient is following with Vascular Surgery outpatient, revascularization was performed in the [facility] in the past and they were considering the possibility of amputating that left toe. - No evidence of any infectious process at this time and patient is currently hemodynamicaly stable - Will get wound care for wound management - Follow up with Vascular Surgery outpatient for further management. #Hypoglycemia-resolved Closely monitor blood sugars Adjust management as needed Closely monitor blood sugars Hypoglycemia resolved #GI/DVT Prophylaxis - PPI- Pepcid - Heparin SubQ - SCDs to bilateral lower extremities while in bed #Advance Care Planning - Disease education data, care plan, diagnoses, and prognosis were discussed with patient's daughter. Patient is a FULL code. Patient's daughter acknowledged understanding and agreement with current care plan. Closely monitor the patient and adjust the management as needed Plan of care reviewed with the patient and his nurse Discharge planning; PT recommended subacute rehab versus [facility] Patient would return to [facility] facility when medically stable Awaiting authorization and hemodialysis placement Subjective Date of service: 10/21/21 Principal diagnosis: AMS; HARDIK; Severe hyperkalemia; Hypertension; CMOP; Mild leukocytosis Interval history: Patient seen and examined. Medical records and medication list reviewed. No acute event overnight noted by the RN. Patient denies any chest pain or difficulty breathing. Patient is tolerating diet. RN reports intermittent confusion, patient is a total care Pending outpatient hemodialysis set up Objective - Exam Narrative Exam: GENERAL: well-developed malnourished -[place] male lying on bed appeared to be in no discomfort. HEENT: Normocephalic. Atraumatic. No conjunctival congestion or icterus. Patient has moist mucous membranes. NECK: Supple. Trachea midline. CHEST/LUNGS: Clear to auscultated bilaterally, breathing nonlabored. No wheezes crackles or rhonchi. HEART/CARDIOVASCULAR: Regular in rate and rhythm. S1 and S2 positive. ABDOMEN: Abdomen is soft, nontender. Patient has normal bowel sounds. SKIN: There is no rash. Warm and dry. NEURO: No focal motor deficit. Follows command. MUSCULOSKELETAL: No joint effusion or tenderness. EXTRIMITY: No edema, no cyanosis or clubbing. PSYCH: Cooperative. Oriented to person only - Constitutional Vitals: Vital Signs - 12hr 10/21/21 10/21/21 10/21/21 03:23 08:18 08:55 Temperature 98.7 F 98.1 F Pulse Rate 68 72 Respiratory 19 16 17 Rate Blood Pressure 95/60 Blood Pressure 127/65 [Right] O2 Sat by Pulse 100 96 100 Oximetry - Labs CBC & Chem 7: 10/14/21 04:40 10/20/21 10:59
[2021-10-21] MEDS: ASPIRIN 81 MG TAB CHEW PO SCH (14:14)
[2021-10-21] MEDS: NIFEdipine XL 90 MG TAB PO SCH (14:14)
[2021-10-21] MEDS: carvediloL 6.25 MG TAB PO SCH ×2 (14:14→22:22)
--- NOTE | 2021-10-21 19:37 | Progress Note ---
Assessment and Plan # Acute Kidney Injury/Kidney Failure: Noted to have creatinine 1.2 earlier this year so suspect acute kidney injury - STAT HD started 10/06 for hyperkalemia, azotemia/uremia; s/p daily HD x3 days given uremia/azotemia - Continue MWF HD for ongoing solute/toxin management - renal ultrasound acutely WNL, no obstruction - urinalysis reviewed, f/u serologies to rule out GN injury, still pending - note PTH high, may have secondary to underlying CKD - strict Is/Os- low urine output noted - assess for renal recovery as able - avoid nephrotoxins - hold diuretics, EMILIANO/ARB for now s/p perm cath--await outpatient hd arrangement # HTN: BP stable currently, per primary team due to HTN, Avoid ARB for now given hyperkalemia, HARDIK. Can restart once HARDIK improves or clearly CKD progression # Altered Mentation: unknown baseline # CVA: care per primary, neurology Subjective Date of service: 10/21/21 Principal diagnosis: AMS; HARDIK; Severe hyperkalemia; Hypertension; CMOP; Mild leukocytosis Interval history: Resting in bed. No issues with HD today. Objective - Exam Narrative Exam: General appearance: no distress, frail EENT: ATNC Neck: Present: neck supple Respiratory: Clear to Ascultation, Normal Exam Heart: regular Gastrointestinal: Present: normoactive bowel sounds Integumentary: no rash, cool/clammy Neurologic: asterixis/tremulous, confused - Vital Signs Vital signs: Vital Signs - 12hr 10/21/21 10/21/21 10/21/21 08:18 08:55 10:30 Temperature 98.1 F 98.7 F Pulse Rate 72 59 L Respiratory 16 17 18 Rate Blood Pressure 129/73 Blood Pressure 127/65 [Right] O2 Sat by Pulse 96 100 Oximetry O2 Sat by Pulse 100 Oximetry [ Anterior Bilateral] 10/21/21 10/21/21 10/21/21 10:45 11:00 11:15 Temperature Pulse Rate 53 L 52 L 55 L Respiratory Rate Blood Pressure 124/76 138/75 141/81 Blood Pressure [Right] O2 Sat by Pulse Oximetry O2 Sat by Pulse Oximetry [ Anterior Bilateral] 10/21/21 10/21/21 10/21/21 11:30 11:45 12:00 Temperature Pulse Rate 56 L 55 L 54 L Respiratory Rate Blood Pressure 134/74 142/72 144/75 Blood Pressure [Right] O2 Sat by Pulse Oximetry O2 Sat by Pulse Oximetry [ Anterior Bilateral] 10/21/21 10/21/21 10/21/21 12:15 12:30 12:45 Temperature Pulse Rate 57 L 52 L 52 L Respiratory Rate Blood Pressure 134/82 144/75 138/78 Blood Pressure [Right] O2 Sat by Pulse Oximetry O2 Sat by Pulse Oximetry [ Anterior Bilateral] 10/21/21 10/21/21 10/21/21 13:00 13:15 13:30 Temperature Pulse Rate 57 L 60 58 L Respiratory Rate Blood Pressure 155/85 148/82 145/78 Blood Pressure [Right] O2 Sat by Pulse Oximetry O2 Sat by Pulse Oximetry [ Anterior Bilateral] 10/21/21 13:45 Temperature 97.2 F L Pulse Rate 54 L Respiratory 18 Rate Blood Pressure 164/88 Blood Pressure [Right] O2 Sat by Pulse Oximetry O2 Sat by Pulse 100 Oximetry [ Anterior Bilateral] - Lab 10/14/21 04:40 10/20/21 10:59 Most recent lab results ABG pH 7.425 pH Units (7.350-7.450) 10/09/21 13:45 ABG pCO2 35.1 mm Hg 10/09/21 13:45 ABG pO2 75.9 mm Hg (80.0-90.0) L 10/09/21 13:45 ABG HCO3 22.5 mmol/L (20.0-26.0) 10/09/21 13:45 ABG O2 Saturation 96.4 % (95.0-99.0) 10/09/21 13:45 Calcium 8.6 mg/dL (8.4-10.2) 10/20/21 10:59 Urine Creatinine 234.3 mg/dL (0.1-20.0) H 10/06/21 14:04 Urine Total Protein 28 mg/dL (5-11.8) H 10/06/21 14:04 Medications & Allergies - Medications Allergies/Adverse Reactions: Allergies No Known Allergies Allergy (Verified 05/09/21 13:32) Home Medications: Home Medications Medication Instructions Recorded Confirmed Last Taken Type Furosemide [Lasix TAB] 40 mg PO QDAY #30 tablet 05/10/21 10/08/21 Unknown Rx carvediloL [Coreg] 6.25 mg PO BID #60 tablet 05/11/21 10/08/21 Unknown Rx NIFEdipine [Nifedipine ER] 60 mg PO DAILY #30 tab 05/13/21 10/08/21 Unknown Rx Valsartan [Diovan] 160 mg PO QDAY #30 tablet 05/13/21 10/08/21 Unknown Rx Active Medications: Generic Name Dose Route Start Last Admin Trade Name Freq PRN Reason Stop Dose Admin Acetaminophen 650 mg 10/06/21 01:42 Acetaminophen 325 Mg Tab PO Q4H PRN Pain MILD(1-3)/Fever >100.5/MARROQUIN Aspirin 81 mg 10/08/21 10:00 10/21/21 14:14 Aspirin 81 Mg Tab Chew PO 81 mg QDAY FREDI Administration Atorvastatin Calcium 40 mg 10/06/21 22:00 10/20/21 23:44 Atorvastatin 40 Mg Tab PO 40 mg QHS FREDI Administration Bisacodyl 10 mg 10/06/21 01:42 Bisacodyl 10 Mg Rect Supp VA QDAY PRN Constipation Carvedilol 6.25 mg 10/07/21 10:00 10/21/21 14:14 Carvedilol 6.25 Mg Tab PO 6.25 mg BID FREDI Administration Dextrose 50 ml 10/06/21 01:42 Dextrose 50% In Water (25gm) 50 Ml Syringe IV Q30MIN PRN Hypoglycemia Protocol Epoetin Cm-epbx 10,000 unit 10/17/21 16:27 Epoetin Cm-Epbx 10,000 Unit/1 Ml Vial IV DESHAWN PRN hemodialysis Famotidine 20 mg 10/07/21 10:00 10/21/21 13:11 Famotidine 20 Mg Tab PO Not Given DAILY [facility] Heparin Sodium (Porcine) 5,000 unit 10/06/21 14:00 10/21/21 14:15 Heparin 5,000 Unit/1 Ml Vial SUB-Q Not Given Q8HR FREDI Hydralazine HCl 10 mg 10/06/21 18:38 10/08/21 00:41 Hydralazine 20 Mg/1 Ml Inj IV 10 mg Q4HR PRN Administration Hypertension Magnesium Hydroxide 30 ml 10/06/21 01:42 Magnesium Hydroxide (Mom) Oral Liqd Udc PO Q4H PRN Constipation Metoclopramide HCl 2.5 mg 10/06/21 01:59 Metoclopramide 10 Mg/10 Ml Oral Liqd PO Q6H PRN Nausea And Vomiting Nifedipine 90 mg 10/09/21 10:00 10/21/21 14:14 Nifedipine Xl 90 Mg Tab PO 90 mg QDAY FREDI Administration Ondansetron HCl 4 mg 10/06/21 01:42 Ondansetron 4 Mg/2 Ml Inj IV Q8H PRN Nausea And Vomiting Promethazine HCl 25 mg 10/06/21 01:42 Promethazine 25 Mg Rect Supp VA Q6H PRN Nausea And Vomiting Sodium Chloride 10 ml 10/06/21 10:00 10/21/21 10:36 Sodium Chloride 0.9% 10 Ml Flush Syringe IV Not Given BID FREDI Sodium Chloride 10 ml 10/06/21 01:42 Sodium Chloride 0.9% 10 Ml Flush Syringe IV PRN PRN LINE FLUSH
[2021-10-22] MEDS: HEPARIN 5,000 UNIT/1 ML VIAL SUB-Q SCH ×3 (05:40→22:11)
[2021-10-22] MEDS: NIFEdipine XL 90 MG TAB PO SCH (09:46)
[2021-10-22] MEDS: carvediloL 6.25 MG TAB PO SCH ×2 (09:46→22:11)
[2021-10-22] MEDS: FAMOTIDINE 20 MG TAB PO SCH (09:46)
[2021-10-22] MEDS: ASPIRIN 81 MG TAB CHEW PO SCH (09:46)
--- NOTE | 2021-10-22 16:45 | Progress Note ---
Assessment and Plan 10/06: Remains altered but stable on 2L NC, VSS. Still hyperkalemic this am, HD in progress at the bedside. Repeat BMP a hour after HD. CT head/Brain noted. Continue CVA workup, MRI brain, US carotid, and 2D echo pending. Neurology consulted. Patient is hypoglycemic this am, s/p IV insulin for hyperkalemia, continue BG check and hypoglycemic protocol. Will order diet if patient pass bedside swallow. PT/OT/Speech consulted. Left big toe ulcer noted. Per patient's daughter, patient is following with Vascular Surgery outpatient, revascula rization was performed in the [facility] in the past and they were talking of possibly amputating that left toe. No evidence of any infectious process at this time and patient is currently hemodynamicaly stable. Will get wound care for wound management. Follow up with Vascular surgery outpatient for further management. 10/07: Increased confusion and agitation required wrist restraints overnight for safety. Patient is still confused this am, but calm and cooperative. MRI brain p ending. Patient tolerated HD yesterday. Hypertensive this am, resumed home meds and continue PRN antihypertensives. Continue HD per Nephro. Patient is stable for transfer to Telemetry. 10/09/2021; patient is slightly agitated requiring restraints Awaiting return to SNF when medically stable Nephrology initiated hemodialysis, HD as needed If renal decides that patient needs long-term hemodialysis Case management will assist with outpatient HD chair scheduling 10/11/2021; patient is receiving hemodialysis Once nephrology confirms long-term HD, check with case management for outpatient HD placement Patient continues to be confused requiring restraints 10/12/2021; patient is more alert and awake responding appropriately Continue current management, if he continues to be manageable, will try to DC restraints 10/13/2021; today patient is more alert and awake,, CM assisting with outpatient HD placement Hemodialysis per schedule MWF, possible discharge in [facility] facility 2 days if stable 10/14/2021; patient had permacath followed by hemodialysis today tolerated well, Case management assisting with outpatient HD placement 10/15/2021; patient is comfortable no new complaints Awaiting placement/return to [facility] facility 10/16/2021; awaiting to go back to [facility] Awaiting authorization 10/17/2021; patient is medically stable awaiting Placement/return to [facility] pending authorization. 10/18/21: Patient waiting for outpatient HD set up. Waiting authorization for re turn back to [facility]. Continue to follow, patient denies any acute issue today. 10/19/21; pending outpatient HD set up. Patient may going to be discharged home with home health and family supervision if family agrees and insurance does approved [facility] stay. Need inpatient care for continuous need for hemodialysis. We will continue to follow. 10/20/21: Patient follows command but according to RN and based on my examination patient is oriented to person only. He is unable to take care of himself and needs total care. Need inpatient monitoring for hemodialysis requirement and 24/7 care. 10/21/21: Continue to monitor clinically, patient developed diarrhea. We will monitor for fever curve and CBC. Will order for stool study if continue to have diarrheal episode. Pending placement. Patient is a total care and requiring hemodialysis. Need inpatient care till dialysis arrangement could be made by CM. Otherwise medically stable for discharge. 10/22/21: Getting hemodialysis per nephro recommendation. Waiting on SNF placement and outpatient hemodialysis set up. RN reported another episode of diarrhea today. Patient without fever or without any elevation of white count. Will place on loperamide as needed for diarrhea. We will also order for stool study. A/P #Acute Metabolic Encephalopathy: Resolved (we will continue close 20 flexion 120 Multifactorial, acute stroke , acute kidney injury , electrolyte abnormalities treat the underlying cause, Supportive care #Acute CVA: Left thalamic infarction Continue aspirin and statin Physical therapy occupational therapy Recommended subacute rehab Awaiting placement/return to [facility] facility MRI brain:extensive chronic and age-related changes punctate focus of increased diffusion weighted signal in the left thalamic area Evidence of recent or acute left thalamic infarction Neurology evaluated once on admission Awaiting placement/return to [facility]/awaiting authorization Acute on Chronic Kidney Disease; transition to end-stage renal disease Nephrology evaluated, initiated hemodialysis on 10/06/21 Patient had permacath placement on 10/14/2021 HD per schedule, MWF, outpatient HD placement in process per CM #Severe Hyperkalemia- resolved -Initial potassium was 7.1, managed appropriately Currently hemodialysis per schedule #Hypertension; moderate control Continue current antihypertensives As needed hydralazine #Big Toe Ulcer, Left/wound dressing. Elevate the limb Supportive care - Left big toe ulcer noted - Per patient's daughter, patient is following with Vascular Surgery outpatient, revascularization was performed in the [facility] in the past and they were considering the possibility of amputating that left toe. - No evidence of any infectious process at this time and patient is currently hemodynamicaly stable - Will get wound care for wound management - Follow up with Vascular Surgery outpatient for further management. #Hypoglycemia-resolved Closely monitor blood sugars Adjust management as needed Closely monitor blood sugars Hypoglycemia resolved #GI/DVT Prophylaxis - PPI- Pepcid - Heparin SubQ - SCDs to bilateral lower extremities while in bed #Advance Care Planning - Disease education data, care plan, diagnoses, and prognosis were discussed with patient's daughter. Patient is a FULL code. Patient's daughter acknowledged understanding and agreement with current care plan. Closely monitor the patient and adjust the management as needed Plan of care reviewed with the patient and his nurse Discharge planning; PT recommended subacute rehab versus [facility] Patient would return to [facility] facility when medically stable Awaiting authorization and hemodialysis placement Subjective Date of service: 10/22/21 Principal diagnosis: AMS; HARDIK; Severe hyperkalemia; Hypertension; CMOP; Mild leukocytosis Interval history: Patient seen and examined. Medical records and medication list reviewed. No acute event overnight noted by the RN. Patient denies any chest pain or difficulty breathing. Patient is tolerating diet. RN reports intermittent confusion, patient is a total care Pending outpatient hemodialysis set up Continue to have diarrhea Objective - Exam Narrative Exam: GENERAL: well-developed malnourished -[place] male lying on bed appeared to be in no discomfort. HEENT: Normocephalic. Atraumatic. No conjunctival congestion or icterus. Patient has moist mucous membranes. NECK: Supple. Trachea midline. CHEST/LUNGS: Clear to auscultated bilaterally, breathing nonlabored. No wheezes crackles or rhonchi. HEART/CARDIOVASCULAR: Regular in rate and rhythm. S1 and S2 positive. ABDOMEN: Abdomen is soft, nontender. Patient has normal bowel sounds. SKIN: There is no rash. Warm and dry. NEURO: No focal motor deficit. Follows command. MUSCULOSKELETAL: No joint effusion or tenderness. EXTRIMITY: No edema, no cyanosis or clubbing. PSYCH: Cooperative. Oriented to person only - Constitutional Vitals: Vital Signs - 12hr 10/22/21 10/22/21 10/22/21 04:58 08:57 10:00 Temperature 98.7 F Pulse Rate 69 Pulse Rate [ 62 Radial] Respiratory 18 18 Rate Blood Pressure 120/61 O2 Sat by Pulse 98 97 97 Oximetry 10/22/21 10/22/21 12:04 16:00 Temperature 98.7 F Pulse Rate 56 L 60 Pulse Rate [ Radial] Respiratory 18 Rate Blood Pressure 126/59 O2 Sat by Pulse 97 Oximetry - Labs CBC & Chem 7: 10/23/21 06:34 10/24/21 10:35 Labs: Abnormal lab results 10/21/21 10/22/21 Range/Units 17:32 00:10 POC Glucose 112 H 114 H (70-105) mg/dL
--- NOTE | 2021-10-22 17:24 | Progress Note ---
Subjective Date of service: 10/22/21 Principal diagnosis: AMS; HARDIK; Severe hyperkalemia; Hypertension; CMOP; Mild leukocytosis Interval history: Patient is seen today for: Acute toxic metabolic encephalopathy; Acute kidney injury; Severe hyperkalemia; Hypertension; CMOP; Mild leukocytosis Seen and examined at bedside; 24hour events reviewed; nursing and respiratory care staff consulted; no adverse overnight events reported to me; resting in bed; awake and alert, denies any chest pain, no shortness of breath, no fevers or chills. In restrains, agitation reported by RN Objective Vital Signs - 12hr 10/22/21 10/22/21 10/22/21 08:57 10:00 12:04 Temperature 98.7 F 98.7 F Pulse Rate 69 56 L Pulse Rate [ 62 Radial] Respiratory 18 18 18 Rate Blood Pressure 120/61 126/59 O2 Sat by Pulse 97 97 97 Oximetry 10/22/21 16:00 Temperature Pulse Rate 60 Pulse Rate [ Radial] Respiratory Rate Blood Pressure O2 Sat by Pulse Oximetry Constitutional: no acute distress, alert, other (still confused.) Eyes: non-icteric ENT: oropharynx moist Neck: supple, no lymphadenopathy Effort: normal Ascultation: Bilateral: diminished breath sounds Percussion: Bilateral: not dull Cardiovascular: regular rate and rhythm Gastrointestinal: normoactive bowel sounds, soft, non-tender, non-distended Integumentary: cellulitis Extremities: other (Stasis dermatitis.) Neurologic: non-focal exam (grossly), pupils equal and round, motor strength normal and Psychiatric: other (Confused. Not oriented.) CBC and BMP: 10/14/21 04:40 10/20/21 10:59 ABG, PT/INR, D-dimer: ABG ABG pH 7.425 pH Units (7.350-7.450) 10/09/21 13:45 ABG pCO2 35.1 mm Hg 10/09/21 13:45 ABG pO2 75.9 mm Hg (80.0-90.0) L 10/09/21 13:45 ABG O2 Saturation 96.4 % (95.0-99.0) 10/09/21 13:45 PT/INR, D-dimer PT 16.6 Sec. (12.2-14.9) H 10/05/21 21:39 INR 1.20 (0.87-1.13) H 10/05/21 21:39 Abnormal lab findings: Abnormal Labs 10/05/21 10/05/21 10/05/21 21:39 21:39 22:41 WBC 11.3 H RBC Hgb Hct RDW 15.3 H Plt Count Lymph % (Auto) 7.6 L [place] % (Auto) 7.7 H Lymph # (Auto) 0.9 L [place] # (Auto) 0.9 H Seg Neutrophils % 83.7 H Seg Neutrophils # 9.5 H PT 16.6 H INR 1.20 H ABG pO2 ABG Hemoglobin Oxyhemoglobin Sodium Potassium Chloride Carbon Dioxide BUN Creatinine Glucose POC Glucose Calcium ALT Ammonia Total Protein Albumin Vyrtr-7-Nrsgvqjiw Chryn-7-Zuchxypuy PEP Interpretation Triglycerides Cholesterol LDL Cholesterol Direct HDL Cholesterol PTH Intact Urine Creatinine Urine Total Protein Salicylates < 0.3 L 10/05/21 10/05/21 10/06/21 22:41 22:41 04:21 WBC RBC Hgb Hct RDW Plt Count Lymph % (Auto) [place] % (Auto) Lymph # (Auto) [place] # (Auto) Seg Neutrophils % Seg Neutrophils # PT INR ABG pO2 ABG Hemoglobin Oxyhemoglobin Sodium Potassium 7.7 H* 6.1 H* D Chloride Carbon Dioxide 19 L BUN 216 H 224 H Creatinine 18.1 H 19.7 H Glucose 117 H 64 L POC Glucose Calcium 11.0 H ALT < 5 L Ammonia 14.0 L Total Protein 8.3 H Albumin Imzhv-4-Exkinzwfd Uxfur-9-Siuncoiib PEP Interpretation Triglycerides Cholesterol LDL Cholesterol Direct HDL Cholesterol PTH Intact Urine Creatinine Urine Total Protein Salicylates 10/06/21 10/06/21 10/06/21 04:21 14:04 17:30 WBC RBC Hgb Hct RDW Plt Count Lymph % (Auto) [place] % (Auto) Lymph # (Auto) [place] # (Auto) Seg Neutrophils % Seg Neutrophils # PT INR ABG pO2 ABG Hemoglobin Oxyhemoglobin Sodium Potassium Chloride Carbon Dioxide BUN 131 H Creatinine 12.7 H Glucose 157 H POC Glucose Calcium ALT Ammonia Total Protein Albumin Wwuvg-3-Lquorbnil Rwlei-2-Epnbihzxs PEP Interpretation Triglycerides 382 H Cholesterol 273 H LDL Cholesterol Direct 151 H HDL Cholesterol 27 L PTH Intact Urine Creatinine 234.3 H Urine Total Protein 28 H Salicylates 10/07/21 10/07/21 10/07/21 05:14 05:14 05:14 WBC RBC 3.37 L Hgb 10.0 L Hct 30.1 L D RDW Plt Count 117 L Lymph % (Auto) 10.4 L [place] % (Auto) 7.9 H Lymph # (Auto) 0.7 L [place] # (Auto) Seg Neutrophils % 80.2 H Seg Neutrophils # PT INR ABG pO2 ABG Hemoglobin Oxyhemoglobin Sodium Potassium Chloride Carbon Dioxide BUN 123 H Creatinine 10.9 H Glucose 119 H POC Glucose Calcium ALT Ammonia Total Protein Albumin Esssl-1-Wxrrubfsq Jhkdm-5-Iseljqqxl PEP Interpretation Triglycerides Cholesterol LDL Cholesterol Direct HDL Cholesterol PTH Intact 333.5 H Urine Creatinine Urine Total Protein Salicylates 10/07/21 10/07/21 10/08/21 05:14 21:43 04:56 WBC RBC 3.59 L Hgb 10.4 L Hct 32.2 L RDW Plt Count 116 L Lymph % (Auto) [place] % (Auto) Lymph # (Auto) [place] # (Auto) Seg Neutrophils % Seg Neutrophils # PT INR ABG pO2 ABG Hemoglobin Oxyhemoglobin Sodium Potassium Chloride Carbon Dioxide BUN Creatinine Glucose POC Glucose 144 H Calcium ALT Ammonia Total Protein Albumin 3.7 L Kkobq-4-Oeumuwfeu 0.4 H Zhdre-4-Nvvkvpdef 1.0 H PEP Interpretation see below H Triglycerides Cholesterol LDL Cholesterol Direct HDL Cholesterol PTH Intact Urine Creatinine Urine Total Protein Salicylates 10/08/21 10/08/21 10/08/21 04:56 11:22 15:36 WBC RBC Hgb Hct RDW Plt Count Lymph % (Auto) [place] % (Auto) Lymph # (Auto) [place] # (Auto) Seg Neutrophils % Seg Neutrophils # PT INR ABG pO2 ABG Hemoglobin Oxyhemoglobin Sodium 147 H Potassium Chloride 109.8 H Carbon Dioxide 20 L BUN 123 H Creatinine 9.7 H Glucose 110 H POC Glucose 145 H 139 H Calcium ALT Ammonia Total Protein Albumin Hatac-5-Ljluvlmgb Xaxzp-2-Civqzdrzf PEP Interpretation Triglycerides Cholesterol LDL Cholesterol Direct HDL Cholesterol PTH Intact Urine Creatinine Urine Total Protein Salicylates 10/09/21 10/09/21 10/09/21 12:36 13:45 18:01 WBC RBC Hgb Hct RDW Plt Count Lymph % (Auto) [place] % (Auto) Lymph # (Auto) [place] # (Auto) Seg Neutrophils % Seg Neutrophils # PT INR ABG pO2 75.9 L ABG Hemoglobin 10.8 L Oxyhemoglobin 94.8 L Sodium Potassium Chloride Carbon Dioxide BUN Creatinine Glucose POC Glucose 121 H 143 H Calcium ALT Ammonia Total Protein Albumin Snzsl-3-Wwsvlpjtu Tkrae-9-Sojpmwucu PEP Interpretation Triglycerides Cholesterol LDL Cholesterol Direct HDL Cholesterol PTH Intact Urine Creatinine Urine Total Protein Salicylates 10/10/21 10/10/21 10/11/21 00:16 05:09 05:13 WBC RBC Hgb Hct RDW Plt Count Lymph % (Auto) [place] % (Auto) Lymph # (Auto) [place] # (Auto) Seg Neutrophils % Seg Neutrophils # PT INR ABG pO2 ABG Hemoglobin Oxyhemoglobin Sodium 147 H Potassium Chloride 109.0 H Carbon Dioxide BUN 103 H 45 H Creatinine 6.8 H 4.6 H Glucose 108 H POC Glucose 108 H Calcium ALT Ammonia Total Protein Albumin Kbvzv-3-Lhiwdhikx Voitv-6-Grpqmkswd PEP Interpretation Triglycerides Cholesterol LDL Cholesterol Direct HDL Cholesterol PTH Intact Urine Creatinine Urine Total Protein Salicylates 10/12/21 10/12/21 10/13/21 04:50 16:31 00:01 WBC RBC Hgb Hct RDW Plt Count Lymph % (Auto) [place] % (Auto) Lymph # (Auto) [place] # (Auto) Seg Neutrophils % Seg Neutrophils # PT INR ABG pO2 ABG Hemoglobin Oxyhemoglobin Sodium Potassium Chloride Carbon Dioxide BUN 52 H Creatinine 4.9 H Glucose POC Glucose 117 H 111 H Calcium ALT Ammonia Total Protein Albumin Capkq-9-Qhnigawnx Qyctg-0-Jwokthlkw PEP Interpretation Triglycerides Cholesterol LDL Cholesterol Direct HDL Cholesterol PTH Intact Urine Creatinine Urine Total Protein Salicylates 10/13/21 10/13/21 10/13/21 12:30 18:27 23:30 WBC RBC Hgb Hct RDW Plt Count Lymph % (Auto) [place] % (Auto) Lymph # (Auto) [place] # (Auto) Seg Neutrophils % Seg Neutrophils # PT INR ABG pO2 ABG Hemoglobin Oxyhemoglobin Sodium Potassium Chloride Carbon Dioxide BUN Creatinine Glucose POC Glucose 116 H 133 H 109 H Calcium ALT Ammonia Total Protein Albumin Vrcfx-0-Cgguzibsq Exzud-0-Jvvqejynf PEP Interpretation Triglycerides Cholesterol LDL Cholesterol Direct HDL Cholesterol PTH Intact Urine Creatinine Urine Total Protein Salicylates 10/14/21 10/14/21 10/14/21 04:40 04:40 17:31 WBC RBC 2.81 L Hgb 8.3 L Hct 25.3 L RDW Plt Count Lymph % (Auto) [place] % (Auto) 14.4 H Lymph # (Auto) [place] # (Auto) Seg Neutrophils % Seg Neutrophils # PT INR ABG pO2 ABG Hemoglobin Oxyhemoglobin Sodium Potassium 3.5 L Chloride Carbon Dioxide BUN 47 H Creatinine 5.0 H Glucose POC Glucose 106 H Calcium ALT Ammonia Total Protein Albumin Pjoat-1-Dbayxsgrj Znkio-4-Rfbeouowq PEP Interpretation Triglycerides Cholesterol LDL Cholesterol Direct HDL Cholesterol PTH Intact Urine Creatinine Urine Total Protein Salicylates 10/16/21 10/18/21 10/18/21 16:02 16:49 21:46 WBC RBC Hgb Hct RDW Plt Count Lymph % (Auto) [place] % (Auto) Lymph # (Auto) [place] # (Auto) Seg Neutrophils % Seg Neutrophils # PT INR ABG pO2 ABG Hemoglobin Oxyhemoglobin Sodium Potassium Chloride Carbon Dioxide BUN Creatinine Glucose POC Glucose 119 H 117 H 116 H Calcium ALT Ammonia Total Protein Albumin Frcoy-2-Putdxdslc Alnya-3-Twvhuzali PEP Interpretation Triglycerides Cholesterol LDL Cholesterol Direct HDL Cholesterol PTH Intact Urine Creatinine Urine Total Protein Salicylates 10/19/21 10/20/21 10/21/21 16:18 10:59 17:32 WBC RBC Hgb Hct RDW Plt Count Lymph % (Auto) [place] % (Auto) Lymph # (Auto) [place] # (Auto) Seg Neutrophils % Seg Neutrophils # PT INR ABG pO2 ABG Hemoglobin Oxyhemoglobin Sodium Potassium Chloride 96.8 L Carbon Dioxide BUN 29 H Creatinine 3.5 H Glucose 102 H POC Glucose 144 H 112 H Calcium ALT Ammonia Total Protein Albumin Dfmbi-7-Vujetjnxu Bqzgj-6-Cygcksqks PEP Interpretation Triglycerides Cholesterol LDL Cholesterol Direct HDL Cholesterol PTH Intact Urine Creatinine Urine Total Protein Salicylates 10/22/21 10/22/21 00:10 16:42 WBC RBC Hgb Hct RDW Plt Count Lymph % (Auto) [place] % (Auto) Lymph # (Auto) [place] # (Auto) Seg Neutrophils % Seg Neutrophils # PT INR ABG pO2 ABG Hemoglobin Oxyhemoglobin Sodium Potassium Chloride Carbon Dioxide BUN Creatinine Glucose POC Glucose 114 H 110 H Calcium ALT Ammonia Total Protein Albumin Imjin-1-Aqsmtzlab Mwtlx-6-Ddgkrbpkp PEP Interpretation Triglycerides Cholesterol LDL Cholesterol Direct HDL Cholesterol PTH Intact Urine Creatinine Urine Total Protein Salicylates Allied health notes reviewed: nursing
--- NOTE | 2021-10-22 17:52 | Progress Note ---
Assessment and Plan # Acute Kidney Injury/Kidney Failure: Noted to have creatinine 1.2 earlier this year so suspect acute kidney injury - STAT HD started 10/06 for hyperkalemia, azotemia/uremia; s/p daily HD x3 days given uremia/azotemia - Continue MWF HD for ongoing solute/toxin management - renal ultrasound acutely WNL, no obstruction - urinalysis reviewed, f/u serologies to rule out GN injury, still pending - note PTH high, may have secondary to underlying CKD - strict Is/Os- low urine output noted - assess for renal recovery as able - avoid nephrotoxins - hold diuretics, EMILIANO/ARB for now s/p perm cath--await outpatient hd arrangement # HTN: BP stable currently, per primary team due to HTN, Avoid ARB for now given hyperkalemia, HARDIK. Can restart once HARDIK improves or clearly CKD progression # Altered Mentation: unknown baseline # CVA: care per primary, neurology Subjective Date of service: 10/22/21 Principal diagnosis: AMS; HARDIK; Severe hyperkalemia; Hypertension; CMOP; Mild leukocytosis Interval history: Resting in bed. Low UOP. Objective - Exam Narrative Exam: General appearance: no distress, frail EENT: ATNC Neck: Present: neck supple Respiratory: Clear to Ascultation, Normal Exam Heart: regular Gastrointestinal: Present: normoactive bowel sounds Integumentary: no rash, cool/clammy Neurologic: asterixis/tremulous, confused - Vital Signs Vital signs: Vital Signs - 12hr 10/22/21 10/22/21 10/22/21 08:57 10:00 12:04 Temperature 98.7 F 98.7 F Pulse Rate 69 56 L Pulse Rate [ 62 Radial] Respiratory 18 18 18 Rate Blood Pressure 120/61 126/59 O2 Sat by Pulse 97 97 97 Oximetry 10/22/21 16:00 Temperature Pulse Rate 60 Pulse Rate [ Radial] Respiratory Rate Blood Pressure O2 Sat by Pulse Oximetry - Lab 10/14/21 04:40 10/20/21 10:59 Most recent lab results ABG pH 7.425 pH Units (7.350-7.450) 10/09/21 13:45 ABG pCO2 35.1 mm Hg 10/09/21 13:45 ABG pO2 75.9 mm Hg (80.0-90.0) L 10/09/21 13:45 ABG HCO3 22.5 mmol/L (20.0-26.0) 10/09/21 13:45 ABG O2 Saturation 96.4 % (95.0-99.0) 10/09/21 13:45 Calcium 8.6 mg/dL (8.4-10.2) 10/20/21 10:59 Urine Creatinine 234.3 mg/dL (0.1-20.0) H 10/06/21 14:04 Urine Total Protein 28 mg/dL (5-11.8) H 10/06/21 14:04 Medications & Allergies - Medications Allergies/Adverse Reactions: Allergies No Known Allergies Allergy (Verified 05/09/21 13:32) Home Medications: Home Medications Medication Instructions Recorded Confirmed Last Taken Type Furosemide [Lasix TAB] 40 mg PO QDAY #30 tablet 05/10/21 10/08/21 Unknown Rx carvediloL [Coreg] 6.25 mg PO BID #60 tablet 05/11/21 10/08/21 Unknown Rx NIFEdipine [Nifedipine ER] 60 mg PO DAILY #30 tab 05/13/21 10/08/21 Unknown Rx Valsartan [Diovan] 160 mg PO QDAY #30 tablet 05/13/21 10/08/21 Unknown Rx Active Medications: Generic Name Dose Route Start Last Admin Trade Name Freq PRN Reason Stop Dose Admin Acetaminophen 650 mg 10/06/21 01:42 Acetaminophen 325 Mg Tab PO Q4H PRN Pain MILD(1-3)/Fever >100.5/MARROQUIN Aspirin 81 mg 10/08/21 10:00 10/22/21 09:46 Aspirin 81 Mg Tab Chew PO 81 mg QDAY FREDI Administration Atorvastatin Calcium 40 mg 10/06/21 22:00 10/21/21 22:22 Atorvastatin 40 Mg Tab PO 40 mg QHS FREDI Administration Bisacodyl 10 mg 10/06/21 01:42 Bisacodyl 10 Mg Rect Supp [place] QDAY PRN Constipation Carvedilol 6.25 mg 10/07/21 10:00 10/22/21 09:46 Carvedilol 6.25 Mg Tab PO 6.25 mg BID FREDI Administration Dextrose 50 ml 10/06/21 01:42 Dextrose 50% In Water (25gm) 50 Ml Syringe IV Q30MIN PRN Hypoglycemia Protocol Epoetin Cm-epbx 10,000 unit 10/17/21 16:27 Epoetin Cm-Epbx 10,000 Unit/1 Ml Vial IV DESHAWN PRN hemodialysis Famotidine 20 mg 10/07/21 10:00 10/22/21 09:46 Famotidine 20 Mg Tab PO 20 mg DAILY FREDI Administration Heparin Sodium (Porcine) 5,000 unit 10/06/21 14:00 10/22/21 13:58 Heparin 5,000 Unit/1 Ml Vial SUB-Q 5,000 unit Q8HR FREDI Administration Hydralazine HCl 10 mg 10/06/21 18:38 10/08/21 00:41 Hydralazine 20 Mg/1 Ml Inj IV 10 mg Q4HR PRN Administration Hypertension Magnesium Hydroxide 30 ml 10/06/21 01:42 Magnesium Hydroxide (Mom) Oral Liqd Udc PO Q4H PRN Constipation Metoclopramide HCl 2.5 mg 10/06/21 01:59 Metoclopramide 10 Mg/10 Ml Oral Liqd PO Q6H PRN Nausea And Vomiting Nifedipine 90 mg 10/09/21 10:00 10/22/21 09:46 Nifedipine Xl 90 Mg Tab PO 90 mg QDAY FREDI Administration Ondansetron HCl 4 mg 10/06/21 01:42 Ondansetron 4 Mg/2 Ml Inj IV Q8H PRN Nausea And Vomiting Promethazine HCl 25 mg 10/06/21 01:42 Promethazine 25 Mg Rect Supp [place] Q6H PRN Nausea And Vomiting Sodium Chloride 10 ml 10/06/21 10:00 10/22/21 09:46 Sodium Chloride 0.9% 10 Ml Flush Syringe IV 10 ml BID FREDI Administration Sodium Chloride 10 ml 10/06/21 01:42 Sodium Chloride 0.9% 10 Ml Flush Syringe IV PRN PRN LINE FLUSH
[2021-10-23] MEDS: HEPARIN 5,000 UNIT/1 ML VIAL SUB-Q SCH ×3 (05:57→21:22)
[2021-10-23 07:13] LABS: Basophils # (Auto) 0.1 K/mm3 (0.0-0.1); Basophils % (Auto) 1.2 % (0.0-1.8); Eosinophils # (Auto) 0.2 K/mm3 (0.0-0.4); Eosinophils % (Auto) 4.4 % (0.0-4.3); Hematocrit 23.2 % (35.5-45.6); Hemoglobin 7.6 gm/dl (11.8-15.2); Lymphocytes # (Auto) 1.9 K/mm3 (1.2-5.4); Lymphocytes % (Auto) 37.6 % (13.4-35.0); Mean Corpuscular HGB Conc 33 % (32-34); Mean Corpuscular Volume 91 fl (84-94); Monocytes # (Auto) 0.7 K/mm3 (0.0-0.8); Monocytes % (Auto) 13.8 % (0.0-7.3); Platelet Count 248 K/mm3 (140-440); Red Blood Count 2.55 M/mm3 (3.65-5.03); Red Cell Distribution Width 14.7 % (13.2-15.2)
[2021-10-23 07:34] LABS: Calcium 8.5 mg/dL (8.4-10.2)
[2021-10-23] MEDS: NIFEdipine XL 90 MG TAB PO SCH (09:19)
[2021-10-23] MEDS: ASPIRIN 81 MG TAB CHEW PO SCH (09:19)
[2021-10-23] MEDS: carvediloL 6.25 MG TAB PO SCH ×2 (09:19→21:22)
[2021-10-23] MEDS: FAMOTIDINE 20 MG TAB PO SCH (09:19)
--- NOTE | 2021-10-23 13:02 | Progress Note ---
Assessment and Plan 10/06: Remains altered but stable on 2L NC, VSS. Still hyperkalemic this am, HD in progress at the bedside. Repeat BMP a hour after HD. CT head/Brain noted. Continue CVA workup, MRI brain, US carotid, and 2D echo pending. Neurology consulted. Patient is hypoglycemic this am, s/p IV insulin for hyperkalemia, continue BG check and hypoglycemic protocol. Will order diet if patient pass bedside swallow. PT/OT/Speech consulted. Left big toe ulcer noted. Per patient's daughter, patient is following with Vascular Surgery outpatient, revascula rization was performed in the [facility] in the past and they were talking of possibly amputating that left toe. No evidence of any infectious process at this time and patient is currently hemodynamicaly stable. Will get wound care for wound management. Follow up with Vascular surgery outpatient for further management. 10/07: Increased confusion and agitation required wrist restraints overnight for safety. Patient is still confused this am, but calm and cooperative. MRI brain p ending. Patient tolerated HD yesterday. Hypertensive this am, resumed home meds and continue PRN antihypertensives. Continue HD per Nephro. Patient is stable for transfer to Telemetry. 10/09/2021; patient is slightly agitated requiring restraints Awaiting return to SNF when medically stable Nephrology initiated hemodialysis, HD as needed If renal decides that patient needs long-term hemodialysis Case management will assist with outpatient HD chair scheduling 10/11/2021; patient is receiving hemodialysis Once nephrology confirms long-term HD, check with case management for outpatient HD placement Patient continues to be confused requiring restraints 10/12/2021; patient is more alert and awake responding appropriately Continue current management, if he continues to be manageable, will try to DC restraints 10/13/2021; today patient is more alert and awake,, CM assisting with outpatient HD placement Hemodialysis per schedule MWF, possible discharge in [facility] facility 2 days if stable 10/14/2021; patient had permacath followed by hemodialysis today tolerated well, Case management assisting with outpatient HD placement 10/15/2021; patient is comfortable no new complaints Awaiting placement/return to [facility] facility 10/16/2021; awaiting to go back to [facility] Awaiting authorization 10/17/2021; patient is medically stable awaiting Placement/return to [facility] pending authorization. 10/18/21: Patient waiting for outpatient HD set up. Waiting [facility]. Continue to follow, patient denies any acute issue today. 10/19/21; pending outpatient HD set up. Patient may going to be discharged home with home health and family supervision if family agrees and insurance does approved longterm stay. Need inpatient care for continuous need for hemodialysis. We will continue to follow. 10/20/21: Patient follows command but according to RN and based on my examination patient is oriented to person only. He is unable to take care of himself and needs total care. Need inpatient monitoring for hemodialysis requirement and 24/7 care. 10/21/21: Continue to monitor clinically, patient developed diarrhea. We will monitor for fever curve and CBC. Will order for stool study if continue to have diarrheal episode. Pending placement. Patient is a total care and requiring hemodialysis. Need inpatient care till dialysis arrangement could be made by CM. Otherwise medically stable for discharge. 10/22/21: Getting hemodialysis per nephro recommendation. Waiting on SNF placement and outpatient hemodialysis set up. RN reported another episode of diarrhea today. Patient without fever or without any elevation of white count. Will place on loperamide as needed for diarrhea. We will also order for stool study. 10/23/21:, Outpatient hemodialysis and SNF placement still pending. Continue to provide supportive care. Vital stable. As needed loperamide for diarrhea. Patient without fever or any elevation of white count. A/P #Acute diarrhea, patient afebrile without any elevation of white count Order for stool studies, empirically placed on positive, loperamide as needed #Acute Metabolic Encephalopathy: Improved, remains intermittently confused Multifactorial, acute stroke , acute kidney injury , electrolyte abnormalities treat the underlying cause, Supportive care #Acute CVA: Left thalamic infarction Continue aspirin and statin Physical therapy occupational therapy Recommended subacute rehab Awaiting placement/return to [facility] facility MRI brain:extensive chronic and age-related changes punctate focus of increased diffusion weighted signal in the left thalamic area Evidence of recent or acute left thalamic infarction Neurology evaluated once on admission Awaiting placement/return to [facility]/awaiting authorization Acute on Chronic Kidney Disease; transition to end-stage renal disease Nephrology evaluated, initiated hemodialysis on 10/06/21 Patient had permacath placement on 10/14/2021 HD per schedule, MWF, outpatient HD placement in process per CM #Severe Hyperkalemia- resolved -Initial potassium was 7.1, managed appropriately Currently hemodialysis per schedule #Hypertension; moderate control Continue current antihypertensives As needed hydralazine #Big Toe Ulcer, Left/wound dressing. Elevate the limb Supportive care - Left big toe ulcer noted - Per patient's daughter, patient is following with Vascular Surgery outpatient, revascularization was performed in the [facility] in the past and they were considering the possibility of amputating that left toe. - No evidence of any infectious process at this time and patient is currently hemodynamicaly stable - Will get wound care for wound management - Follow up with Vascular Surgery outpatient for further management. #Hypoglycemia-resolved Closely monitor blood sugars Adjust management as needed Closely monitor blood sugars Hypoglycemia resolved #GI/DVT Prophylaxis - PPI- Pepcid - Heparin SubQ - SCDs to bilateral lower extremities while in bed #Advance Care Planning - Disease education data, care plan, diagnoses, and prognosis were discussed with patient's daughter. Patient is a FULL code. Patient's daughter acknowledged understanding and agreement with current care plan. Closely monitor the patient and adjust the management as needed Plan of care reviewed with the patient and his nurse Discharge planning; PT recommended subacute rehab versus [facility] Patient would return to [facility] facility when medically stable Awaiting authorization and hemodialysis placement Subjective Date of service: 10/23/21 Principal diagnosis: AMS; HARDIK; Severe hyperkalemia; Hypertension; CMOP; Mild leukocytosis Interval history: Patient seen and examined. Medical records and medication list reviewed. No acute event overnight noted by the RN. Patient denies any chest pain or difficulty breathing. Patient is tolerating diet. RN reports intermittent confusion, patient is a total care Pending outpatient hemodialysis set up Continue to have diarrhea Objective - Exam Narrative Exam: GENERAL: well-developed malnourished -[place] male lying on bed appeared to be in no discomfort. HEENT: Normocephalic. Atraumatic. No conjunctival congestion or icterus. Patient has moist mucous membranes. NECK: Supple. Trachea midline. CHEST/LUNGS: Clear to auscultated bilaterally, breathing nonlabored. No wheezes crackles or rhonchi. HEART/CARDIOVASCULAR: Regular in rate and rhythm. S1 and S2 positive. ABDOMEN: Abdomen is soft, nontender. Patient has normal bowel sounds. SKIN: There is no rash. Warm and dry. NEURO: No focal motor deficit. Follows command. MUSCULOSKELETAL: No joint effusion or tenderness. EXTRIMITY: No edema, no cyanosis or clubbing. PSYCH: Cooperative. Oriented to person only - Constitutional Vitals: Vital Signs - 12hr 10/23/21 10/23/21 10/23/21 04:14 08:12 10:00 Temperature 98.7 F 98.0 F Pulse Rate 60 70 Pulse Rate [ 60 Radial] Respiratory 18 18 18 Rate Blood Pressure 120/63 130/71 O2 Sat by Pulse 97 100 98 Oximetry 10/23/21 10/23/21 11:00 11:37 Temperature 98.2 F Pulse Rate 71 55 L Pulse Rate [ Radial] Respiratory 18 Rate Blood Pressure 133/76 O2 Sat by Pulse 99 Oximetry - Labs CBC & Chem 7: 10/23/21 06:34 10/24/21 10:35 Labs: Abnormal lab results 10/22/21 10/23/21 10/23/21 Range/Units 16:42 06:34 06:34 RBC 2.55 L (3.65-5.03) M/mm3 Hgb 7.6 L (11.8-15.2) gm/dl Hct 23.2 L (35.5-45.6) % Lymph % (Auto) 37.6 H (13.4-35.0) % [place] % (Auto) 13.8 H (0.0-7.3) % Eos % (Auto) 4.4 H (0.0-4.3) % Potassium 3.2 L (3.6-5.0) mmol/L BUN 23 H (9-20) mg/dL Creatinine 3.6 H (0.8-1.3) mg/dL POC Glucose 110 H (70-105) mg/dL
--- NOTE | 2021-10-23 15:21 | Progress Note ---
Assessment and Plan 71-year-old male resident of [facility] with known history of hypertension , CHF sent to the emergency room for evaluation of changes in mental status since yesterday. Patient was said not to be his normal self over the past 24 hours. Patient unable to give any good history at this time most of the information was obtained from the ER staff. Work-up in the emergency room , labs were significant for leukocytosis of 11.3, potassium of 7.7, BUN to 216 and creatinine of 18.1. EKG shows some peaked T waves. CT scan of the head consistent with features of microvascular ischemia bilateral lacunar infarcts within the basal ganglia and left central semiovale. Area of hypoattenuation involving the right temporal lobe. Subacute ischemia is not excluded. MRI recommended for further evaluation. Teleneurology consulted by the ER physician and recommendation was to have CVA work-up. Outside Dealer Sales Representative was also consulted regarding lab findings and EKG findings and admitted dialysis was recommended. Patient sleeping.on room air . O2 saturation 94%. No acute respiratory distress. Patient afebrile. No leukocytosis. Blood pressure 121/66 , Pulse 66, Respirations 18. Chest ray done 10/06/21 reported Mild bibasilar linear atelectatic change. Mild chronic changes. No definite pneumonic infiltrates or effusions. No pneumothorax. Patient is on S/C Heparin and famotidine. - Patient Problems (1) CVA (cerebral vascular accident) Current Visit: Yes Status: Acute Plan to address problem: Management as per primary care and neurology. (2) Altered mental status Current Visit: Yes Status: Acute Plan to address problem: Management as per primary care. (3) HARDIK (acute kidney injury) Current Visit: Yes Status: Acute Plan to address problem: Management as per nephrology. (4) Bilateral lower leg cellulitis Current Visit: No Status: Acute Plan to address problem: Recommend to consult infectious diseases. Subjective Date of service: 10/23/21 Principal diagnosis: AMS; HARDIK; Severe hyperkalemia; Hypertension; CMOP; Mild leukocytosis Interval history: 71-year-old male resident of [facility] with known history of hypertension , CHF sent to the emergency room for evaluation of changes in mental status since yesterday. Patient was said not to be his normal self over the past 24 hours. Patient unable to give any good history at this time most of the information was obtained from the ER staff. Work-up in the emergency room , labs were significant for leukocytosis of 11.3, potassium of 7.7, BUN to 216 and creatinine of 18.1. EKG shows some peaked T waves. CT scan of the head consistent with features of microvascular ischemia bilateral lacunar infarcts within the basal ganglia and left central semiovale. Area of hypoattenuation involving the right temporal lobe. Subacute ischemia is not excluded. MRI recommended for further evaluation. Teleneurology consulted by the ER physician and recommendation was to have CVA work-up. Outside Dealer Sales Representative was also consulted regarding lab findings and EKG findings and admitted dialysis was recommended. Patient sleeping.on room air . O2 saturation 94%. No acute respiratory distress. Patient afebrile. No leukocytosis. Blood pressure 121/66 , Pulse 66, Respirations 18. Chest ray done 10/06/21 reported Mild bibasilar linear atelectatic change. Mild chronic changes. No definite pneumonic infiltrates or effusions. No pneumothorax. Patient is on S/C Heparin and famotidine. Objective Vital Signs - 12hr 10/23/21 10/23/21 10/23/21 04:14 08:12 10:00 Temperature 98.7 F 98.0 F Pulse Rate 60 70 Pulse Rate [ 60 Radial] Respiratory 18 18 18 Rate Blood Pressure 120/63 130/71 O2 Sat by Pulse 97 100 98 Oximetry 10/23/21 10/23/21 11:00 11:37 Temperature 98.2 F Pulse Rate 71 55 L Pulse Rate [ Radial] Respiratory 18 Rate Blood Pressure 133/76 O2 Sat by Pulse 99 Oximetry Constitutional: no acute distress, asleep, other (still confused.) Eyes: non-icteric ENT: oropharynx moist Neck: supple, no lymphadenopathy Effort: normal Ascultation: Bilateral: diminished breath sounds Percussion: Bilateral: not dull Cardiovascular: regular rate and rhythm Gastrointestinal: normoactive bowel sounds, soft, non-tender, non-distended Integumentary: cellulitis Extremities: other (Stasis dermatitis.) Neurologic: non-focal exam (grossly), pupils equal and round, other (Patient sleeping at this time.) Psychiatric: other (Patient sleeping.) CBC and BMP: 10/23/21 06:34 10/23/21 06:34 ABG, PT/INR, D-dimer: ABG ABG pH 7.425 pH Units (7.350-7.450) 10/09/21 13:45 ABG pCO2 35.1 mm Hg 10/09/21 13:45 ABG pO2 75.9 mm Hg (80.0-90.0) L 10/09/21 13:45 ABG O2 Saturation 96.4 % (95.0-99.0) 10/09/21 13:45 PT/INR, D-dimer PT 16.6 Sec. (12.2-14.9) H 10/05/21 21:39 INR 1.20 (0.87-1.13) H 10/05/21 21:39 Abnormal lab findings: Abnormal Labs 10/05/21 10/05/21 10/05/21 21:39 21:39 22:41 WBC 11.3 H RBC Hgb Hct RDW 15.3 H Plt Count Lymph % (Auto) 7.6 L Mcmullen % (Auto) 7.7 H Eos % (Auto) Lymph # (Auto) 0.9 L Mcmullen # (Auto) 0.9 H Seg Neutrophils % 83.7 H Seg Neutrophils # 9.5 H PT 16.6 H INR 1.20 H ABG pO2 ABG Hemoglobin Oxyhemoglobin Sodium Potassium Chloride Carbon Dioxide BUN Creatinine Glucose POC Glucose Calcium ALT Ammonia Total Protein Albumin Hvvje-7-Hlvrxbmvz Wgfwe-4-Jijcieoxz PEP Interpretation Triglycerides Cholesterol LDL Cholesterol Direct HDL Cholesterol PTH Intact Urine Creatinine Urine Total Protein Salicylates < 0.3 L 10/05/21 10/05/21 10/06/21 22:41 22:41 04:21 WBC RBC Hgb Hct RDW Plt Count Lymph % (Auto) Mcmullen % (Auto) Eos % (Auto) Lymph # (Auto) Mcmullen # (Auto) Seg Neutrophils % Seg Neutrophils # PT INR ABG pO2 ABG Hemoglobin Oxyhemoglobin Sodium Potassium 7.7 H* 6.1 H* D Chloride Carbon Dioxide 19 L BUN 216 H 224 H Creatinine 18.1 H 19.7 H Glucose 117 H 64 L POC Glucose Calcium 11.0 H ALT < 5 L Ammonia 14.0 L Total Protein 8.3 H Albumin Kjgjc-0-Imisfgfjz Ezrmt-4-Nmhiwkwyv PEP Interpretation Triglycerides Cholesterol LDL Cholesterol Direct HDL Cholesterol PTH Intact Urine Creatinine Urine Total Protein Salicylates 10/06/21 10/06/21 10/06/21 04:21 14:04 17:30 WBC RBC Hgb Hct RDW Plt Count Lymph % (Auto) Mcmullen % (Auto) Eos % (Auto) Lymph # (Auto) Mcmullen # (Auto) Seg Neutrophils % Seg Neutrophils # PT INR ABG pO2 ABG Hemoglobin Oxyhemoglobin Sodium Potassium Chloride Carbon Dioxide BUN 131 H Creatinine 12.7 H Glucose 157 H POC Glucose Calcium ALT Ammonia Total Protein Albumin Klnje-8-Clhyvvkxa Mtjav-5-Bntxpcbya PEP Interpretation Triglycerides 382 H Cholesterol 273 H LDL Cholesterol Direct 151 H HDL Cholesterol 27 L PTH Intact Urine Creatinine 234.3 H Urine Total Protein 28 H Salicylates 10/07/21 10/07/21 10/07/21 05:14 05:14 05:14 WBC RBC 3.37 L Hgb 10.0 L Hct 30.1 L D RDW Plt Count 117 L Lymph % (Auto) 10.4 L Mcmullen % (Auto) 7.9 H Eos % (Auto) Lymph # (Auto) 0.7 L Mcmullen # (Auto) Seg Neutrophils % 80.2 H Seg Neutrophils # PT INR ABG pO2 ABG Hemoglobin Oxyhemoglobin Sodium Potassium Chloride Carbon Dioxide BUN 123 H Creatinine 10.9 H Glucose 119 H POC Glucose Calcium ALT Ammonia Total Protein Albumin Iuhzq-1-Vddtwqkbh Acqfv-7-Qjfrlqzgw PEP Interpretation Triglycerides Cholesterol LDL Cholesterol Direct HDL Cholesterol PTH Intact 333.5 H Urine Creatinine Urine Total Protein Salicylates 10/07/21 10/07/21 10/08/21 05:14 21:43 04:56 WBC RBC 3.59 L Hgb 10.4 L Hct 32.2 L RDW Plt Count 116 L Lymph % (Auto) Mcmullen % (Auto) Eos % (Auto) Lymph # (Auto) Mcmullen # (Auto) Seg Neutrophils % Seg Neutrophils # PT INR ABG pO2 ABG Hemoglobin Oxyhemoglobin Sodium Potassium Chloride Carbon Dioxide BUN Creatinine Glucose POC Glucose 144 H Calcium ALT Ammonia Total Protein Albumin 3.7 L Rmrjt-3-Jysoegjfv 0.4 H Ncqar-2-Snjuflwym 1.0 H PEP Interpretation see below H Triglycerides Cholesterol LDL Cholesterol Direct HDL Cholesterol PTH Intact Urine Creatinine Urine Total Protein Salicylates 10/08/21 10/08/21 10/08/21 04:56 11:22 15:36 WBC RBC Hgb Hct RDW Plt Count Lymph % (Auto) Mcmullen % (Auto) Eos % (Auto) Lymph # (Auto) Mcmullen # (Auto) Seg Neutrophils % Seg Neutrophils # PT INR ABG pO2 ABG Hemoglobin Oxyhemoglobin Sodium 147 H Potassium Chloride 109.8 H Carbon Dioxide 20 L BUN 123 H Creatinine 9.7 H Glucose 110 H POC Glucose 145 H 139 H Calcium ALT Ammonia Total Protein Albumin Szgbz-6-Rzvpqfqgh Zkjfv-0-Oombififv PEP Interpretation Triglycerides Cholesterol LDL Cholesterol Direct HDL Cholesterol PTH Intact Urine Creatinine Urine Total Protein Salicylates 10/09/21 10/09/21 10/09/21 12:36 13:45 18:01 WBC RBC Hgb Hct RDW Plt Count Lymph % (Auto) Mcmullen % (Auto) Eos % (Auto) Lymph # (Auto) Mcmullen # (Auto) Seg Neutrophils % Seg Neutrophils # PT INR ABG pO2 75.9 L ABG Hemoglobin 10.8 L Oxyhemoglobin 94.8 L Sodium Potassium Chloride Carbon Dioxide BUN Creatinine Glucose POC Glucose 121 H 143 H Calcium ALT Ammonia Total Protein Albumin Piovd-5-Anyhckimp Htnpt-1-Vrlqyqqxk PEP Interpretation Triglycerides Cholesterol LDL Cholesterol Direct HDL Cholesterol PTH Intact Urine Creatinine Urine Total Protein Salicylates 10/10/21 10/10/21 10/11/21 00:16 05:09 05:13 WBC RBC Hgb Hct RDW Plt Count Lymph % (Auto) Mcmullen % (Auto) Eos % (Auto) Lymph # (Auto) Mcmullen # (Auto) Seg Neutrophils % Seg Neutrophils # PT INR ABG pO2 ABG Hemoglobin Oxyhemoglobin Sodium 147 H Potassium Chloride 109.0 H Carbon Dioxide BUN 103 H 45 H Creatinine 6.8 H 4.6 H Glucose 108 H POC Glucose 108 H Calcium ALT Ammonia Total Protein Albumin Bhbeb-4-Hskjlnkmh Fcmwl-1-Tievqurur PEP Interpretation Triglycerides Cholesterol LDL Cholesterol Direct HDL Cholesterol PTH Intact Urine Creatinine Urine Total Protein Salicylates 10/12/21 10/12/21 10/13/21 04:50 16:31 00:01 WBC RBC Hgb Hct RDW Plt Count Lymph % (Auto) Mcmullen % (Auto) Eos % (Auto) Lymph # (Auto) Mcmullen # (Auto) Seg Neutrophils % Seg Neutrophils # PT INR ABG pO2 ABG Hemoglobin Oxyhemoglobin Sodium Potassium Chloride Carbon Dioxide BUN 52 H Creatinine 4.9 H Glucose POC Glucose 117 H 111 H Calcium ALT Ammonia Total Protein Albumin Jiehl-2-Ictoqdamn Qyvgr-4-Tjygmzchw PEP Interpretation Triglycerides Cholesterol LDL Cholesterol Direct HDL Cholesterol PTH Intact Urine Creatinine Urine Total Protein Salicylates 10/13/21 10/13/21 10/13/21 12:30 18:27 23:30 WBC RBC Hgb Hct RDW Plt Count Lymph % (Auto) Mcmullen % (Auto) Eos % (Auto) Lymph # (Auto) Mcmullen # (Auto) Seg Neutrophils % Seg Neutrophils # PT INR ABG pO2 ABG Hemoglobin Oxyhemoglobin Sodium Potassium Chloride Carbon Dioxide BUN Creatinine Glucose POC Glucose 116 H 133 H 109 H Calcium ALT Ammonia Total Protein Albumin Lzjic-3-Oqgvnudlq Pbcka-6-Jddgrqvhd PEP Interpretation Triglycerides Cholesterol LDL Cholesterol Direct HDL Cholesterol PTH Intact Urine Creatinine Urine Total Protein Salicylates 10/14/21 10/14/21 10/14/21 04:40 04:40 17:31 WBC RBC 2.81 L Hgb 8.3 L Hct 25.3 L RDW Plt Count Lymph % (Auto) Mcmullen % (Auto) 14.4 H Eos % (Auto) Lymph # (Auto) Mcmullen # (Auto) Seg Neutrophils % Seg Neutrophils # PT INR ABG pO2 ABG Hemoglobin Oxyhemoglobin Sodium Potassium 3.5 L Chloride Carbon Dioxide BUN 47 H Creatinine 5.0 H Glucose POC Glucose 106 H Calcium ALT Ammonia Total Protein Albumin Woahz-6-Sxyakljmd Bjoiw-2-Dgudfyiyv PEP Interpretation Triglycerides Cholesterol LDL Cholesterol Direct HDL Cholesterol PTH Intact Urine Creatinine Urine Total Protein Salicylates 10/16/21 10/18/21 10/18/21 16:02 16:49 21:46 WBC RBC Hgb Hct RDW Plt Count Lymph % (Auto) Mcmullen % (Auto) Eos % (Auto) Lymph # (Auto) Mcmullen # (Auto) Seg Neutrophils % Seg Neutrophils # PT INR ABG pO2 ABG Hemoglobin Oxyhemoglobin Sodium Potassium Chloride Carbon Dioxide BUN Creatinine Glucose POC Glucose 119 H 117 H 116 H Calcium ALT Ammonia Total Protein Albumin Qjahb-6-Gtgunjali Qrzhv-8-Fchfdpdfc PEP Interpretation Triglycerides Cholesterol LDL Cholesterol Direct HDL Cholesterol PTH Intact Urine Creatinine Urine Total Protein Salicylates 10/19/21 10/20/21 10/21/21 16:18 10:59 17:32 WBC RBC Hgb Hct RDW Plt Count Lymph % (Auto) Mcmullen % (Auto) Eos % (Auto) Lymph # (Auto) Mcmullen # (Auto) Seg Neutrophils % Seg Neutrophils # PT INR ABG pO2 ABG Hemoglobin Oxyhemoglobin Sodium Potassium Chloride 96.8 L Carbon Dioxide BUN 29 H Creatinine 3.5 H Glucose 102 H POC Glucose 144 H 112 H Calcium ALT Ammonia Total Protein Albumin Xqqms-9-Utxzkjwla Dlehi-6-Czaqxoazu PEP Interpretation Triglycerides Cholesterol LDL Cholesterol Direct HDL Cholesterol PTH Intact Urine Creatinine Urine Total Protein Salicylates 10/22/21 10/22/21 10/23/21 00:10 16:42 06:34 WBC RBC 2.55 L Hgb 7.6 L Hct 23.2 L RDW Plt Count Lymph % (Auto) 37.6 H Mcmullen % (Auto) 13.8 H Eos % (Auto) 4.4 H Lymph # (Auto) Mcmullen # (Auto) Seg Neutrophils % Seg Neutrophils # PT INR ABG pO2 ABG Hemoglobin Oxyhemoglobin Sodium Potassium Chloride Carbon Dioxide BUN Creatinine Glucose POC Glucose 114 H 110 H Calcium ALT Ammonia Total Protein Albumin Rdfuz-9-Fbcbrxeqe Rzamj-8-Ephdwqomw PEP Interpretation Triglycerides Cholesterol LDL Cholesterol Direct HDL Cholesterol PTH Intact Urine Creatinine Urine Total Protein Salicylates 10/23/21 06:34 WBC RBC Hgb Hct RDW Plt Count Lymph % (Auto) Mcmullen % (Auto) Eos % (Auto) Lymph # (Auto) Mcmullen # (Auto) Seg Neutrophils % Seg Neutrophils # PT INR ABG pO2 ABG Hemoglobin Oxyhemoglobin Sodium Potassium 3.2 L Chloride Carbon Dioxide BUN 23 H Creatinine 3.6 H Glucose POC Glucose Calcium ALT Ammonia Total Protein Albumin Bxiub-9-Vkgnfpbzm Iiagp-9-Athgjquha PEP Interpretation Triglycerides Cholesterol LDL Cholesterol Direct HDL Cholesterol PTH Intact Urine Creatinine Urine Total Protein Salicylates Allied health notes reviewed: nursing
--- NOTE | 2021-10-23 17:18 | Progress Note ---
Assessment and Plan # Acute Kidney Injury/Kidney Failure: Noted to have creatinine 1.2 earlier this year so suspect acute kidney injury - STAT HD started 10/06 for hyperkalemia, azotemia/uremia; s/p daily HD x3 days given uremia/azotemia - Continue MWF HD for ongoing solute/toxin management - renal ultrasound acutely WNL, no obstruction - urinalysis reviewed, f/u pending serologies to rule out GN injury, still pending - note PTH high, may have secondary to underlying CKD - strict Is/Os- low urine output noted - assess for renal recovery as able - avoid nephrotoxins - hold diuretics, EMILIANO/ARB for now - s/p perm cath 10/14--await outpatient hd arrangement # HTN: BP stable currently, per primary team due to HTN, Avoid ARB for now given hyperkalemia, HARDIK. Can restart once HARDIK improves or clearly CKD progression # Altered Mentation: Mentation has improved. # CVA: care per primary, neurology Subjective Date of service: 10/23/21 Principal diagnosis: AMS; HARDIK; Severe hyperkalemia; Hypertension; CMOP; Mild leukocytosis Interval history: Resting in bed. Low UOP. Objective - Exam Narrative Exam: General appearance: no distress, frail EENT: ATNC Neck: Present: neck supple Respiratory: Clear to Ascultation, Normal Exam Heart: regular Gastrointestinal: Present: normoactive bowel sounds Integumentary: no rash, cool/clammy Neurologic: asterixis/tremulous, confused - Vital Signs Vital signs: Vital Signs - 12hr 10/23/21 10/23/21 10/23/21 08:12 10:00 11:00 Temperature 98.0 F Pulse Rate 70 71 Pulse Rate [ 60 Radial] Respiratory 18 18 Rate Blood Pressure 130/71 O2 Sat by Pulse 100 98 Oximetry 10/23/21 10/23/21 11:37 16:21 Temperature 98.2 F 98.2 F Pulse Rate 55 L 66 Pulse Rate [ Radial] Respiratory 18 18 Rate Blood Pressure 133/76 121/66 O2 Sat by Pulse 99 94 Oximetry - Lab 10/23/21 06:34 10/23/21 06:34 Most recent lab results ABG pH 7.425 pH Units (7.350-7.450) 10/09/21 13:45 ABG pCO2 35.1 mm Hg 10/09/21 13:45 ABG pO2 75.9 mm Hg (80.0-90.0) L 10/09/21 13:45 ABG HCO3 22.5 mmol/L (20.0-26.0) 10/09/21 13:45 ABG O2 Saturation 96.4 % (95.0-99.0) 10/09/21 13:45 Calcium 8.5 mg/dL (8.4-10.2) 10/23/21 06:34 Urine Creatinine 234.3 mg/dL (0.1-20.0) H 10/06/21 14:04 Urine Total Protein 28 mg/dL (5-11.8) H 10/06/21 14:04 Medications & Allergies - Medications Allergies/Adverse Reactions: Allergies No Known Allergies Allergy (Verified 05/09/21 13:32) Home Medications: Home Medications Medication Instructions Recorded Confirmed Last Taken Type Furosemide [Lasix TAB] 40 mg PO QDAY #30 tablet 05/10/21 10/08/21 Unknown Rx carvediloL [Coreg] 6.25 mg PO BID #60 tablet 05/11/21 10/08/21 Unknown Rx NIFEdipine [Nifedipine ER] 60 mg PO DAILY #30 tab 05/13/21 10/08/21 Unknown Rx Valsartan [Diovan] 160 mg PO QDAY #30 tablet 05/13/21 10/08/21 Unknown Rx Active Medications: Generic Name Dose Route Start Last Admin Trade Name Freq PRN Reason Stop Dose Admin Acetaminophen 650 mg 10/06/21 01:42 Acetaminophen 325 Mg Tab PO Q4H PRN Pain MILD(1-3)/Fever >100.5/MARROQUIN Aspirin 81 mg 10/08/21 10:00 10/23/21 09:19 Aspirin 81 Mg Tab Chew PO 81 mg QDAY FREDI Administration Atorvastatin Calcium 40 mg 10/06/21 22:00 10/22/21 22:11 Atorvastatin 40 Mg Tab PO 40 mg QHS FREDI Administration Bisacodyl 10 mg 10/06/21 01:42 Bisacodyl 10 Mg Rect Supp [place] QDAY PRN Constipation Carvedilol 6.25 mg 10/07/21 10:00 10/23/21 09:19 Carvedilol 6.25 Mg Tab PO 6.25 mg BID FREDI Administration Dextrose 50 ml 10/06/21 01:42 Dextrose 50% In Water (25gm) 50 Ml Syringe IV Q30MIN PRN Hypoglycemia Protocol Epoetin Cm-epbx 10,000 unit 10/17/21 16:27 Epoetin Cm-Epbx 10,000 Unit/1 Ml Vial IV DESHAWN PRN hemodialysis Famotidine 20 mg 10/07/21 10:00 10/23/21 09:19 Famotidine 20 Mg Tab PO 20 mg DAILY FREDI Administration Heparin Sodium (Porcine) 5,000 unit 10/06/21 14:00 10/23/21 13:33 Heparin 5,000 Unit/1 Ml Vial SUB-Q 5,000 unit Q8HR FREDI Administration Hydralazine HCl 10 mg 10/06/21 18:38 10/08/21 00:41 Hydralazine 20 Mg/1 Ml Inj IV 10 mg Q4HR PRN Administration Hypertension Magnesium Hydroxide 30 ml 10/06/21 01:42 Magnesium Hydroxide (Mom) Oral Liqd Udc PO Q4H PRN Constipation Metoclopramide HCl 2.5 mg 10/06/21 01:59 Metoclopramide 10 Mg/10 Ml Oral Liqd PO Q6H PRN Nausea And Vomiting Nifedipine 90 mg 10/09/21 10:00 10/23/21 09:19 Nifedipine Xl 90 Mg Tab PO 90 mg QDAY FREDI Administration Ondansetron HCl 4 mg 10/06/21 01:42 Ondansetron 4 Mg/2 Ml Inj IV Q8H PRN Nausea And Vomiting Promethazine HCl 25 mg 10/06/21 01:42 Promethazine 25 Mg Rect Supp VA Q6H PRN Nausea And Vomiting Sodium Chloride 10 ml 10/06/21 10:00 10/23/21 09:19 Sodium Chloride 0.9% 10 Ml Flush Syringe IV 10 ml BID FREDI Administration Sodium Chloride 10 ml 10/06/21 01:42 Sodium Chloride 0.9% 10 Ml Flush Syringe IV PRN PRN LINE FLUSH
[2021-10-24] MEDS: HEPARIN 5,000 UNIT/1 ML VIAL SUB-Q SCH ×3 (06:08→21:32)
[2021-10-24] MEDS: FAMOTIDINE 20 MG TAB PO SCH (09:15)
[2021-10-24] MEDS: carvediloL 6.25 MG TAB PO SCH ×2 (09:15→21:32)
[2021-10-24] MEDS: ASPIRIN 81 MG TAB CHEW PO SCH (09:16)
[2021-10-24] MEDS: NIFEdipine XL 90 MG TAB PO SCH (09:16)
[2021-10-24] MEDS ORDERED: LOPERAMIDE 2 MG CAP PO PRN (11:00)
--- NOTE | 2021-10-24 11:00 | Progress Note ---
Assessment and Plan Impression * Acute Kidney Injury secondary to ?ATN --STAT HD started 10/06 for hyperkalemia, azotemia/uremia; s/p daily HD x3 days given uremia/azotemia --SCr 1.2 earlier this year so suspect acute kidney injury --Permcath insertion on 10/14 * CVA * Hypertension Plan * Continue MWF HD * UF as tolerated * Monitor for evidence of renal recovery * Await pending serologies * Dose medications for renal function * Avoid potential nephrotoxnis * Await outpatient HD clinic placement Subjective Date of service: 10/24/21 Principal diagnosis: AMS; HARDIK; Severe hyperkalemia; Hypertension; CMOP; Mild leukocytosis Interval history: Patient has no complaints today Objective - Vital Signs Vital signs: Vital Signs - 12hr 10/23/21 10/24/21 10/24/21 23:00 00:25 00:37 Temperature 98.7 F Pulse Rate 61 61 Respiratory 18 Rate Blood Pressure 107/61 O2 Sat by Pulse 98 Oximetry - General Appearance General appearance: well-developed, well-nourished EENT: ATNC Respiratory: Present: Clear to Ascultation Cardiology: regular, S1S2 Gastrointestinal: normal, no tenderness, no distended Integumentary: warm and dry Psychiatric: cooperative - Lab 10/23/21 06:34 10/23/21 06:34 Most recent lab results ABG pH 7.425 pH Units (7.350-7.450) 10/09/21 13:45 ABG pCO2 35.1 mm Hg 10/09/21 13:45 ABG pO2 75.9 mm Hg (80.0-90.0) L 10/09/21 13:45 ABG HCO3 22.5 mmol/L (20.0-26.0) 10/09/21 13:45 ABG O2 Saturation 96.4 % (95.0-99.0) 10/09/21 13:45 Calcium 8.5 mg/dL (8.4-10.2) 10/23/21 06:34 Urine Creatinine 234.3 mg/dL (0.1-20.0) H 10/06/21 14:04 Urine Total Protein 28 mg/dL (5-11.8) H 10/06/21 14:04 Medications & Allergies - Medications Allergies/Adverse Reactions: Allergies No Known Allergies Allergy (Verified 05/09/21 13:32) Home Medications: Home Medications Medication Instructions Recorded Confirmed Last Taken Type Furosemide [Lasix TAB] 40 mg PO QDAY #30 tablet 05/10/21 10/08/21 Unknown Rx carvediloL [Coreg] 6.25 mg PO BID #60 tablet 05/11/21 10/08/21 Unknown Rx NIFEdipine [Nifedipine ER] 60 mg PO DAILY #30 tab 05/13/21 10/08/21 Unknown Rx Valsartan [Diovan] 160 mg PO QDAY #30 tablet 05/13/21 10/08/21 Unknown Rx Active Medications: Generic Name Dose Route Start Last Admin Trade Name Freq PRN Reason Stop Dose Admin Acetaminophen 650 mg 10/06/21 01:42 Acetaminophen 325 Mg Tab PO Q4H PRN Pain MILD(1-3)/Fever >100.5/MARROQUIN Aspirin 81 mg 10/08/21 10:00 10/24/21 09:16 Aspirin 81 Mg Tab Chew PO 81 mg QDAY FREDI Administration Atorvastatin Calcium 40 mg 10/06/21 22:00 10/23/21 21:23 Atorvastatin 40 Mg Tab PO 40 mg QHS FREDI Administration Bisacodyl 10 mg 10/06/21 01:42 Bisacodyl 10 Mg Rect Supp [place] QDAY PRN Constipation Carvedilol 6.25 mg 10/07/21 10:00 10/24/21 09:15 Carvedilol 6.25 Mg Tab PO Not Given BID FREDI Dextrose 50 ml 10/06/21 01:42 Dextrose 50% In Water (25gm) 50 Ml Syringe IV Q30MIN PRN Hypoglycemia Protocol Epoetin Cm-epbx 10,000 unit 10/17/21 16:27 Epoetin Cm-Epbx 10,000 Unit/1 Ml Vial IV DESHAWN PRN hemodialysis Famotidine 20 mg 10/07/21 10:00 10/24/21 09:15 Famotidine 20 Mg Tab PO 20 mg DAILY FREDI Administration Heparin Sodium (Porcine) 5,000 unit 10/06/21 14:00 10/24/21 06:08 Heparin 5,000 Unit/1 Ml Vial SUB-Q 5,000 unit Q8HR FREDI Administration Hydralazine HCl 10 mg 10/06/21 18:38 10/08/21 00:41 Hydralazine 20 Mg/1 Ml Inj IV 10 mg Q4HR PRN Administration Hypertension Loperamide HCl 2 mg 10/24/21 11:00 Loperamide 2 Mg Cap PO Q2H PRN Diarrhea Magnesium Hydroxide 30 ml 10/06/21 01:42 Magnesium Hydroxide (Mom) Oral Liqd Udc PO Q4H PRN Constipation Metoclopramide HCl 2.5 mg 10/06/21 01:59 Metoclopramide 10 Mg/10 Ml Oral Liqd PO Q6H PRN Nausea And Vomiting Nifedipine 90 mg 10/09/21 10:00 10/24/21 09:16 Nifedipine Xl 90 Mg Tab PO Not Given QDAY [facility] Ondansetron HCl 4 mg 10/06/21 01:42 Ondansetron 4 Mg/2 Ml Inj IV Q8H PRN Nausea And Vomiting Promethazine HCl 25 mg 10/06/21 01:42 Promethazine 25 Mg Rect Supp [place] Q6H PRN Nausea And Vomiting Sodium Chloride 10 ml 10/06/21 10:00 10/24/21 09:16 Sodium Chloride 0.9% 10 Ml Flush Syringe IV 10 ml BID FREDI Administration Sodium Chloride 10 ml 10/06/21 01:42 Sodium Chloride 0.9% 10 Ml Flush Syringe IV PRN PRN LINE FLUSH
[2021-10-24 11:16] LABS: Calcium 8.6 mg/dL (8.4-10.2)
--- NOTE | 2021-10-24 13:56 | Progress Note ---
Subjective Date of service: 10/24/21 Principal diagnosis: AMS; HARDIK; Severe hyperkalemia; Hypertension; CMOP; Mild leukocytosis Objective - Labs CBC & Chem 7: 10/23/21 06:34 10/24/21 10:35 Labs: Abnormal lab results 10/24/21 Range/Units 10:35 Sodium 135 L (137-145) mmol/L Potassium 3.4 L (3.6-5.0) mmol/L Chloride 96.5 L (98-107) mmol/L BUN 25 H (9-20) mg/dL Creatinine 3.7 H (0.8-1.3) mg/dL Glucose 119 H (75-100) mg/dL
--- NOTE | 2021-10-24 14:01 | Discharge Summary ---
Providers - Providers Date of Admission: 10/06/21 01:43 Date of discharge: 10/24/21 Attending physician: YULIANA SHOEMAKER 10/06/21 Consult to Physician [CONS] Routine Comment: Consulting Provider: BRADEN PHELPS Physician Instructions: Reason For Exam: CVA 10/06/21 01:43 Consult to Dietitian/Nutrition [CONS] Routine Physician Instructions: Reason For Exam: Reason for Consult: Nutrition Recommendations Reason for Consult: Diet education Occupational Therapy Evaluate and Treat [CONS] Routine Comment: Reason For Exam: Neuro deficits Physical Therapy Evaluation and Treat [CONS] Routine Comment: Reason For Exam: Neuro deficits 10/06/21 03:11 Consult to Physician [CONS] Stat Comment: Dr. Lemus spoke with Dr. Pimentel @ [phone] Consulting Provider: SWETHA PIMENTEL Physician Instructions: Reason For Exam: vas cath Consult to Physician [CONS] Stat Comment: Dr. Lemus spoke with Dr. Mckeon @ 0221 Consulting Provider: CAMILLA MCKEON Physician Instructions: Reason For Exam: HARDIK , hyperkalemia 10/06/21 07:30 Speech Therapy Evaluation and Treat [CONS] Routine Reason For Exam: Swallow Screen 10/06/21 10:48 Consult to Wound/ET Nurse [CONS] Routine Reason For Exam: wound eval 10/12/21 12:02 Consult to Case Management [CONS] Routine Services Needed at Discharge: Other Notified:: trimming caser Additional Physician Instructions: outpatient dialysis unit placement 10/13/21 12:39 Consult to Physician [CONS] Routine Comment: Consulting Provider: ANNE MUJICA Physician Instructions: Reason For Exam: perm cath placement 10/21/21 10:19 Physical Therapy Evaluation and Treat [CONS] Routine Comment: Reason For Exam: Debility 10/23/21 10:05 Speech Therapy Evaluation and Treat [CONS] Routine Reason For Exam: swallow evaluation Primary care physician: PROCUREMENT MANAGER Hospitalization Condition: Stable Disposition: 03 RETIREMENT FACILITY Final Discharge Diagnosis (Prints w/discharge instructions): --ESRD Exam - Constitutional Vitals: Temp Pulse Resp BP Pulse Ox 98.7 F 61 18 107/61 98 10/24/21 00:37 10/24/21 00:37 10/24/21 00:25 10/24/21 00:25 10/24/21 00:37 Plan Activity: advance as tolerated Diet: renal Additional Instructions: bmp in week Follow up with: PRIMARY CARE, [Primary Care Provider] - 3-5 Days
--- NOTE | 2021-10-24 20:17 | Progress Note ---
Assessment and Plan 71-year-old male resident of [facility] with known history of hypertension , CHF sent to the emergency room for evaluation of changes in mental status since yesterday. Patient was said not to be his normal self over the past 24 hours. Patient unable to give any good history at this time most of the information was obtained from the ER staff. Work-up in the emergency room , labs were significant for leukocytosis of 11.3, potassium of 7.7, BUN to 216 and creatinine of 18.1. EKG shows some peaked T waves. CT scan of the head consistent with features of microvascular ischemia bilateral lacunar infarcts within the basal ganglia and left central semiovale. Area of hypoattenuation involving the right temporal lobe. Subacute ischemia is not excluded. MRI recommended for further evaluation. Teleneurology consulted by the ER physician and recommendation was to have CVA work-up. Industrial Twisting Machine Operator was also consulted regarding lab findings and EKG findings and admitted dialysis was recommended. Patient awake.on room air . O2 saturation 100%. No acute respiratory distress. Patient afebrile. No leukocytosis. Blood pressure 158/72 , Pulse 82, Respirations 20. Chest ray done 10/06/21 reported Mild bibasilar linear atelectatic change. Mild chronic changes. No definite pneumonic infiltrates or effusions. No pneumothorax. Patient is on S/C Heparin and famotidine. - Patient Problems (1) CVA (cerebral vascular accident) Current Visit: Yes Status: Acute Plan to address problem: Management as per primary care and neurology. (2) Altered mental status Current Visit: Yes Status: Acute Plan to address problem: Management as per primary care. (3) HARDIK (acute kidney injury) Current Visit: Yes Status: Acute Plan to address problem: Management as per nephrology. (4) Bilateral lower leg cellulitis Current Visit: No Status: Acute Plan to address problem: Recommend to consult infectious diseases. Subjective Date of service: 10/24/21 Principal diagnosis: AMS; HARDIK; Severe hyperkalemia; Hypertension; CMOP; Mild leukocytosis Interval history: 71-year-old male resident of [facility] with known history of hypertension , CHF sent to the emergency room for evaluation of changes in mental status since yesterday. Patient was said not to be his normal self over the past 24 hours. Patient unable to give any good history at this time most of the information was obtained from the ER staff. Work-up in the emergency room , labs were significant for leukocytosis of 11.3, potassium of 7.7, BUN to 216 and creatinine of 18.1. EKG shows some peaked T waves. CT scan of the head consistent with features of microvascular ischemia bilateral lacunar infarcts within the basal ganglia and left central semiovale. Area of hypoattenuation involving the right temporal lobe. Subacute ischemia is not excluded. MRI recommended for further evaluation. Teleneurology consulted by the ER physician and recommendation was to have CVA work-up. Industrial Twisting Machine Operator was also consulted regarding lab findings and EKG findings and admitted dialysis was recommended. Patient awake.on room air . O2 saturation 100%. No acute respiratory distress. Patient afebrile. No leukocytosis. Blood pressure 158/72 , Pulse 82, Respirations 20. Chest ray done 10/06/21 reported Mild bibasilar linear atelectatic change. Mild chronic changes. No definite pneumonic infiltrates or effusions. No pneumothorax. Patient is on S/C Heparin and famotidine. Objective Vital Signs - 12hr 10/24/21 10/24/21 10/24/21 10:00 11:00 11:20 Temperature 36.5 F L Pulse Rate 44 L 50 L Pulse Rate [ 60 Radial] Respiratory 18 18 Rate Blood Pressure 134/70 O2 Sat by Pulse 96 Oximetry O2 Sat by Pulse 100 Oximetry [ Anterior Bilateral] 10/24/21 10/24/21 10/24/21 11:25 11:45 12:00 Temperature Pulse Rate 79 51 L 50 L Pulse Rate [ Radial] Respiratory Rate Blood Pressure 146/76 141/76 165/84 O2 Sat by Pulse Oximetry O2 Sat by Pulse Oximetry [ Anterior Bilateral] 10/24/21 10/24/21 10/24/21 12:15 12:30 12:45 Temperature Pulse Rate 48 L 58 L 50 L Pulse Rate [ Radial] Respiratory Rate Blood Pressure 152/79 148/72 162/80 O2 Sat by Pulse Oximetry O2 Sat by Pulse Oximetry [ Anterior Bilateral] 10/24/21 10/24/21 10/24/21 13:00 13:15 13:30 Temperature Pulse Rate 49 L 51 L 48 L Pulse Rate [ Radial] Respiratory Rate Blood Pressure 157/80 166/92 133/72 O2 Sat by Pulse Oximetry O2 Sat by Pulse Oximetry [ Anterior Bilateral] 10/24/21 10/24/21 10/24/21 13:45 14:00 14:15 Temperature Pulse Rate 53 L 48 L 57 L Pulse Rate [ Radial] Respiratory Rate Blood Pressure 142/81 151/77 138/82 O2 Sat by Pulse Oximetry O2 Sat by Pulse Oximetry [ Anterior Bilateral] 10/24/21 14:30 Temperature 98.2 F Pulse Rate 82 Pulse Rate [ Radial] Respiratory 20 Rate Blood Pressure 158/72 O2 Sat by Pulse Oximetry O2 Sat by Pulse 100 Oximetry [ Anterior Bilateral] Constitutional: no acute distress, alert, other (still confused.) Eyes: non-icteric ENT: oropharynx moist Neck: supple, no lymphadenopathy Effort: normal Ascultation: Bilateral: diminished breath sounds Percussion: Bilateral: not dull Cardiovascular: regular rate and rhythm Gastrointestinal: normoactive bowel sounds, soft, non-tender, non-distended Integumentary: cellulitis Extremities: other (Stasis dermatitis.) Neurologic: non-focal exam (grossly), pupils equal and round Psychiatric: other (Patient sleeping.) CBC and BMP: 10/23/21 06:34 10/25/21 08:45 ABG, PT/INR, D-dimer: ABG ABG pH 7.425 pH Units (7.350-7.450) 10/09/21 13:45 ABG pCO2 35.1 mm Hg 10/09/21 13:45 ABG pO2 75.9 mm Hg (80.0-90.0) L 10/09/21 13:45 ABG O2 Saturation 96.4 % (95.0-99.0) 10/09/21 13:45 PT/INR, D-dimer PT 16.6 Sec. (12.2-14.9) H 10/05/21 21:39 INR 1.20 (0.87-1.13) H 10/05/21 21:39 Abnormal lab findings: Abnormal Labs 10/05/21 10/05/21 10/05/21 21:39 21:39 22:41 WBC 11.3 H RBC Hgb Hct RDW 15.3 H Plt Count Lymph % (Auto) 7.6 L Mellette % (Auto) 7.7 H Eos % (Auto) Lymph # (Auto) 0.9 L Mellette # (Auto) 0.9 H Seg Neutrophils % 83.7 H Seg Neutrophils # 9.5 H PT 16.6 H INR 1.20 H ABG pO2 ABG Hemoglobin Oxyhemoglobin Sodium Potassium Chloride Carbon Dioxide BUN Creatinine Glucose POC Glucose Calcium ALT Ammonia Total Protein Albumin Agano-1-Dganzsmhn Sxsdz-3-Tqtbgqjwv PEP Interpretation Triglycerides Cholesterol LDL Cholesterol Direct HDL Cholesterol PTH Intact Urine Creatinine Urine Total Protein Salicylates < 0.3 L 10/05/21 10/05/21 10/06/21 22:41 22:41 04:21 WBC RBC Hgb Hct RDW Plt Count Lymph % (Auto) Mellette % (Auto) Eos % (Auto) Lymph # (Auto) Mellette # (Auto) Seg Neutrophils % Seg Neutrophils # PT INR ABG pO2 ABG Hemoglobin Oxyhemoglobin Sodium Potassium 7.7 H* 6.1 H* D Chloride Carbon Dioxide 19 L BUN 216 H 224 H Creatinine 18.1 H 19.7 H Glucose 117 H 64 L POC Glucose Calcium 11.0 H ALT < 5 L Ammonia 14.0 L Total Protein 8.3 H Albumin Tgynj-4-Mssokwdqa Hycoj-8-Tqfskpmym PEP Interpretation Triglycerides Cholesterol LDL Cholesterol Direct HDL Cholesterol PTH Intact Urine Creatinine Urine Total Protein Salicylates 10/06/21 10/06/21 10/06/21 04:21 14:04 17:30 WBC RBC Hgb Hct RDW Plt Count Lymph % (Auto) Mel[place] % (Auto) Eos % (Auto) Lymph # (Auto) Mel[place] # (Auto) Seg Neutrophils % Seg Neutrophils # PT INR ABG pO2 ABG Hemoglobin Oxyhemoglobin Sodium Potassium Chloride Carbon Dioxide BUN 131 H Creatinine 12.7 H Glucose 157 H POC Glucose Calcium ALT Ammonia Total Protein Albumin Pjlhm-8-Ixfmilhga Rvbaa-2-Jimpvclmg PEP Interpretation Triglycerides 382 H Cholesterol 273 H LDL Cholesterol Direct 151 H HDL Cholesterol 27 L PTH Intact Urine Creatinine 234.3 H Urine Total Protein 28 H Salicylates 10/07/21 10/07/21 10/07/21 05:14 05:14 05:14 WBC RBC 3.37 L Hgb 10.0 L Hct 30.1 L D RDW Plt Count 117 L Lymph % (Auto) 10.4 L Mellette % (Auto) 7.9 H Eos % (Auto) Lymph # (Auto) 0.7 L Mel[place] # (Auto) Seg Neutrophils % 80.2 H Seg Neutrophils # PT INR ABG pO2 ABG Hemoglobin Oxyhemoglobin Sodium Potassium Chloride Carbon Dioxide BUN 123 H Creatinine 10.9 H Glucose 119 H POC Glucose Calcium ALT Ammonia Total Protein Albumin Ndzac-7-Ulahwzfnj Pzfdv-9-Xgdvdoowy PEP Interpretation Triglycerides Cholesterol LDL Cholesterol Direct HDL Cholesterol PTH Intact 333.5 H Urine Creatinine Urine Total Protein Salicylates 10/07/21 10/07/21 10/08/21 05:14 21:43 04:56 WBC RBC 3.59 L Hgb 10.4 L Hct 32.2 L RDW Plt Count 116 L Lymph % (Auto) Mellette % (Auto) Eos % (Auto) Lymph # (Auto) Mellette # (Auto) Seg Neutrophils % Seg Neutrophils # PT INR ABG pO2 ABG Hemoglobin Oxyhemoglobin Sodium Potassium Chloride Carbon Dioxide BUN Creatinine Glucose POC Glucose 144 H Calcium ALT Ammonia Total Protein Albumin 3.7 L Fqvky-9-Jyukndgic 0.4 H Crggd-9-Ldgliporf 1.0 H PEP Interpretation see below H Triglycerides Cholesterol LDL Cholesterol Direct HDL Cholesterol PTH Intact Urine Creatinine Urine Total Protein Salicylates 10/08/21 10/08/21 10/08/21 04:56 11:22 15:36 WBC RBC Hgb Hct RDW Plt Count Lymph % (Auto) Mellette % (Auto) Eos % (Auto) Lymph # (Auto) Mellette # (Auto) Seg Neutrophils % Seg Neutrophils # PT INR ABG pO2 ABG Hemoglobin Oxyhemoglobin Sodium 147 H Potassium Chloride 109.8 H Carbon Dioxide 20 L BUN 123 H Creatinine 9.7 H Glucose 110 H POC Glucose 145 H 139 H Calcium ALT Ammonia Total Protein Albumin Fiihc-4-Xabvyeqzs Wmhhb-8-Cjkalpcyu PEP Interpretation Triglycerides Cholesterol LDL Cholesterol Direct HDL Cholesterol PTH Intact Urine Creatinine Urine Total Protein Salicylates 10/09/21 10/09/21 10/09/21 12:36 13:45 18:01 WBC RBC Hgb Hct RDW Plt Count Lymph % (Auto) Mellette % (Auto) Eos % (Auto) Lymph # (Auto) Mellette # (Auto) Seg Neutrophils % Seg Neutrophils # PT INR ABG pO2 75.9 L ABG Hemoglobin 10.8 L Oxyhemoglobin 94.8 L Sodium Potassium Chloride Carbon Dioxide BUN Creatinine Glucose POC Glucose 121 H 143 H Calcium ALT Ammonia Total Protein Albumin Smfjz-2-Nyhzpavpl Xnail-1-Kesyhabjq PEP Interpretation Triglycerides Cholesterol LDL Cholesterol Direct HDL Cholesterol PTH Intact Urine Creatinine Urine Total Protein Salicylates 10/10/21 10/10/21 10/11/21 00:16 05:09 05:13 WBC RBC Hgb Hct RDW Plt Count Lymph % (Auto) Mellette % (Auto) Eos % (Auto) Lymph # (Auto) Mellette # (Auto) Seg Neutrophils % Seg Neutrophils # PT INR ABG pO2 ABG Hemoglobin Oxyhemoglobin Sodium 147 H Potassium Chloride 109.0 H Carbon Dioxide BUN 103 H 45 H Creatinine 6.8 H 4.6 H Glucose 108 H POC Glucose 108 H Calcium ALT Ammonia Total Protein Albumin Qhzkl-5-Wyfgtlcjz Inwjo-2-Xntxqpcqs PEP Interpretation Triglycerides Cholesterol LDL Cholesterol Direct HDL Cholesterol PTH Intact Urine Creatinine Urine Total Protein Salicylates 10/12/21 10/12/21 10/13/21 04:50 16:31 00:01 WBC RBC Hgb Hct RDW Plt Count Lymph % (Auto) Mellette % (Auto) Eos % (Auto) Lymph # (Auto) Mellette # (Auto) Seg Neutrophils % Seg Neutrophils # PT INR ABG pO2 ABG Hemoglobin Oxyhemoglobin Sodium Potassium Chloride Carbon Dioxide BUN 52 H Creatinine 4.9 H Glucose POC Glucose 117 H 111 H Calcium ALT Ammonia Total Protein Albumin Ipxht-6-Fsywmmudd Qkvgm-7-Albvbuayn PEP Interpretation Triglycerides Cholesterol LDL Cholesterol Direct HDL Cholesterol PTH Intact Urine Creatinine Urine Total Protein Salicylates 10/13/21 10/13/21 10/13/21 12:30 18:27 23:30 WBC RBC Hgb Hct RDW Plt Count Lymph % (Auto) Mellette % (Auto) Eos % (Auto) Lymph # (Auto) Mellette # (Auto) Seg Neutrophils % Seg Neutrophils # PT INR ABG pO2 ABG Hemoglobin Oxyhemoglobin Sodium Potassium Chloride Carbon Dioxide BUN Creatinine Glucose POC Glucose 116 H 133 H 109 H Calcium ALT Ammonia Total Protein Albumin Sknst-2-Mrbslrtvo Avebp-3-Koaxwjszb PEP Interpretation Triglycerides Cholesterol LDL Cholesterol Direct HDL Cholesterol PTH Intact Urine Creatinine Urine Total Protein Salicylates 10/14/21 10/14/21 10/14/21 04:40 04:40 17:31 WBC RBC 2.81 L Hgb 8.3 L Hct 25.3 L RDW Plt Count Lymph % (Auto) Mellette % (Auto) 14.4 H Eos % (Auto) Lymph # (Auto) Mellette # (Auto) Seg Neutrophils % Seg Neutrophils # PT INR ABG pO2 ABG Hemoglobin Oxyhemoglobin Sodium Potassium 3.5 L Chloride Carbon Dioxide BUN 47 H Creatinine 5.0 H Glucose POC Glucose 106 H Calcium ALT Ammonia Total Protein Albumin Kdtgb-4-Jtvkezpdt Rgter-6-Xgugqkleh PEP Interpretation Triglycerides Cholesterol LDL Cholesterol Direct HDL Cholesterol PTH Intact Urine Creatinine Urine Total Protein Salicylates 10/16/21 10/18/21 10/18/21 16:02 16:49 21:46 WBC RBC Hgb Hct RDW Plt Count Lymph % (Auto) [place] % (Auto) Eos % (Auto) Lymph # (Auto) [place] # (Auto) Seg Neutrophils % Seg Neutrophils # PT INR ABG pO2 ABG Hemoglobin Oxyhemoglobin Sodium Potassium Chloride Carbon Dioxide BUN Creatinine Glucose POC Glucose 119 H 117 H 116 H Calcium ALT Ammonia Total Protein Albumin Rvett-4-Hznrqoaob Kfcbw-6-Qcbefttki PEP Interpretation Triglycerides Cholesterol LDL Cholesterol Direct HDL Cholesterol PTH Intact Urine Creatinine Urine Total Protein Salicylates 10/19/21 10/20/21 10/21/21 16:18 10:59 17:32 WBC RBC Hgb Hct RDW Plt Count Lymph % (Auto) [place] % (Auto) Eos % (Auto) Lymph # (Auto) [place] # (Auto) Seg Neutrophils % Seg Neutrophils # PT INR ABG pO2 ABG Hemoglobin Oxyhemoglobin Sodium Potassium Chloride 96.8 L Carbon Dioxide BUN 29 H Creatinine 3.5 H Glucose 102 H POC Glucose 144 H 112 H Calcium ALT Ammonia Total Protein Albumin Pssur-4-Hktqujyju Jwkgi-6-Blfsismgd PEP Interpretation Triglycerides Cholesterol LDL Cholesterol Direct HDL Cholesterol PTH Intact Urine Creatinine Urine Total Protein Salicylates 10/22/21 10/22/21 10/23/21 00:10 16:42 06:34 WBC RBC 2.55 L Hgb 7.6 L Hct 23.2 L RDW Plt Count Lymph % (Auto) 37.6 H Mel[place] % (Auto) 13.8 H Eos % (Auto) 4.4 H Lymph # (Auto) [place] # (Auto) Seg Neutrophils % Seg Neutrophils # PT INR ABG pO2 ABG Hemoglobin Oxyhemoglobin Sodium Potassium Chloride Carbon Dioxide BUN Creatinine Glucose POC Glucose 114 H 110 H Calcium ALT Ammonia Total Protein Albumin Cwyaf-7-Jcjkykfwy Toqle-4-Sbfxyekso PEP Interpretation Triglycerides Cholesterol LDL Cholesterol Direct HDL Cholesterol PTH Intact Urine Creatinine Urine Total Protein Salicylates 10/23/21 10/24/21 06:34 10:35 WBC RBC Hgb Hct RDW Plt Count Lymph % (Auto) [place] % (Auto) Eos % (Auto) Lymph # (Auto) [place] # (Auto) Seg Neutrophils % Seg Neutrophils # PT INR ABG pO2 ABG Hemoglobin Oxyhemoglobin Sodium 135 L Potassium 3.2 L 3.4 L Chloride 96.5 L Carbon Dioxide BUN 23 H 25 H Creatinine 3.6 H 3.7 H Glucose 119 H POC Glucose Calcium ALT Ammonia Total Protein Albumin Umism-2-Ijpvcbhpn Njlhz-8-Cpmnikyma PEP Interpretation Triglycerides Cholesterol LDL Cholesterol Direct HDL Cholesterol PTH Intact Urine Creatinine Urine Total Protein Salicylates Allied health notes reviewed: nursing
--- NOTE | 2021-10-25 01:46 | Progress Note ---
Assessment and Plan 10/06: Remains altered but stable on 2L NC, VSS. Still hyperkalemic this am, HD in progress at the bedside. Repeat BMP a hour after HD. CT head/Brain noted. Continue CVA workup, MRI brain, US carotid, and 2D echo pending. Neurology consulted. Patient is hypoglycemic this am, s/p IV insulin for hyperkalemia, continue BG check and hypoglycemic protocol. Will order diet if patient pass bedside swallow. PT/OT/Speech consulted. Left big toe ulcer noted. Per patient's daughter, patient is following with Vascular Surgery outpatient, revascula rization was performed in the [facility] in the past and they were talking of possibly amputating that left toe. No evidence of any infectious process at this time and patient is currently hemodynamicaly stable. Will get wound care for wound management. Follow up with Vascular surgery outpatient for further management. 10/07: Increased confusion and agitation required wrist restraints overnight for safety. Patient is still confused this am, but calm and cooperative. MRI brain p ending. Patient tolerated HD yesterday. Hypertensive this am, resumed home meds and continue PRN antihypertensives. Continue HD per Nephro. Patient is stable for transfer to Telemetry. 10/09/2021; patient is slightly agitated requiring restraints Awaiting return to SNF when medically stable Nephrology initiated hemodialysis, HD as needed If renal decides that patient needs long-term hemodialysis Case management will assist with outpatient HD chair scheduling 10/11/2021; patient is receiving hemodialysis Once nephrology confirms long-term HD, check with case management for outpatient HD placement Patient continues to be confused requiring restraints 10/12/2021; patient is more alert and awake responding appropriately Continue current management, if he continues to be manageable, will try to DC restraints 10/13/2021; today patient is more alert and awake,, CM assisting with outpatient HD placement Hemodialysis per schedule MWF, possible discharge in [facility] facility 2 days if stable 10/14/2021; patient had permacath followed by hemodialysis today tolerated well, Case management assisting with outpatient HD placement 10/15/2021; patient is comfortable no new complaints Awaiting placement/return to [facility] facility 10/16/2021; awaiting to go back to [facility] Awaiting authorization 10/17/2021; patient is medically stable awaiting Placement/return to [facility] pending authorization. 10/18/21: Patient waiting for outpatient HD set up. Waiting authorization for re turn back to [facility] nursing facility. Continue to follow, patient denies any acute issue today. 10/19/21; pending outpatient HD set up. Patient may going to be discharged home with home health and family supervision if family agrees and insurance does approved halfway stay. Need inpatient care for continuous need for hemodialysis. We will continue to follow. 10/20/21: Patient follows command but according to RN and based on my examination patient is oriented to person only. He is unable to take care of himself and needs total care. Need inpatient monitoring for hemodialysis requirement and 24/7 care. 10/21/21: Continue to monitor clinically, patient developed diarrhea. We will monitor for fever curve and CBC. Will order for stool study if continue to have diarrheal episode. Pending placement. Patient is a total care and requiring hemodialysis. Need inpatient care till dialysis arrangement could be made by CM. Otherwise medically stable for discharge. 10/22/21: Getting hemodialysis per nephro recommendation. Waiting on SNF placement and outpatient hemodialysis set up. RN reported another episode of diarrhea today. Patient without fever or without any elevation of white count. Will place on loperamide as needed for diarrhea. We will also order for stool study. 10/23/21:, Outpatient hemodialysis and SNF placement still pending. Continue to provide supportive care. Vital stable. As needed loperamide for diarrhea. Patient without fever or any elevation of white count. 10/24: Outpatient hemodialysis set has been arranged. Patient was planned to discharge today after hemodialysis but does not have a bed ready until tomorrow. Continue to follow clinicaly, follow-up sleep study. Continue loperamide and flagyl. Plan to discharge patient tomorrow to SNF with outpatient dialysis set up A/P #Acute diarrhea, patient afebrile without any elevation of white count Order for stool studies, empirically placed on positive, loperamide as needed #Acute Metabolic Encephalopathy: Improved, remains intermittently confused Multifactorial, acute stroke , acute kidney injury , electrolyte abnormalities treat the underlying cause, Supportive care #Acute CVA: Left thalamic infarction Continue aspirin and statin Physical therapy occupational therapy Recommended subacute rehab Awaiting placement/return to [facility] facility MRI brain:extensive chronic and age-related changes punctate focus of increased diffusion weighted signal in the left thalamic area Evidence of recent or acute left thalamic infarction Neurology evaluated once on admission Awaiting placement/return to [facility]/awaiting authorization Acute on Chronic Kidney Disease; transition to end-stage renal disease Nephrology evaluated, initiated hemodialysis on 10/06/21 Patient had permacath placement on 10/14/2021 HD per schedule, MWF, outpatient HD placement in process per CM #Severe Hyperkalemia- resolved -Initial potassium was 7.1, managed appropriately Currently hemodialysis per schedule #Hypertension; moderate control Continue current antihypertensives As needed hydralazine #Big Toe Ulcer, Left/wound dressing. Elevate the limb Supportive care - Left big toe ulcer noted - Per patient's daughter, patient is following with Vascular Surgery outpatient, revascularization was performed in the [facility] in the past and they were considering the possibility of amputating that left toe. - No evidence of any infectious process at this time and patient is currently hemodynamicaly stable - Will get wound care for wound management - Follow up with Vascular Surgery outpatient for further management. #Hypoglycemia-resolved Closely monitor blood sugars Adjust management as needed Closely monitor blood sugars Hypoglycemia resolved #GI/DVT Prophylaxis - PPI- Pepcid - Heparin SubQ - SCDs to bilateral lower extremities while in bed #Advance Care Planning - Disease education data, care plan, diagnoses, and prognosis were discussed with patient's daughter. Patient is a FULL code. Patient's daughter acknowledged understanding and agreement with current care plan. Closely monitor the patient and adjust the management as needed Plan of care reviewed with the patient and his nurse Discharge planning; PT recommended subacute rehab versus [facility] facility Patient would return to [facility] facility when medically stable Awaiting authorization and hemodialysis placement Subjective Date of service: 10/24/21 Principal diagnosis: AMS; HARDIK; Severe hyperkalemia; Hypertension; CMOP; Mild leukocytosis Interval history: Patient seen and examined. Medical records and medication list reviewed. No acute event overnight noted by the RN. Patient denies any chest pain or difficulty breathing. Patient is tolerating diet. RN reports intermittent confusion, patient is a total care arranged outpatient hemodialysis set up Objective - Exam Narrative Exam: GENERAL: well-developed malnourished -[place] male lying on bed appeared to be in no discomfort. HEENT: Normocephalic. Atraumatic. No conjunctival congestion or icterus. Patient has moist mucous membranes. NECK: Supple. Trachea midline. CHEST/LUNGS: Clear to auscultated bilaterally, breathing nonlabored. No wheezes crackles or rhonchi. HEART/CARDIOVASCULAR: Regular in rate and rhythm. S1 and S2 positive. ABDOMEN: Abdomen is soft, nontender. Patient has normal bowel sounds. SKIN: There is no rash. Warm and dry. NEURO: No focal motor deficit. Follows command. MUSCULOSKELETAL: No joint effusion or tenderness. EXTRIMITY: No edema, no cyanosis or clubbing. PSYCH: Cooperative. Oriented to person only - Constitutional Vitals: Vital Signs - 12hr 10/24/21 10/24/21 10/24/21 13:45 14:00 14:15 Temperature Pulse Rate 53 L 48 L 57 L Pulse Rate [ Radial] Respiratory Rate Blood Pressure 142/81 151/77 138/82 O2 Sat by Pulse Oximetry O2 Sat by Pulse Oximetry [ Anterior Bilateral] 10/24/21 10/24/21 10/24/21 14:30 21:32 22:00 Temperature 98.2 F Pulse Rate 82 54 L Pulse Rate [ 61 Radial] Respiratory 20 18 Rate Blood Pressure 158/72 136/77 O2 Sat by Pulse 98 Oximetry O2 Sat by Pulse 100 Oximetry [ Anterior Bilateral] - Labs CBC & Chem 7: 10/23/21 06:34 10/24/21 10:35 Labs: Abnormal lab results 10/24/21 Range/Units 10:35 Sodium 135 L (137-145) mmol/L Potassium 3.4 L (3.6-5.0) mmol/L Chloride 96.5 L (98-107) mmol/L BUN 25 H (9-20) mg/dL Creatinine 3.7 H (0.8-1.3) mg/dL Glucose 119 H (75-100) mg/dL
[2021-10-25] MEDS: HEPARIN 5,000 UNIT/1 ML VIAL SUB-Q SCH ×3 (06:28→21:49)
--- NOTE | 2021-10-25 09:04 | Progress Note ---
Assessment and Plan Impression * Acute Kidney Injury secondary to ?ATN --STAT HD started 10/06 for hyperkalemia, azotemia/uremia; s/p daily HD x3 days given uremia/azotemia --SCr 1.2 earlier this year so suspect acute kidney injury --Permcath insertion on 10/14 * CVA * Hypertension Plan * No acute need for HD today. Patient dialyzed yesterday. Will plan for next treatment on * Monitor for evidence of renal recovery * Await pending serologies * Dose medications for renal function * Avoid potential nephrotoxnis * Outpatient HD clinic placement at [facility] * Stable for discharge from a renal standpoint Subjective Date of service: 10/25/21 Principal diagnosis: AMS; HARDIK; Severe hyperkalemia; Hypertension; CMOP; Mild leukocytosis Interval history: Patient has no complaints today Objective - Vital Signs Vital signs: Vital Signs - 12hr 10/24/21 10/24/21 10/24/21 21:32 22:00 23:00 Pulse Rate 54 L 48 L Pulse Rate [ 61 Radial] Respiratory 18 Rate Blood Pressure 136/77 O2 Sat by Pulse 98 Oximetry - General Appearance General appearance: well-developed, frail EENT: ATNC Respiratory: Present: Clear to Ascultation Cardiology: regular, S1S2 Gastrointestinal: normal, no tenderness, no distended Integumentary: no rash Neurologic: alert and oriented x3 Musculoskeletal: other (no edema) Psychiatric: cooperative - Lab 10/23/21 06:34 10/25/21 08:45 Most recent lab results ABG pH 7.425 pH Units (7.350-7.450) 10/09/21 13:45 ABG pCO2 35.1 mm Hg 10/09/21 13:45 ABG pO2 75.9 mm Hg (80.0-90.0) L 10/09/21 13:45 ABG HCO3 22.5 mmol/L (20.0-26.0) 10/09/21 13:45 ABG O2 Saturation 96.4 % (95.0-99.0) 10/09/21 13:45 Calcium 8.6 mg/dL (8.4-10.2) 10/24/21 10:35 Urine Creatinine 234.3 mg/dL (0.1-20.0) H 10/06/21 14:04 Urine Total Protein 28 mg/dL (5-11.8) H 10/06/21 14:04 Medications & Allergies - Medications Allergies/Adverse Reactions: Allergies No Known Allergies Allergy (Verified 05/09/21 13:32) Home Medications: Home Medications Medication Instructions Recorded Confirmed Last Taken Type carvediloL [Coreg] 6.25 mg PO BID #60 tablet 05/11/21 10/08/21 Unknown Rx Aspirin [Aspirin BABY CHEW TAB] 81 mg PO QDAY tab.chew 10/24/21 Unknown Rx AtorvaSTATin [Lipitor] 40 mg PO QHS tablet 10/24/21 Unknown Rx Loperamide [Imodium] 2 mg PO Q2H PRN capsule 10/24/21 Unknown Rx Metoclopramide [Reglan ORAL LIQ] 2.5 mg PO Q6H PRN oral.liqd 10/24/21 Unknown Rx NIFEdipine XL [Procardia Xl] 90 mg PO QDAY tablet 10/24/21 Unknown Rx Promethazine [Phenergan SUPPOS] 25 mg [place] Q6H PRN supp.rect 10/24/21 Unknown Rx Active Medications: Generic Name Dose Route Start Last Admin Trade Name Freq PRN Reason Stop Dose Admin Acetaminophen 650 mg 10/06/21 01:42 Acetaminophen 325 Mg Tab PO Q4H PRN Pain MILD(1-3)/Fever >100.5/MARROQUIN Aspirin 81 mg 10/08/21 10:00 10/24/21 09:16 Aspirin 81 Mg Tab Chew PO 81 mg QDAY FREDI Administration Atorvastatin Calcium 40 mg 10/06/21 22:00 10/24/21 21:32 Atorvastatin 40 Mg Tab PO 40 mg QHS FREDI Administration Bisacodyl 10 mg 10/06/21 01:42 Bisacodyl 10 Mg Rect Supp TX QDAY PRN Constipation Carvedilol 6.25 mg 10/07/21 10:00 10/24/21 21:32 Carvedilol 6.25 Mg Tab PO 6.25 mg BID FREDI Administration Dextrose 50 ml 10/06/21 01:42 Dextrose 50% In Water (25gm) 50 Ml Syringe IV Q30MIN PRN Hypoglycemia Protocol Epoetin Cm-epbx 10,000 unit 10/17/21 16:27 Epoetin Cm-Epbx 10,000 Unit/1 Ml Vial IV DESHAWN PRN hemodialysis Famotidine 20 mg 10/07/21 10:00 10/24/21 09:15 Famotidine 20 Mg Tab PO 20 mg DAILY FREDI Administration Heparin Sodium (Porcine) 5,000 unit 10/06/21 14:00 10/25/21 06:28 Heparin 5,000 Unit/1 Ml Vial SUB-Q 5,000 unit Q8HR FREDI Administration Hydralazine HCl 10 mg 10/06/21 18:38 10/08/21 00:41 Hydralazine 20 Mg/1 Ml Inj IV 10 mg Q4HR PRN Administration Hypertension Loperamide HCl 2 mg 10/24/21 11:00 Loperamide 2 Mg Cap PO Q2H PRN Diarrhea Magnesium Hydroxide 30 ml 10/06/21 01:42 Magnesium Hydroxide (Mom) Oral Liqd Udc PO Q4H PRN Constipation Metoclopramide HCl 2.5 mg 10/06/21 01:59 Metoclopramide 10 Mg/10 Ml Oral Liqd PO Q6H PRN Nausea And Vomiting Nifedipine 90 mg 10/09/21 10:00 10/24/21 09:16 Nifedipine Xl 90 Mg Tab PO Not Given QDAY [facility] Ondansetron HCl 4 mg 10/06/21 01:42 Ondansetron 4 Mg/2 Ml Inj IV Q8H PRN Nausea And Vomiting Promethazine HCl 25 mg 10/06/21 01:42 Promethazine 25 Mg Rect Supp [place] Q6H PRN Nausea And Vomiting Sodium Chloride 10 ml 10/06/21 10:00 10/24/21 21:33 Sodium Chloride 0.9% 10 Ml Flush Syringe IV 10 ml BID FREDI Administration Sodium Chloride 10 ml 10/06/21 01:42 Sodium Chloride 0.9% 10 Ml Flush Syringe IV PRN PRN LINE FLUSH
[2021-10-25 09:30] LABS: Calcium 8.6 mg/dL (8.4-10.2)
[2021-10-25] MEDS: ASPIRIN 81 MG TAB CHEW PO SCH (10:54)
[2021-10-25] MEDS: FAMOTIDINE 20 MG TAB PO SCH (10:54)
[2021-10-25] MEDS: carvediloL 6.25 MG TAB PO SCH ×2 (10:54→21:48)
[2021-10-25] MEDS: NIFEdipine XL 90 MG TAB PO SCH (10:54)
--- NOTE | 2021-10-25 14:09 | Discharge Summary ---
Providers - Providers Date of Admission: 10/06/21 01:43 Date of discharge: 10/25/21 Attending physician: LEAH ROSENTHAL MD 10/06/21 Consult to Physician [CONS] Routine Comment: Consulting Provider: BRADEN PHELPS Physician Instructions: Reason For Exam: CVA 10/06/21 01:43 Consult to Dietitian/Nutrition [CONS] Routine Physician Instructions: Reason For Exam: Reason for Consult: Nutrition Recommendations Reason for Consult: Diet education Occupational Therapy Evaluate and Treat [CONS] Routine Comment: Reason For Exam: Neuro deficits Physical Therapy Evaluation and Treat [CONS] Routine Comment: Reason For Exam: Neuro deficits 10/06/21 03:11 Consult to Physician [CONS] Stat Comment: Dr. Lemus spoke with Dr. Pimentel @ [phone] Consulting Provider: SWETHA PIMENTEL Physician Instructions: Reason For Exam: vas cath Consult to Physician [CONS] Stat Comment: Dr. Lemus spoke with Dr. Mckeon @ 0221 Consulting Provider: CAMILLA MCKEON Physician Instructions: Reason For Exam: HARDIK , hyperkalemia 10/06/21 07:30 Speech Therapy Evaluation and Treat [CONS] Routine Reason For Exam: Swallow Screen 10/06/21 10:48 Consult to Wound/ET Nurse [CONS] Routine Reason For Exam: wound eval 10/12/21 12:02 Consult to Case Management [CONS] Routine Services Needed at Discharge: Other Notified:: case folder Additional Physician Instructions: outpatient dialysis unit placement 10/13/21 12:39 Consult to Physician [CONS] Routine Comment: Consulting Provider: ANNE MUJICA Physician Instructions: Reason For Exam: perm cath placement 10/21/21 10:19 Physical Therapy Evaluation and Treat [CONS] Routine Comment: Reason For Exam: Debility 10/23/21 10:05 Speech Therapy Evaluation and Treat [CONS] Routine Reason For Exam: swallow evaluation Primary care physician: FORENSIC TOXICOLOGIST Hospitalization Reason for admission: Acute metabolic encephalopathy, left thalamic infarction, HARDIK 2/2 ATN Condition: Stable Pertinent studies: Reviewed. Procedures: Permacath placement Hospital course: 10/06: Remains altered but stable on 2L NC, VSS. Still hyperkalemic this am, HD in progress at the bedside. Repeat BMP a hour after HD. CT head/Brain noted. Continue CVA workup, MRI brain, US carotid, and 2D echo pending. Neurology consulted. Patient is hypoglycemic this am, s/p IV insulin for hyperkalemia, continue BG check and hypoglycemic protocol. Will order diet if patient pass bedside swallow. PT/OT/Speech consulted. Left big toe ulcer noted. Per patient's daughter, patient is following with Vascular Surgery outpatient, revascularization was performed in the [facility] in the past and they were talking of possibly amputating that left toe. No evidence of any infectious process at this time and patient is currently hemodynamicaly stable. Will get wound care for wound management. Follow up with Vascular surgery outpatient for further management. 10/07: Increased confusion and agitation required wrist restraints overnight for safety. Patient is still confused this am, but calm and cooperative. MRI brain pending. Patient tolerated HD yesterday. Hypertensive this am, resumed home meds and continue PRN antihypertensives. Continue HD per Nephro. Patient is stable for transfer to Telemetry. 10/09/2021; patient is slightly agitated requiring restraints Awaiting return to SNF when medically stable Nephrology initiated hemodialysis, HD as needed If renal decides that patient needs long-term hemodialysis Case management will assist with outpatient HD chair scheduling 10/11/2021; patient is receiving hemodialysis Once nephrology confirms long-term HD, check with case management for outpatient HD placement Patient continues to be confused requiring restraints 10/12/2021; patient is more alert and awake responding appropriately Continue current management, if he continues to be manageable, will try to DC restraints 10/13/2021; today patient is more alert and awake,, CM assisting with outpatient HD placement Hemodialysis per schedule MWF, possible discharge in [facility] facility 2 days if stable 10/14/2021; patient had permacath followed by hemodialysis today tolerated well, Case management assisting with outpatient HD placement 10/15/2021; patient is comfortable no new complaints Awaiting placement/return to [facility] 10/16/2021; awaiting to go back to [facility] Awaiting authorization 10/17/2021; patient is medically stable awaiting Placement/return to [facility] pending authorization. 10/18/21: Patient waiting for outpatient HD set up. Waiting authorization for return back to [facility]. Continue to follow, patient denies any acute issue today. 10/19/21; pending outpatient HD set up. Patient may going to be discharged home with home health and family supervision if family agrees and insurance does approved group home stay. Need inpatient care for continuous need for hemodialysis. We will continue to follow. 10/20/21: Patient follows command but according to RN and based on my examination patient is oriented to person only. He is unable to take care of himself and needs total care. Need inpatient monitoring for hemodialysis requirement and 24/7 care. 10/21/21: Continue to monitor clinically, patient developed diarrhea. We will monitor for fever curve and CBC. Will order for stool study if continue to have diarrheal episode. Pending placement. Patient is a total care and requiring hemodialysis. Need inpatient care till dialysis arrangement could be made by CM. Otherwise medically stable for discharge. 10/22/21: Getting hemodialysis per nephro recommendation. Waiting on SNF placement and outpatient hemodialysis set up. RN reported another episode of diarrhea today. Patient without fever or without any elevation of white count. Will place on loperamide as needed for diarrhea. We will also order for stool study. 10/23/21:, Outpatient hemodialysis and SNF placement still pending. Continue to provide supportive care. Vital stable. As needed loperamide for diarrhea. Patient without fever or any elevation of white count. 10/24: Outpatient hemodialysis set has been arranged. Patient was planned to discharge today after hemodialysis but does not have a bed ready until tomorrow. Continue to follow clinicaly, follow-up sleep study. Continue loperamide and flagyl. Plan to discharge patient tomorrow to SNF with outpatient dialysis set up Disposition: [facility] Final Discharge Diagnosis (Prints w/discharge instructions): Acute metabolic encephalopathy, left thalamic infarction, HARDIK secondary to ATN, severe hyperkal emia, hypertension, left great toe ulcer, hypoglycemia, mild protein caloric malnutrition Time spent for discharge: 45 min Core Measure Documentation - Palliative Care Palliative Care/ Comfort Measures: Not Applicable - Core Measures Any of the following diagnoses?: stroke - Stroke Discharge Requirements Statin for LDL = or >70 mg/dl on DC: Yes Anticoag for atrial fib/atrial flutter: Not Applicable Reason for no anticoag for AF/F on DC: Not Indicated Antithrombotic for ischemic stroke: No Reason for no antithrombotic on DC: Not Indicated Exam - Constitutional Vitals: Temp Pulse Resp BP Pulse Ox 98.3 F 62 18 124/70 99 10/25/21 08:31 10/25/21 08:31 10/25/21 00:26 10/25/21 08:31 10/25/21 08:31 General appearance: Present: no acute distress, cachectic - EENT Eyes: Present: PERRL, EOM intact ENT: hearing intact, clear oral mucosa - Neck Neck: Present: supple, normal ROM, other (Permacath in right upper chest) - Respiratory Respiratory effort: normal Respiratory: bilateral: CTA - Cardiovascular Rhythm: regular Heart Sounds: Present: S1 & S2 - Extremities Extremities: no ischemia, pulses intact, pulses symmetrical, No edema, normal temperature, normal color Peripheral Pulses: within normal limits - Abdominal General gastrointestinal: Present: soft, non-tender, non-distended, normal bowel sounds Male genitourinary: Present: deferred - Rectal Rectal Exam: deferred - Integumentary Integumentary: Present: clear, warm, dry - Musculoskeletal Musculoskeletal: generalized weakness - Psychiatric Psychiatric: appropriate mood/affect, cooperative - Neurologic Neurologic: CNII-XII intact, moves all extremities - Allied Health Allied health notes reviewed: nursing Plan Activity: advance as tolerated Diet: low fat, renal Additional Instructions: 10/06: Remains altered but stable on 2L NC, VSS. Still hyperkalemic this am, HD in progress at the bedside. Repeat BMP a hour after HD. CT head/Brain noted. Continue CVA workup, MRI brain, US carotid, and 2D echo pending. Neurology consulted. Patient is hypoglycemic this am, s/p IV insulin for hyperkalemia, continue BG check and hypoglycemic protocol. Will order diet if patient pass bedside swallow. PT/OT/Speech consulted. Left big toe ulcer noted. Per patient's daughter, patient is following with Vascular Surgery outpatient, revascularization was performed in the [facility] in the past and they were talking of possibly amputating that left toe. No evidence of any infectious process at this time and patient is currently hemodynamicaly stable. Will get wound care for wound management. Follow up with Vascular surgery outpatient for further management. 10/07: Increased confusion and agitation required wrist restraints overnight for safety. Patient is still confused this am, but calm and cooperative. MRI brain pending. Patient tolerated HD yesterday. Hypertensive this am, resumed home meds and continue PRN antihypertensives. Continue HD per Nephro. Patient is stable for transfer to Telemetry. 10/09/2021; patient is slightly agitated requiring restraints. Awaiting return to SNF when medically stable. Nephrology initiated hemodialysis, HD as needed. If renal decides that patient needs long-term hemodialysis. Case management will assist with outpatient HD chair scheduling. 10/11/2021; patient is receiving hemodialysis. Once nephrology confirms long-term HD, check with case management for outpatient HD placement. Patient continues to be confused requiring restraints. 10/12/2021; patient is more alert and awake responding appropriately. Continue current management, if he continues to be manageable, will try to DC restraints. 10/13/2021; today patient is more alert and awake,, CM assisting with outpatient HD placement. Hemodialysis per schedule MW, possible discharge in [facility] 2 days if stable. 10/14/2021; patient had permacath followed by hemodialysis today tolerated well,. Case management assisting with outpatient HD placement. 10/15/2021; patient is comfortable no new complaints. Awaiting placement/return to [facility] facility. 10/16/2021; awaiting to go back to [facility] facility. Awaiting authorization. 10/17/2021; patient is medically stable awaiting. Placement/return to [facility] facility pending authorization. 10/18/21: Patient waiting for outpatient HD set up. Waiting authorization for return back to [facility]. Continue to follow, patient denies any acute issue today. 10/19/21; pending outpatient HD set up. Patient may going to be discharged home with home health and family supervision if family agrees and insurance does approved group home stay. Need inpatient care for continuous need for hemodialysis. We will continue to follow. 10/20/21: Patient follows command but according to RN and based on my examination patient is oriented to person only. He is unable to take care of himself and needs total care. Need inpatient monitoring for hemodialysis requirement and 24/7 care. 10/21/21: Continue to monitor clinically, patient developed diarrhea. We will monitor for fever curve and CBC. Will order for stool study if continue to have diarrheal episode. Pending placement. Patient is a total care and requiring hemodialysis. Need inpatient care till dialysis arrangement could be made by CM. Otherwise medically stable for discharge. 10/22/21: Getting hemodialysis per nephro recommendation. Waiting on SNF placement and outpatient hemodialysis set up. RN reported another episode of diarrhea today. Patient without fever or without any elevation of white count. Will place on loperamide as needed for diarrhea. We will also order for stool study. 10/23/21:, Outpatient hemodialysis and SNF placement still pending. Continue to provide supportive care. Vital stable. As needed loperamide for diarrhea. Patient without fever or any elevation of white count. 10/24: Outpatient hemodialysis set has been arranged. Patient was planned to discharge today after hemodialysis but does not have a bed ready until tomorrow. Continue to follow clinicaly, follow-up sleep study. Continue loperamide and flagyl. Plan to discharge patient tomorrow to SNF with outpatient dialysis set up Care Plan Goals: Patient is medically clear for discharge. Assessment: 10/06: Remains altered but stable on 2L NC, VSS. Still hyperkalemic this am, HD in progress at the bedside. Repeat BMP a hour after HD. CT head/Brain noted. Continue CVA workup, MRI brain, US carotid, and 2D echo pending. Neurology consulted. Patient is hypoglycemic this am, s/p IV insulin for hyperkalemia, continue BG check and hypoglycemic protocol. Will order diet if patient pass bedside swallow. PT/OT/Speech consulted. Left big toe ulcer noted. Per patient's daughter, patient is following with Vascular Surgery outpatient, revascularization was performed in the [facility] in the past and they were talking of possibly amputating that left toe. No evidence of any infectious process at this time and patient is currently hemodynamicaly stable. Will get wound care for wound management. Follow up with Vascular surgery outpatient for further management. 10/07: Increased confusion and agitation required wrist restraints overnight for safety. Patient is still confused this am, but calm and cooperative. MRI brain pending. Patient tolerated HD yesterday. Hypertensive this am, resumed home meds and continue PRN antihypertensives. Continue HD per Nephro. Patient is stable for transfer to Telemetry. 10/09/2021; patient is slightly agitated requiring restraints Awaiting return to SNF when medically stable Nephrology initiated hemodialysis, HD as needed If renal decides that patient needs long-term hemodialysis Case management will assist with outpatient HD chair scheduling 10/11/2021; patient is receiving hemodialysis Once nephrology confirms long-term HD, check with case management for outpatient HD placement Patient continues to be confused requiring restraints 10/12/2021; patient is more alert and awake responding appropriately Continue current management, if he continues to be manageable, will try to DC restraints 10/13/2021; today patient is more alert and awake,, CM assisting with outpatient HD placement Hemodialysis per schedule MWF, possible discharge in [facility] facility 2 days if stable 10/14/2021; patient had permacath followed by hemodialysis today tolerated well, Case management assisting with outpatient HD placement 10/15/2021; patient is comfortable no new complaints Awaiting placement/return to [facility] facility 10/16/2021; awaiting to go back to [facility] Awaiting authorization 10/17/2021; patient is medically stable awaiting Placement/return to [facility] pending authorization. 10/18/21: Patient waiting for outpatient HD set up. Waiting authorization for return back to [facility]. Continue to follow, patient denies any acute issue today. 10/19/21; pending outpatient HD set up. Patient may going to be discharged home with home health and family supervision if family agrees and insurance does approved group home stay. Need inpatient care for continuous need for hemodialysis. We will continue to follow. 10/20/21: Patient follows command but according to RN and based on my examination patient is oriented to person only. He is unable to take care of himself and needs total care. Need inpatient monitoring for hemodialysis requirement and 24/ care. 10/21/21: Continue to monitor clinically, patient developed diarrhea. We will monitor for fever curve and CBC. Will order for stool study if continue to have diarrheal episode. Pending placement. Patient is a total care and requiring hemodialysis. Need inpatient care till dialysis arrangement could be made by CM. Otherwise medically stable for discharge. 10/22/21: Getting hemodialysis per nephro recommendation. Waiting on SNF placement and outpatient hemodialysis set up. RN reported another episode of diarrhea today. Patient without fever or without any elevation of white count. Will place on loperamide as needed for diarrhea. We will also order for stool study. 10/23/21:, Outpatient hemodialysis and SNF placement still pending. Continue to provide supportive care. Vital stable. As needed loperamide for diarrhea. Patient without fever or any elevation of white count. 10/24: Outpatient hemodialysis set has been arranged. Patient was planned to discharge today after hemodialysis but does not have a bed ready until tomorrow. Continue to follow clinicaly, follow-up sleep study. Continue loperamide and flagyl. Plan to discharge patient tomorrow to SNF with outpatient dialysis set up Follow up with: PRIMARY MD GARTH [Primary Care Provider] - 3-5 Days VIVEK JO MD [Staff Physician] - 10 Days
--- NOTE | 2021-10-25 20:29 | Progress Note ---
Assessment and Plan 71-year-old male resident of [facility] with known history of hypertension , CHF sent to the emergency room for evaluation of changes in mental status since yesterday. Patient was said not to be his normal self over the past 24 hours. Patient unable to give any good history at this time most of the information was obtained from the ER staff. Work-up in the emergency room , labs were significant for leukocytosis of 11.3, potassium of 7.7, BUN to 216 and creatinine of 18.1. EKG shows some peaked T waves. CT scan of the head consistent with features of microvascular ischemia bilateral lacunar infarcts within the basal ganglia and left central semiovale. Area of hypoattenuation involving the right temporal lobe. Subacute ischemia is not excluded. MRI recommended for further evaluation. Teleneurology consulted by the ER physician and recommendation was to have CVA work-up. Shutdown Planner was also consulted regarding lab findings and EKG findings and admitted dialysis was recommended. Patient sleeping.on room air . O2 saturation 94%. No acute respiratory distress. Patient afebrile. No leukocytosis. Blood pressure 121/66 , Pulse 66, Respirations 18. Chest ray done 10/06/21 reported Mild bibasilar linear atelectatic change. Mild chronic changes. No definite pneumonic infiltrates or effusions. No pneumothorax. Patient is on S/C Heparin and famotidine. - Patient Problems (1) CVA (cerebral vascular accident) Current Visit: Yes Status: Acute Plan to address problem: Management as per primary care and neurology. (2) Altered mental status Current Visit: Yes Status: Acute Plan to address problem: Management as per primary care. (3) HARDIK (acute kidney injury) Current Visit: Yes Status: Acute Plan to address problem: Management as per nephrology. (4) Bilateral lower leg cellulitis Current Visit: No Status: Acute Plan to address problem: Recommend to consult infectious diseases. Subjective Date of service: 10/25/21 Principal diagnosis: AMS; HARDIK; Severe hyperkalemia; Hypertension; CMOP; Mild leukocytosis Interval history: 71-year-old male resident of [facility] with known history of hypertension , CHF sent to the emergency room for evaluation of changes in mental status since yesterday. Patient was said not to be his normal self over the past 24 hours. Patient unable to give any good history at this time most of the information was obtained from the ER staff. Work-up in the emergency room , labs were significant for leukocytosis of 11.3, potassium of 7.7, BUN to 216 and creatinine of 18.1. EKG shows some peaked T waves. CT scan of the head consistent with features of microvascular ischemia bilateral lacunar infarcts within the basal ganglia and left central semiovale. Area of hypoattenuation involving the right temporal lobe. Subacute ischemia is not excluded. MRI recommended for further evaluation. Teleneurology consulted by the ER physician and recommendation was to have CVA work-up. Shutdown Planner was also consulted regarding lab findings and EKG findings and admitted dialysis was recommended. Patient sleeping.on room air . O2 saturation 94%. No acute respiratory distress. Patient afebrile. No leukocytosis. Blood pressure 121/66 , Pulse 66, Respirations 18. Chest ray done 10/06/21 reported Mild bibasilar linear atelectatic change. Mild chronic changes. No definite pneumonic infiltrates or effusions. No pneumothorax. Patient is on S/C Heparin and famotidine. Objective Vital Signs - 12hr 10/25/21 10/25/21 10/25/21 08:31 10:00 11:00 Temperature 98.3 F Pulse Rate 62 44 L Pulse Rate [ 61 Radial] Respiratory 18 Rate Blood Pressure 124/70 O2 Sat by Pulse 99 99 Oximetry 10/25/21 17:25 Temperature 98.0 F Pulse Rate 62 Pulse Rate [ Radial] Respiratory Rate Blood Pressure 103/56 O2 Sat by Pulse 100 Oximetry Constitutional: no acute distress, asleep, other (still confused.) Eyes: non-icteric ENT: oropharynx moist Neck: supple, no lymphadenopathy Effort: normal Ascultation: Bilateral: diminished breath sounds Percussion: Bilateral: not dull Cardiovascular: regular rate and rhythm Gastrointestinal: normoactive bowel sounds, soft, non-tender, non-distended Integumentary: cellulitis Extremities: other (Stasis dermatitis.) Neurologic: non-focal exam (grossly), pupils equal and round, other (Patient sleeping at this time.) Psychiatric: other (Patient sleeping.) CBC and BMP: 10/23/21 06:34 10/25/21 08:45 ABG, PT/INR, D-dimer: ABG ABG pH 7.425 pH Units (7.350-7.450) 10/09/21 13:45 ABG pCO2 35.1 mm Hg 10/09/21 13:45 ABG pO2 75.9 mm Hg (80.0-90.0) L 10/09/21 13:45 ABG O2 Saturation 96.4 % (95.0-99.0) 10/09/21 13:45 PT/INR, D-dimer PT 16.6 Sec. (12.2-14.9) H 10/05/21 21:39 INR 1.20 (0.87-1.13) H 10/05/21 21:39 Abnormal lab findings: Abnormal Labs 10/05/21 10/05/21 10/05/21 21:39 21:39 22:41 WBC 11.3 H RBC Hgb Hct RDW 15.3 H Plt Count Lymph % (Auto) 7.6 L [place] % (Auto) 7.7 H Eos % (Auto) Lymph # (Auto) 0.9 L [place] # (Auto) 0.9 H Seg Neutrophils % 83.7 H Seg Neutrophils # 9.5 H PT 16.6 H INR 1.20 H ABG pO2 ABG Hemoglobin Oxyhemoglobin Sodium Potassium Chloride Carbon Dioxide BUN Creatinine Glucose POC Glucose Calcium ALT Ammonia Total Protein Albumin Xbits-2-Pphubnsdf Boqin-0-Ibyfkkchv PEP Interpretation Triglycerides Cholesterol LDL Cholesterol Direct HDL Cholesterol PTH Intact Urine Creatinine Urine Total Protein Salicylates < 0.3 L 10/05/21 10/05/21 10/06/21 22:41 22:41 04:21 WBC RBC Hgb Hct RDW Plt Count Lymph % (Auto) [place] % (Auto) Eos % (Auto) Lymph # (Auto) [place] # (Auto) Seg Neutrophils % Seg Neutrophils # PT INR ABG pO2 ABG Hemoglobin Oxyhemoglobin Sodium Potassium 7.7 H* 6.1 H* D Chloride Carbon Dioxide 19 L BUN 216 H 224 H Creatinine 18.1 H 19.7 H Glucose 117 H 64 L POC Glucose Calcium 11.0 H ALT < 5 L Ammonia 14.0 L Total Protein 8.3 H Albumin Riggd-4-Ypidycdlg Wsnay-8-Hqdqayrzd PEP Interpretation Triglycerides Cholesterol LDL Cholesterol Direct HDL Cholesterol PTH Intact Urine Creatinine Urine Total Protein Salicylates 10/06/21 10/06/21 10/06/21 04:21 14:04 17:30 WBC RBC Hgb Hct RDW Plt Count Lymph % (Auto) [place] % (Auto) Eos % (Auto) Lymph # (Auto) [place] # (Auto) Seg Neutrophils % Seg Neutrophils # PT INR ABG pO2 ABG Hemoglobin Oxyhemoglobin Sodium Potassium Chloride Carbon Dioxide BUN 131 H Creatinine 12.7 H Glucose 157 H POC Glucose Calcium ALT Ammonia Total Protein Albumin Tskwe-2-Wgosbldtz Gpbzb-8-Jzzxekakd PEP Interpretation Triglycerides 382 H Cholesterol 273 H LDL Cholesterol Direct 151 H HDL Cholesterol 27 L PTH Intact Urine Creatinine 234.3 H Urine Total Protein 28 H Salicylates 10/07/21 10/07/21 10/07/21 05:14 05:14 05:14 WBC RBC 3.37 L Hgb 10.0 L Hct 30.1 L D RDW Plt Count 117 L Lymph % (Auto) 10.4 L [place] % (Auto) 7.9 H Eos % (Auto) Lymph # (Auto) 0.7 L [place] # (Auto) Seg Neutrophils % 80.2 H Seg Neutrophils # PT INR ABG pO2 ABG Hemoglobin Oxyhemoglobin Sodium Potassium Chloride Carbon Dioxide BUN 123 H Creatinine 10.9 H Glucose 119 H POC Glucose Calcium ALT Ammonia Total Protein Albumin Zbvzn-9-Fgdyenggy Vslcp-4-Ylpdkcxqw PEP Interpretation Triglycerides Cholesterol LDL Cholesterol Direct HDL Cholesterol PTH Intact 333.5 H Urine Creatinine Urine Total Protein Salicylates 10/07/21 10/07/21 10/08/21 05:14 21:43 04:56 WBC RBC 3.59 L Hgb 10.4 L Hct 32.2 L RDW Plt Count 116 L Lymph % (Auto) [place] % (Auto) Eos % (Auto) Lymph # (Auto) [place] # (Auto) Seg Neutrophils % Seg Neutrophils # PT INR ABG pO2 ABG Hemoglobin Oxyhemoglobin Sodium Potassium Chloride Carbon Dioxide BUN Creatinine Glucose POC Glucose 144 H Calcium ALT Ammonia Total Protein Albumin 3.7 L Opwkk-4-Fhdvjiejr 0.4 H Wytls-6-Eeeygfszd 1.0 H PEP Interpretation see below H Triglycerides Cholesterol LDL Cholesterol Direct HDL Cholesterol PTH Intact Urine Creatinine Urine Total Protein Salicylates 10/08/21 10/08/21 10/08/21 04:56 11:22 15:36 WBC RBC Hgb Hct RDW Plt Count Lymph % (Auto) [place] % (Auto) Eos % (Auto) Lymph # (Auto) [place] # (Auto) Seg Neutrophils % Seg Neutrophils # PT INR ABG pO2 ABG Hemoglobin Oxyhemoglobin Sodium 147 H Potassium Chloride 109.8 H Carbon Dioxide 20 L BUN 123 H Creatinine 9.7 H Glucose 110 H POC Glucose 145 H 139 H Calcium ALT Ammonia Total Protein Albumin Hxdbz-1-Qkeaejedu Lytfc-0-Dqxjiiazf PEP Interpretation Triglycerides Cholesterol LDL Cholesterol Direct HDL Cholesterol PTH Intact Urine Creatinine Urine Total Protein Salicylates 10/09/21 10/09/21 10/09/21 12:36 13:45 18:01 WBC RBC Hgb Hct RDW Plt Count Lymph % (Auto) [place] % (Auto) Eos % (Auto) Lymph # (Auto) [place] # (Auto) Seg Neutrophils % Seg Neutrophils # PT INR ABG pO2 75.9 L ABG Hemoglobin 10.8 L Oxyhemoglobin 94.8 L Sodium Potassium Chloride Carbon Dioxide BUN Creatinine Glucose POC Glucose 121 H 143 H Calcium ALT Ammonia Total Protein Albumin Hndsu-6-Nfossnayk Asagl-5-Xkxcavgtg PEP Interpretation Triglycerides Cholesterol LDL Cholesterol Direct HDL Cholesterol PTH Intact Urine Creatinine Urine Total Protein Salicylates 10/10/21 10/10/21 10/11/21 00:16 05:09 05:13 WBC RBC Hgb Hct RDW Plt Count Lymph % (Auto) [place] % (Auto) Eos % (Auto) Lymph # (Auto) [place] # (Auto) Seg Neutrophils % Seg Neutrophils # PT INR ABG pO2 ABG Hemoglobin Oxyhemoglobin Sodium 147 H Potassium Chloride 109.0 H Carbon Dioxide BUN 103 H 45 H Creatinine 6.8 H 4.6 H Glucose 108 H POC Glucose 108 H Calcium ALT Ammonia Total Protein Albumin Stlnh-2-Xiikxinpq Vtgwg-5-Pxibbngfl PEP Interpretation Triglycerides Cholesterol LDL Cholesterol Direct HDL Cholesterol PTH Intact Urine Creatinine Urine Total Protein Salicylates 10/12/21 10/12/21 10/13/21 04:50 16:31 00:01 WBC RBC Hgb Hct RDW Plt Count Lymph % (Auto) [place] % (Auto) Eos % (Auto) Lymph # (Auto) [place] # (Auto) Seg Neutrophils % Seg Neutrophils # PT INR ABG pO2 ABG Hemoglobin Oxyhemoglobin Sodium Potassium Chloride Carbon Dioxide BUN 52 H Creatinine 4.9 H Glucose POC Glucose 117 H 111 H Calcium ALT Ammonia Total Protein Albumin Weaxg-1-Uwudgyrcn Cwova-1-Ltyridqjd PEP Interpretation Triglycerides Cholesterol LDL Cholesterol Direct HDL Cholesterol PTH Intact Urine Creatinine Urine Total Protein Salicylates 10/13/21 10/13/21 10/13/21 12:30 18:27 23:30 WBC RBC Hgb Hct RDW Plt Count Lymph % (Auto) [place] % (Auto) Eos % (Auto) Lymph # (Auto) [place] # (Auto) Seg Neutrophils % Seg Neutrophils # PT INR ABG pO2 ABG Hemoglobin Oxyhemoglobin Sodium Potassium Chloride Carbon Dioxide BUN Creatinine Glucose POC Glucose 116 H 133 H 109 H Calcium ALT Ammonia Total Protein Albumin Qijnc-1-Pvtwgnhuu Xymbj-6-Dhbdxdakk PEP Interpretation Triglycerides Cholesterol LDL Cholesterol Direct HDL Cholesterol PTH Intact Urine Creatinine Urine Total Protein Salicylates 10/14/21 10/14/21 10/14/21 04:40 04:40 17:31 WBC RBC 2.81 L Hgb 8.3 L Hct 25.3 L RDW Plt Count Lymph % (Auto) [place] % (Auto) 14.4 H Eos % (Auto) Lymph # (Auto) [place] # (Auto) Seg Neutrophils % Seg Neutrophils # PT INR ABG pO2 ABG Hemoglobin Oxyhemoglobin Sodium Potassium 3.5 L Chloride Carbon Dioxide BUN 47 H Creatinine 5.0 H Glucose POC Glucose 106 H Calcium ALT Ammonia Total Protein Albumin Gcadc-4-Qugoslffb Yoiom-7-Pchmpqmek PEP Interpretation Triglycerides Cholesterol LDL Cholesterol Direct HDL Cholesterol PTH Intact Urine Creatinine Urine Total Protein Salicylates 10/16/21 10/18/21 10/18/21 16:02 16:49 21:46 WBC RBC Hgb Hct RDW Plt Count Lymph % (Auto) [place] % (Auto) Eos % (Auto) Lymph # (Auto) [place] # (Auto) Seg Neutrophils % Seg Neutrophils # PT INR ABG pO2 ABG Hemoglobin Oxyhemoglobin Sodium Potassium Chloride Carbon Dioxide BUN Creatinine Glucose POC Glucose 119 H 117 H 116 H Calcium ALT Ammonia Total Protein Albumin Pxjsh-6-Dcbjwiopb Zkzgt-2-Pmtfxetmi PEP Interpretation Triglycerides Cholesterol LDL Cholesterol Direct HDL Cholesterol PTH Intact Urine Creatinine Urine Total Protein Salicylates 10/19/21 10/20/21 10/21/21 16:18 10:59 17:32 WBC RBC Hgb Hct RDW Plt Count Lymph % (Auto) [place] % (Auto) Eos % (Auto) Lymph # (Auto) [place] # (Auto) Seg Neutrophils % Seg Neutrophils # PT INR ABG pO2 ABG Hemoglobin Oxyhemoglobin Sodium Potassium Chloride 96.8 L Carbon Dioxide BUN 29 H Creatinine 3.5 H Glucose 102 H POC Glucose 144 H 112 H Calcium ALT Ammonia Total Protein Albumin Xcbdh-0-Uowvftqjf Bevew-1-Aabbhvkyn PEP Interpretation Triglycerides Cholesterol LDL Cholesterol Direct HDL Cholesterol PTH Intact Urine Creatinine Urine Total Protein Salicylates 10/22/21 10/22/21 10/23/21 00:10 16:42 06:34 WBC RBC 2.55 L Hgb 7.6 L Hct 23.2 L RDW Plt Count Lymph % (Auto) 37.6 H [place] % (Auto) 13.8 H Eos % (Auto) 4.4 H Lymph # (Auto) [place] # (Auto) Seg Neutrophils % Seg Neutrophils # PT INR ABG pO2 ABG Hemoglobin Oxyhemoglobin Sodium Potassium Chloride Carbon Dioxide BUN Creatinine Glucose POC Glucose 114 H 110 H Calcium ALT Ammonia Total Protein Albumin Atndj-7-Fyqnwlllw Icyna-4-Nuxapjxhn PEP Interpretation Triglycerides Cholesterol LDL Cholesterol Direct HDL Cholesterol PTH Intact Urine Creatinine Urine Total Protein Salicylates 10/23/21 10/24/21 10/25/21 06:34 10:35 08:45 WBC RBC Hgb Hct RDW Plt Count Lymph % (Auto) [place] % (Auto) Eos % (Auto) Lymph # (Auto) [place] # (Auto) Seg Neutrophils % Seg Neutrophils # PT INR ABG pO2 ABG Hemoglobin Oxyhemoglobin Sodium 135 L Potassium 3.2 L 3.4 L Chloride 96.5 L Carbon Dioxide BUN 23 H 25 H Creatinine 3.6 H 3.7 H 3.1 H Glucose 119 H POC Glucose Calcium ALT Ammonia Total Protein Albumin Xwhwb-5-Uoniiicrx Rcxft-5-Hqdlqxcgr PEP Interpretation Triglycerides Cholesterol LDL Cholesterol Direct HDL Cholesterol PTH Intact Urine Creatinine Urine Total Protein Salicylates 10/25/21 17:22 WBC RBC Hgb Hct RDW Plt Count Lymph % (Auto) [place] % (Auto) Eos % (Auto) Lymph # (Auto) [place] # (Auto) Seg Neutrophils % Seg Neutrophils # PT INR ABG pO2 ABG Hemoglobin Oxyhemoglobin Sodium Potassium Chloride Carbon Dioxide BUN Creatinine Glucose POC Glucose 120 H Calcium ALT Ammonia Total Protein Albumin Zybxw-7-Pamdvvyle Jilqw-3-Mzzdwsqkc PEP Interpretation Triglycerides Cholesterol LDL Cholesterol Direct HDL Cholesterol PTH Intact Urine Creatinine Urine Total Protein Salicylates Allied health notes reviewed: nursing
[2021-10-26] MEDS: HEPARIN 5,000 UNIT/1 ML VIAL SUB-Q SCH (06:47)
--- NOTE | 2021-10-26 08:42 | Progress Note ---
Assessment and Plan Impression * Acute Kidney Injury secondary to ?ATN --STAT HD started 10/06 for hyperkalemia, azotemia/uremia; s/p daily HD x3 days given uremia/azotemia --SCr 1.2 earlier this year so suspect acute kidney injury --Permcath insertion on 10/14 * CVA * Hypertension Plan * No acute need for HD today. Patient dialyzed on Sunday. Will change to TTS schedule starting tomorrow * Monitor for evidence of renal recovery * Await pending serologies * Dose medications for renal function * Avoid potential nephrotoxnis * Outpatient HD clinic placement at [facility] * Stable for discharge from a renal standpoint Subjective Date of service: 10/26/21 Principal diagnosis: AMS; HARDIK; Severe hyperkalemia; Hypertension; CMOP; Mild leukocytosis Interval history: Patient has no complaints Objective - Vital Signs Vital signs: Vital Signs - 12hr 10/25/21 10/25/21 10/25/21 21:48 22:00 23:00 Temperature Pulse Rate 65 51 L Pulse Rate [ 61 Radial] Respiratory 18 Rate Blood Pressure 121/67 O2 Sat by Pulse 98 Oximetry 10/25/21 10/26/21 23:14 04:38 Temperature 98.2 F 97.9 F Pulse Rate 58 L 47 L Pulse Rate [ Radial] Respiratory 14 14 Rate Blood Pressure 107/56 136/65 O2 Sat by Pulse 98 100 Oximetry - General Appearance General appearance: well-developed, frail EENT: ATNC Respiratory: Present: Clear to Ascultation Cardiology: regular, S1S2 Gastrointestinal: normal, no tenderness, no distended Integumentary: no rash, warm and dry Musculoskeletal: other (no edema) Psychiatric: cooperative - Lab 10/23/21 06:34 10/25/21 08:45 Most recent lab results ABG pH 7.425 pH Units (7.350-7.450) 10/09/21 13:45 ABG pCO2 35.1 mm Hg 10/09/21 13:45 ABG pO2 75.9 mm Hg (80.0-90.0) L 10/09/21 13:45 ABG HCO3 22.5 mmol/L (20.0-26.0) 10/09/21 13:45 ABG O2 Saturation 96.4 % (95.0-99.0) 10/09/21 13:45 Calcium 8.6 mg/dL (8.4-10.2) 10/25/21 08:45 Urine Creatinine 234.3 mg/dL (0.1-20.0) H 10/06/21 14:04 Urine Total Protein 28 mg/dL (5-11.8) H 10/06/21 14:04 Medications & Allergies - Medications Allergies/Adverse Reactions: Allergies No Known Allergies Allergy (Verified 05/09/21 13:32) Home Medications: Home Medications Medication Instructions Recorded Confirmed Last Taken Type carvediloL [Coreg] 6.25 mg PO BID #60 tablet 05/11/21 10/08/21 Unknown Rx Aspirin [Aspirin BABY CHEW TAB] 81 mg PO QDAY tab.chew 10/24/21 Unknown Rx AtorvaSTATin [Lipitor] 40 mg PO QHS tablet 10/24/21 Unknown Rx Loperamide [Imodium] 2 mg PO Q2H PRN capsule 10/24/21 Unknown Rx Metoclopramide [Reglan ORAL LIQ] 2.5 mg PO Q6H PRN oral.liqd 10/24/21 Unknown Rx NIFEdipine XL [Procardia Xl] 90 mg PO QDAY tablet 10/24/21 Unknown Rx Promethazine [Phenergan SUPPOS] 25 mg SC Q6H PRN supp.rect 10/24/21 Unknown Rx Active Medications: Generic Name Dose Route Start Last Admin Trade Name Freq PRN Reason Stop Dose Admin Acetaminophen 650 mg 10/06/21 01:42 Acetaminophen 325 Mg Tab PO Q4H PRN Pain MILD(1-3)/Fever >100.5/MARROQUIN Aspirin 81 mg 10/08/21 10:00 10/25/21 10:54 Aspirin 81 Mg Tab Chew PO 81 mg QDAY FREDI Administration Atorvastatin Calcium 40 mg 10/06/21 22:00 10/25/21 21:49 Atorvastatin 40 Mg Tab PO 40 mg QHS FREDI Administration Bisacodyl 10 mg 10/06/21 01:42 Bisacodyl 10 Mg Rect Supp SC QDAY PRN Constipation Carvedilol 6.25 mg 10/07/21 10:00 10/25/21 21:48 Carvedilol 6.25 Mg Tab PO 6.25 mg BID FREDI Administration Dextrose 50 ml 10/06/21 01:42 Dextrose 50% In Water (25gm) 50 Ml Syringe IV Q30MIN PRN Hypoglycemia Protocol Epoetin Cm-epbx 10,000 unit 10/17/21 16:27 Epoetin Cm-Epbx 10,000 Unit/1 Ml Vial IV DESHAWN PRN hemodialysis Famotidine 20 mg 10/07/21 10:00 10/25/21 10:54 Famotidine 20 Mg Tab PO 20 mg DAILY FREDI Administration Heparin Sodium (Porcine) 5,000 unit 10/06/21 14:00 10/26/21 06:47 Heparin 5,000 Unit/1 Ml Vial SUB-Q 5,000 unit Q8HR FREDI Administration Hydralazine HCl 10 mg 10/06/21 18:38 10/08/21 00:41 Hydralazine 20 Mg/1 Ml Inj IV 10 mg Q4HR PRN Administration Hypertension Loperamide HCl 2 mg 10/24/21 11:00 Loperamide 2 Mg Cap PO Q2H PRN Diarrhea Magnesium Hydroxide 30 ml 10/06/21 01:42 Magnesium Hydroxide (Mom) Oral Liqd Udc PO Q4H PRN Constipation Metoclopramide HCl 2.5 mg 10/06/21 01:59 Metoclopramide 10 Mg/10 Ml Oral Liqd PO Q6H PRN Nausea And Vomiting Nifedipine 90 mg 10/09/21 10:00 10/25/21 10:54 Nifedipine Xl 90 Mg Tab PO 90 mg QDAY FREDI Administration Ondansetron HCl 4 mg 10/06/21 01:42 Ondansetron 4 Mg/2 Ml Inj IV Q8H PRN Nausea And Vomiting Promethazine HCl 25 mg 10/06/21 01:42 Promethazine 25 Mg Rect Supp SC Q6H PRN Nausea And Vomiting Sodium Chloride 10 ml 10/06/21 10:00 10/25/21 21:49 Sodium Chloride 0.9% 10 Ml Flush Syringe IV 10 ml BID FREDI Administration Sodium Chloride 10 ml 10/06/21 01:42 Sodium Chloride 0.9% 10 Ml Flush Syringe IV PRN PRN LINE FLUSH
[2021-10-26] MEDS ORDERED: SODIUM CHLORIDE 0.9% 100 ML IV PRN (09:00)
[2021-10-26] MEDS: FAMOTIDINE 20 MG TAB PO SCH (11:02)
[2021-10-26] MEDS: NIFEdipine XL 90 MG TAB PO SCH (11:02)
[2021-10-26] MEDS: ASPIRIN 81 MG TAB CHEW PO SCH (11:02)
[2021-10-26] MEDS: carvediloL 6.25 MG TAB PO SCH (11:03)
[2021-10-26 11:06] VITALS: BP 133/64
== END 2021-10-26 18:00 | DRG 673 ==
LOC: ED 20:11 → 4A 10-06 01:43 → CC1 10-06 03:26 → 4A 10-07 14:17
PROVIDERS: ADMIT Internal Medicine Geriatric Medicine; ATTEND Student in an Organized Health Care Education/Training Program
PROC: 5A1D70Z Performance of Urinary Filtration, Intermittent, Less than 6 Hours Per Day (ICD-10-PCS; 2021-10-06)
PROC: 02HV33Z Insertion of Infusion Device into Superior Vena Cava, Percutaneous Approach (ICD-10-PCS; 2021-10-06)
PROC: B548ZZA Ultrasonography of Superior Vena Cava, Guidance (ICD-10-PCS; 2021-10-06)
PROC: 4A033R1 Measurement of Arterial Saturation, Peripheral, Percutaneous Approach (ICD-10-PCS; 2021-10-09)
PROC: 5A1D70Z Performance of Urinary Filtration, Intermittent, Less than 6 Hours Per Day (ICD-10-PCS; 2021-10-10)
PROC: 5A1D70Z Performance of Urinary Filtration, Intermittent, Less than 6 Hours Per Day (ICD-10-PCS; 2021-10-12)
PROC: 0JH63XZ Insertion of Tunneled Vascular Access Device into Chest Subcutaneous Tissue and Fascia, Percutaneous Approach (ICD-10-PCS; principal; 2021-10-14)
PROC: 5A1D70Z Performance of Urinary Filtration, Intermittent, Less than 6 Hours Per Day (ICD-10-PCS; 2021-10-14)
PROC: 02H633Z Insertion of Infusion Device into Right Atrium, Percutaneous Approach (ICD-10-PCS; 2021-10-14)
PROC: B548ZZA Ultrasonography of Superior Vena Cava, Guidance (ICD-10-PCS; 2021-10-14)
PROC: 5A1D70Z Performance of Urinary Filtration, Intermittent, Less than 6 Hours Per Day (ICD-10-PCS; 2021-10-17)
PROC: 5A1D70Z Performance of Urinary Filtration, Intermittent, Less than 6 Hours Per Day (ICD-10-PCS; 2021-10-19)
PROC: 5A1D70Z Performance of Urinary Filtration, Intermittent, Less than 6 Hours Per Day (ICD-10-PCS; 2021-10-21)
PROC: 5A1D70Z Performance of Urinary Filtration, Intermittent, Less than 6 Hours Per Day (ICD-10-PCS; 2021-10-24)
DX: N17.0 Acute kidney failure with tubular necrosis (principal); I63.9 Cerebral infarction, unspecified; G92.8 Other toxic encephalopathy; I13.0 Hypertensive heart and chronic kidney disease with heart failure and stage 1 through stage 4 chronic kidney disease, or unspecified chronic kidney disease; I42.9 Cardiomyopathy, unspecified; L03.115 Cellulitis of right lower limb; L03.116 Cellulitis of left lower limb; E44.1 Mild protein-calorie malnutrition; Z68.1 Body mass index [BMI] 19.9 or less, adult; E16.2 Hypoglycemia, unspecified; L97.529 Non-pressure chronic ulcer of other part of left foot with unspecified severity; Z20.822 Contact with and (suspected) exposure to COVID-19; F32.9 Major depressive disorder, single episode, unspecified; I50.9 Heart failure, unspecified; E87.5 Hyperkalemia; N18.9 Chronic kidney disease, unspecified; D69.6 Thrombocytopenia, unspecified
CPT/HCPCS: 36415; 36558; 36589; 36600; 70450; 70551; 71045; 76770; 77001; 80048; 80053; 80061; 80074; 80307; 80320; 81001; 82140; 82570; 82803; 82962; 83970; 84156; 84165; 85025; 85027; 85610; 86021; 86038; 86160; 93005; 93306; 93880; G0378; J3490; Q9967; C1750; C8929; G0480; J0360; J0690; J1644; J1815; J7030; J7040; J7050; U0003

== ENCOUNTER 2021-11-27 12:54 | Emergency (ER) | payer OTHER, MEDICARE ==
[2021-11-27 14:02] LABS: Hematocrit 36.7 % (35.5-45.6); Hemoglobin 11.6 gm/dl (11.8-15.2); Mean Corpuscular HGB Conc 32 % (32-34); Mean Corpuscular Volume 94 fl (84-94); Platelet Count 271 K/mm3 (140-440); Red Blood Count 3.91 M/mm3 (3.65-5.03)
[2021-11-27 14:15] LABS: Calcium 9.3 mg/dL (8.4-10.2)
--- NOTE | 2021-11-27 14:22 | Emergency Department Report ---
ED Recheck HPI - General Chief Complaint: Medical Clearance Stated Complaint: MISSED DIALYSIS Time Seen by Provider: 11/27/21 14:18 Source: patient, EMS Mode of arrival: Stretcher Limitations: No Limitations - History of Present Illness Initial Comments: 71 YO COMES TO ER AFTER MISSING HD YESTERDAY HERE TO GET EMERGENT HD NO COMPLAINTS NO CP NO SOB MD Complaint: other Symptoms Since Prior Visit: no new symptoms Associated Symptoms: none - Related Data Previous Rx's Medication Instructions Recorded Last Taken Type carvediloL [Coreg] 6.25 mg PO BID #60 tablet 05/11/21 Unknown Rx Aspirin [Aspirin BABY CHEW TAB] 81 mg PO QDAY tab.chew 10/24/21 Unknown Rx AtorvaSTATin [Lipitor] 40 mg PO QHS tablet 10/24/21 Unknown Rx Loperamide [Imodium] 2 mg PO Q2H PRN capsule 10/24/21 Unknown Rx Metoclopramide [Reglan ORAL LIQ] 2.5 mg PO Q6H PRN oral.liqd 10/24/21 Unknown Rx NIFEdipine XL [Procardia Xl] 90 mg PO QDAY tablet 10/24/21 Unknown Rx Promethazine [Phenergan SUPPOS] 25 mg [place] Q6H PRN supp.rect 10/24/21 Unknown Rx Allergies Allergy/AdvReac Type Severity Reaction Status Date / Time No Known Allergies Allergy Verified 11/27/21 12:56 ED Review of Systems ROS: Stated complaint: MISSED DIALYSIS Other details as noted in HPI Comment: All other systems reviewed and negative ED Past Medical Hx - Past Medical History Previous Medical History?: Yes Hx Hypertension: Yes Hx Congestive Heart Failure: Yes Hx Psychiatric Treatment: (depression) - Surgical History Past Surgical History?: Yes - Family History Family history: no significant - Social History Smoking Status: Never Smoker Substance Use Type: None - Medications Home Medications: Home Medications Medication Instructions Recorded Confirmed Last Taken Type carvediloL [Coreg] 6.25 mg PO BID #60 tablet 05/11/21 10/08/21 Unknown Rx Aspirin [Aspirin BABY CHEW TAB] 81 mg PO QDAY tab.chew 10/24/21 Unknown Rx AtorvaSTATin [Lipitor] 40 mg PO QHS tablet 10/24/21 Unknown Rx Loperamide [Imodium] 2 mg PO Q2H PRN capsule 10/24/21 Unknown Rx Metoclopramide [Reglan ORAL LIQ] 2.5 mg PO Q6H PRN oral.liqd 10/24/21 Unknown Rx NIFEdipine XL [Procardia Xl] 90 mg PO QDAY tablet 10/24/21 Unknown Rx Promethazine [Phenergan SUPPOS] 25 mg [place] Q6H PRN supp.rect 10/24/21 Unknown Rx ED Physical Exam - General Limitations: No Limitations General appearance: alert, in no apparent distress - Head Head exam: Present: atraumatic, normocephalic - Eye Eye exam: Present: normal appearance - ENT ENT exam: Present: mucous membranes dry - Neck Neck exam: Present: normal inspection - Respiratory Respiratory exam: Present: normal lung sounds bilaterally. Absent: respiratory distress - Cardiovascular Cardiovascular Exam: Present: regular rate, normal rhythm. Absent: systolic murmur, diastolic murmur, rubs, gallop - GI/Abdominal GI/Abdominal exam: Present: soft, normal bowel sounds - Rectal Rectal exam: Present: deferred - Extremities Exam Extremities exam: Present: normal inspection - Back Exam Back exam: Present: normal inspection - Neurological Exam Neurological exam: Present: alert, oriented X3 - Psychiatric Psychiatric exam: Present: normal affect, normal mood - Skin Skin exam: Present: warm, dry, intact, normal color. Absent: rash ED Course Vital Signs 11/27/21 12:54 Temperature 98.1 F Pulse Rate 60 Respiratory 18 Rate Blood Pressure 112/60 [Left] O2 Sat by Pulse 99 Oximetry ED Recheck MDM - Core Measures Measure Exclusions: not indicated - Medical Decision Making Vital Signs 11/27/21 12:54 Temperature 98.1 F Pulse Rate 60 Respiratory 18 Rate Blood Pressure 112/60 [Left] O2 Sat by Pulse 99 Oximetry Lab Results 11/27/21 11/27/21 Range/Units 13:26 13:26 WBC 5.2 (4.5-11.0) K/mm3 RBC 3.91 (3.65-5.03) M/mm3 Hgb 11.6 L (11.8-15.2) gm/dl Hct 36.7 (35.5-45.6) % MCV 94 (84-94) fl MCH 30 (28-32) pg MCHC 32 (32-34) % RDW 17.0 H (13.2-15.2) % Plt Count 271 (140-440) K/mm3 Sodium 143 (137-145) mmol/L Potassium 4.2 (3.6-5.0) mmol/L Chloride 100.1 (98-107) mmol/L Carbon Dioxide 29 (22-30) mmol/L Anion Gap 18 mmol/L BUN 43 H (9-20) mg/dL Creatinine 4.1 H (0.8-1.3) mg/dL Estimated GFR 17 ml/min BUN/Creatinine Ratio 10 % Glucose 111 H (75-100) mg/dL Calcium 9.3 (8.4-10.2) mg/dL Phosphorus 2.40 L (2.5-4.5) mg/dL NT-Pro-B Natriuret Pep 1476 H (0-900) pg/mL LABS NOTED PT DRY ON EXAM NO SOB NO CP NO INDICATION FOR EMERGENT HD DC HOME WITH NEPRHOLOGY/HD FOLLOW UP Critical care attestation.: If time is entered above; I have spent that time in minutes in the direct care of this critically ill patient, excluding procedure time. ED Disposition Clinical Impression: Dialysis complication Disposition: HOME / SELF CARE / HOMELESS Is pt being admited?: No Does the pt Need Aspirin: No Condition: Stable Additional Instructions: NO NEED FOR EMERGENT HD RETURN TO [facility] FOR HD ON SUNDAY Time of Disposition: 14:25
[2021-11-27 20:51] VITALS: BP 127/74
== END 2021-11-27 20:51 ==
LOC: ED 12:54
DX: T80.90XA Unspecified complication following infusion and therapeutic injection, initial encounter (principal); I10 Essential (primary) hypertension; F32.A Depression, unspecified
CPT/HCPCS: 36415; 80048; 83880; 84100; 85027; 99284